=== PATIENT | male | born 1945 | race Caucasian/White ===

== ENCOUNTER 2023-02-06 15:15 | Inpatient (IN) ==
--- NOTE | 2023-02-06 16:35 | XRay Report ---
XR chest 1V not portable HISTORY: Sepsis COMPARISON: None. FINDINGS: No pneumothorax. There are low lung volumes. There is a small right pleural effusion. The r ight Port-A-Cath runs in the distal SVC. The cardiac silhouette is normal in size. There is mild cent ral pulmonary vascular congestion without overt edema. No focal lung consolidations to suggest pneumo verenice. Right basilar linear densities favor subsegmental atelectasis. IMPRESSION: 1. Low lung volumes. 2. Small right pleural effusion. 3. Mild pulmonary vascular congestion without overt edema. ACT 112: Negative or not required by law. Electronically signed by: Clarke Garcia M.D. 02/06/2023 4:34 PM
[2023-02-06 17:28] LABS: Basophils # (auto) 0.04 K/uL (0.00-0.20); Basophils % (auto) 0.6 %; Eosinophils # (auto) 0.02 K/uL (0.00-0.50); Eosinophils % (auto) 0.3 %; Hematocrit (blood only) 31.5 % (42.0-52.0); Hemoglobin 10.9 g/dl (14.0-18.0); Immature Granulocytes # (auto) 0.11 K/uL (0.01-0.20); Immature Granulocytes % (auto) 1.7 %; Lymphocytes # (auto) 1.17 K/uL (1.20-3.40); Mean Corpuscular Hemoglobin 35.9 pg (25.0-34.0); Mean Corpuscular Hgb Conc 34.6 g/dL (32.0-36.0); Mean Corpuscular Volume 103.6 fL (80.0-100.0); Mean Platelet Volume 9.7 fL (9.4-12.4); Monocytes # (auto) 1.44 K/uL (0.11-0.59); Monocytes % (auto) 22.2 %; Neutrophils # (auto) 3.71 K/uL (1.40-6.50); Neutrophils % (auto) 57.2 %; Nucleated RBC # (auto) 0.03 K/uL (0.00-0.12); Nucleated RBC % (auto) 0.5 %; Platelet Count 226 K/uL (130-400); RDW Coefficient of Variation 17.2 % (11.5-14.5); RDW Standard Deviation 64.7 fL (36.4-46.3); Red Blood Count 3.04 M/uL (4.70-6.10); White Blood Count 6.49 K/ul (4.8-10.8)
[2023-02-06 17:32] LABS: Albumin Globulin Ratio 0.9 (0.9-2); Albumin Level 2.9 gm/dl (3.4-5.0); BUN Creatinine Ratio 20.4 (10-20); Calcium 8.7 mg/dl (8.6-10.3); Creatinine Clr Calc Pharmacy 64.4 ml/min; Est GFR (African American) 91.5 ml/min; Est GFR (Non-African American) 78.9 ml/min; Globulin 3.1 gm/dl (2.5-4.0); Magnesium 1.8 mg/dl (1.7-2.4); Potassium 3.6 mmol/L (3.5-5.1)
--- NOTE | 2023-02-06 17:36 | Emergency Department Note ---
Impression & Plan Ascites, DVT (deep venous thrombosis), Pedal edema, Metastatic cancer, Elevated lactic acid level ED Provider Note NAME: SINCERE FATIMA AGE: 77 SEX: M : 1945 ARRIVES VIA: Walk-In INFORMANT: [Patient][family] ED PROVIDER(S): [Power Acosta MD] CHIEF COMPLAINT: Swelling HISTORY OF PRESENT ILLNESS: The patient is a 77-year-old male who presents to the ER with increasing abdomin al swelling for the last 2 or 3 days. He does have pedal edema bilaterally as well but, the leg swelling is not new. He complains of some pain to swallow for the last 2 days. The pain is across the lower chest. He has not been short of breath. No fever. No real abdominal pain. The patient was seen in the outpatient setting and told to report the ED for further work-up and likely, eventually, a paracentesis. The patient has a history of DVT as well as colon cancer. He is currently on Eliquis. PMHx/PSHx: See Below SOCIAL HISTORY: See Below. PHYSICAL EXAM: GENERAL: Patient is in no acute distress. HEENT: No acute trauma, normocephalic atraumatic, mucous membranes moist, no nasal congestion. NECK: No stridor, no adenopathy, no meningismus, trachea is midline. LUNGS: Crackles heard at both lower lung rodriguez, no wheezing, no respiratory distress. HEART: Without murmurs gallops or rubs, regular rate and rhythm. Heart tones are quite distant. ABDOMEN: Soft, nontender, bowel sounds positive, no peritonitis. Abdominal distention noted. EXTREMITIES: No cyanosis, moderate bilateral pedal edema, full range of motion of all the joints without pain or difficulty, no signs for acute trauma. NEUROLOGIC: Oriented x 3, no acute motor or sensory deficits, no focal weakness. SKIN: No rash, no jaundice, no diaphoresis. Pale. DIFFERENTIAL DIAGNOSIS: Ascites, DVT, bowel obstruction, renal or liver failure, electrolyte imbalance, venous insufficiency, fluid overload, CHF, among others. EMERGENCY DEPARTMENT COURSE/PROCEDURES: Prior/Outside records reviewed: Heme/oncology note. ECG per my interpretation: Indication was swelling and edema. The ECG shows a normal sinus rhythm with a rate of 100. There is diffuse nonspecific ST change. There is no obvious ST elevation, no PVCs. QTc is 454. Continuous Cardiac Monitoring per my interpretation: An order was placed for continuous cardiac monitoring. The monitor shows a rate of 80 with normal sinus rhythm. MEDICAL DECISION MAKING: There is no leukocytosis. The patient does have a mild anemia, likely from his cancer and chronic illness. There are no old values to use for comparison. There was a normal platelet count. INR was slightly elevated. No concerning electrolyte abnormality, no renal failure. Lactic acid level was elevated consistent with potential infection versus just dehydration. Alk phos was somewhat elevated consistent with his metastatic cancer. Procalcitonin level was not not elevated making serious bacterial infection less likely. ECG showed a normal sinus rhythm, no ischemia. Cardiac enzyme testing x1 was not consistent with acute cardiac injury. Abdominal and pelvis CT showed ascites plus findings consistent with metastatic cancer. There was no bowel obstruction. There was a DVT found incidentally on the CT scan. Bilateral lower extremity ultrasound shows an extensive DVT on the right. Chest film shows some parenchymal congestion, no pneumonia per my review. On my exam, there was no peritonitis. The patient was not febrile or toxic. Patient received a 500 cc saline bolus. He was given IV cefepime as empiric antibiotic coverage. The patient is in need of a hospital stay. He has ascites. He may benefit from a paracentesis as an inpatient. He has significant edema and was found to have a extensive right leg DVT. He has metastatic cancer. I did speak with the patient and his family, hospitalization is indicated for further work-up and care. DISPOSITION: Patient's presentation and findings warrant a hospital stay. Past Med/Surg History Medical History Metastatic cancer Social History Feels Safe at Home: Yes Home Meds Home Medications Medication Instructions Recorded Confirmed apixaban 5 mg tablet (Eliquis) 5 mg PO BID 02/07/23 02/07/23 buspirone 10 mg tablet 10 mg PO TID 02/07/23 02/07/23 escitalopram oxalate 10 mg tablet 10 mg PO DAILY 02/07/23 02/07/23 hydrochlorothiazide 25 mg tablet 25 mg PO DAILY 02/07/23 02/07/23 oxycodone 5 mg tablet 5 mg PO Q4H PRN Pain 02/07/23 02/07/23 spironolactone 50 mg tablet 50 mg PO DAILY 02/07/23 02/07/23 Results & Data (ED) Vital Signs Vital Signs - 24 hr 02/06/23 15:46 02/06/23 17:22 02/06/23 17:22 Temperature 37.0 C Temperature Source Oral Pulse Rate 108 H 80 Pulse Rate [Apical] 80 Pulse Rate from SpO2 Sensor Pulse Rhythm Regular Pulse Rhythm [Apical] Regular Pulse Strength [Apical] Respiratory Rate 20 20 20 Respiratory Effort / Characteristics Non-Labored Non-Labored Spontaneous Respiratory Depth Normal Normal Respiratory Pattern Blood Pressure 98/74 L Blood Pressure [Left Arm] 140/97 Blood Pressure Mean 82 Blood Pressure Mean [Left Arm] 111 Blood Pressure Position Sitting Blood Pressure Position [Left Arm] Pulse Oximetry 97 99 99 Oxygen Delivery Method Room Air Room Air Room Air Sepsis Recent Fever Within 48 Hours No Sepsis New/Unexplained Change in Mental Status No Sepsis Action Taken by Nursing Physician Notified 02/06/23 17:42 02/06/23 18:33 02/06/23 18:43 Temperature Temperature Source Pulse Rate 82 Pulse Rate [Apical] 85 Pulse Rate from SpO2 Sensor Pulse Rhythm Pulse Rhythm [Apical] Regular Pulse Strength [Apical] Normal Respiratory Rate 20 Respiratory Effort / Characteristics Non-Labored Spontaneous Respiratory Depth Normal Respiratory Pattern Regular Blood Pressure Blood Pressure [Left Arm] 114/88 Blood Pressure Mean Blood Pressure Mean [Left Arm] 96 Blood Pressure Position Blood Pressure Position [Left Arm] Semi-fowlers Pulse Oximetry 96 94 Oxygen Delivery Method Room Air Room Air Sepsis Recent Fever Within 48 Hours Sepsis New/Unexplained Change in Mental Status Sepsis Action Taken by Nursing 02/06/23 17:22 02/06/23 17:22 02/06/23 17:30 Temperature Temperature Source Pulse Rate 66 88 Pulse Rate [Apical] Pulse Rate from SpO2 Sensor 93 H 90 Pulse Rhythm Pulse Rhythm [Apical] Pulse Strength [Apical] Respiratory Rate 6 L 20 Respiratory Effort / Characteristics Respiratory Depth Respiratory Pattern Blood Pressure 140/97 Blood Pressure [Left Arm] Blood Pressure Mean 125 Blood Pressure Mean [Left Arm] Blood Pressure Position Blood Pressure Position [Left Arm] Pulse Oximetry 100 96 Oxygen Delivery Method Sepsis Recent Fever Within 48 Hours Sepsis New/Unexplained Change in Mental Status Sepsis Action Taken by Nursing 02/06/23 17:31 02/06/23 17:31 02/06/23 18:00 Temperature Temperature Source Pulse Rate 106 H Pulse Rate [Apical] Pulse Rate from SpO2 Sensor 92 H Pulse Rhythm Pulse Rhythm [Apical] Pulse Strength [Apical] Respiratory Rate 18 Respiratory Effort / Characteristics Respiratory Depth Respiratory Pattern Blood Pressure 110/74 110/74 105/74 Blood Pressure [Left Arm] Blood Pressure Mean 76 86 88 Blood Pressure Mean [Left Arm] Blood Pressure Position Blood Pressure Position [Left Arm] Pulse Oximetry 98 Oxygen Delivery Method Sepsis Recent Fever Within 48 Hours Sepsis New/Unexplained Change in Mental Status Sepsis Action Taken by Nursing 02/06/23 18:00 02/06/23 18:30 02/06/23 18:30 Temperature Temperature Source Pulse Rate 85 Pulse Rate [Apical] Pulse Rate from SpO2 Sensor 83 88 Pulse Rhythm Pulse Rhythm [Apical] Pulse Strength [Apical] Respiratory Rate 14 21 Respiratory Effort / Characteristics Respiratory Depth Respiratory Pattern Blood Pressure 114/88 Blood Pressure [Left Arm] Blood Pressure Mean 94 Blood Pressure Mean [Left Arm] Blood Pressure Position Blood Pressure Position [Left Arm] Pulse Oximetry 93 94 Oxygen Delivery Method Sepsis Recent Fever Within 48 Hours Sepsis New/Unexplained Change in Mental Status Sepsis Action Taken by Nursing 02/06/23 18:50 02/06/23 19:01 02/06/23 19:30 Temperature Temperature Source Pulse Rate 84 83 Pulse Rate [Apical] Pulse Rate from SpO2 Sensor 76 84 78 Pulse Rhythm Pulse Rhythm [Apical] Pulse Strength [Apical] Respiratory Rate 18 20 15 Respiratory Effort / Characteristics Respiratory Depth Respiratory Pattern Blood Pressure 113/83 122/68 Blood Pressure [Left Arm] Blood Pressure Mean 93 86 Blood Pressure Mean [Left Arm] Blood Pressure Position Blood Pressure Position [Left Arm] Pulse Oximetry 96 97 95 Oxygen Delivery Method Sepsis Recent Fever Within 48 Hours Sepsis New/Unexplained Change in Mental Status Sepsis Action Taken by Nursing 02/06/23 19:31 02/06/23 20:55 02/06/23 21:40 Temperature Temperature Source Pulse Rate 75 93 H 86 Pulse Rate [Apical] Pulse Rate from SpO2 Sensor Pulse Rhythm Pulse Rhythm [Apical] Pulse Strength [Apical] Respiratory Rate 14 21 Respiratory Effort / Characteristics Respiratory Depth Respiratory Pattern Blood Pressure 104/77 Blood Pressure [Left Arm] Blood Pressure Mean 86 Blood Pressure Mean [Left Arm] Blood Pressure Position Blood Pressure Position [Left Arm] Pulse Oximetry Oxygen Delivery Method Sepsis Recent Fever Within 48 Hours Sepsis New/Unexplained Change in Mental Status Sepsis Action Taken by Nursing 02/06/23 20:56 02/06/23 20:56 02/06/23 21:00 Temperature Temperature Source Pulse Rate 84 Pulse Rate [Apical] Pulse Rate from SpO2 Sensor Pulse Rhythm Pulse Rhythm [Apical] Pulse Strength [Apical] Respiratory Rate 19 Respiratory Effort / Characteristics Respiratory Depth Respiratory Pattern Blood Pressure 121/89 120/92 Blood Pressure [Left Arm] Blood Pressure Mean 98 113 Blood Pressure Mean [Left Arm] Blood Pressure Position Blood Pressure Position [Left Arm] Pulse Oximetry Oxygen Delivery Method Sepsis Recent Fever Within 48 Hours Sepsis New/Unexplained Change in Mental Status Sepsis Action Taken by Nursing 02/06/23 21:00 02/06/23 21:30 02/06/23 21:31 Temperature Temperature Source Pulse Rate 76 81 91 H Pulse Rate [Apical] Pulse Rate from SpO2 Sensor 78 Pulse Rhythm Pulse Rhythm [Apical] Pulse Strength [Apical] Respiratory Rate 25 H 17 21 Respiratory Effort / Characteristics Respiratory Depth Respiratory Pattern Blood Pressure 120/92 113/82 Blood Pressure [Left Arm] Blood Pressure Mean 101 92 Blood Pressure Mean [Left Arm] Blood Pressure Position Blood Pressure Position [Left Arm] Pulse Oximetry 96 Oxygen Delivery Method Sepsis Recent Fever Within 48 Hours Sepsis New/Unexplained Change in Mental Status Sepsis Action Taken by Nursing 02/06/23 22:00 02/06/23 23:14 02/06/23 23:30 Temperature Temperature Source Pulse Rate 83 88 77 Pulse Rate [Apical] Pulse Rate from SpO2 Sensor 78 Pulse Rhythm Pulse Rhythm [Apical] Pulse Strength [Apical] Respiratory Rate 16 18 18 Respiratory Effort / Characteristics Respiratory Depth Respiratory Pattern Blood Pressure 110/82 105/82 97/82 L Blood Pressure [Left Arm] Blood Pressure Mean 91 89 87 Blood Pressure Mean [Left Arm] Blood Pressure Position Blood Pressure Position [Left Arm] Pulse Oximetry 94 96 97 Oxygen Delivery Method Sepsis Recent Fever Within 48 Hours Sepsis New/Unexplained Change in Mental Status Sepsis Action Taken by Longterm Medications Current Medication List: was personally reviewed by me Laboratory Data Attestation: I reviewed the patient's lab results. 02/06/23 16:42 02/06/23 16:42 Lab Results 02/06/23 02/06/23 02/06/23 Range/Units 16:42 16:42 16:42 WBC 6.49 (4.8-10.8) K/ul RBC 3.04 L (4.70-6.10) M/uL Hgb 10.9 L (14.0-18.0) g/dl Hct 31.5 L (42.0-52.0) % MCV 103.6 H (80.0-100.0) fL MCH 35.9 H (25.0-34.0) pg MCHC 34.6 (32.0-36.0) g/dL RDW Std Deviation 64.7 H (36.4-46.3) fL RDW Coeff of Mayra 17.2 H (11.5-14.5) % Plt Count 226 (130-400) K/uL MPV 9.7 (9.4-12.4) fL Immature Gran % (Auto) 1.7 % Neut % (Auto) 57.2 % Lymph % (Auto) 18.0 % Wolfe % (Auto) 22.2 % Eos % (Auto) 0.3 % Baso % (Auto) 0.6 % Neut # (Auto) 3.71 (1.40-6.50) K/uL Lymph # (Auto) 1.17 L (1.20-3.40) K/uL Wolfe # (Auto) 1.44 H (0.11-0.59) K/uL Eos # (Auto) 0.02 (0.00-0.50) K/uL Baso # (Auto) 0.04 (0.00-0.20) K/uL Immature Gran # (Auto) 0.11 (0.01-0.20) K/uL Absolute Nucleated RBC 0.03 (0.00-0.12) K/uL Nucleated RBC % (auto) 0.5 % PT 13.5 H (9.0-12.0) Seconds INR 1.2 H (0.9-1.1) APTT 26.9 (21.0-31.0) Seconds PTT Ratio 1.0 Sodium (136-145) mmol/L Potassium (3.5-5.1) mmol/L Chloride (98-107) mmol/L Carbon Dioxide (21-32) mmol/L Anion Gap (3-11) BUN (6-23) mg/dl Creatinine (0.6-1.4) mg/dl Est Cr Clr Drug Dosing ml/min Est GFR ( Amer) ml/min Est GFR (Non-Af Amer) ml/min BUN/Creatinine Ratio (10-20) Glucose (70-99(Fasting)) mg/dl Lactate 3.0 H* (0.4-2.0) mmol/L Calcium (8.6-10.3) mg/dl Magnesium (1.7-2.4) mg/dl Total Bilirubin (0.2-1.0) mg/dl AST (13-39) U/L ALT (7-52) U/L Alkaline Phosphatase (34-104) U/L Troponin I High Sens (0-20) pg/ml Total Protein (6.0-8.3) gm/dl Albumin (3.4-5.0) gm/dl Globulin (2.5-4.0) gm/dl Albumin/Globulin Ratio (0.9-2) Procalcitonin (0-0.5) ng/ml 02/06/23 02/06/23 02/06/23 Range/Units 16:42 16:42 18:52 WBC (4.8-10.8) K/ul RBC (4.70-6.10) M/uL Hgb (14.0-18.0) g/dl Hct (42.0-52.0) % MCV (80.0-100.0) fL MCH (25.0-34.0) pg MCHC (32.0-36.0) g/dL RDW Std Deviation (36.4-46.3) fL RDW Coeff of Mayra (11.5-14.5) % Plt Count (130-400) K/uL MPV (9.4-12.4) fL Immature Gran % (Auto) % Neut % (Auto) % Lymph % (Auto) % Wolfe % (Auto) % Eos % (Auto) % Baso % (Auto) % Neut # (Auto) (1.40-6.50) K/uL Lymph # (Auto) (1.20-3.40) K/uL Wolfe # (Auto) (0.11-0.59) K/uL Eos # (Auto) (0.00-0.50) K/uL Baso # (Auto) (0.00-0.20) K/uL Immature Gran # (Auto) (0.01-0.20) K/uL Absolute Nucleated RBC (0.00-0.12) K/uL Nucleated RBC % (auto) % PT (9.0-12.0) Seconds INR (0.9-1.1) APTT (21.0-31.0) Seconds PTT Ratio Sodium 133 L (136-145) mmol/L Potassium 3.6 (3.5-5.1) mmol/L Chloride 101 (98-107) mmol/L Carbon Dioxide 25 (21-32) mmol/L Anion Gap 7 (3-11) BUN 19 (6-23) mg/dl Creatinine 0.93 (0.6-1.4) mg/dl Est Cr Clr Drug Dosing 64.4 ml/min Est GFR ( Amer) 91.5 ml/min Est GFR (Non-Af Amer) 78.9 ml/min BUN/Creatinine Ratio 20.4 H (10-20) Glucose 106 H (70-99(Fasting)) mg/dl Lactate 2.4 H* (0.4-2.0) mmol/L Calcium 8.7 (8.6-10.3) mg/dl Magnesium 1.8 (1.7-2.4) mg/dl Total Bilirubin 1.0 (0.2-1.0) mg/dl AST 31 (13-39) U/L ALT 16 (7-52) U/L Alkaline Phosphatase 283 H (34-104) U/L Troponin I High Sens 12.0 (0-20) pg/ml Total Protein 6.0 (6.0-8.3) gm/dl Albumin 2.9 L (3.4-5.0) gm/dl Globulin 3.1 (2.5-4.0) gm/dl Albumin/Globulin Ratio 0.9 (0.9-2) Procalcitonin 0.28 (0-0.5) ng/ml Administered Medications Discontinued Medications Sodium Chloride (Nss) 500 mls @ 999 mls/hr IV .Q31M ONE Stop: 02/06/23 18:19 Last Infusion: 02/06/23 19:11 Dose: 0 mls/hr Documented By: Admin: 02/06/23 18:29 Dose: 999 mls/hr Documented By: CURRY Cefepime HCl (Maxipime) 2,000 mg in 20 mls @ 5 mls/min IV NOW STA; Protocol Stop: 02/06/23 17:52 Last Admin: 02/06/23 18:29 Dose: 5 mls/min Documented By: CURRY Ioversol (Optiray 320 100ml) 94 ml IV ONCE ONE Stop: 02/06/23 18:23 Last Admin: 02/06/23 18:22 Dose: 94 ml Documented By: GELY Imaging Data Radiologist's Impression: Chest X-Ray 02/06/23 15:51 XR chest 1V not portable HISTORY: Sepsis COMPARISON: None. FINDINGS: No pneumothorax. There are low lung volumes. There is a small right pleural effusion. The right Port-A-Cath runs in the distal SVC. The cardiac silhouette is normal in size. There is mild central pulmonary vascular congestion without overt edema. No focal lung consolidations to suggest pneumonia. Right basilar linear densities favor subsegmental atelectasis. IMPRESSION: 1. Low lung volumes. 2. Small right pleural effusion. 3. Mild pulmonary vascular congestion without overt edema. ACT 112: Negative or not required by law. Electronically signed by: Clarke Garcia M.D. 02/06/2023 4:34 PM Abdomen/Pelvis CT 02/06/23 17:28 CT SCAN OF THE ABDOMEN AND PELVIS WITH IV CONTRAST CLINICAL HISTORY: Generalized abdominal pain. Bloating. Nausea. Cancer history. COMPARISON STUDY: Abdominal ultrasound dated 02/06/2023. TECHNIQUE: Following the IV administration of 94 cc of Optiray 320, CT scan of the abdomen and pelvis is performed from the lung bases to the proximal femora. Images are reviewed in the axial, sagittal, and coronal planes. IV contrast was administered without complication. A dose lowering technique was utilized adhering to the principles of ALARA. CT DOSE: 1301.41 mGy.cm FINDINGS: Lung bases: The tip of a central venous infusion port terminates within the right atrium. The heart is normal in size and without pericardial effusion. There are coronary artery calcifications. There are small pleural effusions, right larger than left with dependent atelectasis. No airspace consolidation is identified typical for pneumonia. There is a small hiatal hernia. Liver: The contrast-enhanced liver is enlarged, measuring 22 cm in length. There is no intrahepatic biliary ductal dilatation. The hepatic veins and portal veins are patent. An approximately 20 cm complex low-attenuation/cystic lesion largely replaces the right lobe of the liver. Numerous additional low-attenuation/cystic lesions are seen throughout the left lobe Gallbladder: Unremarkable. Spleen: Normal in size and attenuation. Pancreas: Unremarkable. Adrenal glands: Unremarkable. Kidneys: The contrast enhanced kidneys are normal in size and without hydroneph rosis. The kidneys enhance symmetrically. There is a 2 mm nonobstructing right renal calculus. No left renal calculi are identified on this contrast-enhanced examination. A 1.4 cm cyst is noted in the left upper pole. A 1.4 cm indeterminate cortical hypodensity is seen in the lower pole right kidney on image #205. Abdominal vasculature: The abdominal aorta is normal in course and caliber. Deep venous thrombosis is identified in the right common femoral and superficial f emoral veins. Bowel: There is no bowel obstruction. The appendix is normal as visualized. Peritoneum: There is a moderate to large volume of abdominopelvic ascites. No intraperitoneal free air is seen. Question soft tissue implants along the trans verse colon on axial image #189. Lymphadenopathy: None. Pelvic viscera: The prostate gland is enlarged and heterogeneous. The bladder wall is thickened/ventilated indicating chronic outlet obstruction. Skeletal structures: The skeletal structures are osteopenic. There is mild lumbosacral spondylosis. No lytic or blastic lesions are seen. Soft tissues: There is anasarca of the body wall. IMPRESSION: 1. Deep venous thrombosis is seen within the right common femoral and superficial femoral veins. 2. Small pleural effusions, right larger than left. 3. There is a moderate to large volume of abdominopelvic ascites as well as anasarca of the body wall. 4. An approximately 20 cm low-attenuation mass/cystic lesion largely replaces the right lobe of liver. Numerous additional low-attenuation/cystic lesions are seen throughout the left lobe. Metastatic disease is not excluded. Correlate with the oncological history and any prior outside imaging studies. 5. Question soft tissue implants along the transverse colon which could represent peritoneal carcinomatosis. Again, correlate with the oncological history. 6. Punctate nonobstructing right renal calyx was. 7. An indeterminate 14 mm lesion is seen in the lower pole of the right kidney. This could represent a complex cyst or potentially a renal neoplasm. Correlate with any prior outside imaging studies. 8. Additional findings as above. ACT 112: Negative or not required by law. Electronically signed by: Power Berrios M.D. 02/06/2023 7:35 PM Venous Doppler Study 10/13/23 17:28 ULTRASOUND BILATERAL LOWER EXTREMITY VENOUS CLINICAL HISTORY: Lower extremity edema COMPARISON STUDY: No priors. TECHNIQUE: Real-time, grayscale, and color Doppler sonography of the deep veins of the right and left lower extremity was performed from the inguinal crease to the calf. Compression and augmentation were utilized. FINDINGS: Right lower extremity: Nonocclusive deep venous thrombosis is seen in the common femoral vein. Occlusive deep venous thrombosis is seen throughout the superficial femoral vein. Nonocclusive thrombus is seen within the popliteal vein. There is likely nonocclusive superficial thrombus within the great saphenous vein near the junction with the common femoral vein. The visualized calf veins are appeared patent. Left lower extremity: There is no sonographic evidence of deep venous thrombosis in the left lower extremity. The common femoral, superficial femoral, and popliteal veins are patent and normally compressible. The greater saphenous vein and the profunda femoris vein at the junction with the common femoral vein are clear. The visualized calf veins are patent. IMPRESSION: 1. Extensive right lower extremity deep venous thrombosis as above. 2. There is no sonographic evidence of left lower extremity deep venous thrombosis. ACT 112: Negative or not required by law. Electronically signed by: Power Berrios M.D. 02/06/2023 9:47 PM Discharge Plan Visit Data Chief Complaint: Edema To Extremity Stated Complaint: EDEMA TO ABD, ED Provider: Power Acosta Discharge Problem: Ascites, DVT (deep venous thrombosis), Pedal edema, Metastatic cancer, Elevated lactic acid level Patient Disposition: Admitted As Inpatient Condition: Fair Forms Stand Alone Forms: [facility] Prescriptions Prescriptions: No Action buspirone 10 mg tablet 10 mg PO TID hydrochlorothiazide 25 mg tablet 25 mg PO DAILY spironolactone 50 mg tablet 50 mg PO DAILY oxycodone 5 mg tablet 5 mg PO Q4H PRN (Reason: Pain) escitalopram oxalate 10 mg tablet 10 mg PO DAILY Eliquis 5 mg tablet 5 mg PO BID Referrals Referrals: PCP,NO [Physician] - Ascites Qualifiers: Ascites type: malignant Qualified Code(s): R18.0 - Malignant ascites DVT (deep venous thrombosis) Qualifiers: DVT location: lower extremity Affected thrombotic vein of extremity: unspecified vein of extremity Chronicity: acute Laterality: right Qualified Code(s): I82.401 - Acute embolism and thrombosis of unspecified deep veins of right lower extremity Metastatic cancer Qualifiers: Area of secondary neoplastic involvement: unspecified site Qualified Code(s): C 79.9 - Secondary malignant neoplasm of unspecified site
[2023-02-06] MEDS ORDERED: CEFEPIME 2,000 MG/20 ML VIAL IV STA (17:49)
[2023-02-06] MEDS ORDERED: SODIUM CHLORIDE 0.9% 500 ML IV ONE (17:49)
[2023-02-06 17:53] LABS: INR 1.2 (0.9-1.1); Partial Thromboplastin Time 26.9 Seconds (21.0-31.0); Prothrombin Time 13.5 Seconds (9.0-12.0)
[2023-02-06] MEDS ORDERED: OPTIRAY 320 100ml IV ONE (18:22)
--- NOTE | 2023-02-06 19:37 | CT Scan Report ---
CT SCAN OF THE ABDOMEN AND PELVIS WITH IV CONTRAST CLINICAL HISTORY: Generalized abdominal pain. Bloating. Nausea. Cancer history. COMPARISON STUDY: Abdominal ultrasound dated 02/06/2023. TECHNIQUE: Following the IV administration of 94 cc of Optiray 320, CT scan of the abdomen and pelvi s is performed from the lung bases to the proximal femora. Images are reviewed in the axial, sagittal , and coronal planes. IV contrast was administered without complication. A dose lowering technique wa s utilized adhering to the principles of ALARA. CT DOSE: 1301.41 mGy.cm FINDINGS: Lung bases: The tip of a central venous infusion port terminates within the right atrium. The heart i s normal in size and without pericardial effusion. There are coronary artery calcifications. There ar e small pleural effusions, right larger than left with dependent atelectasis. No airspace consolidati on is identified typical for pneumonia. There is a small hiatal hernia. Liver: The contrast-enhanced liver is enlarged, measuring 22 cm in length. There is no intrahepatic b iliary ductal dilatation. The hepatic veins and portal veins are patent. An approximately 20 cm compl ex low-attenuation/cystic lesion largely replaces the right lobe of the liver. Numerous additional lo w-attenuation/cystic lesions are seen throughout the left lobe Gallbladder: Unremarkable. Spleen: Normal in size and attenuation. Pancreas: Unremarkable. Adrenal glands: Unremarkable. Kidneys: The contrast enhanced kidneys are normal in size and without hydronephrosis. The kidneys enh ance symmetrically. There is a 2 mm nonobstructing right renal calculus. No left renal calculi are id entified on this contrast-enhanced examination. A 1.4 cm cyst is noted in the left upper pole. A 1.4 cm indeterminate cortical hypodensity is seen in the lower pole right kidney on image #205. Abdominal vasculature: The abdominal aorta is normal in course and caliber. Deep venous thrombosis is identified in the right common femoral and superficial femoral veins. Bowel: There is no bowel obstruction. The appendix is normal as visualized. Peritoneum: There is a moderate to large volume of abdominopelvic ascites. No intraperitoneal free ai r is seen. Question soft tissue implants along the transverse colon on axial image #189. Lymphadenopathy: None. Pelvic viscera: The prostate gland is enlarged and heterogeneous. The bladder wall is thickened/venti lated indicating chronic outlet obstruction. Skeletal structures: The skeletal structures are osteopenic. There is mild lumbosacral spondylosis. N o lytic or blastic lesions are seen. Soft tissues: There is anasarca of the body wall. IMPRESSION: 1. Deep venous thrombosis is seen within the right common femoral and superficial femoral veins. 2. Small pleural effusions, right larger than left. 3. There is a moderate to large volume of abdominopelvic ascites as well as anasarca of the body wall . 4. An approximately 20 cm low-attenuation mass/cystic lesion largely replaces the right lobe of liver . Numerous additional low-attenuation/cystic lesions are seen throughout the left lobe. Metastatic di sease is not excluded. Correlate with the oncological history and any prior outside imaging studies. 5. Question soft tissue implants along the transverse colon which could represent peritoneal carcinom atosis. Again, correlate with the oncological history. 6. Punctate nonobstructing right renal calyx was. 7. An indeterminate 14 mm lesion is seen in the lower pole of the right kidney. This could represent a complex cyst or potentially a renal neoplasm. Correlate with any prior outside imaging studies. 8. Additional findings as above. ACT 112: Negative or not required by law. Electronically signed by: Power Berrios M.D. 02/06/2023 7:35 PM
--- NOTE | 2023-02-06 21:50 | Ultrasound Report ---
ULTRASOUND BILATERAL LOWER EXTREMITY VENOUS CLINICAL HISTORY: Lower extremity edema COMPARISON STUDY: No priors. TECHNIQUE: Real-time, grayscale, and color Doppler sonography of the deep veins of the right and left lower extremity was performed from the inguinal crease to the calf. Compression and augmentation wer e utilized. FINDINGS: Right lower extremity: Nonocclusive deep venous thrombosis is seen in the common femoral vein. Occlus kyle deep venous thrombosis is seen throughout the superficial femoral vein. Nonocclusive thrombus is seen within the popliteal vein. There is likely nonocclusive superficial thrombus within the great sa phenous vein near the junction with the common femoral vein. The visualized calf veins are appeared p atent. Left lower extremity: There is no sonographic evidence of deep venous thrombosis in the left lower ex tremity. The common femoral, superficial femoral, and popliteal veins are patent and normally luis fernando sible. The greater saphenous vein and the profunda femoris vein at the junction with the common femor al vein are clear. The visualized calf veins are patent. IMPRESSION: 1. Extensive right lower extremity deep venous thrombosis as above. 2. There is no sonographic evidence of left lower extremity deep venous thrombosis. ACT 112: Negative or not required by law. Electronically signed by: Power Berrios M.D. 02/06/2023 9:47 PM
--- NOTE | 2023-02-06 23:47 | History & Physical Report ---
Date of Service February 06, 2023 Assessment & Plan (1) Abdominal ascites: Plan: 77-year-old male with past med significant for metastatic colon cancer, iron deficiency anemia, elevated LFTs, general anxiety disorder, history of DVT, presents with increasing abdominal distention Abdominal ascites Mostly malignant dose of IV Lasix Continue home spironolactone Needs paracentesis Metastatic colon cancer Currently on chemo every 2 weeks Follows with heme-onc DVT Recently diagnosed on right lower extremity On Eliquis Generalized anxiety disorder Home meds Iron deficiency anemia Follow labs DVT prophylaxis On Eliquis Disposition med/telemetry Full code History of Present Illness Chief Complaint: ascites, metastatic colon cancer Primary Care Provider: Suzie Robbins 77-year-old male with past med significant for metastatic colon cancer, iron deficiency anemia, elevated LFTs, general anxiety disorder, history of DVT, presents with increasing abdominal distention. He was placed on diuretics by heme-onc but but states did not improve much. Currently resting comfortably and hemodynamically stable. Denies any headache. No sore throat or cough. Has some acid reflux. Denies any chest pain or shortness of breath. Denies abdominal pain. States normal bowel and bladder movements. Appetite is good. Ambulates with a cane. Sometimes need assistance while ambulating. Lives with his . No fevers. Past medical history. As mentioned above Past surgical history. IR biopsy Social history. . No smoking. No alcohol. No drug use. Family history. No family history on file Allergies Allergy/AdvReac Type Severity Reaction Status Date / Time prochlorperazine AdvReac Anaphylaxis Verified 02/07/23 03:22 [From Compazine] Home Medications Medication Instructions Recorded Confirmed Type apixaban 5 mg tablet (Eliquis) 5 mg PO BID 02/07/23 02/07/23 History buspirone 10 mg tablet 10 mg PO TID 02/07/23 02/07/23 History escitalopram oxalate 10 mg tablet 10 mg PO DAILY 02/07/23 02/07/23 History hydrochlorothiazide 25 mg tablet 25 mg PO DAILY 02/07/23 02/07/23 History oxycodone 5 mg tablet 5 mg PO Q4H PRN Pain 02/07/23 02/07/23 History spironolactone 50 mg tablet 50 mg PO DAILY 02/07/23 02/07/23 History Past Med/Surg History Medical History Metastatic cancer Social History Smoking Status: Former smoker Hx Alcohol Use: No Hx Substance Use: No Preferred Language: Cypriot Communication Ability: Effective 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 ENT- oropharynx clear Neck- supple, no JVD. Lungs- clear to auscultation , no wheezing or crackles. Heart- regular rhythm; no murmur, no gallop. Abdomen- normal bowel sounds, distended non tender Extremities- lower extremity edema present, no erythema seen. Neuro- alert, oriented x 3; PERRL, EOMI; no facial palsy; no dysarthria; moves extremities. Skin- warm & dry Results & Data Results & Data Vital Signs (Past 12 Hours) Vital Signs Temp Pulse Pulse Resp BP BP Pulse Ox 02/06/23 22:00 83 16 110/82 94 02/06/23 21:31 91 H 21 113/82 02/06/23 21:30 81 17 02/06/23 21:00 76 25 H 120/92 96 02/06/23 21:00 120/92 02/06/23 20:56 121/89 02/06/23 20:56 84 19 02/06/23 21:40 86 02/06/23 20:55 93 H 21 104/77 02/06/23 19:31 75 14 02/06/23 19:30 83 15 95 02/06/23 19:01 20 122/68 97 02/06/23 18:50 84 18 113/83 96 02/06/23 18:30 85 21 94 02/06/23 18:30 114/88 02/06/23 18:00 14 93 02/06/23 18:00 105/74 02/06/23 17:31 106 H 18 110/74 98 02/06/23 17:31 110/74 02/06/23 17:30 88 20 96 02/06/23 17:22 66 6 L 100 02/06/23 17:22 140/97 02/06/23 18:43 94 02/06/23 18:33 85 20 114/88 96 02/06/23 17:42 82 02/06/23 17:22 80 20 99 02/06/23 17:22 80 20 140/97 99 02/06/23 15:46 37.0 C 108 H 20 98/74 L 97 O2 Del Method 02/06/23 22:00 02/06/23 21:31 02/06/23 21:30 02/06/23 21:00 02/06/23 21:00 02/06/23 20:56 02/06/23 20:56 02/06/23 21:40 02/06/23 20:55 02/06/23 19:31 02/06/23 19:30 02/06/23 19:01 02/06/23 18:50 02/06/23 18:30 02/06/23 18:30 02/06/23 18:00 02/06/23 18:00 02/06/23 17:31 02/06/23 17:31 02/06/23 17:30 02/06/23 17:22 02/06/23 17:22 02/06/23 18:43 Room Air 02/06/23 18:33 Room Air 02/06/23 17:42 02/06/23 17:22 Room Air 02/06/23 17:22 Room Air 02/06/23 15:46 Room Air Diagnostic Findings Laboratory Results WBC 6.49 K/ul (4.8-10.8) 02/06/23 16:42 RBC 3.04 M/uL (4.70-6.10) L 02/06/23 16:42 Hgb 10.9 g/dl (14.0-18.0) L 02/06/23 16:42 Hct 31.5 % (42.0-52.0) L 02/06/23 16:42 MCV 103.6 fL (80.0-100.0) H 02/06/23 16:42 MCH 35.9 pg (25.0-34.0) H 02/06/23 16:42 MCHC 34.6 g/dL (32.0-36.0) 02/06/23 16:42 RDW Std Deviation 64.7 fL (36.4-46.3) H 02/06/23 16:42 RDW Coeff of Mayra 17.2 % (11.5-14.5) H 02/06/23 16:42 Plt Count 226 K/uL (130-400) 02/06/23 16:42 MPV 9.7 fL (9.4-12.4) 02/06/23 16:42 Immature Gran % (Auto) 1.7 % 02/06/23 16:42 Neut % (Auto) 57.2 % 02/06/23 16:42 Lymph % (Auto) 18.0 % 02/06/23 16:42 [place] % (Auto) 22.2 % 02/06/23 16:42 Eos % (Auto) 0.3 % 02/06/23 16:42 Baso % (Auto) 0.6 % 02/06/23 16:42 Neut # (Auto) 3.71 K/uL (1.40-6.50) 02/06/23 16:42 Lymph # (Auto) 1.17 K/uL (1.20-3.40) L 02/06/23 16:42 [place] # (Auto) 1.44 K/uL (0.11-0.59) H 02/06/23 16:42 Eos # (Auto) 0.02 K/uL (0.00-0.50) 02/06/23 16:42 Baso # (Auto) 0.04 K/uL (0.00-0.20) 02/06/23 16:42 Immature Gran # (Auto) 0.11 K/uL (0.01-0.20) 02/06/23 16:42 Absolute Nucleated RBC 0.03 K/uL (0.00-0.12) 02/06/23 16:42 Nucleated RBC % (auto) 0.5 % 02/06/23 16:42 PT 13.5 Seconds (9.0-12.0) H 02/06/23 16:42 INR 1.2 (0.9-1.1) H 02/06/23 16:42 APTT 26.9 Seconds (21.0-31.0) 02/06/23 16:42 PTT Ratio 1.0 02/06/23 16:42 Sodium 133 mmol/L (136-145) L 02/06/23 16:42 Potassium 3.6 mmol/L (3.5-5.1) 02/06/23 16:42 Chloride 101 mmol/L (98-107) 02/06/23 16:42 Carbon Dioxide 25 mmol/L (21-32) 02/06/23 16:42 Anion Gap 7 (3-11) 02/06/23 16:42 BUN 19 mg/dl (6-23) 02/06/23 16:42 Creatinine 0.93 mg/dl (0.6-1.4) 02/06/23 16:42 Est Cr Clr Drug Dosing 64.4 ml/min 02/06/23 16:42 Est GFR ( Amer) 91.5 ml/min 02/06/23 16:42 Est GFR (Non-Af Amer) 78.9 ml/min 02/06/23 16:42 BUN/Creatinine Ratio 20.4 (10-20) H 02/06/23 16:42 Glucose 106 mg/dl (70-99(Fasting)) H 02/06/23 16:42 Lactate 2.4 mmol/L (0.4-2.0) H* 02/06/23 18:52 Calcium 8.7 mg/dl (8.6-10.3) 02/06/23 16:42 Magnesium 1.8 mg/dl (1.7-2.4) 02/06/23 16:42 Total Bilirubin 1.0 mg/dl (0.2-1.0) 02/06/23 16:42 AST 31 U/L (13-39) 02/06/23 16:42 ALT 16 U/L (7-52) 02/06/23 16:42 Alkaline Phosphatase 283 U/L (34-104) H 02/06/23 16:42 Troponin I High Sens 12.0 pg/ml (0-20) 02/06/23 16:42 Total Protein 6.0 gm/dl (6.0-8.3) 02/06/23 16:42 Albumin 2.9 gm/dl (3.4-5.0) L 02/06/23 16:42 Globulin 3.1 gm/dl (2.5-4.0) 02/06/23 16:42 Albumin/Globulin Ratio 0.9 (0.9-2) 02/06/23 16:42 Procalcitonin 0.28 ng/ml (0-0.5) 02/06/23 16:42 Impressions Chest X-Ray 02/06/23 15:51 XR chest 1V not portable HISTORY: Sepsis COMPARISON: None. FINDINGS: No pneumothorax. There are low lung volumes. There is a small right pleural effusion. The right Port-A-Cath runs in the distal SVC. The cardiac silhouette is normal in size. There is mild central pulmonary vascular congestion without overt edema. No focal lung consolidations to suggest pneumonia. Right basilar linear densities favor subsegmental atelectasis. IMPRESSION: 1. Low lung volumes. 2. Small right pleural effusion. 3. Mild pulmonary vascular congestion without overt edema. ACT 112: Negative or not required by law. Electronically signed by: Clarke Garcia M.D. 02/06/2023 4:34 PM Abdomen/Pelvis CT 02/06/23 17:28 CT SCAN OF THE ABDOMEN AND PELVIS WITH IV CONTRAST CLINICAL HISTORY: Generalized abdominal pain. Bloating. Nausea. Cancer history. COMPARISON STUDY: Abdominal ultrasound dated 02/06/2023. TECHNIQUE: Following the IV administration of 94 cc of Optiray 320, CT scan of the abdomen and pelvis is performed from the lung bases to the proximal femora. Images are reviewed in the axial, sagittal, and coronal planes. IV contrast was administered without complication. A dose lowering technique was utilized adhering to the principles of ALARA. CT DOSE: 1301.41 mGy.cm FINDINGS: Lung bases: The tip of a central venous infusion port terminates within the right atrium. The heart is normal in size and without pericardial effusion. There are coronary artery calcifications. There are small pleural effusions, right larger than left with dependent atelectasis. No airspace consolidation is identified typical for pneumonia. There is a small hiatal hernia. Liver: The contrast-enhanced liver is enlarged, measuring 22 cm in length. There is no intrahepatic biliary ductal dilatation. The hepatic veins and portal veins are patent. An approximately 20 cm complex low-attenuation/cystic lesion largely replaces the right lobe of the liver. Numerous additional low-attenuation/cystic lesions are seen throughout the left lobe Gallbladder: Unremarkable. Spleen: Normal in size and attenuation. Pancreas: Unremarkable. Adrenal glands: Unremarkable. Kidneys: The contrast enhanced kidneys are normal in size and without hydronephrosis. The kidneys enhance symmetrically. There is a 2 mm nonobstructing right renal calculus. No left renal calculi are identified on this contrast-enhanced examination. A 1.4 cm cyst is noted in the left upper pole. A 1.4 cm indeterminate cortical hypodensity is seen in the lower pole right kidney on image #205. Abdominal vasculature: The abdominal aorta is normal in course and caliber. Deep venous thrombosis is identified in the right common femoral and superficial femoral veins. Bowel: There is no bowel obstruction. The appendix is normal as visualized. Peritoneum: There is a moderate to large volume of abdominopelvic ascites. No intraperitoneal free air is seen. Question soft tissue implants along the transverse colon on axial image #189. Lymphadenopathy: None. Pelvic viscera: The prostate gland is enlarged and heterogeneous. The bladder wall is thickened/ventilated indicating chronic outlet obstruction. Skeletal structures: The skeletal structures are osteopenic. There is mild lumbosacral spondylosis. No lytic or blastic lesions are seen. Soft tissues: There is anasarca of the body wall. IMPRESSION: 1. Deep venous thrombosis is seen within the right common femoral and superficial femoral veins. 2. Small pleural effusions, right larger than left. 3. There is a moderate to large volume of abdominopelvic ascites as well as anasarca of the body wall. 4. An approximately 20 cm low-attenuation mass/cystic lesion largely replaces the right lobe of liver. Numerous additional low-attenuation/cystic lesions are seen throughout the left lobe. Metastatic disease is not excluded. Correlate with the oncological history and any prior outside imaging studies. 5. Question soft tissue implants along the transverse colon which could represent peritoneal carcinomatosis. Again, correlate with the oncological history. 6. Punctate nonobstructing right renal calyx was. 7. An indeterminate 14 mm lesion is seen in the lower pole of the right kidney. This could represent a complex cyst or potentially a renal neoplasm. Correlate with any prior outside imaging studies. 8. Additional findings as above. ACT 112: Negative or not required by law. Electronically signed by: Power Berrios M.D. 02/06/2023 7:35 PM Venous Doppler Study 02/06/23 17:28 ULTRASOUND BILATERAL LOWER EXTREMITY VENOUS CLINICAL HISTORY: Lower extremity edema COMPARISON STUDY: No priors. TECHNIQUE: Real-time, grayscale, and color Doppler sonography of the deep veins of the right and left lower extremity was performed from the inguinal crease to the calf. Compression and augmentation were utilized. FINDINGS: Right lower extremity: Nonocclusive deep venous thrombosis is seen in the common femoral vein. Occlusive deep venous thrombosis is seen throughout the super ficial femoral vein. Nonocclusive thrombus is seen within the popliteal vein. There is likely nonocclusive superficial thrombus within the great saphenous vein near the junction with the common femoral vein. The visualized calf veins are appeared patent. Left lower extremity: There is no sonographic evidence of deep venous thrombosis in the left lower extremity. The common femoral, superficial femoral, and popliteal veins are patent and normally compressible. The greater saphenous vein and the profunda femoris vein at the junction with the common femoral vein are clear. The visualized calf veins are patent. IMPRESSION: 1. Extensive right lower extremity deep venous thrombosis as above. 2. There is no sonographic evidence of left lower extremity deep venous thrombosis. ACT 112: Negative or not required by law. Electronically signed by: Power Berrios M.D. 02/06/2023 9:47 PM ECG Additional Comments: ECG. Normal sinus rhythm rate of 100. No acute ST seen.
[2023-02-07] MEDS ORDERED: oxyCODONE HCL IR 5 MG TAB (IMMEDIATE RELEASE) PO PRN (02:18)
[2023-02-07] MEDS ORDERED: Patient's ALLERGY Info needs ENTERED STA (02:20)
[2023-02-07] MEDS ORDERED: FUROSEMIDE 40 MG/4 ML VIAL IV ONE (03:30)
[2023-02-07 04:06] LABS: Appearance Urine Clear (Clear); Bilirubin Urine Negative (Negative); Blood Urine Negative (Negative); Color Urine Yellow; Glucose Urine UA Negative (Negative); Ketones Urine Trace (Negative); Leukocyte Esterase Urine Negative (Negative); Nitrite Urine Negative (Negative); Protein Urine Negative (Negative); Specific Gravity Urine > 1.045 (1.000-1.030); Urobilinogen Urine Negative (Negative)
[2023-02-07 06:02] LABS: Basophils # (auto) 0.03 K/uL (0.00-0.20); Basophils % (auto) 0.5 %; Eosinophils # (auto) 0.04 K/uL (0.00-0.50); Eosinophils % (auto) 0.6 %; Hematocrit (blood only) 29.1 % (42.0-52.0); Hemoglobin 10.1 g/dl (14.0-18.0); Immature Granulocytes # (auto) 0.07 K/uL (0.01-0.20); Immature Granulocytes % (auto) 1.1 %; Lymphocytes # (auto) 1.14 K/uL (1.20-3.40); Lymphocytes % (auto) 18.1 %; Mean Corpuscular Hemoglobin 36.2 pg (25.0-34.0); Mean Corpuscular Hgb Conc 34.7 g/dL (32.0-36.0); Mean Corpuscular Volume 104.3 fL (80.0-100.0); Mean Platelet Volume 9.8 fL (9.4-12.4); Monocytes # (auto) 1.52 K/uL (0.11-0.59); Monocytes % (auto) 24.1 %; Neutrophils % (auto) 55.6 %; Nucleated RBC # (auto) 0.02 K/uL (0.00-0.12); Nucleated RBC % (auto) 0.3 %; Platelet Count 171 K/uL (130-400); RDW Coefficient of Variation 17.6 % (11.5-14.5); RDW Standard Deviation 66.6 fL (36.4-46.3); Red Blood Count 2.79 M/uL (4.70-6.10)
[2023-02-07 06:08] LABS: BUN Creatinine Ratio 23.1 (10-20); Calcium 8.2 mg/dl (8.6-10.3); Creatinine Clr Calc Pharmacy 65.8 ml/min; Est GFR (African American) 93.9 ml/min; Magnesium 1.7 mg/dl (1.7-2.4); Potassium 3.5 mmol/L (3.5-5.1)
[2023-02-07] MEDS: busPIRone 5 MG TAB PO SCH ×3 (08:48→21:35)
[2023-02-07] MEDS: ESCITALOPRAM OXALATE 10 MG TAB PO SCH (08:48)
[2023-02-07] MEDS: SPIRONOLACTONE 25 MG TAB PO SCH (08:48)
[2023-02-07] MEDS ORDERED: APIXABAN 5 MG TABLET PO SCH (09:00)
--- NOTE | 2023-02-07 13:28 | Hospitalist Progress Note ---
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 Reports of gradual abdominal distention. Was sent to the ED for therapeutic paracentesis CT abdomen and pelvis personally reviewed; moderate to large volume abdominal pelvic ascites. 20 cm mass/cystic lesion replaces the right lobe of liver. Questionable peritoneal carcinomatosis. Small pleural effusions, right larger than left. Discussed with radiology; paracentesis cannot be done on weekends. Possibly on Thursday. We will switch over his Eliquis to subcu Lovenox. Hold Lovenox on the day of the paracentesis Continue home spironolactone Acute right lower extremity DVT Extensive right lower extremity DVT on venous duplex. Was started on 10 mg twice daily of Eliquis for a week; now on 5 mg once a day Hold Eliquis for paracentesis on Thursday. Started on Lovenox. Generalized anxiety disorder Home meds Iron deficiency anemia Follow labs DVT prophylaxis On Lovenox Disposition med/telemetry Full code Discussed with over the phone. Answered questions/queries. Time spent evaluating patient, direct bedside care, chart review, placing orders, interpretation of diagnostic studies, discussion with consultants, patient, and family members, as well as other required patient management activities is 60 minutes Please note the above document was generated using voice recognition software. It may contain grammatical, syntax or spelling errors. Any formal questions or concerns about the content, text or information contained within the body of this dictation should be directly addressed to the provider for clarification Admission and Anticipated Discharge Date Admission Date: February 07, 2023 Subjective Patient seen and examined at bedside. He is lying on the bed comfortably; not in any distress. He wants to go home as soon as possible Review of Systems Review of Systems: All systems reviewed & are unremarkable except as noted in Subjective Physical Exam Physical Exam: Constitutional: Awake, alert orient x3; not in distress. Respiratory: normal respiratory effort, lungs clear to auscultation, no wheeze, rales, rhonchi. Normal insp/exp effort, no accessory muscle use Cardiovascular: RRR, no murmur, no edema Vessels: no JVD or carotid bruit Chest: normal inspection of chest Abdomen: Distended, nontender. Bowel sounds present. Musculoskeletal: no cyanosis or clubbing, extremities motor strength 5/5. Right leg swollen compared to left. Skin: no rashes, warm and dry normal turgor Neurologic: PERRL, EOMI, accommodation nl, no face palsy, no dysarthria CN's II- XI intact bilaterally and moves all extremities Psychiatric: A+Ox3, euthymic affect Results & Data Results & Data Vital Signs (Past 12 Hours) Vital Signs Temp Pulse Pulse Resp BP BP BP 02/07/23 07:58 37.3 C 85 16 124/79 02/07/23 02:00 02/07/23 02:00 02/07/23 02:00 37.1 C 91 H 20 131/78 02/07/23 01:30 65 16 108/73 Pulse Ox O2 Del Method 02/07/23 07:58 97 Room Air 02/07/23 02:00 Room Air 02/07/23 02:00 Room Air 02/07/23 02:00 97 Room Air 02/07/23 01:30 97 Laboratory Results Laboratory Results WBC 6.30 K/ul (4.8-10.8) 02/07/23 05:24 RBC 2.79 M/uL (4.70-6.10) L 02/07/23 05:24 Hgb 10.1 g/dl (14.0-18.0) L 02/07/23 05:24 Hct 29.1 % (42.0-52.0) L 02/07/23 05:24 MCV 104.3 fL (80.0-100.0) H 02/07/23 05:24 MCH 36.2 pg (25.0-34.0) H 02/07/23 05:24 MCHC 34.7 g/dL (32.0-36.0) 02/07/23 05:24 RDW Std Deviation 66.6 fL (36.4-46.3) H 02/07/23 05:24 RDW Coeff of Mayra 17.6 % (11.5-14.5) H 02/07/23 05:24 Plt Count 171 K/uL (130-400) 02/07/23 05:24 MPV 9.8 fL (9.4-12.4) 02/07/23 05:24 Immature Gran % (Auto) 1.1 % 02/07/23 05:24 Neut % (Auto) 55.6 % 02/07/23 05:24 Lymph % (Auto) 18.1 % 02/07/23 05:24 [place] % (Auto) 24.1 % 02/07/23 05:24 Eos % (Auto) 0.6 % 02/07/23 05:24 Baso % (Auto) 0.5 % 02/07/23 05:24 Neut # (Auto) 3.50 K/uL (1.40-6.50) 02/07/23 05:24 Lymph # (Auto) 1.14 K/uL (1.20-3.40) L 02/07/23 05:24 [place] # (Auto) 1.52 K/uL (0.11-0.59) H 02/07/23 05:24 Eos # (Auto) 0.04 K/uL (0.00-0.50) 02/07/23 05:24 Baso # (Auto) 0.03 K/uL (0.00-0.20) 02/07/23 05:24 Immature Gran # (Auto) 0.07 K/uL (0.01-0.20) 02/07/23 05:24 Absolute Nucleated RBC 0.02 K/uL (0.00-0.12) 02/07/23 05:24 Nucleated RBC % (auto) 0.3 % 02/07/23 05:24 PT 13.5 Seconds (9.0-12.0) H 02/06/23 16:42 INR 1.2 (0.9-1.1) H 02/06/23 16:42 APTT 26.9 Seconds (21.0-31.0) 02/06/23 16:42 PTT Ratio 1.0 02/06/23 16:42 Sodium 136 mmol/L (136-145) 02/07/23 05:24 Potassium 3.5 mmol/L (3.5-5.1) 02/07/23 05:24 Chloride 104 mmol/L (98-107) 02/07/23 05:24 Carbon Dioxide 24 mmol/L (21-32) 02/07/23 05:24 Anion Gap 8 (3-11) 02/07/23 05:24 BUN 21 mg/dl (6-23) 02/07/23 05:24 Creatinine 0.91 mg/dl (0.6-1.4) 02/07/23 05:24 Est Cr Clr Drug Dosing 65.8 ml/min 02/07/23 05:24 Est GFR ( Amer) 93.9 ml/min 02/07/23 05:24 Est GFR (Non-Af Amer) 81.0 ml/min 02/07/23 05:24 BUN/Creatinine Ratio 23.1 (10-20) H 02/07/23 05:24 Glucose 90 mg/dl (70-99(Fasting)) 02/07/23 05:24 Lactate 2.4 mmol/L (0.4-2.0) H* 02/06/23 18:52 Calcium 8.2 mg/dl (8.6-10.3) L 02/07/23 05:24 Magnesium 1.7 mg/dl (1.7-2.4) 02/07/23 05:24 Total Bilirubin 1.0 mg/dl (0.2-1.0) 02/06/23 16:42 AST 31 U/L (13-39) 02/06/23 16:42 ALT 16 U/L (7-52) 02/06/23 16:42 Alkaline Phosphatase 283 U/L (34-104) H 02/06/23 16:42 Troponin I High Sens 12.0 pg/ml (0-20) 02/06/23 16:42 Total Protein 6.0 gm/dl (6.0-8.3) 02/06/23 16:42 Albumin 2.9 gm/dl (3.4-5.0) L 02/06/23 16:42 Globulin 3.1 gm/dl (2.5-4.0) 02/06/23 16:42 Albumin/Globulin Ratio 0.9 (0.9-2) 02/06/23 16:42 Procalcitonin 0.28 ng/ml (0-0.5) 02/06/23 16:42 Urine Color Yellow 02/07/23 03:36 Urine Appearance Clear (Clear) 02/07/23 03:36 Urine pH 8.0 (4.5-7.5) H 02/07/23 03:36 Ur Specific [place] > 1.045 (1.000-1.030) H 02/07/23 03:36 Urine Protein Negative (Negative) 02/07/23 03:36 Urine Glucose (UA) Negative (Negative) 02/07/23 03:36 Urine Ketones Trace (Negative) H 02/07/23 03:36 Urine Blood Negative (Negative) 02/07/23 03:36 Urine Nitrite Negative (Negative) 02/07/23 03:36 Urine Bilirubin Negative (Negative) 02/07/23 03:36 Urine Urobilinogen Negative (Negative) 02/07/23 03:36 Ur Leukocyte Esterase Negative (Negative) 02/07/23 03:36 Impressions Chest X-Ray 02/06/23 15:51 XR chest 1V not portable HISTORY: Sepsis COMPARISON: None. FINDINGS: No pneumothorax. There are low lung volumes. There is a small right pleural effusion. The right Port-A-Cath runs in the distal SVC. The cardiac silhouette is normal in size. There is mild central pulmonary vascular congestion without overt edema. No focal lung consolidations to suggest pneumonia. Right basilar linear densities favor subsegmental atelectasis. IMPRESSION: 1. Low lung volumes. 2. Small right pleural effusion. 3. Mild pulmonary vascular congestion without overt edema. ACT 112: Negative or not required by law. Electronically signed by: Clarke Garcia M.D. 02/06/2023 4:34 PM Abdomen/Pelvis CT 02/06/23 17:28 CT SCAN OF THE ABDOMEN AND PELVIS WITH IV CONTRAST CLINICAL HISTORY: Generalized abdominal pain. Bloating. Nausea. Cancer history. COMPARISON STUDY: Abdominal ultrasound dated 02/06/2023. TECHNIQUE: Following the IV administration of 94 cc of Optiray 320, CT scan of the abdomen and pelvis is performed from the lung bases to the proximal femora. Images are reviewed in the axial, sagittal, and coronal planes. IV contrast was administered without complication. A dose lowering technique was utilized adhering to the principles of ALARA. CT DOSE: 1301.41 mGy.cm FINDINGS: Lung bases: The tip of a central venous infusion port terminates within the right atrium. The heart is normal in size and without pericardial effusion. There are coronary artery calcifications. There are small pleural effusions, right larger than left with dependent atelectasis. No airspace consolidation is identified typical for pneumonia. There is a small hiatal hernia. Liver: The contrast-enhanced liver is enlarged, measuring 22 cm in length. There is no intrahepatic biliary ductal dilatation. The hepatic veins and portal veins are patent. An approximately 20 cm complex low-attenuation/cystic lesion largely replaces the right lobe of the liver. Numerous additional low-attenuation/cystic lesions are seen throughout the left lobe Gallbladder: Unremarkable. Spleen: Normal in size and attenuation. Pancreas: Unremarkable. Adrenal glands: Unremarkable. Kidneys: The contrast enhanced kidneys are normal in size and without hydronephrosis. The kidneys enhance symmetrically. There is a 2 mm nonobstructing right renal calculus. No left renal calculi are identified on this contrast-enhanced examination. A 1.4 cm cyst is noted in the left upper pole. A 1.4 cm indeterminate cortical hypodensity is seen in the lower pole right kidney on image #205. Abdominal vasculature: The abdominal aorta is normal in course and caliber. Deep venous thrombosis is identified in the right common femoral and superficial femoral veins. Bowel: There is no bowel obstruction. The appendix is normal as visualized. Peritoneum: There is a moderate to large volume of abdominopelvic ascites. No intraperitoneal free air is seen. Question soft tissue implants along the transverse colon on axial image #189. Lymphadenopathy: None. Pelvic viscera: The prostate gland is enlarged and heterogeneous. The bladder wall is thickened/ventilated indicating chronic outlet obstruction. Skeletal structures: The skeletal structures are osteopenic. There is mild lumbosacral spondylosis. No lytic or blastic lesions are seen. Soft tissues: There is anasarca of the body wall. IMPRESSION: 1. Deep venous thrombosis is seen within the right common femoral and superficial femoral veins. 2. Small pleural effusions, right larger than left. 3. There is a moderate to large volume of abdominopelvic ascites as well as anasarca of the body wall. 4. An approximately 20 cm low-attenuation mass/cystic lesion largely replaces the right lobe of liver. Numerous additional low-attenuation/cystic lesions are seen throughout the left lobe. Metastatic disease is not excluded. Correlate with the oncological history and any prior outside imaging studies. 5. Question soft tissue implants along the transverse colon which could represent peritoneal carcinomatosis. Again, correlate with the oncological history. 6. Punctate nonobstructing right renal calyx was. 7. An indeterminate 14 mm lesion is seen in the lower pole of the right kidney. This could represent a complex cyst or potentially a renal neoplasm. Correlate with any prior outside imaging studies. 8. Additional findings as above. ACT 112: Negative or not required by law. Electronically signed by: Power Berrios M.D. 02/06/2023 7:35 PM Venous Doppler Study 02/06/23 17:28 ULTRASOUND BILATERAL LOWER EXTREMITY VENOUS CLINICAL HISTORY: Lower extremity edema COMPARISON STUDY: No priors. TECHNIQUE: Real-time, grayscale, and color Doppler sonography of the deep veins of the right and left lower extremity was performed from the inguinal crease to the calf. Compression and augmentation were utilized. FINDINGS: Right lower extremity: Nonocclusive deep venous thrombosis is seen in the common femoral vein. Occlusive deep venous thrombosis is seen throughout the superficial femoral vein. Nonocclusive thrombus is seen within the popliteal vein. There is likely nonocclusive superficial thrombus within the great saphenous vein near the junction with the common femoral vein. The visualized calf veins are appeared patent. Left lower extremity: There is no sonographic evidence of deep venous thrombosis in the left lower extremity. The common femoral, superficial femoral, and popliteal veins are patent and normally compressible. The greater saphenous vein and the profunda femoris vein at the junction with the common femoral vein are clear. The visualized calf veins are patent. IMPRESSION: 1. Extensive right lower extremity deep venous thrombosis as above. 2. There is no sonographic evidence of left lower extremity deep venous thrombosis. ACT 112: Negative or not required by law. Electronically signed by: Power Berrios M.D. 02/06/2023 9:47 PM
[2023-02-07] MEDS ORDERED: ENOXAPARIN 1 MG/KG SQ SCH (20:00)
[2023-02-07] MEDS: ENOXAPARIN 80 MG/0.8 ML SYR SQ SCH (20:55)
[2023-02-07] MEDS: MIRTAZAPINE TAB 15 MG TAB PO SCH (21:36)
[2023-02-08 06:02] LABS: Basophils # (auto) 0.04 K/uL (0.00-0.20); Basophils % (auto) 0.6 %; Eosinophils # (auto) 0.07 K/uL (0.00-0.50); Eosinophils % (auto) 1.1 %; Hematocrit (blood only) 28.9 % (42.0-52.0); Immature Granulocytes # (auto) 0.09 K/uL (0.01-0.20); Immature Granulocytes % (auto) 1.4 %; Lymphocytes # (auto) 1.68 K/uL (1.20-3.40); Lymphocytes % (auto) 26.4 %; Mean Corpuscular Hgb Conc 34.6 g/dL (32.0-36.0); Mean Platelet Volume 9.2 fL (9.4-12.4); Monocytes # (auto) 1.62 K/uL (0.11-0.59); Monocytes % (auto) 25.4 %; Neutrophils # (auto) 2.87 K/uL (1.40-6.50); Neutrophils % (auto) 45.1 %; Nucleated RBC # (auto) 0.02 K/uL (0.00-0.12); Nucleated RBC % (auto) 0.3 %; Platelet Count 163 K/uL (130-400); RDW Coefficient of Variation 17.7 % (11.5-14.5); RDW Standard Deviation 68.1 fL (36.4-46.3); Red Blood Count 2.78 M/uL (4.70-6.10); White Blood Count 6.37 K/ul (4.8-10.8)
[2023-02-08 06:08] LABS: Albumin Globulin Ratio 0.9 (0.9-2); Albumin Level 2.3 gm/dl (3.4-5.0); BUN Creatinine Ratio 23.8 (10-20); Bilirubin,Total 0.8 mg/dl (0.2-1.0); Creatinine Clr Calc Pharmacy 59.3 ml/min; Est GFR (African American) 82.8 ml/min; Est GFR (Non-African American) 71.4 ml/min; Globulin 2.6 gm/dl (2.5-4.0); Potassium 3.6 mmol/L (3.5-5.1); Total Protein 4.9 gm/dl (6.0-8.3)
--- NOTE | 2023-02-08 07:10 | Electrocardiogram Report ---
Test Reason : Blood Pressure : / mmHG Vent. Rate : 100 BPM Atrial Rate : 100 BPM P-R Int : 140 ms QRS Dur : 062 ms QT Int : 352 ms P-R-T Axes : 029 -17 038 degrees QTc Int : 454 ms Poor data quality, interpretation may be adversely affected Normal sinus rhythm Low voltage QRS Possible Lateral infarct , age undetermined Abnormal ECG No previous ECGs available Confirmed by Curtis Chiu ([id number]) on 02/08/2023 7:09:24 AM Referred By: REFERRED SELF Confirmed By:Curtis Chiu
[2023-02-08] MEDS: ENOXAPARIN 80 MG/0.8 ML SYR SQ SCH ×2 (08:54→20:19)
[2023-02-08] MEDS: busPIRone 5 MG TAB PO SCH ×3 (08:55→20:20)
[2023-02-08] MEDS: SPIRONOLACTONE 25 MG TAB PO SCH (08:56)
[2023-02-08] MEDS: ESCITALOPRAM OXALATE 10 MG TAB PO SCH (08:56)
--- NOTE | 2023-02-08 12:41 | Hospitalist Progress Note ---
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 Reports of gradual abdominal distention. Was sent to the ED for therapeutic paracentesis CT abdomen and pelvis personally reviewed; moderate to large volume abdominal pelvic ascites. 20 cm mass/cystic lesion replaces the right lobe of liver. Questionable peritoneal carcinomatosis. Small pleural effusions, right larger than left. Discussed with radiology; paracentesis cannot be done on weekends. Possibly on Thursday. We will switch over his Eliquis to subcu Lovenox. Hold Lovenox on the day of the paracentesis Continue home spironolactone Acute right lower extremity DVT Extensive right lower extremity DVT on venous duplex. Was started on 10 mg twice daily of Eliquis for a week; now on 5 mg once a day Hold Eliquis for paracentesis on Thursday. Started on Lovenox. Generalized anxiety disorder Home meds Iron deficiency anemia Follow labs DVT prophylaxis On Lovenox Disposition med/telemetry Full code Discussed with over the phone on February 07, 2023. Answered questi ons/queries. Please note the above document was generated using voice recognition software. It may contain grammatical, syntax or spelling errors. Any formal questions or concerns about the content, text or information contained within the body of this dictation should be directly addressed to the provider for clarification Admission and Anticipated Discharge Date Admission Date: February 07, 2023 Subjective Patient seen and examined at bedside. He is lying in the bed comfortably; not in distress. He is frustrated being in the hospital. He is looking forward to paracentesis tomorrow a.m. Review of Systems Review of Systems: All systems reviewed & are unremarkable except as noted in Subjective Physical Exam Physical Exam: Constitutional: Awake, alert orient x3; not in distress. Respiratory: normal respiratory effort, lungs clear to auscultation, no wheeze, rales, rhonchi. Normal insp/exp effort, no accessory muscle use Cardiovascular: RRR, no murmur, no edema Vessels: no JVD or carotid bruit Chest: normal inspection of chest Abdomen: Distended, nontender. Bowel sounds present. Musculoskeletal: no cyanosis or clubbing, extremities motor strength 5/5. Right leg swollen compared to left. Skin: no rashes, warm and dry normal turgor Neurologic: PERRL, EOMI, accommodation nl, no face palsy, no dysarthria CN's II- XI intact bilaterally and moves all extremities Psychiatric: A+Ox3, euthymic affect Results & Data Results & Data Vital Signs (Past 12 Hours) Vital Signs Temp Pulse Resp BP Pulse Ox O2 Del Method 02/08/23 07:13 36.9 C 68 18 105/74 94 Room Air 02/08/23 04:00 36.9 C 74 18 125/79 94 Room Air Laboratory Results Laboratory Results WBC 6.37 K/ul (4.8-10.8) 02/08/23 05:34 RBC 2.78 M/uL (4.70-6.10) L 02/08/23 05:34 Hgb 10.0 g/dl (14.0-18.0) L 02/08/23 05:34 Hct 28.9 % (42.0-52.0) L 02/08/23 05:34 MCV 104.0 fL (80.0-100.0) H 02/08/23 05:34 MCH 36.0 pg (25.0-34.0) H 02/08/23 05:34 MCHC 34.6 g/dL (32.0-36.0) 02/08/23 05:34 RDW Std Deviation 68.1 fL (36.4-46.3) H 02/08/23 05:34 RDW Coeff of Mayra 17.7 % (11.5-14.5) H 02/08/23 05:34 Plt Count 163 K/uL (130-400) 02/08/23 05:34 MPV 9.2 fL (9.4-12.4) L 02/08/23 05:34 Immature Gran % (Auto) 1.4 % 02/08/23 05:34 Neut % (Auto) 45.1 % 02/08/23 05:34 Lymph % (Auto) 26.4 % 02/08/23 05:34 Coleman % (Auto) 25.4 % 02/08/23 05:34 Eos % (Auto) 1.1 % 02/08/23 05:34 Baso % (Auto) 0.6 % 02/08/23 05:34 Neut # (Auto) 2.87 K/uL (1.40-6.50) 02/08/23 05:34 Lymph # (Auto) 1.68 K/uL (1.20-3.40) 02/08/23 05:34 Coleman # (Auto) 1.62 K/uL (0.11-0.59) H 02/08/23 05:34 Eos # (Auto) 0.07 K/uL (0.00-0.50) 02/08/23 05:34 Baso # (Auto) 0.04 K/uL (0.00-0.20) 02/08/23 05:34 Immature Gran # (Auto) 0.09 K/uL (0.01-0.20) 02/08/23 05:34 Absolute Nucleated RBC 0.02 K/uL (0.00-0.12) 02/08/23 05:34 Nucleated RBC % (auto) 0.3 % 02/08/23 05:34 PT 13.5 Seconds (9.0-12.0) H 02/06/23 16:42 INR 1.2 (0.9-1.1) H 02/06/23 16:42 APTT 26.9 Seconds (21.0-31.0) 02/06/23 16:42 PTT Ratio 1.0 02/06/23 16:42 Sodium 137 mmol/L (136-145) 02/08/23 05:34 Potassium 3.6 mmol/L (3.5-5.1) 02/08/23 05:34 Chloride 104 mmol/L (98-107) 02/08/23 05:34 Carbon Dioxide 25 mmol/L (21-32) 02/08/23 05:34 Anion Gap 8 (3-11) 02/08/23 05:34 BUN 24 mg/dl (6-23) H 02/08/23 05:34 Creatinine 1.01 mg/dl (0.6-1.4) 02/08/23 05:34 Est Cr Clr Drug Dosing 59.3 ml/min 02/08/23 05:34 Est GFR ( Amer) 82.8 ml/min 02/08/23 05:34 Est GFR (Non-Af Amer) 71.4 ml/min 02/08/23 05:34 BUN/Creatinine Ratio 23.8 (10-20) H 02/08/23 05:34 Glucose 81 mg/dl (70-99(Fasting)) 02/08/23 05:34 Lactate 2.4 mmol/L (0.4-2.0) H* 02/06/23 18:52 Calcium 8.0 mg/dl (8.6-10.3) L 02/08/23 05:34 Magnesium 1.7 mg/dl (1.7-2.4) 02/07/23 05:24 Total Bilirubin 0.8 mg/dl (0.2-1.0) 02/08/23 05:34 AST 26 U/L (13-39) 02/08/23 05:34 ALT 13 U/L (7-52) 02/08/23 05:34 Alkaline Phosphatase 239 U/L (34-104) H 02/08/23 05:34 Troponin I High Sens 12.0 pg/ml (0-20) 02/06/23 16:42 Total Protein 4.9 gm/dl (6.0-8.3) L D 02/08/23 05:34 Albumin 2.3 gm/dl (3.4-5.0) L 02/08/23 05:34 Globulin 2.6 gm/dl (2.5-4.0) 02/08/23 05:34 Albumin/Globulin Ratio 0.9 (0.9-2) 02/08/23 05:34 Procalcitonin 0.28 ng/ml (0-0.5) 02/06/23 16:42 Urine Color Yellow 02/07/23 03:36 Urine Appearance Clear (Clear) 02/07/23 03:36 Urine pH 8.0 (4.5-7.5) H 02/07/23 03:36 Ur Specific Elida > 1.045 (1.000-1.030) H 02/07/23 03:36 Urine Protein Negative (Negative) 02/07/23 03:36 Urine Glucose (UA) Negative (Negative) 02/07/23 03:36 Urine Ketones Trace (Negative) H 02/07/23 03:36 Urine Blood Negative (Negative) 02/07/23 03:36 Urine Nitrite Negative (Negative) 02/07/23 03:36 Urine Bilirubin Negative (Negative) 02/07/23 03:36 Urine Urobilinogen Negative (Negative) 02/07/23 03:36 Ur Leukocyte Esterase Negative (Negative) 02/07/23 03:36 Impressions Chest X-Ray 02/06/23 15:51 XR chest 1V not portable HISTORY: Sepsis COMPARISON: None. FINDINGS: No pneumothorax. There are low lung volumes. There is a small right pleural effusion. The right Port-A-Cath runs in the distal SVC. The cardiac silhouette is normal in size. There is mild central pulmonary vascular congestion without overt edema. No focal lung consolidations to suggest pneumonia. Right basilar linear densities favor subsegmental atelectasis. IMPRESSION: 1. Low lung volumes. 2. Small right pleural effusion. 3. Mild pulmonary vascular congestion without overt edema. ACT 112: Negative or not required by law. Electronically signed by: Clarke Garcia M.D. 02/06/2023 4:34 PM Abdomen/Pelvis CT 02/06/23 17:28 CT SCAN OF THE ABDOMEN AND PELVIS WITH IV CONTRAST CLINICAL HISTORY: Generalized abdominal pain. Bloating. Nausea. Cancer history. COMPARISON STUDY: Abdominal ultrasound dated 02/06/2023. TECHNIQUE: Following the IV administration of 94 cc of Optiray 320, CT scan of the abdomen and pelvis is performed from the lung bases to the proximal femora. Images are reviewed in the axial, sagittal, and coronal planes. IV contrast was administered without complication. A dose lowering technique was utilized adhering to the principles of ALARA. CT DOSE: 1301.41 mGy.cm FINDINGS: Lung bases: The tip of a central venous infusion port terminates within the right atrium. The heart is normal in size and without pericardial effusion. There are coronary artery calcifications. There are small pleural effusions, right larger than left with dependent atelectasis. No airspace consolidation is identified typical for pneumonia. There is a small hiatal hernia. Liver: The contrast-enhanced liver is enlarged, measuring 22 cm in length. There is no intrahepatic biliary ductal dilatation. The hepatic veins and portal veins are patent. An approximately 20 cm complex low-attenuation/cystic lesion largely replaces the right lobe of the liver. Numerous additional low-attenuation/cystic lesions are seen throughout the left lobe Gallbladder: Unremarkable. Spleen: Normal in size and attenuation. Pancreas: Unremarkable. Adrenal glands: Unremarkable. Kidneys: The contrast enhanced kidneys are normal in size and without hyd ronephrosis. The kidneys enhance symmetrically. There is a 2 mm nonobstructing right renal calculus. No left renal calculi are identified on this contrast- enhanced examination. A 1.4 cm cyst is noted in the left upper pole. A 1.4 cm indeterminate cortical hypodensity is seen in the lower pole right kidney on image #205. Abdominal vasculature: The abdominal aorta is normal in course and caliber. Deep venous thrombosis is identified in the right common femoral and superficial femoral veins. Bowel: There is no bowel obstruction. The appendix is normal as visualized. Peritoneum: There is a moderate to large volume of abdominopelvic ascites. No intraperitoneal free air is seen. Question soft tissue implants along the transverse colon on axial image #189. Lymphadenopathy: None. Pelvic viscera: The prostate gland is enlarged and heterogeneous. The bladder wall is thickened/ventilated indicating chronic outlet obstruction. Skeletal structures: The skeletal structures are osteopenic. There is mild lumbosacral spondylosis. No lytic or blastic lesions are seen. Soft tissues: There is anasarca of the body wall. IMPRESSION: 1. Deep venous thrombosis is seen within the right common femoral and superficial femoral veins. 2. Small pleural effusions, right larger than left. 3. There is a moderate to large volume of abdominopelvic ascites as well as anasarca of the body wall. 4. An approximately 20 cm low-attenuation mass/cystic lesion largely replaces the right lobe of liver. Numerous additional low-attenuation/cystic lesions are seen throughout the left lobe. Metastatic disease is not excluded. Correlate with the oncological history and any prior outside imaging studies. 5. Question soft tissue implants along the transverse colon which could represent peritoneal carcinomatosis. Again, correlate with the oncological history. 6. Punctate nonobstructing right renal calyx was. 7. An indeterminate 14 mm lesion is seen in the lower pole of the right kidney. This could represent a complex cyst or potentially a renal neoplasm. Correlate with any prior outside imaging studies. 8. Additional findings as above. ACT 112: Negative or not required by law. Electronically signed by: Power Berrios M.D. 02/06/2023 7:35 PM Venous Doppler Study 02/06/23 17:28 ULTRASOUND BILATERAL LOWER EXTREMITY VENOUS CLINICAL HISTORY: Lower extremity edema COMPARISON STUDY: No priors. TECHNIQUE: Real-time, grayscale, and color Doppler sonography of the deep veins of the right and left lower extremity was performed from the inguinal crease to the calf. Compression and augmentation were utilized. FINDINGS: Right lower extremity: Nonocclusive deep venous thrombosis is seen in the common femoral vein. Occlusive deep venous thrombosis is seen throughout the superficial femoral vein. Nonocclusive thrombus is seen within the popliteal vein. There is likely nonocclusive superficial thrombus within the great saphenous vein near the junction with the common femoral vein. The visualized calf veins are appeared patent. Left lower extremity: There is no sonographic evidence of deep venous thrombosis in the left lower extremity. The common femoral, superficial femoral, and popliteal veins are patent and normally compressible. The greater saphenous vein and the profunda femoris vein at the junction with the common femoral vein are clear. The visualized calf veins are patent. IMPRESSION: 1. Extensive right lower extremity deep venous thrombosis as above. 2. There is no sonographic evidence of left lower extremity deep venous thrombosis. ACT 112: Negative or not required by law. Electronically signed by: Power Berrios M.D. 02/06/2023 9:47 PM
[2023-02-08] MEDS: MIRTAZAPINE TAB 15 MG TAB PO SCH (20:20)
[2023-02-09 06:25] LABS: Basophils # (auto) 0.03 K/uL (0.00-0.20); Basophils % (auto) 0.5 %; Eosinophils # (auto) 0.04 K/uL (0.00-0.50); Eosinophils % (auto) 0.7 %; Hematocrit (blood only) 28.5 % (42.0-52.0); Immature Granulocytes # (auto) 0.03 K/uL (0.01-0.20); Immature Granulocytes % (auto) 0.5 %; Lymphocytes % (auto) 21.7 %; Mean Corpuscular Hemoglobin 36.6 pg (25.0-34.0); Mean Corpuscular Hgb Conc 35.1 g/dL (32.0-36.0); Mean Corpuscular Volume 104.4 fL (80.0-100.0); Mean Platelet Volume 9.7 fL (9.4-12.4); Monocytes % (auto) 27.1 %; Neutrophils # (auto) 2.74 K/uL (1.40-6.50); Neutrophils % (auto) 49.5 %; Platelet Count 142 K/uL (130-400); RDW Coefficient of Variation 18.1 % (11.5-14.5); Red Blood Count 2.73 M/uL (4.70-6.10); White Blood Count 5.54 K/ul (4.8-10.8)
[2023-02-09 06:42] LABS: Albumin Globulin Ratio 0.9 (0.9-2); Albumin Level 2.3 gm/dl (3.4-5.0); Bilirubin,Total 0.7 mg/dl (0.2-1.0); Calcium 7.7 mg/dl (8.6-10.3); Creatinine Clr Calc Pharmacy 65.1 ml/min; Est GFR (African American) 92.7 ml/min; Est GFR (Non-African American) 79.9 ml/min; Globulin 2.5 gm/dl (2.5-4.0); Potassium 3.3 mmol/L (3.5-5.1); Total Protein 4.8 gm/dl (6.0-8.3)
[2023-02-09] MEDS: ESCITALOPRAM OXALATE 10 MG TAB PO SCH ×2 (07:57→19:35)
[2023-02-09] MEDS: busPIRone 5 MG TAB PO SCH ×3 (07:57→19:34)
[2023-02-09] MEDS: ENOXAPARIN 80 MG/0.8 ML SYR SQ SCH ×2 (07:58→19:36)
[2023-02-09] MEDS: SPIRONOLACTONE 25 MG TAB PO SCH (07:58)
--- NOTE | 2023-02-09 14:46 | Hospitalist Progress Note ---
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 Reports of gradual abdominal distention. Was sent to the ED for therapeutic paracentesis CT abdomen and pelvis personally reviewed; moderate to large volume abdominal pelvic ascites. 20 cm mass/cystic lesion replaces the right lobe of liver. Questionable peritoneal carcinomatosis. Small pleural effusions, right larger than left. Status post paracentesis on 02/09 Await cell count with differential and other studies Also need to follow-up on cytology. Resume Lovenox therapeutic dose Acute right lower extremity DVT Extensive right lower extremity DVT on venous duplex. Was started on 10 mg twice daily of Eliquis for a week; now on 5 mg once a day Hold Eliquis for paracentesis on Thursday. On Lovenox therapeutic dose Generalized anxiety disorder Home meds Iron deficiency anemia Follow labs DVT prophylaxis On Lovenox Disposition med/telemetry Full code Discussed with at bedside today.. Answered questions/queries. Time spent evaluating patient, direct bedside care, chart review, placing orders, interpretation of diagnostic studies, discussion with consultants, patient, and family members, as well as other required patient management activities is 60 minutes Please note the above document was generated using voice recognition software. It may contain grammatical, syntax or spelling errors. Any formal questions or concerns about the content, text or information contained within the body of this dictation should be directly addressed to the provider for clarification Admission and Anticipated Discharge Date Admission Date: February 07, 2023 Subjective Patient seen and examined in the morning and in afternoon. Underwent paracentesis without any issues. Review of Systems Review of Systems: All systems reviewed & are unremarkable except as noted in Subjective Physical Exam Physical Exam: Constitutional: Awake, alert orient x3; not in distress. Respiratory: normal respiratory effort, lungs clear to auscultation, no wheeze, rales, rhonchi. Normal insp/exp effort, no accessory muscle use Cardiovascular: RRR, no murmur, no edema Vessels: no JVD or carotid bruit Chest: normal inspection of chest Abdomen: Less distended compared to yesterday. Nontender. Musculoskeletal: no cyanosis or clubbing, extremities motor strength 5/5. Right leg swollen compared to left. Skin: no rashes, warm and dry normal turgor Neurologic: PERRL, EOMI, accommodation nl, no face palsy, no dysarthria CN's II- XI intact bilaterally and moves all extremities Psychiatric: A+Ox3, euthymic affect Results & Data Results & Data Vital Signs (Past 12 Hours) Vital Signs Temp Pulse Resp BP Pulse Ox O2 Del Method 02/09/23 08:27 Room Air 02/09/23 07:36 36.8 C 56 L 16 132/92 95 Room Air Laboratory Results Laboratory Results WBC 5.54 K/ul (4.8-10.8) 02/09/23 05:57 RBC 2.73 M/uL (4.70-6.10) L 02/09/23 05:57 Hgb 10.0 g/dl (14.0-18.0) L 02/09/23 05:57 Hct 28.5 % (42.0-52.0) L 02/09/23 05:57 MCV 104.4 fL (80.0-100.0) H 02/09/23 05:57 MCH 36.6 pg (25.0-34.0) H 02/09/23 05:57 MCHC 35.1 g/dL (32.0-36.0) 02/09/23 05:57 RDW Std Deviation 69.0 fL (36.4-46.3) H 02/09/23 05:57 RDW Coeff of Mayra 18.1 % (11.5-14.5) H 02/09/23 05:57 Plt Count 142 K/uL (130-400) 02/09/23 05:57 MPV 9.7 fL (9.4-12.4) 02/09/23 05:57 Immature Gran % (Auto) 0.5 % 02/09/23 05:57 Neut % (Auto) 49.5 % 02/09/23 05:57 Lymph % (Auto) 21.7 % 02/09/23 05:57 [place] % (Auto) 27.1 % 02/09/23 05:57 Eos % (Auto) 0.7 % 02/09/23 05:57 Baso % (Auto) 0.5 % 02/09/23 05:57 Neut # (Auto) 2.74 K/uL (1.40-6.50) 02/09/23 05:57 Lymph # (Auto) 1.20 K/uL (1.20-3.40) 02/09/23 05:57 [place] # (Auto) 1.50 K/uL (0.11-0.59) H 02/09/23 05:57 Eos # (Auto) 0.04 K/uL (0.00-0.50) 02/09/23 05:57 Baso # (Auto) 0.03 K/uL (0.00-0.20) 02/09/23 05:57 Immature Gran # (Auto) 0.03 K/uL (0.01-0.20) 02/09/23 05:57 Absolute Nucleated RBC 0.02 K/uL (0.00-0.12) 02/08/23 05:34 Nucleated RBC % (auto) 0.3 % 02/08/23 05:34 PT 13.5 Seconds (9.0-12.0) H 02/06/23 16:42 INR 1.2 (0.9-1.1) H 02/06/23 16:42 APTT 26.9 Seconds (21.0-31.0) 02/06/23 16:42 PTT Ratio 1.0 02/06/23 16:42 Sodium 137 mmol/L (136-145) 02/09/23 05:57 Potassium 3.3 mmol/L (3.5-5.1) L 02/09/23 05:57 Chloride 105 mmol/L (98-107) 02/09/23 05:57 Carbon Dioxide 26 mmol/L (21-32) 02/09/23 05:57 Anion Gap 6 (3-11) 02/09/23 05:57 BUN 23 mg/dl (6-23) 02/09/23 05:57 Creatinine 0.92 mg/dl (0.6-1.4) 02/09/23 05:57 Est Cr Clr Drug Dosing 65.1 ml/min 02/09/23 05:57 Est GFR ( Amer) 92.7 ml/min 02/09/23 05:57 Est GFR (Non-Af Amer) 79.9 ml/min 02/09/23 05:57 BUN/Creatinine Ratio 25.0 (10-20) H 02/09/23 05:57 Glucose 106 mg/dl (70-99(Fasting)) H 02/09/23 05:57 Lactate 2.4 mmol/L (0.4-2.0) H* 02/06/23 18:52 Calcium 7.7 mg/dl (8.6-10.3) L 02/09/23 05:57 Magnesium 1.7 mg/dl (1.7-2.4) 02/07/23 05:24 Total Bilirubin 0.7 mg/dl (0.2-1.0) 02/09/23 05:57 AST 27 U/L (13-39) 02/09/23 05:57 ALT 13 U/L (7-52) 02/09/23 05:57 Alkaline Phosphatase 240 U/L (34-104) H 02/09/23 05:57 Troponin I High Sens 12.0 pg/ml (0-20) 02/06/23 16:42 Total Protein 4.8 gm/dl (6.0-8.3) L 02/09/23 05:57 Albumin 2.3 gm/dl (3.4-5.0) L 02/09/23 05:57 Globulin 2.5 gm/dl (2.5-4.0) 02/09/23 05:57 Albumin/Globulin Ratio 0.9 (0.9-2) 02/09/23 05:57 Procalcitonin 0.28 ng/ml (0-0.5) 02/06/23 16:42 Urine Color Yellow 02/07/23 03:36 Urine Appearance Clear (Clear) 02/07/23 03:36 Urine pH 8.0 (4.5-7.5) H 02/07/23 03:36 Ur Specific Blanket > 1.045 (1.000-1.030) H 02/07/23 03:36 Urine Protein Negative (Negative) 02/07/23 03:36 Urine Glucose (UA) Negative (Negative) 02/07/23 03:36 Urine Ketones Trace (Negative) H 02/07/23 03:36 Urine Blood Negative (Negative) 02/07/23 03:36 Urine Nitrite Negative (Negative) 02/07/23 03:36 Urine Bilirubin Negative (Negative) 02/07/23 03:36 Urine Urobilinogen Negative (Negative) 02/07/23 03:36 Ur Leukocyte Esterase Negative (Negative) 02/07/23 03:36 Fluid Comment 02/09/23 Unknown Peritoneal Tot Protein < 3.0 gm/dl 02/09/23 Unknown Peritoneal Albumin < 1.5 gm/dl 02/09/23 Unknown Peritoneal LDH 60 U/L 02/09/23 Unknown Peritoneal Glucose 121 mg/dl 02/09/23 Unknown Impressions Chest X-Ray 02/06/23 15:51 XR chest 1V not portable HISTORY: Sepsis COMPARISON: None. FINDINGS: No pneumothorax. There are low lung volumes. There is a small right pleural effusion. The right Port-A-Cath runs in the distal SVC. The cardiac silhouette is normal in size. There is mild central pulmonary vascular congestion without overt edema. No focal lung consolidations to suggest pneumonia. Right basilar linear densities favor subsegmental atelectasis. IMPRESSION: 1. Low lung volumes. 2. Small right pleural effusion. 3. Mild pulmonary vascular congestion without overt edema. ACT 112: Negative or not required by law. Electronically signed by: Clarke Garcia M.D. 02/06/2023 4:34 PM Abdomen/Pelvis CT 02/06/23 17:28 CT SCAN OF THE ABDOMEN AND PELVIS WITH IV CONTRAST CLINICAL HISTORY: Generalized abdominal pain. Bloating. Nausea. Cancer history. COMPARISON STUDY: Abdominal ultrasound dated 02/06/2023. TECHNIQUE: Following the IV administration of 94 cc of Optiray 320, CT scan of the abdomen and pelvis is performed from the lung bases to the proximal femora. Images are reviewed in the axial, sagittal, and coronal planes. IV contrast was administered without complication. A dose lowering technique was utilized adhering to the principles of ALARA. CT DOSE: 1301.41 mGy.cm FINDINGS: Lung bases: The tip of a central venous infusion port terminates within the right atrium. The heart is normal in size and without pericardial effusion. There are coronary artery calcifications. There are small pleural effusions, right larger than left with dependent atelectasis. No airspace consolidation is identified typical for pneumonia. There is a small hiatal hernia. Liver: The contrast-enhanced liver is enlarged, measuring 22 cm in length. There is no intrahepatic biliary ductal dilatation. The hepatic veins and portal veins are patent. An approximately 20 cm complex low-attenuation/cystic lesion largely replaces the right lobe of the liver. Numerous additional low-attenuation/cystic lesions are seen throughout the left lobe Gallbladder: Unremarkable. Spleen: Normal in size and attenuation. Pancreas: Unremarkable. Adrenal glands: Unremarkable. Kidneys: The contrast enhanced kidneys are normal in size and without hydronephrosis. The kidneys enhance symmetrically. There is a 2 mm nonobstru cting right renal calculus. No left renal calculi are identified on this contrast-enhanced examination. A 1.4 cm cyst is noted in the left upper pole. A 1.4 cm indeterminate cortical hypodensity is seen in the lower pole right kidney on image #205. Abdominal vasculature: The abdominal aorta is normal in course and caliber. Deep venous thrombosis is identified in the right common femoral and superficial femoral veins. Bowel: There is no bowel obstruction. The appendix is normal as visualized. Peritoneum: There is a moderate to large volume of abdominopelvic ascites. No intraperitoneal free air is seen. Question soft tissue implants along the transverse colon on axial image #189. Lymphadenopathy: None. Pelvic viscera: The prostate gland is enlarged and heterogeneous. The bladder w all is thickened/ventilated indicating chronic outlet obstruction. Skeletal structures: The skeletal structures are osteopenic. There is mild lumbosacral spondylosis. No lytic or blastic lesions are seen. Soft tissues: There is anasarca of the body wall. IMPRESSION: 1. Deep venous thrombosis is seen within the right common femoral and superficial femoral veins. 2. Small pleural effusions, right larger than left. 3. There is a moderate to large volume of abdominopelvic ascites as well as anasarca of the body wall. 4. An approximately 20 cm low-attenuation mass/cystic lesion largely replaces the right lobe of liver. Numerous additional low-attenuation/cystic lesions are seen throughout the left lobe. Metastatic disease is not excluded. Correlate with the oncological history and any prior outside imaging studies. 5. Question soft tissue implants along the transverse colon which could represent peritoneal carcinomatosis. Again, correlate with the oncological history. 6. Punctate nonobstructing right renal calyx was. 7. An indeterminate 14 mm lesion is seen in the lower pole of the right kidney. This could represent a complex cyst or potentially a renal neoplasm. Correlate with any prior outside imaging studies. 8. Additional findings as above. ACT 112: Negative or not required by law. Electronically signed by: Power Berrios M.D. 02/06/2023 7:35 PM Venous Doppler Study 02/06/23 17:28 ULTRASOUND BILATERAL LOWER EXTREMITY VENOUS CLINICAL HISTORY: Lower extremity edema COMPARISON STUDY: No priors. TECHNIQUE: Real-time, grayscale, and color Doppler sonography of the deep veins of the right and left lower extremity was performed from the inguinal crease to the calf. Compression and augmentation were utilized. FINDINGS: Right lower extremity: Nonocclusive deep venous thrombosis is seen in the common femoral vein. Occlusive deep venous thrombosis is seen throughout the superficial femoral vein. Nonocclusive thrombus is seen within the popliteal vein. There is likely nonocclusive superficial thrombus within the great saphenous vein near the junction with the common femoral vein. The visualized calf veins are appeared patent. Left lower extremity: There is no sonographic evidence of deep venous thrombosis in the left lower extremity. The common femoral, superficial femoral, and popliteal veins are patent and normally compressible. The greater saphenous vein and the profunda femoris vein at the junction with the common femoral vein are clear. The visualized calf veins are patent. IMPRESSION: 1. Extensive right lower extremity deep venous thrombosis as above. 2. There is no sonographic evidence of left lower extremity deep venous thrombosis. ACT 112: Negative or not required by law. Electronically signed by: Power Berrios M.D. 02/06/2023 9:47 PM
[2023-02-09] MEDS: ALBUMIN 25% 25 GM/100 ML VIAL IV SCH ×2 (15:43→17:22)
[2023-02-09 15:50] LABS: Albumin Peritoneal Fluid < 1.5 gm/dl
[2023-02-09 15:56] LABS: Glucose Peritoneal Fluid 121 mg/dl; LDH Peritoneal Fluid 60 U/L; Total Protein Peritoneal Fluid < 3.0 gm/dl
[2023-02-09] MEDS ORDERED: ENOXAPARIN 1 MG/KG SQ SCH (16:30)
[2023-02-09 16:42] LABS: Appearance Peritoneal Fluid Slightly Hazy; Color Peritoneal Fluid Pale Yellow; Lymphocytes, Fluid 20 %; Mono,Macrophage,Mesothelial 75 %; Neutrophils, Fluid 5 %; RBC Peritoneal Fluid Auto < 2000 /uL; WBC Peritoneal Fluid Auto 157 /ul (0-300)
--- NOTE | 2023-02-09 16:52 | Ultrasound Report ---
Ultrasound-guided paracentesis INDICATION: Ascites PROCEDURE: Procedure and risks were explained. Informed consent was obtained. A final timeout was com pleted. The right upper quadrant was prepped and draped in sterile fashion. 1% buffered lidocaine was utilized for skin anesthesia. Utilizing ultrasound guidance, a 5 [place] safety centesis catheter was advanced into the right upper quadrant pocket of ascites. Ultrasound images were obtained. 4 L of ascites fluid was removed, with 1 L sent to lab for analysis. The catheter was removed and Band-Aid applied. The patient tolerated the procedure well. Vital signs will be monitored postprocedure. IMPRESSION: Paracentesis as above. Performed, dictated, and signed by Mickey Hatch PA-C; to be co-signed by Dr. Glenroy Hamilton. Electronically signed by: Glenroy Hamilton M.D. 02/09/2023 8:53 PM
[2023-02-09] MEDS: MIRTAZAPINE TAB 15 MG TAB PO SCH (19:35)
[2023-02-10] MEDS: SPIRONOLACTONE 25 MG TAB PO SCH (07:44)
[2023-02-10] MEDS: busPIRone 5 MG TAB PO SCH (07:44)
[2023-02-10] MEDS: ENOXAPARIN 80 MG/0.8 ML SYR SQ SCH (07:45)
--- NOTE | 2023-02-10 15:34 | Discharge Summary ---
Date of Service February 10, 2023 Admission HPI Per Admitting Provider 77-year-old male with past med significant for metastatic colon cancer, iron deficiency anemia, elevated LFTs, general anxiety disorder, history of DVT, presents with increasing abdominal distention. He was placed on diuretics by heme-onc but but states did not improve much. Currently resting comfortably and hemodynamically stable. Denies any headache. No sore throat or cough. Has some acid reflux. Denies any chest pain or shortness of breath. Denies abdominal pain. States normal bowel and bladder movements. Appetite is good. Ambulates with a cane. Sometimes need assistance while ambulating. Lives with his . No fevers. Past medical history. As mentioned above Past surgical history. IR biopsy Social history. . No smoking. No alcohol. No drug use. Family history. No family history on file Admission Exam Per Admitting Provider General- Not in distress Head- atraumatic Eyes- PERRL. ENT- oropharynx clear Neck- supple, no JVD. Lungs- clear to auscultation , no wheezing or crackles. Heart- regular rhythm; no murmur, no gallop. Abdomen- normal bowel sounds, distended non tender Extremities- lower extremity edema present, no erythema seen. Neuro- alert, oriented x 3; PERRL, EOMI; no facial palsy; no dysarthria; moves extremities. Skin- warm & dry Principal Diagnosis Abdominal ascites status post paracentesis on 02/09 Stage IV colon cancer with metastasis to liver Discharge Exam Constitutional: Awake, alert orient x3; not in distress. Respiratory: normal respiratory effort, lungs clear to auscultation, no wheeze, rales, rhonchi. Normal insp/exp effort, no accessory muscle use Cardiovascular: RRR, no murmur, no edema Vessels: no JVD or carotid bruit Chest: normal inspection of chest Abdomen: Less distended compared to yesterday. Nontender. Musculoskeletal: no cyanosis or clubbing, extremities motor strength 5/5. Right leg swollen compared to left. Skin: no rashes, warm and dry normal turgor Neurologic: PERRL, EOMI, accommodation nl, no face palsy, no dysarthria CN's II- XI intact bilaterally and moves all extremities Psychiatric: A+Ox3, euthymic affect Discharge Data Allergies Allergy/AdvReac Type Severity Reaction Status Date / Time prochlorperazine AdvReac Anaphylaxis Verified 02/07/23 03:22 [From Compazine] Consultations 02/06/23 20:05 ED Decision to Admit Stat Ordered Studies 02/06/23 17:28 CT abd pelvis IV con only Stat US venous doppler LE BI Stat 02/09/23 IR paracentesis abd w/img US Routine Hospital Course (1) Abdominal ascites: 77-year-old male with past med significant for metastatic colon cancer, iron deficiency anemia, elevated LFTs, general anxiety disorder, history of DVT, presents with increasing abdominal distention Abdominal ascites Stage IV colon cancer with metastasis to liver Acute right lower extremity DVT History of stage IV colon cancer with metastasis to liver on chemotherapy. Reports of gradual abdominal distention. Was sent to the ED for therapeutic paracentesis CT abdomen and pelvis personally reviewed; moderate to large volume abdominal pelvic ascites. 20 cm mass/cystic lesion replaces the right lobe of liver. Questionable peritoneal carcinomatosis. Small pleural effusions, right larger than left. During the hospitalization, he was bridged over with Lovenox. Eliquis was stopped. Patient underwent paracentesis on 02/09 with removal of 4 L of ascitic fluid. No signs of SBP. Cytology is pending. Patient will follow-up with PCP and oncology as outpatient. Please note the above document was generated using voice recognition software. It may contain grammatical, syntax or spelling errors. Any formal questions or concerns about the content, text or information contained within the body of this dictation should be directly addressed to the provider for clarification Total Time Total Time Spent Total Time Spent (In Minutes): 40 Total Time Includes: Examination of the Patient, Discharge Planning, Medication Reconciliation, Communication With Other Providers and Other Discharge Plan Discharge Items Patient Disposition: Home - Self-Care Reason For Visit: ASCITES Discharge Diagnosis: Malignant ascites status post paracentesis Condition on Discharge: Fair Activity: Resume your previous activity Non-emergency contact: Primary Care Provider Call non-emergency contact if: you have any medication questions and your symptoms worsen Follow-up/Referrals: Suzie Robbins M.D. [Primary Care Provider] - Eli Finch CRNP [Outside Practitioners] - (Date & Time 02/10/2023 2:00 PM Provider [facility] Department Hematology/Oncology [facility] ) Diet: Regular Addtl Attending Provider Instructions: You were admitted to the hospital due to abdominal distention due to ascites. You underwent paracentesis yesterday with removal of 4 L of fluid. Start your Eliquis from tonight. Please follow-up with PCP and oncology after discharge. Pending Studies at Discharge: Yes Studies:: Ascites fluid cytology. Stand-Alone Forms: My [facility] Flux, Smoking Cessation Medications and DC Order Prescriptions: Continued buspirone 10 mg tablet 10 mg PO TID hydrochlorothiazide 25 mg tablet 25 mg PO DAILY spironolactone 50 mg tablet 50 mg PO DAILY oxycodone 5 mg tablet 5 mg PO Q4H PRN (Reason: Pain) escitalopram oxalate 10 mg tablet 10 mg PO DAILY Eliquis 5 mg tablet 5 mg PO BID Discharge Orders: Discharge Order (Routine); Ordered 02/10/23 Ordered By: Diego yL Admission Data Admit Date/Time: 02/07/23 00:07 Attending Provider: Diego Ly Admit Provider: Júnior Glasgow Primary Care Provider: Suzie Robbins Other Providers: Júnior Glasgow Other Interventions: Discharge Summary Assessment (RN) Last Done: 02/10/23 08:57
== END 2023-02-10 10:50 | disposition home or self-care (01) | DRG 375 ==
LOC: ED 15:15 → 3E 02-07 00:07

== ENCOUNTER 2023-05-28 17:47 | Inpatient (IN) ==
[2023-05-28 18:48] LABS: Basophils # (auto) 0.03 K/uL (0.00-0.20); Basophils % (auto) 0.3 %; Eosinophils # (auto) 0.02 K/uL (0.00-0.50); Eosinophils % (auto) 0.2 %; Hematocrit (blood only) 34.1 % (42.0-52.0); Hemoglobin 11.9 g/dl (14.0-18.0); Immature Granulocytes # (auto) 0.18 K/uL (0.01-0.20); Lymphocytes % (auto) 5.6 %; Mean Corpuscular Hemoglobin 36.2 pg (25.0-34.0); Mean Corpuscular Hgb Conc 34.9 g/dL (32.0-36.0); Mean Corpuscular Volume 103.6 fL (80.0-100.0); Mean Platelet Volume 9.6 fL (9.4-12.4); Monocytes # (auto) 1.03 K/uL (0.11-0.59); Monocytes % (auto) 11.5 %; Neutrophils # (auto) 7.16 K/uL (1.40-6.50); Neutrophils % (auto) 80.4 %; Platelet Count 202 K/uL (130-400); RDW Coefficient of Variation 17.6 % (11.5-14.5); RDW Standard Deviation 67.8 fL (36.4-46.3); Red Blood Count 3.29 M/uL (4.70-6.10); White Blood Count 8.92 K/ul (4.8-10.8)
--- NOTE | 2023-05-28 18:59 | Emergency Department Note ---
Impression & Plan Acute hyponatremia, Abdominal ascites, Weakness, Metastatic colon cancer to liver ED Provider Note Provider: Doyle Fonseca MD DATE OF SERVICE: 05/28/2023 CHIEF COMPLAINT: Weakness HISTORY OF PRESENT ILLNESS: Patient is a 77-year-old gentleman past sickle history of metastatic colon cancer, iron deficiency, DVT on Eliquis presenting here with family today from home. Patient has been undergoing treatment and following with [facility] oncology. Been 3 weeks since his last treatment due to weakness issues. Reports via patient and family that particular over the last week there is been significant increased weakness and fatigue. Had a fall on Thursday but did not strike his head. Has been taking his medications but limited food and drink intake. Family feel he is dehydrated. Last 3 days has had significant help with even transferring. Last night got stuck on the toilet for an hour until family were eventually able to help him off. Patient self reports some nonspecific chest discomfort as well as ongoing back issues. Family states this has been ongoing for some months. Patient denies injuring his arms or legs or striking his head. Denies headache. No fevers reported or significant URI symptoms. Intermittently using some oxycodone at home for pain but this makes him drowsy and loopy according to family. Intermittently taking his diuretics due to decreased intake. PAST MEDICAL HISTORY: As noted above MEDICATIONS: Reviewed home medications at bedside. SOCIAL HISTORY: Lives at home with PHYSICAL EXAM: GENERAL: alert and oriented but very fatigued and weak looking in bed Head: normocephalic and atraumatic EYES: No injection, discharge or icterus. PERRL, EOMI. NECK: Trachea midline. Supple without midline posterior cervical tenderness ENT: Mucous membranes pink and somewhat dry LUNGS: Airway patent. No retractions. Breath sounds clear with good air entry bilaterally. HEART: Regular rate and rhythm. No chest wall tenderness really appreciable on exam or crepitus noted. Right upper chest port accessed. ABDOMEN: Soft and non-tender, without guarding or rebound. SKIN: Acyanotic, warm, dry, without rashes EXTREMITIES: Without swelling, tenderness or deformity NEUROLOGICAL: No focal deficits. No aphasia. No facial droop or slurred speech. EK bpm low amplitude with PVC with what appears to be sinus rhythm PACs as opposed to atrial fibrillation. Left axis. No ST segment elevation. QTc 445. CONTINUOUS CARDIAC MONITORING: was ordered and showed a heart rate of 80s to 90s bpm in sinus rhythm occasional PAC GCS 15. Patient's laboratory studies and imaging reviewed. Differential includes Infection, dehydration, metabolic abnormality, hypo/hyperglycemia, electrolyte disturbance, anemia, hypoxia, cardiac sources, intracerebral event, toxicologic, neurologic, as well as other pathologies. IMPRESSION/MEDICAL DECISION MAKING: Patient several weeks out from chemotherapy but with metastatic colon cancer appears very weak and fatigued. Now transferring issues and got stuck on the toilet last night. Also requires hospitalization for his diffuse weakness. No fevers reported. Did have a fall on the weekend and possibly some chest and back pain but this pain seems to been ongoing for a longer period. Will obtain blood work. Given some gentle IV fluid hydration. Will obtain CT scans to exclude traumatic injury. Will check electrolytes. Lower suspicion for infectious etiology but feel that given his decreased intake and nutrition along with the cancer and treatment he is failing to thrive. Seems less likely to be to be focal or stroke. Anticoagulation lower suspicion for PE will attempt to use contrast for the best image possible given his cancer state and possible fall if renal function allows. Creatinine is normal but sodium low at 123 likely explains some of his weakness. Will be cautious with IV fluid hydration as such. Alkaline phosphatase and LFTs somewhat elevated likely in relation to his underlying metastatic cancer. Per radiology, CT of the head without acute intracranial abnormality or bleeding noted. CT of the chest per radiology report without evidence of PE with maybe some mild prominence of the esophagus and trace effusions. CT abdomen pelvis with large ascites and extensive liver metastasis and possible findings of peritoneal metastasis. History of metastatic colon cancer seems consistent with this. Doubt an abdominal bleeding. CT cervical spine per radiology reassuring. Again likely combination of some dehydration and his cancer process causing his increased weakness and hyponatremia. Given his weakness with transfers discussed with family Hospitalist team contacted. Will bring him into the hospital for further care. DIAGNOSIS: Weakness, metastatic colon cancer, hyponatremia DISPOSITION: Hospitalist will evaluate Patient was agreeable with this plan. Past Med/Surg History Medical History Metastatic cancer Social History Smoking Status: Never smoker Hx Alcohol Use: No Hx Substance Use: No Preferred Language: Malay Communication Ability: Effective Advertising Supervisor Required: No Beliefs That Will Affect Care: None Current Living Situation: Family Feels Safe at Home: Yes Assistive Devices: None Allergies Allergies Allergy/AdvReac Type Severity Reaction Status Date / Time prochlorperazine AdvReac Anaphylaxis Verified 05/28/23 20:08 [From Compazine] Home Meds Home Medications Medication Instructions Recorded Confirmed apixaban 5 mg tablet (Eliquis) 5 mg PO BID 02/07/23 05/28/23 escitalopram oxalate 10 mg tablet 10 mg PO DAILY 02/07/23 05/28/23 hydrochlorothiazide 25 mg tablet 25 mg PO DAILY 02/07/23 05/28/23 oxycodone 5 mg tablet 5 mg PO Q8 PRN Pain 02/07/23 05/28/23 spironolactone 50 mg tablet 50 mg PO DAILY 02/07/23 05/28/23 buspirone 10 mg tablet 10 mg PO TID 05/28/23 05/28/23 loratadine 10 mg tablet 10 mg PO QAM 05/28/23 05/28/23 mirtazapine 30 mg tablet 30 mg PO HS 05/28/23 05/28/23 multivitamin 1 tab PO DAILY 05/28/23 05/28/23 ondansetron HCl 8 mg tablet 8 mg PO Q8 PRN Nausea 05/28/23 05/28/23 sennosides 8.6 mg tablet (senna) 8.6 mg PO BID PRN Constipation 05/28/23 05/28/23 Results & Data (ED) Vital Signs Vital Signs - 24 hr 05/28/23 17:50 05/28/23 18:04 05/28/23 18:05 Temperature 36.8 C Temperature Source Temporal Artery Scan Pulse Rate 91 H Pulse Rate [Apical] 87 Pulse Rate from SpO2 Sensor Pulse Rhythm Regular Respiratory Rate 20 13 Respiratory Effort / Characteristics Non-Labored Spontaneous Non-Labored Spontaneous Respiratory Depth Normal Normal Respiratory Pattern Regular Blood Pressure 103/67 Blood Pressure [Right Arm] 116/93 Blood Pressure Mean 79 Blood Pressure Mean [Right Arm] 100 Pulse Oximetry 97 99 99 Oxygen Delivery Method Room Air Room Air Room Air Oxygen Flow Rate 0 Sepsis Recent Fever Within 48 Hours No Sepsis New/Unexplained Change in Mental Status No Sepsis Action Taken by Nursing No Action Required 05/28/23 18:16 05/28/23 18:20 05/28/23 18:21 Temperature Temperature Source Pulse Rate 95 H 86 Pulse Rate [Apical] Pulse Rate from SpO2 Sensor 85 81 Pulse Rhythm Respiratory Rate 16 14 Respiratory Effort / Characteristics Respiratory Depth Respiratory Pattern Blood Pressure Blood Pressure [Right Arm] Blood Pressure Mean Blood Pressure Mean [Right Arm] Pulse Oximetry 98 99 93 Oxygen Delivery Method Room Air Oxygen Flow Rate Sepsis Recent Fever Within 48 Hours Sepsis New/Unexplained Change in Mental Status Sepsis Action Taken by Nursing 05/28/23 18:22 05/28/23 18:30 05/28/23 18:40 Temperature Temperature Source Pulse Rate 77 81 86 Pulse Rate [Apical] Pulse Rate from SpO2 Sensor 82 87 Pulse Rhythm Respiratory Rate 15 13 Respiratory Effort / Characteristics Respiratory Depth Respiratory Pattern Blood Pressure Blood Pressure [Right Arm] Blood Pressure Mean Blood Pressure Mean [Right Arm] Pulse Oximetry 98 99 Oxygen Delivery Method Oxygen Flow Rate Sepsis Recent Fever Within 48 Hours Sepsis New/Unexplained Change in Mental Status Sepsis Action Taken by Nursing 05/28/23 18:50 05/28/23 19:00 05/28/23 19:10 Temperature Temperature Source Pulse Rate 86 87 92 H Pulse Rate [Apical] Pulse Rate from SpO2 Sensor 84 78 91 H Pulse Rhythm Respiratory Rate 12 13 18 Respiratory Effort / Characteristics Respiratory Depth Respiratory Pattern Blood Pressure Blood Pressure [Right Arm] Blood Pressure Mean Blood Pressure Mean [Right Arm] Pulse Oximetry 99 99 99 Oxygen Delivery Method Oxygen Flow Rate Sepsis Recent Fever Within 48 Hours Sepsis New/Unexplained Change in Mental Status Sepsis Action Taken by Nursing 05/28/23 19:20 05/28/23 19:42 05/28/23 19:50 Temperature Temperature Source Pulse Rate 74 79 Pulse Rate [Apical] Pulse Rate from SpO2 Sensor 72 81 81 Pulse Rhythm Respiratory Rate 13 13 Respiratory Effort / Characteristics Respiratory Depth Respiratory Pattern Blood Pressure Blood Pressure [Right Arm] Blood Pressure Mean Blood Pressure Mean [Right Arm] Pulse Oximetry 98 97 99 Oxygen Delivery Method Oxygen Flow Rate Sepsis Recent Fever Within 48 Hours Sepsis New/Unexplained Change in Mental Status Sepsis Action Taken by Nursing 05/28/23 20:00 05/28/23 20:10 05/28/23 20:20 Temperature Temperature Source Pulse Rate 72 61 85 Pulse Rate [Apical] Pulse Rate from SpO2 Sensor 81 76 80 Pulse Rhythm Respiratory Rate 13 13 18 Respiratory Effort / Characteristics Respiratory Depth Respiratory Pattern Blood Pressure Blood Pressure [Right Arm] Blood Pressure Mean Blood Pressure Mean [Right Arm] Pulse Oximetry 98 99 98 Oxygen Delivery Method Oxygen Flow Rate Sepsis Recent Fever Within 48 Hours Sepsis New/Unexplained Change in Mental Status Sepsis Action Taken by Nursing 05/28/23 20:30 05/28/23 20:38 05/28/23 20:38 Temperature Temperature Source Pulse Rate 83 83 Pulse Rate [Apical] Pulse Rate from SpO2 Sensor 83 82 Pulse Rhythm Respiratory Rate 14 16 Respiratory Effort / Characteristics Respiratory Depth Respiratory Pattern Blood Pressure 106/88 Blood Pressure [Right Arm] Blood Pressure Mean 99 Blood Pressure Mean [Right Arm] Pulse Oximetry 99 98 Oxygen Delivery Method Oxygen Flow Rate Sepsis Recent Fever Within 48 Hours Sepsis New/Unexplained Change in Mental Status Sepsis Action Taken by Nursing 05/28/23 20:40 05/28/23 20:50 05/28/23 21:00 Temperature Temperature Source Pulse Rate 85 85 Pulse Rate [Apical] Pulse Rate from SpO2 Sensor 84 71 Pulse Rhythm Respiratory Rate 15 Respiratory Effort / Characteristics Respiratory Depth Respiratory Pattern Blood Pressure 102/82 Blood Pressure [Right Arm] Blood Pressure Mean 97 Blood Pressure Mean [Right Arm] Pulse Oximetry 99 98 Oxygen Delivery Method Oxygen Flow Rate Sepsis Recent Fever Within 48 Hours Sepsis New/Unexplained Change in Mental Status Sepsis Action Taken by Nursing 05/28/23 21:00 05/28/23 21:10 05/28/23 21:20 Temperature Temperature Source Pulse Rate 80 80 81 Pulse Rate [Apical] Pulse Rate from SpO2 Sensor 78 76 76 Pulse Rhythm Respiratory Rate 18 Respiratory Effort / Characteristics Respiratory Depth Respiratory Pattern Blood Pressure Blood Pressure [Right Arm] Blood Pressure Mean Blood Pressure Mean [Right Arm] Pulse Oximetry 96 97 97 Oxygen Delivery Method Oxygen Flow Rate Sepsis Recent Fever Within 48 Hours Sepsis New/Unexplained Change in Mental Status Sepsis Action Taken by Nursing 05/28/23 21:30 05/28/23 21:40 Temperature Temperature Source Pulse Rate 85 85 Pulse Rate [Apical] Pulse Rate from SpO2 Sensor 83 77 Pulse Rhythm Respiratory Rate 19 14 Respiratory Effort / Characteristics Respiratory Depth Respiratory Pattern Blood Pressure Blood Pressure [Right Arm] Blood Pressure Mean Blood Pressure Mean [Right Arm] Pulse Oximetry 97 97 Oxygen Delivery Method Oxygen Flow Rate Sepsis Recent Fever Within 48 Hours Sepsis New/Unexplained Change in Mental Status Sepsis Action Taken by Nursing Laboratory Data 05/28/23 18:15 05/28/23 18:15 Lab Results 05/28/23 05/28/23 Range/Units 18:15 18:28 WBC 8.92 (4.8-10.8) K/ul RBC 3.29 L (4.70-6.10) M/uL Hgb 11.9 L (14.0-18.0) g/dl Hct 34.1 L (42.0-52.0) % MCV 103.6 H (80.0-100.0) fL MCH 36.2 H (25.0-34.0) pg MCHC 34.9 (32.0-36.0) g/dL RDW Std Deviation 67.8 H (36.4-46.3) fL RDW Coeff of Mayra 17.6 H (11.5-14.5) % Plt Count 202 (130-400) K/uL MPV 9.6 (9.4-12.4) fL Immature Gran % (Auto) 2.0 % Neut % (Auto) 80.4 % Lymph % (Auto) 5.6 % [place] % (Auto) 11.5 % Eos % (Auto) 0.2 % Baso % (Auto) 0.3 % Neut # (Auto) 7.16 H (1.40-6.50) K/uL Lymph # (Auto) 0.50 L (1.20-3.40) K/uL [place] # (Auto) 1.03 H (0.11-0.59) K/uL Eos # (Auto) 0.02 (0.00-0.50) K/uL Baso # (Auto) 0.03 (0.00-0.20) K/uL Immature Gran # (Auto) 0.18 (0.01-0.20) K/uL PT 16.0 H (9.0-12.0) Seconds INR 1.5 H (0.9-1.1) Sodium 123 L (136-145) mmol/L Potassium 3.5 (3.5-5.1) mmol/L Chloride 92 L (98-107) mmol/L Carbon Dioxide 22 (21-32) mmol/L Anion Gap 9 (3-11) BUN 31 H (6-23) mg/dl Creatinine 1.02 (0.6-1.4) mg/dl Est Cr Clr Drug Dosing 56.7 ml/min Est GFR ( Amer) 81.8 ml/min Est GFR (Non-Af Amer) 70.6 ml/min BUN/Creatinine Ratio 30.4 H (10-20) Glucose 137 H (70-99(Fasting)) mg/dl Calcium 8.3 L (8.6-10.3) mg/dl Magnesium 2.0 (1.7-2.4) mg/dl Total Bilirubin 2.3 H (0.2-1.0) mg/dl AST 139 H (13-39) U/L ALT 78 H (7-52) U/L Alkaline Phosphatase 629 H (34-104) U/L Total Creatine Kinase 820 H (30-223) U/L Total Protein 5.4 L (6.0-8.3) gm/dl Albumin 2.8 L (3.4-5.0) gm/dl Globulin 2.6 (2.5-4.0) gm/dl Albumin/Globulin Ratio 1.1 (0.9-2) Lipase 30 (11-82) U/L TSH 5.809 H (0.300-4.500) uIu/ml Free T4 1.15 (0.61-1.60) ng/dl SARS-CoV-2 (PCR) NEGATIVE (Negative) Influenza Type A (PCR) Negative (Neg) Influenza Type B (PCR) Negative (Neg) RSV (RT-PCR) Negative (Neg) Administered Medications Discontinued Medications Fentanyl Citrate (Fentanyl Citrate Pf 100 Mcg/2 Ml Vial) 25 mcg IV Q15M PRN PRN Reason: Pain Stop: 06/11/23 20:38 Last Admin: 05/28/23 20:50 Dose: 25 mcg Documented By: CONNIE Sodium Chloride (Nss) 1,000 mls @ 125 mls/hr IV .Q8H JORGE Stop: 06/27/23 18:59 Last Admin: 05/28/23 19:20 Dose: 125 mls/hr Documented By: CONNIE Ioversol (Optiray 320 125ml) 118 ml IV ONCE ONE Stop: 05/28/23 19:41 Last Admin: 05/28/23 19:40 Dose: 118 ml Documented By: GELY Imaging Data Radiologist's Impression: Chest X-Ray 05/28/23 18:21 SINGLE VIEW CHEST CLINICAL HISTORY: Generalized weakness. FINDINGS: An AP, portable, upright chest radiograph is compared to study dated 02/06/2023. The examination is degraded by portable technique and patient rotation. A right subclavian central venous infusion port is unchanged in position. The cardiomediastinal silhouette is normal for projection. There are low lung volumes and bibasilar atelectasis. No airspace consolidation or large pleural effusion is identified. No pneumothorax is seen. The skeletal structures are osteopenic. The bony thorax is grossly intact. IMPRESSION: Low lung volumes with bibasilar atelectasis. ACT 112: Negative or not required by law. Electronically signed by: Power Berrios M.D. 05/28/2023 7:18 PM Abdomen/Pelvis CT 05/28/23 18:32 Exam(s): CT ABDOMEN + PELVIS With Contrast IV Amt: 118ML OPTIRAY 320 EXAM: CT Abdomen and Pelvis With Intravenous Contrast CLINICAL HISTORY: Reason for exam: fall, weak, cancer, back pain. TECHNIQUE: Axial computed tomography images of the abdomen and pelvis with intravenous contrast. CTDI is 21.73 mGy and DLP is 598.51 mGy-cm. Automated exposure control was utilized for the study. A dose lowering technique was utilized adhering to the principles of ALARA. CONTRAST: Patient received 118ML OPTIRAY 320 of IV contrast COMPARISON: CT abdomen/pelvis on 02/06/2023. FINDINGS: Lung bases: Unremarkable. No mass. No consolidation. ABDOMEN: Liver: Extensive hypoattenuating liver metastases. Hepatomegaly. Nodular contour of the liver. Gallbladder and bile ducts: Unremarkable. No calcified stones. No ductal dilation. Pancreas: Unremarkable. No mass. No ductal dilation. Spleen: Unremarkable. No splenomegaly. Adrenals: Unremarkable. No mass. Kidneys and ureters: Small hypodense lesions in the kidneys are nonspecific. Further evaluation could be performed with ultrasound if clinically indicated. No hydronephrosis or obstructing stone. Stomach and bowel: Moderate to large amount of stool in the colon. No small bowel obstruction. Evaluation of the stomach is limited by underdistention. No mucosal thickening. PELVIS: Appendix: No findings to suggest acute appendicitis. Bladder: Unremarkable. No mass. Reproductive: Prostatomegaly. ABDOMEN and PELVIS: Intraperitoneal space: Large amount of ascites. Nonspecific 5 mm focus of enhancement along the right posterior pelvic peritoneum and more subtle foci of enhancement. There is also peritoneal enhancement along the anterior upper abdomen. Question peritoneal metastases. No free air. Bones/joints: Degenerative changes of the spine. No acute fracture. No dislocation. Soft tissues: Body wall edema. Small fat-containing left femoral hernia. Vasculature: Phleboliths in the pelvis. No abdominal aortic aneurysm. Lymph nodes: Unremarkable. No enlarged lymph nodes. IMPRESSION: 1. Extensive hypoattenuating liver metastases. Hepatomegaly. Nodular contour of the liver. 2. Large amount of ascites. 3. Nonspecific 5 mm focus of enhancement along the right posterior pelvic peritoneum and more subtle foci of enhancement. There is also peritoneal enhancement along the anterior upper abdomen. Question peritoneal metastases. 4. Prostatomegaly. Electronically signed by: Mohini Beckwith M.D. 05/28/23 20:[address] 05/28/23 18:32 Exam(s): CT C SPINE EXAM: CT Cervical Spine Without Intravenous Contrast CLINICAL HISTORY: Reason for exam: falls, weak. TECHNIQUE: Axial computed tomography images of the cervical spine without intravenous contrast. CTDI is 21.27 mGy and DLP is 433.62 mGy-cm. Automated exposure control was utilized for the study. A dose lowering technique was utilized adhering to the principles of ALARA. COMPARISON: None FINDINGS: Bones: Normal alignment. No acute fracture or bony lesion. Disc spaces: No subluxation. Degenerative changes of the spine. Soft tissues: Normal. Other: Nonspecific 5 mm nodule in the left upper lobe. Right-sided Port-A-Cath partially visualized. IMPRESSION: No acute traumatic abnormality. Electronically signed by: Mohini Beckwith M.D. 05/28/23 20:33 PM Chest CTA 05/28/23 18:32 Exam(s): CTA CHEST IV Amt: 118ML OPTIRAY 320 EXAM: CT Angiography Chest With Intravenous Contrast CLINICAL HISTORY: Reason for exam: PE, falls, weak, cancer, pain chest. TECHNIQUE: Axial computed tomographic angiography images of the chest with intravenous contrast. CTDI is 14.25 mGy and DLP is 7.12 mGy-cm. Automated exposure control was utilized for the study. A dose lowering technique was utilized adhering to the principles of ALARA. MIP reconstructed images were created and reviewed. COMPARISON: None FINDINGS: Pulmonary arteries: Unremarkable. No pulmonary embolus identified. Aorta: No acute findings. No aortic aneurysm or dissection. Lungs: Possible small calcified granulomas or other chronic calcifications in the right middle lobe. Nonspecific 4 mm nodule in the left upper lobe. Probable nonspecific 1 cm nodule in the medial left lower lobe. Mild dependent atelectasis bilaterally. Pleural space: Trace bilateral pleural effusions. No pneumothorax. Heart: Unremarkable. No cardiomegaly. No significant pericardial effusion. No evidence of RV dysfunction. Mediastinum: Mild prominence of the wall of the esophagus may represent esophagitis. Bones/joints: Degenerative changes of the spine. No acute fracture. No dislocation. Soft tissues: Unremarkable. Lymph nodes: Unremarkable. No enlarged lymph nodes. Tubes, lines and devices: Right-sided Port-A-Cath terminates in the right atrium. Other: Please see accompanying CT abdomen/pelvis for further details. IMPRESSION: 1. No pulmonary embolus identified. 2. No aortic aneurysm or dissection. 3. Mild prominence of the wall of the esophagus may represent esophagitis. 4. Trace bilateral pleural effusions. 5. Nonspecific 4 mm nodule in the left upper lobe. Probable nonspecific 1 cm nodule in the medial left lower lobe. Electronically signed by: Mohini Beckwith M.D. 05/28/23 20:[address] 05/28/23 18:32 Exam(s): CT HEAD Without Contrast EXAM: CT Head Without Intravenous Contrast CLINICAL HISTORY: Reason for exam: falls, weak. TECHNIQUE: Axial computed tomography images of the head/brain without intravenous contrast. CTDI is 36.67 mGy and DLP is 624.41 mGy-cm. Automated exposure control was utilized for the study. A dose lowering technique was utilized adhering to the principles of ALARA. COMPARISON: None FINDINGS: Brain: No acute infarct or hemorrhage identified. No extra-axial fluid collection. No mass effect or midline shift. Scattered areas of hypoattenuation in the supratentorial white matter likely represent chronic small vessel ischemic changes. Ventricles and sulci: Prominence of the ventricles and sulci is likely secondary to cerebral volume loss. Bones: Normal. No bony lesion or acute fracture. Subcutaneous tissues: Normal. Sinuses: Normal. No air-fluid levels or mucosal thickening. Mastoid air cells: Normal. Orbits: Grossly unremarkable. Other: Atherosclerotic calcifications in the intracranial vasculature. IMPRESSION: 1. No acute intracranial abnormality. 2. Chronic small vessel ischemic changes and cerebral volume loss. Electronically signed by: Mohini Beckwith M.D. 05/28/23 19:56 PM Discharge Plan Visit Data Chief Complaint: Weakness Stated Complaint: CHEMO, SEVERE WEAKNESS, POSSIBLE DEHYDRATION ED Provider: Doyle Fonseca Discharge Problem: Acute hyponatremia, Abdominal ascites, Weakness, Metastatic colon cancer to liver Patient Disposition: Being Evaluated by Hospitalist Discharge Instructions Interventions: ED Discharge Assessment Last Done: 05/28/23 23:38
[2023-05-28 19:06] LABS: Albumin Globulin Ratio 1.1 (0.9-2); Albumin Level 2.8 gm/dl (3.4-5.0); BUN Creatinine Ratio 30.4 (10-20); Bilirubin,Total 2.3 mg/dl (0.2-1.0); Calcium 8.3 mg/dl (8.6-10.3); Creatinine Clr Calc Pharmacy 56.7 ml/min; Est GFR (African American) 81.8 ml/min; Est GFR (Non-African American) 70.6 ml/min; Globulin 2.6 gm/dl (2.5-4.0); Potassium 3.5 mmol/L (3.5-5.1); Total Protein 5.4 gm/dl (6.0-8.3)
[2023-05-28 19:15] LABS: Influenza A virus by PCR Negative (Neg); Influenza B virus by PCR Negative (Neg); RSV by PCR Negative (Neg); SARS CoV2 RNA(COVID-19) Ceph NEGATIVE (Negative)
[2023-05-28 19:19] LABS: INR 1.5 (0.9-1.1)
[2023-05-28 19:20] LABS: Thyroid Stimulating Hormone 5.809 uIu/ml (0.300-4.500)
[2023-05-28] MEDS: SODIUM CHLORIDE 0.9% 1,000 ML IV SCH (19:20)
--- NOTE | 2023-05-28 19:20 | XRay Report ---
SINGLE VIEW CHEST CLINICAL HISTORY: Generalized weakness. FINDINGS: An AP, portable, upright chest radiograph is compared to study dated 02/06/2023. The examin ation is degraded by portable technique and patient rotation. A right subclavian central venous infu shivam port is unchanged in position. The cardiomediastinal silhouette is normal for projection. There are low lung volumes and bibasilar atelectasis. No airspace consolidation or large pleural effusion i s identified. No pneumothorax is seen. The skeletal structures are osteopenic. The bony thorax is fransisca ssly intact. IMPRESSION: Low lung volumes with bibasilar atelectasis. ACT 112: Negative or not required by law. Electronically signed by: Power Berrios M.D. 05/28/2023 7:18 PM
[2023-05-28] MEDS: OPTIRAY 320 125ml IV ONE (19:40)
[2023-05-28 19:57] LABS: T4 Free Thyroxine 1.15 ng/dl (0.61-1.60)
--- NOTE | 2023-05-28 19:57 | CT Scan Report ---
Exam(s): CT HEAD Without Contrast EXAM: CT Head Without Intravenous Contrast CLINICAL HISTORY: Reason for exam: falls, weak. TECHNIQUE: Axial computed tomography images of the head/brain without intravenous contrast. CTDI is 36.67 mGy and DLP is 624.41 mGy-cm. Automated exposure control was utilized for the study. A dose lowering technique was utilized adhering to the principles of ALARA. COMPARISON: None FINDINGS: Brain: No acute infarct or hemorrhage identified. No extra-axial fluid collection. No mass effect or midline shift. Scattered areas of hypoattenuation in the supratentorial white matter likely represent chronic small vessel ischemic changes. Ventricles and sulci: Prominence of the ventricles and sulci is likely secondary to cerebral volume loss. Bones: Normal. No bony lesion or acute fracture. Subcutaneous tissues: Normal. Sinuses: Normal. No air-fluid levels or mucosal thickening. Mastoid air cells: Normal. Orbits: Grossly unremarkable. Other: Atherosclerotic calcifications in the intracranial vasculature. IMPRESSION: 1. No acute intracranial abnormality. 2. Chronic small vessel ischemic changes and cerebral volume loss. Electronically signed by: Mohini Beckwith M.D. 05/28/23 19:56 PM
--- NOTE | 2023-05-28 20:13 | CT Scan Report ---
Exam(s): CTA CHEST IV Amt: 118ML OPTIRAY 320 EXAM: CT Angiography Chest With Intravenous Contrast CLINICAL HISTORY: Reason for exam: PE, falls, weak, cancer, pain chest. TECHNIQUE: Axial computed tomographic angiography images of the chest with intravenous contrast. CTDI is 14.25 mGy and DLP is 7.12 mGy-cm. Automated exposure control was utilized for the study. A dose lowering technique was utilized adhering to the principles of ALARA. MIP reconstructed images were created and reviewed. COMPARISON: None FINDINGS: Pulmonary arteries: Unremarkable. No pulmonary embolus identified. Aorta: No acute findings. No aortic aneurysm or dissection. Lungs: Possible small calcified granulomas or other chronic calcifications in the right middle lobe. Nonspecific 4 mm nodule in the left upper lobe. Probable nonspecific 1 cm nodule in the medial left lower lobe. Mild dependent atelectasis bilaterally. Pleural space: Trace bilateral pleural effusions. No pneumothorax. Heart: Unremarkable. No cardiomegaly. No significant pericardial effusion. No evidence of RV dysfunction. Mediastinum: Mild prominence of the wall of the esophagus may represent esophagitis. Bones/joints: Degenerative changes of the spine. No acute fracture. No dislocation. Soft tissues: Unremarkable. Lymph nodes: Unremarkable. No enlarged lymph nodes. Tubes, lines and devices: Right-sided Port-A-Cath terminates in the right atrium. Other: Please see accompanying CT abdomen/pelvis for further details. IMPRESSION: 1. No pulmonary embolus identified. 2. No aortic aneurysm or dissection. 3. Mild prominence of the wall of the esophagus may represent esophagitis. 4. Trace bilateral pleural effusions. 5. Nonspecific 4 mm nodule in the left upper lobe. Probable nonspecific 1 cm nodule in the medial left lower lobe. Electronically signed by: Mohini Beckwith M.D. 05/28/23 20:13 PM
--- NOTE | 2023-05-28 20:22 | CT Scan Report ---
Exam(s): CT ABDOMEN + PELVIS With Contrast IV Amt: 118ML OPTIRAY 320 EXAM: CT Abdomen and Pelvis With Intravenous Contrast CLINICAL HISTORY: Reason for exam: fall, weak, cancer, back pain. TECHNIQUE: Axial computed tomography images of the abdomen and pelvis with intravenous contrast. CTDI is 21.73 mGy and DLP is 598.51 mGy-cm. Automated exposure control was utilized for the study. A dose lowering technique was utilized adhering to the principles of ALARA. CONTRAST: Patient received 118ML OPTIRAY 320 of IV contrast COMPARISON: CT abdomen/pelvis on 02/06/2023. FINDINGS: Lung bases: Unremarkable. No mass. No consolidation. ABDOMEN: Liver: Extensive hypoattenuating liver metastases. Hepatomegaly. Nodular contour of the liver. Gallbladder and bile ducts: Unremarkable. No calcified stones. No ductal dilation. Pancreas: Unremarkable. No mass. No ductal dilation. Spleen: Unremarkable. No splenomegaly. Adrenals: Unremarkable. No mass. Kidneys and ureters: Small hypodense lesions in the kidneys are nonspecific. Further evaluation could be performed with ultrasound if clinically indicated. No hydronephrosis or obstructing stone. Stomach and bowel: Moderate to large amount of stool in the colon. No small bowel obstruction. Evaluation of the stomach is limited by underdistention. No mucosal thickening. PELVIS: Appendix: No findings to suggest acute appendicitis. Bladder: Unremarkable. No mass. Reproductive: Prostatomegaly. ABDOMEN and PELVIS: Intraperitoneal space: Large amount of ascites. Nonspecific 5 mm focus of enhancement along the right posterior pelvic peritoneum and more subtle foci of enhancement. There is also peritoneal enhancement along the anterior upper abdomen. Question peritoneal metastases. No free air. Bones/joints: Degenerative changes of the spine. No acute fracture. No dislocation. Soft tissues: Body wall edema. Small fat-containing left femoral hernia. Vasculature: Phleboliths in the pelvis. No abdominal aortic aneurysm. Lymph nodes: Unremarkable. No enlarged lymph nodes. IMPRESSION: 1. Extensive hypoattenuating liver metastases. Hepatomegaly. Nodular contour of the liver. 2. Large amount of ascites. 3. Nonspecific 5 mm focus of enhancement along the right posterior pelvic peritoneum and more subtle foci of enhancement. There is also peritoneal enhancement along the anterior upper abdomen. Question peritoneal metastases. 4. Prostatomegaly. Electronically signed by: Mohini Beckwith M.D. 05/28/23 20:21 PM
--- NOTE | 2023-05-28 20:34 | CT Scan Report ---
Exam(s): CT C SPINE EXAM: CT Cervical Spine Without Intravenous Contrast CLINICAL HISTORY: Reason for exam: falls, weak. TECHNIQUE: Axial computed tomography images of the cervical spine without intravenous contrast. CTDI is 21.27 mGy and DLP is 433.62 mGy-cm. Automated exposure control was utilized for the study. A dose lowering technique was utilized adhering to the principles of ALARA. COMPARISON: None FINDINGS: Bones: Normal alignment. No acute fracture or bony lesion. Disc spaces: No subluxation. Degenerative changes of the spine. Soft tissues: Normal. Other: Nonspecific 5 mm nodule in the left upper lobe. Right-sided Port-A-Cath partially visualized. IMPRESSION: No acute traumatic abnormality. Electronically signed by: Mohini Beckwith M.D. 05/28/23 20:33 PM
[2023-05-28] MEDS: fentaNYL citrate PF 100 MCG/2 ML VIAL IV PRN (20:50)
--- NOTE | 2023-05-28 22:03 | History & Physical Report ---
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 Because of his weakness his chemo is on hold for almost 4 weeks now. There is a plan to change his chemo. Lately patient having decreased p.o. intake. Feeling weak and fatigued. Last few days requiring significant help for transferring. Ambulates with a walker. Seems last night got stuck on the toilet for 1 hour until family was eventually able to help him. Patient speaking in very low volume. Could tell his name. Could tell his date of . Knows that he is in the hospital. Could tell the month. But thinks it is 2022. Complains of pain in the rib cage. Denies any headache. No dizziness. Has some runny nose. No sore throat or cough. No fevers. No nausea. Denies abdominal pain. Normal bowel and bladder movements. Denies blood in the stools. Hemodynamically stable.Family in room. Hyponatremia Sodium 123 Recently his hydrochlorothiazide and spironolactone was changed to 3 times a week which will be held for now Will check urine osmolality, urine sodium and serum osmolality levels Gentle fluids with D5 normal @50 mill per hour Slow correction BMP every 6 hours Nephrology consulted for further recommendations Questionable new A-fib Will follow serial enzymes and echo Cardiology consult in a.m. Stage IV colon cancer metastatic to liver and lungs Currently chemo on hold for weakness since last 4 weeks On palliative chemo Follow-up with heme-onc Elevated LFTs Mostly from metastatic disease hepatitis B core antibody positive Will follow repeat labs Elevated CPK levels Getting fluids Follow repeat labs History of DVT On Eliquis General anxiety disorder Depression On buspirone, Lexapro and Remeron Chronic pain Oxycodone as needed IV morphine as needed Follows with [facility] palliative care Ascites Last admission January 2023 4 L were taken out Pseudocirrhosis of liver Will do diagnostic and therapeutic paracentesis albumin at time of paracentesis History of iron deficiency anemia Patient is Sikhism Hemoglobin stable at 11.9 DVT prophylaxis On Eliquis Disposition Telemetry floor Full code as per discussion with the family History of Present Illness Chief Complaint: Weakness, hyponatremia Primary Care Provider: Carter Ashabenitez 77-year-old male with past medical history significant for stage IV colon cancer metastatic to liver and lungs, severe protein energy malnutrition, history of ANTHONY, history of iron deficiency anemia, Jehovah witness, Elevated LFTs, general anxiety disorder, history of DVT presents with weakness and poor oral intake and found to have hyponatremia. Because of his weakness his chemo is on hold for almost 4 weeks now. There is a plan to change his chemo. Lately patient having decreased p.o. intake. Feeling weak and fatigued. Last few days requiring significant help for transferring. Ambulates with a walker. Seems last night got stuck on the toilet for 1 hour until family was eventually able to help him. Patient speaking in very low volume. Could tell his name. Could tell his date of . Knows that he is in the hospital. Could tell the month. But thinks it is 2022. Complains of pain in the rib cage. Denies any headache. No dizziness. Has some runny nose. No sore throat or cough. No fevers. No nausea. Denies abdominal pain. Normal bowel and bladder movements. Denies blood in the stools. Hemodynamically stable.Family in the room. Past medical history. As mentioned above Past surgical history. IR biopsy. Paracentesis Social history. . No smoking. No alcohol use. No drug use. Family history. No family history on file Allergies Allergy/AdvReac Type Severity Reaction Status Date / Time prochlorperazine Allergy Severe Anaphylaxis Verified 05/29/23 00:35 [From Compazine] Home Medications Medication Instructions Recorded Confirmed Type apixaban 5 mg tablet (Eliquis) 5 mg PO BID 02/07/23 05/28/23 History escitalopram oxalate 10 mg tablet 10 mg PO DAILY 02/07/23 05/28/23 History hydrochlorothiazide 25 mg tablet 25 mg PO DAILY 02/07/23 05/28/23 History oxycodone 5 mg tablet 5 mg PO Q8 PRN Pain 02/07/23 05/28/23 History spironolactone 50 mg tablet 50 mg PO DAILY 02/07/23 05/28/23 History buspirone 10 mg tablet 10 mg PO TID 05/28/23 05/28/23 History loratadine 10 mg tablet 10 mg PO QAM 05/28/23 05/28/23 History mirtazapine 30 mg tablet 30 mg PO HS 05/28/23 05/28/23 History multivitamin 1 tab PO DAILY 05/28/23 05/28/23 History ondansetron HCl 8 mg tablet 8 mg PO Q8 PRN Nausea 05/28/23 05/28/23 History sennosides 8.6 mg tablet (senna) 8.6 mg PO BID PRN Constipation 05/28/23 05/28/23 History Past Med/Surg History Medical History Metastatic cancer Social History Smoking Status: Never smoker Second Hand Exposure: No; Do You Dip or Chew Tobacco: No; Tobacco Cessation Education Requested by Patient: No Hx Alcohol Use: No Hx Substance Use: No Preferred Language: Argentine Communication Ability: Effective 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 Not in acute distress Head- atraumatic Eyes- PERRL. ENT- oropharynx clear Neck- supple, no JVD. Lungs- clear to auscultation no wheezing or crackles Heart- regular rhythm; no murmur, no gallop. Abdomen- normal bowel sounds, distended no tenderness Extremities- no pretibial edema, no erythema seen Neuro- alert, oriented x 2; PERRL, no facial palsy; no dysarthria; moves extremities Skin- Dry Results & Data Results & Data Vital Signs (Past 12 Hours) Vital Signs Temp Pulse Pulse Resp BP BP Pulse Ox 05/28/23 21:30 85 19 97 05/28/23 21:20 81 18 97 05/28/23 21:10 80 97 05/28/23 21:00 80 96 05/28/23 21:00 102/82 05/28/23 20:50 85 15 98 05/28/23 20:40 85 99 05/28/23 20:38 83 16 98 05/28/23 20:38 106/88 05/28/23 20:30 83 14 99 05/28/23 20:20 85 18 98 05/28/23 20:10 61 13 99 05/28/23 20:00 72 13 98 05/28/23 19:50 79 13 99 05/28/23 19:42 97 05/28/23 19:20 74 13 98 05/28/23 19:10 92 H 18 99 05/28/23 19:00 87 13 99 05/28/23 18:50 86 12 99 05/28/23 18:40 86 13 99 05/28/23 18:30 81 15 98 05/28/23 18:22 77 05/28/23 18:21 93 05/28/23 18:20 86 14 99 05/28/23 18:16 95 H 16 98 05/28/23 18:05 99 05/28/23 18:04 87 13 116/93 99 05/28/23 17:50 36.8 C 91 H 20 103/67 97 O2 Del Method O2 Flow Rate 05/28/23 21:30 05/28/23 21:20 05/28/23 21:10 05/28/23 21:00 05/28/23 21:00 05/28/23 20:50 05/28/23 20:40 05/28/23 20:38 05/28/23 20:38 05/28/23 20:30 05/28/23 20:20 05/28/23 20:10 05/28/23 20:00 05/28/23 19:50 05/28/23 19:42 05/28/23 19:20 05/28/23 19:10 05/28/23 19:00 05/28/23 18:50 05/28/23 18:40 05/28/23 18:30 05/28/23 18:22 05/28/23 18:21 Room Air 05/28/23 18:20 05/28/23 18:16 05/28/23 18:05 Room Air 0 05/28/23 18:04 Room Air 05/28/23 17:50 Room Air Diagnostic Findings Laboratory Results WBC 8.92 K/ul (4.8-10.8) 05/28/23 18:15 RBC 3.29 M/uL (4.70-6.10) L 05/28/23 18:15 Hgb 11.9 g/dl (14.0-18.0) L 05/28/23 18:15 Hct 34.1 % (42.0-52.0) L 05/28/23 18:15 MCV 103.6 fL (80.0-100.0) H 05/28/23 18:15 MCH 36.2 pg (25.0-34.0) H 05/28/23 18:15 MCHC 34.9 g/dL (32.0-36.0) 05/28/23 18:15 RDW Std Deviation 67.8 fL (36.4-46.3) H 05/28/23 18:15 RDW Coeff of Mayra 17.6 % (11.5-14.5) H 05/28/23 18:15 Plt Count 202 K/uL (130-400) 05/28/23 18:15 MPV 9.6 fL (9.4-12.4) 05/28/23 18:15 Immature Gran % (Auto) 2.0 % 05/28/23 18:15 Neut % (Auto) 80.4 % 05/28/23 18:15 Lymph % (Auto) 5.6 % 05/28/23 18:15 Bates % (Auto) 11.5 % 05/28/23 18:15 Eos % (Auto) 0.2 % 05/28/23 18:15 Baso % (Auto) 0.3 % 05/28/23 18:15 Neut # (Auto) 7.16 K/uL (1.40-6.50) H 05/28/23 18:15 Lymph # (Auto) 0.50 K/uL (1.20-3.40) L 05/28/23 18:15 Bates # (Auto) 1.03 K/uL (0.11-0.59) H 05/28/23 18:15 Eos # (Auto) 0.02 K/uL (0.00-0.50) 05/28/23 18:15 Baso # (Auto) 0.03 K/uL (0.00-0.20) 05/28/23 18:15 Immature Gran # (Auto) 0.18 K/uL (0.01-0.20) 05/28/23 18:15 PT 16.0 Seconds (9.0-12.0) H 05/28/23 18:15 INR 1.5 (0.9-1.1) H 05/28/23 18:15 Sodium 123 mmol/L (136-145) L 05/28/23 18:15 Potassium 3.5 mmol/L (3.5-5.1) 05/28/23 18:15 Chloride 92 mmol/L (98-107) L 05/28/23 18:15 Carbon Dioxide 22 mmol/L (21-32) 05/28/23 18:15 Anion Gap 9 (3-11) 05/28/23 18:15 BUN 31 mg/dl (6-23) H 05/28/23 18:15 Creatinine 1.02 mg/dl (0.6-1.4) 05/28/23 18:15 Est Cr Clr Drug Dosing 56.7 ml/min 05/28/23 18:15 Est GFR ( Amer) 81.8 ml/min 05/28/23 18:15 Est GFR (Non-Af Amer) 70.6 ml/min 05/28/23 18:15 BUN/Creatinine Ratio 30.4 (10-20) H 05/28/23 18:15 Glucose 137 mg/dl (70-99(Fasting)) H 05/28/23 18:15 Calcium 8.3 mg/dl (8.6-10.3) L 05/28/23 18:15 Magnesium 2.0 mg/dl (1.7-2.4) 05/28/23 18:15 Total Bilirubin 2.3 mg/dl (0.2-1.0) H 05/28/23 18:15 AST 139 U/L (13-39) H 05/28/23 18:15 ALT 78 U/L (7-52) H 05/28/23 18:15 Alkaline Phosphatase 629 U/L (34-104) H 05/28/23 18:15 Total Creatine Kinase 820 U/L (30-223) H 05/28/23 18:15 Total Protein 5.4 gm/dl (6.0-8.3) L 05/28/23 18:15 Albumin 2.8 gm/dl (3.4-5.0) L 05/28/23 18:15 Globulin 2.6 gm/dl (2.5-4.0) 05/28/23 18:15 Albumin/Globulin Ratio 1.1 (0.9-2) 05/28/23 18:15 Lipase 30 U/L (11-82) 05/28/23 18:15 TSH 5.809 uIu/ml (0.300-4.500) H 05/28/23 18:15 Free T4 1.15 ng/dl (0.61-1.60) 05/28/23 18:15 SARS-CoV-2 (PCR) NEGATIVE (Negative) 05/28/23 18:28 Influenza Type A (PCR) Negative (Neg) 05/28/23 18:28 Influenza Type B (PCR) Negative (Neg) 05/28/23 18:28 RSV (RT-PCR) Negative (Neg) 05/28/23 18:28 Impressions Chest X-Ray 05/28/23 18:21 SINGLE VIEW CHEST CLINICAL HISTORY: Generalized weakness. FINDINGS: An AP, portable, upright chest radiograph is compared to study dated 02/06/2023. The examination is degraded by portable technique and patient rotation. A right subclavian central venous infusion port is unchanged in position. The cardiomediastinal silhouette is normal for projection. There are low lung volumes and bibasilar atelectasis. No airspace consolidation or large pleural effusion is identified. No pneumothorax is seen. The skeletal structures are osteopenic. The bony thorax is grossly intact. IMPRESSION: Low lung volumes with bibasilar atelectasis. ACT 112: Negative or not required by law. Electronically signed by: Power Berrios M.D. 05/28/2023 7:18 PM Abdomen/Pelvis CT 05/28/23 18:32 Exam(s): CT ABDOMEN + PELVIS With Contrast IV Amt: 118ML OPTIRAY 320 EXAM: CT Abdomen and Pelvis With Intravenous Contrast CLINICAL HISTORY: Reason for exam: fall, weak, cancer, back pain. TECHNIQUE: Axial computed tomography images of the abdomen and pelvis with intravenous contrast. CTDI is 21.73 mGy and DLP is 598.51 mGy-cm. Automated exposure control was utilized for the study. A dose lowering technique was utilized adhering to the principles of ALARA. CONTRAST: Patient received 118ML OPTIRAY 320 of IV contrast COMPARISON: CT abdomen/pelvis on 02/06/2023. FINDINGS: Lung bases: Unremarkable. No mass. No consolidation. ABDOMEN: Liver: Extensive hypoattenuating liver metastases. Hepatomegaly. Nodular contour of the liver. Gallbladder and bile ducts: Unremarkable. No calcified stones. No ductal dilation. Pancreas: Unremarkable. No mass. No ductal dilation. Spleen: Unremarkable. No splenomegaly. Adrenals: Unremarkable. No mass. Kidneys and ureters: Small hypodense lesions in the kidneys are nonspecific. Further evaluation could be performed with ultrasound if clinically indicated. No hydronephrosis or obstructing stone. Stomach and bowel: Moderate to large amount of stool in the colon. No small bowel obstruction. Evaluation of the stomach is limited by underdistention. No mucosal thickening. PELVIS: Appendix: No findings to suggest acute appendicitis. Bladder: Unremarkable. No mass. Reproductive: Prostatomegaly. ABDOMEN and PELVIS: Intraperitoneal space: Large amount of ascites. Nonspecific 5 mm focus of enhancement along the right posterior pelvic peritoneum and more subtle foci of enhancement. There is also peritoneal enhancement along the anterior upper abdomen. Question peritoneal metastases. No free air. Bones/joints: Degenerative changes of the spine. No acute fracture. No dislocation. Soft tissues: Body wall edema. Small fat-containing left femoral hernia. Vasculature: Phleboliths in the pelvis. No abdominal aortic aneurysm. Lymph nodes: Unremarkable. No enlarged lymph nodes. IMPRESSION: 1. Extensive hypoattenuating liver metastases. Hepatomegaly. Nodular contour of the liver. 2. Large amount of ascites. 3. Nonspecific 5 mm focus of enhancement along the right posterior pelvic peritoneum and more subtle foci of enhancement. There is also peritoneal enhancement along the anterior upper abdomen. Question peritoneal metastases. 4. Prostatomegaly. Electronically signed by: Mohini Beckwith M.D. 05/28/23 20:[address] 05/28/23 18:32 Exam(s): CT C SPINE EXAM: CT Cervical Spine Without Intravenous Contrast CLINICAL HISTORY: Reason for exam: falls, weak. TECHNIQUE: Axial computed tomography images of the cervical spine without intravenous contrast. CTDI is 21.27 mGy and DLP is 433.62 mGy-cm. Automated exposure control was utilized for the study. A dose lowering technique was utilized adhering to the principles of ALARA. COMPARISON: None FINDINGS: Bones: Normal alignment. No acute fracture or bony lesion. Disc spaces: No subluxation. Degenerative changes of the spine. Soft tissues: Normal. Other: Nonspecific 5 mm nodule in the left upper lobe. Right-sided Port-A-Cath partially visualized. IMPRESSION: No acute traumatic abnormality. Electronically signed by: Mohini Beckwith M.D. 05/28/23 20:33 PM Chest CTA 05/28/23 18:32 Exam(s): CTA CHEST IV Amt: 118ML OPTIRAY 320 EXAM: CT Angiography Chest With Intravenous Contrast CLINICAL HISTORY: Reason for exam: PE, falls, weak, cancer, pain chest. TECHNIQUE: Axial computed tomographic angiography images of the chest with intravenous contrast. CTDI is 14.25 mGy and DLP is 7.12 mGy-cm. Automated exposure control was utilized for the study. A dose lowering technique was utilized adhering to the principles of ALARA. MIP reconstructed images were created and reviewed. COMPARISON: None FINDINGS: Pulmonary arteries: Unremarkable. No pulmonary embolus identified. Aorta: No acute findings. No aortic aneurysm or dissection. Lungs: Possible small calcified granulomas or other chronic calcifications in the right middle lobe. Nonspecific 4 mm nodule in the left upper lobe. Probable nonspecific 1 cm nodule in the medial left lower lobe. Mild dependent atelectasis bilaterally. Pleural space: Trace bilateral pleural effusions. No pneumothorax. Heart: Unremarkable. No cardiomegaly. No significant pericardial effusion. No evidence of RV dysfunction. Mediastinum: Mild prominence of the wall of the esophagus may represent esophagitis. Bones/joints: Degenerative changes of the spine. No acute fracture. No dislocation. Soft tissues: Unremarkable. Lymph nodes: Unremarkable. No enlarged lymph nodes. Tubes, lines and devices: Right-sided Port-A-Cath terminates in the right atrium. Other: Please see accompanying CT abdomen/pelvis for further details. IMPRESSION: 1. No pulmonary embolus identified. 2. No aortic aneurysm or dissection. 3. Mild prominence of the wall of the esophagus may represent esophagitis. 4. Trace bilateral pleural effusions. 5. Nonspecific 4 mm nodule in the left upper lobe. Probable nonspecific 1 cm nodule in the medial left lower lobe. Electronically signed by: Mohini Beckwith M.D. 05/28/23 20:[address] 05/28/23 18:32 Exam(s): CT HEAD Without Contrast EXAM: CT Head Without Intravenous Contrast CLINICAL HISTORY: Reason for exam: falls, weak. TECHNIQUE: Axial computed tomography images of the head/brain without intravenous contrast. CTDI is 36.67 mGy and DLP is 624.41 mGy-cm. Automated exposure control was utilized for the study. A dose lowering technique was utilized adhering to the principles of ALARA. COMPARISON: None FINDINGS: Brain: No acute infarct or hemorrhage identified. No extra-axial fluid collection. No mass effect or midline shift. Scattered areas of hypoattenuation in the supratentorial white matter likely represent chronic small vessel ischemic changes. Ventricles and sulci: Prominence of the ventricles and sulci is likely secondary to cerebral volume loss. Bones: Normal. No bony lesion or acute fracture. Subcutaneous tissues: Normal. Sinuses: Normal. No air-fluid levels or mucosal thickening. Mastoid air cells: Normal. Orbits: Grossly unremarkable. Other: Atherosclerotic calcifications in the intracranial vasculature. IMPRESSION: 1. No acute intracranial abnormality. 2. Chronic small vessel ischemic changes and cerebral volume loss. Electronically signed by: Mohini Beckwith M.D. 05/28/23 19:56 PM ECG Additional Comments: ECG. Atrial fibrillation with PVCs at a rate of 92. Left axis deviation. Code Status & VTE Plan VTE Prophylaxis Plan VTE Prophylaxis will be ordered: Yes
[2023-05-29] MEDS ORDERED: NITROGLYCERIN SL 0.4 MG/TAB TAB SL PRN (00:21)
[2023-05-29] MEDS ORDERED: SENNA 8.6 MG TAB PO PRN (00:21)
[2023-05-29] MEDS: D5W AND NSS 1,000 ML IV SCH (00:33)
[2023-05-29] MEDS: oxyCODONE HCL IR 5 MG TAB (IMMEDIATE RELEASE) PO PRN (01:22)
[2023-05-29 01:33] LABS: Appearance Urine Cloudy (Clear); Bacteria Urine Automated Negative (Negative); Blood Urine Negative (Negative); Color Urine Dark Yellow; Glucose Urine UA Negative (Negative); Ketones Urine Negative (Negative); Leukocyte Esterase Urine Trace (Negative); Nitrite Urine Positive (Negative); Protein Urine Trace (Negative); RBC Urine Automated 0-4 /hpf (0-4); Specific Gravity Urine 1.045 (1.000-1.030); Urobilinogen Urine Positive (Negative)
[2023-05-29 01:36] LABS: Bilirubin Urine 1+ (Negative)
[2023-05-29 01:48] LABS: Calcium Oxalate Crystals Urine Present (None Prsent)
[2023-05-29 06:09] LABS: Basophils # (auto) 0.02 K/uL (0.00-0.20); Basophils % (auto) 0.2 %; Hemoglobin 10.9 g/dl (14.0-18.0); Immature Granulocytes # (auto) 0.18 K/uL (0.01-0.20); Immature Granulocytes % (auto) 1.9 %; Lymphocytes # (auto) 0.82 K/uL (1.20-3.40); Lymphocytes % (auto) 8.8 %; Mean Corpuscular Hemoglobin 37.3 pg (25.0-34.0); Mean Corpuscular Hgb Conc 36.3 g/dL (32.0-36.0); Mean Corpuscular Volume 102.7 fL (80.0-100.0); Mean Platelet Volume 9.5 fL (9.4-12.4); Monocytes # (auto) 1.59 K/uL (0.11-0.59); Monocytes % (auto) 17.2 %; Neutrophils # (auto) 6.66 K/uL (1.40-6.50); Neutrophils % (auto) 71.9 %; Platelet Count 170 K/uL (130-400); RDW Coefficient of Variation 17.5 % (11.5-14.5); Red Blood Count 2.92 M/uL (4.70-6.10); White Blood Count 9.27 K/ul (4.8-10.8)
[2023-05-29 06:28] LABS: Albumin Level 2.6 gm/dl (3.4-5.0); BUN Creatinine Ratio 32.3 (10-20); Bilirubin,Total 2.1 mg/dl (0.2-1.0); Creatinine Clr Calc Pharmacy 55.2 ml/min; Est GFR (African American) 84.8 ml/min; Est GFR (Non-African American) 73.2 ml/min; Potassium 3.6 mmol/L (3.5-5.1); Total Protein 4.8 gm/dl (6.0-8.3)
[2023-05-29 06:32] LABS: Troponin I High Sensitivity 10.9 pg/ml (0-20)
[2023-05-29] MEDS: MULTIVITAMIN TAB PO SCH (07:49)
[2023-05-29] MEDS: ESCITALOPRAM OXALATE 10 MG TAB PO SCH (07:49)
[2023-05-29] MEDS: LORATADINE 10 MG TAB PO SCH (07:49)
[2023-05-29] MEDS: APIXABAN 5 MG TABLET PO SCH (07:49)
[2023-05-29] MEDS: busPIRone 5 MG TAB PO SCH (07:49)
--- NOTE | 2023-05-29 08:58 | Nephrology Consultation ---
Date of Consultation May 29, 2023 Assessment & Plan (1) Hyponatremia: severe and not improving hypervolemic hyponatremia in the setting of cancer metastatic to liver; needs diuresis and possibly paracentesis; at risk for ANTHONY w/ recent IV contrast -continue to hold lasix, spironoalctone -fluid limit 1.5 L daily toward which protein shakes do not count -college president consult to help improve po intake wilda protein intake -will stop IV fluids and start him on albumin and periodic low dose lasix -daily STANDING weights ordereed -needs strict I/O -at risk for ANTHONY after large IV contrast load and given need for diuresis -control pain to lower ADH release > defer to primary service for this -agree w/ bmp q6h; next one noon -started K 20 mEq bid > needs eukalemia to correct na -goal sNa for tomorrow AM is no more than 129 but aiming primarily to maintain or improve a small amount Care coordinated w/ dr Cheek History of Present Illness Reason for Consultation: hyponatremia Requesting Physician: Dr Glasgow Attending Physician: Dianne Cheek MD History of Present Illness 77 y/o M whom I'm asked to see for hyponatremia was admitted yesterday with severe hyponatremia and presenting sodium 123 after he presented with severe weakness, fatigue, and poor oral intake. 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 he is a [employer]. His hctz and spironolactone were held at admission. his sbp have been running in the 90-100s. started on D5NS at 50 mL/hr; also paracentesis had been planned but this was deferred d/t elevated INR; further sodium labs as below; admission imaging w/ IV contrast shows large abdominal ascites and no PE, extensive liver mets. He c/o severe midthoracic back pain; he Denies headache, dizziness, sore throat, cough, F, abd pain, N, change in bowel/bladder habits. Minimal po intake. no sob. he is not feeling very well >> he tells me his hctz and spironolactone were stopped by a provider but not sure by what provider or how recently. Allergies Allergy/AdvReac Type Severity Reaction Status Date / Time prochlorperazine Allergy Severe Anaphylaxis Verified 05/29/23 00:35 [From Compazine] Home Medications Medication Instructions Recorded Confirmed Type apixaban 5 mg tablet (Eliquis) 5 mg PO BID 02/07/23 05/28/23 History escitalopram oxalate 10 mg tablet 10 mg PO DAILY 02/07/23 05/28/23 History hydrochlorothiazide 25 mg tablet 25 mg PO DAILY 02/07/23 05/28/23 History oxycodone 5 mg tablet 5 mg PO Q8 PRN Pain 02/07/23 05/28/23 History spironolactone 50 mg tablet 50 mg PO DAILY 02/07/23 05/28/23 History buspirone 10 mg tablet 10 mg PO TID 05/28/23 05/28/23 History loratadine 10 mg tablet 10 mg PO QAM 05/28/23 05/28/23 History mirtazapine 30 mg tablet 30 mg PO HS 05/28/23 05/28/23 History multivitamin 1 tab PO DAILY 05/28/23 05/28/23 History ondansetron HCl 8 mg tablet 8 mg PO Q8 PRN Nausea 05/28/23 05/28/23 History sennosides 8.6 mg tablet (senna) 8.6 mg PO BID PRN Constipation 05/28/23 05/28/23 History Patient History Medical History High transaminase levels JOY (generalized anxiety disorder) Hypertension Ambulatory dysfunction walker dependent DVT (deep venous thrombosis) Metastatic cancer colon cancer metastatic to liver, lungs Surgical History History of abdominal paracentesis Social History Smoking Status: Never smoker Second Hand Exposure: No; Do You Dip or Chew Tobacco: No; Tobacco Cessation Education Requested by Patient: No Hx Alcohol Use: No Hx Substance Use: No Preferred Language: Sinhala Communication Ability: Effective Automotive Mechanic Required: No Beliefs That Will Affect Care: Zoroastrianism Zoroastrianism Beliefs: Episcopal refuses blood transfusion Current Living Situation: Spouse Other Information That Helps Us Care for You: No Feels Safe at Home: Yes Safety Concerns: Feels Safe At This Time Assistive Devices: Denture - Upper, Denture - Lower and Walker Review of Systems 2 Review of Systems: All systems reviewed & are unremarkable except as noted in HPI & below Physical Exam 2 Constitutional: well developed, + cachectic, + frail appearing and cooperative Eyes: EOM intact bilaterally ENMT: Ears: no external ear abnormality Nose: no external nose abnormality Mouth: + dry oral mucous membranes Neck: no nuchal rigidity Respiratory: normal respiratory effort Auscultation: + diminished lung sounds Cardiovascular: Rate/Rhythm: regular rate and regular rhythm Extremities: n o edema Gastrointestinal (Abdomen): Inspection/Auscultation: normal bowel sounds P ercussion/Palpation: + ascites and + dullness to percussion; abdomen nontender Musculoskeletal: Extremities: strength 5/5 throughout Skin: no rashes, warm and dry Neurologic: pearson, limited speech, no tremor Psychiatric: Orientation: oriented to person and oriented to place Results & Data Vital Signs (Past 12 Hours) Vital Signs Temp Pulse Pulse Resp BP BP BP 05/29/23 08:07 36.7 C 78 16 95/72 L 05/29/23 04:49 109/61 05/29/23 03:44 36.6 C 79 20 97/76 L 05/29/23 00:34 05/29/23 00:34 36.9 C 81 18 121/76 05/29/23 00:08 76 05/28/23 23:20 80 05/28/23 23:10 78 15 05/28/23 23:00 85 13 05/28/23 22:50 80 15 05/28/23 22:40 82 15 05/28/23 22:30 79 15 05/28/23 22:20 83 14 05/28/23 22:16 83 05/28/23 22:10 79 16 05/28/23 22:00 96/77 L 05/28/23 22:00 82 14 05/28/23 21:50 84 16 05/28/23 21:40 85 14 05/28/23 21:30 85 19 05/28/23 21:20 81 18 05/28/23 21:10 80 05/28/23 21:00 80 05/28/23 21:00 102/82 05/28/23 20:50 85 15 Pulse Ox O2 Del Method 05/29/23 08:07 98 Room Air 05/29/23 04:49 94 Room Air 05/29/23 03:44 91 Room Air 05/29/23 00:34 Room Air 05/29/23 00:34 97 Room Air 05/29/23 00:08 05/28/23 23:20 94 05/28/23 23:10 97 05/28/23 23:00 97 05/28/23 22:50 98 05/28/23 22:40 97 05/28/23 22:30 97 05/28/23 22:20 97 05/28/23 22:16 05/28/23 22:10 97 05/28/23 22:00 05/28/23 22:00 97 05/28/23 21:50 97 05/28/23 21:40 97 05/28/23 21:30 97 05/28/23 21:20 97 05/28/23 21:10 97 05/28/23 21:00 96 05/28/23 21:00 05/28/23 20:50 98 Laboratory Results 05/29/23 05:24 05/29/23 05:24 serum osms [address] urine sodium <[address] chest PE protocol Pulmonary arteries: Unremarkable. No pulmonary embolus identified. Aorta: No acute findings. No aortic aneurysm or dissection. Lungs: Possible small calcified granulomas or other chronic calcifications in the right middle lobe. Nonspecific 4 mm nodule in the left upper lobe. Probable nonspecific 1 cm nodule in the medial left lower lobe. Mild dependent atelectasis bilaterally. Pleural space: Trace bilateral pleural effusions. No pneumothorax. Heart: Unremarkable. No cardiomegaly. No significant pericardial effusion. No evidence of RV dysfunction. Mediastinum: Mild prominence of the wall of the esophagus may represent esophagitis. Bones/joints: Degenerative changes of the spine. No acute fracture. No dislocation. Soft tissues: Unremarkable. Lymph nodes: Unremarkable. No enlarged lymph nodes. Tubes, lines and devices: Right-sided Port-A-Cath terminates in the right atrium. Other: Please see accompanying CT abdomen/pelvis for further details. IMPRESSION: 1. No pulmonary embolus identified. 2. No aortic aneurysm or dissection. 3. Mild prominence of the wall of the esophagus may represent esophagitis. 4. Trace bilateral pleural effusions. 5. Nonspecific 4 mm nodule in the left upper lobe. Probable nonspecific 1 cm nodule in the medial left lower lobe. head CT 1. No acute intracranial abnormality. 2. Chronic small vessel ischemic changes and cerebral volume loss. ct a/p w/ con Lung bases: Unremarkable. No mass. No consolidation. ABDOMEN: Liver: Extensive hypoattenuating liver metastases. Hepatomegaly. Nodular contour of the liver. Gallbladder and bile ducts: Unremarkable. No calcified stones. No ductal dilation. Pancreas: Unremarkable. No mass. No ductal dilation. Spleen: Unremarkable. No splenomegaly. Adrenals: Unremarkable. No mass. Kidneys and ureters: Small hypodense lesions in the kidneys are nonspecific. Further evaluation could be performed with ultrasound if clinically indicated. No hydronephrosis or obstructing stone. Stomach and bowel: Moderate to large amount of stool in the colon. No small bowel obstruction. Evaluation of the stomach is limited by underdistention. No mucosal thickening. PELVIS: Appendix: No findings to suggest acute appendicitis. Bladder: Unremarkable. No mass. Reproductive: Prostatomegaly. ABDOMEN and PELVIS: Intraperitoneal space: Large amount of ascites. Nonspecific 5 mm focus of enhancement along the right posterior pelvic peritoneum and more subtle foci of enhancement. There is also peritoneal enhancement along the anterior upper abdomen. Question peritoneal metastases. No free air. Bones/joints: Degenerative changes of the spine. No acute fracture. No dislocation. Soft tissues: Body wall edema. Small fat-containing left femoral hernia. Vasculature: Phleboliths in the pelvis. No abdominal aortic aneurysm. Lymph nodes: Unremarkable. No enlarged lymph nodes. IMPRESSION: 1. Extensive hypoattenuating liver metastases. Hepatomegaly. Nodular contour of the liver. 2. Large amount of ascites. 3. Nonspecific 5 mm focus of enhancement along the right posterior pelvic peritoneum and more subtle foci of enhancement. There is also peritoneal enhancement along the anterior upper abdomen. Question peritoneal metastases. 4. Prostatomegaly.
[2023-05-29 11:40] LABS: BUN Creatinine Ratio 29.2 (10-20); Calcium 7.8 mg/dl (8.6-10.3); Creatinine Clr Calc Pharmacy 51.6 ml/min; Est GFR (African American) 78.1 ml/min; Est GFR (Non-African American) 67.4 ml/min; Potassium 3.7 mmol/L (3.5-5.1)
--- NOTE | 2023-05-29 12:40 | Cardiology Consultation ---
Date of Consultation May 29, 2023 Assessment & Plan (1) Abnormal EKG: Plan Assessment: 77 year old male with metastatic colon cancer admitted for poor oral intake and profound weakness. EKG on admission, poor quality tracing suggestive of Atrial fibrillation, asking for cardiology input. Plan: 1. Abnormal EKG -initial tracing poor quality tracing suggestive of Atrial fibrillation with PVC rate 92bpm, our personal review of this EKG is poor in quality with signficant artifact and not able to determine the presents of P-waves -New ekg obtained today demonstrates sinus rhythm with PACs. Discernable P waves throughout. -Will obtain echocardiogram to assess overall structure and function. - In the event that patient would develop atrial fibrillation, fortunately he is already on therapeutic anticoagulation with Eliquis due to a history of DVTs. Case has been discussed with Dr. Rendon. Further recommendations regarding plan of care as per his assessment. I spent a total of 30 minutes on the date of service in preparation, delivery, documentation of the care provided to the patient excluding any time spent in the performance of separately billed services. SHELTON Man [facility] Cardiology [facility] Supervising Physician Co-Signing Physician Notes Supervising Physician Attestation: I have personally performed a history and physical examination on the patient. I agree with the advanced practitioner's findings and plan as documented with the following additions. Subjective: Patient resting comfortably with family EKG performed 05/29/2023 at 5:03 AM Data: Reveals sinus rhythm at 79 bpm with occasional PACs Previous EKG felt to be interpretable due to baseline artifact Telemetry consistent with sinus rhythm Echocardiogram nondiagnostic due to poor acoustic windows Assessment and Plan: No evidence of atrial fibrillation at this time. Patient already anticoagulated with Eliquis for another indication. Cardiology to sign off .Call if questions or concerns I spent a total of 20 minutes on the date of service in preparation, delivery, and documentation of the care provided to this patient, excluding any time spent in the performance of separately billed services. Shelton Rendon DO History of Present Illness Reason for Consultation: possible A-fib Requesting Physician: [facility] hospitalist Attending Physician: Dianne Cheek MD History of Present Illness HPI: patient is a 77 year old male with PMHx significant for stage 4 metastatic colon cancer to lungs and liver, DAMI, Jehovah witness, anxiety, malnutrition and prior DVT on Eliquis therapy that was admitted for increased weakness and poor oral intake. EKG obtained during course of hospitalization noted A-fib with PAC's on computer interpretation; however, significant artifact was present and cardiology was consulted for question of atrial fibrillation. patient is resting comfortably in bed. patient is very frail, weak, but appro prite in response. Denies any chest pain pressure or palpitations. No shortness of breath, pre- syncope, syncope or edema Review of telemetry shows SR with PAC's 70-80's Allergies Allergy/AdvReac Type Severity Reaction Status Date / Time prochlorperazine Allergy Severe Anaphylaxis Verified 05/29/23 00:35 [From Compazine] Home Medications Medication Instructions Recorded Confirmed Type apixaban 5 mg tablet (Eliquis) 5 mg PO BID 02/07/23 05/28/23 History escitalopram oxalate 10 mg tablet 10 mg PO DAILY 02/07/23 05/28/23 History hydrochlorothiazide 25 mg tablet 25 mg PO DAILY 02/07/23 05/28/23 History oxycodone 5 mg tablet 5 mg PO Q8 PRN Pain 02/07/23 05/28/23 History spironolactone 50 mg tablet 50 mg PO DAILY 02/07/23 05/28/23 History buspirone 10 mg tablet 10 mg PO TID 05/28/23 05/28/23 History loratadine 10 mg tablet 10 mg PO QAM 05/28/23 05/28/23 History mirtazapine 30 mg tablet 30 mg PO HS 05/28/23 05/28/23 History multivitamin 1 tab PO DAILY 05/28/23 05/28/23 History ondansetron HCl 8 mg tablet 8 mg PO Q8 PRN Nausea 05/28/23 05/28/23 History sennosides 8.6 mg tablet (senna) 8.6 mg PO BID PRN Constipation 05/28/23 05/28/23 History Patient History Medical History High transaminase levels JOY (generalized anxiety disorder) Hypertension Ambulatory dysfunction walker dependent DVT (deep venous thrombosis) Metastatic cancer colon cancer metastatic to liver, lungs Surgical History History of abdominal paracentesis Social History Smoking Status: Never smoker Second Hand Exposure: No; Do You Dip or Chew Tobacco: No; Tobacco Cessation Education Requested by Patient: No Hx Alcohol Use: No Hx Substance Use: No Preferred Language: Armenian Communication Ability: Effective Bending Shed Worker Required: No Beliefs That Will Affect Care: Mormonism Mormonism Beliefs: Religion refuses blood transfusion Current Living Situation: Spouse Other Information That Helps Us Care for You: No Feels Safe at Home: Yes Safety Concerns: Feels Safe At This Time Assistive Devices: Cane and Walker Review of Systems Review of Systems: All systems reviewed & are unremarkable except as noted in HPI & below Physical Exam Constitutional: + thin and + cachectic; no acute distres s Respiratory: normal respiratory effort, lungs clear to auscultation Cardiovascular: Rate/Rhythm: regular rate and regular rhythm Heart Sounds: normal S1 and normal S2; no murmur Vessels: no JVD Skin: no rashes, warm and dry Psychiatric: Orientation: alert and oriented x 3 Affect: + flat affect Results & Data Vital Signs (Past 12 Hours) Vital Signs Temp Pulse Resp BP BP Pulse Ox O2 Del Method 05/29/23 11:41 36.8 C 96 H 16 105/71 93 Room Air 05/29/23 08:07 36.7 C 78 16 95/72 L 98 Room Air 05/29/23 04:49 109/61 94 Room Air 05/29/23 03:44 36.6 C 79 20 97/76 L 91 Room Air 05/29/23 00:34 Room Air 05/29/23 00:34 36.9 C 81 18 121/76 97 Room Air Laboratory Results Cardiac Enzymes 05/28/23 05/29/23 Range/Units 18:15 05:24 AST 139 H 121 H (13-39) U/L Troponin I High Sens 10.9 (0-20) pg/ml Coagulation 05/28/23 Range/Units 18:15 PT 16.0 H (9.0-12.0) Seconds CBC 05/28/23 05/29/23 Range/Units 18:15 05:24 WBC 8.92 9.27 (4.8-10.8) K/ul RBC 3.29 L 2.92 L (4.70-6.10) M/uL Hgb 11.9 L 10.9 L (14.0-18.0) g/dl Hct 34.1 L 30.0 L (42.0-52.0) % Plt Count 202 170 (130-400) K/uL Neut # (Auto) 7.16 H 6.66 H (1.40-6.50) K/uL Lymph # (Auto) 0.50 L 0.82 L (1.20-3.40) K/uL Edwards # (Auto) 1.03 H 1.59 H (0.11-0.59) K/uL Eos # (Auto) 0.02 0.00 (0.00-0.50) K/uL Baso # (Auto) 0.03 0.02 (0.00-0.20) K/uL Comprehensive Metabolic Panel 05/28/23 05/29/23 05/29/23 Range/Units 18:15 05:24 10:49 Sodium 123 L 124 L 124 L (136-145) mmol/L Potassium 3.5 3.6 3.7 (3.5-5.1) mmol/L Chloride 92 L 95 L 94 L (98-107) mmol/L Carbon Dioxide 22 21 23 (21-32) mmol/L BUN 31 H 32 H 31 H (6-23) mg/dl Creatinine 1.02 0.99 1.06 (0.6-1.4) mg/dl Glucose 137 H 103 H 107 H (70-99(Fasting)) mg/dl Calcium 8.3 L 8.0 L 7.8 L (8.6-10.3) mg/dl Direct Bilirubin 1.0 H (0-0.2) mg/dl AST 139 H 121 H (13-39) U/L ALT 78 H 66 H (7-52) U/L Alkaline Phosphatase 629 H 522 H (34-104) U/L Total Protein 5.4 L 4.8 L (6.0-8.3) gm/dl Albumin 2.8 L 2.6 L (3.4-5.0) gm/dl Intake and Output 05/28/23 05/29/23 05/29/23 22:59 06:59 14:59 Intake Total 635.417 / 635.417 Output Total 1050 / 1050 Balance -414.583 / -414.583 Intake: IV 635.417 / 635.417 Sodium Chloride 0.9% 1,000 ml @ 635.417 / 635.417 125 mls/hr IV .Q8H [facility] Rx#: [id number] Output: Urine 1050 / 1050 Other: Weight 66.1 kg 62.5 kg 62.5 kg Weight Measurement Method Built in [facility] Built in [facility] Patient Weight 05/30/23 06:59 Weight 62.5 kg
[2023-05-29] MEDS: FUROSEMIDE INJ 20 MG/2 ML VIAL IV SCH (13:04)
[2023-05-29] MEDS: ALBUMIN 25% 25 GM/100 ML VIAL IV SCH ×2 (13:04→20:05)
[2023-05-29] MEDS: POTASSIUM CHLORIDE CRTAB 20 MEQ TABCR PO SCH ×2 (13:04→21:23)
--- OUTSIDE RECORDS SUMMARY | 2023-05-29 14:10 | External Medical Summary | Summary of Care ---
Author Name Unknown Organization [facility] Address [address] [place] [address] Phone [phone] Care Team Providers Care Head Char Filter Tank Tender Name Role Phone Escobar Iglesias DO Primary Care Provider Reason for Visit * Reason Onset Date Comments Palliative Care Follow-up 05/28/2023 Encounter Details Date Type Department Care Team (Late st Contact Info) Description 05/28/2023 Telephone Palliative Medicine, [facility] [address] [facility] 5th Floor [place], [place] [id number] Nan Vargas MD [address] [place] [address] Palliative Care Follow-up Allergies Active Allergy Reactions Criticality Noted Date Comments Prochlorperazine Edema face/lips/tongue High 023 BODY DYSFUNCTION documented as of this encounter (statuses as of 05/28/2023) Medications Medication Sig Dispensed Refills Start Date End Date Status Ascorbic Acid 500 MG Oral Tablet Take 1 Tablet by mouth in the morning. 0 Active Vitamin E 400 UNIT Oral Capsule (Aquasol E) Take 1 Capsule by mouth in the morning. 0 Active Senna 8.6 MG Oral Capsule Take 1 Tablet by mouth 2 times a day as needed for Constipation. 30 Capsule 1 09/27/2022 Active Azelastine HCl 0.1 % Nasal Solution Administer 1 [place] into nostril in the morning and 1 [place] before bedtime. 0 Active Escitalopram Oxalate 10 MG Oral Tablet (Lexapro) Take 1 Tablet by mouth in the morning. 0 Active Loperamide HCl 2 MG Oral Capsule (Imodium)Indication s:Chemotherapy induced diarrhea Take 1 Capsule by mouth 4 times a day as needed for Diarrhea. 60 Capsule 0 01/05/2023 Active Buprenorphine 5 MCG/HR Transdermal Patch Weekly Place 1 Patch topically on the skin once a week. 0 10/06/2022 Active hydroCHLOROthiazide 25 MG Oral Tablet (Hydrodiuril)Indica tions:Malignant ascites Take 1 Tablet by mouth in the morning. 30 Tablet 2 01/27/2023 Active Spironolactone 50 MG Oral Tablet (Aldactone)Indicati ons:Malignant ascites Take 1 Tablet by mouth in the morning. 30 Tablet 2 01/27/2023 Active Loratadine 10 MG Oral Tablet (Claritin) Take 1 Tablet by mouth in the morning. 30 Tablet 3 03/23/2023 Active oxyCODONE HCl 5 MG Oral Tablet (Oxy IR)Indications:Lisa gnant neoplasm of transverse colon (HCC),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) Take 1 Tablet by mouth every 8 hours as needed for Pain, Moderate. 60 Tablet 0 04/01/2023 Active busPIRone HCl 10 MG Oral Tablet (Buspar) Take 1 Tablet by mouth in the morning and 1 Tablet at noon and 1 Tablet before bedtime. 270 Tablet 0 04/22/2023 Active Apixaban 5 MG Oral Tablet (Eliquis)Indication s:Acute deep vein thrombosis (DVT) of iliac vein of right lower extremity (HCC) Take 5 mg (one tablet) twice daily 60 Tablet 2 04/30/2023 Active Fluticasone Propionate 50 MCG/ACT Nasal Suspension (Flonase)Indication s:Nasal congestion Administer 1 [place] into nostril in the morning. 16 g 3 05/13/2023 Active Ondansetron HCl 8 MG Oral Tablet (Zofran)Indications :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),Malignant neoplasm of transverse colon (HCC) Take 1 Tablet by mouth every 8 hours as needed for Nausea. 30 Tablet 2 05/19/2023 Active Mirtazapine 30 MG Oral Tablet (Remeron)Indication s:Anxiety disorder due to medical condition Take 1 Tablet by mouth at bedtime. 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 04/27 Dehydration 01/05/2023 Hypokalemia 01/05/2023 Metastasis to liver 10/07/2022 Malignant neoplasm of transverse colon Encounter for antineoplastic chemotherapy 2022 JOY (generalized anxiety disorder) 09/26/2022 Severe protein-energy malnutrition 09/25/2022 Abdominal mass, right upper quadrant 09/24/2022 Colonic mass 09/24/2022 Elevated LFTs 09/24/2022 Iron deficiency anemia 09/24/2022 ANTHONY (acute kidney injury) 09/24/2022 documented as of this encounter (statuses as of 05/28/2023) Social History Tobacco Use Types Packs/Day Years Used Date Smoking Tobacco: Never Smokeless Tobacco: Never Alcohol Use Standard Drinks/Week Comments Never 0 (1 standard drink = 0.6 oz pur e alcohol) Hunger Vital Sign Answer Date Recorded Within the past 12 months, y ou worried that your food would run out before you got the money to buy more. Never true 09/30/19 Within the past 12 months, t he food you bought just didn't last and you didn't have money to get more. Never true 09/29/2022 Sex and Gender Information Value Date Recorded Sex Assigned at Not on file Gender Identity Not on file Sexual Orientation Not on file Job Start Date Occupation Industry Not on file Not on file Not on file documented as of this encounter Functional Status Functional Status Response Date of Assess ment Are you deaf or do you have serious difficulty h earing? No 09/24/2022 Are you blind or do you have serious difficulty seeing, even when wearing glasses? No 09/24/2022 Do you have serious difficul ty walking or climbing stairs? (5 years old or older) No 09/24/2022 Do you have difficulty dress ing or bathing? (5 years old or older) No 09/24/2022 Because of a physical, menta l, or emotional condition, do you have difficulty doing errands alone such as visiting a doctor s office or shopping? (15 years old or older) No 09/25/19 Cognitive Status Response Date of Assessm ent Because of a physical, menta l, or emotional condition, do you have serious difficulty concentrating, remembering, or making decisions? (5 years old or older) No 09/24/2022 documented as of this encounter Miscellaneous Notes * Telephone Encounter - Charisse Fink RN - 05/28/2023 12:38 PM EST Reviewed with Dr Robbins- ok to give hydration, would like 1L NSS over 3 hours. [place] plan placed and routed for signature. Scheduling: please call patients to schedule 3 hour appt "hydration" for tomorrow. Thanks! * Telephone Encounter - Eli Mckeon CRNP - 05/28/2023 12:05 PM EST Called and spoke with , Marlen. She reiterated everything she told Jonna. Patient has no N/V, no other major changes other than progressive weakness and not eating/drinking well. thinks he may need fluids. Also thinks patient needs some rehab at SNF. I gave several options: I could see if Dr. Robbins's office could give patient fluids today or tomorrow while we wait to hearfrom SNFs about admission for rehab. If SNF calls back with a bed in the next day or two, they may be able to give him fluids there. If they feel patient needs to be seen immediately, they could go to [place] ED for treatment, then referral to SNF could be made from there. does not feel patient will want to go to the ED. She has already called several SNFs in the [place] area. [place] - does not have any beds. [facility] - waiting for call back, she has not been able to speak with anyone yet. [facility] - she is going to call them now. [place] - does not think patient will want to go there. Marlen will call us when she hears back from SNFs. She will ask them about bed availability, IV fluids if needed, and admission process. In the meantime, Dr. Robbins's office - is there any availability for IV fluids today or tomorrow if we cannot get into rehab by then? * Telephone Encounter - Jonna Roper LPN - 05/28/2023 11:17 AM EST Call from Marlen Patient's weakness continues to progress His last treatment was held d/t the weakness He can barely even get himself off the toilet Not eating much at all Trying to drink the boost-1 for sure and possibly 2 He is drinking water and trying to stay hydrated, but does not feel its enough Per , he has no strength in his arms or legs Last Thursday he did have a fall His weakness is worse since last seen by Palliative and Hem/Onc is thinking patient needs some rehab However, does not think he's ready yet for strengthening Mentioned about she feels he may needs some fluids and "help eating" She did call [facility] to see what Longterm Facilities would accept his insurance Unsure if any have any beds or would accept him-she did not call any of them [place] Dial will call to assess patient to determine most appropriate route documented in this encounter Plan of Treatment Upcoming Encounters Date Type Department Care Team (Late st Contact Info) Description 06/03/2023 10:45 AM EST Office Visit Hematology/Oncology [facility] [address] [facility] [address] Jeff Robbins MD [address] [place] [address] 06/25/2023 2:40 PM EST Telemedicine Hepatology, [facility] [address] [place] [address] Andreea Goodman DO [address] [place] [address] 07/22/2023 3:00 PM EDT Telemedicine Palliative Medicine [facility] [address] [facility] [address] Nan Vargas MD [address] [place] [address], [place] [address] Health Maintenance Due Date Last Done Comments Pneumococcal Vaccine: 65+ Years (1 - PCV) 07/15/1951 Depression Screening 1957 DTaP,Tdap,and Td Vaccines (1 - Tdap) 1964 Zoster Vaccines (1 of 2) 1964 COVID-19 Vaccine (3 - Pfizer risk series) 01/25/2021 12/28/2020, 12/07/2020 Influenza Vaccine (FLU shot) (#1) 2022 GARDASIL-HPV IMMUNIZATION SERIES Aged Out No longer eligible b ased on patient's age to complete this topic Hepatitis B Aged Out No longer eligi ble based on patient's age to complete this topic MENINGOCOCCAL (MENACTRA/MENVEO) Aged Out No longer eligible b ased on patient's age to complete this topic documented as of this encounter Medical Devices Implanted Type Area Engineering Lecturer Device Identifier Shelf Expiration Date Model / Serial / Lot Power Port 8fr Sngl Lumen Plas - [id number] Implanted:Qty : 1 on 10/22/2022 by James Baeza DO at OR [facility] Right: Chest CR BARD : PERIPHERAL VASCULAR [id number] 02/25/2024 [id number] / / [id number] documented as of this encounter Advance Directives Documents on File Type Date Recorded Patient Blending Supervisor Expl 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 Question Answer Comments Discussion of Advance Directives occurred with: Patient Care Teams Head Char Filter Tank Tender Relationship Specialty Start Date End Date Escobar Iglesias DO [address] [facility] [place] [address] PCP - General Family Medicine 10/07/22 documented as of this encounter
--- OUTSIDE RECORDS SUMMARY | 2023-05-29 14:10 | External Medical Summary | Summary of Care ---
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 [facility] What condition is the patient being seen for? Cancer Comments Nutritional advice while on chemotherapy- requesting video visit as possible, difficulty with transportation to [facility] Reason for Visit * Reason Onset Date Comments Referral 05/13/2023 glass washer Encounter Details Date Type Department Care Team ([facility] Contact Info) Description 05/13/2023 Telephone Hematology/Oncology Treatment, [place] [address] [place] [address] Jeff Robbins MD [address] [facility] [place] [address] Referral (glass washer) Allergies Active Allergy Reactions Criticality Noted Date Comments Prochlorperazine Edema face/lips/tongue High 023 BODY DYSFUNCTION documented as of this encounter (statuses as of 05/27/2023) Medications Medication Sig Dispensed Refills Start Date [...] HCl 0.1 % Nasal Solution Administer 1 [place] into nostril in the morning and 1 [place] before bedtime. 0 Active Escitalopram Oxalate 10 MG Oral Tablet (Lexapro) Take 1 Tablet by mouth in the morning. 0 Active Loperamide HCl 2 MG Oral Capsule (Imodium)Indicati ons:Chemotherapy induced diarrhea Take 1 Capsule by mouth 4 times a day as needed for Diarrhea. 60 Capsule 0 01/05/2023 Active Buprenorphine 5 MCG/HR Transdermal Patch Weekly Place 1 Patch topically on the skin once a week. 0 10/06/2022 Active hydroCHLOROthiazi de 25 MG Oral Tablet (Hydrodiuril)Josefina cations:Malignant ascites Take 1 Tablet by mouth in the morning. 30 Tablet 2 01/27/2023 Active Spironolactone 50 MG Oral Tablet (Aldactone)Indica tions:Malignant ascites Take 1 Tablet by mouth in the morning. 30 Tablet 2 01/27/2023 Active Loratadine 10 MG Oral Tablet (Claritin) Take 1 Tablet by mouth in the morning. 30 Tablet 3 03/23/2023 Active oxyCODONE HCl 5 MG Oral Tablet (Oxy IR)Indications:Ma lignant neoplasm of transverse colon (HCC),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) Take 1 Tablet by mouth every 8 hours as needed for Pain, Moderate. 60 Tablet 0 04/01/2023 Active busPIRone HCl 10 MG Oral Tablet (Buspar) Take 1 Tablet by mouth in the morning and 1 Tablet at noon and 1 Tablet before bedtime. 270 Tablet 0 04/22/2023 Active Apixaban 5 MG Oral Tablet (Eliquis)Indicati ons:Acute deep vein thrombosis (DVT) of iliac vein of right lower extremity (HCC) Take 5 mg (one tablet) twice daily 60 Tablet 2 04/30/2023 Active Fluticasone Propionate 50 MCG/ACT Nasal Suspension (Flonase)Indicati ons:Nasal congestion Administer 1 [place] into nostril in the morning. 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 30 Tablet 2 10/07/2022 4 Discontinue d(Refill) Mirtazapine 30 MG Oral Tablet (Remeron)Indicati ons:Anxiety disorder due to medical condition Take 1 Tablet by mouth at bedtime. 60 Tablet 0 03/23/2023 4 Discontinue d(Refill) documented as of this encounter (statuses as of 05/27/2023) Active Problems Problem Noted Date Diagnosed Date [...] as of this encounter (statuses as of 05/27/2023) Social History Tobacco Use Types Packs/Day Years Used Date Smoking Tobacco: Never Smokeless Tobacco: Never Alcohol Use Standard Drinks/Week Comments Never 0 (1 standard drink = 0.6 oz pur e alcohol) Hunger Vital Sign Answer Date Recorded Within the past 12 months, y ou worried that your food would run out before you got the money to buy more. Never true 09/30/19 23 Within the past 12 months, t he [...] encounter Miscellaneous Notes * Telephone Encounter - Glendy Schaeffer OSA - 05/27/2023 4:48 PM EST Pt is unable to take an appt at this time. Spouse stated " we are giving him as many foods and snacks that we can with high calories and as often as we can. Right now, he is too weak to do another appt. We will talk with Dr. Robbins during next weeks appt about a possible feeding tube." OSIRIS Carrera 05/27/2023 4:51 PM * Telephone Encounter - Evelin Chong OSA - 05/20/2023 12:16 PM EST LMOM to schedule. * Telephone Encounter - Charisse Fink RN - 05/13/2023 3:39 PM EST Patient requesting nutrition referral, placed order. [facility] nutrition: please follow up with patient for appt. Patient notes difficulty with transportation,requesting video visit if possible (if not for first visit for future ones). Thanks! documented in this encounter Plan of Treatment Upcoming Encounters Date Type Department Care Team (Late st Contact Info) Description 06/03/2023 10:45 AM EST Office Visit Hematology/Oncology [facility] [address] [place] [address] Jeff Robbins MD [address] [place] [address] 06/25/2023 2:40 PM EST Telemedicine Hepatology, [facility] [address] [facility] [place] [address] Andreea Goodman DO [facility] [address] 07/22/2023 3:00 PM EDT Telemedicine Palliative Medicine 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) Ordered: 05/13/2023 Health Maintenance Due Date Last Done Comments [...] this encounter Medical Devices Implanted Type Area Division Chief Device Identifier Shelf Expiration Date Model / Serial / Lot Power Port 8fr Sngl Lumen Plas - [id number] Implanted:Qty : 1 on 10/22/2022 by James Baeza DO at OR [facility] Right: Chest CR BARD : PERIPHERAL VASCULAR [id number] 02/25/2024 [id number] / / [id number] documented as of this encounter Visit Diagnoses Diagnosis 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 Question Answer Comments Discussion of Advance Directives occurred with: Patient Care Teams Tax Assessor Relationship Specialty Start Date End Date Escobar Iglesias DO [address] [facility] [place] [address] PCP - General Family Medicine 10/07/22 documented as of this encounter
--- OUTSIDE RECORDS SUMMARY | 2023-05-29 14:10 | External Medical Summary | Summary of Care ---
Author Name Unknown Organization [facility] Address [address] [place] [address] Phone [phone] Care Team Providers Care Prototype Deicer Assembler Name Role Phone Escobar Iglesias DO Primary Care Provider Reason for Visit * Reason Onset Date Comments Palliative Care Follow-up 05/28/2023 Encounter Details Date Type Department Care Team (Late st Contact Info) Description 05/28/2023 Telephone Palliative Medicine, [facility] [address] [facility] 5th Floor [place], [place] [phone] Nan Vargas MD [address] [place] [address] Palliative Care Follow-up Allergies Active [...] HCl 0.1 % Nasal Solution Administer 1 [place] into nostril in the morning and 1 [place] before bedtime. 0 Active Escitalopram Oxalate 10 [...] Nasal Suspension (Flonase)Indication s:Nasal congestion Administer 1 [place] into nostril in the morning. 16 g [...] encounter Miscellaneous Notes * Telephone Encounter - Jannie Melo CMA - 05/28/2023 12:51 PM EST Called and spoke with Marlen; she had just gotten off the phone with the SNF who stated that Escobar would have to be admitted to a hospital for 3 days before being able to be transferred to the SNF. She accepted the appointment for tomorrow 05/29 at 1130 but will let us know if she ends up taking him to the hospital due to weakened condition * Telephone Encounter - Charisse Fink RN - 05/28/2023 12:38 PM EST Reviewed with Dr Robbins- vivi to give hydration, would like 1L NSS over 3 hours. [place] plan placed and routed for signature. Scheduling: [...] be seen immediately, they could go to [place] ED for treatment, then referral to SNF could be made from there. does not feel patient will want to go to the ED. She has already called several SNFs in the [place] area. [facility] not [facility] beds. [facility] - waiting for call back, she has not been able to speak with anyone yet. [facility] - she is going to call them now. [facility] - does not think patient will want [...] - 05/28/2023 11:17 AM EST Call from , Marlen Patient's weakness continues to progress His [...] fluids and "help eating" She did call [facility] to see what [facility] Facilities would accept his insurance Unsure if any have any beds or would accept him-she did not call any of them [place] Dial will call to assess patient to determine most appropriate route documented in this encounter Plan of Treatment Upcoming Encounters Date Type Department Care Team (Late st Contact Info) Description 05/29/2023 11:30 AM EST Hem/Onc Treatment Hematology/Oncology Treatment, [place] [address] [place] [address] Alejandrina, Chair 2 Hem Onc Scenery [address] [place] [address] 06/03/2023 10:45 AM EST Office Visit Hematology/Oncology [facility] [address] [place] [address] Jeff Robbins MD [address] [facility], [place] [address] 06/25/2023 2:40 PM EST Telemedicine Hepatology, [facility] [address] [facility] [place] [address] Andreea Goodman DO [address] [place] [address] 07/22/2023 3:00 PM EDT Telemedicine Palliative Medicine [facility] [address] [facility] [place] [address] Nan Vargas MD [address] [place] [address] [place] [address] Health Maintenance Due Date Last Done Comments [...] this encounter Medical Devices Implanted Type Area Hadoop Software Engineer Device Identifier Shelf Expiration Date Model / Serial / Lot Power Port 8fr Sngl Lumen Plas - [id number] Implanted:Qty : 1 on 10/22/2022 by James Baeza DO at OR [facility] Right: Chest CR BARD : PERIPHERAL VASCULAR [id number] 02/25/2024 [id number] / / [id number] documented as of this encounter Advance Directives Documents on File Type Date Recorded Patient Helmet Coverer Expl 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 Question Answer Comments Discussion of Advance Directives occurred with: Patient Care Teams Prototype Deicer Assembler Relationship Specialty Start Date End Date Escobar Iglesias DO [address] [place] [address] PCP - General Family Medicine 10/07/22 documented as of this encounter
--- OUTSIDE RECORDS SUMMARY | 2023-05-29 14:10 | External Medical Summary | Summary of Care ---
Author Name Unknown Organization [facility] Address [address] [place] [address] Phone [phone] Care Team Providers Care Board Certified Behavioral Analyst Name Role Phone Escobar Iglesias DO Primary Care Provider Reason for Visit * Reason Onset Date Comments Palliative Care Follow-up 05/28/2023 Encounter Details Date Type Department Care Team (Late st Contact Info) Description 05/28/2023 Telephone Palliative Medicine, [facility] [address] [facility] 5th Floor [place], [place] [id number] Nan Vargas MD [address] [place] [address] Palliative Care Follow-up Allergies Active [...] HCl 0.1 % Nasal Solution Administer 1 [place] into nostril in the morning and 1 [place] before bedtime. 0 Active Escitalopram Oxalate 10 [...] Nasal Suspension (Flonase)Indication s:Nasal congestion Administer 1 [place] into nostril in the morning. 16 g [...] encounter Miscellaneous Notes * Telephone Encounter - Eli Mckeon CRNP [...] be seen immediately, they could go to [place] ED for treatment, then referral to SNF could be made from there. does not feel patient will want to go to the ED. She has already called several SNFs in the [place] area. [place] - does not have any beds. [facility] - waiting for call back, she has not been able to speak with anyone yet. [facility] - she is going to call them now. [place] - does not think patient will want [...] fluids and "help eating" She did call [facility] to see what [facility] would accept his insurance Unsure if any have any beds or would accept him-she did not call any of them [place] Dial will call to assess patient to determine most appropriate route documented in this encounter Plan of Treatment Upcoming Encounters Date Type Department Care Team (Late st Contact Info) Description 06/03/2023 10:45 AM EST Office Visit Hematology/[facility] [address] Jeff Robbins MD [address] [facility] [address] 06/25/2023 2:40 PM EST Telemedicine Hepatology, [facility] [address] [place] [address] Andreea Goodman DO [address] [place] [address] 07/22/2023 3:00 PM EDT Telemedicine Palliative Medicine [facility] [address] Nan Vargas MD [address] [place] [address] [place] [address] Health Maintenance Due Date Last Done [...] this encounter Medical Devices Implanted Type Area Arborist Representative Device Identifier Shelf Expiration Date Model / Serial / Lot Power Port 8fr Sngl Lumen Plas - [id number] Implanted:Qty : 1 on 10/22/2022 by James Baeza DO at OR [facility] Right: Chest CR BARD : PERIPHERAL VASCULAR [id number] 02/25/2024 [id number] / / [id number] documented as of this encounter Advance Directives Documents on File Type Date Recorded Patient Firer Boiler Expl 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 Question Answer Comments Discussion of Advance Directives occurred with: Patient Care Teams Board Certified Behavioral Analyst Relationship Specialty Start Date End Date Escobar Iglesias DO [address] [place] [address] PCP - General Family Medicine 10/07/22 documented as of this encounter
--- OUTSIDE RECORDS SUMMARY | 2023-05-29 14:10 | External Medical Summary | Summary of Care ---
Author Name Unknown Organization [facility] Address [address] [place] [address] Phone [phone] Care Team Providers Care Tripe Scraper Name Role Phone Escobar Iglesias DO Primary Care Provider Reason for Visit * Reason Onset Date Comments Medication Refill 05/21/2023 Encounter Details Date Type Department Care Team (Late st Contact Info) Description 05/21/2023 Refill Palliative Medicine, [facility] [address] [facility] 5th [place] [address] Eli Mckeon CRNP [address] [place] [address] Anxiety disorder due to medical condition Allergies Active Allergy Reactions Criticality Noted Date Comments Prochlorperazine Edema face/lips/tongue High 023 BODY DYSFUNCTION documented as of this encounter (statuses as of 05/26/2023) Medications Medication Sig Dispensed Refills Start Date [...] HCl 0.1 % Nasal Solution Administer 1 [place] into nostril in the morning and 1 [place] before bedtime. 0 Active Escitalopram Oxalate 10 [...] Nasal Suspension (Flonase)Indicati ons:Nasal congestion Administer 1 [place] into nostril in the morning. 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 30 Tablet 2 05/19/2023 Active Mirtazapine 30 MG Oral Tablet (Remeron)Indicati ons:Anxiety disorder due to medical condition Take 1 Tablet by mouth at bedtime. 60 Tablet 0 05/26/2023 Active Mirtazapine 30 MG Oral Tablet (Remeron)Indicati ons:Anxiety disorder due to medical condition Take 1 Tablet by mouth at bedtime. 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 04/27 Dehydration 01/05/2023 Hypokalemia 01/05/2023 Metastasis to liver 10/07/2022 Malignant neoplasm of transverse colon 3 Encounter for antineoplastic chemotherapy 2022 JOY (generalized anxiety disorder) 09/26/2022 Severe protein-energy malnutrition 09/25/2022 Abdominal mass, right upper quadrant 09/24/2022 Colonic mass 09/24/2022 Elevated LFTs 09/24/2022 Iron deficiency anemia 09/24/2022 ANTHONY (acute kidney injury) 09/24/2022 documented as of this encounter (statuses as of 05/26/2023) Social History Tobacco Use Types Packs/Day Years [...] encounter Miscellaneous Notes * Telephone Encounter - Jamel Wilder MD - 05/26/2023 8:11 AM EST Signed Prescriptions: Disp Refills Mirtazapine 30 MG Oral Tablet (Remeron) 60 Tab*0 Sig: Take 1 Tablet by mouth at bedtime. Authorizing Provider: JAMEL WILDER * Telephone Encounter - Anahy Snell, appellate conferee - 05/21/2023 9:05 AM EST Did you pend patient's preferred pharmacy and medication before forwarding?yes Pharmacy: [id number] [address] [facility] Pending Prescriptions: Disp Refills Mirtazapine 30 MG Oral Tablet (Remeron) 60 Tab*0 Sig: Take 1 Tablet by mouth at bedtime. Last Visit: 10/22/2022 (in office), 03/18/2023 (telemedicine) Next Visit: Visit date not found If no future appointments scheduled, and last appointment is greater than a year ago, please schedule patient for a follow-up appointment Last date the medication was ordered: 03/23/2023 Is this request for a controlled substance?No Urine Drug Screen:No results found for this or any previous visit. Patient Phone Numbers Labs: Lab Results Component Value Date/Time CREAT 0.8 05/19/2023 10:33 AM POTASSIUM 3.8 05/19/2023 10:33 AM LDLCALC 129 07/22/2022 10:44 AM ALT 39 05/19/2023 10:33 AM documented in this encounter Plan of Treatment Upcoming Encounters Date Type Department Care Team (Late st Contact Info) Description 06/03/2023 10:45 AM EST Office Visit Hematology/Oncology [facility] 200 [facility] [place] [address] Jeff Robbins MD [facility] [address] 06/25/2023 2:40 PM EST Telemedicine Hepatology, [facility] [address] [place] [address] Andreea Goodman DO [address] [place] [address] 07/22/2023 3:00 PM EDT Telemedicine Palliative Medicine [facility] 200 [facility], [place] [address] Jamel Wilder MD [address] [place] [address] Health Maintenance Due Date Last Done [...] this encounter Medical Devices Implanted Type Area Mortgage Loan Closer Device Identifier Shelf Expiration Date Model / Serial / Lot Power Port 8fr Sngl Lumen Plas - [id number] Implanted:Qty : 1 on 10/22/2022 by James Baeza DO at OR [facility] Right: Chest CR BARD : PERIPHERAL VASCULAR [id number] 02/25/2024 [id number] / / [id number] documented as of this encounter Visit Diagnoses Diagnosis 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 documented in this encounter Advance Directives Documents on File Type Date Recorded Patient Auto Service Instructor Expl 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 Question Answer Comments Discussion of Advance Directives occurred with: Patient Care Teams Tripe Scraper Relationship Specialty Start Date End Date Escobar Iglesias DO [address] [facility] [place] [address] PCP - General Family Medicine 10/07/22 documented as of this encounter
--- OUTSIDE RECORDS SUMMARY | 2023-05-29 14:10 | External Medical Summary | Summary of Care ---
Author Name Unknown Organization [facility] Address [address] [place] [address] Phone [phone] Care Team Providers Care Sheet Rock Taper Helper Name Role Phone Escobar Iglesias DO Primary Care Provider Reason for Visit * Reason Onset Date Comments Medication Refill 05/26/2023 Encounter Details Date Type Department Care Team (Late st Contact Info) Description 05/26/2023 Refill Palliative Medicine, [address] 5th Floor [place], [place] [phone] Nan Vargas MD [address] [place] [address] Allergies Active Allergy Reactions Criticality Noted Date [...] HCl 0.1 % Nasal Solution Administer 1 [place] into nostril in the morning and 1 [place] before bedtime. 0 Active Escitalopram Oxalate 10 [...] Nasal Suspension (Flonase)Indication s:Nasal congestion Administer 1 [place] into nostril in the morning. 16 g [...] encounter Miscellaneous Notes * Telephone Encounter - Eleanor Honeycutt leadership development instructor - 05/26/2023 2:16 PM EST Pt calling to request Mirtazapine 30 MG Oral Tablet (Remeron . Informed pt that RX is available at their pharmacy. Pt verbalized understanding and stated they will check with their pharmacy regardingthis medication. Thank you for your assistance Eleanor Honeycutt Topper Packer II [facility] ([facility]) (Formerly Telepharmacy) 05/26/2023,2:16 PM documented in this encounter Plan of Treatment Upcoming Encounters Date Type Department Care Team (Late st Contact Info) Description 06/03/2023 10:45 AM EST Office Visit [address]ematology/Oncology [address] [address] Jeff Robbins MD [address] [place], [place] [address] 06/25/2023 2:40 PM EST Telemedicine Hepatology, [facility] [place] [address] Andreea Goodman DO [facility] [place] [address] 07/22/2023 3:00 PM EDT Telemedicine Palliative Medicine [facility] 200 [place] [address] Nan Vargas MD [address] [place] [address] [place] [address] Health Maintenance Due Date [...] this encounter Medical Devices Implanted Type Area Sponge Press Operator Device Identifier Shelf Expiration Date Model / Serial / Lot Power Port 8fr Sngl Lumen Plas - [id number] Implanted:Qty : 1 on 10/22/2022 by James Baeza DO at OR [facility] Right: Chest CR BARD : PERIPHERAL VASCULAR [id number] 02/25/2024 [id number] / / [id number] documented as of this encounter Advance Directives Documents on File Type Date Recorded Patient Accounts Payable Analyst Expl 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 Question Answer Comments Discussion of Advance Directives occurred with: Patient Care Teams Sheet Rock Taper Helper Relationship Specialty Start Date End Date Escobar Iglesias DO [address] [place] [address] PCP - General Family Medicine 10/07/22 documented as of this encounter
--- OUTSIDE RECORDS SUMMARY | 2023-05-29 14:10 | External Medical Summary | Summary of Care ---
Author Name Unknown Organization [facility] Address [address] [place] [address] Phone [phone] Care Team Providers Care Pc Network Technician Name Role Phone Escobar Iglesias DO Primary Care Provider Reason for Visit * Reason Onset Date Comments Palliative Care Follow-up 05/28/2023 Encounter Details Date Type Department Care Team (Late st Contact Info) Description 05/28/2023 Telephone Palliative Medicine, [facility] 400 [facility] 5th Floor [place], [place] [id number] Nan Vargas MD [address] [place] [address] Palliative Care Follow-up Allergies Active [...] HCl 0.1 % Nasal Solution Administer 1 [place] into nostril in the morning and 1 [place] before bedtime. 0 Active Escitalopram Oxalate 10 [...] Nasal Suspension (Flonase)Indication s:Nasal congestion Administer 1 [place] into nostril in the morning. 16 g [...] would like 1L NSS over 3 hours. [place] plan placed and routed for signature. Scheduling: [...] be seen immediately, they could go to [place] ED for treatment, then referral to SNF could be made from there. does not feel patient will want to go to the ED. She has already called several SNFs in the [place] area. [facility] beds[facility] - waiting [facility], she has not been able to speak with anyone yet. [facility] - she is going to call them now. [place] - does not think patient will want [...] fluids and "help eating" She did call [facility] to see what [facility] Facilities would accept his insurance Unsure if any have any beds or would accept him-she did not call any of them [place] Dial will call to assess patient to determine most appropriate route documented in this encounter Plan of Treatment Upcoming Encounters Date Type Department Care Team (Late st Contact Info) Description 05/29/2023 11:30 AM EST Hem/Onc Treatment Hematology/Oncology Treatment, [place] [address] [place] [address] Alejandrina, Chair 2 Hem Onc Scenery [address] [facility] [place] [address] 06/03/2023 10:45 AM EST Office Visit Hematology/Oncology [facility] 200 [place] [address] Jeff Robbins MD 200 [facility], [place] [address] 06/25/2023 2:40 PM EST Telemedicine Hepatology, [facility] [address] [facility] [place] [address] Andreea Goodman DO [address] [place] [address] 07/22/2023 3:00 PM EDT Telemedicine Palliative Medicine [facility] [place] [address] Nan Vargas MD [address] [place] [address] [place] [address] Health Maintenance Due Date Last Done [...] this encounter Medical Devices Implanted Type Area Certified Professional Ergonomist Device Identifier Shelf Expiration Date Model / Serial / Lot Power Port 8fr Sngl Lumen Plas - [id number] Implanted:Qty : 1 on 10/22/2022 by James Baeza DO at OR [facility] Right: Chest CR BARD : PERIPHERAL VASCULAR [id number] 02/25/2024 [id number] / / [id number] documented as of this encounter Advance Directives Documents on File Type Date Recorded Patient [place] Machine Operator Expl 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 Question Answer Comments Discussion of Advance Directives occurred with: Patient Care Teams Pc Network Technician Relationship Specialty Start Date End Date Escobar Iglesias DO [address] [place] [address] PCP - General Family Medicine 10/07/22 documented as of this encounter
--- OUTSIDE RECORDS SUMMARY | 2023-05-29 14:10 | External Medical Summary | Summary of Care ---
Author Name Unknown Organization [facility] Address [address] [place] [address] Phone [phone] Care Team Providers Care Pillowcase Cleaner Name Role Phone Escobar Iglesias DO Primary Care Provider Reason for Visit * Reason Onset Date Comments Palliative Care Follow-up 05/28/2023 Encounter Details Date Type Department Care Team (Late st Contact Info) Description 05/28/2023 Telephone Palliative Medicine, [facility] 400 [facility] 5th Floor [place], [place] [phone] Nan Vargas MD [address] [place] [address] Palliative Care Follow-up Allergies Active [...] HCl 0.1 % Nasal Solution Administer 1 [place] into nostril in the morning and 1 [place] before bedtime. 0 Active Escitalopram Oxalate 10 [...] Nasal Suspension (Flonase)Indication s:Nasal congestion Administer 1 [place] into nostril in the morning. 16 g [...] be seen immediately, they could go to [place] ED for treatment, then referral to SNF could be made from there. does not feel patient will want to go to the ED. She has already called several SNFs in the [place] area. [place] [facility] - does not have any beds. [facility] - waiting for call back, she has not been able to speak with anyone yet. [facility] - she is going to call them now. [place] - does not think patient will want [...] fluids and "help eating" She did call [facility] to see what [facility] Facilities would accept his insurance Unsure if any have any beds or would accept him-she did not call any of them [place] Dial will call to assess patient to determine most appropriate route documented in this encounter Plan of Treatment Upcoming Encounters Date Type Department Care Team (Late st Contact Info) Description 06/03/2023 10:45 AM EST Office Visit Hematology/Oncology [facility] [address] [facility] [address] Jeff Robbins MD [address] [facility] [address] 06/25/2023 2:40 PM EST Telemedicine Hepatology, [facility] [address] [place] [address] Andreea Goodman DO [address] [place] [address] 07/22/2023 3:00 PM EDT Telemedicine Palliative Medicine [facility] [address] [facility] [address] Nan Vargas MD [address] [place] [address] [place] [address] Health Maintenance Due Date [...] this encounter Medical Devices Implanted Type Area Time Signal Wirer Device Identifier Shelf Expiration Date Model / Serial / Lot Power Port 8fr Sngl Lumen Plas - [id number] Implanted:Qty : 1 on 10/22/2022 by James Baeza DO at OR [facility] Right: Chest CR BARD : PERIPHERAL VASCULAR [id number] 02/25/2024 [id number] / / [id number] documented as of this encounter Advance Directives Documents on File Type Date Recorded Patient Medicaid Analyst Expl 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 Question Answer Comments Discussion of Advance Directives occurred with: Patient Care Teams Pillowcase Cleaner Relationship Specialty Start Date End Date Escobar Iglesias DO [address] [place] [address] PCP - General Family Medicine 10/07/22 documented as of this encounter
--- OUTSIDE RECORDS SUMMARY | 2023-05-29 14:11 | External Medical Summary | Summary of Care ---
Author Name Unknown Organization [facility] Address [address] [facility] [place] [address] Phone [phone] Care Team Providers Care Cash Reconciliation Specialist Name Role Phone Escobar Iglesias DO Primary Care Provider Reason for Visit * Reason Onset Date Comments Test Results 01/14/2023 Encounter Details Date Type Department Care Team (Late st Contact Info) Description 01/14/2023 Telephone Hepatology, [facility] [address] [place] [address] Andreea Goodman DO [address] [place] [address] Test Results Allergies Active Allergy Reactions Criticality Noted Date Comments Prochlorperazine Edema face/lips/tongue High 023 BODY DYSFUNCTION documented as of this encounter (statuses as of 05/22/2023) Medications Medication Sig Dispensed Refills Start Date [...] HCl 0.1 % Nasal Solution Administer 1 [place] into nostril in the morning and 1 [place] before bedtime. 0 Active Escitalopram Oxalate 10 [...] skin once a week. 0 10/06/2022 Active Losartan Potassium-HCTZ 100-25 MG Oral Tablet Take 1 Tablet by mouth in the morning. 0 3 Discontinue d(Medicatio n List Clean Up) Ondansetron HCl 8 MG Oral Tablet (Zofran)Indicatio ns: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),Malignant neoplasm of transverse colon (HCC) Take 1 Tablet by mouth every 8 hours as needed for Nausea. 30 Tablet 2 10/07/2022 4 Discontinue d(Refill) oxyCODONE HCl 5 MG Oral Tablet (Oxy IR)Indications:Me tastasis to liver (HCC),Malignant neoplasm of transverse colon (HCC) Take 1 Tablet by mouth every 4 hours as needed for Pain, Moderate. 30 Tablet 0 10/10/2022 3 Discontinue d(Refill) Mirtazapine 30 MG Oral Tablet (Remeron)Indicati ons:Anxiety disorder due to medical condition Take 1 Tablet by mouth at bedtime. 60 Tablet 0 11/12/2022 3 Discontinue d(Refill) busPIRone HCl 10 MG Oral Tablet (Buspar) Take 1 Tablet by mouth in the morning and 1 Tablet at noon and 1 Tablet before bedtime. 90 Tablet 0 12/19/2022 3 Discontinue d(Refill) Potassium Chloride Sherice ER 10 MEQ Oral Tablet Extended ReleaseIndication s:Malignant neoplasm of transverse colon (HCC),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),Hypokalemia Take 1 Tablet by mouth in the morning and 1 Tablet before bedtime. 60 Tablet 2 01/06/2023 3 Discontinue d(Medicatio n List Clean Up) documented as of this encounter (statuses as of 05/22/2023) Active Problems Problem Noted Date Diagnosed Date [...] as of this encounter (statuses as of 05/22/2023) Social History Tobacco Use Types Packs/Day Years [...] encounter Miscellaneous Notes * Telephone Encounter - Abbie Ramirez LPN - 05/22/2023 9:[address] Goodman sent a myG on 03/04/23 Looks like the patient had lab work 03/16/23 as well Did you want to check LFT now? Its been a while, not sure why this message came back into my inbox * Telephone Encounter - Jessica Hardin RN - 03/20/2023 9:[address] Goodman sent a myG on 03/04/23 Looks like the patient had lab work 03/16/23 as well Okay t wait another month to check LFT's ? * Telephone Encounter - Geeta Huntley RN - 02/18/2023 3:06 PM EDT Noted CMP was done 02/16/23 that was ordered by Dr Robbins Will pend for 1 month to have monthly LFT's lab done for Nov. 3 month Hep B serology due 04/13/23 We are to remind pt . * Telephone Encounter - Jessica Hardin RN - 01/14/2023 2:35 PM EDT Called and relayed to patient / . Asked me to pend encounter for a month and 3 months to assistthem with remembering to get lab work. Aware I can do this but they should james it on their calendar as well. Aware we can do his vaccine if they would like and okay with his insurance or he can get it at his PCP office. They mentioned rides are an issue. Will let us know if they want to get vaccine here. Pended encounter for 1 month. Please pend encounter for 3 months after we remind them at 1 month. * Telephone Encounter - Andreea Goodman DO - 01/14/2023 11:15 AM EDT Please let patient know I reviewed all his labs and everything looks good at this time. No evidenceof hepatitis B. Will plan to recheck hep B serologies in 3 months and he should have monthly LFTs monitored. No evidence of immunity to hepatitis A so recommend vaccination series through PCP. Andreea Goodman DO documented in this encounter Plan of Treatment Upcoming Encounters Date Type Department Care Team (Late st Contact Info) Description 06/03/2023 10:45 AM EST Office Visit Hematology/On[facility] [address] [facility] [address] Jeff Robbins MD [address] [facility] [address] 06/25/2023 2:40 PM EST Telemedicine Hepatology, [facility] [address] [place] [address] Andreea Goodman DO [address] [place] [address] 07/22/2023 3:00 PM EDT Telemedicine Palliative Medicine [facility] [address] [place] [address] Nan Vargas MD [address] [place] [address] [place] [address] Health Maintenance Due Date Last Done Comments [...] this encounter Medical Devices Implanted Type Area District Manager In Training Device Identifier Shelf Expiration Date Model / Serial / Lot Power Port 8fr Sngl Lumen Plas - [id number] Implanted:Qty : 1 on 10/22/2022 by James Baeza DO at OR [facility] Right: Chest CR BARD : PERIPHERAL VASCULAR [id number] 02/25/2024 [id number] / / [id number] documented as of this encounter Advance Directives Documents on File Type Date Recorded Patient Consumer Relations Specialist Expl 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 Question Answer Comments Discussion of Advance Directives occurred with: Patient Care Teams Cash Reconciliation Specialist Relationship Specialty Start Date End Date Escobar Iglesias DO [address] [place] [address] PCP - General Family Medicine 10/07/22 documented as of this encounter
--- OUTSIDE RECORDS SUMMARY | 2023-05-29 14:11 | External Medical Summary | Summary of Care ---
Author Name Unknown Organization [facility] Address [address] [place] [facility] [place] [address] Phone [phone] Care Team Providers Care Bath Design Sales Consultant Name Role Phone Escobar Iglesias DO Primary Care Provider Reason for Visit * Reason Onset Date Comments Test Results 01/14/2023 Encounter Details Date Type Department Care Team (Late st Contact Info) Description 01/14/2023 Telephone Hepatology, [facility] [address] [place] [address] Andreea Goodman DO [address] [place] [address] Test Results Allergies Active Allergy Reactions Criticality Noted Date Comments Prochlorperazine Edema face/lips/tongue High 023 BODY DYSFUNCTION documented as of this encounter (statuses as of 05/25/2023) Medications Medication Sig Dispensed Refills Start Date [...] HCl 0.1 % Nasal Solution Administer 1 [place] into nostril in the morning and 1 [place] before bedtime. 0 Active Escitalopram Oxalate 10 [...] as of this encounter (statuses as of 05/25/2023) Active Problems Problem Noted Date Diagnosed Date [...] as of this encounter (statuses as of 05/25/2023) Social History Tobacco Use Types Packs/Day Years [...] as of this encounter Miscellaneous Notes * Addendum Note - Yokasta Subramanian LPN - 05/22/2023 10:24 AM ESTAddended by: YOKASTA SUBRAMANIAN on: 05/22/2023 10:24 AM Modules accepted: Orders * Telephone Encounter - Yokasta Subramanian LPN - 05/22/2023 9:[address] Goodman sent a myG on 03/04/23 Looks like the patient had lab work and was to have repeated in 3 months time Did you want to check LFT now? I think this msg was pended to come back into our inbox around the time the pt was due for labs- it appears pt idd have a bunch of labs done - I think through dr wong.On 05/19/2023 * Telephone Encounter - Jessica Hardin RN - 03/20/2023 9:[address] Goodman sent a myG on 03/04/23 Looks like the patient had lab work 03/16/23 as well Okay t wait another month to check LFT's ? * Telephone Encounter - Geeta Huntley RN - 02/18/2023 3:06 PM EDT Noted CMP was done 02/16/23 that was ordered [address] Dr Wong Will pend for 1 month to have [...] 06/03/2023 10:45 AM EST Office Visit [facility]ematology/Oncology [facility] [address] [facility] [address] Jeff [facility] MD [address] [facility] [address] 06/25/2023 2:40 PM EST Telemedicine Hepatology, [facility] [address] [facility] [place] [address] Andreea Goodman DO [address] [place] [address] 07/22/2023 3:00 PM EDT Telemedicine Palliative Medicine [facility] [address] [facility] [address] Nan Vargas MD [address] [place] [address] [place] [address] Health Maintenance Due Date [...] this encounter Medical Devices Implanted Type Area Machine Clothing Replacer Device Identifier Shelf Expiration Date Model / Serial / Lot Power Port 8fr Sngl Lumen Plas - [id number] Implanted:Qty : 1 on 10/22/2022 by James Baeza DO at OR [facility] Right: Chest CR BARD : PERIPHERAL VASCULAR [id number] 02/25/2024 [id number] / / [id number] documented as of this encounter Advance Directives Documents on File Type Date Recorded Patient Bender Hand Expl 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 Question Answer Comments Discussion of Advance Directives occurred with: Patient Care Teams Bath Design Sales Consultant Relationship Specialty Start Date End Date Escobar Iglesias DO [address] [place] [address] PCP - General Family Medicine 10/07/22 documented as of this encounter
--- OUTSIDE RECORDS SUMMARY | 2023-05-29 14:11 | External Medical Summary | Summary of Care ---
Author Name Unknown Organization [facility] Address [address] [place] [address] Phone [phone] Care Team Providers Care Bumper Machine Operator Name Role Phone Escobar Iglesias DO Primary Care Provider Reason for Visit * Reason Onset Date Comments Appointment 05/14/2023 Encounter Details Date Type Department Care Team (Late st Contact Info) Description 05/14/2023 Telephone Hematology/Oncology [facility] Alejandrina [place]antis [address] [facility] [place] [address] Jeff Robbins MD [address] [facility] [place] [address] Appointment Allergies Active Allergy Reactions Criticality Noted Date Comments Prochlorperazine Edema face/lips/tongue High 023 BODY DYSFUNCTION documented as of this encounter (statuses as of 05/20/2023) Medications Medication Sig Dispensed Refills Start Date [...] HCl 0.1 % Nasal Solution Administer 1 [place] into nostril in the morning and 1 [place] before bedtime. 0 Active Escitalopram Oxalate 10 [...] the morning. 30 Tablet 3 03/23/2023 Active Mirtazapine 30 MG Oral Tablet (Remeron)Indicati ons:Anxiety disorder due to medical condition Take 1 Tablet by mouth at bedtime. 60 Tablet 0 03/23/2023 Active oxyCODONE HCl 5 MG Oral [...] Nasal Suspension (Flonase)Indicati ons:Nasal congestion Administer 1 [place] into nostril in the morning. 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 30 Tablet 2 10/07/2022 4 Discontinue d(Refill) documented as of this encounter (statuses as of 05/20/2023) Active Problems Problem Noted Date Diagnosed Date [...] as of this encounter (statuses as of 05/20/2023) Social History Tobacco Use Types Packs/Day Years [...] encounter Miscellaneous Notes * Telephone Encounter - Evelin Chong OSA - 05/20/2023 12:17 PM EST LMOM to schedule. * Telephone Encounter - Marcia Muhammad OSA - 05/14/2023 8:01 AM EST Nutrician-please contact patient in regards to Nutritional advice while on chemotherapy- requestingvideo visit as possible, difficulty with transportation to appts Thank you documented in this encounter Plan of Treatment Upcoming Encounters Date Type Department Care Team (Late st Contact Info) Description 06/03/2023 10:45 AM EST Office Visit Hematology/Oncology [facility] [address] [facility] [address] Jeff Robbins MD [address] [facility] [address] 06/25/2023 2:40 PM EST Telemedicine Hepatology, [facility] [address] [facility] [address] Andreea Goodman DO [address] [place] [address] 07/22/2023 3:00 PM EDT Telemedicine Palliative Medicine [facility] [address] [place] [address] Nan Vargas MD [address] [place] [address] [place] [address] Health Maintenance Due Date [...] this encounter Medical Devices Implanted Type Area Milieu Counselor Device Identifier Shelf Expiration Date Model / Serial / Lot Power Port 8fr Sngl Lumen Plas - [id number] Implanted:Qty : 1 on 10/22/2022 by James Baeza DO at OR [facility] Right: Chest CR BARD : PERIPHERAL VASCULAR [id number] 02/25/2024 [id number] / / [id number] documented as of this encounter Advance Directives Documents on File Type Date Recorded Patient Barrel Maker Expl 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 Question Answer Comments Discussion of Advance Directives occurred with: Patient Care Teams Bumper Machine Operator Relationship Specialty Start Date End Date Escobar Iglesias DO [address] [facility] [place] [address] PCP - General Family Medicine 10/07/22 documented as of this encounter
--- OUTSIDE RECORDS SUMMARY | 2023-05-29 14:11 | External Medical Summary ---
Author Name Unknown Address Unknown Organization K01:[facility] [address] [place] [address] Laboratory Report Ordering Provider Test Date Status RASHAAD BARAHONA 05/19/2023 10:33:04 Final Observation Date Value Abnormality Reference (Units ) Status Ferritin 05/19/2023 10:33:04 745 Above high normal 30 -400 (ng/mL) Final Performing Location [facility] [address] [place] [address]
--- OUTSIDE RECORDS SUMMARY | 2023-05-29 14:11 | External Medical Summary ---
Author Name Unknown Address Unknown Organization K09:[facility] - [address] [place] [address] Laboratory Report Ordering Provider Test Date Status RASHAAD BARAHONA 05/19/2023 10:33:04 Final Observation Date Value Abnormality Reference (Units ) Status BUN 05/19/2023 10:33:04 24 Above high normal 6-20 (mg/dL) Final Creatinine 05/19/2023 10:33:04 0.8 0.6-1.2 (mg/dL) Final Glomerular filtration rate/1.73 sq M.predicted [Volume Rate/Area] in Serum, Plasma or Blood by Creatinine-based formula (CKD-EPI) 05/19/2023 10:33:04 90 >=60 (mL/min) Final eGFR is calculated based on the CKD-EPI 2020 equation SODIUM 05/19/2023 10:33:04 131 Below low normal 135 -146 (mmol/L) Final Potassium 05/19/2023 10:33:04 3.8 3.5-5.1 (m mol/L) Final Cl 05/19/2023 10:33:04 97 Below low normal 98- 107 (mmol/L) Final CO2 05/19/2023 10:33:04 22 22-32 (mmo l/L) Final Anion gap 05/19/2023 10:33:04 12 7-15 (mmol /L) Final Glucose 05/19/2023 10:33:04 164 Above high normal 70 -120 (mg/dL) Final Albumin 05/19/2023 10:33:04 3.2 Below low normal 3.8 -5.0 (g/dL) Final AST (Aspartate aminotransferase) 05/19/2023 10:33:04 86 Above high normal 10-50 (U/L) Final Alk Phos 05/19/2023 10:33:04 481 Above high normal 35 -130 (U/L) Final Bilirubin, Total 05/19/2023 10:33:04 1.4 Above high no rmal <=1.2 (mg/dL) Final Calcium 05/19/2023 10:33:04 9.2 8.4-10.2 ( mg/dL) Final Protein 05/19/2023 10:33:04 6.1 6.0-8.3 (g /dL) Final ALT (Alanine aminotransferase) 05/19/2023 10:33:04 39 10-50 (U/L) Tres ordonez Performing Location [facility] [place] [address]
--- OUTSIDE RECORDS SUMMARY | 2023-05-29 14:11 | External Medical Summary | Summary of Care ---
Author Name Unknown Organization [facility] Address [address] [place] [address] Phone [phone] Care Team Providers Care Regional Sales Manager Name Role Phone Escobar Iglesias DO Primary Care Provider Reason for Visit * Reason Onset Date Comments Precert Future 05/08/2023 Vectibix/ irinot ecan Encounter Details Date Type Department Care Team (Late st Contact Info) Description 05/08/2023 Telephone Hematology/Oncology Treatment, [facility] [address] [place] [address] Jeff Robbins MD [address] [facility] [place] [address] Precert Future (Vectibix/ irinotecan) Allergies Active Allergy Reactions Criticality Noted Date Comments Prochlorperazine Edema face/lips/tongue High 023 BODY DYSFUNCTION documented as of this encounter (statuses as of 05/14/2023) Medications Medication Sig Dispensed Refills Start Date [...] for Constipation. 30 Capsule 1 09/27/2022 Active Ondansetron HCl 8 MG Oral Tablet (Zofran)Indications :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),Malignant neoplasm of transverse colon (HCC) Take 1 Tablet by mouth every 8 hours as needed for Nausea. 30 Tablet 2 10/07/2022 Active Azelastine HCl 0.1 % Nasal Solution Administer 1 [place] into nostril in the morning and 1 [place] before bedtime. 0 Active Escitalopram Oxalate 10 [...] 03/23/2023 Active Mirtazapine 30 MG Oral Tablet (Remeron)Indication [...] twice daily 60 Tablet 2 04/30/2023 Active documented as of this encounter (statuses as of 05/14/2023) Active Problems Problem Noted Date Diagnosed Date [...] as of this encounter (statuses as of 05/14/2023) Social History Tobacco Use Types Packs/Day Years [...] Telephone Encounter - Charisse Fink RN - 05/14/2023 8:42 AM EST Referral entered. * Telephone Encounter - Charisse Fink RN - 05/08/2023 2:17 PM EST Order received for vectibix/ irinotecan. [place] plan built and routed for signature. Waiting for auth. Consent signed 05/07/22. Hep B labs 03/02/23. Nurse education 05/19/23. Patient is already scheduled for first treatment 05/19/23. documented in this encounter Plan of Treatment Upcoming Encounters Date Type Department Care Team (Late st Contact Info) Description 05/19/2023 10:30 AM EST Laboratory [facility] [address] [facility] [id number] Alejandrina, Lab Scenery [address] [place], [place] [address] 05/19/2023 10:45 AM EST Nurse Only Hematology/Oncology [facility] [address] [place], [place] [address] Alejandrina, Nurse Hem Onc Scenery [address] [facility] [address] 05/19/2023 11:45 AM EST Hem/Onc Treatment Hematology/Oncology Treatment, [place] [facility] [address] [place] [address] Alejandrina, Chair 8 Hem Onc Scenery [address] [place] [address] 06/25/2023 2:40 PM EST Telemedicine Hepatology, [facility] [address] [place] [address] Andreea Goodman DO [address] [place] [address] Health Maintenance Due Date Last Done Comments [...] this encounter Medical Devices Implanted Type Area Hot Iron Worker Device Identifier Shelf Expiration Date Model / Serial / Lot Power Port 8fr Sngl Lumen Plas - [id number] Implanted:Qty : 1 on 10/22/2022 by James Baeza DO at OR [facility] Right: Chest CR BARD : PERIPHERAL VASCULAR [id number] 02/25/2024 [id number] / / [id number] documented as of this encounter Advance Directives Documents on File Type Date Recorded Patient Supervisor Boilermaking Shop Expl 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 Question Answer Comments Discussion of Advance Directives occurred with: Patient Care Teams Regional Sales Manager Relationship Specialty Start Date End Date Escobar Iglesias DO [address] [facility] [place] [address] PCP - General Family Medicine 10/07/22 documented as of this encounter
--- OUTSIDE RECORDS SUMMARY | 2023-05-29 14:11 | External Medical Summary | Summary of Care ---
Author Name Unknown Organization [facility] Address [address] [facility] [place] [address] Phone [phone] Care Team Providers Care Criminalist Name Role Phone Escobar Iglesias DO Primary Care Provider Encounter Details Date Type Department Care Team (Late st Contact Info) Description 05/14/2023 Telephone [facility] Chaudhry [address] [place] [address] Kian Cloud DO [address] [facility] [address] Allergies Active Allergy Reactions Criticality Noted Date [...] HCl 0.1 % Nasal Solution Administer 1 [place] into nostril in the morning and 1 [place] before bedtime. 0 Active Escitalopram Oxalate 10 [...] Nasal Suspension (Flonase)Indication s:Nasal congestion Administer 1 [place] into nostril in the morning. 16 g 3 05/13/2023 Active documented as of this encounter (statuses [...] encounter Miscellaneous Notes * Telephone Encounter - Corry Aj, OSIRIS - 05/14/2023 1:05 PM EST Attempted to contact patient. Patient should start using Refresh or Systane artificial tears 4 times per day. He will need schedule schedule him in 2-3 weeks after using eye drops, and if no better -he should come in to be evaluated. Left voicemail with direct phone number for him to return my call. OSIRIS Hendrix 05/14/2023 1:06 PM documented in this encounter Plan of Treatment Upcoming Encounters Date Type Department Care Team (Late st Contact Info) Description 05/19/2023 10:30 AM EST Laboratory Laboratory Scenery [place] [address] [place] [phone] Alejandrina, Lab Scenery [address] [facility] [place] [address] 05/19/2023 10:45 AM EST Nurse Only Hematology/Oncology [facility] [place] [address] [place] [address] Alejandrina, Nurse Hem Onc Scenery [address] [place] [address] 05/19/2023 11:45 AM EST Hem/Onc Treatment Hematology/Oncology Treatment, [place] [address] [place] [address] Alejandrina, Chair 8 Hem Onc Scenery [address] [place] [address] 06/25/2023 2:40 PM EST Telemedicine Hepatology, [facility] [address] [place] [address] Andreea Goodman DO [address] [place] [address] Health Maintenance Due Date Last Done Comments [...] this encounter Medical Devices Implanted Type Area Guest Experience Captain Device Identifier Shelf Expiration Date Model / Serial / Lot Power Port 8fr Sngl Lumen Plas - [id number] Implanted:Qty : 1 on 10/22/2022 by James Baeza DO at OR [facility] Right: Chest CR BARD : PERIPHERAL VASCULAR [id number] 02/25/2024 [id number] / / [id number] documented as of this encounter Advance Directives Documents on File Type Date Recorded Patient Counseling Director Expl 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 Question Answer Comments Discussion of Advance Directives occurred with: Patient Care Teams Criminalist Relationship Specialty Start Date End Date Escobar Iglesias DO [address] [facility] [place] [address] PCP - General Family Medicine 10/07/22 documented as of this encounter
--- OUTSIDE RECORDS SUMMARY | 2023-05-29 14:11 | External Medical Summary | Summary of Care ---
Author Name Unknown Organization [facility] Address [address] [place] [address] Phone [phone] Care Team Providers Care Poultry Dresser Name Role Phone Escobar Iglesias DO Primary Care Provider Encounter Details Date Type Department Care Team (Late st Contact Info) Description 05/19/2023 10:45 AM EST Nurse Only Hematology/Oncology [facility] [place] [address] [place] [address] Alejandrina, Nurse Hem Onc Scen[address] [place] [address] Allergies Active Allergy Reactions Criticality Noted Date [...] HCl 0.1 % Nasal Solution Administer 1 [place] into nostril in the morning and 1 [place] before bedtime. 0 Active Escitalopram Oxalate 10 [...] Nasal Suspension (Flonase)Indicati ons:Nasal congestion Administer 1 [place] into nostril in the morning. 16 g [...] on file documented as of this encounter Last Filed Vital Signs Vital Sign Reading Time Taken Comments Blood Pressure 98/62 05/19/2023 11:24 AM EST Pulse 87 05/19/2023 11:24 AM EST Temperature 36.3 C (97.4 F) 05/19/2023 11:[address] Respiratory Rate 20 05/19/2023 11:24 AM EST Oxygen Saturation 96% 05/19/2023 11:24 AM EST RA Inhaled Oxygen Concentration - - Weight 59.6 kg (131 lb 8 oz) 05/19/2023 11:24 AM EST Height - - Body Mass Index 21.23 10/22/2022 12:03 PM EDT documented in this encounter Functional Status Functional Status Response [...] No 09/24/2022 documented as of this encounter Nursing Notes * Charisse Fink, RN - 05/22/2023 4:55 PM EST Patient unsteady, dizzy when turning his head, reports not really eating or drinking. Reports he isin bed 20 hours per day, can't keep anything down. Dr Robbins in to see patient- will HOLD treatment. BP 98/62, HR 87, 96% RA documented in this encounter Plan of Treatment Upcoming Encounters Date Type Department Care Team (Late st Contact Info) Description 06/03/2023 10:45 AM EST Office Visit Hematology/Oncology [facility] [address] Jeff Robbins MD [facility] [address] 06/25/2023 2:40 PM EST Telemedicine Hepatology, [facility] [address] [place] [address] Andreea Goodman DO [address] [place] [address] 07/22/2023 3:00 PM EDT Telemedicine Palliative Medicine [facility] [address] [place] [address] Nan Vargas MD [address] [place] [address] [place] [address] Health Maintenance Due Date [...] this encounter Medical Devices Implanted Type Area Editor School Photograph Device Identifier Shelf Expiration Date Model / Serial / Lot Power Port 8fr Sngl Lumen Plas - [id number] Implanted:Qty : 1 on 10/22/2022 by James Baeza, at OR [facility] Right: Chest CR BARD : PERIPHERAL VASCULAR [id number] 02/25/2024 [id number] / / [id number] documented as of this encounter Results * FOLIC ACID (05/19/2023 10:33 AM EST) Folic Acid >20.0 >4.5 ng/mL 05/19/2023 10:36 PM EST [facility] Blood Venous blood specimen / Unknown Venipuncture / Unknown 05/19/2023 10:33 AM EST 05/19/2023 10:33 AM EST Jeff Robbins MD LAB BLOOD ORDERABLES [facility] 100 [facility] [address] * VITAMIN B12 (05/19/2023 10:33 AM EST) Vitamin B12 1,150 232 - 1,245 pg/mL 05/19/2023 10:36 PM EST [facility] Blood Venous blood specimen / Unknown Venipuncture / Unknown 05/19/2023 10:33 AM EST 05/19/2023 10:33 AM EST Jeff Robbins MD LAB BLOOD ORDERABLES Performing Organization Address [facility]/ZIP Co de Phone Number LAB[facility]ATORY [facility] [address] [place] [address] * IRON SCREEN, INCLUDING TIBC (05/19/2023 10:33 AM EST) Iron 97 45 - 176 ug/dL 05/19/2023 10:05 PM EST [facility] Iron Binding Capacity 266 250 - 425 ug/dL 05/19/2023 10:05 PM EST [facility] Transferrin Saturation Percent 36 15 - 55 % 05/19/2023 10:05 PM EST [facility] Blood Venous blood specimen / Unknown Venipuncture / Unknown 05/19/2023 10:33 AM EST 05/19/2023 10:33 AM EST Jeff Robbins MD LAB BLOOD ORDERABLES Performing Organization Address [facility] de Phone Number [facility]ORY [facility] [address] [place] [address] * (ABNORMAL) FERRITIN (05/19/2023 10:33 AM EST) Ferritin 745(H) 30 - 400 ng/mL 05/19/2023 10:36 PM EST [facility] Blood Venous blood specimen / Unknown Venipuncture / Unknown 05/19/2023 10:33 AM EST 05/19/2023 10:33 AM EST Jeff Robbins MD LAB BLOOD ORDERABLES Performing Organization Address [facility] Co de Phone Number [facility] [address] [place] [address] documented in this encounter Visit Diagnoses Diagnosis 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 Question Answer Comments Discussion of Advance Directives occurred with: Patient Care Teams Poultry Dresser Relationship Specialty Start Date End Date Escobar Iglesias DO [address] [place] [address] PCP - General Family Medicine 10/07/22 documented as of this encounter
--- OUTSIDE RECORDS SUMMARY | 2023-05-29 14:11 | External Medical Summary | Summary of Care ---
Author Name Unknown Organization [facility] Address [address] [place] [address] Phone [phone] Care Team Providers Care Aircraft Maintenance Instructor Name Role Phone Escobar Iglesias DO Primary Care Provider Reason for Visit * Reason Onset Date Comments Medication Refill 05/19/2023 Encounter Details Date Type Department Care Team (Late st Contact Info) Description 05/19/2023 Refill Hematology/Oncology Treatment, [place] [address] 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 0 Active Escitalopram Oxalate 10 [...] Nasal Suspension (Flonase)Indicati ons:Nasal congestion Administer 1 [place] into nostril in the morning. 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 30 Tablet 2 10/07/2022 4 Discontinue d(Refill) documented as of this encounter (statuses as of 05/19/2023) Active Problems Problem Noted Date Diagnosed Date [...] as of this encounter (statuses as of 05/19/2023) Social History Tobacco Use Types Packs/Day Years [...] encounter Miscellaneous Notes * Telephone Encounter - Jeff Robbins MD - 05/19/2023 1:52 PM EST E-prescribed Zofran * Telephone Encounter - Charisse Fink RN - 05/19/2023 11:04 AM EST Pended zofran documented in this encounter Plan of Treatment Upcoming Encounters Date Type Department Care Team (Late st Contact Info) Description 06/03/2023 10:45 AM EST Office Visit Hematology/Oncology [address] [address] Jeff [facility] [address] 06/25/2023 2:40 PM EST Telemedicine Hepatology, [facility] 132 [facility] [place] [address] Andreea Goodman DO [address] [place] [address] 07/22/2023 3:00 PM EDT Telemedicine Palliative Medicine [facility] [address] Nan Vargas MD [address] [place] [address] [place] [address] Health Maintenance Due Date [...] this encounter Medical Devices Implanted Type Area Belt Operator Device Identifier Shelf Expiration Date Model / Serial / Lot Power Port 8fr Sngl Lumen Plas - [id number] Implanted:Qty : 1 on 10/22/2022 by James Baeza DO at OR [facility] Right: Chest CR BARD : PERIPHERAL VASCULAR [id number] 02/25/2024 [id number] / / [id number] documented as of this encounter Visit Diagnoses Diagnosis 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) 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 Question Answer Comments Discussion of Advance Directives occurred with: Patient Care Teams Aircraft Maintenance Instructor Relationship Specialty Start Date End Date Escobar Iglesias DO [address] [place] [address] PCP - General Family Medicine 10/07/22 documented as of this encounter
--- OUTSIDE RECORDS SUMMARY | 2023-05-29 14:11 | External Medical Summary ---
Author Name Unknown Address Unknown Organization [id number]:[facility] [place] [address] [place] [address] Laboratory Report Ordering Provider Test Date Status RASHAAD BARAHONA 05/19/2023 10:33:04 Final Observation Date Value Abnormality Reference (Units ) Status Folic Acid 05/19/2023 10:33:04 >20.0 >4.5 (ng/ mL) Final Performing Location [facility] - [address] [place] [address]
--- OUTSIDE RECORDS SUMMARY | 2023-05-29 14:11 | External Medical Summary ---
Author Name Unknown Address Unknown Organization K01:LABORATORY [facility] - [address] [place] [address] Laboratory Report Ordering Provider Test Date Status RASHAAD BARAHONA 05/19/2023 10:33:04 Final Observation Date Value Abnormality Reference (Units ) Status Iron 05/19/2023 10:33:04 97 45-176 (ug /dL) Final Iron-binding capacity 05/19/2023 10:33:04 266 250-425 (ug/dL) Final Transferrin Sat % 05/19/2023 10:33:04 36 15 -55 (%) Final Performing Location LABORATORY [facility] - [address] [place] [address]
--- OUTSIDE RECORDS SUMMARY | 2023-05-29 14:11 | External Medical Summary ---
Author Name Unknown Address Unknown Organization K09:[facility] [place] [address] Laboratory Report Ordering Provider Test Date Status RASHAAD BARAHONA 05/19/2023 10:33:04 Final Observation Date Value Abnormality Reference (Units ) Status WBC, Total 05/19/2023 10:33:04 7.66 4.00-10.8 0 (K/uL) Final RBC 05/19/2023 10:33:04 2.87 4.50-5.25 (M/uL) Final Hemoglobin 05/19/2023 10:33:04 10.7 Below low normal 14 .0-16.8 (g/dL) Final HCT 05/19/2023 10:33:04 31.2 Below low normal 40. 0-48.4 (%) Final MCV 05/19/2023 10:33:04 108.7 82.0-99.5 (fL) Final MCH 05/19/2023 10:33:04 37.3 27.0-34.0 (pg) Final MCHC 05/19/2023 10:33:04 34.3 32.0-36.0 (g/dL) Final RDW 05/19/2023 10:33:04 18.5 11.5-15.5 (%) Final Platelets 05/19/2023 10:33:04 206 140-400 (K /uL) Final MPV 05/19/2023 10:33:04 9.1 6.6-11.1 ( fL) Final Performing Location [facility]ATORY [place] [address]
--- OUTSIDE RECORDS SUMMARY | 2023-05-29 14:11 | External Medical Summary | Summary of Care ---
Author Name Unknown Organization [facility] Address [address] [place] [address] Phone [phone] Care Team Providers Care Street Photographer Name Role Phone Escobar Iglesias DO Primary Care Provider Reason for Visit * Reason Onset Date Comments Appointment 05/14/2023 Encounter Details Date Type Department Care Team (Late st Contact Info) Description 05/14/2023 Telephone Hematology/Oncology [facility] [place] 200 [facility] [place] [address] Jeff Robbins MD 200 [facility] [place] [address] Appointment Allergies Active Allergy Reactions Criticality Noted Date Comments Prochlorperazine Edema face/lips/tongue High 023 BODY DYSFUNCTION documented as of this encounter (statuses as of 05/18/2023) Medications Medication Sig Dispensed Refills Start Date [...] HCl 0.1 % Nasal Solution Administer 1 [place] into nostril in the morning and 1 [place] before bedtime. 0 Active Escitalopram Oxalate 10 [...] Nasal Suspension (Flonase)Indication s:Nasal congestion Administer 1 [place] into nostril in the morning. 16 g 3 05/13/2023 Active documented as of this encounter (statuses as of 05/18/2023) Active Problems Problem Noted Date Diagnosed Date [...] as of this encounter (statuses as of 05/18/2023) Social History Tobacco Use Types Packs/Day Years [...] encounter Miscellaneous Notes * Telephone Encounter - Marcia Muhammad OSA - 05/14/2023 8:01 AM EST Nutrician-please contact patient in regards to Nutritional advice while on chemotherapy- requestingvideo visit as possible, difficulty with [facility] Thank you documented in this encounter Plan of Treatment Upcoming Encounters Date Type Department Care Team (Late st Contact Info) Description 05/19/2023 10:30 AM EST Laboratory Laboratory [place] [address] [place] [address] Alejandrina, Lab [address]en[address] [facility] [place] [address] 05/19/2023 10:45 AM EST Nurse Only Hematology/Oncology [place] [address] [place] [address] Alejandrina, Nurse Hem Onc Scen[address] [place] [address] 05/19/2023 11:45 AM EST Hem/Onc Treatment Hematology/Oncology Treatment, [place] [address] [place] [address] Alejandrina, Chair 8 Hem Onc Scen[address] [place] [address] 06/25/2023 2:40 PM EST Telemedicine Hepatology, [facility] [address] [place] [address] Andreea Goodman DO [address] [place] [address] Health Maintenance Due Date Last Done Comments [...] this encounter Medical Devices Implanted Type Area Incident Response Coordinator Device Identifier Shelf Expiration Date Model / Serial / Lot Power Port 8fr Sngl Lumen Plas - [id number] Implanted:Qty : 1 on 10/22/2022 by James Baeza DO at OR [facility] Right: Chest CR BARD : PERIPHERAL VASCULAR [id number] 02/25/2024 [id number] / / [id number] documented as of this encounter Advance Directives Documents on File Type Date Recorded Patient Die Cleaner Expl 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 Question Answer Comments Discussion of Advance Directives occurred with: Patient Care Teams Street Photographer Relationship Specialty Start Date End Date Escobar Iglesias DO 1400 [facility] [place] [address] PCP - General Family Medicine 10/07/22 documented as of this encounter
--- OUTSIDE RECORDS SUMMARY | 2023-05-29 14:11 | External Medical Summary | Summary of Care ---
Author Name Unknown Organization [facility] Address [address] [place] [address] Phone [phone] Care Team Providers Care Longwall Foreman Name Role Phone Escobar Iglesias DO Primary Care Provider Reason for Visit * Reason Onset Date Comments Palliative Care Follow-up 05/18/2023 Encounter Details Date Type Department Care Team (Late st Contact Info) Description 05/18/2023 Telephone Palliative Medicine, [facility] [place] 400 [facility] 5th [place] [address] Nan Vargas MD [address] [place] [address] Palliative Care Follow-up Allergies Active [...] HCl 0.1 % Nasal Solution Administer 1 [place] into nostril in the morning and 1 [place] before bedtime. 0 Active Escitalopram Oxalate 10 [...] Nasal Suspension (Flonase)Indication s:Nasal congestion Administer 1 [place] into nostril in the morning. 16 g [...] encounter Miscellaneous Notes * Telephone Encounter - Jonna Roper LPN - 05/18/2023 10:38 AM EST MyG sent with upcoming appointment info documented in this encounter Plan of Treatment Upcoming Encounters Date Type Department Care Team (Late st Contact Info) Description 05/19/2023 10:30 AM EST Laboratory Laboratory [facility] 200 [facility] [place] [address] Alejandrina, Lab [address] [place] [address] 05/19/2023 10:45 AM EST Nurse Only Hematology/Oncology [address] [place] [address] Alejandrina, Nurse Hem Onc [address] [place] [address] 05/19/2023 11:45 AM EST Hem/Onc Treatment Hematology/Oncology Treatment, [address], [place] [address] Alejandrina, Chair 8 Hem Onc [address] [place] [address] 06/25/2023 2:40 PM EST Telemedicine Hepatology, [facility] [address] [place] [address] Andreea Goodman DO [address] [place] [address] 07/22/2023 3:00 PM EDT Telemedicine Palliative Medicine [facility] 200 [facility] [address] Nan Vargas MD [address] [place], [place] [address] [address] Health Maintenance Due Date Last Done [...] this encounter Medical Devices Implanted Type Area Stone Rigger Device Identifier Shelf Expiration Date Model / Serial / Lot Power Port 8fr Sngl Lumen Plas - [id number] Implanted:Qty : 1 on 10/22/2022 by James Baeza DO at OR [facility] Right: Chest CR BARD : PERIPHERAL VASCULAR [id number] 02/25/2024 [id number] / / [id number] documented as of this encounter Advance Directives Documents on File Type Date Recorded Patient Head Filter Press Tender Expl 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 Question Answer Comments Discussion of Advance Directives occurred with: Patient Care Teams Longwall Foreman Relationship Specialty Start Date End Date Escobar Iglesias DO [address] [facility] [place] [address] PCP - General Family Medicine 10/07/22 documented as of this encounter
--- OUTSIDE RECORDS SUMMARY | 2023-05-29 14:11 | External Medical Summary | Summary of Care ---
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 [facility] What condition is the patient being seen for? Cancer Comments Nutritional advice while on chemotherapy- requesting video visit as possible, difficulty with transportation to [facility] Reason for Visit * Reason Onset Date Comments Referral 05/13/2023 postal service window clerk Encounter Details Date Type Department Care Team ([facility] Contact Info) Description 05/13/2023 Telephone Hematology/Oncology Treatment, [place] [address] [place] [address] Jeff Robbins MD 200 [facility] [place] [address] Referral (postal service window clerk) Allergies Active Allergy Reactions Criticality Noted Date [...] HCl 0.1 % Nasal Solution Administer 1 [place] into nostril in the morning and 1 [place] before bedtime. 0 Active Escitalopram Oxalate 10 [...] Nasal Suspension (Flonase)Indicati ons:Nasal congestion Administer 1 [place] into nostril in the morning. 16 g [...] 06/03/2023 10:45 AM EST Office Visit Hematology/Oncology [place] [address] [place] [address] Jeff Robbins MD [address] [place] [address] 06/25/2023 2:40 PM EST Telemedicine Hepatology, [facility] [address] [place] [address] Andreea Goodman DO [address] [place] [address] 07/22/2023 3:00 PM EDT Telemedicine Palliative Medicine [facility] [address] [place] [address] Nan Vargas MD [address] [place] [address] Scheduled Referrals Name Type Priority Associated Diagnoses [...] this encounter Medical Devices Implanted Type Area Career Manager Device Identifier Shelf Expiration Date Model / Serial / Lot Power Port 8fr Sngl Lumen Plas - [id number] Implanted:Qty : 1 on 10/22/2022 by James Baeza DO at OR [facility] Right: Chest CR BARD : PERIPHERAL VASCULAR [id number] 02/25/2024 [id number] / / [id number] documented as of this encounter Visit Diagnoses Diagnosis 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 Question Answer Comments Discussion of Advance Directives occurred with: Patient Care Teams Major League Baseball Umpire Relationship Specialty Start Date End Date Escobar Iglesias DO 1400 [facility] [place] [address] PCP - General Family Medicine 10/07/22 documented as of this encounter
--- OUTSIDE RECORDS SUMMARY | 2023-05-29 14:11 | External Medical Summary ---
Author Name Unknown Address Unknown Organization K09:[facility] [place] [address] Laboratory Report Ordering Provider Test Date Status RASHAAD BARAHONA 05/19/2023 10:33:04 Final Observation Date Value Abnormality Reference (Units ) Status SYNC LEUKOCYTES IN BLOOD BY AUTOMATED COUNT 05/19/2023 10:33:04 7.66 4.00-10.80 (K/uL) Final Segs 05/19/2023 10:33:04 76.6 Above high normal 40.0-75.0 (%) Final Lymphs % 05/19/2023 10:33:04 6.9 Below low normal 18.0-42.0 (%) Final Monos 05/19/2023 10:33:04 16.1 Above high normal 1.0-11.0 (%) Final Eosinophils 05/19/2023 10:33:04 0.1 0.0-6.0 (%) Final Basos 05/19/2023 10:33:04 0.3 0.0-2.0 (%) Final Absolute Segs 05/19/2023 10:33:04 5.87 1.80-7.70 (K/uL) Final Lymphs, absolute 05/19/2023 10:33:04 0.53 Below low normal 1.00-4.80 (K/ul) Final Monos, Abs 05/19/2023 10:33:04 1.23 Above high normal 0.00-1.10 (K/uL) Final Eos, Abs 05/19/2023 10:33:04 0.01 0.00-0.70 (K/uL) Final Basos, Abs 05/19/2023 10:33:04 0.02 0.00-0.20 (K/uL) Final Performing Location [facility] [place] [address]
--- OUTSIDE RECORDS SUMMARY | 2023-05-29 14:11 | External Medical Summary | Summary of Care ---
Author Name Unknown Organization [facility] Address [address] [place] [address] Phone [phone] Care Team Providers Care Client Services Coordinator Name Role Phone Escobar Iglesias DO Primary Care Provider Reason for Visit * Reason Comments Outpatient Testing Encounter Details Date Type Department Care Team (Late st Contact Info) Description 05/19/2023 10:30 AM EST Laboratory Laboratory Scenery [facility] [address] [place] [address] [facility] Lab Scenery [address] [place] [address] 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); Malignant neoplasm of [...] HCl 0.1 % Nasal Solution Administer 1 [place] into nostril in the morning and 1 [place] before bedtime. 0 Active Escitalopram Oxalate 10 [...] Nasal Suspension (Flonase)Indication s:Nasal congestion Administer 1 [place] into nostril in the morning. 16 g [...] No 09/24/2022 documented as of this encounter Plan of Treatment Upcoming Encounters Date Type Department Care Team (Late st Contact Info) Description 05/19/2023 11:45 AM EST Hem/Onc Treatment Hematology/Oncology Treatment, [address] [place] [address] Alejandrina, Chair 8 Hem Onc [address] [place] [address] Arrived 06/25/2023 2:40 PM EST Telemedicine Hepatology, [facility] [address] [facility] [place] [address] Andreea Goodman DO [address] [place] [address] 07/22/2023 3:00 PM EDT Telemedicine Palliative Medicine [address] [place] [address] Nan Vargas MD [address] [place] [address] [place] [address] Pending Results Name Type Priority Associated Diagnoses Date /Time COMPREHENSIVE METABOLIC PANEL Lab STAT 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) 05/19/2023 10:33 AM EST Health Maintenance Due Date Last Done Comments [...] this encounter Medical Devices Implanted Type Area Motor Coach Operator Device Identifier Shelf Expiration Date Model / Serial / Lot Power Port 8fr Sngl Lumen Plas - [id number] Implanted:Qty : 1 on 10/22/2022 by James Baeza DO at OR [facility] Right: Chest CR BARD : PERIPHERAL VASCULAR [id number] 02/25/2024 [id number] / / [id number] documented as of this encounter Procedures Procedure Name Priority Date/Time Associated Diagnosis Comments DIFFERENTIAL, AUTOMATED STAT 05/19/2023 10:33 AM EST 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) CBC STAT 05/19/2023 10:33 AM EST 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) CBC STAT 05/19/2023 10:33 AM EST 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) documented in this encounter Results * (ABNORMAL) DIFFERENTIAL, AUTOMATED (05/19/2023 10:33 AM EST) WBC 7.66 4.00 - 10.80 K/uL 05/19/2023 10:37 AM EST [facility] 56-02 Neutrophils % 76.6(H) 40.0 - 75.0 % 05/19/2023 10:37 AM EST [facility] 56-02 Lymphocytes % 6.9(L) 18.0 - 42.0 % 05/19/2023 10:37 AM EST [facility] [place] 56-02 Monocytes % 16.1(H) 1.0 - 11.0 % 05/19/2023 10:37 AM EST [facility] [place] 56-02 Eosinophils % 0.1 0.0 - 6.0 % 05/19/2023 10:37 AM EST [facility] [place] 56-02 Basophils % 0.3 0.0 - 2.0 % 05/19/2023 10:37 AM EST [facility] 56-02 Absolute Neutrophils 5.87 1.80 - 7.70 K/uL 05/19/2023 10:37 AM EST [facility] 56-02 Absolute Lymphocytes 0.53(L) 1.00 - 4.80 K/ul 05/19/2023 10:37 AM [facility] 56- Absolute Monocytes 1.23(H) 0.00 - 1.10 K/uL 05/19/2023 10:37 AM [facility] 56-02 Absolute Eosinophils 0.01 0.00 - 0.70 K/uL 05/19/2023 10:37 AM [facility] 56-02 Absolute Basophils 0.02 0.00 - 0.20 K/uL 05/19/2023 10:37 AM [facility] 56- Blood Venous blood specimen / Unknown Venipuncture / Unknown 05/19/2023 10:33 AM EST 05/19/2023 10:33 AM EST Jeff Robbins MD LAB BLOOD ORDERABLES [facility] [address]- [address] [place] [address] * (ABNORMAL) CBC (05/19/2023 10:33 AM EST) WBC 7.66 4.00 - 10.80 K/uL 05/19/2023 10:37 AM [facility] 56- RBC 2.87 4.50 - 5.25 M/uL 05/19/2023 10:37 AM [facility] 56- HGB 10.7(L) 14.0 - 16.8 g/dL 05/19/2023 10:37 AM [facility] 56- HCT 31.2(L) 40.0 - 48.4 % 05/19/2023 10:37 AM [facility] 56- MCV 108.7 82.0 - 99.5 fL 05/19/2023 10:37 AM [facility] 56- MCH 37.3 27.0 - 34.0 pg 05/19/2023 10:37 AM [facility] 56- MCHC 34.3 32.0 - 36.0 g/dL 05/19/2023 10:37 AM [facility] 56- RDW 18.5 11.5 - 15.5 % 05/19/2023 10:37 AM [facility] 56- PLT 206 140 - 400 K/uL 05/19/2023 10:37 AM EST [facility] 56- MPV 9.1 6.6 - 11.1 fL 05/19/2023 10:37 AM EST [facility] 56- Blood Venous blood specimen / Unknown Venipuncture / Unknown 05/19/2023 10:33 AM EST 05/19/2023 10:33 AM EST Jeff Robbins MD LAB BLOOD ORDERABLES [facility] [address]- [address] [place] [address] documented in this encounter Visit Diagnoses Diagnosis 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) 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 Question Answer Comments Discussion of Advance Directives occurred with: Patient Care Teams Client Services Coordinator Relationship Specialty Start Date End Date Escobar Iglesias DO [address] [place] [address] PCP - General Family Medicine 10/07/22 documented as of this encounter
--- OUTSIDE RECORDS SUMMARY | 2023-05-29 14:11 | External Medical Summary | Summary of Care ---
Author Name Unknown Organization [facility] Address [address] [place] [address] Phone [phone] Care Team Providers Care Floor Sweeper Name Role Phone Escobar Iglesias DO Primary Care Provider Reason for Visit * Reason Onset Date Comments Appointment 05/14/2023 Encounter Details Date Type Department Care Team (Late st Contact Info) Description 05/14/2023 Telephone Hematology/Oncology [facility] Alejandrina [place] [address] [facility] [place] [address] Jeff Robbins MD [address] [facility] [place] [address] Appointment Allergies Active Allergy Reactions Criticality Noted Date Comments Prochlorperazine Edema face/lips/tongue High 023 BODY DYSFUNCTION documented as of this encounter (statuses as of 05/21/2023) Medications Medication Sig Dispensed Refills Start Date [...] HCl 0.1 % Nasal Solution Administer 1 [place] into nostril in the morning and 1 [place] before bedtime. 0 Active Escitalopram Oxalate 10 [...] Nasal Suspension (Flonase)Indicati ons:Nasal congestion Administer 1 [place] into nostril in the morning. 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 30 Tablet 2 10/07/2022 4 Discontinue d(Refill) documented as of this encounter (statuses as of 05/21/2023) Active Problems Problem Noted Date Diagnosed Date [...] as of this encounter (statuses as of 05/21/2023) Social History Tobacco Use Types Packs/Day Years [...] encounter Miscellaneous Notes * Telephone Encounter - Tarik Armendariz OSA - 05/21/2023 2:25 PM EST Duplicate encounter * Telephone Encounter - Evelin Chong OSA - 05/20/2023 12:17 PM EST LMOM to schedule. * Telephone Encounter - Marcia Muhammad OSA - 05/14/2023 8:01 AM EST Nutrician-please contact patient in regards to Nutritional advice while on chemotherapy- requestingvideo visit as possible, difficulty with transportation to [facility] Thank you documented in this encounter Plan of Treatment Upcoming Encounters Date Type Department Care Team (Late st Contact Info) Description 06/03/2023 10:45 AM EST Office Visit Hematology/Oncology [address] [address] Jeff Robbins MD [address] [place] [address] [place] [address] 06/25/2023 2:40 PM EST Telemedicine Hepatology, [facility] [address] [place] [address] Andreea Goodman DO [address] [place] [address] 07/22/2023 3:00 PM EDT Telemedicine Palliative Medicine [facility] [address] 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 Question Answer Comments Discussion of Advance Directives occurred with: Patient Care Teams Floor Sweeper Relationship Specialty Start Date End Date Escboar Iglesias DO [address] [place] [address] PCP - General Family Medicine 10/07/22 documented as of this encounter
--- OUTSIDE RECORDS SUMMARY | 2023-05-29 14:11 | External Medical Summary | Summary of Care ---
Author Name Unknown Organization [facility] Address [address] [place] [facility] [place] [address] Phone [phone] Care Team Providers Care Early Childhood Associate Name Role Phone Escobar Iglesias DO Primary Care Provider Reason for Visit * Reason Onset Date Comments Test Results 01/14/2023 Encounter Details Date Type Department Care Team (Late st Contact Info) Description 01/14/2023 Telephone Hepatology, [facility] [address] [place] [address] Andreea Goodman DO [address] [place] [address] Test Results Allergies Active Allergy Reactions Criticality [...] HCl 0.1 % Nasal Solution Administer [address] into nostril in the morning and [address] before bedtime. 0 Active Escitalopram Oxalate 10 [...] 10:45 AM EST Office Visit Hematology/Oncology [facility] [address] Jeff [facility] MD [address] [facility] [address] 06/25/2023 2:40 PM EST Telemedicine Hepatology, [facility] [address] [facility] [place] [address] Andreea Goodman DO [address] [place] [address] 07/22/2023 3:00 PM EDT Telemedicine Palliative Medicine [facility] [address] Nan Vargas MD [address] [place] [address] [place] [address] Health Maintenance Due Date [...] this encounter Medical Devices Implanted Type Area Gatehouse Attendant Device Identifier Shelf Expiration Date Model / Serial / Lot Power Port 8fr Sngl Lumen Plas - [id number] Implanted:Qty : 1 on 10/22/2022 by James Baeza DO at OR [facility] Right: Chest CR BARD : PERIPHERAL VASCULAR [id number] 02/25/2024 [id number] / / [id number] documented as of this encounter Advance Directives Documents on File Type Date Recorded 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 Question Answer Comments Discussion of Advance Directives occurred with: Patient Care Teams Early Childhood Associate Relationship Specialty Start Date End Date Escobar Iglesias DO [address] [place] [address] PCP - General Family Medicine 10/07/22 documented as of this encounter
--- OUTSIDE RECORDS SUMMARY | 2023-05-29 14:12 | External Medical Summary | Summary of Care ---
Author Name Unknown Organization [facility] Address [address] [place] [address] Phone [phone] Care Team Providers Care Chief Writer Name Role Phone Escobar gIlesias DO Primary Care Provider Reason for Visit * Reason Comments Outpatient Testing Encounter Details Date Type Department Care Team (Late st Contact Info) Description 05/04/2023 11:00 AM EST Laboratory Laboratory, [facility] [address] [place] [id number] [facility] [address] [place] [address] 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); Malignant neoplasm of transverse colon (HCC) Allergies Active Allergy Reactions Criticality Noted Date Comments Prochlorperazine Edema face/lips/tongue High 023 BODY DYSFUNCTION documented as of this encounter (statuses as of 05/04/2023) Medications Medication Sig Dispensed Refills Start Date [...] HCl 0.1 % Nasal Solution Administer 1 [place] into nostril in the morning and 1 [place] before bedtime. 0 Active Escitalopram Oxalate 10 [...] as of this encounter (statuses as of 05/04/2023) Active Problems Problem Noted Date Diagnosed Date Dehydration 01/05/2023 Hypokalemia 01/05/2023 Metastasis to liver 10/07/2022 Malignant neoplasm of transverse colon Encounter for antineoplastic chemotherapy 2022 JOY (generalized anxiety disorder) 09/26/2022 Severe protein-energy malnutrition 09/25/2022 Abdominal mass, right upper quadrant 09/24/2022 Colonic mass 09/24/2022 Elevated LFTs 09/24/2022 Iron deficiency anemia 09/24/2022 ANTHONY (acute kidney injury) 09/24/2022 documented as of this encounter (statuses as of 05/04/2023) Social History Tobacco Use Types Packs/Day Years [...] Upcoming Encounters Date Type Department Care Team (Latest Contact Info) Description 05/04/2023 11:30 AM EST Imaging Radiology [facility] [address] [facility] [address] Malignant neoplasm of transverse colon (HCC); 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) 05/05/2023 1:30 PM EST Hem/Onc Treatment Hematology/Oncology Treatment, [address], [place] [address] Alejandrina, Chair 4 Hem [address] [place] [address] 05/13/2023 3:00 PM EST Office Visit Palliative Medicine [address], [place] [address] Nan Vargas MD [address] [place] [address] 05/18/2023 11:00 AM EST Laboratory Laboratory, [facility] [address] [place] [id number] [address] [address] 05/19/2023 11:15 AM EST Office Visit Hematology/Oncology [address] [place], [place] [address] Jeff Robbins MD [address] [place] [address], [place] [address] 05/19/2023 11:45 AM EST Hem/Onc Treatment Hematology/Oncology Treatment[address] [place] [address] Alejandrina, Chair 8 Hem Onc [address] [place], [place] [address] 06/25/2023 2:40 PM EST Telemedicine Hepatology, [facility] [place] [address] Andreea Goodman DO 132 [facility] [place] [address] Pending Results Name Type Priority Associated Diagnoses Date /Time CBC WITH WBC DIFFERENTIAL Lab STAT 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) 05/04/2023 10:58 AM EST COMPREHENSIVE METABOLIC PANEL Lab STAT 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) 05/04/2023 10:58 AM EST CBC Lab STAT 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) 05/04/2023 10:58 AM EST DIFFERENTIAL, AUTOMATED Lab STAT 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) 05/04/2023 10:58 AM EST Health Maintenance Due Date Last [...] this encounter Medical Devices Implanted Type Area Salt Grinder Device Identifier Shelf Expiration Date Model / Serial / Lot Power Port 8fr Sngl Lumen Plas - [id number] Implanted:Qty : 1 on 10/22/2022 by James Baeza, at OR [facility] Right: Chest CR BARD : PERIPHERAL VASCULAR [id number] 02/25/2024 [id number] / / [id number] documented as of this encounter Visit Diagnoses Diagnosis 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) 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) Malignant neoplasm of transverse colon Malignant neoplasm of transverse colon (HCC) Malignant 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) Secondary malignant neoplasm of liver documented in this encounter Advance Directives Documents on File Type Date Recorded Patient Fire Information Officer Expl 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 Question Answer Comments Discussion of Advance Directives occurred with: Patient Care Teams Chief Writer Relationship Specialty Start Date End Date Escobar Iglesias DO [address] [facility] [place] [address] PCP - General Family Medicine 10/07/22 documented as of this encounter
--- OUTSIDE RECORDS SUMMARY | 2023-05-29 14:12 | External Medical Summary | Summary of Care ---
Author Name Unknown Organization [facility] Address [address] [place] [address] Phone [phone] Care Team Providers Care Retail And Restaurant Associate Name Role Phone Escobar Iglesias DO Primary Care Provider Reason for Visit * Reason Comments Chemotherapy Chemo/recheck Encounter Details Date Type Department Care Team (Late st Contact Info) Description 05/07/2023 1:00 PM EST Office Visit Hematology/Oncology [facility] [address] [place] [address] Jeff Robbins MD [address] [place] [address] Malignant neoplasm of transverse colon (HCC)*; 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); 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 0 Active Escitalopram Oxalate 10 [...] as of this encounter (statuses as of 05/07/2023) Active Problems Problem Noted Date Diagnosed Date Dehydration 01/05/2023 Hypokalemia 01/05/2023 Metastasis to liver 10/07/2022 Malignant neoplasm of transverse colon Encounter for antineoplastic chemotherapy 2022 JOY (generalized anxiety disorder) 09/26/2022 Severe protein-energy malnutrition 09/25/2022 Abdominal mass, right upper quadrant 09/24/2022 Colonic mass 09/24/2022 Elevated LFTs 09/24/2022 Iron deficiency anemia 09/24/2022 ANTHONY (acute kidney injury) 09/24/2022 documented as of this encounter (statuses as of 05/07/2023) Social History Tobacco Use Types Packs/Day Years Used Date Smoking Tobacco: Never Smokeless Tobacco: Never Tobacco Cessation:Counseling Given: Not Answered Alcohol Use Standard Drinks/Week Comments Never 0 [...] Sign Reading Time Taken Comments Blood Pressure 82/57 05/07/2023 12:52 PM EST Pulse 55 05/07/2023 12:52 PM EST Temperature 36.9 C (98.5 F) 05/07/2023 12:[address] Respiratory Rate 16 05/07/2023 12:52 PM EST Oxygen Saturation 95% 05/07/2023 12:52 PM EST Inhaled Oxygen Concentration - - Weight 58.6 kg (129 lb 3.2 oz) 05/07/2023 12:52 PM EST Height - - Body Mass Index 20.86 10/22/2022 12:03 PM EDT documented in this [...] No 09/24/2022 documented as of this encounter Progress Notes * Jeff Robbins MD - 05/07/2023 3:37 PM EST Hematology/Oncology Outpatient Clinic note [facility] [address] [facility] [place] [address] Name: Escobar Reagan Date: 01/27/2023 CHIEF COMPLAINT: Escobar Reagan is a 77 year old male here today for f/u visit today. HEMATOLOGY/ONCOLOGY DIAGNOSIS :Transverse colon adenocarcinoma -liver metastasis -multiple lung nodules which are suspicious for metastatic disease -CEA level at diagnosis around 2200 range (late August 2022) -NGS checkup: -TMB 10.3 which is medium high -MSI stable -no actionable mutation -KRAS, NRAS --> negative -BRAF negative Bahai. Iron deficiency. Right lower extremity DVT (02/06/2023): He is on Eliquis. Abdominal ascites, S/P paracentesis, 4 L fluid removed, cytology negative (02/09/2023). DATE OF DIAGNOSIS: 09/25/22 TREATMENT HISTORY: IV Venofer weekly x 2 completed 10/17/22 CURRENT TREATMENT: MODIFIED FOLFOX6 every 14 days (10/10/22 - ) 01/06/2023-->decided to discontinue oxaliplatin because of concerns of worsening neuropathy. Will continue 5-Fluorouracil and leucovorin every 2 weekly. As of 05/07/2023, decided to change chemotherapy treatment to irinotecan and Vectibix. ( disease progression noted in the imaging studies. DIAGNOSTIC WORKUP: Patient complained of fullness in the right upper quadrant for several months duration, has some increasing coughing lately. No smoking. Blood workup done in late June 2022 showed abnormal LFTs with elevated alkaline phosphatase about 400, ALT 88, AST 167, bilirubin level 0.5. CT chest, abdomen and pelvis (09/24/2022 ) -left upper lobe 8 mm nodule, scattered 2 to 3 mm nodules -no mediastinal lymphadenopathy -multiple liver lesions, confluent mass measuring 22 cm, liver mass effects the right portal vein. -thickening of the distal transverse colon near the splenic flexure -lymph saul mass near the distal transverse colon measuring 3 x 2 x 2 x 1.9 cm - Right sacral ala and multilevel lumbar vertebral body small sclerotic lesions - CEA level --> 2269 (09/24/2022). Biopsy from liver lesion (09/25/2022) -Adenocarcinoma consistent with colorectal primary. -NGS checkup --> pending. OTHER IMPORTANT HISTORY: -multiple basal cell carcinoma removed. Interval History: CT C/A/P 01/01/23: IMPRESSION 1. Partial response. Decrease in size of several of the hepatic metastases and interval developmentof homogeneous low attenuation of most of the metastases. Decrease in size of the mass in the mid transverse colon. Decrease in size of the pericolonic tumor implant. 2. Marked decrease in the nodular opacity in the left upper lobe of the lung. 3. Scattered pulmonary micronodules, probably of no clinical significance. 4. Moderate ascites, increased. Moderate body wall edema, increased. 5. Moderate bowel wall edema of the distal ileum and terminal ileum, new since 09/24/2022. 6. Indeterminate right kidney lower pole 1.5 cm lesion. Reviewed with them regarding the recent follow-up imaging study, overall partial response noted. HISTORY OF PRESENT ILLNESS: He has come the clinic for the follow-up, accompanied by his son in the office. He is ambulating with the help of the cane. Overall he is feeling weak and tired, no new bleeding complications, he is on Eliquis, no increasing nausea or vomiting. Current weight around 129 lb. Previously noted distention of the abdomen as leg edema has improved. He is on diuretic every other day. Past Surgical History: Procedure Laterality Date INSER TUNN ACC DEV;5 YRS/OLDER Right 10/22/2022 INSERT TUNNELED CENTRAL VENOUS ACCESS WITH SUBQ PORT performed by James Baeza DO at OR [facility] IR BIOPSY 09/25/2022 Social History Socioeconomic History Marital status: Spouse name: Not on file Number of children: Not on file Years of education: Not on file Highest education level: Not on file Occupational History Not on file Tobacco Use Smoking status: Never Smokeless tobacco: Never Vaping Use Vaping Use: Never used Substance and Sexual Activity Alcohol use: Never Drug use: Never Sexual activity: Not on file Other Topics Concern Not on file Social History Narrative Not on file Social Determinants of Health Financial Resource Strain: Not on file Food Insecurity: No Food Insecurity (09/29/2022) Hunger Vital Sign Worried About Running Out of Food in the Last Year: Never true Ran Out of Food in the Last Year: Never true Transportation Needs: Not on file Physical Activity: Not on file Stress: Not on file Social Connections: Not on file Intimate Partner Violence: Not on file Housing Stability: Not on file Review of patient's allergies indicates: Allergen Reactions Prochlorperazine Edema face/lips/tongue BODY DYSFUNCTION Current Outpatient Medications Medication Sig Dispense Refill Ascorbic Acid 500 MG Oral Tablet Take 1 Tablet by mouth in the morning. (Patient not taking: Reported on 01/08/2023) Vitamin E 400 UNIT Oral Capsule (Aquasol E) Take 1 Capsule by mouth in the morning. (Patient not taking: Reported on 01/08/2023) Senna 8.6 MG Oral Capsule Take 1 Tablet by mouth 2 times a day as needed for Constipation. 30 Capsule 1 Ondansetron HCl 8 MG Oral Tablet (Zofran) Take 1 Tablet by mouth every 8 hours as needed for Nausea. 30 Tablet 2 Azelastine HCl 0.1 % Nasal Solution Administer 1 [place] into nostril in the morning and 1 [place] before bedtime. Escitalopram Oxalate 10 MG Oral Tablet (Lexapro) Take 1 Tablet by mouth in the morning. Loperamide HCl 2 MG Oral Capsule (Imodium) Take 1 Capsule by mouth 4 times a day as needed for Diarrhea. 60 Capsule 0 Buprenorphine 5 MCG/HR Transdermal Patch Weekly Place 1 Patch topically on the skin once a week. (Patient not taking: Reported on 01/08/2023) hydroCHLOROthiazide 25 MG Oral Tablet (Hydrodiuril) Take 1 Tablet by mouth in the morning. 30 Tablet 2 Spironolactone 50 MG Oral Tablet (Aldactone) Take 1 Tablet by mouth in the morning. 30 Tablet 2 Loratadine 10 MG Oral Tablet (Claritin) Take 1 Tablet by mouth in the morning. 30 Tablet 3 Mirtazapine 30 MG Oral Tablet (Remeron) Take 1 Tablet by mouth at bedtime. 60 Tablet 0 oxyCODONE HCl 5 MG Oral Tablet (Oxy IR) Take 1 Tablet by mouth every 8 hours as needed for Pain, Moderate. 60 Tablet 0 busPIRone HCl 10 MG Oral Tablet (Buspar) Take 1 Tablet by mouth in the morning and 1 Tablet at noonand 1 Tablet before bedtime. 270 Tablet 0 Apixaban 5 MG Oral Tablet (Eliquis) Take 5 mg (one tablet) twice daily 60 Tablet 2 No current facility-administered medications for this visit. Facility-Administered Medications Ordered in Other Visits Medication Dose Route Frequency Provider Last Rate Last Admin hEParin 100 UNIT/ML Lock Flush inj 500 Units 5 mL IV Lock PRN Jeff Robbins MD 500 Units at 05/07/23 1243 sodium chloride 0.9 % flush central line 10 mL 10 mL IV Push PRN Jeff Robbins MD 10 mL at 05/07/23 1243 OBJECTIVE: BP 82/57 (BP Site: Left Arm, BP Position: Sitting, BP Cuff Size: Regular) | Pulse 55 | Temp 36.9 C (98.5 F) (Tympanic) | Resp 16 | Wt 58.6 kg (129 lb 3.2 oz) | SpO2 95% | BMI 20.86 kg/m | BSA 1.65 m PHYSICAL EXAM: ECOG: Performance Status 1 = 80-90% Symptoms but nearly ambulatory General Appearance: No acute distress HEENT: Normal - No oral or pharyngeal masses, ulceration or thrush noted Lymph Nodes: Normal - No palpable lymph nodes in the neck or supraclavicular areas Lungs/Thorax: Normal - Clear to auscultation Heart: Normal - Regular rate and rhythm, normal S1, S2, no appreciable murmurs Pulses/Extremities: No leg edema. Abdomen: Normal - Softly distended, +ascites present, nontender, bowel sounds present, +hepatomegaly Neurologic: alert and oriented x 4, ambulating with help of the cane. LABS: Blood workup done on 03/23/2023: -BUN/Creat: 26/1.0, Calcium 9.6, -AST 64, ALT 25, bilirubin level 0.5, alkaline phosphatase 403. -WBC 5800, H&H of 12.4/35, Platelet count of [id number]. -CEA level--> 38.9 (01/26/2023). Blood workup done on 05/04/2023: -WBC 5007, H&H of 10.9/31.5, Platelet count of 253249 -BUN/Creat: 26/0.9 -AST 75, alkaline phosphatase 508, bilirubin level 0.9, ALT 42. Calcium 9.2. CLL --> pending for today. Bilateral lower extremity Doppler evaluation:(02/06/2023) -right lower extremity --> extensive DVT (thrombosis is seen in the common femoral vein. Occlusive deep venous thrombosis is seen throughout the superficial femoral vein. Nonocclusive thrombus is seen within the popliteal vein. There is likely nonocclusive superficial thrombus within the great sa phenous vein near the junction with the common femoral vein. The visualized calf veins are appearedpatent.) -left lower extremity, --> no DVT. He was admitted at [facility] for volume overload increasing ascites. S/P abdominal paracentesis on 02/09/2023 at [facility], for L of the fluid removed. Cytology --> negative for malignancy. CT scan of the chest, abdomen and pelvis on 05/04/2023: 1. A few new pulmonary nodules measuring up to 9 mm, indeterminate but concerning for additional pulmonary metastases. 2. Redemonstration of bilobar hepatic metastases, including conglomerate lesions occupying much of the right hepatic lobe, with several new ill-defined hypodense hepatic lesions measuring up to approximately 2.9 cm, indeterminate but concerning for additional hepatic metastases. 3. Indeterminate bilateral renal lesions as described above, one of which in the right interpolar region has increased in size compared to the prior exam. 4. Redemonstration of short segment circumferential wall thickening involving the transverse colon,similar to the prior exam, consistent with the patient's known colonic neoplasm. 5. Small volume ascites, decreased compared to the prior exam. 6. New para-aortic lymph node or soft tissue thickening which partially encases the celiac axis andSMA measures 3.2 x 2.0 cm. 7. New periportal and peripancreatic lymphadenopathy. 8. Small amount of layering hyperdense material in the urinary bladder may reflect excreted intravenous contrast or small urinary bladder calculi. 9. Ectasia of the ascending aorta to 4 cm at the level of the main pulmonary artery. 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 Right lower extremity DVT , on Eliquis. Pseudo cirrhosis of liver. Currently he is on 5-Fluorouracil and leucovorin maintenance treatment every 2 weekly. I reviewed with him he is on regarding the recent follow-up CT scan of chest, abdomen pelvis, progressive disease noted in the chest and in the liver, intra- abdominal lymphadenopathy also has increased. Overall propranolol disease noted Reviewed NGS checkup, KRAS and NRAS negative. I would like to discontinue 5- Fluorouracil and leucovorin at this time, talked to them about combination of irinotecan and Vectibix every 2 weekly. Reviewed with them regarding treatment schedule side effect profile and he is in agreement for that He is somewhat frail, would like to go irinotecan 125 mg/m every 2 weekly, Vectibix 6 mg/kg every2 weekly. Once again we talked about overall treatment goal which would be palliative not curative. He will continue Eliquis 5 mg twice a day, no new bleeding complications. As leg edema has improved, would like to cut down dose of hydrochlorothiazide and Aldactone to every other day, (Thursday). Will see him in about [address] Jeff Robbins Hem/Onc (This note was completed using the dictation program Fluency Direct. As such, there may be misspellings word substitutions, or other variations that should not change the essence of the clinical content of this encounter note. If there is need for further clarification, please direct questions to the provider listed above.) documented in this encounter Nursing Notes * Jannie Melo CMA - 05/07/2023 12:53 PM EST Patient identifed by name and birthdate Do you have any concerns about pain management for today's visit? Yes. Patient instructed to discuss pain concerns with provider during the visit today Living Will or Advance Directive for Health Care as noted on the problem list. [facility] is a way you can talk to your provider on line through e-mail. Would you like to sign up? I can activate it for you? ALREADY ACTIVE Filed Vitals: 05/07/23 1252 BP: 82/57 Pulse: 55 Resp: 16 Temp: 36.9 C (98.5 F) TempSrc: Tympanic SpO2: 95% Weight: 58.6 kg (129 lb 3.2 oz) Patient was instructed to not get up on the exam table/exam chair until directed and assisted by their provider; patient is to remain seated in the chair/ wheelchair/ exam table/ exam chair for fall prevention and safety reasons. Patient is aware to have assistance to step down off exam table/exam chair with personnel. Patient voiced full comprehension of instructions. documented in this encounter Plan of Treatment Upcoming Encounters Date Type Department Care Team (Late st Contact Info) Description 05/13/2023 3:00 PM EST Office Visit Palliative Medicine [facility] [address] [place] [address] Nan Vargas MD [address] [place] [address] [place] [id number] 05/19/2023 10:30 AM EST Laboratory Laboratory [facility] [address] [place] [id number] [place] [address] [place] [address] 05/19/2023 10:45 AM EST Nurse Only Hematology/Oncology Scenery Alejandrina [place] [address] [place] [address] Alejandrina, Nurse Hem Onc Scenery [address] [place] [address] 05/19/2023 11:45 AM EST Hem/Onc Treatment Hematology/Oncology Treatment, [place] [address] [place] [address] Alejandrina, Chair 8 Hem Onc Scenery [address] [place] [address] 06/25/2023 2:40 PM EST Telemedicine Hepatology, 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) Expected: 05/07/2023, Expires: 05/07/2024 Health Maintenance Due Date Last Done Comments [...] this encounter Medical Devices Implanted Type Area Lot Associate Device Identifier Shelf Expiration Date Model / Serial / Lot Power Port 8fr Sngl Lumen Plas - [id number] Implanted:Qty : 1 on 10/22/2022 by James Baeza DO at OR [facility] Right: Chest CR BARD : PERIPHERAL VASCULAR [id number] 02/25/2024 [id number] / / [id number] documented as of this encounter Visit Diagnoses Diagnosis Malignant neoplasm of transverse colon (HCC)- Primary Malignant 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) Secondary malignant neoplasm of liver 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 Question Answer Comments Discussion of Advance Directives occurred with: Patient Care Teams Retail And Restaurant Associate Relationship Specialty Start Date End Date Escobar Iglesias DO [address] [place] [address] PCP - General Family Medicine 10/07/22 documented as of this encounter"
--- OUTSIDE RECORDS SUMMARY | 2023-05-29 14:12 | External Medical Summary | Summary of Care ---
Author Name Unknown Organization [facility] Address [address] [place] [address] Phone [phone] Care Team Providers Care Rice Dryer Mechanic Name Role Phone Escobar Iglesias DO Primary Care Provider Reason for Visit * Reason Comments Procedure Pump disconnect/port flush * Episode Based Medications (Routine) - Authorized Specialty Diagnoses / Procedures Referred By Contac t Referred To Contact Diagnoses 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) Encounter for antineoplastic chemotherapy Procedures PA LEUCOVORIN CALCIUM INJECTION PA PALONOSETRON HCL PA FLUOROURACIL INJECTION PA OXALIPLATIN Jeff Robbins MD [address] [facility] [place] [address] Anc Hem/Onc Tony Tinoco DEPT CLOSED - 03/10/23 [address] [place] [address] Referral ID Status Reason Start Date Expiration Date V isits Requested Visits Authorized [id number] Authorized 01/26/2023 04/25/2099 [id number] Encounter Details Date Type Department Care Team (Latest Contact Info) Description 05/07/2023 12:30 PM EST Immunization/ Injection Hematology/Oncology Treatment, [place] [address] [place] [address] Nurse, Med [address] [place] [address] 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)*; Malignant neoplasm of transverse colon (HCC); Encounter for antineoplastic chemotherapy Allergies Active Allergy Reactions Criticality Noted Date [...] HCl 0.1 % Nasal Solution Administer 1 [place] into nostril in the morning and 1 [place] before bedtime. 0 Active Escitalopram Oxalate 10 [...] as of this encounter Nursing Notes * Rachel Rogers RN - 05/07/2023 12:51 PM EST Chair 7 Pt arrives with home 5FU pump completed. Pt denies any complaints. Pump removed, VAD flushed per protocol and michele needle removed. Patient tolerated treatment well and was discharged in stable condition. documented in this encounter Plan of Treatment Upcoming Encounters Date Type Department Care Team (Late st Contact Info) Description 05/13/2023 3:00 PM EST Office Visit Palliative Medicine [facility] [place] [address] [place] [address] Nan Vargas MD [address] [place] [address] 05/19/2023 10:30 AM EST Laboratory Laboratory [facility] [address] [place] [id number] [place], Lab [address] [place] [address] 05/19/2023 10:45 AM EST Nurse Only Hematology/Oncology [facility] [address] [facility] [place] [address] Park, Nurse Hem Onc [address] [place] [address] 05/19/2023 11:45 AM EST Hem/Onc Treatment Hematology/Oncology Treatment, [place] [address] [place] [address] Alejandrina, Chair 8 Hem Onc Scenery [address] [place] [address] 06/25/2023 2:40 PM EST Telemedicine Hepatology, [facility] [address] [place] [address] Andreea Goodman, [address] [place] [address] Health Maintenance Due Date Last Done Comments [...] this encounter Medical Devices Implanted Type Area Product Analyst Device Identifier Shelf Expiration Date Model / Serial / Lot Power Port 8fr Sngl Lumen Plas - [id number] Implanted:Qty : 1 on 10/22/2022 by James Baeza DO at OR [facility] Right: Chest CR BARD : PERIPHERAL VASCULAR [id number] 02/25/2024 [id number] / / [id number] documented as of this encounter Visit Diagnoses Diagnosis 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)- Primary 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) Malignant neoplasm of transverse colon Encounter for antineoplastic chemotherapy documented in this encounter Administered Medications Active Administered Medications - up to 3 most recent administrations Medication Order MAR Action Action Date Dose Rate Site hEParin 100 UNIT/ML Lock Flush inj 500 Units 500 Units (5 mL), IV Lock, PRN Other, IV Flush, Starting on Mamie 05/07/23 at 1240, Until Thu05/08/23 at 1239, For 24 hours, Do not flush if lock, PICC, or central line not in place; IV infusing or unable to flush. Given 05/07/2023 12:43 PM EST 500 Units sodium chloride 0.9 % flush central line 10 mL 10 mL, IV Push, PRN Other, IV Flush, Starting on Mamie 05/07/23 at 1240, Until Thu05/08/23 at 1239, For 24 hours, Do not flush if lock, PICC, or central line not in place; IV infusing or unable to flush. Given 05/07/2023 12:43 PM EST 10 mL documented in this encounter Advance Directives Documents on File Type Date Recorded Patient Program Advocate Expl 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 Question Answer Comments Discussion of Advance Directives occurred with: Patient Care Teams Rice Dryer Mechanic Relationship Specialty Start Date End Date Escobar Iglesias DO [address] [place] [address] PCP - General Family Medicine 10/07/22 documented as of this encounter
--- OUTSIDE RECORDS SUMMARY | 2023-05-29 14:12 | External Medical Summary ---
Author Name Unknown Address Unknown Organization [facility] [address] [place] [address] Laboratory Report Ordering Provider Test Date Status RASHAAD BARAHONA 05/04/2023 10:58:32 Final Observation Date Value Abnormality Reference (Units ) Status SYNC LEUKOCYTES IN BLOOD BY AUTOMATED COUNT 05/04/2023 10:58:32 5.75 4.00-10.80 (K/uL) Final Segs 05/04/2023 10:58:32 64.0 40.0-75.0 (%) Final Lymphs % 05/04/2023 10:58:32 14.4 Below low normal 18.0-42.0 (%) Final Monos 05/04/2023 10:58:32 18.3 Above high normal 1.0-11.0 (%) Final Eosinophils 05/04/2023 10:58:32 2.6 0.0-6.0 (%) Final Basos 05/04/2023 10:58:32 0.7 0.0-2.0 (%) Final Absolute Segs 05/04/2023 10:58:32 3.68 1.80-7.70 (K/uL) Final Lymphs, absolute 05/04/2023 10:58:32 0.83 Below low normal 1.00-4.80 (K/ul) Final Monos, Abs 05/04/2023 10:58:32 1.05 0.00-1.10 (K/uL) Final Eos, Abs 05/04/2023 10:58:32 0.15 0.00-0.70 (K/uL) Final Basos, Abs 05/04/2023 10:58:32 0.04 0.00-0.20 (K/uL) Final Performing Location LAB[facility]ORY [facility] [place] [address] [place] [address]
--- OUTSIDE RECORDS SUMMARY | 2023-05-29 14:12 | External Medical Summary ---
Author Name Unknown Address Unknown Organization [facility] [address] [place] [address] Laboratory Report Ordering Provider Test Date Status BROOKLYNNEIL 05/04/2023 10:58:32 Final Observation Date Value Abnormality Reference (Units ) Status Nucleated erythrocytes/100 leukocytes [Ratio] in Blood by Automated count 05/04/2023 10:58:32 Final Performing Location LAB[facility]ATORY [facility] [place] [address] [place] [address]
--- OUTSIDE RECORDS SUMMARY | 2023-05-29 14:12 | External Medical Summary | Summary of Care ---
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 [facility] What condition is the patient being seen for? Cancer Comments Nutritional advice while on chemotherapy- requesting video visit as possible, difficulty with transportation to [facility] Reason for Visit * Reason Onset Date Comments Referral 05/13/2023 pst supervisor Encounter Details Date Type Department Care Team ([facility] Contact Info) Description 05/13/2023 Telephone Hematology/Oncology Treatment, [place] [address] [place] [address] Jeff Robbins MD [address] [facility] [place] [address] Referral (pst supervisor) Allergies Active Allergy Reactions Criticality Noted Date Comments Prochlorperazine Edema face/lips/tongue High 023 BODY DYSFUNCTION documented as of this encounter (statuses as of 05/13/2023) Medications Medication Sig Dispensed Refills Start Date [...] HCl 0.1 % Nasal Solution Administer 1 [place] into nostril in the morning and 1 [place] before bedtime. 0 Active Escitalopram Oxalate [...] Nasal Suspension (Flonase)Indication s:Nasal congestion Administer 1 [place] into nostril in the morning. 16 g 3 05/13/2023 Active documented as of this encounter (statuses as of 05/13/2023) Active Problems Problem Noted Date Diagnosed Date [...] as of this encounter (statuses as of 05/13/2023) Social History Tobacco Use Types Packs/Day Years [...] Description 05/19/2023 10:30 AM EST Laboratory Laboratory [facility] [place] [address] [facility] [place] [id number] Alejandrina, Lab [facility] [address] [place] [address] 05/19/2023 10:45 AM EST Nurse Only Hematology/Oncology [facility] Alejandrina [place] [address] [place] [address] Alejandrina, Nurse Hem Onc [facility] [address] [place] [address] 05/19/2023 11:45 AM EST Hem/Onc Treatment Hematology/Oncology Treatment, [place] [address] [place] [address] Alejandrina, Chair 8 Hem Onc Scenery [address] [place] [address] 06/25/2023 2:40 PM EST Telemedicine Hepatology, [facility] [address] [place] [address] Andreea Goodman, [address] [place] [address] Scheduled Referrals Name Type Priority Associated Diagnoses [...] this encounter Medical Devices Implanted Type Area Box Person Device Identifier Shelf Expiration Date Model / Serial / Lot Power Port 8fr Sngl Lumen Plas - [id number] Implanted:Qty : 1 on 10/22/2022 by James Baeza DO at OR [facility] Right: Chest CR BARD : PERIPHERAL VASCULAR [id number] 02/25/2024 [id number] / / [id number] documented as of this encounter Visit Diagnoses Diagnosis 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 Question Answer Comments Discussion of Advance Directives occurred with: Patient Care Teams Occupational Health Physiotherapist Relationship Specialty Start Date End Date Escobar Iglesias DO [address] [facility] [place] [address] PCP - General Family Medicine 10/07/22 documented as of this encounter
--- OUTSIDE RECORDS SUMMARY | 2023-05-29 14:12 | External Medical Summary | Summary of Care ---
Author Name Unknown Organization [facility] Address [address] [place] [address] Phone [phone] Care Team Providers Care Transcription Specialist Name Role Phone Escobar Iglesias DO Primary Care Provider Reason for Visit * Reason Comments Chemotherapy Leucovorin, 5FU. 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) Encounter for antineoplastic chemotherapy Procedures AR LEUCOVORIN CALCIUM INJECTION AR PALONOSETRON HCL AR FLUOROURACIL INJECTION AR OXALIPLATIN Jeff Robbins MD [address] [place] [address] Anc Hem/Onc [facility] DEPT CLOSED - 03/10/23 [address] [facility] [place] [address] Referral ID Status Reason Start Date Expiration Date V isits Requested Visits Authorized [id number] Authorized 01/26/2023 04/25/2099 [id number] Encounter Details Date Type Department Care Team (Latest Contact Info) Description 05/05/2023 1:30 PM EST Hem/Onc Treatment Hematology/Oncolog y Treatment, [place] [address] [place] [address] Alejandrina, Chair 4 Hem Onc Scen[address] [place] [address] 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 0 Active Escitalopram Oxalate 10 [...] as of this encounter (statuses as of 05/05/2023) Active Problems Problem Noted Date Diagnosed Date Dehydration 01/05/2023 Hypokalemia 01/05/2023 Metastasis to liver 10/07/2022 Malignant neoplasm of transverse colon Encounter for antineoplastic chemotherapy 2022 JOY (generalized anxiety disorder) 09/26/2022 Severe protein-energy malnutrition 09/25/2022 Abdominal mass, right upper quadrant 09/24/2022 Colonic mass 09/24/2022 Elevated LFTs 09/24/2022 Iron deficiency anemia 09/24/2022 ANTHONY (acute kidney injury) 09/24/2022 documented as of this encounter (statuses as of 05/05/2023) Social History Tobacco Use Types Packs/Day Years [...] Sign Reading Time Taken Comments Blood Pressure 106/83 05/05/2023 1:35 PM EST Pulse 90 05/05/2023 1:35 PM EST Temperature 36.2 C (97.2 F) 05/05/2023 1:35 PM ES T Respiratory Rate 18 05/05/2023 1:35 PM EST Oxygen Saturation 95% 05/05/2023 1:35 PM EST Inhaled Oxygen Concentration - - Weight 60.3 kg (133 lb) 05/05/2023 1:35 PM EST Height - - Body Mass Index 21.48 10/22/2022 12:03 PM EDT documented in this [...] as of this encounter Nursing Notes * Lesley Whipple, RN - 05/05/2023 2:41 PM EST Goals: Patient will remain free from injury. Possible barriers to meeting goals: Fall risk d/t ambulation with IV pole. Stability of the patient: Moderately unstable - medium risk of patient condition declining or worsening Summary regarding today's goals: Met: Patient remained free of injury. Functional status at today's visit: Restricted in physically strenuous activity but ambulatory and able to carry out work on a light orsedentary nature, e.g. light house work, office work The drug name, dose, infusion volume, rate and route of administration, expiration date and time, appearance and physical integrity of the drug and rate set on the pump and sequencing of drug administration (as applicable) were verified by me and second sign-in RN. Patient was assessed for symptoms or adverse side effects during treatment. Patient tolerated procedure well. Discharged in stable condition. * Lesley Whipple RN - 05/05/2023 2:02 PM EST Chair 7. Patient arrived for leucovorin/5FU. Patient denies any acute issues or complaints in regards to treatment. Chemo agents Leucovorin/5FU. Appetite Pretty good per patient. Nausea/Vomiting no Diarrhea no Constipation no Mucositis no Fatigue no Bleeding no Infection no Rash no Numbness tingling no Pain no other than back pain. Radiation no ABN Labs WNL for treatment. Alt in Tx: no Return in 2 days for pump d/c. Safety and Risk for Injury Patient will remain free from injury. Ensure appropriate safety devices are available. Provide and maintain safe environment. documented in this encounter Plan of Treatment Upcoming Encounters Date Type Department Care Team (Late st Contact Info) Description 05/07/2023 12:30 PM EST Immunization/Injection Hematology/Oncology Treatment, [address] [place] [address] Nurse, Med [address] [place] [address] [place] [address] 05/13/2023 3:00 PM EST Office Visit Palliative Medicine [address] [address] Nan Vargas MD [address] [place] [address] [place] [address] 05/18/2023 11:00 AM EST Laboratory Laboratory, [facility] [address] [facility] [place] [facility] [place] [phone] Betito Huerta [address] [facility] [place] [address] 05/19/2023 11:15 AM EST Office Visit Hematology/Oncology [address] [address] Jeff Robbins MD [address] [place], [place] [address] 05/19/2023 11:45 AM EST Hem/Onc Treatment Hematology/Oncology Treatment, [place] [address] [place], [place] [address] Alejandrina, Chair 8 Hem Onc Scenery [address] [facility], [place] [address] 06/25/2023 2:40 PM EST Telemedicine Hepatology, [facility] [address] [place] [address] Andreea Goodman DO [address] [place] [address] Health Maintenance Due Date Last Done Comments [...] this encounter Medical Devices Implanted Type Area Hoop Puncher Device Identifier Shelf Expiration Date Model / Serial / Lot Power Port 8fr Sngl Lumen Plas - [id number] Implanted:Qty : 1 on 10/22/2022 by James Baeza DO at OR [facility] Right: Chest CR BARD : PERIPHERAL VASCULAR [id number] 02/25/2024 [id number] / / [id number] documented as of this encounter Visit Diagnoses Diagnosis 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)- Primary 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) Malignant neoplasm of transverse colon Encounter for antineoplastic chemotherapy documented in this encounter Administered Medications Active Administered Medications - up to 3 most recent administrations Medication Order MAR Action Action Date Dose Rate Site diphenhydrAMINE (Benadryl) inj 50 mg 50 mg, IV Push, ONCE PRN Other, Hypersensitivity Reaction, Starting on Thu05/05/23 at 1333, Until Thu05/06/23 at 1332, For 24 hours EPINEPHrine 1 MG/ML inj 0.3 mg 0.3 mg, Intramuscular, ONCE PRN Other, Hypersensitivity Reaction or Anaphylaxis, Starting on Thu05/05/23 at 1333, Until Thu05/06/23 at 1332, For 24 hours hEParin 100 UNIT/ML Lock Flush inj 500 Units 500 Units (5 mL), IV Lock, PRN Other, IV Flush, Starting on Thu05/05/23 at 1333, Until Thu05/06/23 at 1332, For 24 hours, Do not flush if lock, PICC, or central line not in place; IV infusing or unable to flush. Hydrocortisone Sod Suc (PF) (Solu-Cortef) inj 100 mg 100 mg, IV Push, ONCE PRN Other, Hypersensitivity Reaction, Starting on Thu05/05/23 at 1333, Until Thu05/06/23 at 1332, For 24 hours oxygen GAS Inhalation, OXYGEN, First dose on Thu05/05/23 at 1600, Until Discontinued, Device/Managed by: Low Flow Device, Goal SPO2 (%): 91-95, Starting Device: Nasal Cannula, Initial Flow Rate (LPM): 2, Lowest Support: Nasal Cannula: Flow 0-6 LPM. Titrate up/down by 1 LPM., Higher Support: Non-Rebreather (NRB) Mask: Minimum of 10 LPM. Titrate to maintain bag inflation., Titration Interval: Q2 minutes and as needed., Notify Provider: For sudden DECREASE in resting SPO2 to less than 85% and when escalating delivery device. sodium chloride 0.9 % flush central line 10 mL 10 mL, IV Push, PRN Other, IV Flush, Starting on Thu05/05/23 at 1333, Until Thu05/06/23 at 1332, For 24 hours, Do not flush if lock, PICC, or central line not in place; IV infusing or unable to flush. Inactive Administered Medications - up to 3 most recent administrations Medication Order MAR Action Action Date Dose Rate Site Fluorouracil (5-Fu) 4,150 mg for Home Infusion 4,150 mg (rounded from 4,152 mg = 2,400 mg/m2 1.73 m2 Treatment Plan BSA from Recorded weight), Intravenous, Administer over 46 Hours, Home Infusion Pharmacy to specify base solution and volume., ONCE, 1 dose, On Thu05/05/23 at 1315 Start Infusion 05/05/2023 2:35 PM EST 4,150 mg 3 mL/hr Fluorouracil (5-Fu) inj 700 mg 700 mg (rounded from 692 mg = 400 mg/m2 1.73 m2 Treatment Plan BSA from Recorded weight), IV Push, ONCE, 1 dose, On Thu05/05/23 at 1415 Given 05/05/2023 2:30 PM EST 700 mg leucovorin calcium 700 mg in D5W 250 mL INFUSION 700 mg (rounded from 692 mg = 400 mg/m2 1.73 m2 Treatment Plan BSA from Recorded weight), IV Piggyback, ONCE, 1 dose, On Thu05/05/23 at 1415, Administer over 30 Minutes, Before 5-FU Start Infusion 05/05/2023 1:51 PM EST 700 mg 500 mL/hr NSS infusion FOR HYDRATION Intravenous, at 50 mL/hr Administer over 10 Hours, ONCE, 1 dose, On Thu05/05/23 at 1415 Start Infusion 05/05/2023 1:45 PM EST 500 mL 50 mL/hr ondansetron (Zofran) tab 8 mg 8 mg, Oral, ONCE, On Thu05/05/23 at 1415, For 1 dose Given 05/05/2023 1:50 PM EST 8 mg documented in this encounter Advance Directives Documents on File Type Date Recorded 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 Question Answer Comments Discussion of Advance Directives occurred with: Patient Care Teams Transcription Specialist Relationship Specialty Start Date End Date Escobar Iglesias DO [address] [place] [address] PCP - General Family Medicine 10/07/22 documented as of this encounter
--- OUTSIDE RECORDS SUMMARY | 2023-05-29 14:12 | External Medical Summary | Summary of Care ---
Author Name Unknown Organization [facility] Address [address] [place] [address] Phone [phone] Care Team Providers Care Slate Trimmer Name Role Phone Escobar Iglesias DO Primary Care Provider Reason for Referral * Opinion/Recommendation - Change # of Visits to 1 (Within 10 days (routine)) - Authorized Specialty Diagnoses / Procedures Referred By Barbra orr Referred To Contact Ophthalmology Diagnoses Watery eyes Nan Vargas MD [address] [place] [address] [place] [address] Kian Cloud DO [address] [place] [address] Referral ID Status Reason Start Date Expiration Date Visits Requested Visits Authorized [id number] Authorized Specialty Services Required 05/13/2023 999 999 Question Answer Referral Priority Within 10 days (routine) Where should this appointment be scheduled? [facility] Referring to: [facility]fred[facility] Referring for: Ophthalmology Conditions Ophthalmology Conditions Other Ophthalmology (comment) Comments VERY Watery eyes with chemo Reason for Visit * Reason Comments Follow Up Encounter Details Date Type Department Care Team (Late st Contact Info) Description 05/13/2023 3:00 PM EST Office Visit Palliative Medicine [facility] [address] [place] [address] Nan Vargas MD [address] [place] [address] Malignant neoplasm of transverse colon (HCC)*; Watery eyes; Nasal congestion; Constipation due to pain medication; Severe protein-energy malnutrition (HCC); Malignant neoplasm metastatic to both lungs [...] HCl 0.1 % Nasal Solution Administer 1 [place] into nostril in the morning and 1 [place] before bedtime. 0 Active Escitalopram Oxalate 10 [...] Nasal Suspension (Flonase)Indication s:Nasal congestion Administer 1 [place] into nostril in the morning. 16 g [...] Never Smokeless Tobacco: Never Tobacco Cessation:Counseling Given: No Alcohol Use Standard Drinks/Week Comments Never 0 [...] Sign Reading Time Taken Comments Blood Pressure 84/52 05/13/2023 3:13 PM EST Pulse 102 05/13/2023 3:13 PM EST Temperature 35.3 C (95.5 F) 05/13/2023 3:13 PM ES T Respiratory Rate - - Oxygen Saturation 98% 05/13/2023 3:13 PM EST Inhaled Oxygen Concentration - - Weight 58.9 kg (129 lb 14.4 oz) 05/13/2023 3:13 PM EST Height - - Body Mass Index 20.98 10/22/2022 12:03 PM EDT documented in this [...] No 09/24/2022 documented as of this encounter Patient Instructions * Patient Instructions* Jonna Roper LPN - 05/13/2023 3:08 PM EST Our Palliative Medicine Clinic is available Thursday through Thursday during business hours, so we are unavailable on weekends and holidays. Please ensure that you request refills early in the week as itmay take 1-2 days for them to be addressed and filled, for authorizations to be approved, or for the pharmacy to order them if needed. You can contact our office at [phone], which is our clinic in [place], or you can message us on [employer]. If you have an emergency outside of these hours, we recommend calling your primary care clinic, Oncology office, or going to the ER if you have a medical emergency. documented in this encounter Progress Notes * Jonna Roper LPN - 05/13/2023 3:12 PM EST Return Palliative Visit Pain: no pain today Still issue with eyes watering Last BM: every other day without issues. Taking senna Appetite not good No N/V Does sleep all night Other issues: * Nan Vargas MD - 05/13/2023 3:00 PM EST Palliative Medicine Outpatient Progress Note [facility] Palliative Medicine Outreach [address] [place] [address] Name: Escobar Reagan Date: 05/13/2023 HPI: Escobar Reagan is a 77 year old male with stage IV colon cancer, mets to lung and liver, seen in follow-up for goals of care and symptom management. Reports eyes are constantly watering - started when treatment started Runny nose is a bit better with Claritin but still annoying Weight has been dropping. Drinking boost in AM, around 9, then not eating again until around 3 Palliative ROS: Pain: Rarely uses oxy IR Nausea/Vomiting no Constipation: no Confusion: no Sleep: no Activities: no Appetite: OK Mood: good Other: no ROS: See HPI. All others negative. No past medical history on file. SHx: No change FHx: No change Decision-making Capacity: Does Patient have Decisional Capacity? y Does Patient have a Healthcare Agent? Y, Advanced Care Planning (see ACP Tab): AD in EMR: y POLST in EMR: no Examination: BP 84/52 | Pulse 102 | Temp 35.3 C (95.5 F) | Wt 58.9 kg (129 lb 14.4 oz) | SpO2 98% | BMI 20.98 kg/m | BSA 1.66 m Constitutional: no acute distress, chronically ill HENT: normocephalic, atraumatic. Eyes: anicteric, sclera and conjunctiva normal. Neck: no stridor Chest: normal respiratory effort Abdominal: nondistended Extremities: no edema Data Review: External notes reviewed: Hem onc notes reviewed Lab / Imaging Results: Cr 0.9, normal History obtained from: pt and son Discussion with other team members: will d/w Ophtho ASSESSMENT/PLAN: Escobar Reagan is a 77 year old male seen in follow-up for goals of care and pain and symptom management. Colon CA, mets to liver and lung - Plan to change tx to single agent chemo, starting next Watery eyes -?cause - Will msg Ophtho, can schedule appt as they likely need to do an exam Poor appetite / severe protein calorie malnutrition - Advised to eat whatever he wants - Has gone from 155 in Jan 2023 to 129 today Follow up in 2-3 mo, after eye appt Nan Vargas MD Palliative Medicine Physician [facility] Office: [phone] 05/13/2023 documented in this encounter Plan of Treatment Upcoming Encounters Date Type Department Care Team (Late st Contact Info) Description 05/19/2023 10:30 AM EST Laboratory Laboratory [place] [address] [place] [phone] Alejandrina, Lab Scenery [address] [place] [address] 05/19/2023 10:45 AM EST Nurse Only Hematology/Oncology [place] [address] [place] [address] Alejandrina, Nurse Hem Onc Scenery [address] [place] [address] 05/19/2023 11:45 AM EST Hem/Onc Treatment Hematology/Oncology Treatment, [place] [address] [place] [address] Alejandrina Chair 8 Hem Onc [place] [address] [place] [address] 06/25/2023 2:40 PM EST Telemedicine Hepatology, [facility] [address] [place] [address] Andreea Goodman DO [address] [place] [address] Scheduled Referrals Name Type Priority Associated Diagnoses Orde r Schedule ADULT/PEDS OPHTHALMOLOGY/OPTOM ETRY REFERRAL OP Referral Within 10 days (routine) Watery eyes Ordered: 05/13/2023 Health Maintenance Due Date Last [...] this encounter Medical Devices Implanted Type Area Food Technician Device Identifier Shelf Expiration Date Model / Serial / Lot Power Port 8fr Sngl Lumen Plas - [id number] Implanted:Qty : 1 on 10/22/2022 by James Baeza DO at OR [facility] Right: Chest CR BARD : PERIPHERAL VASCULAR [id number] 02/25/2024 [id number] / / [id number] documented as of this encounter Visit Diagnoses Diagnosis Malignant neoplasm of transverse colon (HCC)- Primary Malignant neoplasm of transverse colon Watery eyes Epiphora, unspecified as to cause Nasal congestion Other diseases of nasal cavity and sinuses Constipation due to pain medication Other constipation Severe protein-energy malnutrition (HCC) Other severe protein-calorie malnutrition 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 Question Answer Comments Discussion of Advance Directives occurred with: Patient Care Teams Slate Trimmer Relationship Specialty Start Date End Date Escobar Iglesias DO [address] [facility] [place] [address] PCP - General Family Medicine 10/07/22 documented as of this encounter"
--- OUTSIDE RECORDS SUMMARY | 2023-05-29 14:12 | External Medical Summary | Summary of Care ---
Author Name Unknown Organization [facility] Address [address] [place] [address] Phone [phone] Care Team Providers Care Visual Education Director Name Role Phone Escobar Iglesias DO Primary Care Provider Reason for Visit * Reason Onset Date Comments Appointment 05/14/2023 Encounter Details Date Type Department Care Team (Late st Contact Info) Description 05/14/2023 Telephone Hematology/Oncology [facility] [place] [address] [facility] [place] [address] Jeff Robbins MD [address] [facility] [place] [address] Appointment Allergies Active Allergy Reactions Criticality Noted [...] HCl 0.1 % Nasal Solution Administer 1 [place] into nostril in the morning and 1 [place] before bedtime. 0 Active Escitalopram Oxalate 10 [...] Nasal Suspension (Flonase)Indication s:Nasal congestion Administer 1 [place] into nostril in the morning. 16 g [...] Muhammad OSA - 05/14/2023 8:01 AM EST Nutritcian-please contact patient in regards to Nutritional advice while on chemotherapy- requesting video visit as possible, difficulty with transportation to appts Thank yo documented in this encounter Plan of Treatment Upcoming Encounters Date Type Department Care Team (Late st Contact Info) Description 05/19/2023 10:30 AM EST Laboratory Laboratory Scenery [place] [address] [place] [phone] Alejandrina, Lab Scenery [address] [place] [address] 05/19/2023 10:45 AM EST Nurse Only Hematology/Oncology [place]enery [place] [address] [place] [address] Alejandrina, Nurse Hem Onc Scenery [address] [place] [address] 05/19/2023 11:45 AM EST Hem/Onc Treatment Hematology/Oncology Treatment, [place] [address] [place] [address] Alejandrina, Chair 8 Hem Onc Scenery [address] [place] [address] 06/25/2023 2:40 PM EST Telemedicine Hepatology, [facility] [address] [place] [address] Andreea Goodman DO [address] [place] [address] Health Maintenance Due Date Last Done Comments [...] this encounter Medical Devices Implanted Type Area Drainage Design Coordinator Device Identifier Shelf Expiration Date Model / Serial / Lot Power Port 8fr Sngl Lumen Plas - [id number] Implanted:Qty : 1 on 10/22/2022 by James Baeza DO at OR [facility] Right: Chest CR BARD : PERIPHERAL VASCULAR [id number] 02/25/2024 [id number] / / [id number] documented as of this encounter Advance Directives Documents on File Type Date Recorded Patient Medicaid Collection Specialist Expl 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 Question Answer Comments Discussion of Advance Directives occurred with: Patient Care Teams Visual Education Director Relationship Specialty Start Date End Date Escobar Iglesias DO [address] [facility] [place] [address] PCP - General Family Medicine 10/07/22 documented as of this encounter
--- OUTSIDE RECORDS SUMMARY | 2023-05-29 14:12 | External Medical Summary ---
Author Name Unknown Address Unknown Organization K0G:[facility] [place] [address] [place] [address] Laboratory Report Ordering Provider Test Date Status RASHAAD BARAHONA 05/04/2023 10:58:32 Final Observation Date Value Abnormality Reference (Units ) Status BUN 05/04/2023 10:58:32 26 Above high normal 6-20 (mg/dL) Final Creatinine 05/04/2023 10:58:32 0.9 0.6-1.2 (mg/dL) Final Glomerular filtration rate/1.73 sq M.predicted [Volume Rate/Area] in Serum, Plasma or Blood by Creatinine-based formula (CKD-EPI) 05/04/2023 10:58:32 87 >=60 (mL/min) Final eGFR is calculated based on the CKD-EPI 2020 equation SODIUM 05/04/2023 10:58:32 138 135-146 (m mol/L) Final Potassium 05/04/2023 10:58:32 4.0 3.5-5.1 (m mol/L) Final Cl 05/04/2023 10:58:32 103 98-107 (mm ol/L) Final CO2 05/04/2023 10:58:32 24 22-32 (mmo l/L) Final Anion gap 05/04/2023 10:58:32 11 7-15 (mmol /L) Final Glucose 05/04/2023 10:58:32 125 Above high normal 70 -120 (mg/dL) Final Albumin 05/04/2023 10:58:32 3.2 Below low normal 3.8 -5.0 (g/dL) Final AST (Aspartate aminotransferase) 05/04/2023 10:58:32 75 Above high normal 10-50 (U/L) Final Alk Phos 05/04/2023 10:58:32 508 Above high normal 35 -130 (U/L) Final Bilirubin, Total 05/04/2023 10:58:32 0.9 <=1 .2 (mg/dL) Final Calcium 05/04/2023 10:58:32 9.2 8.4-10.2 ( mg/dL) Final Protein 05/04/2023 10:58:32 6.4 6.0-8.3 (g /dL) Final ALT (Alanine aminotransferase) 05/04/2023 10:58:32 42 10-50 (U/L) Tres ordonez Performing Location [facility] [place] [address] [facility] [address]
--- OUTSIDE RECORDS SUMMARY | 2023-05-29 14:12 | External Medical Summary | Summary of Care ---
Author Name Unknown Organization [facility] Address [address] [place] [address] Phone [phone] Care Team Providers Care Tier Lift Operator Name Role Phone Escobar Iglesias DO Primary Care Provider Reason for Visit * Reason Onset Date Comments Precert Future 05/08/2023 Vectibix/ irinot ecan Encounter Details Date Type Department Care Team (Late st Contact Info) Description 05/08/2023 Telephone Hematology/Oncology Treatment, [place] [address] [place] [address] Jeff Robbins MD 200 [facility] [place] [address] Precert Future (Vectibix/ irinotecan) Allergies Active Allergy Reactions Criticality Noted Date Comments Prochlorperazine Edema face/lips/tongue High 023 BODY DYSFUNCTION documented as of this encounter (statuses as of 05/08/2023) Medications Medication Sig Dispensed Refills Start Date [...] HCl 0.1 % Nasal Solution Administer 1 [place] into nostril in the morning and 1 [place] before bedtime. 0 Active Escitalopram Oxalate 10 [...] as of this encounter (statuses as of 05/08/2023) Active Problems Problem Noted Date Diagnosed Date [...] as of this encounter (statuses as of 05/08/2023) Social History Tobacco Use Types Packs/Day Years [...] PM EST Order received for vectibix/ irinotecan. [place] plan built and routed for signature. Waiting for auth. Consent signed 05/07/22. Hep B labs 03/02/23. Nurse education 05/19/23. Patient is already scheduled for first treatment 05/19/23. documented in this encounter Plan of Treatment Upcoming Encounters Date Type Department Care Team (Late st Contact Info) Description 05/13/2023 3:00 PM EST Office Visit Palliative Medicine [facility] 200 [facility], [place] [address] Nan Vargas MD [address] [place] [address] [place] [address] 05/19/2023 10:30 AM EST Laboratory Laboratory [facility] [place] [address] [place] [phone] Alejandrina, Lab Scenery 200 [facility] [place] [address] 05/19/2023 10:45 AM EST Nurse Only Hematology/Oncology [facility] [place] [address] [place] [address] Alejandrina, Nurse Hem Onc [facility] 200 [facility] [place] [address] 05/19/2023 11:45 AM EST Hem/Onc Treatment Hematology/Oncology Treatment, [place] 200 [place] [address] Alejandrina, Chair 8 Hem Onc [facility] [address] [facility] [place] [address] 06/25/2023 2:40 PM EST Telemedicine Hepatology, [facility] [address] [place] [address] Andreea Goodman DO [address] [place] [address] Health Maintenance Due Date Last Done Comments [...] this encounter Medical Devices Implanted Type Area Lan Specialist Device Identifier Shelf Expiration Date Model / Serial / Lot Power Port 8fr Sngl Lumen Plas - [id number] Implanted:Qty : 1 on 10/22/2022 by James Baeza DO at OR [facility] Right: Chest CR BARD : PERIPHERAL VASCULAR [id number] 02/25/2024 [id number] / / [id number] documented as of this encounter Advance Directives Documents on File Type Date Recorded Patient Social Work Instructor Expl 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 Question Answer Comments Discussion of Advance Directives occurred with: Patient Care Teams Tier Lift Operator Relationship Specialty Start Date End Date Escobar Iglesias DO [facility] [place] [address] PCP - General Family Medicine 10/07/22 documented as of this encounter
--- OUTSIDE RECORDS SUMMARY | 2023-05-29 14:12 | External Medical Summary | Summary of Care ---
Author Name Unknown Organization [facility] Address [address] [place] [address] Phone [phone] Care Team Providers Care Wire Weaving Loom Setter Name Role Phone Escobar Iglesias DO Primary Care Provider Encounter Details Date Type Department Care Team (Late st Contact Info) Description 05/04/2023 Orders Only [facility] [address] [place] [address] Jeff Robbins MD 200 [place] [address] Allergies Active Allergy Reactions Criticality Noted Date [...] HCl 0.1 % Nasal Solution Administer 1 [place] into nostril in the morning and 1 [place] before bedtime. 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)*; Malignant neoplasm of transverse colon (HCC); Encounter for antineoplastic chemotherapy 05/13/2023 3:00 PM EST Office Visit Palliative Medicine [address], [place] [address] Nan Vargas MD [address] [place] [address] 05/18/2023 11:00 AM EST Laboratory Laboratory, [facility] [place] [phone] [facility] 132 [facility] [place] [address] 05/19/2023 11:15 AM EST Office Visit Hematology/Oncolog y [address] [place], [place] [address] Jeff Robbins MD [address] [place] [address], [place] [address] 05/19/2023 11:45 AM EST Hem/Onc Treatment Hematology/Oncolog y Treatment, [address], [place] [address] Alejandrina, Chair 8 Hem Onc [address] [place], [place] [address] 06/25/2023 2:40 PM EST Telemedicine Hepatology, [facility] [place] [address] Andreea Goodman DO 132 [facility] [place] [address] Health Maintenance Due Date Last Done Comments [...] this encounter Medical Devices Implanted Type Area Manufacturer'S Service Representative Device Identifier Shelf Expiration Date Model / Serial / Lot Power Port 8fr Sngl Lumen Plas - [id number] Implanted:Qty : 1 on 10/22/2022 by James Baeza DO at OR [facility] Right: Chest CR BARD : PERIPHERAL VASCULAR [id number] 02/25/2024 [id number] / / [id number] documented as of this encounter Advance Directives Documents on File Type Date Recorded Patient Supervisor Broadloom Expl 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 Question Answer Comments Discussion of Advance Directives occurred with: Patient Care Teams Wire Weaving Loom Setter Relationship Specialty Start Date End Date Escobar Iglesias DO [address] [place] [address] PCP - General Family Medicine 10/07/22 documented as of this encounter
--- OUTSIDE RECORDS SUMMARY | 2023-05-29 14:12 | External Medical Summary | Summary of Care ---
Author Name Unknown Organization [facility] Address [address] [place] [address] Phone [phone] Care Team Providers Care Dynamometer Repairer Name Role Phone Escobar Iglesias DO Primary Care Provider Encounter Details Date Type Department Care Team (Late st Contact Info) Description 05/08/2023 Documentation [facility] [place] [address] [place] [address] Services, [facility] [address] [place], [place] [phone] Allergies Active Allergy Reactions Criticality Noted Date [...] HCl 0.1 % Nasal Solution Administer 1 [place] into nostril in the morning and 1 [place] before bedtime. 0 Active Escitalopram Oxalate 10 [...] as of this encounter Progress Notes * Shannon Jarquin RN - 05/08/2023 4:41 PM EST The following documentation summarizes the services provided by [facility] asthe prescribed therapy has been completed. The client was referred to us for home therapy. The ordered therapy was Fluorouracil The home therapy began on: 10/27/22 Per physician order: -the prescribed therapy was completed on: 05/07/23 -the Port will remain in place and will be maintained by the clinical staff at [facility]: The client and/or caregiver were compliant with therapy administration. The therapy goals were met. The following instructions were provided during our final conversation with the client and/or caregiver: did not speak to client Collaboration of Care: -[facility] clinical staff were notified of CVAD removal and therapy completion -A discharge summary note was sent to: Dr. Robbins via [employer]/fax documented in this encounter Plan of Treatment Upcoming Encounters Date Type Department Care Team (Late st Contact Info) Description 05/13/2023 3:00 PM EST Office Visit Palliative Medicine [address] [place] [address] Nan Vargas MD [address] [place] [address] 05/19/2023 10:30 AM EST Laboratory Laboratory [address] [place] [id number] [place], Lab [address] [place] [address] 05/19/2023 10:45 AM EST Nurse Only Hematology/Oncology [address] [place] [address] Alejandrina, Nurse Hem Onc [address] [place] [address] 05/19/2023 11:45 AM EST Hem/Onc Treatment Hematology/Oncology Treatment, [address] [address] Alejandrina, Chair 8 Hem Onc [address] [place] [address] 06/25/2023 2:40 PM EST Telemedicine Hepatology, [facility] [address] [place] [address] Andreea Goodman DO [address] [place] [address] Health Maintenance Due Date Last Done Comments [...] this encounter Medical Devices Implanted Type Area Manager Pmo Device Identifier Shelf Expiration Date Model / Serial / Lot Power Port 8fr Sngl Lumen Plas - [id number] Implanted:Qty : 1 on 10/22/2022 by James Baeza DO at OR [facility] Right: Chest CR BARD : PERIPHERAL VASCULAR [id number] 02/25/2024 [id number] / / [id number] documented as of this encounter Advance Directives Documents on File Type Date Recorded Patient Crisis Worker Expl 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 Question Answer Comments Discussion of Advance Directives occurred with: Patient Care Teams Dynamometer Repairer Relationship Specialty Start Date End Date Escobar Iglesias DO [address] [place] [address] PCP - General Family Medicine 10/07/22 documented as of this encounter
--- OUTSIDE RECORDS SUMMARY | 2023-05-29 14:12 | External Medical Summary | Summary of Care ---
Author Name Unknown Organization [facility] Address [address] [place] [address] Phone [phone] Care Team Providers Care Supervisor Ovens Name Role Phone Escobar Iglesias DO Primary Care Provider Reason for Visit * Reason Onset Date Comments Appointment 05/07/2023 Encounter Details Date Type Department Care Team (Late st Contact Info) Description 05/07/2023 Telephone Hematology/Oncology Treatment, [place] [address] [place] [address] Jeff Robbins MD [address] [place] [address] Appointment Allergies Active Allergy Reactions Criticality Noted [...] HCl 0.1 % Nasal Solution Administer 1 [place] into nostril in the morning and 1 [place] before bedtime. 0 Active Escitalopram Oxalate 10 [...] Telephone Encounter - Charisse Fink RN - 05/07/2023 10:24 AM EST Patients scan shows progression. Per Dr Robbins, would like to see patient for office visit when he comes for pump disconnect today to discuss scan and changing treatment. documented in this encounter Plan of Treatment Upcoming Encounters Date Type Department Care Team (Late st Contact Info) Description 05/07/2023 12:30 PM EST Immunization/Injection Hematology/Oncology Treatment, [address] [place] [address] Nurse, Med [address] [place] [address] [place] [address] 05/13/2023 3:00 PM EST Office Visit Palliative Medicine [address] [address] Nan Vargas MD [address] [place] [address] [place] [address] 05/18/2023 11:00 AM EST Laboratory Laboratory, [facility] [phone] [facility] [address] 05/19/2023 11:15 AM EST Office Visit Hematology/Oncology [address] [place] [address] Jeff Robbins MD [address] [place], [place] [address] [address] 05/19/2023 11:45 AM EST Hem/Onc Treatment Hematology[address], [address] [address] Alejandrina, Chair 8 Hem Onc [address] [place] [address] 06/25/2023 2:40 PM EST Telemedicine Hepatology, [facility] [address] [place] [address] Andreea Goodman DO [address] [place] [address] Health Maintenance Due Date Last Done Comments [...] this encounter Medical Devices Implanted Type Area Radio Program Checker Device Identifier Shelf Expiration Date Model / Serial / Lot Power Port 8fr Sngl Lumen Plas - [id number] Implanted:Qty : 1 on 10/22/2022 by James Baeza DO at OR [facility] Right: Chest CR BARD : PERIPHERAL VASCULAR [id number] 02/25/2024 [id number] / / [id number] documented as of this encounter Advance Directives Documents on File Type Date Recorded Patient Drafter Structural Expl 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 Question Answer Comments Discussion of Advance Directives occurred with: Patient Care Teams Supervisor Ovens Relationship Specialty Start Date End Date Escobar Iglesias DO [address] [facility] [place] [address] PCP - General Family Medicine 10/07/22 documented as of this encounter
--- OUTSIDE RECORDS SUMMARY | 2023-05-29 14:12 | External Medical Summary ---
Author Name Unknown Address Unknown Organization K0G:[facility] [address] [place] [address] Laboratory Report Ordering Provider Test Date Status RASHAAD BARAHONA 05/04/2023 10:58:32 Final Observation Date Value Abnormality Reference (Units ) Status WBC, Total 05/04/2023 10:58:32 5.75 4.00-10.8 0 (K/uL) Final RBC 05/04/2023 10:58:32 2.93 4.50-5.25 (M/uL) Final Hemoglobin 05/04/2023 10:58:32 10.9 Below low normal 14 .0-16.8 (g/dL) Final HCT 05/04/2023 10:58:32 31.5 Below low normal 40. 0-48.4 (%) Final MCV 05/04/2023 10:58:32 107.5 82.0-99.5 (fL) Final MCH 05/04/2023 10:58:32 37.2 27.0-34.0 (pg) Final MCHC 05/04/2023 10:58:32 34.6 32.0-36.0 (g/dL) Final RDW 05/04/2023 10:58:32 16.7 11.5-15.5 (%) Final Platelets 05/04/2023 10:58:32 157 140-400 (K /uL) Final MPV 05/04/2023 10:58:32 9.1 6.6-11.1 ( fL) Final Performing Location [facility] [address] [place] [address]
--- OUTSIDE RECORDS SUMMARY | 2023-05-29 14:13 | External Medical Summary | Summary of Care ---
Author Name Unknown Organization [facility] Address [address] [facility] [address] Phone [phone] Care Team Providers Care Rn Ccu Name Role Phone Escobar Iglesias DO Primary Care Provider Reason for Visit * Reason Onset Date Comments Advice 03/13/2023 Encounter Details Date Type Department Care Team (Late st Contact Info) Description 03/13/2023 Telephone Gastroenterology, [facility] [address] [place] [address] Andreea Goodman DO [address] [place] [address] Advice Allergies Active Allergy Reactions Criticality Noted Date Comments Prochlorperazine Edema face/lips/tongue High 023 BODY DYSFUNCTION documented as of this encounter (statuses as of 04/23/2023) Medications Medication Sig Dispensed Refills Start Date [...] 0.1 % Nasal Solution Administer 1 [place] into nostril in the morning and 1 [place] before bedtime. 0 Active Escitalopram Oxalate 10 [...] the morning. 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 270 Tablet 0 01/19/2023 3 Discontinue d(Refill) documented as of this encounter (statuses as of 04/23/2023) Active Problems Problem Noted Date Diagnosed Date [...] as of this encounter (statuses as of 04/23/2023) Social History Tobacco Use Types Packs/Day Years [...] Telephone Encounter - Abbie Ramirez LPN - 04/23/2023 9:[address] Goodman, can you clarify and address, per pt . I don't think it would matter but just wantto double check. Copied from encounter below: Pt spouse calling stating that the pt is scheduled to have his Hep A vaccine on Thursday but he was recently hospitalized at [facility] for a blood clot and is now taking Eliquis, Hydrochlorothiazide and Spironolactone. Pt spouse is asking if it is ok to still get the Hep A vaccine with the change in medications. * Telephone Encounter - Marcia Yuen OSA - 04/17/2023 10:21 AM EST Patient calling regarding Hep vaccine. Patient has had 2 recent falls and was hospitalized for having fluid between each of these falls. Patient wondering if patient still should get the vaccine. Please contact patient to advise. * Telephone Encounter - David Wolf PHARM Tech - 03/13/2023 9:45 AM EST Pt spouse calling stating that the pt is scheduled to have his Hep A vaccine on Thursday but he was recently hospitalized at [facility] for a blood clot and is now taking Eliquis, Hydrochlorothiazide and Spironolactone. Pt spouse is asking if it is ok to still get the Hep A vaccine with the change in medications. Please call Marlen at [phone] ThanksDavid, t Building Specialist Centralized Clinical Pharmacy Services (CCPS) (formerly Telepharmacy). 03/13/2023,9:47 AM documented in this encounter Plan of Treatment Upcoming Encounters Date Type Department Care Team (Late st Contact Info) Description 04/24/2023 1:45 PM EST Immunization/Injection Hematology/Oncology Treatment, [place] [address] [place] [address] Nurse, Med 4 [facility] [address] 05/04/2023 11:00 AM EST Laboratory Laboratory, [facility] [place] 132 [facility] [place] [phone] Betito Huerta 132 [facility] [place] [address] 05/04/2023 11:30 AM EST [facility] 132 [facility] [place] [address] 05/05/2023 1:30 PM EST Hem/Onc Treatment Hematology/Oncology Treatment, [place] 200 [place] [address] Alejandrina, Chair [address] [place], [place] [address] 05/13/2023 3:00 PM EST Office Visit Palliative Medicine [address], [place] [address] Nan Vargas MD [address] [place] [address] [place] [address] 05/18/2023 11:00 AM EST Laboratory Laboratory, [facility] 132 [facility] [place] [phone] [facility] [address] 05/19/2023 11:15 AM EST Office Visit Hematology/Oncology [facility] 200 [facility] [place], [place] [address] Jeff Robbins MD 200 [facility] [place], [place] [address] 05/19/2023 11:45 AM EST Hem/Onc Treatment Hematology/Oncology Treatment, [address] [place] [address] Alejandrina, Chair [address] [place], [place] [address] 06/25/2023 2:40 PM EST Telemedicine Hepatology, [facility] 132 [facility] [place] [address] Andreea Goodman DO 132 [facility] [place] [address] Health Maintenance Due Date Last Done Comments [...] this encounter Medical Devices Implanted Type Area Membership Director Device Identifier Shelf Expiration Date Model / Serial / Lot Power Port 8fr Sngl Lumen Plas - [id number] Implanted:Qty : 1 on 10/22/2022 by James Baeza DO at OR 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 Question Answer Comments Discussion of Advance Directives occurred with: Patient Care Teams Rn Ccu Relationship Specialty Start Date End Date Escobar Iglesias DO [facility] [place] [address] PCP - General Family Medicine 10/07/22 documented as of this encounter
--- OUTSIDE RECORDS SUMMARY | 2023-05-29 14:13 | External Medical Summary | Summary of Care ---
Author Name Unknown Organization [facility] Address [address] [facility] [address] Phone [phone] Care Team Providers Care Cooking Casing And Drying Supervisor Name Role Phone Escobar Iglesias DO Primary Care Provider Reason for Visit * Reason Onset Date Comments Advice 03/13/2023 Encounter Details Date Type Department Care Team (Late st Contact Info) Description 03/13/2023 Telephone Gastroenterology, [facility] [address] [place] [address] Andreea Goodman DO [address] [place] [address] Advice Allergies Active Allergy Reactions Criticality Noted Date Comments Prochlorperazine Edema face/lips/tongue High 023 BODY DYSFUNCTION documented as of this encounter (statuses as of 04/28/2023) Medications Medication Sig Dispensed Refills Start Date [...] HCl 0.1 % Nasal Solution Administer 1 [place] into nostril in the morning and 1 [place] before bedtime. 0 Active Escitalopram Oxalate 10 [...] as of this encounter (statuses as of 04/28/2023) Active Problems Problem Noted Date Diagnosed Date [...] as of this encounter (statuses as of 04/28/2023) Social History Tobacco Use Types Packs/Day Years [...] encounter Miscellaneous Notes * Telephone Encounter - Clarke Obando RN - 04/23/2023 10:[address] Robbins - Pt currently receiving Leucovorin/5FU every 2 weeks. Ok to have Hep A vaccination? * Telephone Encounter - Abbie Ramirez LPN - 04/23/2023 9:32 AM EST Pt called and made aware that it is okay to take the vaccine while on the medications below. While speaking with pt and , they are also concerned, can he get this vaccine while on chemotherapy. ( He is currently receiving chemo every other week) pt sees our oncology dept at [facility]. Pt and pt worried that it will really effect how he feels if he gets on a week that he is receiving chemo, should they clarify getting this with the oncology department. ? Charisse or pat? Any concerns about getting this vaccine while on chemo? * Telephone Encounter - Abbie Ramirez LPN - 04/23/2023 9:[address] Goodman, can you clarify and address, per pt . I don't think it would matter but just wantto double check. Copied from encounter below: Pt spouse calling stating that the pt is scheduled to have his Hep A vaccine on Thursday but he was recently hospitalized at [facility] for a blood clot and is now [...] Thursday but he was recently hospitalized at [facility] for a blood clot and is now taking Eliquis, Hydrochlorothiazide and Spironolactone. Pt spouse is asking if it is ok to still get the Hep A vaccine with the change in medications. Please call Marlen at [phone] David Westbrook Pht Scientific Artist Centralized Clinical Pharmacy Services (CCPS) (formerly Telepharmacy). 03/13/2023,9:47 AM documented in this encounter Plan of Treatment Upcoming Encounters Date Type Department Care Team (Late st Contact Info) Description 05/04/2023 11:00 AM EST Laboratory Laboratory, [facility] 132 [facility] [place] [phone] Betito Huerta 132 [facility] [place] [address] 05/04/2023 11:30 AM EST Imaging Rad[facility] 132 [facility] [place] [address] 05/05/2023 1:30 PM EST Hem/Onc Treatment Hematology/Oncology Treatment, [address], [place] [address] Alejandrina, Chair 4 Hem Onc [address] [place] [address] 05/13/2023 3:00 PM EST Office Visit Palliative Medicine [address] [address] Nan Vargas MD [address] [place] [address] [place] [address] 05/18/2023 11:00 AM EST Laboratory Laboratory, [facility] 132 [facility] [place] [phone] Betito Huerta 132 [facility] [place] [address] 05/19/2023 11:15 AM EST Office Visit Hematology/Oncology [address] [place] [address] Jeff Robbins MD [address] [place] [address] 05/19/2023 11:45 AM EST Hem/Onc Treatment Hematology/Oncology Treatment, [place] [address] [place] [address] Alejandrina, Chair 8 Hem Onc [address] [place] [address] 06/25/2023 2:40 PM EST Telemedicine Hepatology, [facility] [address] [place] [address] Andreea Goodman DO [address] [place] [address] Health Maintenance Due Date Last Done Comments [...] this encounter Medical Devices Implanted Type Area Beef Cattle Farm Worker Device Identifier Shelf Expiration Date Model / Serial / Lot Power Port 8fr Sngl Lumen Plas - [id number] Implanted:Qty : 1 on 10/22/2022 by James Baeza DO at OR [facility] Right: Chest CR BARD : PERIPHERAL VASCULAR [id number] 02/25/2024 [id number] / / [id number] documented as of this encounter Advance Directives Documents on File Type Date Recorded Patient Ophthalmic Photographer Expl 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 Question Answer Comments Discussion of Advance Directives occurred with: Patient Care Teams Cooking Casing And Drying Supervisor Relationship Specialty Start Date End Date Escobar Iglesias DO 1400 [facility] [place] [address] PCP - General Family Medicine 10/07/22 documented as of this encounter
--- OUTSIDE RECORDS SUMMARY | 2023-05-29 14:13 | External Medical Summary | Summary of Care ---
Author Name Unknown Organization [facility] Address [address] [facility] [address] Phone [phone] Care Team Providers Care Oriental Medicine Practitioner Name Role Phone Escobar Iglesias DO Primary Care Provider Reason for Visit * Reason Onset Date Comments Advice 03/13/2023 Encounter Details Date Type Department Care Team (Late st Contact Info) Description 03/13/2023 Telephone Gastroenterology, [facility] [address] [place] [address] Andreea Goodman DO [address] [place] [address] Advice Allergies Active Allergy Reactions Criticality Noted Date Comments Prochlorperazine Edema face/lips/tongue High 023 BODY DYSFUNCTION documented as of this encounter (statuses as of 05/01/2023) Medications Medication Sig Dispensed Refills Start Date [...] HCl 0.1 % Nasal Solution Administer 1 [place] into nostril in the morning and 1 [place] before bedtime. 0 Active Escitalopram Oxalate 10 [...] the morning. 30 Tablet 2 01/27/2023 Active busPIRone HCl 10 MG Oral Tablet (Buspar) Take 1 Tablet by mouth in the morning and 1 Tablet at noon and 1 Tablet before bedtime. 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 However, favor giving coronavirus disease 2019 (COVID-19) vaccines and an annual inactivated influenza vaccine. " Called patient to inform. They verbalized understanding. Dr. Reza tarango * Telephone Encounter - Clarke Obando RN [...] week) pt sees our oncology dept at [facility]. Pt and pt worried that it will [...] Thursday but he was recently hospitalized at [facility] for a blood clot and is now [...] Thursday but he was recently hospitalized at [facility] for a blood clot and is now taking Eliquis, Hydrochlorothiazide and Spironolactone. Pt spouse is asking if it is ok to still get the Hep A vaccine with the change in medications. Please call Marlen at [phone] David Westbrook t Undercar Specialist Centralized Clinical Pharmacy Services (CCPS) (formerly Telepharmacy). 03/13/2023,9:47 AM documented in this encounter Plan of Treatment Upcoming Encounters Date Type Department Care Team (Late st Contact Info) Description 05/04/2023 11:00 AM EST Laboratory Laboratory, [facility] [place] [phone] [facility] [place] [address] 05/04/2023 11:30 AM EST Imaging Radiology [facility] 1st Floor, [place] [facility] [place] [address] 05/05/2023 1:30 PM EST Hem/Onc Treatment Hematology/Oncology Treatment, [address] [address] Alejandrina, Chair 4 Hem Onc [address] [address] 05/13/2023 3:00 PM EST Office Visit Palliative Medicine [facility] [address] [address] Nan Vargas MD [address] [place] [address] [place] [address] 05/18/2023 11:00 AM EST Laboratory Laboratory, [facility] 132 [facility] [place] [phone] [facility] [place] [address] 05/19/2023 11:15 AM EST Office Visit Hematology/Oncology [facility] [place] [address] [place] [address] Jeff Robbins MD [address] [place] [address] 05/19/2023 11:45 AM EST Hem/Onc Treatment Hematology/Oncology Treatment, [place] [address] [place] [address] Alejandrina, Chair 8 Hem Onc [facility] [address] [place] [address] 06/25/2023 2:40 PM EST Telemedicine Hepatology, [facility] 132 [facility] [place] [address] Andreea Goodman DO 132 [facility] [place] [address] Health Maintenance Due Date Last Done Comments [...] this encounter Medical Devices Implanted Type Area Personal Development Educator Device Identifier Shelf Expiration Date Model / Serial / Lot Power Port 8fr Sngl Lumen Plas - [id number] Implanted:Qty : 1 on 10/22/2022 by James Baeza DO at OR [facility] Right: Chest CR BARD : PERIPHERAL VASCULAR [id number] 02/25/2024 [id number] / / [id number] documented as of this encounter Advance Directives Documents on File Type Date Recorded Patient Manager Of Organizational Development Expl 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 Question Answer Comments Discussion of Advance Directives occurred with: Patient Care Teams Oriental Medicine Practitioner Relationship Specialty Start Date End Date Escobar Iglesias DO [address] [place] [address] PCP - General Family Medicine 10/07/22 documented as of this encounter
--- OUTSIDE RECORDS SUMMARY | 2023-05-29 14:13 | External Medical Summary | Summary of Care ---
Author Name Unknown Organization [facility] Address [address] [place] [address] Phone [phone] Care Team Providers Care Automatic Spinning Lathe Operator Name Role Phone Escobar Iglesias DO Primary Care Provider Reason for Visit * Reason Comments Chemotherapy Leuco/5FU 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) Encounter for antineoplastic chemotherapy Procedures ND LEUCOVORIN CALCIUM INJECTION ND PALONOSETRON HCL ND FLUOROURACIL INJECTION ND OXALIPLATIN Jeff Robbins MD [address] [place] [address] Anc Hem/Onc Tony Tinoco DEPT CLOSED - 03/10/23 200 [facility] [place] [address] Referral ID Status Reason Start Date Expiration Date V isits Requested Visits Authorized [id number] Authorized 01/26/2023 04/25/[phone] Encounter Details Date Type Department Care Team (Latest Contact Info) Description 04/22/2023 2:00 PM EST Hem/Onc Treatment Hematology/Oncolog y Treatment, [place] [address] [place] [address] Alejandrina, Chair 3 Hem Onc Scenery [address] [place] [address] 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)*; Malignant neoplasm of transverse colon (HCC); Encounter for antineoplastic chemotherapy Allergies Active Allergy Reactions Criticality Noted Date Comments Prochlorperazine Edema face/lips/tongue High 023 BODY DYSFUNCTION documented as of this encounter (statuses as of 04/22/2023) Medications Medication Sig Dispensed Refills Start Date [...] HCl 0.1 % Nasal Solution Administer 1 [place] into nostril in the morning and 1 [place] before bedtime. 0 Active Escitalopram Oxalate 10 [...] twice daily 50 Tablet 2 01/27/2023 Active Loratadine 10 MG [...] as of this encounter (statuses as of 04/22/2023) Active Problems Problem Noted Date Diagnosed Date Dehydration 01/05/2023 Hypokalemia 01/05/2023 Metastasis to liver 10/07/2022 Malignant neoplasm of transverse colon Encounter for antineoplastic chemotherapy 2022 JYO (generalized anxiety disorder) 09/26/2022 Severe protein-energy malnutrition 09/25/2022 Abdominal mass, right upper quadrant 09/24/2022 Colonic mass 09/24/2022 Elevated LFTs 09/24/2022 Iron deficiency anemia 09/24/2022 ANTHONY (acute kidney injury) 09/24/2022 documented as of this encounter (statuses as of 04/22/2023) Social History Tobacco Use Types Packs/Day Years [...] Sign Reading Time Taken Comments Blood Pressure 121/84 04/22/2023 2:18 PM EST Pulse 55 04/22/2023 2:18 PM EST Temperature 36.2 C (97.1 F) 04/22/2023 2:18 PM ES T Respiratory Rate 18 04/22/2023 2:18 PM EST Oxygen Saturation 95% 04/22/2023 2:18 PM EST Inhaled Oxygen Concentration - - Weight 60 kg (132 lb 3.2 oz) 04/22/2023 2:18 PM EST Height - - Body Mass Index 21.35 10/22/2022 12:03 PM EDT documented in this [...] as of this encounter Nursing Notes * Vanna Bates, CHRISTA - 04/22/2023 4:23 PM EST Chair 9 Chemo agents Leucovorin/5FU Appetite stable Nausea/Vomiting no Diarrhea no Constipation yes, manages PRN with OTC meds Mucositis no Fatigue yes Bleeding no Infection no Rash no Numbness tingling no Pain yes, back pain. States Oxy IR is not covering pain for 8 hours Radiation n/a ABN Labs stable for tx Alt in Tx: no Return in 2 days for pump disconnect VAD accessed; NSS infusing. Safety and Risk for Injury Patient will remain free from injury. Ensure appropriate safety devices are available. Provide and maintain safe environment. Functional status at today's visit: Ambulatory and capable of all selfcare but unable to carry out any work activities. Up and about more than 50% of waking hours The drug name, dose, infusion volume, rate and route of administration, expiration date and time, appearance and physical integrity of the drug and rate set on the pump and sequencing of drug administration (as applicable) were verified by me and second sign-in RN. Patient was assessed for symptoms or adverse side effects during treatment. Pt completed treatment without issues. VAD flushed yielding positive blood return. CADD pump connected, 5FU infusion initiated. Goals: PT will remain free from injury. Possible barriers to meeting goals: pt is a high fall risk Stability of the patient: Moderately stable - low risk of patient condition declining or worsening Summary regarding today's goals: Met: Pt remained free from injury during treatment today. Discharged in stable condition. AB assisted. documented in this encounter Plan of Treatment Upcoming Encounters Date Type Department Care Team (Late st Contact Info) Description 04/24/2023 1:45 PM EST Immunization/Injection Hematology/[address], [address] [address] Nurse, Med [address] [place] [address] [place] [address] 05/04/2023 11:00 AM EST Laboratory Laboratory, [facility] [phone] [facility], Lab [facility] 132 [employer] [place] [address] 05/04/2023 11:30 AM EST [facility] 132 [facility] [place] [address] 05/05/2023 1:30 PM EST Hem/Onc Treatment Hematology/[address], [address] [address] Alejandrina, Chair 4 Hem On[address] [place] [address] 05/13/2023 3:00 PM EST Office Visit Palliative Medicine [facility] 200 [place] [address] Nan Vargas MD [address] [place] [address] [place] [address] 05/18/2023 11:00 AM EST Laboratory Laboratory, [facility] 132 [place] [phone] [facility] 132 [place] [address] 05/19/2023 11:15 AM EST Office Visit Hematology/Oncology [address] [place] [address] Jeff Robbins MD 200 [place] [address] 05/19/2023 11:45 AM EST Hem/Onc Treatment Hematology/Oncology Treatment, [place] 200 [place] [address] Alejandrina, Chair 8 Hem Onc [address] [place] [address] 06/25/2023 2:40 PM EST Telemedicine Hepatology, [facility] 132 [facility] [place] [address] Andreea Goodman DO [facility] [place] [address] Health Maintenance Due Date Last Done Comments [...] this encounter Medical Devices Implanted Type Area Small Offset Printer Device Identifier Shelf Expiration Date Model / Serial / Lot Power Port 8fr Sngl Lumen Plas - [id number] Implanted:Qty : 1 on 10/22/2022 by James Baeza DO at OR [facility] Right: Chest CR BARD : PERIPHERAL VASCULAR [id number] 02/25/2024 [id number] / / [id number] documented as of this encounter Visit Diagnoses [...] ONCE PRN Other, Hypersensitivity Reaction, Starting on Thu04/22/23 at 1419, Until Mamie 04/23/23 at 1418, For 24 hours EPINEPHrine 1 MG/ML inj 0.3 mg 0.3 mg, Intramuscular, ONCE PRN Other, Hypersensitivity Reaction or Anaphylaxis, Starting on Thu04/22/23 at 1419, Until Mamie 04/23/23 at 1418, For 24 hours hEParin 100 UNIT/ML Lock Flush inj 500 Units 500 Units (5 mL), IV Lock, PRN Other, IV Flush, Starting on Thu04/22/23 at 1419, Until Mamie 04/23/23 at 1418, For 24 hours, Do not flush if lock, PICC, or central line not in place; IV infusing or unable to flush. Hydrocortisone Sod Suc (PF) (Solu-Cortef) inj 100 mg 100 mg, IV Push, ONCE PRN Other, Hypersensitivity Reaction, Starting on Thu04/22/23 at 1419, Until Mamie 04/23/23 at 1418, For 24 hours oxygen GAS Inhalation, OXYGEN, First dose on Thu04/22/23 at 1600, Until Discontinued, Device/Managed by: Low [...] Push, PRN Other, IV Flush, Starting on Thu04/22/23 at 1419, Until Mamie 04/23/23 at 1418, For 24 hours, Do not flush if [...] solution and volume., ONCE, 1 dose, On Thu04/22/23 at 1315 Start Infusion 04/22/2023 3:43 PM EST 4,150 mg 3 mL/hr Fluorouracil (5-Fu) inj 700 mg 700 mg (rounded from 692 mg = 400 mg/m2 1.73 m2 Treatment Plan BSA from Recorded weight), IV Push, ONCE, 1 dose, On Thu04/22/23 at 1500 Given 04/22/2023 3:39 PM EST 700 mg leucovorin calcium 700 mg in D5W 250 mL INFUSION 700 mg (rounded from 692 mg = 400 mg/m2 1.73 m2 Treatment Plan BSA from Recorded weight), IV Piggyback, ONCE, 1 dose, On Thu04/22/23 at 1500, Administer over 30 Minutes, Before 5-FU Start Infusion 04/22/2023 3:03 PM EST 700 mg 500 mL/hr NSS infusion FOR HYDRATION Intravenous, at 50 mL/hr Administer over 10 Hours, ONCE, 1 dose, On Thu04/22/23 at 1500 Start Infusion 04/22/2023 2:40 PM EST 500 mL 50 mL/hr ondansetron (Zofran) tab 8 mg 8 mg, Oral, ONCE, On Thu04/22/23 at 1500, For 1 dose Given 04/22/2023 2:47 PM EST 8 mg documented in this encounter Advance Directives Documents on File Type Date Recorded Patient Stile Ripsaw Operator Expl 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 Question Answer Comments Discussion of Advance Directives occurred with: Patient Care Teams Automatic Spinning Lathe Operator Relationship Specialty Start Date End Date Escobar Iglesias DO [address] [place] [address] PCP - General Family Medicine 10/07/22 documented as of this encounter
--- OUTSIDE RECORDS SUMMARY | 2023-05-29 14:13 | External Medical Summary | Summary of Care ---
Author Name Unknown Organization [facility] Address [address] [place] [address] Phone [phone] Care Team Providers Care Personnel Representative Name Role Phone Escobar Iglesias DO Primary Care Provider Encounter Details Date Type Department Care Team (Late st Contact Info) Description 04/21/2023 Orders Only [facility] [address] [place] [address] Sachin Girard MD 200 [place] [address] Allergies Active Allergy Reactions Criticality Noted Date Comments Prochlorperazine Edema face/lips/tongue High 023 BODY DYSFUNCTION documented as of this encounter (statuses as of 04/21/2023) Medications Medication Sig Dispensed Refills Start Date [...] HCl 0.1 % Nasal Solution Administer 1 [place] into nostril in the morning and 1 [place] before bedtime. 0 Active Escitalopram Oxalate 10 [...] skin once a week. 0 10/06/2022 Active busPIRone HCl 10 MG Oral Tablet (Buspar) Take 1 Tablet by mouth in the morning and 1 Tablet at noon and 1 Tablet before bedtime. 270 Tablet 0 01/19/2023 Active hydroCHLOROthiazide 25 MG Oral Tablet (Hydrodiuril)Indica tions:Malignant ascites Take 1 Tablet by mouth in the morning. 30 Tablet 2 01/27/2023 Active Spironolactone 50 MG Oral Tablet (Aldactone)Indicati ons:Malignant ascites Take 1 Tablet by mouth in the morning. 30 Tablet 2 01/27/2023 Active Apixaban 5 MG Oral Tablet (Eliquis)Indication [...] Pain, Moderate. 60 Tablet 0 04/01/2023 Active Hospital, Clinic, or Other Facility Administered Medication Ordered Dose Route Frequency Start Date End Date Status Fluorouracil (5-Fu) 4,150 mg in NSS 138 mL infusion 4150 mg IV CONTINUOUS 04/21/2023 04/23/2023 Active documented as of this encounter (statuses as of 04/21/2023) Active Problems Problem Noted Date Diagnosed Date Dehydration 01/05/2023 Hypokalemia 01/05/2023 Metastasis to liver 10/07/2022 Malignant neoplasm of transverse colon Encounter for antineoplastic chemotherapy 2022 JOY (generalized anxiety disorder) 09/26/2022 Severe protein-energy malnutrition 09/25/2022 Abdominal mass, right upper quadrant 09/24/2022 Colonic mass 09/24/2022 Elevated LFTs 09/24/2022 Iron deficiency anemia 09/24/2022 ANTHONY (acute kidney injury) 09/24/2022 documented as of this encounter (statuses as of 04/21/2023) Social History Tobacco Use Types Packs/Day Years [...] PM EST Hem/Onc Treatment Hematology/Oncolog y Treatment, [place] [facility] [address] Alejandrina, Chair 3 [facility] 200 [facility] [place] [address] 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)*; Malignant neoplasm of transverse colon (HCC); Encounter for antineoplastic chemotherapy 05/04/2023 11:00 AM EST Laboratory Laboratory, [facility] 132 [facility] [place] [phone] Betito Huerta 132 [facility] [place] [address] 05/04/2023 11:30 AM EST Imaging Radiology [facility] 1st Floor, [place] 132 [facility] [place] [address] 05/05/2023 1:30 PM EST Hem/Onc Treatment Hematology/Oncolog y Treatment, [address], [place] [address] Alejandrina, Chair 4 Hem Onc [address] [place] [address] 05/13/2023 3:00 PM EST Office Visit Palliative Medicine [address], [place] [address] Nan Vargas MD [address] [place] [address] [place] [address] 05/18/2023 11:00 AM EST Laboratory Laboratory, [facility] [address] [place] [phone] Betito Huerta 132 [facility] [place] [address] 05/19/2023 11:15 AM EST Office Visit Hematology/Oncolog [place] [address] Tony Padilla [place] [address] Jeff Robbins MD [address] [place] [address] 05/19/2023 11:45 AM EST Hem/Onc Treatment Hematology/Oncolog y Treatment, [place] [address] [place] [address] Alejandrina, Chair 8 Hem Onc [address] [place] [address] 06/25/2023 2:40 PM EST Telemedicine Hepatology, [facility] [address] [place] [address] Andreea Goodman DO [address] [place] [address] Health Maintenance Due Date Last Done Comments [...] this encounter Medical Devices Implanted Type Area Inspector Packager Device Identifier Shelf Expiration Date Model / Serial / Lot Power Port 8fr Sngl Lumen Plas - [id number] Implanted:Qty : 1 on 10/22/2022 by James Baeza DO at OR [facility] Right: Chest CR BARD : PERIPHERAL VASCULAR [id number] 02/25/2024 [id number] / / [id number] documented as of this encounter Advance Directives Documents on File Type Date Recorded Patient Orthotic Practitioner Expl 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 Question Answer Comments Discussion of Advance Directives occurred with: Patient Care Teams Personnel Representative Relationship Specialty Start Date End Date Escobar Iglesias DO 1400 [facility] [place] [address] PCP - General Family Medicine 10/07/22 documented as of this encounter
--- OUTSIDE RECORDS SUMMARY | 2023-05-29 14:13 | External Medical Summary | Summary of Care ---
Author Name Unknown Organization [facility] Address [address] [facility] [address] Phone [phone] Care Team Providers Care Service Or Work Dispatcher Chief Name Role Phone Escobar Iglesias DO Primary Care Provider Reason for Visit * Reason Onset Date Comments Advice 03/13/2023 Encounter Details Date Type Department Care Team (Late st Contact Info) Description 03/13/2023 Telephone Gastroenterology, [facility] [address] [place] [address] Andreea Goodman DO [address] [place] [address] Advice Allergies Active Allergy Reactions Criticality Noted [...] HCl 0.1 % Nasal Solution Administer 1 [place] into nostril in the morning and 1 [place] before bedtime. 0 Active Escitalopram Oxalate 10 [...] week) pt sees our oncology dept at [facility]. Pt and pt worried that it [...] Thursday but he was recently hospitalized at [facility] for a blood clot and is now [...] Thursday but he was recently hospitalized at [facility] for a blood clot and is now taking Eliquis, Hydrochlorothiazide and Spironolactone. Pt spouse is asking if it is ok to still get the Hep A vaccine with the change in medications. Please call Marlen at [phone] David Westbrook Pht Social Media Marketing Manager [facility] ([facility]) (formerly Telepharmacy). 03/13/2023,9:47 AM documented in this encounter Plan of Treatment Upcoming Encounters Date Type Department Care Team (Late st Contact Info) Description 05/04/2023 11:00 AM EST Laboratory Laboratory, [facility] 132 [facility] [place] [phone] Betito Huerta 132 [facility] [place] [address] 05/04/2023 11:30 AM EST Imaging [facility] 132 [facility] [place] [address] 05/05/2023 1:30 PM EST Hem/Onc Treatment Hematology/Oncology Treatment, [address], [place] [address] Alejandrina, Chair 4 Hem On[address] [place] [address] 05/13/2023 3:00 PM EST Office Visit Palliative Medicine [address] [address] Nan Vargas MD [address] [place] [address] [place] [address] 05/18/2023 11:00 AM EST Laboratory Laboratory, [facility] 132 [facility] [place] [phone] Betito Huerta 132 [facility] [place] [address] 05/19/2023 11:15 AM EST Office Visit Hematology/Oncology [address] [place] [address] Jeff Robbins MD [address] [place] [address] 05/19/2023 11:45 AM EST Hem/Onc Treatment Hematology/Oncology Treatment, [place] [address] [place] [address] Alejandrina, Chair 8 Hem Onc [address] [place] [address] 06/25/2023 2:40 PM EST Telemedicine Hepatology, [facility] [address] [place] [address] Andreea Goodman DO [address] [place] [address] Health Maintenance Due Date Last Done Comments [...] encounter Medical Devices Implanted Type Area Manager Treasury Device Identifier Shelf Expiration Date Model / Serial / Lot Power Port 8fr Sngl Lumen Plas - [id number] Implanted:Qty : 1 on 10/22/2022 by James Baeza DO at OR [facility] Right: Chest CR BARD : PERIPHERAL VASCULAR [id number] 02/25/2024 [id number] / / [id number] documented as of this encounter Advance Directives Documents on File Type Date Recorded Patient Hotel Concierge Expl 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 Question Answer Comments Discussion of Advance Directives occurred with: Patient Care Teams Service Or Work Dispatcher Chief Relationship Specialty Start Date End Date Escobar Iglesias DO 1400 [facility] [place] [address] PCP - General Family Medicine 10/07/22 documented as of this encounter
--- OUTSIDE RECORDS SUMMARY | 2023-05-29 14:13 | External Medical Summary | Summary of Care ---
Author Name Unknown Organization [facility] Address [address] [facility] [address] Phone [phone] Care Team Providers Care Heavy Equipment Field Mechanic Name Role Phone Escobar Iglesias DO Primary Care Provider Reason for Visit * Reason Onset Date Comments Advice 03/13/2023 Encounter Details Date Type Department Care Team (Late st Contact Info) Description 03/13/2023 Telephone Gastroenterology, [facility] [address] [place] [address] Andreea Goodman DO [address] [place] [address] Advice Allergies Active Allergy Reactions Criticality Noted Date Comments Prochlorperazine Edema face/lips/tongue High 023 BODY DYSFUNCTION documented as of this encounter (statuses as of 04/24/2023) Medications Medication Sig Dispensed Refills Start Date [...] HCl 0.1 % Nasal Solution Administer 1 [place] into nostril in the morning and 1 [place] before bedtime. 0 Active Escitalopram Oxalate 10 [...] as of this encounter (statuses as of 04/24/2023) Active Problems Problem Noted Date Diagnosed Date [...] as of this encounter (statuses as of 04/24/2023) Social History Tobacco Use Types Packs/Day Years [...] week) [facility]. Pt and pt worried that [...] Thursday but he was recently hospitalized at [facility] for a blood clot and is now [...] Thursday but he was recently hospitalized at [facility] for a blood clot and is now taking Eliquis, Hydrochlorothiazide and Spironolactone. Pt spouse is asking if it is ok to still get the Hep A vaccine with the change in medications. Please call Marlen at [phone] David Westbrook Pht Youtuber [facility] ([facility]) (formerly Telepharmacy). 03/13/2023,9:47 AM documented in this encounter Plan of Treatment Upcoming Encounters Date Type Department Care Team (Late st Contact Info) Description 04/24/2023 1:45 PM EST Immunization/Injection Hematology/Oncology Treatment, [address] [place] [address] Nurse, Med [address] [place] [address] [place] [address] 05/04/2023 11:00 AM EST Laboratory Laboratory, [address] [place] [phone] Betito Huerta [address] [place] [address] 05/04/2023 11:30 AM EST Imaging Radiology [facility] 1st Floor, [place] 132 [facility] [place] [address] 05/05/2023 1:30 PM EST Hem/Onc Treatment Hematology/[address]cology Treatment, [address] [address] Alejandrina, Chair 4 Hem Onc [address] [place] [address] 05/13/2023 3:00 PM EST Office Visit Palliative Medicine [address] [address] Nan Vargas MD [address] [place] [address] [place] [id number] 05/18/2023 11:00 AM EST Laboratory Laboratory, [facility] 132 [facility] [place] [phone] [facility] [address] [place] [address] 05/19/2023 11:15 AM EST Office Visit Hematology/Oncology [facility] Alejandrina [place] [address] [place] [address] Jeff Robbins MD [address] [place] [address] 05/19/2023 11:45 AM EST Hem/Onc Treatment Hematology/Oncology Treatment, [place] [address] [place] [address] Alejandrina, Chair 8 Hem Onc [facility] 200 [facility] [place] [address] 06/25/2023 2:40 PM EST Telemedicine Hepatology, [facility] [address] [place] [address] Andreea Goodman DO [address] [place] [address] Health Maintenance Due Date Last Done Comments [...] this encounter Medical Devices Implanted Type Area Seater Grinder Device Identifier Shelf Expiration Date Model / Serial / Lot Power Port 8fr Sngl Lumen Plas - [id number] Implanted:Qty : 1 on 10/22/2022 by James Baeza DO at OR [facility] Right: Chest CR BARD : PERIPHERAL VASCULAR [id number] 02/25/2024 [id number] / / [id number] documented as of this encounter Advance Directives Documents on File Type Date Recorded Patient Technical Aid Expl 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 Question Answer Comments Discussion of Advance Directives occurred with: Patient Care Teams Heavy Equipment Field Mechanic Relationship Specialty Start Date End Date Escobar Iglesias DO 1400 [facility] [place] [address] PCP - General Family Medicine 10/07/22 documented as of this encounter
--- OUTSIDE RECORDS SUMMARY | 2023-05-29 14:13 | External Medical Summary | Summary of Care ---
Author Name Unknown Organization [facility] Address [address] [facility] [address] Phone [phone] Care Team Providers Care Recyclable Materials Collector Name Role Phone Escobar Iglesias DO Primary Care Provider Reason for Visit * Reason Onset Date Comments Advice 03/13/2023 Encounter Details Date Type Department Care Team (Late st Contact Info) Description 03/13/2023 Telephone Gastroenterology, [facility] [address] [place] [address] Andreea Goodman DO [address] [place] [address] Advice Allergies Active Allergy Reactions Criticality Noted [...] HCl 0.1 % Nasal Solution Administer 1 [place] into nostril in the morning and 1 [place] before bedtime. 0 Active Escitalopram Oxalate 10 [...] Thursday but he was recently hospitalized at [facility] for a blood clot and is now [...] Thursday but he was recently hospitalized at [facility] for a blood clot and is now taking Eliquis, Hydrochlorothiazide and Spironolactone. Pt spouse is asking if it is ok to still get the Hep A vaccine with the change in medications. Please call Marlen at [phone] ThanksDavid, t Nursing Aide Centralized Clinical Pharmacy Services (CCPS) (formerly Telepharmacy). 03/13/2023,9:47 AM documented in this encounter Plan of Treatment Upcoming Encounters Date Type Department Care Team (Late st Contact Info) Description 04/24/2023 1:45 PM EST Immunization/Injection Hematology/Oncology Treatment, [place] [address] [place] [address] Nurse, Med 4 200 [facility] [address] 05/04/2023 11:00 AM EST Laboratory Laboratory, [facility] [place] 132 [facility] [place] [phone] Betito Huerta 132 [facility] [place] [address] 05/04/2023 11:30 AM EST Imaging Radiology [facility] [place] [address] 05/05/2023 1:30 PM EST Hem/Onc Treatment Hematology/Oncology Treatment, [place] 200 [place] [address] Alejandrina, Chair 4 Hem Onc [address] [place], [place] [address] 05/13/2023 3:00 PM EST Office Visit Palliative Medicine [address], [place] [address] Nan Vargas MD [address] [place] [address] [place] [address] 05/18/2023 11:00 AM EST Laboratory Laboratory, [facility] [phone] [facility] [address] 05/19/2023 11:15 AM EST Office Visit Hematology/Oncology [facility] 200 [facility] [place], [place] [address] Jeff Robbins MD 200 [facility] [place] [address] 05/19/2023 11:45 AM EST Hem/Onc Treatment Hematology/Oncology Treatment, [address] [place] [address] Alejandrina, Chair 8 Hem Onc [address] [place], [place] [address] 06/25/2023 2:40 PM EST Telemedicine Hepatology, [facility] 132 [facility] [place] [address] Andreea Goodman DO 132 [facility] [place] [address] Health Maintenance Due Date Last Done Comments [...] this encounter Medical Devices Implanted Type Area Respiratory Care Assistant Device Identifier Shelf Expiration Date Model / Serial / Lot Power Port 8fr Sngl Lumen Plas - [id number] Implanted:Qty : 1 on 10/22/2022 by James Baeza DO at OR [facility] Right: Chest CR BARD : PERIPHERAL VASCULAR [id number] 02/25/2024 [id number] / / [id number] documented as of this encounter Advance Directives Documents on File Type Date Recorded Patient Back Hoe Machine Operator Expl 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 Question Answer Comments Discussion of Advance Directives occurred with: Patient Care Teams Recyclable Materials Collector Relationship Specialty Start Date End Date Escobar Iglesias DO [facility] [place] [address] PCP - General Family Medicine 10/07/22 documented as of this encounter
--- OUTSIDE RECORDS SUMMARY | 2023-05-29 14:13 | External Medical Summary | Summary of Care ---
Author Name Unknown Organization [facility] Address [address] [place] [address] Phone [phone] Care Team Providers Care Resident Buyer Name Role Phone Escobar Iglesias DO Primary Care Provider Reason for Visit * Reason Comments Procedure Pump disconnect * Episode Based Medications (Routine) - Authorized Specialty Diagnoses / Procedures Referred By Contac t Referred To Contact Diagnoses 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) Encounter for antineoplastic chemotherapy Procedures DC LEUCOVORIN CALCIUM INJECTION DC PALONOSETRON HCL DC FLUOROURACIL INJECTION DC OXALIPLATIN Jeff Robbins MD [address] [place] [address] Anc Hem/Onc [facility] [place] DEPT CLOSED - 03/10/23 [address] [place] [address] Referral ID Status Reason Start Date Expiration Date V isits Requested Visits Authorized [id number] Authorized 01/26/2023 04/25/[phone] Encounter Details Date Type Department Care Team (Latest Contact Info) Description 04/24/2023 1:45 PM EST Immunization/ Injection Hematology/Oncology Treatment, [place] [address] [place] [address] Nurse, Med [address] [place] [address] 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)*; Malignant neoplasm of transverse colon (HCC); Encounter for antineoplastic chemotherapy; Encounter for adjustment and management of vascular access device Allergies Active Allergy Reactions Criticality Noted Date [...] HCl 0.1 % Nasal Solution Administer 1 [place] into nostril in the morning and 1 [place] before bedtime. 0 Active Escitalopram Oxalate 10 [...] before bedtime. 270 Tablet 0 04/22/2023 Active documented as of this encounter (statuses [...] this encounter Nursing Notes * Vanna Bates, RN - 04/24/2023 2:23 PM EST Chair 9, pump disconnect. Pt has no acute concerns to report today; pt denies pain. CADD pump indicates infusion is complete;5FU IV bag is empty. Line clamped/disconnected from VAD. VAD flushed with 10 ml NSS and Heparin 5 ml (100 units/ml). Pederson needle removed intact. Pt discharged in stable condition with son. documented in this encounter Plan of Treatment Upcoming Encounters Date Type Department Care Team (Late st Contact Info) Description 05/04/2023 11:00 AM EST Laboratory Laboratory, [facility] 132 [facility] [place] [phone] [facility] [address] [place] [address] 05/04/2023 11:30 AM EST Imaging Radiology [facility] 1st Floor, [place] [address] [place] [address] 05/05/2023 1:30 PM EST Hem/Onc Treatment Hematology/Oncology Treatment, [place] [address] [place] [address] Alejandrina, Chair 4 Hem Onc [address] [place] [address] 05/13/2023 3:00 PM EST Office Visit Palliative Medicine [facility] 200 [place] [address] Nan Vargas MD [address] [place] [address] 05/18/2023 11:00 AM EST Laboratory Laboratory, [facility] 132 [place] [phone] [facility] 132 [place] [address] 05/19/2023 11:15 AM EST Office Visit Hematology/Oncology [address] [place] [address] Jeff Robbins MD [address] [place] [address] [place] [address] 05/19/2023 11:45 AM EST Hem/Onc Treatment Hematology/Oncology [address] [place] [address] Alejandrina, Chair 8 Hem Onc [address] [place] [address] 06/25/2023 2:40 PM EST Telemedicine Hepatology, [facility] 132 [facility] [address] Andreea Goodman DO 132 [facility] [place] [address] Health Maintenance Due Date Last Done Comments [...] this encounter Medical Devices Implanted Type Area Truck Mechanic Device Identifier Shelf Expiration Date Model / Serial / Lot Power Port 8fr Sngl Lumen Plas - [id number] Implanted:Qty : 1 on 10/22/2022 by James Baeza DO at OR [facility] Right: Chest CR BARD : PERIPHERAL VASCULAR [id number] 02/25/2024 [id number] / / [id number] documented as of this encounter Visit Diagnoses Diagnosis 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)- Primary 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) Malignant neoplasm of transverse colon Encounter for antineoplastic chemotherapy Encounter for adjustment and management of vascular access device documented in this encounter Administered Medications Active Administered Medications - up to 3 most recent administrations Medication Order MAR Action Action Date Dose Rate Site hEParin 100 UNIT/ML Lock Flush inj 500 Units 500 Units (5 mL), IV Lock, PRN Other, IV Flush, Starting on Thu04/24/23 at 1344, Until 04/25/23 at 1343, For 24 hours, Do not flush if lock, PICC, or central line not in place; IV infusing or unable to flush. Given 04/24/2023 1:48 PM EST 500 Units sodium chloride 0.9 % flush central line 10 mL 10 mL, IV Push, PRN Other, IV Flush, Starting on Thu04/24/23 at 1344, Until 04/25/23 at 1343, For 24 hours, Do not flush if lock, PICC, or central line not in place; IV infusing or unable to flush. Given 04/24/2023 1:48 PM EST 10 mL documented in this encounter Advance Directives Documents on File Type Date Recorded Patient Customs House Broker Expl 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 Question Answer Comments Discussion of Advance Directives occurred with: Patient Care Teams Resident Buyer Relationship Specialty Start Date End Date Escobar Iglesias DO 1400 [facility] [place] [address] PCP - General Family Medicine 10/07/22 documented as of this encounter
--- OUTSIDE RECORDS SUMMARY | 2023-05-29 14:13 | External Medical Summary | Summary of Care ---
Author Name Unknown Organization [facility] Address [address] [facility] [address] Phone [phone] Care Team Providers Care Claim Representative Name Role Phone Escobar Iglesias DO Primary Care Provider Reason for Visit * Reason Onset Date Comments Advice 03/13/2023 Encounter Details Date Type Department Care Team (Late st Contact Info) Description 03/13/2023 Telephone Gastroenterology, [facility] [address] [place] [address] Andreea Goodman DO [address] [place] [address] Advice Allergies Active Allergy Reactions Criticality Noted [...] HCl 0.1 % Nasal Solution Administer 1 [place] into nostril in the morning and 1 [place] before bedtime. 0 Active Escitalopram Oxalate 10 [...] week) pt sees our oncology dept at [facility]. Pt and pt worried [...] Thursday but he was recently hospitalized at [facility] for a blood clot and is [...] Thursday but he was recently hospitalized at [facility] for a blood clot and is now taking Eliquis, Hydrochlorothiazide and Spironolactone. Pt spouse is asking if it is ok to still get the Hep A vaccine with the change in medications. Please call Marlen at [phone] David Westbrook Pht Vein Pumper Centralized Clinical Pharmacy Services (CCPS) (formerly Telepharmacy). 03/13/2023,9:47 AM documented in this encounter Plan of Treatment Upcoming Encounters Date Type Department Care Team (Late st Contact Info) Description 04/24/2023 1:45 PM EST Immunization/Injection Hematology/Oncology Treatment, [address] [place] [address] Nurse, Med [address] [place] [address] [place] [address] 05/04/2023 11:00 AM EST Laboratory Laboratory, [address] [phone] Betito Huerta [address] [address] 05/04/2023 11:30 AM EST Imaging Radiology [facility] 1st Floor, [place] 132 [facility] [place] [address] 05/05/2023 1:30 PM EST Hem/Onc Treatment Hematology/Oncology Treatment, [address] [address] Alejandrina, Chair 4 Hem Onc [address] [place] [address] 05/13/2023 3:00 PM EST Office Visit Palliative Medicine [address] [address] Nan Vargas MD [address] [place] [address] [place] [id number] 05/18/2023 11:00 AM EST Laboratory Laboratory, [facility] 132 [facility] [place] [phone] [facility] [address] [place] [address] 05/19/2023 11:15 AM EST Office Visit Hematology/Oncology [facility] Alejandrina [place] [address] [place] [address] Jeff Robbins MD [address] [place] [address] 05/19/2023 11:45 AM EST Hem/Onc Treatment Hematology/Oncology Treatment, [place] [address] [place] [address] Alejandrina, Chair 8 Hem Onc [facility] 200 [facility] [place] [address] 06/25/2023 2:40 PM EST Telemedicine Hepatology, [facility] [address] [place] [address] Andreea Goodman DO [address] [place] [address] Health Maintenance Due Date Last Done Comments [...] this encounter Medical Devices Implanted Type Area All Around Gear Machine Operator Device Identifier Shelf Expiration Date Model / Serial / Lot Power Port 8fr Sngl Lumen Plas - [id number] Implanted:Qty : 1 on 10/22/2022 by James Baeza DO at OR [facility] Right: Chest CR BARD : PERIPHERAL VASCULAR [id number] 02/25/2024 [id number] / / [id number] documented as of this encounter Advance Directives Documents on File Type Date Recorded Patient Tandem Mill Roller Expl 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 Question Answer Comments Discussion of Advance Directives occurred with: Patient Care Teams Claim Representative Relationship Specialty Start Date End Date Escobar Iglesias DO 1400 [facility] [place] [address] PCP - General Family Medicine 10/07/22 documented as of this encounter
--- OUTSIDE RECORDS SUMMARY | 2023-05-29 14:13 | External Medical Summary | Summary of Care ---
Author Name Unknown Organization [facility] Address [address] [facility] [address] Phone [phone] Care Team Providers Care Project Mgr Name Role Phone Escobar Iglesias DO Primary Care Provider Reason for Visit * Reason Onset Date Comments Advice 03/13/2023 Encounter Details Date Type Department Care Team (Late st Contact Info) Description 03/13/2023 Telephone Gastroenterology, [facility] [address] [place] [address] Andreea Goodman DO [address] [place] [address] Advice Allergies Active Allergy Reactions Criticality Noted [...] HCl 0.1 % Nasal Solution Administer 1 [place] into nostril in the morning and 1 [place] before bedtime. 0 Active Escitalopram Oxalate 10 [...] week) pt sees our oncology dept at [facility]. Pt and pt worried that it will really effect how he feels if he gets on a week that he is receiving chemo, should they clarify getting this with the oncology department. ? Charisse or kailee? Any concerns about getting this vaccine while [...] Thursday but he was recently hospitalized at [facility] for a blood clot and is now [...] Thursday but he was recently hospitalized at [facility] for a blood clot and is now taking Eliquis, Hydrochlorothiazide and Spironolactone. Pt spouse is asking if it is ok to still get the Hep A vaccine with the change in medications. Please call Marlen at [phone] David Westbrook, t Pluck Trimmer Centralized Clinical Pharmacy Services (CCPS) (formerly Telepharmacy). 03/13/2023,9:47 AM documented in this encounter Plan of Treatment Upcoming Encounters Date Type Department Care Team (Late st Contact Info) Description 04/24/2023 1:45 PM EST Immunization/Injection Hematology/Oncology Treatment, [place] 200 [place] [address] Nurse, Med [address] [facility], [place] [address] 05/04/2023 11:00 AM EST Laboratory Laboratory, [facility] 132 [facility] [place] [phone] Betito Huerta [facility] 132 [facility] [address] 05/04/2023 11:30 AM EST Imaging Radiology [facility] 132 [place] [address] 05/05/2023 1:30 PM EST Hem/Onc Treatment Hematology/Oncology Treatment, [address] [place] [address] Alejandrina, Chair 4 Hem Onc [address] [place], [place] [address] 05/13/2023 3:00 PM EST Office Visit Palliative Medicine [address] [place] [address] Nan Vargas MD [address] [place] [address] 05/18/2023 11:00 AM EST Laboratory Laboratory, [facility] 132 [facility] [place] [phone] Betito Huerta 132 [facility] [place] [address] 05/19/2023 11:15 AM EST Office Visit Hematology/Oncology [address] [place] [address] Jeff Robbins MD [address] [place] [address] 05/19/2023 11:45 AM EST Hem/Onc Treatment Hematology/Oncology Treatment, [place] [address] [place] [address] Alejandrina, Chair 8 Hem Onc [address] [place], [place] [address] 06/25/2023 2:40 PM EST Telemedicine Hepatology, [facility] [address] [place] [address] Andreea Goodman DO [address] [place] [address] Health Maintenance Due Date Last Done Comments [...] this encounter Medical Devices Implanted Type Area Geophysical Laboratory Chief Device Identifier Shelf Expiration Date Model / Serial / Lot Power Port 8fr Sngl Lumen Plas - [id number] Implanted:Qty : 1 on 10/22/2022 by James aBeza DO at OR [facility] Right: Chest CR BARD : PERIPHERAL VASCULAR [id number] 02/25/2024 [id number] / / [id number] documented as of this encounter Advance Directives Documents on File Type Date Recorded Patient Physiological Chemist Expl 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 Question Answer Comments Discussion of Advance Directives occurred with: Patient Care Teams Project Mgr Relationship Specialty Start Date End Date Escobar Iglesias DO 1400 [facility] [place] [address] PCP - General Family Medicine 10/07/22 documented as of this encounter
--- OUTSIDE RECORDS SUMMARY | 2023-05-29 14:13 | External Medical Summary | Summary of Care ---
Author Name Unknown Organization [facility] Address [address] [facility] [address] Phone [phone] Care Team Providers Care High Density Talc Coater Operator Name Role Phone Escobar Iglesias DO Primary Care Provider Reason for Visit * Reason Onset Date Comments Advice 04/28/2023 Encounter Details Date Type Department Care Team (Late st Contact Info) Description 04/28/2023 Telephone Gastroenterology, [facility] [address] [place] [address] Andreea Goodman DO [address] [place] [address] Advice Allergies Active Allergy Reactions Criticality Noted [...] HCl 0.1 % Nasal Solution Administer 1 [place] into nostril in the morning and 1 [place] before bedtime. 0 Active Escitalopram Oxalate 10 [...] encounter Miscellaneous Notes * Telephone Encounter - Nandini Fulton OSA - 04/28/2023 10:18 AM EST of patient called for question on her hari [email or web address] documented in this encounter Plan of Treatment Upcoming Encounters Date Type Department Care Team (Late st Contact Info) Description 05/04/2023 11:00 AM EST Laboratory Laboratory, [facility] 132 [facility] [place] [phone] Betito Huerta [address] [place] [address] 05/04/2023 11:30 AM EST Imaging Radiology [facility] 132 [facility] [place] [address] 05/05/2023 1:30 PM EST Hem/Onc Treatment Hematology/Oncology Treatment, [address] [place] [address] Alejandrina, Chair 4 Hem Onc [address] [place] [address] 05/13/2023 3:00 PM EST Office Visit Palliative Medicine [address] [place] [address] Nan Vargas MD [address] [place] [address] 05/18/2023 11:00 AM EST Laboratory Laboratory, [facility] 132 [facility] [place] [phone] Betito Huerta 132 [facility] [place] [address] 05/19/2023 11:15 AM EST Office Visit Hematology/Oncology [address] [place] [address] Jeff Robbins MD 200 [facility] [place] [address] 05/19/2023 11:45 AM EST Hem/Onc Treatment Hematology/Oncology Treatment, [place] [address] [place] [address] Alejandrina, Chair 8 Hem Onc [address] [place] [address] 06/25/2023 2:40 PM EST Telemedicine Hepatology, [facility] [address] [place] [address] Andreea Goodman, DO [address] [place] [address] Health Maintenance Due Date Last Done Comments [...] this encounter Medical Devices Implanted Type Area Principal Technologist Device Identifier Shelf Expiration Date Model / Serial / Lot Power Port 8fr Sngl Lumen Plas - [id number] Implanted:Qty : 1 on 10/22/2022 by James Baeza DO at OR [facility] Right: Chest CR BARD : PERIPHERAL VASCULAR [id number] 02/25/2024 [id number] / / [id number] documented as of this encounter Advance Directives Documents on File Type Date Recorded Patient County Extension Agent Expl 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 Question Answer Comments Discussion of Advance Directives occurred with: Patient Care Teams High Density Talc Coater Operator Relationship Specialty Start Date End Date Escobar Iglesias DO [address] [facility] [place] [address] PCP - General Family Medicine 10/07/22 documented as of this encounter
--- OUTSIDE RECORDS SUMMARY | 2023-05-29 14:13 | External Medical Summary | Summary of Care ---
Author Name Unknown Organization [facility] Address [address] [place] [address] Phone [phone] Care Team Providers Care Lasting Room Machine Operator Name Role Phone Escobar Iglesias DO Primary Care Provider Reason for Visit * Reason Onset Date Comments Medication Refill 04/30/2023 Encounter Details Date Type Department Care Team (Late st Contact Info) Description 04/30/2023 Refill Hematology/Oncology [facility] 200 [facility] [place] [address] Jeff Robbins MD 200 [facility] [place] [address] Acute deep vein thrombosis (DVT) of iliac vein of right lower extremity (HCC) Allergies Active Allergy Reactions Criticality Noted Date Comments Prochlorperazine Edema face/lips/tongue High 023 BODY DYSFUNCTION documented as of this encounter (statuses as of 04/30/2023) Medications Medication Sig Dispensed Refills Start Date [...] HCl 0.1 % Nasal Solution Administer 1 Kismet into nostril in the morning and 1 Kismet before bedtime. 0 Active Escitalopram Oxalate 10 [...] twice daily 60 Tablet 2 04/30/2023 Active Apixaban 5 MG Oral Tablet (Eliquis)Indicati ons:Acute deep vein thrombosis (DVT) of iliac vein of right lower extremity (HCC) Take 10 mg (2 tablets) twice daily for 7 days followed by 5 mg (one tablet) twice daily 50 Tablet 2 01/27/2023 4 Discontinue d(Refill) documented as of this encounter (statuses as of 04/30/2023) Active Problems Problem Noted Date Diagnosed Date [...] as of this encounter (statuses as of 04/30/2023) Social History Tobacco Use Types Packs/Day Years [...] Miscellaneous Notes * Telephone Encounter - Marcia Jarquin RN - 04/30/2023 10:15 AM ESTPending Prescriptions: Disp Refills Apixaban 5 MG Oral Tablet (Eliquis) 60 Tab*2 Sig: Take 5 mg (one tablet) twice daily * Telephone Encounter - Shabnam Krishnamurthy, front office clerk - 04/30/2023 9:14 AM EST Patient is up to date for office visits. Pt will be out tomorrow, pt spouse wanted sig updated to 1 twice daily as pended, please approve ifappropriate. Pending Prescriptions: Disp Refills Apixaban 5 MG Oral Tablet (Eliquis) 60 Tab*2 Sig: Take 5 mg (one tablet) twice daily Last Visit: 04/01/2023 (in office), Visit date not found (telemedicine) Next Visit: 05/19/2023 If no future appointments scheduled, and last appointment is greater than a year ago, please schedule patient for a follow-up appointment Last date the medication was ordered: 01/27/2023 Pharmacy: [id number] [address] [place] Is this request for a controlled substance?No it is not controlled. Urine Drug Screen:No results found for this or any previous visit. Patient Phone Numbers Labs: Lab Results Component Value Date/Time CREAT 0.9 04/21/2023 10:48 AM POTASSIUM 4.3 04/21/2023 10:48 AM LDLCALC 129 07/22/2022 10:44 AM ALT 31 04/21/2023 10:48 AM documented in this encounter Plan of Treatment Upcoming Encounters Date Type Department Care Team (Late st Contact Info) Description 05/04/2023 11:00 AM EST Laboratory Laboratory, [facility] 132 [facility] [place] [address] Betito Huerta [facility] [place] [address] 05/04/2023 11:30 AM EST [facility] 132 [facility] [place] [address] 05/05/2023 1:30 PM EST Hem/Onc Treatment Hematology/Oncology Treatment, [address] [place] [address] Alejandrina, Chair 4 Hem [address]c [address] [address] 05/13/2023 3:00 PM EST Office Visit Palliative Medicine [address] [place] [address] Nan Vargas MD [address] [place] [address] 05/18/2023 11:00 AM EST Laboratory Laboratory, [facility] 132 [facility] [place] [phone] Betito Huerta [address] [facility] [place] [address] 05/19/2023 11:15 AM EST Office Visit Hematology/Oncology [address] [address] Jeff Robbins MD [facility] [address] 05/19/2023 11:45 AM EST Hem/Onc Treatment Hematology/Oncology Treatment, [place] [address] [place] [address] Alejandrina, Chair 8 Hem Onc Scenery [address] [place] [address] 06/25/2023 2:40 PM EST Telemedicine Hepatology, [facility] [address] [place] [address] Andreea Goodman, [address] [place] [address] Health Maintenance Due Date Last Done Comments [...] this encounter Medical Devices Implanted Type Area Table Machine Operator Device Identifier Shelf Expiration Date Model / Serial / Lot Power Port 8fr Sngl Lumen Plas - [id number] Implanted:Qty : 1 on 10/22/2022 by James Baeza DO at OR [facility] Right: Chest CR BARD : PERIPHERAL VASCULAR [id number] 02/25/2024 [id number] / / [id number] documented as of this encounter Visit Diagnoses Diagnosis Acute deep vein thrombosis (DVT) of iliac vein of right lower extremity (HCC) documented in this encounter Advance Directives Documents on File Type Date Recorded Patient Embosser Apprentice Expl 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 Question Answer Comments Discussion of Advance Directives occurred with: Patient Care Teams Lasting Room Machine Operator Relationship Specialty Start Date End Date Escobar Iglesias DO [address] [facility] [place] [address] PCP - General Family Medicine 10/07/22 documented as of this encounter
--- OUTSIDE RECORDS SUMMARY | 2023-05-29 14:13 | External Medical Summary | Summary of Care ---
Author Name Unknown Organization [facility] Address [address] [place] [address] Phone [phone] Care Team Providers Care Clothing Trades Workers Name Role Phone Escobar Iglesias DO Primary Care Provider Reason for Visit * Reason Onset Date Comments Medication Refill 04/22/2023 Encounter Details Date Type Department Care Team (Late st Contact Info) Description 04/22/2023 Refill Palliative Medicine, [facility] 400 [facility] 5th [place] [address] Eli Mckeon CRNP [address] [place] [address] Allergies Active Allergy Reactions Criticality [...] HCl 0.1 % Nasal Solution Administer 1 Dawson into nostril in the morning and 1 Dawson before bedtime. 0 Active Escitalopram Oxalate 10 [...] before bedtime. 270 Tablet 0 04/22/2023 Active busPIRone HCl 10 MG Oral Tablet (Buspar) Take 1 Tablet by mouth in the morning and 1 Tablet at noon and 1 Tablet before bedtime. 270 Tablet 0 01/19/2023 3 Discontinue d(Refill) Hospital, Clinic, or Other Facility Administered Medication [...] (15 years old or older) No 09/25/19 23 Cognitive Status Response Date of Assessm ent Because of a physical, menta l, or emotional condition, do you have serious difficulty concentrating, remembering, or making decisions? (5 years old or older) No 09/24/2022 documented as of this encounter Miscellaneous Notes * Telephone Encounter - Jamel Wilder MD - 04/22/2023 9:52 AM EST Signed Prescriptions: Disp Refills busPIRone HCl 10 MG Oral Tablet (Buspar) 270 Ta*0 Sig: Take 1 Tablet by mouth in the morning and 1 Tablet at noon and 1 Tablet before bedtime. Authorizing Provider: JAMEL WILDER * Telephone Encounter - Jonna [place] LPN - 04/22/2023 9:31 AM ESTPending Prescriptions: Disp Refills busPIRone HCl 10 MG Oral Tablet (Buspar) 270 Ta*0 Sig: Take 1 Tablet by mouth in the morning and 1 Tablet at noon and 1 Tablet before bedtime. * Telephone Encounter - Carolyn Cardona CPhT - 04/22/2023 9:30 AM EST Did you pend patient's preferred pharmacy and medication before forwarding?yes Pharmacy: [id number] [address] [place] [address] Pending Prescriptions: Disp Refills busPIRone HCl 10 MG Oral Tablet (Buspar) 270 Ta*0 Sig: Take 1 Tablet by mouth in the morning and 1 Tablet at noon and 1 Tablet before bedtime. Last Visit: 10/22/2022 (in office), 03/18/2023 (telemedicine) Next Visit: Visit date not found If no future appointments scheduled, and last appointment is greater than a year ago, please schedule patient for a follow-up appointment Last date the medication was ordered: 01/19/2023 Is this request for a controlled substance?No [...] PM EST Hem/Onc Treatment Hematology/Oncolog y Treatment, [address] [address] Alejandrina, Chair [address] [place] [address] 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)*; Malignant neoplasm of transverse colon (HCC); Encounter for antineoplastic chemotherapy 05/04/2023 11:00 AM EST Laboratory Laboratory, [facility] 132 [facility] [place] [phone] Betito Huerta [facility] 132 [facility] [place] [address] 05/04/2023 11:30 AM EST Imaging Radiology [facility] 1st [facility] [place] 132 [facility] [place] [address] 05/05/2023 1:30 PM EST Hem/Onc Treatment Hematology/Oncolog y Treatment, [place] 200 [facility] [place] [address] Alejandrina, Chair 4 Hem Onc [address] [place], [place] [address] 05/13/2023 3:00 PM EST Office Visit Palliative Medicine [facility] 200 [facility], [place] [address] Jamel Wilder MD [address] [place] [address] [place] [address] 05/18/2023 11:00 AM EST Laboratory Laboratory, [facility] [phone] [facility] 132 [facility] [address] 05/19/2023 11:15 AM EST Office Visit Hematology/Oncolog y [address] [place], [place] [address] Jeff Robbins MD 200 [facility], [place] [address] 05/19/2023 11:45 AM EST Hem/Onc Treatment Hematology/Oncolog y Treatment, [place] 200 [facility], [place] [address] Alejandrina, Chair 8 Hem Onc [address] [place], [place] [address] 06/25/2023 2:40 PM EST Telemedicine Hepatology, [facility] [place] [address] Andreea Goodman DO [address] [place] [address] Health Maintenance Due Date Last Done Comments [...] this encounter Medical Devices Implanted Type Area Ingredient Handler Device Identifier Shelf Expiration Date Model / Serial / Lot Power Port 8fr Sngl Lumen Plas - [id number] Implanted:Qty : 1 on 10/22/2022 by James Baeza DO at OR [facility] Right: Chest CR BARD : PERIPHERAL VASCULAR [id number] 02/25/2024 [id number] / / [id number] documented as of this encounter Advance Directives Documents on File Type Date Recorded Patient Radius Grinder Expl 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 Question Answer Comments Discussion of Advance Directives occurred with: Patient Care Teams Clothing Trades Workers Relationship Specialty Start Date End Date Escobar Iglesias DO 1400 [facility] [place] [address] PCP - General Family Medicine 10/07/22 documented as of this encounter
--- OUTSIDE RECORDS SUMMARY | 2023-05-29 14:14 | External Medical Summary ---
Author Name Unknown Address Unknown Organization K09:[facility] [place] [address] Laboratory Report Ordering Provider Test Date Status RASHAAD BARAHONA 04/21/2023 10:48:00 Final Observation Date Value Abnormality Reference (Units ) Status BUN 04/21/2023 10:48:00 21 Above high normal 6-20 (mg/dL) Final Creatinine 04/21/2023 10:48:00 0.9 0.6-1.2 (mg/dL) Final Glomerular filtration rate/1.73 sq M.predicted [Volume Rate/Area] in Serum, Plasma or Blood by Creatinine-based formula (CKD-EPI) 04/21/2023 10:48:00 89 >=60 (mL/min) Final eGFR is calculated based on the CKD-EPI 2020 equation SODIUM 04/21/2023 10:48:00 136 135-146 (m mol/L) Final Potassium 04/21/2023 10:48:00 4.3 3.5-5.1 (m mol/L) Final Cl 04/21/2023 10:48:00 103 98-107 (mm ol/L) Final CO2 04/21/2023 10:48:00 22 22-32 (mmo l/L) Final Anion gap 04/21/2023 10:48:00 11 7-15 (mmol /L) Final Glucose 04/21/2023 10:48:00 103 70-120 (mg /dL) Final Albumin 04/21/2023 10:48:00 2.9 Below low normal 3.8 -5.0 (g/dL) Final AST (Aspartate aminotransferase) 04/21/2023 10:48:00 76 Above high normal 10-50 (U/L) Final Alk Phos 04/21/2023 10:48:00 518 Above high normal 35 -130 (U/L) Final Bilirubin, Total 04/21/2023 10:48:00 1.0 <=1 .2 (mg/dL) Final Calcium 04/21/2023 10:48:00 9.1 8.4-10.2 ( mg/dL) Final Protein 04/21/2023 10:48:00 6.5 6.0-8.3 (g /dL) Final ALT (Alanine aminotransferase) 04/21/2023 10:48:00 31 10-50 (U/L) Tres ordonez Performing Location [facility] [address] [place] [address]
--- OUTSIDE RECORDS SUMMARY | 2023-05-29 14:14 | External Medical Summary | Summary of Care ---
Author Name Unknown Organization [facility] Address [address] [place] [address] Phone [phone] Care Team Providers Care Analog Design Engineer Name Role Phone Escobar Iglesias DO Primary Care Provider Reason for Visit * Reason Comments Procedure Pump disconnect/port flush * Episode Based Medications (Routine) - Authorized Specialty Diagnoses / Procedures Referred By Contac t Referred To Contact Diagnoses 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) Encounter for antineoplastic chemotherapy Procedures MI LEUCOVORIN CALCIUM INJECTION MI PALONOSETRON HCL MI FLUOROURACIL INJECTION MI OXALIPLATIN Jeff Robbins MD 200 [facility] [place] [address] Anc Hem/Onc Tony [facility] DEPT CLOSED - 03/10/23 [address] [place] [address] Referral ID Status Reason Start Date Expiration Date V isits Requested Visits Authorized [id number] Authorized 01/26/2023 04/25/[phone] Encounter Details Date Type Department Care Team (Latest Contact Info) Description 04/09/2023 1:45 PM EST Immunization/ Injection Hematology/Oncology Treatment, [place] [address] [place] [address] Nurse, Med [address] [place] [address] 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)*; Malignant neoplasm of transverse colon (HCC); Encounter for antineoplastic chemotherapy; Encounter for adjustment and management of vascular access device Allergies Active Allergy Reactions Criticality Noted Date Comments Prochlorperazine Edema face/lips/tongue High 023 BODY DYSFUNCTION documented as of this encounter (statuses as of 04/09/2023) Medications Medication Sig Dispensed Refills Start Date [...] HCl 0.1 % Nasal Solution Administer 1 [place] into nostril in the morning and 1 [place] before bedtime. 0 Active Escitalopram Oxalate 10 [...] Pain, Moderate. 60 Tablet 0 04/01/2023 Active documented as of this encounter (statuses as of 04/09/2023) Active Problems Problem Noted Date Diagnosed Date Dehydration 01/05/2023 Hypokalemia 01/05/2023 Metastasis to liver 10/07/2022 Malignant neoplasm of transverse colon Encounter for antineoplastic chemotherapy 2022 JOY (generalized anxiety disorder) 09/26/2022 Severe protein-energy malnutrition 09/25/2022 Abdominal mass, right upper quadrant 09/24/2022 Colonic mass 09/24/2022 Elevated LFTs 09/24/2022 Iron deficiency anemia 09/24/2022 ANTHONY (acute kidney injury) 09/24/2022 documented as of this encounter (statuses as of 04/09/2023) Social History Tobacco Use Types Packs/Day Years [...] Nursing Notes * Vanna Bates, RN - 04/09/2023 3:51 PM EST Chair 7, pump disconnect. CADD indicates infusion is complete/reservoir volume=0ml. VAD flushed with 10 ml NSS and Heparin 5 ml (100 units/ml). Pederson needle removed intact. Pt reports fatigue today, but otherwise has no acute concerns at this time. Pt discharged in stablecondition. documented in this encounter Plan of Treatment Upcoming Encounters Date Type Department Care Team (Late st Contact Info) Description 04/21/2023 11:00 AM EST Laboratory Laboratory, [address] [phone] Betito Huerta [address] [address] 04/22/2023 2:00 PM EST Hem/Onc Treatment Hematology/Oncology Treatment, [place] [address] [place] [address] Alejandrina, Chair 3 Hem Onc Scenery [address] [place] [address] 05/04/2023 11:00 AM EST Laboratory Laboratory, [facility] 132 [facility] [place] [phone] Betito Huerta [facility] [place] [address] 05/04/2023 11:30 AM EST [facility] 132 [facility] [place] [address] 05/05/2023 1:30 PM EST Hem/Onc Treatment Hematology/Oncology Treatment, [place] 200 [facility], [place] [address] Alejandrina, Chair 4 Hem Onc Scenery [address] [place] [address] 05/18/2023 11:00 AM EST Laboratory Laboratory, [facility] [place] [phone] Betito Huerta [facility] [place] [address] 05/19/2023 11:15 AM EST Office Visit Hematology/Oncology [facility] [address] [place] [address] Jeff Robbins MD [address] [place], [place] [address] 05/19/2023 11:45 AM EST Hem/Onc Treatment Hematology/Oncology Treatment, [place] 200 [facility], [place] [address] Alejandrina, Chair 8 Hem Onc Scenery [address] [place], [place] [address] 06/25/2023 2:40 PM EST Telemedicine Hepatology, [facility] 132 [facility] [place] [address] Andreea Goodman DO 132 [facility] [place] [address] Health Maintenance Due Date Last Done Comments [...] this encounter Medical Devices Implanted Type Area Stocking Inspector Device Identifier Shelf Expiration Date Model / Serial / Lot Power Port 8fr Sngl Lumen Plas - [id number] Implanted:Qty : 1 on 10/22/2022 by James Baeza DO at OR [facility] Right: Chest CR BARD : PERIPHERAL VASCULAR [id number] 02/25/2024 [id number] / / [id number] documented as of this encounter Visit Diagnoses [...] PRN Other, IV Flush, Starting on Mamie 04/09/23 at 1352, Until 04/10/23 at 1351, For 24 hours, Do not flush if lock, PICC, or central line not in place; IV infusing or unable to flush. Given 04/09/2023 1:52 PM EST 500 Units sodium chloride 0.9 % flush central line 10 mL 10 mL, IV Push, PRN Other, IV Flush, Starting on Mamie 04/09/23 at 1352, Until 04/10/23 at 1351, For 24 hours, Do not flush if lock, PICC, or central line not in place; IV infusing or unable to flush. Given 04/09/2023 1:52 PM EST 10 mL documented in this encounter Advance Directives Documents on File Type Date Recorded Patient Shirt Cleaner Expl 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 Question Answer Comments Discussion of Advance Directives occurred with: Patient Care Teams Analog Design Engineer Relationship Specialty Start Date End Date Escobar Iglesias DO 1400 [facility] [place] [address] PCP - General Family Medicine 10/07/22 documented as of this encounter
--- OUTSIDE RECORDS SUMMARY | 2023-05-29 14:14 | External Medical Summary | Summary of Care ---
Author Name Unknown Organization [facility] Address [address] [facility] [address] Phone [phone] Care Team Providers Care Eligibility Specialist Name Role Phone Escobar Iglesias DO Primary Care Provider Reason for Visit * Reason Onset Date Comments Advice 03/13/2023 Encounter Details Date Type Department Care Team (Late st Contact Info) Description 03/13/2023 Telephone Gastroenterology, [facility] [address] [place] [address] Andreea Goodman DO [address] [place] [address] Advice Allergies Active Allergy Reactions Criticality Noted Date Comments Prochlorperazine Edema face/lips/tongue High 023 BODY DYSFUNCTION documented as of this encounter (statuses as of 04/17/2023) Medications Medication Sig Dispensed Refills Start Date [...] HCl 0.1 % Nasal Solution Administer 1 [place] into nostril in the morning and 1 [place] before bedtime. 0 Active Escitalopram Oxalate 10 [...] twice daily 50 Tablet 2 01/27/2023 Active documented as of this encounter (statuses as of 04/17/2023) Active Problems Problem Noted Date Diagnosed Date [...] as of this encounter (statuses as of 04/17/2023) Social History Tobacco Use Types Packs/Day Years [...] Miscellaneous Notes * Telephone Encounter - Marcia Yuen OSA [...] Thursday but he was recently hospitalized at [facility] for a blood clot and is now taking Eliquis, Hydrochlorothiazide and Spironolactone. Pt spouse is asking if it is ok to still get the Hep A vaccine with the change in medications. Please call Marlen at [phone] David Westbrook Pht Furniture Servicer [facility] Services ([facility]PS) (formerly Telepharmacy). 03/13/2023,9:47 AM documented in this encounter Plan of Treatment Upcoming Encounters Date Type Department Care Team (Late st Contact Info) Description 04/21/2023 11:00 AM EST Laboratory Laboratory, [facility] [address] [place] [phone] Betito Huerta [facility] [place] [address] 04/22/2023 2:00 PM EST Hem/Onc Treatment Hematology/Oncology Treatment, [place] 200 [facility] [address] Alejandrina, Chair 3 Hem Onc [address] [place] [address] 05/04/2023 11:00 AM EST Laboratory Laboratory, [facility] [address] [place] [address] Betito Huerta 132 [facility] [place] [address] 05/04/2023 11:30 AM EST Imaging [facility] [address] [place] [address] 05/05/2023 1:30 PM EST Hem/Onc Treatment Hematology/Oncology Treatment, [place] 200 [facility] [address] Alejandrina, Chair 4 Hem Onc [address] [place] [address] 05/13/2023 3:00 PM EST Office Visit Palliative Medicine [facility] 200 [place] [address] Nan Vargas MD [address] [place] [address] [place] [address] 05/18/2023 11:00 AM EST Laboratory Laboratory, [facility] 132 [place] [phone] [facility] 132 [facility] [address] 05/19/2023 11:15 AM EST Office Visit Hematology/Oncology [address] [place] [address] Jeff Robbins MD [address] [place] [address] 05/19/2023 11:45 AM EST Hem/Onc Treatment Hematology/Oncology Treatment[address] [place] [address] Alejandrina, Chair 8 Hem Onc [address] [place] [address] 06/25/2023 2:40 PM EST Telemedicine Hepatology, [facility] 132 [facility] [place] [address] Andreea Goodman DO 132 [facility] [place] [address] Health Maintenance Due Date Last Done Comments [...] this encounter Medical Devices Implanted Type Area Ergonomics Technician Device Identifier Shelf Expiration Date Model / Serial / Lot Power Port 8fr Sngl Lumen Plas - [id number] Implanted:Qty : 1 on 10/22/2022 by James Baeza DO at OR [facility] Right: Chest CR BARD : PERIPHERAL VASCULAR [id number] 02/25/2024 [id number] / / [id number] documented as of this encounter Advance Directives Documents on File Type Date Recorded Patient Director Of Finance Expl 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 Question Answer Comments Discussion of Advance Directives occurred with: Patient Care Teams Eligibility Specialist Relationship Specialty Start Date End Date Escobar Iglesias DO [address] [place] [address] PCP - General Family Medicine 10/07/22 documented as of this encounter
--- OUTSIDE RECORDS SUMMARY | 2023-05-29 14:14 | External Medical Summary | Summary of Care ---
Author Name Unknown Organization [facility] [address] [place] [address] Phone [phone] Care Team Providers Care Social Services Designee Name Role Phone Escobar Iglesias DO Primary Care Provider Encounter Details Date Type Department Care Team (Late st Contact Info) Description 04/19/2023 Orders Only Hematology/Oncology, [facility] 400 [place] [address] Sachin Girard MD 200 [place] [address] Allergies Active Allergy Reactions Criticality Noted Date Comments Prochlorperazine Edema face/lips/tongue High 023 BODY DYSFUNCTION documented as of this encounter (statuses as of 04/19/2023) Medications Medication Sig Dispensed Refills Start Date [...] HCl 0.1 % Nasal Solution Administer 1 [place] into nostril in the morning and 1 [place] before bedtime. 0 Active Escitalopram Oxalate 10 [...] as of this encounter (statuses as of 04/19/2023) Active Problems Problem Noted Date Diagnosed Date Dehydration 01/05/2023 Hypokalemia 01/05/2023 Metastasis to liver 10/07/2022 Malignant neoplasm of transverse colon Encounter for antineoplastic chemotherapy 2022 JOY (generalized anxiety disorder) 09/26/2022 Severe protein-energy malnutrition 09/25/2022 Abdominal mass, right upper quadrant 09/24/2022 Colonic mass 09/24/2022 Elevated LFTs 09/24/2022 Iron deficiency anemia 09/24/2022 ANTHONY (acute kidney injury) 09/24/2022 documented as of this encounter (statuses as of 04/19/2023) Social History Tobacco Use Types Packs/Day Years [...] Description 04/21/2023 11:00 AM EST Laboratory Laboratory, [facility] [address] [place] [phone] Betito Huerta 132 [facility] [place] [address] 04/22/2023 2:00 PM EST Hem/Onc Treatment Hematology/Oncology Treatment, [place] 200 [facility], [place] [address] Alejandrina, Chair 3 Hem Onc Scenery 200 [facility] [place] [address] 05/04/2023 11:00 AM EST Laboratory Laboratory, [facility] 132 [facility] [place] [phone] Betito Huerta [address] [place], [place] [address] [address] 05/04/2023 11:30 AM EST Imaging Radiology [place] [facility] 132 [facility] [place] [address] 05/05/2023 1:30 PM EST Hem/Onc Treatment Hematology/Oncology Treatment, [address], [place] [address] Alejandrina, Chair 4 Hem Onc [facility] [address] [place] [address] [place], [place] [address] 05/13/2023 3:00 PM EST Office Visit Palliative Medicine [address], [place] [address] Nan Vargas MD [address] [place] [address] [place] [address] 05/18/2023 11:00 AM EST Laboratory Laboratory, [facility] 132 [facility] [place] [phone] Betito Huerta 132 [facility] [place] [address] 05/19/2023 11:15 AM EST Office Visit Hematology/Oncology [facility] 200 [facility] [place] [address] Jeff Robbins MD 200 [facility] [place] [address] 05/19/2023 11:45 AM EST Hem/Onc Treatment Hematology/Oncology Treatment, [place] [address] [place] [address] Alejandrina, Chair 8 Hem Onc [facility] 200 [facility] [place] [address] 06/25/2023 2:40 PM EST Telemedicine Hepatology, [facility] [address] [place] [address] Andreea Goodman DO [address] [place] [address] Health Maintenance Due Date Last Done Comments [...] this encounter Medical Devices Implanted Type Area Chore Worker Device Identifier Shelf Expiration Date Model / Serial / Lot Power Port 8fr Sngl Lumen Plas - [id number] Implanted:Qty : 1 on 10/22/2022 by James Baeza DO at OR [facility] Right: Chest CR BARD : PERIPHERAL VASCULAR [id number] 02/25/2024 [id number] / / [id number] documented as of this encounter Advance Directives Documents on File Type Date Recorded Patient Production Cook Expl 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 Question Answer Comments Discussion of Advance Directives occurred with: Patient Care Teams Social Services Designee Relationship Specialty Start Date End Date Escobar Iglesias DO [address] [place] [address] PCP - General Family Medicine 10/07/22 documented as of this encounter
--- OUTSIDE RECORDS SUMMARY | 2023-05-29 14:14 | External Medical Summary | Summary of Care ---
Author Name Unknown Organization [facility] Address [address] [place] [address] Phone [phone] Care Team Providers Care Senior Manufacturing Technician Name Role Phone Escobar Iglesias DO Primary Care Provider Reason for Visit * Reason Comments Outpatient Testing Encounter Details Date Type Department Care Team (Late st Contact Info) Description 04/21/2023 11:00 AM EST Laboratory Laboratory, [facility] 132 [place] [phone] [facility] 132 [place] [address] 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); Malignant [...] Team (Late st Contact Info) Description 04/22/2023 2:00 PM EST Hem/Onc Treatment Hematology/Oncology Treatment, [place] 200 [facility], [place] [address] Alejandrina, Chair 3 Hem Onc Scenery 200 [facility] [place] [address] 05/04/2023 11:00 AM EST Laboratory Laboratory, [facility] 132 [facility] [place] [phone] Betito Huerta [facility] 132 [facility] [address] 05/04/2023 11:30 AM EST Imaging Radiology [facility] 132 [facility] [place] [address] 05/05/2023 1:30 PM EST Hem/Onc Treatment Hematology/Oncology Treatment, [place] 200 [facility], [place] [address] Alejandrina, Chair 4 Hem Onc Scenery 200 [facility] [place] [address] 05/13/2023 3:00 PM EST Office Visit Palliative Medicine [address], [place] [address] Nan Vargas MD [address] [place] [address] 05/18/2023 11:00 AM EST Laboratory Laboratory, [facility] 132 [facility] [place] [phone] Betito Huerta 132 [facility] [place] [address] 05/19/2023 11:15 AM EST Office Visit Hematology/Oncology [facility] 200 [facility] [place] [address] Jeff Robbins MD 200 [facility] [place] [address] 05/19/2023 11:45 AM EST Hem/Onc Treatment Hematology/Oncology Treatment, [place] [address] [place] [address] Alejandrina, Chair 8 Hem Onc Scenery [address] [place] [address] 06/25/2023 2:40 PM EST Telemedicine Hepatology, [facility] [address] [facility] [place] [address] Andreea Goodman DO [address] [place] [address] Pending Results Name Type Priority Associated Diagnoses Date /Time CBC WITH WBC DIFFERENTIAL Lab STAT 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) 04/21/2023 10:48 AM EST COMPREHENSIVE METABOLIC PANEL Lab STAT 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) 04/21/2023 10:48 AM EST CBC Lab STAT 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) 04/21/2023 10:48 AM EST DIFFERENTIAL, AUTOMATED Lab STAT 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) 04/21/2023 10:48 AM EST Health Maintenance Due Date Last [...] this encounter Medical Devices Implanted Type Area Compliance Assistant Device Identifier Shelf Expiration Date Model / Serial / Lot Power Port 8fr Sngl Lumen Plas - [id number] Implanted:Qty : 1 on 10/22/2022 by James Baeza DO at OR [facility] Right: Chest CR BARD : PERIPHERAL VASCULAR [id number] 02/25/2024 [id number] / / [id number] documented as of this encounter Visit Diagnoses Diagnosis 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) 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 Question Answer Comments Discussion of Advance Directives occurred with: Patient Care Teams Senior Manufacturing Technician Relationship Specialty Start Date End Date Escobar Iglesias DO 1400 [facility] [place] [address] PCP - General Family Medicine 10/07/22 documented as of this encounter
--- OUTSIDE RECORDS SUMMARY | 2023-05-29 14:14 | External Medical Summary | Summary of Care ---
Author Name Unknown Organization [facility] Address [address] [facility] [address] Phone [phone] Care Team Providers Care Piano Technician Name Role Phone Escobar Iglesias DO Primary Care Provider Reason for Visit * Reason Onset Date Comments Advice 03/13/2023 Encounter Details Date Type Department Care Team (Late st Contact Info) Description 03/13/2023 Telephone Gastroenterology, [facility] [address] [place] [address] Andreea Goodman DO [address] [place] [address] Advice Allergies Active Allergy Reactions Criticality Noted [...] HCl 0.1 % Nasal Solution Administer 1 [place] into nostril in the morning and 1 [place] before bedtime. 0 Active Escitalopram Oxalate 10 [...] Thursday but he was recently hospitalized at [facility] for a blood clot and is now taking Eliquis, Hydrochlorothiazide and Spironolactone. Pt spouse is asking if it is ok to still get the Hep A vaccine with the change in medications. Please call Marlen at [phone] David Westbrook Pht Chief Scientific Officer Centralized Clinical Pharmacy Services (CCPS) (formerly Telepharmacy). 03/13/2023,9:47 AM documented in this encounter Plan of Treatment Upcoming Encounters Date Type Department Care Team (Late st Contact Info) Description 04/21/2023 11:00 AM EST Laboratory Laboratory, [facility] [address] [phone] Betito Huerta [facility] [place] [address] 04/22/2023 2:00 PM EST Hem/Onc Treatment Hematology/Oncology Treatment, [place] 200 [facility] [address] Alejandrina, Chair 3 Hem Onc [address] [place] [address] 05/04/2023 11:00 AM EST Laboratory Laboratory, [facility] [address] [place] [address] Betito Huerta 132 [facility] [place] [address] 05/04/2023 11:30 AM EST Imaging Rad[facility] [address] [place] [address] 05/05/2023 1:30 PM EST Hem/Onc Treatment Hematology/Oncology Treatment, [place] 200 [facility] [address] Alejandrina, Chair 4 Hem Onc [address] [place] [address] 05/13/2023 3:00 PM EST Office Visit Palliative Medicine [facility] 200 [place] [address] Nan Vargas MD [address] [place] [address] [place] [address] 05/18/2023 11:00 AM EST Laboratory Laboratory, [facility] 132 [place] [phone] [facility] 132 [facility] [address] 05/19/2023 11:15 AM EST Office Visit Hematology/Oncology [address] [place] [address] Jeff Robbins MD [address] [place] [address] 05/19/2023 11:45 AM EST Hem/Onc Treatment Hematology/Oncology Treatment[address] [place] [address] Alejandrina, Chair 8 Hem Onc [address] [place] [address] 06/25/2023 2:40 PM EST Telemedicine Hepatology, [facility] 132 [facility] [place] [address] Andreea Goodman DO 132 [facility] [place] [address] Health Maintenance Due Date Last Done Comments [...] this encounter Medical Devices Implanted Type Area Coin Machine Assembler Device Identifier Shelf Expiration Date Model / Serial / Lot Power Port 8fr Sngl Lumen Plas - [id number] Implanted:Qty : 1 on 10/22/2022 by James Baeza DO at OR [facility] Right: Chest CR BARD : PERIPHERAL VASCULAR [id number] 02/25/2024 [id number] / / [id number] documented as of this encounter Advance Directives Documents on File Type Date Recorded Patient Powerhouse Laborer Expl 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 Question Answer Comments Discussion of Advance Directives occurred with: Patient Care Teams Piano Technician Relationship Specialty Start Date End Date Escobar Iglesias DO [address] [place] [address] PCP - General Family Medicine 10/07/22 documented as of this encounter
--- OUTSIDE RECORDS SUMMARY | 2023-05-29 14:14 | External Medical Summary ---
Author Name Unknown Address Unknown Organization [facility] [address] [place] [address] Laboratory Report Ordering Provider Test Date Status RASHAAD BARAHONA 04/21/2023 10:48:00 Final Observation Date Value Abnormality Reference (Units ) Status SYNC LEUKOCYTES IN BLOOD BY AUTOMATED COUNT 04/21/2023 10:48:00 5.96 4.00-10.80 (K/uL) Final Segs 04/21/2023 10:48:00 59.5 40.0-75.0 (%) Final Lymphs % 04/21/2023 10:48:00 18.3 18.0-42.0 (%) Final Monos 04/21/2023 10:48:00 18.0 Above high normal 1.0-11.0 (%) Final Eosinophils 04/21/2023 10:48:00 2.7 0.0-6.0 (%) Final Basos 04/21/2023 10:48:00 1.5 0.0-2.0 (%) Final Absolute Segs 04/21/2023 10:48:00 3.55 1.80-7.70 (K/uL) Final Lymphs, absolute 04/21/2023 10:48:00 1.09 1.00-4.80 (K/ul) Final Monos, Abs 04/21/2023 10:48:00 1.07 0.00-1.10 (K/uL) Final Eos, Abs 04/21/2023 10:48:00 0.16 0.00-0.70 (K/uL) Final Basos, Abs 04/21/2023 10:48:00 0.09 0.00-0.20 (K/uL) Final Performing Location [facility] [place] [address]
--- OUTSIDE RECORDS SUMMARY | 2023-05-29 14:14 | External Medical Summary | Summary of Care ---
Author Name Unknown Organization [facility] 100 [place] [address] Phone [phone] Care Team Providers Care Environmental Protection Economist Name Role Phone Escobar Iglesias DO Primary Care Provider Encounter Details Date Type Department Care Team (Late st Contact Info) Description 04/17/2023 Orders Only Hematology/Oncology, [facility] 400 [place] [address] Sachin Girard MD 200 [place] [address] Allergies Active Allergy Reactions Criticality Noted Date [...] HCl 0.1 % Nasal Solution Administer 1 [place] into nostril in the morning and 1 [place] before bedtime. 0 Active Escitalopram Oxalate 10 [...] Description 04/21/2023 11:00 AM EST Laboratory Laboratory, [facility] [address] [place] [phone] Betito Huerta 132 [facility] [place] [address] 04/22/2023 2:00 PM EST Hem/Onc Treatment Hematology/Oncology Treatment, [place] 200 [facility], [place] [address] Alejandrina, Chair 3 Hem Onc Scenery 200 [facility] [place] [address] 05/04/2023 11:00 AM EST Laboratory Laboratory, [facility] 132 [facility] [place] [phone] Betito Huerta [address] [place], [place] [address] [address] 05/04/2023 11:30 AM EST Imaging Radiology [facility] 132 [facility] [place] [address] 05/05/2023 1:30 PM EST Hem/Onc Treatment Hematology/Oncology Treatment, [address], [place] [address] Alejandrina, Chair 4 Hem Onc [facility] [address] [place] [address] [place], [place] [address] 05/13/2023 3:00 PM EST Office Visit Palliative Medicine [address], [place] [address] Nan Vargas MD [address] [place] [address] [place] [address] 05/18/2023 11:00 AM EST Laboratory Laboratory, [facility] 132 [facility] [place] [phone] Betito Huerta 132 [facility] [place] [address] 05/19/2023 11:15 AM EST Office Visit Hematology/Oncology [facility] 200 [facility] [place] [address] Jeff Robbins MD 200 [facility] [place] [address] 05/19/2023 11:45 AM EST Hem/Onc Treatment Hematology/Oncology Treatment, [place] [address] [place] [address] Alejandrina, Chair 8 Hem Onc [facility] 200 [facility] [place] [address] 06/25/2023 2:40 PM EST Telemedicine Hepatology, [facility] [address] [place] [address] Andreea Goodman DO [address] [place] [address] Health Maintenance Due Date Last Done Comments [...] this encounter Medical Devices Implanted Type Area Shirt Trimmer Device Identifier Shelf Expiration Date Model / Serial / Lot Power Port 8fr Sngl Lumen Plas - [id number] Implanted:Qty : 1 on 10/22/2022 by James Baeza DO at OR [facility] Right: Chest CR BARD : PERIPHERAL VASCULAR [id number] 02/25/2024 [id number] / / [id number] documented as of this encounter Advance Directives Documents on File Type Date Recorded Patient Software Lead Expl 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 Question Answer Comments Discussion of Advance Directives occurred with: Patient Care Teams Environmental Protection Economist Relationship Specialty Start Date End Date Escobar Iglesias DO [address] [place] [address] PCP - General Family Medicine 10/07/22 documented as of this encounter
--- OUTSIDE RECORDS SUMMARY | 2023-05-29 14:14 | External Medical Summary ---
Author Name Unknown Address Unknown Organization [facility] [address] [place] [address] Laboratory Report Ordering Provider Test Date Status RASHAAD BARAHONA 04/21/2023 10:48:00 Final Observation Date Value Abnormality Reference (Units ) Status Nucleated erythrocytes/100 leukocytes [Ratio] in Blood by Automated count 04/21/2023 10:48:00 Final Schistocytes 04/21/2023 10:48:00 Few Abnormal None Seen Final Performing Location [facility] [place] [address]
--- OUTSIDE RECORDS SUMMARY | 2023-05-29 14:14 | External Medical Summary | Summary of Care ---
Author Name Unknown Organization [facility] Address [address] [place] [address] Phone [phone] Care Team Providers Care Manager Erp Name Role Phone Escobar Iglesias DO Primary Care Provider Reason for Visit * Reason Onset Date Comments Advice 04/17/2023 Encounter Details Date Type Department Care Team (Late st Contact Info) Description 04/17/2023 Telephone Palliative Medicine [facility] [address] [place], [place] [phone] Nan Vargas MD [address] [place] [id number] Advice Allergies Active Allergy Reactions Criticality Noted [...] HCl 0.1 % Nasal Solution Administer 1 [place] into nostril in the morning and 1 [place] before bedtime. 0 Active Escitalopram Oxalate 10 [...] encounter Miscellaneous Notes * Telephone Encounter - Kendrick Jacobs OSA - 04/21/2023 9:53 AM EST Pts called to confirm the appt for Robin and they will be coming. * Telephone Encounter - Christine Sandoval OSA - 04/17/2023 10:13 AM EST Marlen is calling about his appt on 05-13. They are having transportation issues. Would he beable to do a video appt instead? Please call her back at home [phone] Please leave a message on voicemail if not able to speak directly documented in this encounter Plan of Treatment Upcoming Encounters Date Type Department Care Team (Late st Contact Info) Description 04/21/2023 11:00 AM EST Laboratory Laboratory, [facility] [address] [facility] [place] [phone] Betito Huerta [address] [place] [address] [place] [address] 04/22/2023 2:00 PM EST Hem/Onc Treatment Hematology/[address]cology [address] [address] Alejandrina, Chair 3 Hem Onc [address] [address] 05/04/2023 11:00 AM EST Laboratory Laboratory, [facility] [address] [facility] [place] [phone] Betito Huerta 132 [facility] [place] [address] 05/04/2023 11:30 AM EST [facility] [address] [place] [address] 05/05/2023 1:30 PM EST Hem/Onc Treatment Hematology/Oncology Treatment, [address] [place] [address] Alejandrina, Chair 4 Hem Onc [address] [place], [place] [address] 05/13/2023 3:00 PM EST Office Visit Palliative Medicine [facility] [place] 200 [facility], [place] [address] Nan Vargas MD [address] [place] [address] 05/18/2023 11:00 AM EST Laboratory Laboratory, [facility] [place] [phone] [facility] [place] [address] 05/19/2023 11:15 AM EST Office Visit Hematology/Oncology [address] [place], [place] [address] Jeff Robbins MD 200 [facility], [place] [address] 05/19/2023 11:45 AM EST Hem[facility] 200 [facility], [place] [address] Alejandrina, Chair 8 Hem Onc [address] [place], [place] [address] 06/25/2023 2:40 PM EST Telemedicine Hepatology, [facility] [place] [address] Andreea Goodman DO [address] [place] [address] Health Maintenance Due Date Last Done Comments [...] this encounter Medical Devices Implanted Type Area Methods Time Analyst Device Identifier Shelf Expiration Date Model / Serial / Lot Power Port 8fr Sngl Lumen Plas - [id number] Implanted:Qty : 1 on 10/22/2022 by James Baeza DO at OR [facility] Right: Chest CR BARD : PERIPHERAL VASCULAR [id number] 02/25/2024 [id number] / / [id number] documented as of this encounter Advance Directives Documents on File Type Date Recorded Patient Commercial Drone Software Developer Expl 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 Question Answer Comments Discussion of Advance Directives occurred with: Patient Care Teams Manager Erp Relationship Specialty Start Date End Date Escobar Iglesias DO [address] [facility] [place] [address] PCP - General Family Medicine 10/07/22 documented as of this encounter
--- OUTSIDE RECORDS SUMMARY | 2023-05-29 14:14 | External Medical Summary | Summary of Care ---
Author Name Unknown Organization [facility] Address [address] [place] [address] Phone [phone] Care Team Providers Care Record Label Internship Name Role Phone Escobar Iglesias DO Primary Care Provider Reason for Visit * Reason Onset Date Comments Palliative Care Follow-up 04/13/2023 Encounter Details Date Type Department Care Team (Late st Contact Info) Description 04/13/2023 Telephone Palliative Medicine, [facility] 400 [facility] 5th Floor [place], [place] [phone] Nan Vargas MD [address] [place] [address] Palliative Care Follow-up Allergies Active Allergy Reactions Criticality Noted Date Comments Prochlorperazine Edema face/lips/tongue High 023 BODY DYSFUNCTION documented as of this encounter (statuses as of 04/13/2023) Medications Medication Sig Dispensed Refills Start Date [...] HCl 0.1 % Nasal Solution Administer 1 [place] into nostril in the morning and 1 [place] before bedtime. 0 Active Escitalopram Oxalate 10 [...] as of this encounter (statuses as of 04/13/2023) Active Problems Problem Noted Date Diagnosed Date Dehydration 01/05/2023 Hypokalemia 01/05/2023 Metastasis to liver 10/07/2022 Malignant neoplasm of transverse colon Encounter for antineoplastic chemotherapy 2022 JOY (generalized anxiety disorder) 09/26/2022 Severe protein-energy malnutrition 09/25/2022 Abdominal mass, right upper quadrant 09/24/2022 Colonic mass 09/24/2022 Elevated LFTs 09/24/2022 Iron deficiency anemia 09/24/2022 ANTHONY (acute kidney injury) 09/24/2022 documented as of this encounter (statuses as of 04/13/2023) Social History Tobacco Use Types Packs/Day Years [...] Telephone Encounter - Jonna Roper LPN - 04/13/2023 9:19 AM EST Patient needing f/u appointment at [facility] Scheduled 05/13 at 3pm MyG sent to patient to inform documented in this encounter Plan of Treatment Upcoming Encounters Date Type Department Care Team (Late st Contact Info) Description 04/21/2023 11:00 AM EST Laboratory Laboratory, [facility] 132 [facility] [place] [phone] Betito Huerta 132 [facility] [place] [address] 04/22/2023 2:00 PM EST Hem/Onc Treatment Hematology/Oncology Treatment, [address] [address] Alejandrina, Chair 3 Hem Onc [address] [place] [address] 05/04/2023 11:00 AM EST Laboratory Laboratory, [facility] 132 [facility] [place] [address] Betito Huerta 132 [facility] [place] [address] 05/04/2023 11:30 AM EST Imaging [facility] 132 [facility] [place] [address] 05/05/2023 1:30 PM EST Hem/Onc Treatment Hematology/Oncology Treatment, [address] [address] Alejandrina, Chair 4 Hem Onc [address] [place] [address] 05/13/2023 3:00 PM EST Office Visit Palliative Medicine [address] [address] Nan Vargas MD [address] [place], [place] [address] [address] 05/18/2023 11:00 AM EST Laboratory Laboratory, [facility] [phone] [facility] [address] 05/19/2023 11:15 AM EST Office Visit Hematology/Oncology [facility] 200 [place] [address] Jeff Robbins MD 200 [place] [address] 05/19/2023 11:45 AM EST Hem/Onc Treatment Hematology/Oncology Treatment, [place] [address] [facility] [place] [address] Alejandrina, Chair 8 Hem Onc [facility] 200 [facility], [place] [address] 06/25/2023 2:40 PM EST Telemedicine Hepatology, [facility] [address] Andreea Goodman DO 132 [facility] [place] [address] Health Maintenance Due Date Last Done Comments [...] this encounter Medical Devices Implanted Type Area Diesel Locomotive Firer/Fireman Device Identifier Shelf Expiration Date Model / Serial / Lot Power Port 8fr Sngl Lumen Plas - [id number] Implanted:Qty : 1 on 10/22/2022 by James Baeza DO at OR [facility] Right: Chest CR BARD : PERIPHERAL VASCULAR [id number] 02/25/2024 [id number] / / [id number] documented as of this encounter Advance Directives Documents on File Type Date Recorded Patient Doctor Of Audiology Expl 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 Question Answer Comments Discussion of Advance Directives occurred with: Patient Care Teams Record Label Internship Relationship Specialty Start Date End Date Escobar Iglesias DO [address] [place] [address] PCP - General Family Medicine 10/07/22 documented as of this encounter
--- OUTSIDE RECORDS SUMMARY | 2023-05-29 14:14 | External Medical Summary | Summary of Care ---
Author Name Unknown Organization [facility] Address [address] [place] [address] Phone [phone] Care Team Providers Care Mechanotherapist Name Role Phone Escobar Iglesias DO Primary Care Provider Reason for Visit * Reason Comments Chemotherapy C12D1 Leuco/5FU 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) Encounter for antineoplastic chemotherapy Procedures CT LEUCOVORIN CALCIUM INJECTION CT PALONOSETRON HCL CT FLUOROURACIL INJECTION CT OXALIPLATIN Jeff Robbins MD [address] [place] [address] Anc Hem/Onc [facility] DEPT CLOSED - 03/10/23 [address] [employer] [address] Referral ID Status Reason Start Date Expiration Date V isits Requested Visits Authorized [id number] Authorized 01/26/2023 04/25/[phone] Encounter Details Date Type Department Care Team (Latest Contact Info) Description 04/07/2023 2:30 PM EST Hem/Onc Treatment Hematology/Oncolog y Treatment, [place] [address] [place] [address] Alejandrina, Chair 10 Hem Onc [address] [place] [address] [place] [address] 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)*; Malignant neoplasm of transverse colon (HCC); Encounter for antineoplastic chemotherapy Allergies Active Allergy Reactions Criticality Noted Date Comments Prochlorperazine Edema face/lips/tongue High 023 BODY DYSFUNCTION documented as of this encounter (statuses as of 04/07/2023) Medications Medication Sig Dispensed Refills Start Date [...] HCl 0.1 % Nasal Solution Administer 1 [place] into nostril in the morning and 1 [place] before bedtime. 0 Active Escitalopram Oxalate 10 [...] 138 mL infusion 4150 mg IV CONTINUOUS 03/23/2023 04/06/2023 Discontinued documented as of this encounter (statuses as of 04/07/2023) Active Problems Problem Noted Date Diagnosed Date [...] as of this encounter (statuses as of 04/07/2023) Social History Tobacco Use Types Packs/Day Years [...] Sign Reading Time Taken Comments Blood Pressure 110/82 04/07/2023 2:30 PM EST Pulse 90 04/07/2023 2:30 PM EST Temperature 35.7 C (96.2 F) 04/07/2023 2:30 PM ES T Respiratory Rate 18 04/07/2023 2:30 PM EST Oxygen Saturation - - Inhaled Oxygen Concentration - - Weight 59.8 kg (131 lb 12.8 oz) 04/07/2023 2:30 PM EST Height - - Body Mass Index 21.28 10/22/2022 12:03 PM EDT documented in this [...] Nursing Notes * Rachel Rogers RN - 04/07/2023 3:15 PM EST Chair 6 Chemo agents Leucovorin/5FU Appetite fair Nausea/Vomiting no Diarrhea no Constipation yes, OTC meds helpful Mucositis no Fatigue yes, rests as needed Bleeding no Infection no Rash no Numbness tingling no Pain in lower back for about 2-3 days, very positional, denies any fall or injury, takes pain meds as needed with relief Radiation no ABN Labs WNL for treatment Alt in Tx: no Return in 2 days for pump d/c Safety and Risk for Injury Patient will remain free from injury. Ensure appropriate safety devices are available. Provide and maintain safe environment. VAD accessed without difficulty, good blood return noted, flushed with NSS and fluids infusing. Functional status at today's visit: Restricted in [...] symptoms or adverse side effects during treatment. Goals: Patient will remain free from injury. Possible barriers to meeting goals: ambulation with IV pole, use of cane, intermittent back pain Stability of the patient: Moderately unstable - medium risk of patient condition declining or worsening Summary regarding today's goals: Met: Pt remained free of injury during treatment Patient tolerated treatment well and was connected to home 5FU infusion pump. He was discharged in stable condition. No coverage needed today. * Charisse Fink RN - 04/06/2023 11:24 AM EST Alk phos 524, AST 81. Per vivi Holly for treatment tomorrow. documented in this encounter Plan of Treatment Upcoming Encounters Date Type Department Care Team (Late st Contact Info) Description 04/09/2023 1:45 PM EST Immunization/Injection Hematology/Oncology Treatment, [place] [address] [place] [address] Nurse, Med [address] [facility] [address] 04/21/2023 11:00 AM EST [facility] 132 [facility] [place] [phone] Huerta[place] bunn [facility] 132 [facility] [place] [address] 04/22/2023 2:00 PM EST Hem/Onc Treatment Hematology/Oncology Treatment, [place] 200 [facility], [place] [address] Alejandrina, Chair 3 Hem Onc [address] [place] [address] 05/04/2023 11:00 AM EST Laboratory Laboratory, [facility] 132 [facility] [place] [phone] Betito Huerta 132 [facility] [address] 05/04/2023 11:30 AM EST Imaging Radiology [facility] 1st [facility] 132 [facility] [place] [address] 05/05/2023 1:30 PM EST Hem/Onc Treatment Hematology/Oncology Treatment, [place] [address] [facility] [address] Alejandrina, Chair 4 Hem Onc Scenery 200 [place] [address] 05/18/2023 11:00 AM EST Laboratory Laboratory, [facility] 132 [facility] [place], [place] [address] Betito Huerta [address] [facility] [place] [address] 05/19/2023 11:15 AM EST Office Visit Hematology/Oncology [facility] [address] [place] [address] Jeff Robbins MD [address] [place] [address] 05/19/2023 11:45 AM EST Hem/Onc Treatment Hematology/Oncology Treatment, [place] [address] [facility] [address] Alejandrina, Chair 8 Hem Onc [address] [place], [place] [address] 06/25/2023 2:40 PM EST Telemedicine Hepatology, [facility] [address] [place] [address] Andreea Goodman, [address] [place] [address] Health Maintenance Due Date Last Done Comments [...] this encounter Medical Devices Implanted Type Area Credit Cashier Device Identifier Shelf Expiration Date Model / Serial / Lot Power Port 8fr Sngl Lumen Plas - [id number] Implanted:Qty : 1 on 10/22/2022 by James Baeza DO at OR [facility] Right: Chest CR BARD : PERIPHERAL VASCULAR [id number] 02/25/2024 [id number] / / [id number] documented as of this encounter Visit Diagnoses [...] ONCE PRN Other, Hypersensitivity Reaction, Starting on Thu04/07/23 at 1448, Until Thu04/08/23 at 1447, For 24 hours EPINEPHrine 1 MG/ML inj 0.3 mg 0.3 mg, Intramuscular, ONCE PRN Other, Hypersensitivity Reaction or Anaphylaxis, Starting on Thu04/07/23 at 1448, Until Thu04/08/23 at 1447, For 24 hours hEParin 100 UNIT/ML Lock Flush inj 500 Units 500 Units (5 mL), IV Lock, PRN Other, IV Flush, Starting on Thu04/07/23 at 1448, Until Thu04/08/23 at 1447, For 24 hours, Do not flush if lock, PICC, or central line not in place; IV infusing or unable to flush. Hydrocortisone Sod Suc (PF) (Solu-Cortef) inj 100 mg 100 mg, IV Push, ONCE PRN Other, Hypersensitivity Reaction, Starting on Thu04/07/23 at 1448, Until Thu04/08/23 at 1447, For 24 hours oxygen GAS Inhalation, OXYGEN, First dose on Thu04/07/23 at 1600, Until Discontinued, Device/Managed by: Low [...] Push, PRN Other, IV Flush, Starting on Thu04/07/23 at 1448, Until Thu04/08/23 at 1447, For 24 hours, Do not flush if [...] solution and volume., ONCE, 1 dose, On Thu04/07/23 at 1315 Start Infusion 04/07/2023 3:42 PM EST 4,150 mg 3 mL/hr Fluorouracil (5-Fu) inj 700 mg 700 mg (rounded from 692 mg = 400 mg/m2 1.73 m2 Treatment Plan BSA from Recorded weight), IV Push, ONCE, 1 dose, On Thu04/07/23 at 1530 Given 04/07/2023 3:37 PM EST 700 mg leucovorin calcium 700 mg in D5W 250 mL INFUSION 700 mg (rounded from 692 mg = 400 mg/m2 1.73 m2 Treatment Plan BSA from Recorded weight), IV Piggyback, ONCE, 1 dose, On Thu04/07/23 at 1530, Administer over 30 Minutes, Before 5-FU Start Infusion 04/07/2023 3:02 PM EST 700 mg 500 mL/hr NSS infusion FOR HYDRATION Intravenous, at 50 mL/hr Administer over 10 Hours, ONCE, 1 dose, On Thu04/07/23 at 1530 Start Infusion 04/07/2023 2:45 PM EST 500 mL 50 mL/hr ondansetron (Zofran) tab 8 mg 8 mg, Oral, ONCE, On Thu04/07/23 at 1530, For 1 dose Given 04/07/2023 2:54 PM EST 8 mg documented in this encounter Advance Directives Documents on File Type Date Recorded Patient Wood Bucker Expl 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 Question Answer Comments Discussion of Advance Directives occurred with: Patient Care Teams Mechanotherapist Relationship Specialty Start Date End Date Escobar Iglesias DO [address] [place] [address] PCP - General Family Medicine 10/07/22 documented as of this encounter
--- OUTSIDE RECORDS SUMMARY | 2023-05-29 14:15 | External Medical Summary ---
Author Name Unknown Address Unknown Organization K09[facility] [place] [address] Laboratory Report Ordering Provider Test Date Status RASHAAD BARAHONA 04/06/2023 10:31:43 Final Observation Date Value Abnormality Reference (Units ) Status SYNC LEUKOCYTES IN BLOOD BY AUTOMATED COUNT 04/06/2023 10:31:43 6.61 4.00-10.80 (K/uL) Final Segs 04/06/2023 10:31:43 69.5 40.0-75.0 (%) Final Lymphs % 04/06/2023 10:31:43 11.3 Below low normal 18.0-42.0 (%) Final Monos 04/06/2023 10:31:43 15.4 Above high normal 1.0-11.0 (%) Final Eosinophils 04/06/2023 10:31:43 3.2 0.0-6.0 (%) Final Basos 04/06/2023 10:31:43 0.6 0.0-2.0 (%) Final Absolute Segs 04/06/2023 10:31:43 4.59 1.80-7.70 (K/uL) Final Lymphs, absolute 04/06/2023 10:31:43 0.75 Below low normal 1.00-4.80 (K/ul) Final Monos, Abs 04/06/2023 10:31:43 1.02 0.00-1.10 (K/uL) Final Eos, Abs 04/06/2023 10:31:43 0.21 0.00-0.70 (K/uL) Final Basos, Abs 04/06/2023 10:31:43 0.04 0.00-0.20 (K/uL) Final Performing Location [facility] [place] [address]
--- OUTSIDE RECORDS SUMMARY | 2023-05-29 14:15 | External Medical Summary ---
Author Name Unknown Address Unknown Organization K09:[facility] [address] [place] [address] Laboratory Report Ordering Provider Test Date Status RASHAAD BARAHONA 04/06/2023 10:31:43 Final Observation Date Value Abnormality Reference (Units ) Status BUN 04/06/2023 10:31:43 26 Above high normal 6-20 (mg/dL) Final Creatinine 04/06/2023 10:31:43 0.8 0.6-1.2 (mg/dL) Final Glomerular filtration rate/1.73 sq M.predicted [Volume Rate/Area] in Serum, Plasma or Blood by Creatinine-based formula (CKD-EPI) 04/06/2023 10:31:43 90 >=60 (mL/min) Final eGFR is calculated based on the CKD-EPI 2020 equation SODIUM 04/06/2023 10:31:43 133 Below low normal 135 -146 (mmol/L) Final Potassium 04/06/2023 10:31:43 4.2 3.5-5.1 (m mol/L) Final Cl 04/06/2023 10:31:43 100 98-107 (mm ol/L) Final CO2 04/06/2023 10:31:43 24 22-32 (mmo l/L) Final Anion gap 04/06/2023 10:31:43 9 7-15 (mmol /L) Final Glucose 04/06/2023 10:31:43 122 Above high normal 70 -120 (mg/dL) Final Albumin 04/06/2023 10:31:43 3.0 Below low normal 3.8 -5.0 (g/dL) Final AST (Aspartate aminotransferase) 04/06/2023 10:31:43 81 Above high normal 10-50 (U/L) Final Alk Phos 04/06/2023 10:31:43 524 Above high normal 35 -130 (U/L) Final Bilirubin, Total 04/06/2023 10:31:43 0.5 <=1 .2 (mg/dL) Final Calcium 04/06/2023 10:31:43 9.3 8.4-10.2 ( mg/dL) Final Protein 04/06/2023 10:31:43 6.4 6.0-8.3 (g /dL) Final ALT (Alanine aminotransferase) 04/06/2023 10:31:43 39 10-50 (U/L) Tres ordonez Performing Location [facility] [address] [place] [address]
--- OUTSIDE RECORDS SUMMARY | 2023-05-29 14:15 | External Medical Summary ---
Author Name Unknown Address Unknown Organization K09[facility] [place] [address] Laboratory Report Ordering Provider Test Date Status RASHAAD BARAHONA 04/06/2023 10:31:43 Final Observation Date Value Abnormality Reference (Units ) Status Nucleated erythrocytes/100 leukocytes [Ratio] in Blood by Automated count 04/06/2023 10:31:43 Final Acanthocytes [Presence] in Blood by Light microscopy 04/06/2023 10:31:43 Moderate Abnormal None Seen Final Performing Location [facility] [place] [address]
--- OUTSIDE RECORDS SUMMARY | 2023-05-29 14:15 | External Medical Summary | Summary of Care ---
Author Name Unknown Organization [facility] Address [address] [place] [address] Phone [phone] Care Team Providers Care Dispute Specialist Name Role Phone Escobar Iglesias DO Primary Care Provider Reason for Visit * Reason Comments Outpatient Testing Encounter Details Date Type Department Care Team (Late st Contact Info) Description 04/06/2023 10:30 AM EST Laboratory Laboratory Scenery [facility] [address] [place] [address] [facility] Scenery [address] [place] [address] 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); Malignant neoplasm of transverse colon (HCC) Allergies Active Allergy Reactions Criticality Noted Date Comments Prochlorperazine Edema face/lips/tongue High 023 BODY DYSFUNCTION documented as of this encounter (statuses as of 04/06/2023) Medications Medication Sig Dispensed Refills Start Date [...] HCl 0.1 % Nasal Solution Administer 1 [place] into nostril in the morning and 1 [place] before bedtime. 0 Active Escitalopram Oxalate 10 [...] mL infusion 4150 mg IV CONTINUOUS 03/23/2023 Ac tive documented as of this encounter (statuses as of 04/06/2023) Active Problems Problem Noted Date Diagnosed Date Dehydration 01/05/2023 Hypokalemia 01/05/2023 Metastasis to liver 10/07/2022 Malignant neoplasm of transverse colon Encounter for antineoplastic chemotherapy 2022 JOY (generalized anxiety disorder) 09/26/2022 Severe protein-energy malnutrition 09/25/2022 Abdominal mass, right upper quadrant 09/24/2022 Colonic mass 09/24/2022 Elevated LFTs 09/24/2022 Iron deficiency anemia 09/24/2022 ANTHONY (acute kidney injury) 09/24/2022 documented as of this encounter (statuses as of 04/06/2023) Social History Tobacco Use Types Packs/Day Years [...] Care Team (Late st Contact Info) Description 04/07/2023 2:30 PM EST Hem/Onc Treatment Hematology/Oncology Treatment, [place] [address] [place] [address] Alejandrina, Chair 10 Hem Onc Scenery [address] [place] [address] 06/25/2023 2:40 PM EST Telemedicine Hepatology, [facility] [address] [place] [address] Andreea Goodman DO [address] [place] [address] Pending Results Name Type Priority Associated Diagnoses Date /Time CBC WITH WBC DIFFERENTIAL Lab STAT 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) 04/06/2023 10:31 AM EST COMPREHENSIVE METABOLIC PANEL Lab STAT 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) 04/06/2023 10:31 AM EST CBC Lab STAT 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) 04/06/2023 10:31 AM EST DIFFERENTIAL, AUTOMATED Lab STAT 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) 04/06/2023 10:31 AM EST Health Maintenance Due Date Last [...] this encounter Medical Devices Implanted Type Area Automatic Hemmer Device Identifier Shelf Expiration Date Model / Serial / Lot Power Port 8fr Sngl Lumen Plas - [id number] Implanted:Qty : 1 on 10/22/2022 by James Baeza DO at OR [facility] Right: Chest CR BARD : PERIPHERAL VASCULAR [id number] 02/25/2024 [id number] / / [id number] documented as of this encounter Visit Diagnoses Diagnosis 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) 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 Question Answer Comments Discussion of Advance Directives occurred with: Patient Care Teams Dispute Specialist Relationship Specialty Start Date End Date Escobar Iglesias DO [address] [place] [address] PCP - General Family Medicine 10/07/22 documented as of this encounter
--- OUTSIDE RECORDS SUMMARY | 2023-05-29 14:15 | External Medical Summary | Summary of Care ---
Author Name Unknown Organization [facility] Address [address] [place] [address] Phone [phone] Care Team Providers Care Nylon Operator Name Role Phone Escobar Iglesias DO Primary Care Provider Reason for Visit * Reason Onset Date Comments Appointment 04/01/2023 Treatment Encounter Details Date Type Department Care Team (Late st Contact Info) Description 04/01/2023 Telephone Hematology/Oncology [facility] Alejandrina [place] [address] [facility] [place] [address] Jeff Robbins MD 200 [facility] [place] [address] Appointment (Treatment) Allergies Active Allergy Reactions Criticality Noted Date Comments Prochlorperazine Edema face/lips/tongue High 023 BODY DYSFUNCTION documented as of this encounter (statuses as of 04/01/2023) Medications Medication Sig Dispensed Refills Start Date [...] HCl 0.1 % Nasal Solution Administer 1 [place] into nostril in the morning and 1 [place] before bedtime. 0 Active Escitalopram Oxalate [...] as of this encounter (statuses as of 04/01/2023) Active Problems Problem Noted Date Diagnosed Date Dehydration 01/05/2023 Hypokalemia 01/05/2023 Metastasis to liver 10/07/2022 Malignant neoplasm of transverse colon Encounter for antineoplastic chemotherapy 2022 JOY (generalized anxiety disorder) 09/26/2022 Severe protein-energy malnutrition 09/25/2022 Abdominal mass, right upper quadrant 09/24/2022 Colonic mass 09/24/2022 Elevated LFTs 09/24/2022 Iron deficiency anemia 09/24/2022 ANTHONY (acute kidney injury) 09/24/2022 documented as of this encounter (statuses as of 04/01/2023) Social History Tobacco Use Types Packs/Day Years [...] Telephone Encounter - Marcia Muhammad OSA - 04/01/2023 2:42 PM EST Called patients and explained that at this time there are no sooner openings for treatment. She understood. She stated that from now on she would like any appts for patient to be between 10am-1:30pm due to her son brings patient and had to rearrange his work schedule to be able to help out. * Telephone Encounter - Ashly Somers OSA - 04/01/2023 2:33 PM EST Pts called in stating the pt is currently scheduled for 04/07 for his next treatment. They arecalling to see if it would be possible to have an earlier time. Asking for a return call to [phone] documented in this encounter Plan of Treatment Upcoming Encounters Date Type Department Care Team (Late st Contact Info) Description 04/06/2023 10:30 AM EST Laboratory Laboratory [facility] 200 [facility] [place] [address] Alejandrina, Lab Scenery 200 [facility] [place] [address] 04/07/2023 2:30 PM EST Hem/Onc Treatment Hematology/Oncology Treatment, [place] [address] [place] [address] Alejandrina, Chair 10 Hem Onc Scenery [address] [place] [address] 06/25/2023 2:40 PM EST Telemedicine [facility], [facility] [place] [address] Andreea Goodman, [address] [place] [address] Health Maintenance Due Date Last Done Comments [...] this encounter Medical Devices Implanted Type Area Designer Writer Device Identifier Shelf Expiration Date Model / Serial / Lot Power Port 8fr Sngl Lumen Plas - [id number] Implanted:Qty : 1 on 10/22/2022 by James Baeza DO at OR [facility] Right: Chest CR BARD : PERIPHERAL VASCULAR [id number] 02/25/2024 [id number] / / [id number] documented as of this encounter Advance Directives Documents on File Type Date Recorded Patient Bookkeeping Machine Operator Expl 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 Question Answer Comments Discussion of Advance Directives occurred with: Patient Care Teams Nylon Operator Relationship Specialty Start Date End Date Escobar Iglesias DO [address] [place] [address] PCP - General Family Medicine 10/07/22 documented as of this encounter
--- OUTSIDE RECORDS SUMMARY | 2023-05-29 14:15 | External Medical Summary | Summary of Care ---
Author Name Unknown Organization [facility] Address [address] [place] [address] Phone [phone] Care Team Providers Care Airplane Woodworker Name Role Phone Escobar Iglesias DO Primary Care Provider Reason for Visit * Reason Onset Date Comments Appointment 04/06/2023 Encounter Details Date Type Department Care Team (Late st Contact Info) Description 04/06/2023 Telephone Hematology/Oncology Treatment, [place] [address] [place] [address] Jeff Robbins MD [address] [place] [address] Appointment Allergies Active Allergy Reactions Criticality Noted [...] HCl 0.1 % Nasal Solution Administer 1 [place] into nostril in the morning and 1 [place] before bedtime. 0 Active Escitalopram Oxalate 10 [...] Telephone Encounter - Marcia Muhammad OSA - 04/06/2023 11:25 AM EST Patient did not want to schedule until he was here at next treatment so it can be coordinated with treatment day to make one trip per patient and his family. * Telephone Encounter - Charisse Fink RN - 04/06/2023 11:23 AM EST Per office note 04/01/23: "I am planning for follow-up CT scan of the chest, abdomen pelvis in mid-April of 2023 and then will see him back in the clinic. " CT and follow up were not scheduled. Scheduling: please follow up to schedule these. Thanks! 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)*; Malignant neoplasm of transverse colon (HCC); Encounter for antineoplastic chemotherapy 06/25/2023 2:40 PM EST Telemedicine Hepatology, [facility] [address] [place] [address] Andreea Goodman DO [address] [place] [address] Health Maintenance Due Date Last Done Comments [...] this encounter Medical Devices Implanted Type Area It Coordinator Device Identifier Shelf Expiration Date Model / Serial / Lot Power Port 8fr Sngl Lumen Plas - [id number] Implanted:Qty : 1 on 10/22/2022 by James Baeza DO at OR [facility] Right: Chest CR BARD : PERIPHERAL VASCULAR [id number] 02/25/2024 [id number] / / [id number] documented as of this encounter Advance Directives Documents on File Type Date Recorded Patient Paper Stacker Expl 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 Question Answer Comments Discussion of Advance Directives occurred with: Patient Care Teams Airplane Woodworker Relationship Specialty Start Date End Date Escobar Iglesias DO [address] [facility] [place] [address] PCP - General Family Medicine 10/07/22 documented as of this encounter
--- OUTSIDE RECORDS SUMMARY | 2023-05-29 14:15 | External Medical Summary | Summary of Care ---
Author Name Unknown Organization [facility] Address [address] [place] [address] Phone [phone] Care Team Providers Care Journeyman Tool And Die Maker Name Role Phone Escobar Iglesias DO Primary Care Provider Reason for Visit * Reason Onset Date Comments Appointment 04/01/2023 Treatment Encounter Details Date Type Department Care Team (Late st Contact Info) Description 04/01/2023 Telephone Hematology/Oncology [facility] Alejandrina [place] [address] [facility] [place] [address] Jeff Robbins MD 200 [facility] [place] [address] Appointment (Treatment) Allergies Active Allergy Reactions Criticality [...] HCl 0.1 % Nasal Solution Administer 1 [place] into nostril in the morning and 1 [place] before bedtime. 0 Active Escitalopram Oxalate 10 [...] time. Asking for a return call to [phone] documented in this encounter Plan of Treatment Upcoming Encounters Date Type Department Care Team (Late st Contact Info) Description 04/06/2023 10:30 AM EST Laboratory Laboratory [facility] 200 [facility] [place] [address] Alejandrina, Lab Scenery 200 [facility] [place] [address] 04/07/2023 2:30 PM EST Hem/Onc Treatment Hematology/Oncology Treatment, [place] [address] [place] [address] Alejandrina, Chair 10 Hem Onc Scenery [address] [place] [address] 06/25/2023 2:40 PM EST Telemedicine Hepatology, [facility] [place] [address] Andreea Goodman, [address] [place] [address] Health Maintenance Due Date Last Done Comments [...] this encounter Medical Devices Implanted Type Area Saddle Maker Device Identifier Shelf Expiration Date Model / Serial / Lot Power Port 8fr Sngl Lumen Plas - [id number] Implanted:Qty : 1 on 10/22/2022 by James Baeza DO at OR [facility] Right: Chest CR BARD : PERIPHERAL VASCULAR [id number] 02/25/2024 [id number] / / [id number] documented as of this encounter Advance Directives Documents on File Type Date Recorded Patient Final Inspector Paper Expl 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 Question Answer Comments Discussion of Advance Directives occurred with: Patient Care Teams Journeyman Tool And Die Maker Relationship Specialty Start Date End Date Escobar Iglesias DO [address] [place] [address] PCP - General Family Medicine 10/07/22 documented as of this encounter
--- OUTSIDE RECORDS SUMMARY | 2023-05-29 14:15 | External Medical Summary | Summary of Care ---
Author Name Unknown Organization [facility] Address [address] [place] [address] Phone [phone] Care Team Providers Care Dry Cleaning Attendant Name Role Phone Escobar Iglesias DO Primary Care Provider Reason for Visit * Reason Comments Procedure Pump d/c * Episode Based Medications (Routine) - Authorized Specialty Diagnoses / Procedures Referred By Contac t Referred To Contact Diagnoses 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) Encounter for antineoplastic chemotherapy Procedures [place] LEUCOVORIN CALCIUM INJECTION [place] PALONOSETRON HCL [place] FLUOROURACIL INJECTION [place] OXALIPLATIN Jeff Robbins MD [address] [place] [address] Anc Hem/Onc [facility] DEPT CLOSED - 03/10/23 [address] [place] [address] Referral ID Status Reason Start Date Expiration Date V isits Requested Visits Authorized [id number] Authorized 01/26/2023 04/25/2099 [id number] Encounter Details Date Type Department Care Team (Latest Contact Info) Description 03/26/2023 1:00 PM EST Immunization/ Injection Hematology/Oncology Treatment, [place] [address] [place] [address] Nurse, Med 200 [address] [place] [address] 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)*; Malignant neoplasm of transverse colon (HCC); Encounter for antineoplastic chemotherapy Allergies Active Allergy Reactions Criticality Noted Date Comments Prochlorperazine Edema face/lips/tongue High 023 BODY DYSFUNCTION documented as of this encounter (statuses as of 03/26/2023) Medications Medication Sig Dispensed Refills Start Date [...] HCl 0.1 % Nasal Solution Administer 1 [place] into nostril in the morning and 1 [place] before bedtime. 0 Active Escitalopram Oxalate 10 [...] skin once a week. 0 10/06/2022 Active oxyCODONE HCl 5 MG Oral Tablet (Oxy IR)Indications:Lisa gnant neoplasm of transverse colon (HCC),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) Take 1 Tablet by mouth every 4 hours as needed for Pain, Moderate. 30 Tablet 0 01/16/2023 Active busPIRone HCl 10 MG Oral Tablet [...] at bedtime. 60 Tablet 0 03/23/2023 Active Hospital, Clinic, or Other Facility Administered Medication Ordered Dose Route Frequency Start Date End Date Status Fluorouracil (5-Fu) 4,150 mg in NSS 138 mL infusion 4150 mg IV CONTINUOUS 03/23/2023 Ac tive documented as of this encounter (statuses as of 03/26/2023) Active Problems Problem Noted Date Diagnosed Date [...] as of this encounter (statuses as of 03/26/2023) Social History Tobacco Use Types Packs/Day Years [...] Nursing Notes * Rachel Rogers RN - 03/26/2023 2:47 PM EST Pt arrives with home 5Fu infusion pump completed. He states he's tired but otherwise doing ok. Pumpremoved, VAD flushed per protocol and michele needle removed.Patient tolerated treatment well and wasdischarged in stable condition. documented in this encounter Plan of Treatment Upcoming Encounters Date Type Department Care Team (Late st Contact Info) Description 04/01/2023 2:15 PM EST Office Visit Hematology/Oncology [facility] [place] [address] [place] [address] Jeff Robbins MD [address] [place] [address] 04/06/2023 10:30 AM EST Laboratory Laboratory [facility] [place] [address] [place] [id number] Alejandrina Lab [facility] [address] [place] [address] [place] [address] 04/07/2023 2:30 PM EST Hem/Onc Treatment Hematology/Oncology Treatment, [place] [address] [place] [address] Alejandrina, Chair 10 Hem Onc Scenery [address] [place] [address] 06/25/2023 2:40 PM EST Telemedicine Hepatology, [facility] [address] [place] [address] Andreea Goodman, DO [address] [place] [address] Health Maintenance Due Date Last Done Comments [...] this encounter Medical Devices Implanted Type Area Livestock Yard Attendant Device Identifier Shelf Expiration Date Model / Serial / Lot Power Port 8fr Sngl Lumen Plas - [id number] Implanted:Qty : 1 on 10/22/2022 by James Baeza DO at OR [facility] Right: Chest CR BARD : PERIPHERAL VASCULAR [id number] 02/25/2024 [id number] / / [id number] documented as of this encounter Visit Diagnoses [...] PRN Other, IV Flush, Starting on Mamie 03/26/23 at 1308, Until 03/27/23 at 1307, For 24 hours, Do not flush if lock, PICC, or central line not in place; IV infusing or unable to flush. Given 03/26/2023 1:11 PM EST 500 Units sodium chloride 0.9 % flush central line 10 mL 10 mL, IV Push, PRN Other, IV Flush, Starting on Mamie 03/26/23 at 1308, Until 03/27/23 at 1307, For 24 hours, Do not flush if lock, PICC, or central line not in place; IV infusing or unable to flush. Given 03/26/2023 1:11 PM EST 10 mL documented in this encounter Advance Directives Documents on File Type Date Recorded Patient Body Welder Expl 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 Question Answer Comments Discussion of Advance Directives occurred with: Patient Care Teams Dry Cleaning Attendant Relationship Specialty Start Date End Date Escobar Iglesias DO [address] [place] [address] PCP - General Family Medicine 10/07/22 documented as of this encounter
--- OUTSIDE RECORDS SUMMARY | 2023-05-29 14:15 | External Medical Summary | Summary of Care ---
Author Name Unknown Organization [facility] Address [address] [place] [address] Phone [phone] Care Team Providers Care Inspectors And Regulatory Officers Name Role Phone Escobar Iglesias DO Primary Care Provider Reason for Visit * Reason Onset Date Comments Appointment 04/06/2023 Encounter Details Date Type Department Care Team (Late st Contact Info) Description 04/06/2023 Telephone Hematology/Oncology Treatment, [place] [address] [place] [address] Jeff Robbins MD 200 [place] [address] Appointment Allergies Active Allergy Reactions Criticality Noted [...] HCl 0.1 % Nasal Solution Administer 1 [address] into nostril in the morning and 1 [address] before bedtime. 0 Active Escitalopram Oxalate 10 [...] PM EST Hem/Onc Treatment Hematology/Oncolog y Treatment, [place] [address] [place] [address] Alejandrina, Chair 10 Hem Onc Scenery [address] [place] [address] 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)*; Malignant neoplasm of transverse colon (HCC); Encounter for antineoplastic chemotherapy 06/25/2023 2:40 PM EST Telemedicine Hepatology, [facility] [address] [place] [address] Andreea Goodman DO [address] [place] [address] Health Maintenance Due Date Last Done Comments [...] this encounter Medical Devices Implanted Type Area Wood Gluer Device Identifier Shelf Expiration Date Model / Serial / Lot Power Port 8fr Sngl Lumen Plas - [id number] Implanted:Qty : 1 on 10/22/2022 by James Baeza DO at OR [facility] Right: Chest CR BARD : PERIPHERAL VASCULAR [id number] 02/25/2024 [id number] / / [id number] documented as of this encounter Advance Directives Documents on File Type Date Recorded Patient Virtual Office Assistant Expl 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 Question Answer Comments Discussion of Advance Directives occurred with: Patient Care Teams Inspectors And Regulatory Officers Relationship Specialty Start Date End Date Escobar Iglesias DO [address] [facility] [place] [address] PCP - General Family Medicine 10/07/22 documented as of this encounter
--- OUTSIDE RECORDS SUMMARY | 2023-05-29 14:15 | External Medical Summary | Summary of Care ---
Author Name Unknown Organization [facility] Address [address] [place] [address] Phone [phone] Care Team Providers Care Youth Program Director Name Role Phone Escobar Iglesias DO Primary Care Provider Reason for Visit * Reason Onset Date Comments Appointment 04/06/2023 Encounter Details Date Type Department Care Team (Late st Contact Info) Description 04/06/2023 Telephone Hematology/Oncology Treatment, [place] [address] [place] [address] Jeff Robbins MD 200 [place] [address] Appointment Allergies Active Allergy Reactions Criticality Noted [...] HCl 0.1 % Nasal Solution Administer 1 [place] into nostril in the morning and 1 [place] before bedtime. 0 Active Escitalopram Oxalate 10 [...] 2:30 PM EST Hem/Onc Treatment Hematology/Oncology Treatment, [place] [address] [place] [facility] [place] [address] Alejandrina, Chair 10 Hem Onc Scenery [address] [facility] [address] 06/25/2023 2:40 PM EST Telemedicine Hepatology, [facility] [address] [place] [address] Andreea Goodman DO [address] [place] [address] Health Maintenance Due Date Last Done Comments [...] this encounter Medical Devices Implanted Type Area Riveter Device Identifier Shelf Expiration Date Model / Serial / Lot Power Port 8fr Sngl Lumen Plas - [id number] Implanted:Qty : 1 on 10/22/2022 by James Baeza DO at OR [facility] Right: Chest CR BARD : PERIPHERAL VASCULAR [id number] 02/25/2024 [id number] / / [id number] documented as of this encounter Advance Directives Documents on File Type Date Recorded Patient Sanitation Worker Expl 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 Question Answer Comments Discussion of Advance Directives occurred with: Patient Care Teams Youth Program Director Relationship Specialty Start Date End Date Escobar Iglesias DO [address] [place] [address] PCP - General Family Medicine 10/07/22 documented as of this encounter
--- OUTSIDE RECORDS SUMMARY | 2023-05-29 14:15 | External Medical Summary | Summary of Care ---
Author Name Unknown Organization [facility] Address [address] [place] [address] Phone [phone] Care Team Providers Care Business Lawyer Name Role Phone Escobar Iglesias DO Primary Care Provider Reason for Referral * Precert (Within 10 days (routine)) - Pending Review Specialty Diagnoses / Procedures Referred By Contac t Referred To Contact Radiology Diagnoses 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) Procedures CT CHEST/ABDOMEN/PELVIS WITH IV CONTRAST WITH ORAL CONTRAST Jeff Robbins MD [address] [place] [address] Referral ID Status Reason Start Date Expiration Date V isits Requested Visits Authorized [id number] Pending Review 04/01/2023 999 999 Reason for Visit * Reason Comments Re-Check Encounter Details Date Type Department Care Team (Late st Contact Info) Description 04/01/2023 2:15 PM EST Office Visit Hematology/[facility] [address] [place] [address] Jeff Robbins MD [address] [place] [address] Malignant neoplasm of transverse colon (HCC)*; 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); Acute deep vein thrombosis (DVT) of iliac [...] HCl 0.1 % Nasal Solution Administer 1 [place] into nostril in the morning and 1 [place] before bedtime. 0 Active Escitalopram Oxalate 10 [...] before bedtime. 270 Tablet 0 01/19/2023 Active hydroCHLOROthiazi de 25 MG Oral Tablet [...] Pain, Moderate. 60 Tablet 0 04/01/2023 Active oxyCODONE HCl 5 MG Oral Tablet (Oxy IR)Indications:Ma lignant neoplasm of transverse colon (HCC),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) Take 1 Tablet by mouth every 4 hours as needed for Pain, Moderate. 30 Tablet 0 01/16/2023 3 Discontinue d(Refill) Hospital, Clinic, or Other [...] Sign Reading Time Taken Comments Blood Pressure 103/70 04/01/2023 2:09 PM EST Pulse 111 04/01/2023 2:09 PM EST Temperature 36.3 C (97.3 F) 04/01/2023 2:09 PM ES T Respiratory Rate - - Oxygen Saturation 98% 04/01/2023 2:09 PM EST Inhaled Oxygen Concentration - - Weight 59.7 kg (131 lb 11.2 oz) 04/01/2023 2:09 PM EST Height - - Body Mass Index 21.27 10/22/2022 12:03 PM EDT documented in this [...] Progress Notes * Jeff Robbins MD - 04/01/2023 2:15 PM EST Hematology/Oncology Outpatient Clinic note [facility] [place] [address] [place] [address] Name: Escobar Reagan Date: 01/27/2023 CHIEF COMPLAINT: [...] mutation -KRAS, NRAS --> negative -BRAF negative [facility]. Iron deficiency. Right lower extremity DVT (02/06/2023): He is on Eliquis. Abdominal ascites, S/P paracentesis, 4 L fluid removed, cytology negative (02/09/2023). DATE OF DIAGNOSIS: 09/25/22 TREATMENT HISTORY: IV Venofer weekly x 2 completed 10/17/22 CURRENT TREATMENT: MODIFIED FOLFOX6 every 14 days (10/10/22 - ) 01/06/2023-->decided to discontinue oxaliplatin because of concerns of worsening neuropathy. Will continue 5-Fluorouracil and leucovorin every 2 weekly. DIAGNOSTIC WORKUP: Patient complained of fullness in [...] ambulating with the help of the cane. Recently few days back he had an accidental fall in the shower, injured left side of the face, right shoulder region, does complain of some right-sided chest pain, he takes oxycodone as needed for the symptomatic treatment of the pain, he is also on Eliquis for underlying thrombotic complications, has significant bruising involving the left face, no bleeding from the sites. No nausea or vomiting.No diarrhea, no constipation, current weight around 131 lb. Earlier he would significant leg edema and abdominal distention, currently he is on hydrochlorothiazide and Aldactone every day, leg edema and abdominal distention has improved significantly. Past Surgical History: Procedure Laterality Date INSER TUNN ACC DEV;5 YRS/OLDER Right 10/22/2022 INSERT TUNNELED CENTRAL VENOUS ACCESS WITH SUBQ PORT performed by James Baeza DO at OR [facility] IR BIOPSY 09/25/2022 Social History Socioeconomic History [...] HCl 0.1 % Nasal Solution Administer 1 [place] into nostril in the morning and 1 [place] before bedtime. Escitalopram Oxalate 10 MG Oral Tablet (Lexapro) Take 1 Tablet by mouth in the morning. Loperamide HCl 2 MG Oral Capsule (Imodium) Take 1 Capsule by mouth 4 times a day as needed for Diarrhea. 60 Capsule 0 Buprenorphine 5 MCG/HR Transdermal Patch Weekly Place 1 Patch topically on the skin once a week. (Patient not taking: Reported on 01/08/2023) oxyCODONE HCl 5 MG Oral Tablet (Oxy IR) Take 1 Tablet by mouth every 4 hours as needed for Pain, Moderate. 30 Tablet 0 busPIRone HCl 10 MG Oral Tablet (Buspar) Take 1 Tablet by mouth in the morning and 1 Tablet at noonand 1 Tablet before bedtime. 270 Tablet 0 hydroCHLOROthiazide 25 MG Oral Tablet (Hydrodiuril) Take 1 Tablet by mouth in the morning. 30 Tablet 2 Spironolactone 50 MG Oral Tablet (Aldactone) Take 1 Tablet by mouth in the morning. 30 Tablet 2 Apixaban 5 MG Oral Tablet (Eliquis) Take 10 mg (2 tablets) twice daily for 7 days followed by 5 mg (one tablet) twice daily 50 Tablet 2 Loratadine 10 MG Oral Tablet (Claritin) Take 1 Tablet by mouth in the morning. 30 Tablet 3 Mirtazapine 30 MG Oral Tablet (Remeron) Take 1 Tablet by mouth at bedtime. 60 Tablet 0 Current Facility-Administered Medications Medication Dose Route Frequency Provider Last Rate Last Admin Fluorouracil (5-Fu) 4,150 mg in NSS 138 mL infusion 4,150 mg Intravenous Continuous Jeff Robbins MD OBJECTIVE: BP 103/70 (BP Site: Left Arm, BP Position: Sitting, BP Cuff Size: Regular) | Pulse 111 | Temp 36.3 C (97.3 F) | Wt 59.7 kg (131 lb 11.2 oz) | SpO2 98% | BMI 21.27 kg/m | BSA 1.67 m PHYSICAL EXAM: ECOG: Performance Status 1 [...] 5800, H&H of 12.4/35, Platelet count of 239749. -CEA level--> 38.9 (01/26/2023). Bilateral lower extremity Doppler evaluation:(02/06/2023) -right lower [...] --> no DVT. He was admitted at [facility] for volume overload increasing ascites. S/P abdominal paracentesis on 02/09/2023 at [facility], for L of the fluid removed. Cytology --> negative for malignancy. 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 Right lower extremity DVT , on Eliquis. Pseudo cirrhosis of liver. Currently he is on 5-Fluorouracil and leucovorin maintenance treatment every 2 weekly. No increasing neuropathy symptoms at this time, recently few days back he would an accidental fall with injury to the left side of the face and right shoulder, he takes oxycodone for the symptomatic treatment for the pain. Reviewed blood workup done about a week back when he received last treatment. Overall stable blood workup noted Will continue 5-Fluorouracil leucovorin every 2 weekly as we planned. He will continue Eliquis 5 mg twice a day. I am planning for follow-up CT scan of the chest, abdomen pelvis in mid-April of 2023 and then will see him back in the clinic. Check Hepatitis B surface antigen every 3 months while on chemotherapy -It was negative on 03/02/2023.. Per hepatology if HBsAg becomes positive, start entecavir 0.5 mg once daily and refer patient back to hepatology. CEA every 4 to 6 weekly. Latest CEA level is around 38.9 as of 01/26/2023. As leg edema has improved, would like [...] documented in this encounter Nursing Notes * Jad Loving MED ASSIST - 04/01/2023 2:10 PM EST Patient identified by name and date of . Do you have any concerns about pain management for today's visit? Yes. Patient instructed to discuss pain concerns with provider during the visit today Living Will or Advance Directive for Health Care as noted on problem list. My [facility] is a way you can talk to your provider online through e-mail. Would you like to sign up? I can activate it for you? ALREADY ACTIVE BP 103/70 (BP Site: Left Arm, BP Position: Sitting, BP Cuff Size: Regular) | Pulse 111 | Temp 36.3 C (97.3 F) | Wt 59.7 kg (131 lb 11.2 oz) | SpO2 98% | BMI 21.27 kg/m | BSA 1.67 m Patient was instructed to not get up on the exam table/exam chair until directed and assisted by their provider; patient is to remain seated in the chair/ wheelchair/ exam table/ exam chair for fall prevention and safety reasons. Patient is aware to have assistance to step down off exam table/exam chair with personnel. Patient voiced full comprehension of instructions. Patient stated he fell in the shower on Thursday. Has injured lip and has a black eye. Patient alsostates he hurt his right shoulder and it hurts to breath deep. documented in this encounter Plan of Treatment Upcoming Encounters Date Type Department Care Team (Late st Contact Info) Description 04/06/2023 10:30 AM EST Laboratory Laboratory [facility] Alejandrina [place] [address] [facility] [place] [id number] Alejandrina [place] [address] [place] [address] 04/07/2023 2:30 PM EST Hem/Onc Treatment Hematology/Oncology Treatment, [place] [address] [facility] [place] [address] Alejandrina, Chair 10 Hem Onc Scenery [address] [place], [place] [address] 06/25/2023 2:40 PM EST Telemedicine Hepatology, [facility] [address] [place] [address] Andreea Goodman, [address] [place] [address] Scheduled Orders Name Type Priority Associated Diagnoses Orde r Schedule CT CHEST/ABDOMEN/PELVIS WITH IV CONTRAST WITH ORAL CONTRAST Medical Imaging Routine 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) Expected: 04/01/2023, Expires: 04/01/2024 Health Maintenance Due Date Last Done Comments [...] this encounter Medical Devices Implanted Type Area Rock Breaker Device Identifier Shelf Expiration Date Model / Serial / Lot Power Port 8fr Sngl Lumen Plas - [id number] Implanted:Qty : 1 on 10/22/2022 by James Baeza DO at OR [facility] Right: Chest CR BARD : PERIPHERAL VASCULAR [id number] 02/25/2024 [id number] / / [id number] documented as of this encounter Visit Diagnoses Diagnosis Malignant neoplasm of transverse colon (HCC)- Primary Malignant 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) Secondary malignant neoplasm of liver Acute deep vein thrombosis (DVT) of iliac vein of right lower extremity (HCC) documented in this encounter Advance Directives Documents on File Type Date Recorded Patient Log Sorter Expl 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 Question Answer Comments Discussion of Advance Directives occurred with: Patient Care Teams Business Lawyer Relationship Specialty Start Date End Date Escobar Iglesias DO [address] [place] [address] PCP - General Family Medicine 10/07/22 documented as of this encounter"
--- OUTSIDE RECORDS SUMMARY | 2023-05-29 14:15 | External Medical Summary ---
Author Name Unknown Address Unknown Organization K09:[facility] [place] [address] Laboratory Report Ordering Provider Test Date Status RASHAAD BARAHONA 04/06/2023 10:31:43 Final Observation Date Value Abnormality Reference (Units ) Status WBC, Total 04/06/2023 10:31:43 6.61 4.00-10.8 0 (K/uL) Final RBC 04/06/2023 10:31:43 3.14 4.50-5.25 (M/uL) Final Hemoglobin 04/06/2023 10:31:43 11.2 Below low normal 14 .0-16.8 (g/dL) Final HCT 04/06/2023 10:31:43 34.4 Below low normal 40. 0-48.4 (%) Final MCV 04/06/2023 10:31:43 109.6 82.0-99.5 (fL) Final MCH 04/06/2023 10:31:43 35.7 27.0-34.0 (pg) Final MCHC 04/06/2023 10:31:43 32.6 32.0-36.0 (g/dL) Final RDW 04/06/2023 10:31:43 16.0 11.5-15.5 (%) Final Platelets 04/06/2023 10:31:43 181 140-400 (K /uL) Final MPV 04/06/2023 10:31:43 8.8 6.6-11.1 ( fL) Final Performing Location [facility] [place] [address]
--- OUTSIDE RECORDS SUMMARY | 2023-05-29 14:15 | External Medical Summary | Summary of Care ---
Author Name Unknown Organization [facility] Address [address] [place] [address] Phone [phone] Care Team Providers Care Plastics Fabricator Or Welder Name Role Phone Escobar Iglesias DO Primary Care Provider Encounter Details Date Type Department Care Team (Late st Contact Info) Description 04/06/2023 Orders Only Hematology/Oncology [facility] Alejandrina [place] [address] [facility] [place] [address] Jeff Robbins MD [address] [place] [address] Malignant neoplasm of transverse colon (HCC)*; 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) Allergies Active Allergy Reactions Criticality Noted [...] HCl 0.1 % Nasal Solution Administer 1 [place] into nostril in the morning and 1 [place] before bedtime. 0 Active Escitalopram Oxalate 10 [...] Progress Notes * Jeff Robbins MD - 04/06/2023 12:24 PM EST Patient to continue leucovorin/ 5FU every 2 weeks documented in this encounter Plan of Treatment Upcoming Encounters Date Type Department Care Team (Latest Contact Info) Description 04/07/2023 2:30 PM EST Hem/Onc Treatment Hematology/Oncolog y Treatment, [place] [address] [place] [address] Alejandrina, Chair 10 Hem Onc Scenery [address] [place] [address] 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)*; Malignant neoplasm of transverse colon (HCC); Encounter for antineoplastic chemotherapy 06/25/2023 2:40 PM EST Telemedicine Hepatology, [facility] [address] [place] [address] Andreea Goodman DO [address] [place] [address] Health Maintenance Due Date Last Done Comments [...] this encounter Medical Devices Implanted Type Area Boiling Tub Operator Device Identifier Shelf Expiration Date Model / Serial / Lot Power Port 8fr Sngl Lumen Plas - [id number] Implanted:Qty : 1 on 10/22/2022 by James Baeza DO at OR [facility] Right: Chest CR BARD : PERIPHERAL VASCULAR [id number] 02/25/2024 [id number] / / [id number] documented as of this encounter Visit Diagnoses Diagnosis Malignant neoplasm of transverse colon (HCC)- Primary Malignant 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) Secondary malignant neoplasm of liver 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)- Primary 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) Malignant neoplasm of transverse colon Encounter for antineoplastic chemotherapy documented in this encounter Advance Directives Documents on File Type Date Recorded Patient Custodial Worker Expl 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 Question Answer Comments Discussion of Advance Directives occurred with: Patient Care Teams Plastics Fabricator Or Welder Relationship Specialty Start Date End Date Escobar Iglesias DO [address] [facility] [place] [address] PCP - General Family Medicine 10/07/22 documented as of this encounter
--- OUTSIDE RECORDS SUMMARY | 2023-05-29 14:15 | External Medical Summary | Summary of Care ---
Author Name Unknown Organization [facility] Address [address] [place] [address] Phone [phone] Care Team Providers Care Plant Buyer Name Role Phone Escobar Iglesias DO Primary Care Provider Reason for Visit * Reason Onset Date Comments Appointment 04/06/2023 Encounter Details Date Type Department Care Team (Late st Contact Info) Description 04/06/2023 Telephone Hematology/Oncology Treatment, [place] [address] [place] [address] Jeff Robbins MD [address] [place] [address] Appointment Allergies Active Allergy Reactions Criticality Noted [...] HCl 0.1 % Nasal Solution Administer 1 [place] into nostril in the morning and 1 [place] before bedtime. 0 Active Escitalopram Oxalate 10 [...] encounter Miscellaneous Notes * Telephone Encounter - Catherine Hardwick OSA - 04/07/2023 11:14 AM EST Patient scheduled for CT Scan 05/05/23 w/ treatment. Labs at 05/04/23. Follow up scheduled for 05/19/23 with treatment. Labs at 05/18/23. 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 [address] [place] [address] 05/05/2023 1:30 PM EST [facility] [address] Alejandrina, Chair [address] Hem [address] [place] [address] 05/18/2023 11:00 AM EST Laboratory Laboratory, [facility] [id number] Betito Huerta [facility] [address] [facility] [address] 05/19/2023 11:15 AM EST [facility] [address] Jeff Robbins MD [address] [facility] [address] 05/19/2023 11:45 AM EST Hem/Onc Treatment Hematology/Oncolog [facility] Treatment, [place] [address] [facility] [address] Alejandrina, Chair 8 Hem [facility] [address] [place], [place] [address] [address] 06/25/2023 2:40 PM EST Telemedicine Hepatology, [facility] [address] [facility] [place] [address] Andreea Goodman DO [address] [place] [address] Health Maintenance Due Date Last Done Comments [...] this encounter Medical Devices Implanted Type Area Community Health Advocate Device Identifier Shelf Expiration Date Model / Serial / Lot Power Port 8fr Sngl Lumen Plas - [id number] Implanted:Qty : 1 on 10/22/2022 by James Baeza DO at OR [facility] Right: Chest CR BARD : PERIPHERAL VASCULAR [id number] 02/25/2024 [id number] / / [id number] documented as of this encounter Advance Directives Documents on File Type Date Recorded Patient Residential Youth Counselor Expl 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 Question Answer Comments Discussion of Advance Directives occurred with: Patient Care Teams Plant Buyer Relationship Specialty Start Date End Date Escobar Iglesias DO [address] [place] [address] PCP - General Family Medicine 10/07/22 documented as of this encounter
--- OUTSIDE RECORDS SUMMARY | 2023-05-29 14:15 | External Medical Summary | Summary of Care ---
Author Name Unknown Organization [facility] Address [address] [place] [address] Phone [phone] Care Team Providers Care Supervisor Dried Yeast Name Role Phone Escobar Iglesias DO Primary Care Provider Encounter Details Date Type Department Care Team (Late st Contact Info) Description 04/06/2023 Orders Only [facility] [address] [place] [address] Jeff Robbins MD [address] [place] [address] Allergies Active Allergy Reactions Criticality Noted Date [...] HCl 0.1 % Nasal Solution Administer 1 [place] into nostril in the morning and 1 [place] before bedtime. 0 Active Escitalopram Oxalate 10 [...] 138 mL infusion 4150 mg IV CONTINUOUS 04/06/2023 04/08/2023 Active Fluorouracil (5-Fu) 4,150 mg in NSS 138 [...] PM EST Hem/Onc Treatment Hematology/Oncolog y Treatment, [place] [address] [place] [address] Alejandrina, Chair 10 Hem Onc Scenery [address] [place] [address] 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)*; Malignant neoplasm of transverse colon (HCC); Encounter for antineoplastic chemotherapy 06/25/2023 2:40 PM EST Telemedicine Hepatology, [facility] [address] [place] [address] Andreea Goodman, [address] [place] [address] Health Maintenance Due Date Last Done Comments [...] this encounter Medical Devices Implanted Type Area Outsole Paraffiner Device Identifier Shelf Expiration Date Model / Serial / Lot Power Port 8fr Sngl Lumen Plas - [id number] Implanted:Qty : 1 on 10/22/2022 by James Baeza DO at OR [facility] Right: Chest CR BARD : PERIPHERAL VASCULAR [id number] 02/25/2024 [id number] / / [id number] documented as of this encounter Advance Directives Documents on File Type Date Recorded Patient Loss Prevention/Safety District Manager Expl 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 Question Answer Comments Discussion of Advance Directives occurred with: Patient Care Teams Supervisor Dried Yeast Relationship Specialty Start Date End Date Ecsobar Iglesias DO [address] [place] [address] PCP - General Family Medicine 10/07/22 documented as of this encounter
--- OUTSIDE RECORDS SUMMARY | 2023-05-29 14:16 | External Medical Summary ---
Author Name Unknown Address Unknown Organization K0G:[facility] [address] [place] [address] Laboratory Report Ordering Provider Test Date Status RASHAAD BARAHONA 03/23/2023 10:23:02 Final Observation Date Value Abnormality Reference (Units ) Status BUN 03/23/2023 10:23:02 26 Above high normal 6-20 (mg/dL) Final Creatinine 03/23/2023 10:23:02 1.0 0.6-1.2 (mg/dL) Final Glomerular filtration rate/1.73 sq M.predicted [Volume Rate/Area] in Serum, Plasma or Blood by Creatinine-based formula (CKD-EPI) 03/23/2023 10:23:02 77 >=60 (mL/min) Final eGFR is calculated based on the CKD-EPI 2020 equation SODIUM 03/23/2023 10:23:02 136 135-146 (m mol/L) Final Potassium 03/23/2023 10:23:02 3.6 3.5-5.1 (m mol/L) Final Cl 03/23/2023 10:23:02 101 98-107 (mm ol/L) Final CO2 03/23/2023 10:23:02 24 22-32 (mmo l/L) Final Anion gap 03/23/2023 10:23:02 11 7-15 (mmol /L) Final Glucose 03/23/2023 10:23:02 111 70-120 (mg /dL) Final Albumin 03/23/2023 10:23:02 3.1 Below low normal 3.8 -5.0 (g/dL) Final AST (Aspartate aminotransferase) 03/23/2023 10:23:02 64 Above high normal 10-50 (U/L) Final Alk Phos 03/23/2023 10:23:02 403 Above high normal 35 -130 (U/L) Final Bilirubin, Total 03/23/2023 10:23:02 0.5 <=1 .2 (mg/dL) Final Calcium 03/23/2023 10:23:02 9.6 8.4-10.2 ( mg/dL) Final Protein 03/23/2023 10:23:02 6.7 6.0-8.3 (g /dL) Final ALT (Alanine aminotransferase) 03/23/2023 10:23:02 25 10-50 (U/L) Tres ordonez Performing Location [facility] [address] [place] [address]
--- OUTSIDE RECORDS SUMMARY | 2023-05-29 14:16 | External Medical Summary | Summary of Care ---
Author Name Unknown Organization [facility] Address [address] [place] [address] Phone [phone] Care Team Providers Care Newspaper Editor Managing Name Role Phone Escobar Iglesias DO Primary Care Provider Reason for Visit * Reason Onset Date Comments Medication Refill 03/23/2023 Encounter Details Date Type Department Care Team (Late st Contact Info) Description 03/23/2023 Refill Palliative Medicine, [facility] [address] [facility] 5th [place] [address] Katelyn Mckeon CRNP [address] [place] [address] Anxiety disorder due to medical condition Allergies Active Allergy Reactions Criticality Noted Date Comments Prochlorperazine Edema face/lips/tongue High 023 BODY DYSFUNCTION documented as of this encounter (statuses as of 03/23/2023) Medications Medication Sig Dispensed Refills Start Date [...] HCl 0.1 % Nasal Solution Administer 1 [place] into nostril in the morning and 1 [place] before bedtime. 0 Active Escitalopram Oxalate 10 [...] at bedtime. 60 Tablet 0 03/23/2023 Active Mirtazapine 30 MG Oral Tablet (Remeron)Indicati ons:Anxiety disorder due to medical condition Take 1 Tablet by mouth at bedtime. 60 Tablet 0 01/16/2023 3 Discontinue d(Refill) Hospital, Clinic, or Other Facility Administered Medication Ordered Dose Route Frequency Start Date End Date Status Fluorouracil (5-Fu) 4,425 mg in NSS 138 mL infusion 4425 mg IV CONTINUOUS 03/02/2023 Ac tive documented as of this encounter (statuses as of 03/23/2023) Active Problems Problem Noted Date Diagnosed Date [...] as of this encounter (statuses as of 03/23/2023) Social History Tobacco Use Types Packs/Day Years [...] encounter Miscellaneous Notes * Telephone Encounter - Katelyn Mckeon CRNP - 03/23/2023 2:16 PM ESTSigned Prescriptions: Disp Refills Mirtazapine 30 MG Oral Tablet (Remeron) 60 Tab*0 Sig: Take 1 Tablet by mouth at bedtime. Authorizing Provider: KATELYN MCKEON * Telephone Encounter - Shabnam Okeefe CPhT - 03/23/2023 2:07 PM EST Did you pend patient's preferred pharmacy and medication before forwarding?yes Pharmacy: [id number] [address] [facility] Pending Prescriptions: Disp Refills Mirtazapine 30 MG Oral Tablet (Remeron) 60 Tab*0 Sig: Take 1 Tablet by mouth at bedtime. Last Visit: 10/22/2022 (in office), 03/18/2023 (telemedicine) Next Visit: Visit date not found If no future appointments scheduled, and last appointment is greater than a year ago, please schedule patient for a follow-up appointment Last date the medication was ordered: 01/16/23 Is this request for a controlled substance?No Urine Drug Screen:No results found for this or any previous visit. Patient Phone Numbers Labs: Lab Results Component Value Date/Time CREAT 1.0 03/23/2023 10:23 AM POTASSIUM 3.6 03/23/2023 10:23 AM LDLCALC 129 07/22/2022 10:44 AM ALT 25 03/23/2023 10:23 AM * Telephone Encounter - Shruthi Coulter CPhT - 03/23/2023 2:03 PM EST Call transferred to [facility] speciality line Thank you, Shruthi Coulter Calender Machine Operator II [facility] ([facility]) (formerly Telepharmacy) 03/23/2023 2:03 PM documented in this encounter Plan of Treatment Upcoming Encounters Date Type Department Care Team (Latest Contact Info) Description 03/24/2023 1:15 PM EST Hem/Onc Treatment Hematology/Oncolog y Treatment, [place] [address] [facility] [place] [address] Alejandrina, Chair 10 Hem Onc [address] [place] [address] 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)*; Malignant neoplasm of transverse colon (HCC); Encounter for antineoplastic chemotherapy 03/31/2023 8:15 AM EST Office Visit Hematology/Oncolog y [facility] [place] [address] [place] [address] Jeff Robbins MD [address] [place] [address] 06/25/2023 2:40 PM EST Telemedicine Hepatology, [facility] [address] [place] [address] Andreea Goodman DO [address] [place] [address] Health Maintenance Due Date Last Done Comments [...] this encounter Medical Devices Implanted Type Area Outreach Clinician Device Identifier Shelf Expiration Date Model / Serial / Lot Power Port 8fr Sngl Lumen Plas - [id number] Implanted:Qty : 1 on 10/22/2022 by James Baeza DO at OR [facility] Right: Chest CR BARD : PERIPHERAL VASCULAR [id number] 02/25/2024 [id number] / / [id number] documented as of this encounter Visit Diagnoses Diagnosis 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)- Primary 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) Malignant neoplasm of transverse colon Encounter for antineoplastic chemotherapy documented in this encounter Advance Directives Documents on File Type Date Recorded Patient Armature Winder Repair Helper Expl 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 Question Answer Comments Discussion of Advance Directives occurred with: Patient Care Teams Newspaper Editor Managing Relationship Specialty Start Date End Date Escobar Iglesias DO [address] [place] [address] PCP - General Family Medicine 10/07/22 documented as of this encounter
--- OUTSIDE RECORDS SUMMARY | 2023-05-29 14:16 | External Medical Summary | Summary of Care ---
Author Name Unknown Organization [facility] Address [address] [place] [address] Phone [phone] Care Team Providers Care Shake Table Operator Name Role Phone Escobar Iglesias DO Primary Care Provider Reason for Visit * Reason Comments Outpatient Testing Encounter Details Date Type Department Care Team (Late st Contact Info) Description 03/16/2023 10:30 AM EST Laboratory Laboratory, [facility] [address] [place] [phone] [facility] [address] [place] [address] 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); Malignant neoplasm of transverse colon (HCC) Allergies Active Allergy Reactions Criticality Noted Date Comments Prochlorperazine Edema face/lips/tongue High 023 BODY DYSFUNCTION documented as of this encounter (statuses as of 03/16/2023) Medications Medication Sig Dispensed Refills Start Date [...] HCl 0.1 % Nasal Solution Administer 1 [place] into nostril in the morning and 1 [place] before bedtime. 0 Active Escitalopram Oxalate 10 [...] Pain, Moderate. 30 Tablet 0 01/16/2023 Active Mirtazapine 30 MG Oral Tablet (Remeron)Indication s:Anxiety disorder due to medical condition Take 1 Tablet by mouth at bedtime. 60 Tablet 0 01/16/2023 Active busPIRone HCl 10 [...] twice daily 50 Tablet 2 01/27/2023 Active Hospital, Clinic, or Other Facility Administered Medication Ordered Dose Route Frequency Start Date End Date Status Fluorouracil (5-Fu) 4,425 mg in NSS 138 mL infusion 4425 mg IV CONTINUOUS 03/02/2023 Ac tive documented as of this encounter (statuses as of 03/16/2023) Active Problems Problem Noted Date Diagnosed Date Dehydration 01/05/2023 Hypokalemia 01/05/2023 Metastasis to liver 10/07/2022 Malignant neoplasm of transverse colon Encounter for antineoplastic chemotherapy 2022 JOY (generalized anxiety disorder) 09/26/2022 Severe protein-energy malnutrition 09/25/2022 Abdominal mass, right upper quadrant 09/24/2022 Colonic mass 09/24/2022 Elevated LFTs 09/24/2022 Iron deficiency anemia 09/24/2022 ANTHONY (acute kidney injury) 09/24/2022 documented as of this encounter (statuses as of 03/16/2023) Social History Tobacco Use Types Packs/Day Years Used Date Smoking Tobacco: Never Smokeless Tobacco: Never Alcohol Use Standard Drinks/Week Comments Never 0 (1 standard drink = 0.6 oz pur e alcohol) Sex and Gender Information Value Date Recorded [...] Care Team (Late st Contact Info) Description 03/17/2023 1:00 PM EST Hem/Onc Treatment Hematology/Oncology Treatment, [place] [address] [place] [address] Alejandrina, Chair 2 Hem Onc [place] [address] [place] [address] 03/18/2023 2:00 PM EST Telemedicine Palliative Medicine, [facility] [address] [facility] 5th Floor [place] [address] Eli Mckeon CRNP [address] [facility] [place] [address] 03/31/2023 8:15 AM EST Office Visit Hematology/Oncology [facility] [address] [facility] [place] [address] Jeff Robbins MD [address] [place] [address] 06/25/2023 2:40 PM EST Telemedicine Hepatology, [facility] [address] [facility] [place] [address] Andreea Goodman DO [address] [place] [address] Pending Results Name Type Priority Associated Diagnoses Date /Time CBC WITH WBC DIFFERENTIAL Lab STAT 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) 03/16/2023 10:22 AM EST COMPREHENSIVE METABOLIC PANEL Lab STAT 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) 03/16/2023 10:22 AM EST CBC Lab STAT 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) 03/16/2023 10:22 AM EST DIFFERENTIAL, AUTOMATED Lab STAT 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) 03/16/2023 10:22 AM EST Health Maintenance Due Date Last [...] this encounter Medical Devices Implanted Type Area Stock Drier Tender Device Identifier Shelf Expiration Date Model / Serial / Lot Power Port 8fr Sngl Lumen Plas - [id number] Implanted:Qty : 1 on 10/22/2022 by James Baeza DO at OR [facility] Right: Chest CR BARD : PERIPHERAL VASCULAR [id number] 02/25/2024 [id number] / / [id number] documented as of this encounter Visit Diagnoses Diagnosis 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) 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) Malignant neoplasm of transverse colon documented in this encounter Advance Directives Documents on File Type Date Recorded Patient Mine Engineering Supervisor Expl 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 Question Answer Comments Discussion of Advance Directives occurred with: Patient Care Teams Shake Table Operator Relationship Specialty Start Date End Date Escobar Iglesias DO [address] [place] [address] PCP - General Family Medicine 10/07/22 documented as of this encounter
--- OUTSIDE RECORDS SUMMARY | 2023-05-29 14:16 | External Medical Summary ---
Author Name Unknown Address Unknown Organization [facility] [address] [place] [address] Laboratory Report Ordering Provider Test Date Status RASHAAD BARAHONA 03/16/2023 10:22:57 Final Observation Date Value Abnormality Reference (Units ) Status BUN 03/16/2023 10:22:57 28 Above high normal 6-20 (mg/dL) Final Creatinine 03/16/2023 10:22:57 1.1 0.6-1.2 (mg/dL) Final Glomerular filtration rate/1.73 sq M.predicted [Volume Rate/Area] in Serum, Plasma or Blood by Creatinine-based formula (CKD-EPI) 03/16/2023 10:22:57 66 >=60 (mL/min) Final eGFR is calculated based on the CKD-EPI 2020 equation SODIUM 03/16/2023 10:22:57 136 135-146 (m mol/L) Final Potassium 03/16/2023 10:22:57 4.2 3.5-5.1 (m mol/L) Final Cl 03/16/2023 10:22:57 101 98-107 (mm ol/L) Final CO2 03/16/2023 10:22:57 25 22-32 (mmo l/L) Final Anion gap 03/16/2023 10:22:57 10 7-15 (mmol /L) Final Glucose 03/16/2023 10:22:57 118 70-120 (mg /dL) Final Albumin 03/16/2023 10:22:57 3.1 Below low normal 3.8 -5.0 (g/dL) Final AST (Aspartate aminotransferase) 03/16/2023 10:22:57 41 10-50 (U/L) Fin al Alk Phos 03/16/2023 10:22:57 299 Above high normal 35 -130 (U/L) Final Bilirubin, Total 03/16/2023 10:22:57 0.6 <=1 .2 (mg/dL) Final Calcium 03/16/2023 10:22:57 9.5 8.4-10.2 ( mg/dL) Final Protein 03/16/2023 10:22:57 6.4 6.0-8.3 (g /dL) Final ALT (Alanine aminotransferase) 03/16/2023 10:22:57 11 10-50 (U/L) Tres ordonez Performing Location [facility] [address] [place] [address]
--- OUTSIDE RECORDS SUMMARY | 2023-05-29 14:16 | External Medical Summary ---
Author Name Unknown Address Unknown Organization [facility] [address] [place] [address] Laboratory Report Ordering Provider Test Date Status RASHAAD BARAHONA 03/16/2023 10:22:57 Final Observation Date Value Abnormality Reference (Units ) Status WBC, Total 03/16/2023 10:22:57 5.94 4.00-10.8 0 (K/uL) Final RBC 03/16/2023 10:22:57 3.43 4.50-5.25 (M/uL) Final Hemoglobin 03/16/2023 10:22:57 12.4 Below low normal 14 .0-16.8 (g/dL) Final HCT 03/16/2023 10:22:57 36.8 Below low normal 40. 0-48.4 (%) Final MCV 03/16/2023 10:22:57 107.3 82.0-99.5 (fL) Final MCH 03/16/2023 10:22:57 36.2 27.0-34.0 (pg) Final MCHC 03/16/2023 10:22:57 33.7 32.0-36.0 (g/dL) Final RDW 03/16/2023 10:22:57 15.2 11.5-15.5 (%) Final Platelets 03/16/2023 10:22:57 201 140-400 (K /uL) Final MPV 03/16/2023 10:22:57 9.2 6.6-11.1 ( fL) Final Performing Location [facility] [address] [place] [address]
--- OUTSIDE RECORDS SUMMARY | 2023-05-29 14:16 | External Medical Summary | Summary of Care ---
Author Name Unknown Organization [facility] Address [address] [place] [address] Phone [phone] Care Team Providers Care Supply Chain Systems Manager Name Role Phone Escobar Iglesias DO Primary Care Provider Reason for Visit * Reason Comments Outpatient Testing Encounter Details Date Type Department Care Team (Late st Contact Info) Description 03/23/2023 10:30 AM EST Laboratory Laboratory, [facility] [address] [place] [phone] [facility] [address] [place] [address] 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); Malignant [...] HCl 0.1 % Nasal Solution Administer 1 [place] into nostril in the morning and 1 [place] before bedtime. 0 Active Escitalopram Oxalate 10 [...] the morning. 30 Tablet 3 03/23/2023 Active Hospital, Clinic, or Other Facility [...] Care Team (Late st Contact Info) Description 03/24/2023 1:15 PM EST Hem/Onc Treatment Hematology/Oncology Treatment, [place] [address] [place] [address] Alejandrina, Chair 10 Hem Onc [facility] [address] [place] [address] 03/31/2023 8:15 AM EST Office Visit Hematology/Oncology [facility] [place] [address] [place] [address] Jeff Robbins MD [address] [place] [address] 06/25/2023 2:40 PM EST Telemedicine Hepatology, [facility] [address] [place] [address] Andreea Goodman DO [address] [place] [address] Pending Results Name Type Priority Associated Diagnoses Date /Time CBC WITH WBC DIFFERENTIAL Lab STAT 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) 03/23/2023 10:23 AM EST COMPREHENSIVE METABOLIC PANEL Lab STAT 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) 03/23/2023 10:23 AM EST CBC Lab STAT 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) 03/23/2023 10:23 AM EST DIFFERENTIAL, AUTOMATED Lab STAT 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) 03/23/2023 10:23 AM EST Health Maintenance Due Date Last [...] this encounter Medical Devices Implanted Type Area Cryptographic Clerk Device Identifier Shelf Expiration Date Model / Serial / Lot Power Port 8fr Sngl Lumen Plas - [id number] Implanted:Qty : 1 on 10/22/2022 by James Baeza DO at OR [facility] Right: Chest CR BARD : PERIPHERAL VASCULAR [id number] 02/25/2024 [id number] / / [id number] documented as of this encounter Visit Diagnoses Diagnosis 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) 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) Malignant neoplasm of transverse colon documented in this encounter Advance Directives Documents on File Type Date Recorded Patient Life Insurance Salesperson Expl 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 Question Answer Comments Discussion of Advance Directives occurred with: Patient Care Teams Supply Chain Systems Manager Relationship Specialty Start Date End Date Escobar Iglesias DO [address] [facility] [place] [address] PCP - General Family Medicine 10/07/22 documented as of this encounter
--- OUTSIDE RECORDS SUMMARY | 2023-05-29 14:16 | External Medical Summary | Summary of Care ---
Author Name Unknown Organization [facility] Address [address] [place] [address] Phone [phone] Care Team Providers Care Assistant Brand Manager Name Role Phone Escobar Iglesias DO Primary Care Provider Encounter Details Date Type Department Care Team (Late st Contact Info) Description 03/23/2023 Orders Only [facility] [address] [place] [address] Jeff Robbins MD [address] [place] [address] Allergies Active Allergy Reactions Criticality Noted Date [...] HCl 0.1 % Nasal Solution Administer 1 [place] into nostril in the morning and 1 [place] before bedtime. 0 Active Escitalopram Oxalate 10 [...] mL infusion 4150 mg IV CONTINUOUS 03/23/2023 Active Fluorouracil (5-Fu) 4,425 mg in NSS 138 mL infusion 4425 mg IV CONTINUOUS 03/02/2023 03/23/2023 Discontinued documented as of this encounter (statuses [...] PM EST Hem/Onc Treatment Hematology/Oncolog y Treatment, [place] [address] [place] [address] Alejandrina, Chair 10 Hem Onc [place] [address] [place] [address] 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)*; Malignant neoplasm of transverse colon (HCC); Encounter for antineoplastic chemotherapy 03/31/2023 8:15 AM EST Office [facility] Alejandrina [place] [address] [place] [address] Jeff Robbins MD [address] [place] [address] 06/25/2023 2:40 PM EST Telemedicine Hepatology, [facility] [address] [place] [address] Andreea Goodman DO [address] [place] [address] Health Maintenance Due Date Last Done Comments [...] this encounter Medical Devices Implanted Type Area Legal Analyst Device Identifier Shelf Expiration Date Model / Serial / Lot Power Port 8fr Sngl Lumen Plas - [id number] Implanted:Qty : 1 on 10/22/2022 by James Baeza DO at OR [facility] Right: Chest CR BARD : PERIPHERAL VASCULAR [id number] 02/25/2024 [id number] / / [id number] documented as of this encounter Advance Directives Documents on File Type Date Recorded Patient Warehouse Traffic Supervisor Expl 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 Question Answer Comments Discussion of Advance Directives occurred with: Patient Care Teams Assistant Brand Manager Relationship Specialty Start Date End Date Escobar Iglesias DO [address] [facility] [place] [address] PCP - General Family Medicine 10/07/22 documented as of this encounter
--- OUTSIDE RECORDS SUMMARY | 2023-05-29 14:16 | External Medical Summary | Summary of Care ---
Author Name Unknown Organization [facility] Address [address] [place] [address] Phone [phone] Care Team Providers Care Marine Engineer Name Role Phone Escobar Iglesias DO Primary Care Provider Reason for Visit * Reason Onset Date Comments Appointment 03/16/2023 Encounter Details Date Type Department Care Team (Late st Contact Info) Description 03/16/2023 Telephone Hematology/Oncology Treatment, [place] [address] [facility] [place] [address] Jeff Robbins MD [address] [place] [address] Appointment Allergies Active Allergy Reactions Criticality Noted [...] HCl 0.1 % Nasal Solution Administer 1 [place] into nostril in the morning and 1 [place] before bedtime. 0 Active Escitalopram Oxalate 10 [...] Telephone Encounter - Charisse Fink RN - 03/16/2023 10:33 AM EST Patient is on the schedule for tomorrow for treatment. Pump disconnect will be due , officewill be closed. Scheduling: please call patient. Options are: - move treatment to Sunday 03/18 (preferred as patient is due for treatment this week), pump disconnect would then be Thursday. Labs from today would be ok to use - move treatment to next week on Thursday or Thursday, patient would need repeat labs the day priorat SP or GW Thanks! documented in this encounter Plan of Treatment Upcoming Encounters Date Type Department Care Team (Late st Contact Info) Description 03/18/2023 2:00 PM EST Telemedicine Palliative Medicine, [facility] [address] [facility] 5th [place] [address] Eli Mckeon CRNP [address] [place] [address] 03/23/2023 10:30 AM EST Laboratory Laboratory, [facility] [place] [phone] Betito Huerta [facility] [address] [facility] [place] [address] 03/24/2023 1:15 PM EST Hem/Onc Treatment [facility]ology[facility], [place] [address] [facility] [address] Alejandrina, Chair 10 Hem On[address] [place] [address] 03/31/2023 8:15 AM EST Office Visit Hematology/Oncology [facility] [address] [place] [address] Jeff Robbins MD [address] [facility] [place] [address] 06/25/2023 2:40 PM EST Telemedicine Hepatology, [facility] [address] [place] [address] Andreea Goodman DO 132 [facility] [place] [address] Health Maintenance Due Date Last Done Comments [...] this encounter Medical Devices Implanted Type Area Director Of Market Intelligence Device Identifier Shelf Expiration Date Model / Serial / Lot Power Port 8fr Sngl Lumen Plas - [id number] Implanted:Qty : 1 on 10/22/2022 by James Baeza DO at OR [facility] Right: Chest CR BARD : PERIPHERAL VASCULAR [id number] 02/25/2024 [id number] / / [id number] documented as of this encounter Advance Directives Documents on File Type Date Recorded Patient Network Systems Operator Expl 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 Question Answer Comments Discussion of Advance Directives occurred with: Patient Care Teams Marine Engineer Relationship Specialty Start Date End Date Escobar Iglesias DO [address] [place] [address] PCP - General Family Medicine 10/07/22 documented as of this encounter
--- OUTSIDE RECORDS SUMMARY | 2023-05-29 14:16 | External Medical Summary | Summary of Care ---
Author Name Unknown Organization [facility] Address [address] [place] [place] [address] Phone [phone] Care Team Providers Care Lathe Set Up Person Name Role Phone Escobar Iglesias DO Primary Care Provider Reason for Visit * Reason Onset Date Comments Test Results 01/14/2023 Encounter Details Date Type Department Care Team (Late st Contact Info) Description 01/14/2023 Telephone Hepatology, [facility] [address] [place] [address] Andreea Goodman DO [address] [place] [address] Test Results Allergies Active Allergy Reactions Criticality Noted Date Comments Prochlorperazine Edema face/lips/tongue High 023 BODY DYSFUNCTION documented as of this encounter (statuses as of 03/20/2023) Medications Medication Sig Dispensed Refills Start Date [...] HCl 0.1 % Nasal Solution Administer 1 [place] into nostril in the morning and 1 [place] before bedtime. 0 Active Escitalopram Oxalate 10 [...] 3 Discontinue d(Medicatio n List Clean Up) oxyCODONE HCl 5 MG Oral Tablet (Oxy [...] as of this encounter (statuses as of 03/20/2023) Active Problems Problem Noted Date Diagnosed Date [...] as of this encounter (statuses as of 03/20/2023) Social History Tobacco Use Types Packs/Day Years [...] encounter Miscellaneous Notes * Telephone Encounter - Jessica Hardin RN [...] I can do this but they should flakito it on their calendar as well. Aware [...] A so recommend vaccination series through PCP. Anderea Goodman DO documented in this encounter Plan of Treatment Upcoming Encounters Date Type Department Care Team (Late st Contact Info) Description 03/23/2023 10:30 AM EST Laboratory Laboratory, [facility] [address] [facility] [place] [id number] HuertaBetito bunn [facility] [place] [address] 03/24/2023 1:15 PM EST Hem/Onc Treatment Hematology/Oncology Treatment, [place] [address] [place] [address] Alejandrina, Chair 10 Hem Onc [facility] [address] [place] [address] 03/31/2023 8:15 AM EST Office Visit Hematology/Oncology [facility] [place] [address] [place] [address] Jeff Robbins MD [address] [place] [address] 06/25/2023 2:40 PM EST Telemedicine Hepatology, [facility] [address] [facility] [place] [address] Andreea Goodman DO [address] [facility] [place] [address] Health Maintenance Due Date Last Done Comments [...] this encounter Medical Devices Implanted Type Area Chaser Apprentice Device Identifier Shelf Expiration Date Model / Serial / Lot Power Port 8fr Sngl Lumen Plas - [id number] Implanted:Qty : 1 on 10/22/2022 by Flakito Baeza DO at OR [facility] Right: Chest CR BARD : PERIPHERAL VASCULAR [id number] 02/25/2024 [id number] / / [id number] documented as of this encounter Advance Directives Documents on File Type Date Recorded Patient Bus Cleaner Expl 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 Question Answer Comments Discussion of Advance Directives occurred with: Patient Care Teams Lathe Set Up Person Relationship Specialty Start Date End Date Escobar Iglesias DO [address] [facility] [place] [address] PCP - General Family Medicine 10/07/22 documented as of this encounter
--- OUTSIDE RECORDS SUMMARY | 2023-05-29 14:16 | External Medical Summary | Summary of Care ---
Author Name Unknown Organization [facility] Address [address] [place] [address] Phone [phone] Care Team Providers Care Corn Breeder Name Role Phone Escobar Iglesias DO Primary Care Provider Encounter Details Date Type Department Care Team (Late st Contact Info) Description 03/23/2023 Orders Only Hematology/Oncology [facility] Alejandrina [place] [address] [facility] [place] [address] Jeff Robbins MD [address] [facility] [address] Malignant neoplasm of transverse colon (HCC)*; 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); Encounter for antineoplastic chemotherapy Allergies Active [...] HCl 0.1 % Nasal Solution Administer 1 [place] into nostril in the morning and 1 [place] before bedtime. 0 Active Escitalopram Oxalate 10 [...] PM EST Hem/Onc Treatment Hematology/Oncolog y Treatment, [place] [address] [place] [address] Alejandrina, Chair 10 Hem Onc [address] [place] [address] 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)*; Malignant neoplasm of transverse colon (HCC); Encounter for antineoplastic chemotherapy 03/31/2023 8:15 AM EST Office Visit Hematology/Oncolog y [facility] Alejandrina [place] [address] [place] [address] Jeff Robbins MD [address] [place] [address] 06/25/2023 2:40 PM EST Telemedicine Hepatology, [facility] [address] [place] [address] Andreea Goodman DO [address] [place] [address] Health Maintenance Due Date Last Done Comments [...] this encounter Medical Devices Implanted Type Area Account Management Specialist Device Identifier Shelf Expiration Date Model / Serial / Lot Power Port 8fr Sngl Lumen Plas - [id number] Implanted:Qty : 1 on 10/22/2022 by James Baeza DO at [facility] Right: Chest CR BARD : PERIPHERAL VASCULAR [id number] 02/25/2024 [id number] / / [id number] documented as of this encounter Visit Diagnoses Diagnosis Malignant neoplasm of transverse colon (HCC)- Primary Malignant 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) Secondary malignant neoplasm of liver Encounter for antineoplastic chemotherapy 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)- Primary 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) Malignant neoplasm of transverse colon Encounter for antineoplastic chemotherapy documented in this encounter Advance Directives Documents on File Type Date Recorded Patient Hog Stomach Preparer Expl 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 Question Answer Comments Discussion of Advance Directives occurred with: Patient Care Teams Corn Breeder Relationship Specialty Start Date End Date Escobar Iglesias DO [address] [place] [address] PCP - General Family Medicine 10/07/22 documented as of this encounter
--- OUTSIDE RECORDS SUMMARY | 2023-05-29 14:16 | External Medical Summary | Summary of Care ---
Author Name Unknown Organization [facility] Address [address] [place] [address] Phone [phone] Care Team Providers Care Production Support Manager Name Role Phone Escobar Iglesias DO Primary Care Provider Reason for Visit * Reason Comments Follow Up Encounter Details Date Type Department Care Team (Late st Contact Info) Description 03/18/2023 2:00 PM EST Telemedicine Palliative Medicine, [facility] [address] [facility] 5th [place] [address] Eli Mckeon CRNP [address] [place], [place] [id number] Malignant neoplasm of transverse colon (HCC)*; Palliative care encounter Allergies Active Allergy Reactions Criticality Noted Date Comments Prochlorperazine Edema face/lips/tongue High 023 BODY DYSFUNCTION documented as of this encounter (statuses as of 03/18/2023) Medications Medication Sig Dispensed Refills Start Date [...] HCl 0.1 % Nasal Solution Administer 1 [place] into nostril in the morning and 1 [place] before bedtime. 0 Active Escitalopram Oxalate 10 [...] as of this encounter (statuses as of 03/18/2023) Active Problems Problem Noted Date Diagnosed Date Dehydration 01/05/2023 Hypokalemia 01/05/2023 Metastasis to liver 10/07/2022 Malignant neoplasm of transverse colon Encounter for antineoplastic chemotherapy 2022 JOY (generalized anxiety disorder) 09/26/2022 Severe protein-energy malnutrition 09/25/2022 Abdominal mass, right upper quadrant 09/24/2022 Colonic mass 09/24/2022 Elevated LFTs 09/24/2022 Iron deficiency anemia 09/24/2022 ANTHONY (acute kidney injury) 09/24/2022 documented as of this encounter (statuses as of 03/18/2023) Social History Tobacco Use Types Packs/Day Years [...] as of this encounter Progress Notes * Eli Mckeon CRNP - 03/18/2023 2:00 PM EST Palliative Medicine Outpatient Progress Note IN HOME TELEMEDICINE VISIT [facility] 5th [address] [place] [address] [facility] [address] Name: Escobar Bourne Tez Date: 03/18/2023 I was in a hospital or clinic location. After connecting through [employer], patient was verified with two unique identifiers. Patient (or authorized legal underwriting service representative) was then informed that this was a Telemedicine visit and being conducted confidentially over secure lines. Methods to assure confidentiality were taken. Patient acknowledged consent and understanding of privacy and security of the Telemedicine visit. The patient agreed to participate. 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 Interval history: had paracentesis 02/09 with removal of 4L fluid. Currently on 5FU, had to stop oxaliplatin 2/2 worsening neuropathy. Main concern today is fatigue, laying down most of the time, notnecessarily sleeping. Tries to walk around some. Lives with . Eyes are watering constantly for about the last 3 months. Also has constantly runny nose. No cough, no sneezing, no SOB. Palliative ROS: Pain: mild pain in back from sitting. It just started in the last couple days. Nausea/Vomiting no Constipation: a little bit - takes stool softener which works Confusion: no Sleep: sleeping more Activities: decreased activity Appetite: okay, weight is down. Recently had 4L fluid taken Mood: ok Other: no ROS: See HPI. All others negative. No past medical history on file. Social History Socioeconomic History Marital status: Spouse [...] on file Housing Stability: Not on file family history is not on file. Examination: No vital signs as visit completed via telemedicine. Constitutional: no acute distress, chronically ill somewhat frail Chest: normal respiratory effort MSK: no deformities Data Review: External notes reviewed: - Dr. 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 Right lower extremity DVT , on Eliquis. Pseudo cirrhosis of liver. I reviewed his blood workup done yesterday, overall stable blood workup, mild anemia noted, stable kidney liver function, persistent low-level albumin noted contributing to the ascites in his case. Cytology of the peritoneal fluid negative for malignant cells. Currently he is on Eliquis for right lower extremity DVT. Leg edema has improved. No new bleeding complications Will continue 5-Fluorouracil and leucovorin as we planned. He will continue Aldactone and the hydrochlorothiazide. Will continue Eliquis 5 mg twice a day Check Hepatitis B surface antigen every 3 months while on chemotherapy - next due in March. Per hepatology if HBsAg becomes positive, start entecavir 0.5 mg once daily and refer patient back to hepatology. CEA every 4 to 6 weekly. Latest CEA level is around 38.9 as of 01/26/2023. Will see him in about 6 weeks. " Lab / Imaging Results: Latest Reference Range & Units 03/16/23 10:22 BUN 6 - 20 mg/dL 28 (H) Creatinine 0.6 - 1.2 mg/dL 1.1 (H): Data is abnormally high Latest Reference Range & Units 03/16/23 10:22 WBC 4.00 - 10.80 K/uL 5.94 HGB 14.0 - 16.8 g/dL 12.4 (L) HCT 40.0 - 48.4 % 36.8 (L) (L): Data is abnormally low Latest Reference Range & Units 03/02/23 10:21 Hepatitis B Surface Antigen Negative Negative Latest Reference Range & Units 03/16/23 10:22 Albumin 3.8 - 5.0 g/dL 3.1 (L) AST 10 - 50 U/L 41 ALT 10 - 50 U/L 11 Alkaline Phosphatase 35 - 130 U/L 299 (H) Bilirubin, Total <=1.2 mg/dL 0.6 (L): Data is abnormally low (H): Data is abnormally high Bilateral lower extremity Doppler evaluation:(02/06/2023) "-right lower extremity --> extensive DVT (thrombosis is seen in the common femoral vein. Occlusive deep venous thrombosis is seen throughout the superficial femoral vein. Nonocclusive thrombus is seen within the popliteal vein. There is likely nonocclusive superficial thrombus within the great saphenous vein near the junction with the common femoral vein. The visualized calf veins are appeared patent.) -left lower extremity, --> no DVT." History obtained from: patient, was in background Discussion with other team members: oncologist, pharmacist and RN at hem/onc ASSESSMENT: Escobar Reagan is a 77 year old male seen in follow-up for goals of care and pain and symptom management. Metastatic colon adenocarcinoma Watery eyes Back pain PLAN: Has significant fatigue but this is not changed in the last few months. Messaged oncologist and pharmacist about whether or not patient can start antihistamine for his watery eyes and running nose (in the setting of 5FU). Back pain is mild and manageable at this time. He thinks it's from lying around. Follow up in person in [facility] in April. Will wait to see when hem/onc f/u will be and try to coordinate if possible. I spent a total of 30-39 minutes (exact time 34 mins) on the date of service in preparation, delivery, and documentation of the care provided to Escobar Reagan excluding any time spent in the performance of separately billed services. SHELTON Dial Palliative Medicine Nurse Practitioner [email or web address] 03/18/23 documented in this encounter Plan of Treatment Upcoming Encounters Date Type Department Care Team (Late st Contact Info) Description 03/23/2023 10:30 AM EST Laboratory Laboratory, [facility] [address] [facility] [place] [phone] Betito [place] [address] [facility] [place] [address] 03/24/2023 1:15 PM EST Hem/Onc Treatment Hematology/Oncology Treatment, [place] [address] [place] [address] Alejandrina, Chair 10 Hem Onc [facility] [address] [place] [address] 03/31/2023 8:15 AM EST Office Visit Hematology/Oncology [facility] [place] [address] [place] [address] Jeff Robbins MD [address] [place] [address] 06/25/2023 2:40 PM EST Telemedicine [facility]at[facility], [facility] [place] [address] Andreea Goodman DO [address] [place] [address] Health Maintenance Due Date Last Done Comments [...] encounter Medical Devices Implanted Type Area Manager Employee Relations Device Identifier Shelf Expiration Date Model / Serial / Lot Power Port 8fr Sngl Lumen Plas - [id number] Implanted:Qty : 1 on 10/22/2022 by James Baeza DO at OR [facility] Right: Chest CR BARD : PERIPHERAL VASCULAR [id number] 02/25/2024 [id number] / / [id number] documented as of this encounter Visit Diagnoses Diagnosis Malignant neoplasm of transverse colon (HCC)- Primary Malignant neoplasm of transverse colon Palliative care encounter Encounter for palliative care documented in this encounter Advance Directives Documents on File Type Date Recorded Patient Procurement Manager Expl 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 Question Answer Comments Discussion of Advance Directives occurred with: Patient Care Teams Production Support Manager Relationship Specialty Start Date End Date Escobar Iglesias DO [address] [facility] [place] [address] PCP - General Family Medicine 10/07/22 documented as of this encounter
--- OUTSIDE RECORDS SUMMARY | 2023-05-29 14:16 | External Medical Summary ---
Author Name Unknown Address Unknown Organization K0[facility]:LABORATORY [facility] [place] [address] [facility] [address] Laboratory Report Ordering Provider Test Date Status RASHAAD BARAHONA 03/23/2023 10:23:02 Final Observation Date Value Abnormality Reference (Units ) Status SYNC LEUKOCYTES IN BLOOD BY AUTOMATED COUNT 03/23/2023 10:23:02 5.84 4.00-10.80 (K/uL) Final Neutrophils/100 leukocytes in Blood by Manual count 03/23/2023 10:23:02 59.0 40.0-75.0 (%) Final Lymphocytes/100 leukocytes in Blood by Manual count 03/23/2023 10:23:02 20.0 18.0-42.0 (%) Final Monocytes/100 leukocytes in Blood by Manual count 03/23/2023 10:23:02 15.0 Above high normal 1.0-11.0 (%) Final Eosinophils/100 leukocytes in Blood by Manual count 03/23/2023 10:23:02 4.0 0.0-6.0 (%) Final Metamyelocytes/100 leukocytes in Blood by Manual count 03/23/2023 10:23:02 2.0 Above high normal <=0.0 (%) Final Neutrophils [#/volume] in Blood by Manual count 03/23/2023 10:23:02 3.45 1.80-7.70 (K/uL) Final Lymphocytes [#/volume] in Blood by Manual count 03/23/2023 10:23:02 1.17 1.00-4.80 (K/uL) Final Monocytes [#/volume] in Blood by Manual count 03/23/2023 10:23:02 0.88 0.00-1.10 (K/uL) Final Eosinophils [#/volume] in Blood by Manual count 03/23/2023 10:23:02 0.23 0.00-0.70 (K/uL) Final Metamyelocytes [#/volume] in Blood by Manual count 03/23/2023 10:23:02 0.12 Above high normal <=0.00 (K/uL) Final Nucleated erythrocytes/100 leukocytes [Ratio] in Blood by Automated count 03/23/2023 10:23:02 Final Schistocytes 03/23/2023 10:23:02 Few Abnormal None Seen Final Variant lymphocytes [Presence] in Blood by Light microscopy 03/23/2023 10:23:02 Present Abnormal None Seen Final Performing Location LABORATORY [place] [address] [facility] [address]
--- OUTSIDE RECORDS SUMMARY | 2023-05-29 14:16 | External Medical Summary ---
Author Name Unknown Address Unknown Organization [facility] [facility] [address] [place] [address] Laboratory Report Ordering Provider Test Date Status RASHAAD BARAHONA 03/23/2023 10:23:02 Final Observation Date Value Abnormality Reference (Units ) Status WBC, Total 03/23/2023 10:23:02 5.84 4.00-10.8 0 (K/uL) Final RBC 03/23/2023 10:23:02 3.30 4.50-5.25 (M/uL) Final Hemoglobin 03/23/2023 10:23:02 12.4 Below low normal 14 .0-16.8 (g/dL) Final HCT 03/23/2023 10:23:02 35.1 Below low normal 40. 0-48.4 (%) Final MCV 03/23/2023 10:23:02 106.4 82.0-99.5 (fL) Final MCH 03/23/2023 10:23:02 37.6 27.0-34.0 (pg) Final MCHC 03/23/2023 10:23:02 35.3 32.0-36.0 (g/dL) Final RDW 03/23/2023 10:23:02 15.6 11.5-15.5 (%) Final Platelets 03/23/2023 10:23:02 188 140-400 (K /uL) Final MPV 03/23/2023 10:23:02 9.1 6.6-11.1 ( fL) Final Performing Location LABORATORY [facility] [place] [address] [place] [address]
--- OUTSIDE RECORDS SUMMARY | 2023-05-29 14:16 | External Medical Summary | Summary of Care ---
Author Name Unknown Organization [facility] Address [address] [place] [address] Phone [phone] Care Team Providers Care Director Of Product Management Name Role Phone Escobar Iglesias DO Primary Care Provider Reason for Visit * Reason Comments Chemotherapy C11/D1 - leucovorin/ 5FU 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) Encounter for antineoplastic chemotherapy Procedures LA LEUCOVORIN CALCIUM INJECTION LA PALONOSETRON HCL LA FLUOROURACIL INJECTION LA OXALIPLATIN Jeff Robbins MD [address] [place] [address] Anc Hem/Onc Scenemanjit [facility] DEPT CLOSED - 03/10/[address] [place] [address] Referral ID Status Reason Start Date Expiration Date V isits Requested Visits Authorized [id number] Authorized 01/26/2023 04/25/[phone] Encounter Details Date Type Department Care Team (Latest Contact Info) Description 03/24/2023 1:15 PM EST Hem/Onc Treatment Hematology/Oncolog y Treatment, [place] [address] [place] [address] Alejandrina, Chair 10 Hem Onc Scenery [address] [place] [address] 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)*; Malignant neoplasm of transverse colon (HCC); Encounter for antineoplastic chemotherapy Allergies Active Allergy Reactions Criticality Noted Date Comments Prochlorperazine Edema face/lips/tongue High 023 BODY DYSFUNCTION documented as of this encounter (statuses as of 03/24/2023) Medications Medication Sig Dispensed Refills Start Date [...] HCl 0.1 % Nasal Solution Administer 1 [place] into nostril in the morning and 1 [place] before bedtime. 0 Active Escitalopram Oxalate 10 [...] mouth at bedtime. 60 Tablet 0 01/16/2023 Discontinue d(Refill) Hospital, Clinic, or Other Facility Administered Medication Ordered Dose Route Frequency Start Date End Date Status Fluorouracil (5-Fu) 4,425 mg in NSS 138 mL infusion 4425 mg IV CONTINUOUS 03/02/2023 03/23/2023 Discontinued documented as of this encounter (statuses as of 03/24/2023) Active Problems Problem Noted Date Diagnosed Date Dehydration 01/05/2023 Hypokalemia 01/05/2023 Metastasis to liver 10/07/2022 Malignant neoplasm of transverse colon Encounter for antineoplastic chemotherapy 2022 JOY (generalized anxiety disorder) 09/26/2022 Severe protein-energy malnutrition 09/25/2022 Abdominal mass, right upper quadrant 09/24/2022 Colonic mass 09/24/2022 Elevated LFTs 09/24/2022 Iron deficiency anemia 09/24/2022 ANTHONY (acute kidney injury) 09/24/2022 documented as of this encounter (statuses as of 03/24/2023) Social History Tobacco Use Types Packs/Day Years [...] Sign Reading Time Taken Comments Blood Pressure 112/69 03/24/2023 1:45 PM EST Pulse 73 03/24/2023 1:45 PM EST Temperature 37 C (98.6 F) 03/24/2023 1:45 PM EST Respiratory Rate 16 03/24/2023 1:45 PM EST Oxygen Saturation 94% 03/24/2023 1:45 PM EST Inhaled Oxygen Concentration - - Weight 61.2 kg (135 lb) 03/24/2023 1:45 PM EST Height - - Body Mass Index 21.8 10/22/2022 12:03 PM EDT documented in this [...] as of this encounter Nursing Notes * Kasey Barkley, RN - 03/24/2023 5:31 PM EST Chair 8. Port accessed, patient feeling well overall, just fatigued. Chemo agents Leucovorin, 5FU Appetite fair Nausea/Vomiting no Diarrhea no Constipation no Mucositis no Fatigue yes, ongoing but overall still okay Bleeding no Infection no Rash no Numbness tingling no Pain no Radiation no ABN Labs WNL for tx Alt in Tx: N/A Return in 2 days Safety and Risk for Injury Patient will remain free from injury. Ensure appropriate safety devices are available. Provide and maintain safe environment. Goals: Patient will remain free from injury. Possible barriers to meeting goals: ambulating with IV pole Stability of the patient: Moderately stable - low risk of patient condition declining or worsening Summary regarding today's goals: Met: pt remained free of harm today Functional status at today's visit: Restricted in [...] adverse side effects during treatment. Patient tolerated treatment well without any acute issues or problems. Patient left facility in stable condition and denied any further needs. * Charisse Fink RN - 03/23/2023 12:07 PM EST AST 64, alk phos 403. Per Dr Robbins, ok to treat tomorrow as scheduled. documented in this encounter Plan of Treatment Upcoming Encounters Date Type Department Care Team (Late st Contact Info) Description 03/26/2023 1:00 PM EST Immunization/Injection Hematology/Oncology Treatment, [place] 200 [facility] [place] [address] Nurse, Med 200 [facility] [place] [address] 04/01/2023 2:15 PM EST Office Visit Hematology/Oncology [facility] Alejandrina [place] [address] [place] [address] Jeff Robbins MD 200 [facility] [place] [address] 04/06/2023 10:30 AM EST Laboratory Laboratory [facility] [address] [place] [address] Betito [place] Scenery [address] [place], [place] [address] 04/07/2023 2:30 PM EST Hem/Onc Treatment Hematology/Oncology Treatment, [place] [address] [place], [place] [address] Alejandrina, Chair 10 Hem Onc Scenery [address] [place], [place] [address] 06/25/2023 2:40 PM EST Telemedicine Hepatology, [facility] [address] [place] [address] Andreea Goodman DO [address] [place] [address] Health Maintenance Due Date Last Done Comments [...] this encounter Medical Devices Implanted Type Area Processor Grain Device Identifier Shelf Expiration Date Model / Serial / Lot Power Port 8fr Sngl Lumen Plas - [id number] Implanted:Qty : 1 on 10/22/2022 by James Baeza DO at OR [facility] Right: Chest CR BARD : PERIPHERAL VASCULAR [id number] 02/25/2024 [id number] / / [id number] documented as of this encounter Visit Diagnoses [...] ONCE PRN Other, Hypersensitivity Reaction, Starting on Thu03/24/23 at 1342, Until Thu03/25/23 at 1341, For 24 hours EPINEPHrine 1 MG/ML inj 0.3 mg 0.3 mg, Intramuscular, ONCE PRN Other, Hypersensitivity Reaction or Anaphylaxis, Starting on Thu03/24/23 at 1342, Until Thu03/25/23 at 1341, For 24 hours hEParin 100 UNIT/ML Lock Flush inj 500 Units 500 Units (5 mL), IV Lock, PRN Other, IV Flush, Starting on Thu03/24/23 at 1342, Until Thu03/25/23 at 1341, For 24 hours, Do not flush if lock, PICC, or central line not in place; IV infusing or unable to flush. Hydrocortisone Sod Suc (PF) (Solu-Cortef) inj 100 mg 100 mg, IV Push, ONCE PRN Other, Hypersensitivity Reaction, Starting on Thu03/24/23 at 1342, Until Thu03/25/23 at 1341, For 24 hours oxygen GAS Inhalation, OXYGEN, First dose on Thu03/24/23 at 1600, Until Discontinued, Device/Managed by: Low [...] Push, PRN Other, IV Flush, Starting on Thu03/24/23 at 1342, Until Thu03/25/23 at 1341, For 24 hours, Do not flush if lock, PICC, or central line not in place; IV infusing or unable to flush. Given 03/24/2023 2:50 PM EST 10 mL Inactive Administered Medications - up to 3 most recent administrations Medication Order MAR Action Action Date Dose Rate Site Fluorouracil (5-Fu) 4,150 mg for Home Infusion 4,150 mg, Intravenous, Administer over 46 Hours, Home Infusion Pharmacy to specify base solution and volume., ONCE, 1 dose, On Thu03/24/23 at 1315 Start Infusion 03/24/2023 2:55 PM EST 4,150 mg Fluorouracil (5-Fu) inj 700 mg 700 mg (rounded from 692 mg = 400 mg/m2 1.73 m2 Treatment Plan BSA from Recorded weight), IV Push, ONCE, 1 dose, On Thu03/24/23 at 1415 Given 03/24/2023 2:52 PM EST 700 mg leucovorin calcium 700 mg in D5W 250 mL INFUSION 700 mg (rounded from 692 mg = 400 mg/m2 1.73 m2 Treatment Plan BSA from Recorded weight), IV Piggyback, ONCE, 1 dose, On Thu03/24/23 at 1415, Administer over 30 Minutes, Before 5-FU Start Infusion 03/24/2023 1:59 PM EST 700 mg 500 mL/hr NSS infusion FOR HYDRATION Intravenous, at 50 mL/hr Administer over 10 Hours, ONCE, 1 dose, On Thu03/24/23 at 1415 Start Infusion 03/24/2023 1:50 PM EST 500 mL 50 mL/hr ondansetron (Zofran) tab 8 mg 8 mg, Oral, ONCE, On Thu03/24/23 at 1415, For 1 dose Given 03/24/2023 1:59 PM EST 8 mg documented in this encounter Advance Directives Documents on File Type Date Recorded Patient Photo Specialist Expl 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 Question Answer Comments Discussion of Advance Directives occurred with: Patient Care Teams Director Of Product Management Relationship Specialty Start Date End Date Escobar Iglesias DO [address] [place] [address] PCP - General Family Medicine 10/07/22 documented as of this encounter
--- OUTSIDE RECORDS SUMMARY | 2023-05-29 14:16 | External Medical Summary | Summary of Care ---
Author Name Unknown Organization [facility] Address [address] [place] [address] Phone [phone] Care Team Providers Care Auriculotherapist Name Role Phone Escobar Iglesias DO Primary Care Provider Reason for Visit * Reason Onset Date Comments Appointment 03/16/2023 Encounter Details Date Type Department Care Team (Late st Contact Info) Description 03/16/2023 Telephone Hematology/Oncology Treatment, [place] [address] [place] [address] Jeff Robbins MD 200 [place] [address] Appointment Allergies Active Allergy Reactions Criticality Noted [...] HCl 0.1 % Nasal Solution Administer 1 [place] into nostril in the morning and 1 [place] before bedtime. 0 Active Escitalopram Oxalate 10 [...] Telephone Encounter - Marcia Muhammad OSA - 03/16/2023 10:51 AM EST Called and spoke to patients and she understood and rescheduled appts to 03/23 and 03/24. * Telephone Encounter - Charisse Fink RN [...] 03/18/2023 2:00 PM EST Telemedicine Palliative Medicine, [facility] 400 [facility] 5th [place] [address] Eli Mckeon CRNP [address] [place] [address] 03/23/2023 10:30 AM EST Laboratory Laboratory, Mike Huerta [place] [address] [facility] [place] [id number] Betito Huerta [facility] [address] 03/24/2023 1:15 PM EST Hem/Onc Treatment Hematology/Oncology Treatment, [place] [address] [facility] [place] [address] Alejandrina, Chair [address] Hem [address] [place] [address] 03/31/2023 8:15 AM EST Office Visit Hematology/Oncology [facility] [place] [address] [facility] [place] [address] Jeff Robbins MD 200 [facility] [place] [address] 06/25/2023 2:40 PM EST Telemedicine Hepatology, [facility] [address] [place] [address] Andreea Goodman DO [address] [place] [address] Health Maintenance Due Date Last Done Comments [...] this encounter Medical Devices Implanted Type Area System Development Manager Device Identifier Shelf Expiration Date Model / Serial / Lot Power Port 8fr Sngl Lumen Plas - [id number] Implanted:Qty : 1 on 10/22/2022 by James Baeza DO at OR [facility] Right: Chest CR BARD : PERIPHERAL VASCULAR [id number] 02/25/2024 [id number] / / [id number] documented as of this encounter Advance Directives Documents on File Type Date Recorded Patient Supervisor Shuttle Fitting Expl 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 Question Answer Comments Discussion of Advance Directives occurred with: Patient Care Teams Auriculotherapist Relationship Specialty Start Date End Date Escobar Iglesias DO [address] [place] [address] [place] [address] PCP - General Family Medicine 10/07/22 documented as of this encounter
--- OUTSIDE RECORDS SUMMARY | 2023-05-29 14:16 | External Medical Summary | Summary of Care ---
Author Name Unknown Organization [facility] Address [address] [place] [address] Phone [phone] Care Team Providers Care Hospice Music Therapy Name Role Phone Escobar Iglesias DO Primary Care Provider Reason for Visit * Reason Comments Follow Up Encounter Details Date Type Department Care Team (Late st Contact Info) Description 03/18/2023 2:00 PM EST Telemedicine Palliative Medicine, [facility] 400 [facility] 5th [place] [address] Katelyn Mckeon CRNP 400 [place], [place] [id number] Malignant neoplasm of transverse colon (HCC)*; Palliative [...] HCl 0.1 % Nasal Solution Administer 1 [place] into nostril in the morning and 1 [place] before bedtime. 0 Active Escitalopram Oxalate 10 [...] as of this encounter Progress Notes * Katelyn Mckeon CRNP - 03/18/2023 2:00 PM EST Palliative Medicine Outpatient Progress Note IN HOME TELEMEDICINE VISIT [facility] 5th Floor [address] [place] [address] Name: Escobar Reagan Date: 03/18/2023 I was in a hospital or clinic location. After connecting through televideo, patient was verified with two unique identifiers. Patient (or authorized legal route sales representative) was then informed that this was a Telemedicine visit and being conducted confidentially over secure lines. Methods to assure confidentiality were taken. Patient acknowledged consent and understanding of privacy and security of the Telemedicine visit. The patient agreed to participate. HPI: Escobar Reagan is a 77 year [...] lying around. Follow up in person in [facility] in April. Will wait to see when hem/onc f/u will be and try to coordinate if possible. I spent a total of 30-39 minutes (exact time 34 mins) on the date of service in preparation, delivery, and documentation of the care provided to Escobar Reagan excluding any time spent in the performance of separately billed services. SHELTON Dial Palliative Medicine Nurse Practitioner [email or web address] [email or web address] 03/18/23 documented in this encounter Miscellaneous Notes * Addendum Note - Katelyn Mckeon CRNP - 03/23/2023 9:06 AM ESTAddended by: KATELYN MCKEON on: 03/23/2023 09:06 AM Modules accepted: Orders documented in this encounter Plan of Treatment Upcoming Encounters Date Type Department Care Team (Late st Contact Info) Description 03/23/2023 10:30 AM EST Laboratory Laboratory, [facility] [address] [place] [address] [facility] [place] [address] 03/24/2023 1:15 PM EST Hem/Onc Treatment Hematology/Oncology [address] [address] Alejandrina, Chair 10 Hem Onc [address] [address] 03/31/2023 8:15 AM EST Office Visit Hematology/Oncology [address] [address] Jeff Robbins MD 200 [facility] [address] 06/25/2023 2:40 PM EST Telemedicine Hepatology, [facility] [address] [place] [address] Andreea Goodman DO [address] [place] [address] Health Maintenance Due Date Last Done Comments [...] this encounter Medical Devices Implanted Type Area Dictating Machine Typist Device Identifier Shelf Expiration Date Model / Serial / Lot Power Port 8fr Sngl Lumen Plas - [id number] Implanted:Qty : 1 on 10/22/2022 by James Baeza DO at OR [facility] Right: Chest CR BARD : PERIPHERAL VASCULAR [id number] 02/25/2024 [id number] / / [id number] documented as of this encounter Visit Diagnoses Diagnosis Malignant neoplasm of transverse colon (HCC)- Primary Malignant neoplasm of transverse colon Palliative care encounter Encounter for palliative care documented in this encounter Advance Directives Documents on File Type Date Recorded Patient Microsoft Bi Consultant Expl 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 Question Answer Comments Discussion of Advance Directives occurred with: Patient Care Teams Hospice Music Therapy Relationship Specialty Start Date End Date Escobar Iglesias DO [address] [facility] [place] [address] PCP - General Family Medicine 10/07/22 documented as of this encounter
--- OUTSIDE RECORDS SUMMARY | 2023-05-29 14:16 | External Medical Summary | Summary of Care ---
Author Name Unknown Organization [facility] Address [address] [place] [address] Phone [phone] Care Team Providers Care Spot Checker Name Role Phone Escobar Iglesias DO Primary Care Provider Reason for Visit * Reason Onset Date Comments Palliative Care Follow-up 03/23/2023 Encounter Details Date Type Department Care Team (Late st Contact Info) Description 03/23/2023 Telephone Palliative Medicine, [facility] 400 [facility] 5th Floor [place], [place] [id number] Eli Mckeon CRNP 400 [place] [address] Palliative Care Follow-up Allergies Active [...] HCl 0.1 % Nasal Solution Administer 1 [place] into nostril in the morning and 1 [place] before bedtime. 0 Active Escitalopram Oxalate 10 [...] Telephone Encounter - Jonna Roper LPN - 03/23/2023 9:09 AM EST Per Eli: Please call patient and let him know it's okay for him to take his vitamin and I will order him loratidine 10mg daily for his water eyes/allergy symptoms. Thank you! MyG sent to patient documented in this encounter Plan of Treatment Upcoming Encounters Date Type Department Care Team (Late st Contact Info) Description 03/23/2023 10:30 AM EST Laboratory Laboratory, [facility] 132 [facility] [place] [address] HuertaBetito bunn Robert 132 [facility] [place] [address] 03/24/2023 1:15 PM EST Hem/Onc Treatment Hematology/Oncology Treatment, [place] [facility] [address] Alejandrina, Chair 10 Hem Onc [address] [address] 03/31/2023 8:15 AM EST Office Visit Hematology/Oncology [facility] [address] [place] [address] Jeff Robbins MD 200 [facility] [address] 06/25/2023 2:40 PM EST Telemedicine Hepatology, [facility] 132 [facility] [place] [address] Andreea Goodman DO [address] [place] [address] Health Maintenance Due Date Last Done Comments [...] this encounter Medical Devices Implanted Type Area Sheet Metal Installer Device Identifier Shelf Expiration Date Model / Serial / Lot Power Port 8fr Sngl Lumen Plas - [id number] Implanted:Qty : 1 on 10/22/2022 by James Baeza DO at OR [facility] Right: Chest CR BARD : PERIPHERAL VASCULAR [id number] 02/25/2024 [id number] / / [id number] documented as of this encounter Advance Directives Documents on File Type Date Recorded Patient Documentation Coordinator Expl 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 Question Answer Comments Discussion of Advance Directives occurred with: Patient Care Teams Spot Checker Relationship Specialty Start Date End Date Escobar Iglesias DO [address] [place] [address] PCP - General Family Medicine 10/07/22 documented as of this encounter
--- OUTSIDE RECORDS SUMMARY | 2023-05-29 14:16 | External Medical Summary | Summary of Care ---
Author Name Unknown Organization [facility] Address [address] [place] [address] Phone [phone] Care Team Providers Care Controller Operations And Hr Manager Name Role Phone Escobar Iglesias DO Primary Care Provider Encounter Details Date Type Department Care Team (Late st Contact Info) Description 09/29/2022 Population Health External Data Unspecified Department Allergies Active Allergy Reactions Criticality Noted Date Comments Prochlorperazine Edema face/lips/tongue High 023 BODY DYSFUNCTION documented as of this encounter (statuses as of 03/09/2023) Medications Medication Sig Dispensed Refills Start Date [...] for Constipation. 30 Capsule 1 09/27/2022 Active documented as of this encounter (statuses as of 03/09/2023) Active Problems Problem Noted Date Diagnosed Date Dehydration 01/05/2023 Hypokalemia 01/05/2023 Metastasis to liver 10/07/2022 Malignant neoplasm of transverse colon Encounter for antineoplastic chemotherapy 2022 JOY (generalized anxiety disorder) 09/26/2022 Severe protein-energy malnutrition 09/25/2022 Abdominal mass, right upper quadrant 09/24/2022 Colonic mass 09/24/2022 Elevated LFTs 09/24/2022 Iron deficiency anemia 09/24/2022 ANTHONY (acute kidney injury) 09/24/2022 documented as of this encounter (statuses as of 03/09/2023) Social History Tobacco Use Types Packs/Day Years [...] Description 03/16/2023 10:30 AM EST Laboratory Laboratory, [facility] 132 [facility] [place] [address] [facility] 132 [facility] [place] [address] 03/17/2023 1:00 PM EST Hem/Onc Treatment Hematology/Oncology Treatment, [place] [address] [place] [address] Alejandrina, Chair 2 Hem Onc [address] [place] [address] 03/18/2023 2:00 PM EST Telemedicine Palliative Medicine, [facility] 400 [facility] 5th Floor [place] [address] Eli Mckeon CRNP 400 [facility] [place] [address] 03/31/2023 8:15 AM EST Office [facility] [place] 200 [facility] [place] [address] Jeff Robbins MD [address] [place] [address] 06/25/2023 2:40 PM EST Telemedicine Hepatology, [facility] [address] [place] [address] Andreea Goodman DO [address] [place] [address] Health Maintenance Due Date Last Done Comments [...] this encounter Medical Devices Implanted Type Area Pediatric Clinical Nurse Specialist Device Identifier Shelf Expiration Date Model / Serial / Lot Power Port 8fr Sngl Lumen Plas - [id number] Implanted:Qty : 1 on 10/22/2022 by James Baeza DO at OR [facility] Right: Chest CR BARD : PERIPHERAL VASCULAR [id number] 02/25/2024 [id number] / / [id number] documented as of this encounter Advance Directives Documents on File Type Date Recorded Patient Railroad Car Inspector Expl 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 Question Answer Comments Discussion of Advance Directives occurred with: Patient Care Teams Controller Operations And Hr Manager Relationship Specialty Start Date End Date Escobar Iglesias DO 1400 [facility] [place] [address] PCP - General Family Medicine 10/07/22 documented as of this encounter
--- OUTSIDE RECORDS SUMMARY | 2023-05-29 14:16 | External Medical Summary | Summary of Care ---
Author Name Unknown Organization [facility] Address [address] [place] [address] Phone [phone] Care Team Providers Care Video Tape Duplicator Name Role Phone Escobar Iglesias DO Primary Care Provider Reason for Visit * Reason Onset Date Comments Appointment 03/16/2023 Encounter Details Date Type Department Care Team (Late st Contact Info) Description 03/16/2023 Telephone Hematology/Oncology Treatment, [place] [address] [place] [address] Jeff Robbins MD 200 [place] [address] Appointment Allergies Active Allergy Reactions Criticality Noted [...] HCl 0.1 % Nasal Solution Administer 1 [place] into nostril in the morning and 1 [place] before bedtime. 0 Active Escitalopram Oxalate 10 [...] encounter Miscellaneous Notes * Addendum Note - Nomi Fink RN - 03/16/2023 10:54 AM ESTAddended by: NOMI FINK on: 03/16/2023 10:54 AM Modules accepted: Orders * Telephone Encounter - Marcia Muhammad OSA - 03/16/2023 10:51 AM EST Called and spoke to patients and she understood and rescheduled appts to 03/23 and 03/24. * Telephone Encounter - Nomi Fink RN - 03/16/2023 10:33 AM EST [...] 03/18/2023 2:00 PM EST Telemedicine Palliative Medicine, [facility] [address] [facility] 5th [place] [address] Eli Mckeon CRNP 400 [place] [address] 03/23/2023 10:30 AM EST Laboratory Laboratory, [facility] [phone] Betito Huerta [facility] [address] [facility] [address] 03/24/2023 1:15 PM EST Hem/Onc Treatment Hematology/Oncology Treatment, [place] [address] [place] [address] Alejandrina, Chair 10 Hem Onc Sc[place] [address] [place] [address] 03/31/2023 8:15 AM EST Office Visit Hematology/Oncology Tony Tinoco [place] 200 [facility] [place] [address] Jeff Robbins MD [address] [place] [address] 06/25/2023 2:40 PM EST Telemedicine Hepatology, [facility] [address] [place] [address] Andreea Goodman, [address] [place] [address] Health Maintenance Due Date Last Done Comments [...] this encounter Medical Devices Implanted Type Area Dry Wall Applicator Device Identifier Shelf Expiration Date Model / Serial / Lot Power Port 8fr Sngl Lumen Plas - [id number] Implanted:Qty : 1 on 10/22/2022 by James Baeza DO at OR [facility] Right: Chest CR BARD : PERIPHERAL VASCULAR [id number] 02/25/2024 [id number] / / [id number] documented as of this encounter Advance Directives Documents on File Type Date Recorded Patient Museum Exhibit Technician Expl 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 Question Answer Comments Discussion of Advance Directives occurred with: Patient Care Teams Video Tape Duplicator Relationship Specialty Start Date End Date Escobar Iglesias DO [address] [facility] [place] [address] PCP - General Family Medicine 10/07/22 documented as of this encounter
--- OUTSIDE RECORDS SUMMARY | 2023-05-29 14:17 | External Medical Summary | Summary of Care ---
Author Name Unknown Organization [facility] Address [address] [facility] [place] [address] Phone [phone] Care Team Providers Care Supervisor Rides Name Role Phone Escobar Iglesias DO Primary Care Provider Reason for Visit * Reason Onset Date Comments Test Results 01/14/2023 Encounter Details Date Type Department Care Team (Late st Contact Info) Description 01/14/2023 Telephone Hepatology, [facility] [address] [place] [address] Andreea Goodman DO [address] [place] [address] Test Results Allergies Active Allergy Reactions Criticality Noted Date Comments Prochlorperazine Edema face/lips/tongue High 023 BODY DYSFUNCTION documented as of this encounter (statuses as of 02/18/2023) Medications Medication Sig Dispensed Refills Start Date [...] HCl 0.1 % Nasal Solution Administer 1 [place] into nostril in the morning and 1 [place] before bedtime. 0 Active Escitalopram Oxalate 10 [...] as of this encounter (statuses as of 02/18/2023) Active Problems Problem Noted Date Diagnosed Date [...] as of this encounter (statuses as of 02/18/2023) Social History Tobacco Use Types Packs/Day Years [...] or making decisions? (5 years old or older No 09/24/2022 documented as of this encounter Miscellaneous Notes * Telephone Encounter - Geeta Huntley RN - 02/18/2023 3:06 PM EDT Noted CMP was done 02/16/23 that was ordered by Dr Rosendo addison for 1 month to have monthly LFT's [...] Care Team (Late st Contact Info) Description 02/19/2023 12:30 PM EDT Immunization/Injection Hematology/Oncology Treatment, [address] [place] [address] Nurse, Med [address] [place] [address] [place] [address] 03/02/2023 10:30 AM EST Laboratory Laboratory, Tobin Huerta [place] 132 [facility] [place] [id number] Betito Huerta 132 [facility] [place] [address] 03/03/2023 1:00 PM EST Hem/Onc Treatment Hematology/Oncology Treatment, [address] [place] [address] 03/18/2023 2:00 PM EST Telemedicine Palliative Medicine, [facility] 400 [facility] 5th Floor [place] [address] Eli Mckeon CRNP 400 [facility] [place] [address] 03/31/2023 8:15 AM EST Office Visit Hematology/Oncology [facility] [place] 200 [facility] [place] [address] Jeff Robbins MD [address] [place] [address] 06/25/2023 2:40 PM EST Telemedicine Hepatology, [facility] [address] [place] [address] Andreea Goodman DO [address] [place] [address] Health Maintenance Due Date Last Done Comments [...] this encounter Medical Devices Implanted Type Area Employee Communications Manager Device Identifier Shelf Expiration Date Model / Serial / Lot Power Port 8fr Sngl Lumen Plas - [id number] Implanted:Qty : 1 on 10/22/2022 by James Baeza DO at OR [facility] Right: Chest CR BARD : PERIPHERAL VASCULAR [id number] 02/25/2024 [id number] / / [id number] documented as of this encounter Advance Directives Documents on File Type Date Recorded Patient Bed Worker Expl 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 Question Answer Comments Discussion of Advance Directives occurred with: Patient Care Teams Supervisor Rides Relationship Specialty Start Date End Date Escobar Iglesias DO 1400 [facility] [place] [address] PCP - General Family Medicine 10/07/22 documented as of this encounter
--- OUTSIDE RECORDS SUMMARY | 2023-05-29 14:17 | External Medical Summary | Summary of Care ---
Author Name Unknown Organization [facility] Address [address] [place] [address] Phone [phone] Care Team Providers Care Kettle Room Helper Name Role Phone Escobar Iglesias DO Primary Care Provider Reason for Visit * Reason Comments Outpatient Testing Encounter Details Date Type Department Care Team (Late st Contact Info) Description 02/16/2023 9:30 AM EDT Laboratory Laboratory, [facility] 132 [place] [phone] [facility] [address] [place] [address] 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); Malignant neoplasm of transverse colon (HCC) Allergies Active Allergy Reactions Criticality Noted Date Comments Prochlorperazine Edema face/lips/tongue High 023 BODY DYSFUNCTION documented as of this encounter (statuses as of 02/16/2023) Medications Medication Sig Dispensed Refills Start Date [...] HCl 0.1 % Nasal Solution Administer 1 [place] into nostril in the morning and 1 [place] before bedtime. 0 Active Escitalopram Oxalate 10 [...] as of this encounter (statuses as of 02/16/2023) Active Problems Problem Noted Date Diagnosed Date Dehydration 01/05/2023 Hypokalemia 01/05/2023 Metastasis to liver 10/07/2022 Malignant neoplasm of transverse colon Encounter for antineoplastic chemotherapy 2022 JOY (generalized anxiety disorder) 09/26/2022 Severe protein-energy malnutrition 09/25/2022 Abdominal mass, right upper quadrant 09/24/2022 Colonic mass 09/24/2022 Elevated LFTs 09/24/2022 Iron deficiency anemia 09/24/2022 ANTHONY (acute kidney injury) 09/24/2022 documented as of this encounter (statuses as of 02/16/2023) Social History Tobacco Use Types Packs/Day Years [...] Care Team (Late st Contact Info) Description 02/17/2023 12:30 PM EDT Office Visit Hematology/Oncology Tony Tinoco [place] [address] [place] [address] [address] Jeff Robbins MD [address] [place] [address] [address] 02/17/2023 1:00 PM EDT Hem/Onc Treatment Hematology/Oncology Treatment, [place] [address] [place] [address] Alejandrina, Chair 2 Hem Onc Scenery [address] [place] [address] 03/18/2023 2:00 PM EST Telemedicine Palliative Medicine, [facility] 400 [facility] 5th Floor [place] [address] Eli Mckeon CRNP 400 [place] [address] 06/25/2023 2:40 PM EST Telemedicine Hepatology, [facility] [address] [place] [address] Andreea Goodman DO [address] [place] [address] Pending Results Name Type Priority Associated Diagnoses Date /Time CBC WITH WBC DIFFERENTIAL Lab STAT 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) 02/16/2023 9:09 AM EDT COMPREHENSIVE METABOLIC PANEL Lab STAT 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) 02/16/2023 9:09 AM EDT CBC Lab STAT 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) 02/16/2023 9:09 AM EDT DIFFERENTIAL, AUTOMATED Lab STAT 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) 02/16/2023 9:09 AM EDT Health Maintenance Due Date Last Done Comments [...] this encounter Medical Devices Implanted Type Area Systems Support Engineer Device Identifier Shelf Expiration Date Model / Serial / Lot Power Port 8fr Sngl Lumen Plas - [id number] Implanted:Qty : 1 on 10/22/2022 by James Baeza DO at OR [facility] Right: Chest CR BARD : PERIPHERAL VASCULAR [id number] 02/25/2024 [id number] / / [id number] documented as of this encounter Visit Diagnoses Diagnosis 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 Question Answer Comments Discussion of Advance Directives occurred with: Patient Care Teams Kettle Room Helper Relationship Specialty Start Date End Date Escobar Iglesias DO 1400 [facility] [place] [address] PCP - General Family Medicine 10/07/22 documented as of this encounter
--- OUTSIDE RECORDS SUMMARY | 2023-05-29 14:17 | External Medical Summary | Summary of Care ---
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) Encounter for antineoplastic chemotherapy Procedures WY LEUCOVORIN CALCIUM INJECTION WY PALONOSETRON HCL WY FLUOROURACIL INJECTION WY OXALIPLATIN Jeff Robbins MD 200 [facility] [place] [address] Anc Hem/Onc [facility] 200 [facility] [place] [address] Referral ID Status Reason Start Date Expiration Date V isits Requested Visits Authorized [id number] Authorized 01/26/2023 04/25/2099 [id number] Encounter Details Date Type Department Care Team (Latest Contact Info) Description 03/05/2023 12:45 PM EST Immunization/ Injection Hematology/Oncology Treatment, [place] [address] [place] [address] Nurse, Med 200 [facility] [place] [id number] 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)*; Malignant neoplasm of transverse colon (HCC); Encounter for antineoplastic chemotherapy Allergies Active Allergy Reactions Criticality Noted Date Comments Prochlorperazine Edema face/lips/tongue High 05/30/2 023 BODY DYSFUNCTION documented as of this encounter (statuses as of 03/05/2023) Medications Medication Sig Dispensed Refills Start Date [...] HCl 0.1 % Nasal Solution Administer 1 [place] into nostril in the morning and 1 [place] before bedtime. 0 Active Escitalopram Oxalate 10 [...] as of this encounter (statuses as of 03/05/2023) Active Problems Problem Noted Date Diagnosed Date Dehydration 01/05/2023 Hypokalemia 01/05/2023 Metastasis to liver 10/07/2022 Malignant neoplasm of transverse colon Encounter for antineoplastic chemotherapy 2022 JOY (generalized anxiety disorder) 09/26/2022 Severe protein-energy malnutrition 09/25/2022 Abdominal mass, right upper quadrant 09/24/2022 Colonic mass 09/24/2022 Elevated LFTs 09/24/2022 Iron deficiency anemia 09/24/2022 ANTHONY (acute kidney injury) 09/24/2022 documented as of this encounter (statuses as of 03/05/2023) Social History Tobacco Use Types Packs/Day Years [...] as of this encounter Nursing Notes * Marcia Jarquin, RN - 03/05/2023 1:24 PM EST Patient presents to clinic for pump disconnect. Chemo pump disconnect. Mediport flushed with positive blood return. Patient voiced no complaints. documented in this encounter Plan of Treatment Upcoming Encounters Date Type Department Care Team (Late st Contact Info) Description 03/16/2023 10:30 AM EST Laboratory Laboratory, [facility] 132 [facility] [place] [phone] [facility] 132 [facility] [address] 03/17/2023 1:00 PM EST Hem/Onc Treatment Hematology/Oncology Treatment, [place] [address] [facility] [address] [place] [address] Alejandrina, Chair 2 Hem Onc [place] [address] [place] [address] 03/18/2023 2:00 PM EST Telemedicine Palliative Medicine, [facility] 400 [facility] 5th [place] [address] Eli Mckeon CRNP 400 [facility] [address] 03/31/2023 8:15 AM EST Office Visit Hematology/Oncology [facility] Alejandrina [place] 200 [facility] [place] [address] Jeff Robbins MD 200 [facility] [place] [address] 06/25/2023 2:40 PM EST Telemedicine Hepatology, [facility] [address] [place] [address] Andreea Goodman, [address] [place] [address] Health Maintenance Due Date Last Done Comments [...] this encounter Medical Devices Implanted Type Area Leather Staker Device Identifier Shelf Expiration Date Model / Serial / Lot Power Port 8fr Sngl Lumen Plas - [id number] Implanted:Qty : 1 on 10/22/2022 by James Baeza DO at OR [facility] Right: Chest CR BARD : PERIPHERAL VASCULAR [id number] 02/25/2024 [id number] / / [id number] documented as of this encounter Visit Diagnoses [...] PRN Other, IV Flush, Starting on Mamie 03/05/23 at 1237, Until Thu03/06/23 at 1236, For 24 hours, Do not flush if lock, PICC, or central line not in place; IV infusing or unable to flush. Given 03/05/2023 12:40 PM EST 500 Units sodium chloride 0.9 % flush central line 10 mL 10 mL, IV Push, PRN Other, IV Flush, Starting on Mamie 03/05/23 at 1237, Until 03/06/23 at 1236, For 24 hours, Do not flush if lock, PICC, or central line not in place; IV infusing or unable to flush. Given 03/05/2023 12:40 PM EST 10 mL documented in this encounter Advance Directives Documents on File Type Date Recorded Patient Coil Tester Expl 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 Question Answer Comments Discussion of Advance Directives occurred with: Patient Care Teams Mechanic Relationship Specialty Start Date End Date Escobar Iglesias DO [address] [place] [address] PCP - General Family Medicine 10/07/22 documented as of this encounter
--- OUTSIDE RECORDS SUMMARY | 2023-05-29 14:17 | External Medical Summary ---
Author Name Unknown Address Unknown Organization [id number]:LABORATORY [facility] - [address] [place] [address] Laboratory Report Ordering Provider Test Date Status KINGSTON SCHROEDER 03/02/2023 10:21:22 Final Observation Date Value Abnormality Reference (Units ) Status Hepatitis B virus DNA panel - Serum or Plasma 03/02/2023 10:21:22 HBV DNA not detected HBV DNA not detected Final Performing Location LABORATORY [facility] - [address] [place] [address]
--- OUTSIDE RECORDS SUMMARY | 2023-05-29 14:17 | External Medical Summary ---
Author Name Unknown Address Unknown Organization K01:[facility]ATORY [place] [address] [place] [address] Laboratory Report Ordering Provider Test Date Status KINGSTON SCHROEDER 03/02/2023 10:21:22 Final Observation Date Value Abnormality Reference (Units) Status Hepatitis B virus surface Ab [Units/volume] in Serum or Plasma by Immunoassay 03/02/2023 10:21:22 <3.5 (mIU/mL) Final Hepatitis B virus surface Ab [Presence] in Serum by Immunoassay 03/02/2023 10:21:22 Negative Final HEPATITIS B SURFACE ANTIBODY, INTERPRETATION 03/02/2023 10:21:22 NOT immune to Hepatitis B Virus Final POSITIVE: >=11.5 mIU/mL
INDETERMINATE: 8.5-<11.5 mIU/mL
NEGATIVE: <8.5 mIU/mL Performing Location LABORATORY [place] [address] [place] [address]
--- OUTSIDE RECORDS SUMMARY | 2023-05-29 14:17 | External Medical Summary | Summary of Care ---
Author Name Unknown Organization [facility] Address [address] [place] [address] Phone [phone] Care Team Providers Care Admissions Supervisor Name Role Phone Escobar Iglesias DO Primary Care Provider Reason for Visit * Reason Comments Outpatient Testing Encounter Details Date Type Department Care Team (Late st Contact Info) Description 03/02/2023 10:30 AM EST Laboratory Laboratory, [facility] [address] [place] [id number] [facility] [address] [place] [address] 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); Malignant neoplasm of transverse colon (HCC); Hepatitis B core antibody positive Allergies Active Allergy Reactions Criticality Noted Date Comments Prochlorperazine Edema face/lips/tongue High 023 BODY DYSFUNCTION documented as of this encounter (statuses as of 03/02/2023) Medications Medication Sig Dispensed Refills Start Date [...] HCl 0.1 % Nasal Solution Administer 1 [place] into nostril in the morning and 1 [place] before bedtime. 0 Active Escitalopram Oxalate 10 [...] 138 mL infusion 4425 mg IV CONTINUOUS 02/16/2023 Ac tive documented as of this encounter (statuses as of 03/02/2023) Active Problems Problem Noted Date Diagnosed Date Dehydration 01/05/2023 Hypokalemia 01/05/2023 Metastasis to liver 10/07/2022 Malignant neoplasm of transverse colon Encounter for antineoplastic chemotherapy 2022 JOY (generalized anxiety disorder) 09/26/2022 Severe protein-energy malnutrition 09/25/2022 Abdominal mass, right upper quadrant 09/24/2022 Colonic mass 09/24/2022 Elevated LFTs 09/24/2022 Iron deficiency anemia 09/24/2022 ANTHONY (acute kidney injury) 09/24/2022 documented as of this encounter (statuses as of 03/02/2023) Social History Tobacco Use Types Packs/Day Years [...] Care Team (Late st Contact Info) Description 03/03/2023 1:00 PM EST Hem/Onc Treatment Hematology/Oncology Treatment, [place] [address] [place] [address] 03/18/2023 2:00 PM EST Telemedicine Palliative Medicine, [facility] [address] [facility] 5th Floor [place] [address] [facility] CR[facility] [address] 03/31/2023 8:15 AM EST Office Visit Hematology/Oncology [facility] 200 [facility] [place] [address] Jeff Robbins MD 200 [facility] [place] [address] 06/25/2023 2:40 PM EST Telemedicine Hepatology, [facility] [address] [place] [address] Andreea Goodman DO [address] [place] [address] Pending Results Name Type Priority Associated Diagnoses Date /Time COMPREHENSIVE METABOLIC PANEL Lab STAT 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) 03/02/2023 10:21 AM EST HEPATITIS B SURFACE ANTIGEN Lab STAT 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) 03/02/2023 10:21 AM EST HEPATITIS B VIRUS DNA, QUANTITATIVE, REAL-TIME PCR Lab Routine Hepatitis B core antibody positive 03/02/2023 10:21 AM EST HEPATITIS B SURFACE ANTIBODY Lab Routine Hepatitis B core antibody positive 03/02/2023 10:21 AM EST BILIRUBIN, DIRECT Lab Routine Hepatitis B core antibody positive 03/02/2023 10:21 AM EST Health Maintenance Due Date Last [...] this encounter Medical Devices Implanted Type Area E Marketing Specialist Device Identifier Shelf Expiration Date Model / Serial / Lot Power Port 8fr Sngl Lumen Plas - [id number] Implanted:Qty : 1 on 10/22/2022 by James Baeza DO at OR [facility] Right: Chest CR BARD : PERIPHERAL VASCULAR [id number] 02/25/2024 [id number] / / [id number] documented as of this encounter Procedures Procedure Name Priority Date/Time Associated Diagnosis Comments DIFFERENTIAL, AUTOMATED STAT 03/02/2023 10:21 AM EST 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) CBC STAT 03/02/2023 10:21 AM EST 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) CBC STAT 03/02/2023 10:21 AM EST 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) documented in this encounter Results * (ABNORMAL) DIFFERENTIAL, AUTOMATED (03/02/2023 10:21 AM EST) WBC 5.84 4.00 - 10.80 K/uL 03/02/2023 10:30 AM EST [facility] [place] [facility]10 Neutrophils % 59.9 40.0 - 75.0 % 03/02/2023 10:30 AM EST [facility] [place] [facility]10 Lymphocytes % 18.0 18.0 - 42.0 % 03/02/2023 10:30 AM EST [facility] [place] [facility]10 Monocytes % 18.8(H) 1.0 - 11.0 % 03/02/2023 10:30 AM EST [facility] [place] [facility]10 Eosinophils % 2.6 0.0 - 6.0 % 03/02/2023 10:30 AM EST [facility] [place] [facility]10 Basophils % 0.7 0.0 - 2.0 % 03/02/2023 10:30 AM EST [facility] [place] [facility]10 Absolute Neutrophils 3.50 1.80 - 7.70 K/uL 03/02/2023 10:30 AM EST [facility] [place] [facility]10 Absolute Lymphocytes 1.05 1.00 - 4.80 K/ul 03/02/2023 10:30 AM EST [facility] [place] 57[facility]10 Absolute Monocytes 1.10 0.00 - 1.10 K/uL 03/02/2023 10:30 AM EST [facility] [place] [facility]10 Absolute Eosinophils 0.15 0.00 - 0.70 K/uL 03/02/2023 10:30 AM EST [facility] [place] [facility]10 Absolute Basophils 0.04 0.00 - 0.20 K/uL 03/02/2023 10:30 AM EST [facility] [place] [facility]-10 Blood Venous blood specimen / Unknown Venipuncture / Unknown 03/02/2023 10:21 AM EST 03/02/2023 10:21 AM EST Jeff Robbins MD LAB BLOOD ORDERABLES [facility] [place] [facility]-10 [address] [place] [address] * (ABNORMAL) CBC (03/02/2023 10:21 AM EST) WBC 5.84 4.00 - 10.80 K/uL 03/02/2023 10:30 AM EST [facility] [place] [facility]10 RBC 3.08 4.50 - 5.25 M/uL 03/02/2023 10:30 AM EST [facility] [place] 57[facility]10 HGB 11.3(L) 14.0 - 16.8 g/dL 03/02/2023 10:30 AM EST [facility] [place] [facility]10 HCT 34.3(L) 40.0 - 48.4 % 03/02/2023 10:30 AM EST [facility] [place] 57[facility]10 MCV 111.4 82.0 - 99.5 fL 03/02/2023 10:30 AM EST [facility] [place] 57[facility]10 MCH 36.7 27.0 - 34.0 pg 03/02/2023 10:30 AM EST [facility] [place] [facility] MCHC 32.9 32.0 - 36.0 g/dL 03/02/2023 10:30 AM EST [facility] [place] [facility]10 RDW 15.1 11.5 - 15.5 % 03/02/2023 10:30 AM EST [facility] [place] [facility]10 PLT 162 140 - 400 K/uL 03/02/2023 10:30 AM EST [facility] [place] [facility]10 MPV 8.7 6.6 - 11.1 fL 03/02/2023 10:30 AM EST [facility] [place] [facility]10 Blood Venous blood specimen / Unknown Venipuncture / Unknown 03/02/2023 10:21 AM EST 03/02/2023 10:21 AM EST Jeff Robbins MD LAB BLOOD ORDERABLES LAB[facility]ATORY [facility]10 [address] [facility] [place] [address] documented in this encounter Visit Diagnoses Diagnosis 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 Question Answer Comments Discussion of Advance Directives occurred with: Patient Care Teams Admissions Supervisor Relationship Specialty Start Date End Date Escobar Iglesias DO [address] [facility] [place] [address] PCP - General Family Medicine 10/07/22 documented as of this encounter
--- OUTSIDE RECORDS SUMMARY | 2023-05-29 14:17 | External Medical Summary ---
Author Name Unknown Address Unknown Organization K01:LAB[facility]ATORY [facility] - [address] [place] [address] Laboratory Report Ordering Provider Test Date Status BROOKLYNRASHAAD 03/02/2023 10:21:22 Final Observation Date Value Abnormality Reference (Units ) Status Hep B surface Ag 03/02/2023 10:21:22 Negative Neg ative Final Performing Location LABORATORY [facility] - [address] [place] [address]
--- OUTSIDE RECORDS SUMMARY | 2023-05-29 14:17 | External Medical Summary | Summary of Care ---
Author Name Unknown Organization [facility] Address [address] [place] [address] Phone [phone] Care Team Providers Care Service Developer Name Role Phone Escobar Iglesias DO Primary Care Provider Reason for Visit * Reason Comments Follow Up Encounter Details Date Type Department Care Team (Late st Contact Info) Description 02/17/2023 12:30 PM EDT Office Visit [facility]ematology[facility] [place] [address] [facility] [place] [address] Jeff Robbins MD [address] [facility] [place] [address] Malignant neoplasm of transverse colon (HCC)*; 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); Hepatitis B core antibody positive Allergies Active Allergy Reactions Criticality Noted Date Comments Prochlorperazine Edema face/lips/tongue High 023 BODY DYSFUNCTION documented as of this encounter (statuses as of 02/17/2023) Medications Medication Sig Dispensed Refills Start Date [...] HCl 0.1 % Nasal Solution Administer 1 [place] into nostril in the morning and 1 [place] before bedtime. 0 Active Escitalopram Oxalate 10 [...] as of this encounter (statuses as of 02/17/2023) Active Problems Problem Noted Date Diagnosed Date Dehydration 01/05/2023 Hypokalemia 01/05/2023 Metastasis to liver 10/07/2022 Malignant neoplasm of transverse colon Encounter for antineoplastic chemotherapy 2022 JOY (generalized anxiety disorder) 09/26/2022 Severe protein-energy malnutrition 09/25/2022 Abdominal mass, right upper quadrant 09/24/2022 Colonic mass 09/24/2022 Elevated LFTs 09/24/2022 Iron deficiency anemia 09/24/2022 ANTHONY (acute kidney injury) 09/24/2022 documented as of this encounter (statuses as of 02/17/2023) Social History Tobacco Use Types Packs/Day Years [...] Sign Reading Time Taken Comments Blood Pressure 102/60 02/17/2023 12:21 PM EDT Pulse 92 02/17/2023 12:21 PM EDT Temperature - - Respiratory Rate 18 02/17/2023 12:21 PM EDT Oxygen Saturation 99% 02/17/2023 12:21 PM EDT Inhaled Oxygen Concentration - - Weight 70.4 kg (155 lb 3.2 oz) 02/17/2023 12:21 PM EDT Height - - Body Mass Index 25.06 10/22/2022 12:03 PM EDT documented in this [...] Progress Notes * Jeff Robbins MD - 02/17/2023 12:30 PM EDT Hematology/Oncology Outpatient Clinic note [facility] [place] [address] 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 Iron deficiency. Right lower extremity DVT (02/06/2023): Abdominal ascites, S/P paracentesis, 4 L fluid [...] partial response noted. HISTORY OF PRESENT ILLNESS: Recently he had increasing right leg swelling, Doppler evaluation confirmed DVT, he is on Eliquis since then. He also had increasing abdominal distention, he was admitted admitted at [facility], reviewed the hospital records, had abdominal paracentesis, 4 L fluid removed, cytologywas negative for malignant cells, improvement of distention of the abdomen noted, he is on hydrochlorothiazide and Aldactone diuretic therapy. Previously noted right leg edema has improved. No fever, ambulates slowly, current weight around 155 lb. No fever. No diarrhea, no constipation. Past Surgical History: Procedure Laterality Date INSER TUNN ACC DEV;5 YRS/OLDER Right 10/22/2022 INSERT TUNNELED CENTRAL VENOUS ACCESS WITH SUBQ PORT performed by James Baeza DO at OR [facility] IR BIOPSY 09/25/2022 Social History [...] Resource Strain: Not on file Food Insecurity: Not on file Transportation Needs: Not on file Physical Activity: [...] HCl 0.1 % Nasal Solution Administer 1 [place] into nostril in the morning and 1 [place] before bedtime. Escitalopram Oxalate 10 MG Oral [...] needed for Pain, Moderate. 30 Tablet 0 Mirtazapine 30 MG Oral Tablet (Remeron) Take 1 Tablet by mouth at bedtime. 60 Tablet 0 busPIRone HCl 10 MG [...] (one tablet) twice daily 50 Tablet 2 No current facility-administered medications for this visit. OBJECTIVE: BP 102/60 (BP Site: Left Arm, BP Position: Sitting, BP Cuff Size: Regular) | Pulse 92 | Resp 18 | Wt 70.4 kg (155 lb 3.2 oz) | SpO2 99% | BMI 25.06 kg/m | BSA 1.81 m PHYSICAL EXAM: ECOG: Performance Status 1 [...] normal S1, S2, no appreciable murmurs Pulses/Extremities: +2-3 edema in RLE from hip down to foot, palpable pedal pulse, mild erythema present, ecchymotic area to right ankle; +1 edema LLE Abdomen: Normal - Softly distended, +ascites present, nontender, bowel sounds present, +hepatomegaly Neurologic: alert and oriented x 4, ambulating with walker LABS: Blood workup done on 02/16/2023: -WBC 4400, H&H of 11.3/33.6, Platelet count 530951 -BUN/Creat: 15/0.9, Calcium 8.6 -AST 40, ALT 17, alkaline phosphatase 309, bilirubin level 0.6. Bilateral lower extremity Doppler evaluation:(02/06/2023) -right lower [...] --> no DVT. He was admitted at [facility] for volume overload increasing ascites. S/P abdominal paracentesis on 02/09/2023 at [facility], for L of the fluid removed. Cytology [...] direct questions to the provider listed above.) * Dina Hernández LPN - 02/17/2023 12:22 PM EDT Patient identifed by name and birthdate Do you have any concerns about pain management for today's visit? No. Living Will or Advance Directive for Health Care as noted on the problem list. [facility] is a way you can talk to your provider on line through e-mail. Would you like to sign up? I can activate it for you? ALREADY ACTIVE Filed Vitals: 02/17/23 1221 BP: 102/60 Pulse: 92 Resp: 18 SpO2: 99% Weight: 70.4 kg (155 lb 3.2 oz) Patient states he doesn't know which meds he's on. documented in this encounter Plan of Treatment Upcoming Encounters Date Type Department Care Team (Late st Contact Info) Description 02/19/2023 12:30 PM EDT Immunization/Injection Hematology/Oncology Treatment, [address] [place] [address] Nurse, Med [facility] [place] [address] 03/02/2023 10:30 AM EST [facility] [place] [address] [facility] [place] [phone] [facility]ito bunn [facility] 132 [facility] [place] [address] 03/03/2023 1:00 PM EST Hem/Onc Treatment Hematology/Oncology Treatment, [address] [address] 03/18/2023 2:00 PM EST Telemedicine Palliative Medicine, [facility] [address] [facility] 5th Floor [place] [address] Eli Mckeon CRNP [address] [facility] [place] [address] 03/31/2023 8:15 AM EST Office Visit Hematology/Oncology [place] [address] [place] [address] Jeff Robbins MD [address] [place] [facility] [place] [address] 06/25/2023 2:40 PM EST Telemedicine Hepatology, [facility] [address] [place] [address] Andreea Goodman DO [address] [place] [address] Health Maintenance Due Date Last Done Comments [...] this encounter Medical Devices Implanted Type Area Senior Associate Device Identifier Shelf Expiration Date Model / Serial / Lot Power Port 8fr Sngl Lumen Plas - [id number] Implanted:Qty : 1 on 10/22/2022 by James Baeza DO at OR [facility] Right: Chest CR BARD : PERIPHERAL VASCULAR [id number] 02/25/2024 [id number] / / [id number] documented as of this encounter Visit Diagnoses Diagnosis Malignant neoplasm of transverse colon (HCC)- Primary Malignant 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 Question Answer Comments Discussion of Advance Directives occurred with: Patient Care Teams Service Developer Relationship Specialty Start Date End Date Escobar Iglesias DO [address] [place] [address] PCP - General Family Medicine 10/07/22 documented as of this encounter"
--- OUTSIDE RECORDS SUMMARY | 2023-05-29 14:17 | External Medical Summary ---
Author Name Unknown Address Unknown Organization K0G:[facility] [place] [facility] - [address] [place] [address] Laboratory Report Ordering Provider Test Date Status RASHAAD BARAHONA 03/02/2023 10:21:22 Final Observation Date Value Abnormality Reference (Units ) Status BUN 03/02/2023 10:21:22 15 6-20 (mg/dL) Final Creatinine 03/02/2023 10:21:22 1.1 0.6-1.2 (mg/dL) Final Glomerular filtration rate/1.73 sq M.predicted [Volume Rate/Area] in Serum, Plasma or Blood by Creatinine-based formula (CKD-EPI) 03/02/2023 10:21:22 72 >=60 (mL/min) Final eGFR is calculated based on the CKD-EPI 2020 equation SODIUM 03/02/2023 10:21:22 137 135-146 (m mol/L) Final Potassium 03/02/2023 10:21:22 4.0 3.5-5.1 (m mol/L) Final Cl 03/02/2023 10:21:22 101 98-107 (mm ol/L) Final CO2 03/02/2023 10:21:22 22 22-32 (mmo l/L) Final Anion gap 03/02/2023 10:21:22 14 7-15 (mmol /L) Final Glucose 03/02/2023 10:21:22 110 70-120 (mg /dL) Final Albumin 03/02/2023 10:21:22 2.9 Below low normal 3.8 -5.0 (g/dL) Final AST (Aspartate aminotransferase) 03/02/2023 10:21:22 47 10-50 (U/L) Fin al Alk Phos 03/02/2023 10:21:22 342 Above high normal 35 -130 (U/L) Final Bilirubin, Total 03/02/2023 10:21:22 0.5 <=1 .2 (mg/dL) Final Calcium 03/02/2023 10:21:22 8.8 8.4-10.2 ( mg/dL) Final Protein 03/02/2023 10:21:22 6.3 6.0-8.3 (g /dL) Final ALT (Alanine aminotransferase) 03/02/2023 10:21:22 22 10-50 (U/L) Tres ordonez Performing Location LABORATORY [place] 57-1 0 - [address] [facility] [place] [address]
--- OUTSIDE RECORDS SUMMARY | 2023-05-29 14:17 | External Medical Summary ---
Author Name Unknown Address Unknown Organization K0G:LABORATORY [place] [facility]-10 - [address] [place] [address] Laboratory Report Ordering Provider Test Date Status RASHAAD BARAHONA 03/02/2023 10:21:22 Final Observation Date Value Abnormality Reference (Units ) Status SYNC LEUKOCYTES IN BLOOD BY AUTOMATED COUNT 03/02/2023 10:21:22 5.84 4.00-10.80 (K/uL) Final Segs 03/02/2023 10:21:22 59.9 40.0-75.0 (%) Final Lymphs % 03/02/2023 10:21:22 18.0 18.0-42.0 (%) Final Monos 03/02/2023 10:21:22 18.8 Above high normal 1.0-11.0 (%) Final Eosinophils 03/02/2023 10:21:22 2.6 0.0-6.0 (%) Final Basos 03/02/2023 10:21:22 0.7 0.0-2.0 (%) Final Absolute Segs 03/02/2023 10:21:22 3.50 1.80-7.70 (K/uL) Final Lymphs, absolute 03/02/2023 10:21:22 1.05 1.00-4.80 (K/ul) Final Monos, Abs 03/02/2023 10:21:22 1.10 0.00-1.10 (K/uL) Final Eos, Abs 03/02/2023 10:21:22 0.15 0.00-0.70 (K/uL) Final Basos, Abs 03/02/2023 10:21:22 0.04 0.00-0.20 (K/uL) Final Performing Location LAB[facility]ATORY [place] 57-1 0 - [address] [place] [address]
--- OUTSIDE RECORDS SUMMARY | 2023-05-29 14:17 | External Medical Summary | Summary of Care ---
Author Name Unknown Organization [facility] Address [address] [place] [address] Phone [phone] Care Team Providers Care Circular Knitter Helper Name Role Phone Escobar Iglesias DO Primary Care Provider Encounter Details Date Type Department Care Team (Late st Contact Info) Description 03/02/[address] [facility] [address] [place] [address] Jeff Robbins MD [address] [place] [address] Allergies Active Allergy Reactions Criticality Noted Date [...] HCl 0.1 % Nasal Solution Administer 1 [place] into nostril in the morning and 1 [place] before bedtime. 0 Active Escitalopram Oxalate 10 [...] mL infusion 4425 mg IV CONTINUOUS 03/02/2023 Active Fluorouracil (5-Fu) 4,425 mg in NSS 138 mL infusion 4425 mg IV CONTINUOUS 02/16/2023 03/02/2023 Discontinued documented as of this encounter (statuses [...] Department Care Team (Latest Contact Info) Description 03/03/2023 1:00 PM EST Hem/Onc Treatment Hematology/Oncolog y Treatment, [place] [address] [place] [address] 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)*; Malignant neoplasm of transverse colon (HCC); Encounter for antineoplastic chemotherapy 03/18/2023 2:00 PM EST Telemedicine Palliative Medicine, [facility] [address] [facility] 5th Floor [place] [address] Eli Mckeon CRNP [address] [facility] [place] [address] 03/31/2023 8:15 AM EST Office Visit Hematology/Oncolog y [facility] [address] [place] [address] Jeff Robbins MD [address] [place] [address] 06/25/2023 2:40 PM EST Telemedicine Hepatology, [facility] [address] [place] [address] Andreea Goodman DO [address] [place] [address] Health Maintenance Due Date Last Done Comments [...] this encounter Medical Devices Implanted Type Area Job Service Specialist Device Identifier Shelf Expiration Date Model / Serial / Lot Power Port 8fr Sngl Lumen Plas - [id number] Implanted:Qty : 1 on 10/22/2022 by James Baeza DO at OR [facility] Right: Chest CR BARD : PERIPHERAL VASCULAR [id number] 02/25/2024 [id number] / / [id number] documented as of this encounter Advance Directives Documents on File Type Date Recorded Patient Dish Carrier Expl 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 Question Answer Comments Discussion of Advance Directives occurred with: Patient Care Teams Circular Knitter Helper Relationship Specialty Start Date End Date Escobar Iglesias DO [address] [place] [address] PCP - General Family Medicine 10/07/22 documented as of this encounter
--- OUTSIDE RECORDS SUMMARY | 2023-05-29 14:17 | External Medical Summary ---
Author Name Unknown Address Unknown Organization K0G:LAB[facility]ATORY [facility] - [address] [place] [address] Laboratory Report Ordering Provider Test Date Status RASHAAD BARAHONA 02/16/2023 09:09:19 Final Observation Date Value Abnormality Reference (Units ) Status BUN 02/16/2023 09:09:19 15 6-20 (mg/dL) Final Creatinine 02/16/2023 09:09:19 0.9 0.6-1.2 (mg/dL) Final Glomerular filtration rate/1.73 sq M.predicted [Volume Rate/Area] in Serum, Plasma or Blood by Creatinine-based formula (CKD-EPI) 02/16/2023 09:09:19 85 >=60 (mL/min) Final eGFR is calculated based on the CKD-EPI 2020 equation SODIUM 02/16/2023 09:09:19 137 135-146 (m mol/L) Final Potassium 02/16/2023 09:09:19 3.9 3.5-5.1 (m mol/L) Final Cl 02/16/2023 09:09:19 103 98-107 (mm ol/L) Final CO2 02/16/2023 09:09:19 23 22-32 (mmo l/L) Final Anion gap 02/16/2023 09:09:19 11 7-15 (mmol /L) Final Glucose 02/16/2023 09:09:19 107 70-120 (mg /dL) Final Albumin 02/16/2023 09:09:19 2.5 Below low normal 3.8 -5.0 (g/dL) Final AST (Aspartate aminotransferase) 02/16/2023 09:09:19 40 10-50 (U/L) Fin al Alk Phos 02/16/2023 09:09:19 309 Above high normal 35 -130 (U/L) Final Bilirubin, Total 02/16/2023 09:09:19 0.6 <=1 .2 (mg/dL) Final Calcium 02/16/2023 09:09:19 8.6 8.4-10.2 ( mg/dL) Final Protein 02/16/2023 09:09:19 5.6 Below low normal 6.0 -8.3 (g/dL) Final ALT (Alanine aminotransferase) 02/16/2023 09:09:19 17 10-50 (U/L) Tres ordonez Performing Location LABORATORY [place] 57-1 0 - [address] [facility] [address]
--- OUTSIDE RECORDS SUMMARY | 2023-05-29 14:17 | External Medical Summary ---
Author Name Unknown Address Unknown Organization K0G:[facility] [address] [place] [address] Laboratory Report Ordering Provider Test Date Status RASHAAD BARAHONA 03/02/2023 10:21:22 Final Observation Date Value Abnormality Reference (Units ) Status WBC, Total 03/02/2023 10:21:22 5.84 4.00-10.8 0 (K/uL) Final RBC 03/02/2023 10:21:22 3.08 4.50-5.25 (M/uL) Final Hemoglobin 03/02/2023 10:21:22 11.3 Below low normal 14 .0-16.8 (g/dL) Final HCT 03/02/2023 10:21:22 34.3 Below low normal 40. 0-48.4 (%) Final MCV 03/02/2023 10:21:22 111.4 82.0-99.5 (fL) Final MCH 03/02/2023 10:21:22 36.7 27.0-34.0 (pg) Final MCHC 03/02/2023 10:21:22 32.9 32.0-36.0 (g/dL) Final RDW 03/02/2023 10:21:22 15.1 11.5-15.5 (%) Final Platelets 03/02/2023 10:21:22 162 140-400 (K /uL) Final MPV 03/02/2023 10:21:22 8.7 6.6-11.1 ( fL) Final Performing Location [facility] [address] [place] [address]
--- OUTSIDE RECORDS SUMMARY | 2023-05-29 14:17 | External Medical Summary | Summary of Care ---
Author Name Unknown Organization [facility] Address [address] [place] [address] Phone [phone] Care Team Providers Care Business Line Manager Name Role Phone Escobar Iglesias DO Primary Care Provider Reason for Visit * Reason Comments Procedure Pump d/c/port flush 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) Encounter for antineoplastic chemotherapy Procedures [place] LEUCOVORIN CALCIUM INJECTION [place] PALONOSETRON HCL [place] FLUOROURACIL INJECTION [place] OXALIPLATIN Jeff Robbins MD [address] [facility] [place] [address] Anc Hem/Onc [facility] [address] [facility] [place] [address] Referral ID Status Reason Start Date Expiration Date V isits Requested Visits Authorized [id number] Authorized 01/26/2023 04/25/2099 999 999 Encounter Details Date Type Department Care Team (Latest Contact Info) Description 02/19/2023 12:30 PM EDT Immunization/ Injection Hematology/Oncology Treatment, [place] [address] [place] [address] Nurse, Med [address] [place] [address] 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)*; Malignant neoplasm of transverse colon (HCC); Encounter for antineoplastic chemotherapy Allergies Active Allergy Reactions Criticality Noted Date Comments Prochlorperazine Edema face/lips/tongue High 023 BODY DYSFUNCTION documented as of this encounter (statuses as of 02/19/2023) Medications Medication Sig Dispensed Refills Start Date [...] as of this encounter (statuses as of 02/19/2023) Active Problems Problem Noted Date Diagnosed Date Dehydration 01/05/2023 Hypokalemia 01/05/2023 Metastasis to liver 10/07/2022 Malignant neoplasm of transverse colon Encounter for antineoplastic chemotherapy 2022 JOY (generalized anxiety disorder) 09/26/2022 Severe protein-energy malnutrition 09/25/2022 Abdominal mass, right upper quadrant 09/24/2022 Colonic mass 09/24/2022 Elevated LFTs 09/24/2022 Iron deficiency anemia 09/24/2022 ANTHONY (acute kidney injury) 09/24/2022 documented as of this encounter (statuses as of 02/19/2023) Social History Tobacco Use Types Packs/Day Years [...] Nursing Notes * Rachel Rogers RN - 02/19/2023 1:33 PM EDT Chair 10 Pt arrives with home 5FU infusion pump completed. He states he's doing well, denies any acute complaints. Pump disconnected, VAD flushed per protocol and michele needle removed. Patient tolerated treatment well and was discharged in stable condition. No coverage needed today. documented in this encounter Plan of Treatment Upcoming Encounters Date Type Department Care Team (Late st Contact Info) Description 03/02/2023 10:30 AM EST Laboratory Laboratory, [facility] [address] [facility] [place] [id number] [facility] [address] [facility] [place] [address] 03/03/2023 1:00 PM EST Hem/Onc Treatment Hematology[facility], [place] [facility] [address] 03/18/2023 2:00 PM EST Telemedicine Palliative Medicine, [facility] [address] [facility] 5th [place] [address] Eli [facility]on CRNP [address] [facility] [address] 03/31/2023 8:15 AM EST Office Visit Hematology/Oncology [facility] [address] [facility] [address] [place] [address] Jeff Robbins MD [address] [facility] [address] [place] [address] 06/25/2023 2:40 PM EST Telemedicine Hepatology, [facility] [address] [address] Andreea Goodman, [address] [address] Health Maintenance Due Date Last Done Comments [...] this encounter Medical Devices Implanted Type Area Bath Solution Maker Device Identifier Shelf Expiration Date Model / Serial / Lot Power Port 8fr Sngl Lumen Plas - [id number] Implanted:Qty : 1 on 10/22/2022 by James Baeza DO at OR [facility] Right: Chest CR BARD : PERIPHERAL VASCULAR [id number] 02/25/2024 [id number] / / [id number] documented as of this encounter Visit Diagnoses [...] PRN Other, IV Flush, Starting on Mamie 02/19/23 at 1216, Until 02/20/23 at 1215, For 24 hours, Do not flush if lock, PICC, or central line not in place; IV infusing or unable to flush. Given 02/19/2023 12:18 PM EDT 500 Units sodium chloride 0.9 % flush central line 10 mL 10 mL, IV Push, PRN Other, IV Flush, Starting on Mamie 02/19/23 at 1216, Until 02/20/23 at 1215, For 24 hours, Do not flush if lock, PICC, or central line not in place; IV infusing or unable to flush. 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 Question Answer Comments Discussion of Advance Directives occurred with: Patient Care Teams Business Line Manager Relationship Specialty Start Date End Date Escobar Iglesias DO [address] [place] [address] PCP - General Family Medicine 10/07/22 documented as of this encounter
--- OUTSIDE RECORDS SUMMARY | 2023-05-29 14:17 | External Medical Summary ---
Author Name Unknown Address Unknown Organization [facility] [address] [place] [address] Laboratory Report Ordering Provider Test Date Status RASHAAD BARAHONA 02/16/2023 09:09:19 Final Observation Date Value Abnormality Reference (Units ) Status WBC, Total 02/16/2023 09:09:19 4.44 4.00-10.8 0 (K/uL) Final RBC 02/16/2023 09:09:19 3.01 4.50-5.25 (M/uL) Final Hemoglobin 02/16/2023 09:09:19 11.3 Below low normal 14 .0-16.8 (g/dL) Final HCT 02/16/2023 09:09:19 33.6 Below low normal 40. 0-48.4 (%) Final MCV 02/16/2023 09:09:19 111.6 82.0-99.5 (fL) Final MCH 02/16/2023 09:09:19 37.5 27.0-34.0 (pg) Final MCHC 02/16/2023 09:09:19 33.6 32.0-36.0 (g/dL) Final RDW 02/16/2023 09:09:19 17.2 11.5-15.5 (%) Final Platelets 02/16/2023 09:09:19 193 140-400 (K /uL) Final MPV 02/16/2023 09:09:19 9.5 6.6-11.1 ( fL) Final Performing Location [facility] [address] [place] [address]
--- OUTSIDE RECORDS SUMMARY | 2023-05-29 14:17 | External Medical Summary ---
Author Name Unknown Address Unknown Organization K0G:[facility] [address] [place] [address] Laboratory Report Ordering Provider Test Date Status RASHAAD BARAHONA 02/16/2023 09:09:19 Final Observation Date Value Abnormality Reference (Units ) Status SYNC LEUKOCYTES IN BLOOD BY AUTOMATED COUNT 02/16/2023 09:09:19 4.44 4.00-10.80 (K/uL) Final Neutrophils/100 leukocytes in Blood by Manual count 02/16/2023 09:09:19 49.0 40.0-75.0 (%) Final Lymphocytes/100 leukocytes in Blood by Manual count 02/16/2023 09:09:19 22.0 18.0-42.0 (%) Final Monocytes/100 leukocytes in Blood by Manual count 02/16/2023 09:09:19 22.0 Above high normal 1.0-11.0 (%) Final Eosinophils/100 leukocytes in Blood by Manual count 02/16/2023 09:09:19 4.0 0.0-6.0 (%) Final Basophils/100 leukocytes in Blood by Manual count 02/16/2023 09:09:19 1.0 0.0-2.0 (%) Final Metamyelocytes/100 leukocytes in Blood by Manual count 02/16/2023 09:09:19 2.0 Above high normal <=0.0 (%) Final Neutrophils [#/volume] in Blood by Manual count 02/16/2023 09:09:19 2.18 1.80-7.70 (K/uL) Final Lymphocytes [#/volume] in Blood by Manual count 02/16/2023 09:09:19 0.98 Below low normal 1.00-4.80 (K/uL) Final Monocytes [#/volume] in Blood by Manual count 02/16/2023 09:09:19 0.98 0.00-1.10 (K/uL) Final Eosinophils [#/volume] in Blood by Manual count 02/16/2023 09:09:19 0.18 0.00-0.70 (K/uL) Final Basophils [#/volume] in Blood by Manual count 02/16/2023 09:09:19 0.04 0.00-0.20 (K/uL) Final Metamyelocytes [#/volume] in Blood by Manual count 02/16/2023 09:09:19 0.09 Above high normal <=0.00 (K/uL) Final Nucleated erythrocytes/100 leukocytes [Ratio] in Blood by Automated count 02/16/2023 09:09:19 Final Acanthocytes [Presence] in Blood by Light microscopy 02/16/2023 09:09:19 Moderate Abnormal None Seen Final Schistocytes 02/16/2023 09:09:19 Few Abnormal None Seen Final Variant lymphocytes [Presence] in Blood by Light microscopy 02/16/2023 09:09:19 Present Abnormal None Seen Final Performing Location LABORATORY [place] [address] [place] [address]
--- OUTSIDE RECORDS SUMMARY | 2023-05-29 14:17 | External Medical Summary | Summary of Care ---
Author Name Unknown Organization [facility] Address [address] [place] [address] Phone [phone] Care Team Providers Care Campus Coordinator Name Role Phone Escobar Iglesias DO Primary Care Provider Reason for Visit * Reason Comments Chemotherapy C10D1 Leucovorin/5-F U * Episode Based Medications (Routine) - Authorized Specialty Diagnoses / Procedures Referred By Barbra t Referred To Contact Diagnoses 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) Encounter for antineoplastic chemotherapy Procedures [place] LEUCOVORIN CALCIUM INJECTION [place] PALONOSETRON HCL [place] FLUOROURACIL INJECTION [place] OXALIPLATIN Jeff Robbins MD [address] [place] [address] Anc Hem/Onc [facility] [address] [facility] [address] Referral ID Status Reason Start Date Expiration Date V isits Requested Visits Authorized [id number] Authorized 01/26/2023 04/25/2099 999 999 Encounter Details Date Type Department Care Team (Latest Contact Info) Description 03/03/2023 1:00 PM EST Hem/Onc Treatment Hematology/[facility]colog [facility], [place] [facility] [address] 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)*; Malignant neoplasm of transverse colon (HCC); Encounter for antineoplastic chemotherapy Allergies Active Allergy Reactions Criticality Noted Date Comments Prochlorperazine Edema face/lips/tongue High 023 BODY DYSFUNCTION documented as of this encounter (statuses as of 03/03/2023) Medications Medication Sig Dispensed Refills Start Date [...] HCl 0.1 % Nasal Solution Administer 1 [place] into nostril in the morning and 1 [place] before bedtime. 0 Active Escitalopram Oxalate 10 [...] as of this encounter (statuses as of 03/03/2023) Active Problems Problem Noted Date Diagnosed Date Dehydration 01/05/2023 Hypokalemia 01/05/2023 Metastasis to liver 10/07/2022 Malignant neoplasm of transverse colon Encounter for antineoplastic chemotherapy 2022 JOY (generalized anxiety disorder) 09/26/2022 Severe protein-energy malnutrition 09/25/2022 Abdominal mass, right upper quadrant 09/24/2022 Colonic mass 09/24/2022 Elevated LFTs 09/24/2022 Iron deficiency anemia 09/24/2022 ANTHONY (acute kidney injury) 09/24/2022 documented as of this encounter (statuses as of 03/03/2023) Social History Tobacco Use Types Packs/Day Years [...] Sign Reading Time Taken Comments Blood Pressure 104/75 03/03/2023 1:14 PM EST Pulse 73 03/03/2023 1:14 PM EST Temperature 36 C (96.8 F) 03/03/2023 1:14 PM EST Respiratory Rate 18 03/03/2023 1:14 PM EST Oxygen Saturation 99% 03/03/2023 1:14 PM EST Inhaled Oxygen Concentration - - Weight 64.3 kg (141 lb 12.8 oz) 03/03/2023 1:14 PM EST Height - - Body Mass Index 22.9 10/22/2022 12:03 PM EDT documented in this [...] as of this encounter Nursing Notes * Swathi Solano RN - 03/03/2023 2:59 PM EST Chair 11 Pt here for C10D1 Leucovorin/5-FU. Reports that he fell approximately 1 week ago. He was leaning forward to stand up and leaned to far and fell hitting forehead and face. Accompanied by family who report he had no mental status changes. Abrasion noted on forehead. Red excoriation noted around mouththat patient states is from shaving over scabs from fall. Reports that eyes water "all the time". Pt states he has "good" appetite but eating small meals. Weight loss noted. Pt states he stopped drinking boost recently. Dr. Robbins notified of patient's weight loss and in to see patient. Ok to proceed with treatment today. Chemo agents 5-FU Appetite "good" Nausea/Vomiting denies Diarrhea denies Constipation at times, takes laxatives as needed Mucositis denies Fatigue "always tired" Bleeding denies Infection denies Rash denies Numbness tingling denies Pain denies Radiation no ABN Labs WNL for treatment; labs reviewed by Dr. Robbins Alt in [place]: no Return in 2 days Safety and Risk for Injury Patient will remain free from injury. Ensure appropriate safety devices are available. Provide and maintain safe environment. Goals: Patient will remain free from injury. Possible barriers to meeting goals: ambulation with IV pole, use of assistive device for ambulation, recent fall Stability of the patient: Moderately unstable - medium risk of patient condition declining or worsening Summary regarding today's goals: Met: patient without injury during treatment today. Functional status at today's visit: Ambulatory and [...] symptoms or adverse side effects during treatment. \\ Pt tolerated ordered medications well. Home 5-FU infusion initiated. No complaints. Discharged in stable condition. documented in this encounter Plan of Treatment Upcoming Encounters Date Type Department Care Team (Late st Contact Info) Description 03/05/2023 12:45 PM EST Immunization/Injection [address]ematology[address], [address] [address] Nurse, Med [address] [place] [address] [place] [address] 03/16/2023 10:30 AM EST Laboratory Laboratory, [facility] [id number] [facility] [address] [facility] [place] [address] 03/17/2023 1:00 PM EST Hem/Onc Treatment Hematology/[address], [address] [address] Alejandrina, Chair 2 Hem Onc [address] [place] [address] 03/18/2023 2:00 PM EST Telemedicine Palliative Medicine, [address] 5[address] Floor [place], [place] [id number] Eli Mckeon CRNP [address] [place] [address] 03/31/2023 8:15 AM EST Office [facility] [place] [address] [facility] [place] [address] Jeff Robbins MD [address] [place] [address] 06/25/2023 2:40 PM EST Telemedicine Hepatology, [facility] [address] [place] [address] Andreae Goodman DO [address] [place] [address] Health Maintenance Due Date Last Done Comments [...] this encounter Medical Devices Implanted Type Area Car Ferrier Device Identifier Shelf Expiration Date Model / Serial / Lot Power Port 8fr Sngl Lumen Plas - [id number] Implanted:Qty : 1 on 10/22/2022 by James Baeza DO at OR [facility] Right: Chest CR BARD : PERIPHERAL VASCULAR [id number] 02/25/2024 [id number] / / [id number] documented as of this encounter Visit Diagnoses [...] ONCE PRN Other, Hypersensitivity Reaction, Starting on Thu03/03/23 at 1314, Until Thu03/04/23 at 1313, For 24 hours EPINEPHrine 1 MG/ML inj 0.3 mg 0.3 mg, Intramuscular, ONCE PRN Other, Hypersensitivity Reaction or Anaphylaxis, Starting on Thu03/03/23 at 1314, Until Thu03/04/23 at 1313, For 24 hours hEParin 100 UNIT/ML Lock Flush inj 500 Units 500 Units (5 mL), IV Lock, PRN Other, IV Flush, Starting on Thu03/03/23 at 1314, Until Thu03/04/23 at 1313, For 24 hours, Do not flush if lock, PICC, or central line not in place; IV infusing or unable to flush. Hydrocortisone Sod Suc (PF) (Solu-Cortef) inj 100 mg 100 mg, IV Push, ONCE PRN Other, Hypersensitivity Reaction, Starting on Thu03/03/23 at 1314, Until Thu03/04/23 at 1313, For 24 hours oxygen GAS Inhalation, OXYGEN, First dose on Thu03/03/23 at 1600, Until Discontinued, Device/Managed by: Low Flow Device, Goal SPO2 (%): 91-95, Starting Device: Nasal Cannula, Inital Flow Rate (LPM): 2, Lowest Support: Nasal [...] Push, PRN Other, IV Flush, Starting on Thu03/03/23 at 1314, Until Thu03/04/23 at 1313, For 24 hours, Do not flush if lock, PICC, or central line not in place; IV infusing or unable to flush. Inactive Administered Medications - up to 3 most recent administrations Medication Order MAR Action Action Date Dose Rate Site Fluorouracil (5-Fu) 4,425 mg for Home Infusion 4,425 mg (rounded from 4,416 mg = 2,400 mg/m2 1.84 m2 Treatment Plan BSA from Recorded weight), Intravenous, Administer over 46 Hours, Home Infusion Pharmacy to specify base solution and volume., ONCE, 1 dose, On Thu03/03/23 at 1315 Start Infusion 03/03/2023 2:25 PM EST 4,425 mg 3 mL/hr Fluorouracil (5-Fu) inj 725 mg 725 mg (rounded from 736 mg = 400 mg/m2 1.84 m2 Treatment Plan BSA from Recorded weight), IV Push, ONCE, 1 dose, On Thu03/03/23 at 1345 Given 03/03/2023 2:20 PM EST 725 mg leucovorin calcium 750 mg in D5W 250 mL INFUSION 750 mg (rounded from 736 mg = 400 mg/m2 1.84 m2 Treatment Plan BSA from Recorded weight), IV Piggyback, ONCE, 1 dose, On Thu03/03/23 at 1345, Administer over 30 Minutes, Before 5-FU Start Infusion 03/03/2023 1:48 PM EST 750 mg 500 mL/hr NSS infusion FOR HYDRATION Intravenous, at 50 mL/hr Administer over 10 Hours, ONCE, 1 dose, On Thu03/03/23 at 1345 Start Infusion 03/03/2023 1:40 PM EST 500 mL 50 mL/hr ondansetron (Zofran) tab 8 mg 8 mg, Oral, ONCE, On Thu03/03/23 at 1345, For 1 dose Given 03/03/2023 1:45 PM EST 8 mg documented in this encounter Advance Directives Documents on File Type Date Recorded 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 Question Answer Comments Discussion of Advance Directives occurred with: Patient Care Teams Campus Coordinator Relationship Specialty Start Date End Date Escobar Iglesias DO [address] [address] PCP - General Family Medicine 10/07/22 documented as of this encounter
--- OUTSIDE RECORDS SUMMARY | 2023-05-29 14:17 | External Medical Summary | Summary of Care ---
Author Name Unknown Organization [facility] Address [address] [place] [address] Phone [phone] Care Team Providers Care Dumper Bailer Operator Name Role Phone Escobar Iglesias DO Primary Care Provider Reason for Visit * Reason Comments Chemotherapy C9/D1 - leucovorin/5 FU 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) Encounter for antineoplastic chemotherapy Procedures [place] LEUCOVORIN CALCIUM INJECTION [place] PALONOSETRON HCL [place] FLUOROURACIL INJECTION [place] OXALIPLATIN Jeff Robbins MD [address] [place] [address] Anc Hem/Onc [address] [place] [address] Referral ID Status Reason Start Date Expiration Date V isits Requested Visits Authorized [id number] Authorized 01/26/2023 04/25/2099 [id number] Encounter Details Date Type Department Care Team (Latest Contact Info) Description 02/17/2023 1:00 PM EDT Hem/Onc Treatment Hematology/Oncolog y Treatment, [place] [address] [facility] [place] [address] Alejandrina, Chair 2 Hem Onc [address] [place] [address] 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)*; Malignant neoplasm of [...] HCl 0.1 % Nasal Solution Administer 1 [place] into nostril in the morning and 1 [place] before bedtime. 0 Active Escitalopram Oxalate 10 [...] shopping? (15 years old or older) No 05/31/20 23 Cognitive Status Response Date of Assessm ent Because of a physical, menta l, or emotional condition, do you have serious difficulty concentrating, remembering, or making decisions? (5 years old or older No 09/24/2022 documented as of this encounter Nursing Notes * Kasey Barkley RN - 02/17/2023 3:54 PM EDT Chair 12. Patient saw Dr. Robbins today -- see OV note for details. Port accessed without difficulty. Patient comfortable and denies further needs at this time. Chemo agents Leucovorin, 5FU ABN Labs WNL for tx Alt in Tx: N/A Return in 2 days for pump d/c Safety and Risk for Injury Patient will remain free from injury. Ensure appropriate safety devices are available. Provide and maintain safe environment. Goals: Patient will remain free from injury. Possible barriers to meeting goals: ambulating with IV pole, age Stability of the patient: Moderately stable - [...] well without any acute issues or problems. 5FU pump connected and infusing. Patient left facility in stable condition and denied any further needs. documented in this encounter Plan of Treatment Upcoming Encounters Date Type Department Care Team (Late st Contact Info) Description 02/19/2023 12:30 PM EDT Immunization/Injection Hematology/Oncology Treatment, [place] [address] [place] [address] Nurse, Med [address] [facility] [place] [address] 03/02/2023 10:30 AM EST Laboratory Laboratory, [facility] [address] [facility] [place] [id number] Betito Huerta [facility] [address] [facility] [place] [address] 03/03/2023 1:00 PM EST Hem/Onc Treatment Hematology/Oncology Treatment, [place] [address] [facility] [address] 03/18/2023 2:00 PM EST Telemedicine Palliative Medicine, [facility] [address] [facility] 5th [place] [address] Eli Mckeon CRNP [address] [place] [address] 03/31/2023 8:15 AM EST Office Visit Hematology/Oncology [facility] [address] [place] [address] Jeff Robbins MD [address] [facility] [address] 06/25/2023 2:40 PM EST Telemedicine Hepatology, [facility] [address] [facility] [place] [address] Andreea Goodman DO [facility] [address] Health Maintenance Due Date Last Done Comments [...] encounter Medical Devices Implanted Type Area Processor Helper Device Identifier Shelf Expiration Date Model / Serial / Lot Power Port 8fr Sngl Lumen Plas - [id number] Implanted:Qty : 1 on 10/22/2022 by James Baeza, at OR [facility] Right: Chest CR BARD : PERIPHERAL VASCULAR [id number] 02/25/2024 [id number] / / [id number] documented as of this encounter Visit Diagnoses [...] ONCE PRN Other, Hypersensitivity Reaction, Starting on Thu02/17/23 at 1313, Until Thu02/18/23 at 1312, For 24 hours EPINEPHrine 1 MG/ML inj 0.3 mg 0.3 mg, Intramuscular, ONCE PRN Other, Hypersensitivity Reaction or Anaphylaxis, Starting on Thu02/17/23 at 1313, Until Thu02/18/23 at 1312, For 24 hours hEParin 100 UNIT/ML Lock Flush inj 500 Units 500 Units (5 mL), IV Lock, PRN Other, IV Flush, Starting on Thu02/17/23 at 1313, Until Thu02/18/23 at 1312, For 24 hours, Do not flush if lock, PICC, or central line not in place; IV infusing or unable to flush. Hydrocortisone Sod Suc (PF) (Solu-Cortef) inj 100 mg 100 mg, IV Push, ONCE PRN Other, Hypersensitivity Reaction, Starting on Thu02/17/23 at 1313, Until Thu02/18/23 at 1312, For 24 hours oxygen GAS Inhalation, OXYGEN, First dose on Thu02/17/23 at 1600, Until Discontinued, Device/Managed by: Low [...] Push, PRN Other, IV Flush, Starting on Thu02/17/23 at 1313, Until Thu02/18/23 at 1312, For 24 hours, Do not flush if [...] solution and volume., ONCE, 1 dose, On Thu02/17/23 at 1315 Start Infusion 02/17/2023 2:15 PM EDT 4,425 mg 3 mL/hr Fluorouracil (5-Fu) inj 725 mg 725 mg (rounded from 736 mg = 400 mg/m2 1.84 m2 Treatment Plan BSA from Recorded weight), IV Push, ONCE, 1 dose, On Thu02/17/23 at 1345 Given 02/17/2023 2:09 PM EDT 725 mg leucovorin calcium 750 mg in D5W 250 mL INFUSION 750 mg (rounded from 736 mg = 400 mg/m2 1.84 m2 Treatment Plan BSA from Recorded weight), IV Piggyback, ONCE, 1 dose, On Thu02/17/23 at 1345, Administer over 30 Minutes, Before 5-FU Start Infusion 02/17/2023 1:31 PM EDT 750 mg 500 mL/hr NSS infusion FOR HYDRATION Intravenous, at 50 mL/hr Administer over 10 Hours, ONCE, 1 dose, On Thu02/17/23 at 1345 Start Infusion 02/17/2023 1:31 PM EDT 500 mL 50 mL/hr ondansetron (Zofran) tab 8 mg 8 mg, Oral, ONCE, On Thu02/17/23 at 1345, For 1 dose Given 02/17/2023 1:31 PM EDT 8 mg documented in this encounter Advance Directives Documents on File Type Date Recorded Patient Apprenticeship Consultant Expl 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 Question Answer Comments Discussion of Advance Directives occurred with: Patient Care Teams Dumper Bailer Operator Relationship Specialty Start Date End Date Escobar Iglesias DO [address] [facility] [place] [address] PCP - General Family Medicine 10/07/22 documented as of this encounter
--- OUTSIDE RECORDS SUMMARY | 2023-05-29 14:18 | External Medical Summary | Summary of Care ---
Author Name Unknown Organization [facility] Address [address] [place] [address] Phone [phone] Care Team Providers Care Pad Tufter Name Role Phone Escobar Iglesias DO Primary Care Provider Reason for Visit * Reason Onset Date Comments Advice 02/05/2023 Eli Finch Encounter Details Date Type Department Care Team Description 02/05/2023 Telephone Hematology/Oncology, [facility] [address] [place] [address] Eli Finch CRNP [address] [place] [address] Advice (Eli Finch) Allergies Active Allergy Reactions Severity Noted Date Comments Prochlorperazine Edema face/lips/tongue High 023 BODY DYSFUNCTION documented as of this encounter (statuses as of 02/06/2023) Medications Medication Sig Dispensed Refills Start Date [...] HCl 0.1 % Nasal Solution Administer 1 [place] into nostril in the morning and 1 [place] before bedtime. 0 Active Escitalopram Oxalate 10 [...] as of this encounter (statuses as of 02/06/2023) Active Problems Problem Noted Date Dehydration 01/05/2023 Hypokalemia 01/05/2023 Metastasis to liver 10/07/2022 Malignant neoplasm of transverse colon 0 10/07/2022 Encounter for antineoplastic chemotherap y 10/07/2022 JOY (generalized anxiety disorder) 09/26 Severe protein-energy malnutrition 09/25 Abdominal mass, right upper quadrant Colonic mass 09/24/2022 Elevated LFTs 09/24/2022 Iron deficiency anemia 09/24/2022 ANTHONY (acute kidney injury) 09/24/2022 documented as of this encounter (statuses as of 02/06/2023) Social History Tobacco Use Types Packs/Day Years Used Date Smoking Tobacco: Never Smokeless Tobacco: Never Alcohol Use Standard Drinks/Week Comments Never 0 (1 standard drink = 0.6 oz pur e alcohol) Sex Assigned at Date Recorded Not on file Job Start Date Occupation [...] encounter Miscellaneous Notes * Telephone Encounter - Nomi Fink RN - 02/06/2023 3:07 PM EDT Received call from patients . Patient and son are still outside facility where patient had US, waiting for results as patient is becoming more weak and symptomatic. They do not feel he could waituntil Thursday or Thursday to have paracentesis if this is needed. Advised patients that we would recommend patient go to ER for evaluation/ paracentesis as needed. We will not be able to arrange paracentesis as a outpatient until Thursday as outpatient is closedon the weekend. She verbalized understanding. Called [facility] ER and spoke to Aliyah. She is aware patient is coming. * Telephone Encounter - OSIRIS Corbett - 02/06/2023 8:16 AM EDT Called spoke to laila at [facility] she scheduled patient today at the [facility] site for Ultrasound Stat at 2pm. Called and spoke to patients and she is aware of time and that patient is luis enrique fasting until he has the Ultrasound. She is also aware that blood work is needed too. * Telephone Encounter - OSIRIS Corbett - 02/05/2023 3:56 PM EDT Faxed referral for ultrasound/lab work to [facility]. Catherine called and spoke to and she stated that she has a ride for patient tomorrow but is working on seeing if someone can take him today to [facility]. Catherine will schedule and follow up with . * Addendum Note - Nomi Fink RN - 02/05/2023 3:01 PM EDTAddended by: NOMI FINK on: 02/05/2023 03:01 PM Modules accepted: Orders * Telephone Encounter - Nomi Fink RN - 02/05/2023 2:57 PM EDT Reviewed with Eli. Would like patient to have STAT abd US to assess ascites and repeat BMP as well. Called and spoke to patient/ . They are agreeable to above. Scheduling: please call patient/ to schedule STAT BMP/ US at either or [facility]. Thanks! * Telephone Encounter - OSIRIS Dickey - 02/05/2023 2:31 PM EDT Pts Marlen called in stating that the pt was placed on water pills by Eli Finch. She states the pt is still having swelling in his belly and they would like to speak to a nurse regarding.She is asking for a return call as soon as possible to discuss. [phone] documented in this encounter Plan of Treatment Upcoming Encounters Date Type Specialty Care Team Description 02/09/2023 Laboratory Laboratory [place], Lab [address]enery [address] [place] [address] 02/10/2023 Office Visit Hematology Oncology Eli Finch CRNP [address] [place] [address] 02/10/2023 Hem/Onc Treatment Hematology Oncology Alejandrina, Chair 1 Hem Onc Scenery [address] [place] [address] 03/18/2023 Telemedicine Palliative Medicine Eli Mckeon CRNP [address] [place] [address] 06/25/2023 Telemedicine Gastroenterology Andreea Goodman, DO [address] [place] [address] Scheduled Orders Name Type Priority Associated Diagnoses Orde r Schedule US ABDOMEN LIMITED Medical Imaging STAT 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) Expected: 02/05/2023, Expires: 03/08/2024 BASIC METABOLIC PANEL Lab STAT 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) Expected: 02/05/2023, Expires: 02/06/2024 Health Maintenance Due Date Last Done Comments [...] this encounter Medical Devices Implanted Type Area Professor Of Art History Device Identifier Shelf Expiration Date Model / Serial / Lot Power Port 8fr Sngl Lumen Plas - [id number] Implanted:Qty : 1 on 10/22/2022 by James aBeza DO at OR [facility] Right: Chest CR BARD : PERIPHERAL VASCULAR [id number] 02/25/2024 [id number] / / [id number] documented as of this encounter Visit Diagnoses Diagnosis 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)- Primary 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) Malignant neoplasm of transverse colon documented in this encounter Advance Directives Documents on File Type Date Recorded Patient Pinsetter Mechanic Helper Expl 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 Question Answer Comments Discussion of Advance Directives occurred with: Patient Care Teams Pad Tufter Relationship Specialty Start Date End Date Escobar Iglesias DO [address] [place] [address] PCP - General Family Medicine 10/07/22 documented as of this encounter
--- OUTSIDE RECORDS SUMMARY | 2023-05-29 14:18 | External Medical Summary | Summary of Care ---
Author Name Unknown Organization [facility] Address [address] [place] [address] Phone [phone] Care Team Providers Care Urologic Nurse Name Role Phone Escobar Iglesias DO Primary Care Provider Reason for Visit * Reason Onset Date Comments Advice 02/05/2023 Eli Finch Encounter Details Date Type Department Care Team Description 02/05/2023 Telephone Hematology/Oncology, [facility] [address] [place] [address] Eli Finch CRNP [address] [place] [address] Advice (Eli Finch) Allergies Active [...] HCl 0.1 % Nasal Solution Administer 1 [place] into nostril in the morning and 1 [place] before bedtime. 0 Active Escitalopram Oxalate 10 [...] encounter Miscellaneous Notes * Telephone Encounter - OSIRIS Corbett - 02/06/2023 8:16 AM EDT Called spoke to laila at [facility] she scheduled patient today at the [facility] site for Ultrasound Stat at 2pm. Called and spoke to patients and she is aware of time and that patient is luis enrique fasting until he has the Ultrasound. * Telephone Encounter - OSIRIS Corbett - 02/05/2023 3:56 PM EDT Faxed referral for ultrasound/lab work to [facility]. Catherine called and spoke to and she stated that she has a ride for patient tomorrow but is working on seeing if someone can take him today to [facility]. Catherine will schedule and follow up with . * Addendum Note - Charisse Fink RN - 02/05/2023 3:01 PM EDTAddended by: CHARISSE FINK on: 02/05/2023 03:01 PM Modules accepted: Orders * Telephone Encounter - Charisse Fink RN - 02/05/2023 2:57 PM EDT Reviewed with Eli. Would like patient to have STAT abd US to assess ascites and repeat BMP as well. Called and spoke to patient/ . They are agreeable to above. Scheduling: please call patient/ to schedule STAT BMP/ US at either or [facility]. Thanks! * Telephone Encounter - OSIRIS Dickey - 02/05/2023 2:31 PM EDT Pts Marlen called in stating that the pt was placed on water pills by Eli Finch. She states the pt is still having swelling in his belly and they would like to speak to a nurse regarding.She is asking for a return call as soon as possible to discuss. [phone] documented in this encounter Plan of Treatment Upcoming Encounters Date Type Specialty Care Team Description 02/09/2023 Laboratory Laboratory [place], Lab Scenery [address] [place] [address] 02/10/2023 Office Visit Hematology Oncology Eli Finch CRNP [address] [place] [address] 02/10/2023 Hem/Onc Treatment Hematology Oncology [place], Chair 1 Hem Onc Scenery [address] [place] [address] 03/18/2023 Telemedicine Palliative Medicine Eli Mckeon CRNP [address] [place] [address] 06/25/2023 Telemedicine Gastroenterology Andreea Goodman DO [address] [place] [address] Scheduled Orders Name Type Priority Associated Diagnoses [...] this encounter Medical Devices Implanted Type Area Oncology Social Work Device Identifier Shelf Expiration Date Model / Serial / Lot Power Port 8fr Sngl Lumen Plas - [id number] Implanted:Qty : 1 on 10/22/2022 by James Baeza DO at OR [facility] Right: Chest CR BARD : PERIPHERAL VASCULAR [id number] 02/25/2024 [id number] / / [id number] documented as of this encounter Visit Diagnoses Diagnosis 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)- Primary 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) Malignant neoplasm of transverse colon documented in this encounter Advance Directives Documents on File Type Date Recorded Patient Revenue Director Expl 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 Question Answer Comments Discussion of Advance Directives occurred with: Patient Care Teams Urologic Nurse Relationship Specialty Start Date End Date Escobar Iglesias DO [address] [place] [address] PCP - General Family Medicine 10/07/22 documented as of this encounter
--- OUTSIDE RECORDS SUMMARY | 2023-05-29 14:18 | External Medical Summary | Summary of Care ---
Author Name Unknown Organization [facility] Address [address] [place] [address] Phone [phone] Care Team Providers Care Line Worker Name Role Phone Escobar Iglesias DO Primary Care Provider Reason for Visit * Reason Onset Date Comments Advice 02/05/2023 Eli Finch Encounter Details Date Type Department Care Team Description 02/05/2023 Telephone Hematology/Oncology, [facility] [address] [place] [address] Eli Finch CRNP [address] [place] [address] Advice (Eli Finch) Allergies Active Allergy Reactions Severity Noted Date Comments Prochlorperazine Edema face/lips/tongue High 023 BODY DYSFUNCTION documented as of this encounter (statuses as of 02/05/2023) Medications Medication Sig Dispensed Refills Start Date [...] HCl 0.1 % Nasal Solution Administer 1 [place] into nostril in the morning and 1 [place] before bedtime. 0 Active Escitalopram Oxalate 10 [...] as of this encounter (statuses as of 02/05/2023) Active Problems Problem Noted Date Dehydration 01/05/2023 Hypokalemia 01/05/2023 Metastasis to liver 10/07/2022 Malignant neoplasm of transverse colon 0 10/07/2022 Encounter for antineoplastic chemotherap y 10/07/2022 JOY (generalized anxiety disorder) 09/26 Severe protein-energy malnutrition 09/25 Abdominal mass, right upper quadrant Colonic mass 09/24/2022 Elevated LFTs 09/24/2022 Iron deficiency anemia 09/24/2022 ANTHONY (acute kidney injury) 09/24/2022 documented as of this encounter (statuses as of 02/05/2023) Social History Tobacco Use Types Packs/Day Years [...] EDT Faxed referral for ultrasound/lab work to [facility]. Catherine called and spoke to and she stated that she has a ride for patient tomorrow but is working on seeing if someone can take him today to [facility]. Catherine will schedule and follow up [...] schedule STAT BMP/ US at either or [facility]. Thanks! * Telephone Encounter - OSIRIS Dickey - 02/05/2023 2:31 PM EDT Pts Marlen called in stating that the pt was placed on water pills by Eli Finch. She states the pt is still having swelling in his belly and they would like to speak to a nurse regarding.She is asking for a return call as soon as possible to discuss. [phone] documented in this encounter Plan of Treatment Upcoming Encounters Date Type Specialty Care Team Description 02/09/2023 Laboratory Laboratory Alejandrina, Lab Scenery [address] [place] [address] 02/10/2023 Office Visit Hematology Oncology Eli Finch CRNP [address] [place] [address] 02/10/2023 Hem/Onc Treatment Hematology Oncology Alejandrina, Chair 1 Hem Onc Scenery [address] [place] [address] 03/18/2023 Telemedicine Palliative Medicine Eli Mckeon CRNP [address] [place] [address] 06/25/2023 Telemedicine Gastroenterology Andreea Goodman DO [address] [place] [address] Scheduled Orders Name Type Priority Associated Diagnoses [...] encounter Medical Devices Implanted Type Area Account Associate Device Identifier Shelf Expiration Date Model / Serial / Lot Power Port 8fr Sngl Lumen Plas - [id number] Implanted:Qty : 1 on 10/22/2022 by James Baeza DO at OR [facility] Right: Chest CR BARD : PERIPHERAL VASCULAR [id number] 02/25/2024 [id number] / / [id number] documented as of this encounter Visit Diagnoses Diagnosis 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)- Primary 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) Malignant neoplasm of transverse colon documented in this encounter Advance Directives Documents on File Type Date Recorded Patient Svp Research & Ebusiness Operations Expl 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 Question Answer Comments Discussion of Advance Directives occurred with: Patient Care Teams Line Worker Relationship Specialty Start Date End Date Escobar Iglesias DO [address] [place] [address] PCP - General Family Medicine 10/07/22 documented as of this encounter
--- OUTSIDE RECORDS SUMMARY | 2023-05-29 14:18 | External Medical Summary | Summary of Care ---
Author Name Unknown Organization [facility] Address [address] [place] [address] Phone [phone] Care Team Providers Care Chief Analytics Officer Name Role Phone Escobar Iglesias DO Primary Care Provider Reason for Visit * Reason Onset Date Comments Advice 02/09/2023 Encounter Details Date Type Department Care Team Description 02/09/2023 Telephone Hematology/Oncology [facility] Alejandrina [place] 200 [facility] [place] [address] eJff Robbins MD 200 [facility] [place] [address] Advice Allergies Active Allergy Reactions Severity Noted Date Comments Prochlorperazine Edema face/lips/tongue High 023 BODY DYSFUNCTION documented as of this encounter (statuses as of 02/09/2023) Medications Medication Sig Dispensed Refills Start Date [...] 0.1 % Nasal Solution Administer 1 [place] into nostril in the morning and 1 [place] before bedtime. 0 Active Escitalopram Oxalate 10 [...] as of this encounter (statuses as of 02/09/2023) Active Problems Problem Noted Date Dehydration 01/05/2023 Hypokalemia 01/05/2023 Metastasis to liver 10/07/2022 Malignant neoplasm of transverse colon 0 10/07/2022 Encounter for antineoplastic chemotherap y 10/07/2022 JOY (generalized anxiety disorder) 09/26 Severe protein-energy malnutrition 09/25 Abdominal mass, right upper quadrant Colonic mass 09/24/2022 Elevated LFTs 09/24/2022 Iron deficiency anemia 09/24/2022 ANTHONY (acute kidney injury) 09/24/2022 documented as of this encounter (statuses as of 02/09/2023) Social History Tobacco Use Types Packs/Day Years [...] * Telephone Encounter - OSIRIS Corbett - 02/09/2023 1:50 PM EDT Rescheduled treatment appt to 02/17 and lab work at for 02/16. Sent a message to about his chemo/recheck appt. Waiting to be advised. * Addendum Note - Nomi Fink RN - 02/09/2023 12:43 PM EDTAddended by: NOMI FINK on: 02/09/2023 12:43 PM Modules accepted: Orders * Telephone Encounter - Nomi Fink RN - 02/09/2023 12:38 PM EDT Reviewed with Dr Robbins- would like patient rescheduled to next week. Called and spoke to Marlen who verbalized understanding. She states that she is leaving to go to [place] soon. If someone calls her today, ok to leave a voicemail on [phone] line; otherwise, she can be reached tomorrow. Scheduling: - please cancel follow up/ treatment appt tomorrow and reschedule for next week (Thursday or Thursday) - patient will need labs "CBCd, CMP" at the day prior before noon Thanks! * Telephone Encounter - OSIRIS Robertson - 02/09/2023 10:21 AM EDT Patients called in stating that the patient is currently admitted to the hospital at [facility]. Shestated that he had fluid on his abdomen and they are draining it out this afternoon. She is asking if the office can send over the orders for his labs to the hospital for him to have done while he istheir. She stated that as long as everything goes ok, he is to get out this afternoon. Also, they are questioning if he should still have his treatment done tomorrow with everything that is going on.If someone can call her to discuss. documented in this encounter Plan of Treatment Upcoming Encounters Date Type Specialty Care Team Description 02/16/2023 Laboratory Laboratory Betito Huerta [address] [facility] [place] [address] 02/17/2023 Hem/Onc Treatment Hematology Oncology [place], Chair 2 Hem Onc Scenery [address] [place] [address] 03/18/2023 Telemedicine Palliative Medicine Mike EliSHELTON [address] [place] [address] 06/25/2023 Telemedicine Gastroenterology Andreea Goodman DO [address] [place] [address] Health Maintenance Due Date Last Done Comments [...] this encounter Medical Devices Implanted Type Area Editorial Director Device Identifier Shelf Expiration Date Model / Serial / Lot Power Port 8fr Sngl Lumen Plas - [id number] Implanted:Qty : 1 on 10/22/2022 by James Baeza DO at OR [facility] Right: Chest CR BARD : PERIPHERAL VASCULAR [id number] 02/25/2024 [id number] / / [id number] documented as of this encounter Advance Directives Documents on File Type Date Recorded Patient Ocean Fishing Guide Expl 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 Question Answer Comments Discussion of Advance Directives occurred with: Patient Care Teams Chief Analytics Officer Relationship Specialty Start Date End Date Escobar Iglesias DO [address] [place] [address] PCP - General Family Medicine 10/07/22 documented as of this encounter
--- OUTSIDE RECORDS SUMMARY | 2023-05-29 14:18 | External Medical Summary | Summary of Care ---
Author Name Unknown Organization [facility] Address [address] [place] [address] Phone [phone] Care Team Providers Care Civil Process Server Name Role Phone Escobar Iglesias DO Primary Care Provider Reason for Visit * Reason Onset Date Comments Advice 02/09/2023 Encounter Details Date Type Department Care Team Description 02/09/2023 Telephone Hematology/Oncology [facility] Alejandrina [place] 200 [facility] [place] [address] Jeff Robbins MD 200 [facility] [place] [address] Advice Allergies Active Allergy Reactions Severity Noted Date Comments Prochlorperazine Edema face/lips/tongue High 023 BODY DYSFUNCTION documented as of this encounter (statuses as of 02/10/2023) Medications Medication Sig Dispensed Refills Start Date [...] HCl 0.1 % Nasal Solution Administer 1 [place] into nostril in the morning and 1 [place] before bedtime. 0 Active Escitalopram Oxalate 10 [...] as of this encounter (statuses as of 02/10/2023) Active Problems Problem Noted Date Dehydration 01/05/2023 Hypokalemia 01/05/2023 Metastasis to liver 10/07/2022 Malignant neoplasm of transverse colon 0 10/07/2022 Encounter for antineoplastic chemotherap y 10/07/2022 JOY (generalized anxiety disorder) 09/26 Severe protein-energy malnutrition 09/25 Abdominal mass, right upper quadrant Colonic mass 09/24/2022 Elevated LFTs 09/24/2022 Iron deficiency anemia 09/24/2022 ANTHONY (acute kidney injury) 09/24/2022 documented as of this encounter (statuses as of 02/10/2023) Social History Tobacco Use Types Packs/Day Years [...] * Telephone Encounter - OSIRIS Corbett - 02/10/2023 10:25 AM EDT Called and spoke to patients and she is aware of appts for 02/16 for lab work and andtreatment appts on 02/17. * Telephone Encounter - OSIRIS Corbett - [...] that she is leaving to go to [place] soon. If someone calls her today, ok to leave a voicemail on [phone] line; otherwise, she can be reached tomorrow. Scheduling: - please cancel follow up/ treatment appt tomorrow and reschedule for next week (Thursday or Thursday) - patient will need labs "CBCd, CMP" at the day prior before noon Thanks! * Telephone Encounter - OSIRIS Robertson - 02/09/2023 10:21 AM EDT Patients called in stating that the patient is currently admitted to the hospital at [facility]. Shestated that he had fluid on his [...] Description 02/16/2023 Laboratory Laboratory Betito Huerta [address] [place] [address] 02/17/2023 Office Visit Hematology Oncology Jeff Robbins MD [address] [place] [address] 02/17/2023 Hem/Onc Treatment Hematology [place]cology [place], Chair 2 Hem Onc Scenery [address] [place] [facility] [address] 03/18/2023 Telemedicine Palliative Medicine Eli Mckeon CRNP [address] [place] [address] 06/25/2023 Telemedicine Gastroenterology Andreea Goodman DO [address] [place] [address] Health Maintenance Due Date Last Done Comments [...] this encounter Medical Devices Implanted Type Area Licensed Mass Real Estate Appraiser Device Identifier Shelf Expiration Date Model / Serial / Lot Power Port 8fr Sngl Lumen Plas - [id number] Implanted:Qty : 1 on 10/22/2022 by James Baeza DO at OR [facility] Right: Chest CR BARD : PERIPHERAL VASCULAR [id number] 02/25/2024 [id number] / / [id number] documented as of this encounter Advance Directives Documents on File Type Date Recorded Patient Workday Financials Consultant Expl 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 Question Answer Comments Discussion of Advance Directives occurred with: Patient Care Teams Civil Process Server Relationship Specialty Start Date End Date Escobar Iglesias DO [address] [place] [address] PCP - General Family Medicine 10/07/22 documented as of this encounter
--- OUTSIDE RECORDS SUMMARY | 2023-05-29 14:18 | External Medical Summary | Summary of Care ---
Author Name Unknown Organization [facility] Address [address] [place] [address] Phone [phone] Care Team Providers Care Ingot Header Name Role Phone Escobar Iglesias DO Primary Care Provider Reason for Visit * Reason Onset Date Comments Advice 02/05/2023 Eli Finch Encounter Details Date Type Department Care Team Description 02/05/2023 Telephone Hematology/Oncology, [facility] [address] [place] [address] Eli Finch CRNP [address] [place] [address] Advice (Eli Finch) Allergies Active [...] HCl 0.1 % Nasal Solution Administer 1 [place] into nostril in the morning and 1 [place] before bedtime. 0 Active Escitalopram Oxalate 10 [...] AM EDT Called spoke to laila at [facility] she scheduled patient today at the [facility] site for Ultrasound Stat at 2pm. Called and spoke to patients and she is aware of time and that patient is luis enrique fasting until he has the Ultrasound. She is also aware that blood work is needed too. * Telephone Encounter - OSIRIS Corbett - 02/05/2023 3:56 PM EDT Faxed referral for ultrasound/lab work to [facility]. Catherine called and spoke to and she stated that she has a ride for patient tomorrow but is working on seeing if someone can take him today to [facility]. Catherine will schedule and follow up [...] schedule STAT BMP/ US at either or [facility]. Thanks! * Telephone Encounter - OSIRIS Dickey - 02/05/2023 2:31 PM EDT Pts Marlen called in stating that the pt was placed on water pills by Eli Finch. She states the pt is still having swelling in his belly and they would like to speak to a nurse regarding.She is asking for a return call as soon as possible to discuss. [phone] documented in this encounter Plan of Treatment Upcoming Encounters Date Type Specialty Care Team Description 02/09/2023 Laboratory Laboratory [place], Lab Scenery [address] [place] [address] 02/10/2023 Office Visit Hematology Oncology Eli Finch CRNP [address] [place] [address] 02/10/2023 Hem/Onc Treatment Hematology Oncology [place], Chair 1 Hem Onc Scenery [address] [place] [address] 03/18/2023 Telemedicine Palliative Medicine Eli Mckeon CRNP [address] [place] [address] 06/25/2023 Telemedicine Gastroenterology Andreea Goodman, [address] [place] [address] Scheduled Orders Name Type Priority Associated Diagnoses [...] this encounter Medical Devices Implanted Type Area Degree Clerk Device Identifier Shelf Expiration Date Model / Serial / Lot Power Port 8fr Sngl Lumen Plas - [id number] Implanted:Qty : 1 on 10/22/2022 by James Baeza DO at OR [facility] Right: Chest CR BARD : PERIPHERAL VASCULAR [id number] 02/25/2024 [id number] / / [id number] documented as of this encounter Visit Diagnoses Diagnosis 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 Question Answer Comments Discussion of Advance Directives occurred with: Patient Care Teams Ingot Header Relationship Specialty Start Date End Date Escobar Iglesias DO [address] [place] [address] PCP - General Family Medicine 10/07/22 documented as of this encounter
--- OUTSIDE RECORDS SUMMARY | 2023-05-29 14:18 | External Medical Summary | Summary of Care ---
Author Name Unknown Organization [facility] Address [address] [place] [address] Phone [phone] Care Team Providers Care Drilling Foreman Name Role Phone Escobar Iglesias DO Primary Care Provider Reason for Visit * Reason Onset Date Comments Advice 02/09/2023 Encounter Details Date Type Department Care Team Description 02/09/2023 Telephone Hematology/Oncology [facility] Alejandrina [place] [address] [facility] [place] [address] Jeff Robbins MD 200 [facility] [place] [address] Advice Allergies Active Allergy Reactions Severity Noted [...] HCl 0.1 % Nasal Solution Administer 1 [place] into nostril in the morning and 1 [place] before bedtime. 0 Active Escitalopram Oxalate 10 [...] encounter Miscellaneous Notes * Addendum Note - Charisse Fink RN - 02/09/2023 12:43 PM EDTAddended by: CHARISSE FINK on: 02/09/2023 12:43 PM Modules accepted: Orders * Telephone Encounter - Charisse Fink RN - 02/09/2023 12:38 PM EDT Reviewed with Dr Robbins- would like patient rescheduled to next week. Called and spoke to Marlen who verbalized understanding. She states that she is leaving to go to [place] soon. If someone calls her today, ok to leave a voicemail on [phone] line; otherwise, she can be reached tomorrow. Scheduling: - please cancel follow up/ treatment appt tomorrow and reschedule for next week (Thursday or Thursday) - patient will need labs "CBCd, CMP" at the day prior before noon Thanks! * Telephone Encounter - OSIRIS Robertson - 02/09/2023 10:21 AM EDT Patients called in stating that the patient is currently admitted to the hospital at [facility]. Shestated that he had fluid on his [...] Encounters Date Type Specialty Care Team Description 02/10/2023 Office Visit Hematology Oncology Eli Finch CRNP [address] [place] [address] 02/10/2023 Hem/Onc Treatment Hematology Oncology Alejandrina, Chair 1 Hem Onc Scenery [address] [facility] [address] 03/18/2023 Telemedicine Palliative Medicine Eli Mckeon CRNP [address] [place] [address] 06/25/2023 Telemedicine Gastroenterology Andreea Goodman DO [address] [place] [address] Health Maintenance Due Date Last Done Comments [...] this encounter Medical Devices Implanted Type Area Energy Administrator Device Identifier Shelf Expiration Date Model / Serial / Lot Power Port 8fr Sngl Lumen Plas - [id number] Implanted:Qty : 1 on 10/22/2022 by James Baeza DO at OR [facility] Right: Chest CR BARD : PERIPHERAL VASCULAR [id number] 02/25/2024 [id number] / / [id number] documented as of this encounter Advance Directives Documents on File Type Date Recorded Patient Surgery Specialist Expl 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 Question Answer Comments Discussion of Advance Directives occurred with: Patient Care Teams Drilling Foreman Relationship Specialty Start Date End Date Escobar Iglesias DO [address] [place] [address] PCP - General Family Medicine 10/07/22 documented as of this encounter
--- OUTSIDE RECORDS SUMMARY | 2023-05-29 14:18 | External Medical Summary | Summary of Care ---
Author Name Unknown Organization [facility] Address [address] [place] [address] Phone [phone] Care Team Providers Care Polysomnographic Technologist Name Role Phone Escobar Iglesias DO Primary Care Provider Reason for Visit * Reason Onset Date Comments Advice 02/09/2023 Encounter Details Date Type Department Care Team Description 02/09/2023 Telephone Hematology/Oncology [facility] Alejandrina [place] [address] [facility] [place] [address] Jeff Robbins MD 200 [facility] [place] [address] Advice Allergies Active Allergy Reactions Severity Noted [...] HCl 0.1 % Nasal Solution Administer 1 [place] into nostril in the morning and 1 [place] before bedtime. 0 Active Escitalopram Oxalate 10 [...] that she is leaving to go to [place] soon. If someone calls her today, ok to leave a voicemail on [phone] line; otherwise, she can be reached tomorrow. Scheduling: - please cancel follow up/ treatment appt tomorrow and reschedule for next week (Thursday or Thursday) - patient will need labs "CBCd, CMP" at the day prior before noon Thanks! * Telephone Encounter - OSIRIS Robertson - 02/09/2023 10:21 AM EDT Patients called in stating that the patient is currently admitted to the hospital at [facility]. Shestated that he had fluid on his [...] Oncology Eli Finch CRNP [address] [place] [address] 02/10/2023 Hem/Onc Treatment Hematology Oncology Alejandrina, Chair 1 Hem Onc Scenery [address] [facility] [address] 03/18/2023 Telemedicine Palliative Medicine Eli Mckeon CRNP [address] [place] [address] 06/25/2023 Telemedicine Gastroenterology Andreea Goodman DO [address] [place] [address] Health Maintenance Due Date Last Done Comments [...] this encounter Medical Devices Implanted Type Area Metal Stamping Machine Operator Device Identifier Shelf Expiration Date Model / Serial / Lot Power Port 8fr Sngl Lumen Plas - [id number] Implanted:Qty : 1 on 10/22/2022 by James Baeza DO at OR [facility] Right: Chest CR BARD : PERIPHERAL VASCULAR [id number] 02/25/2024 [id number] / / [id number] documented as of this encounter Advance Directives Documents on File Type Date Recorded Patient Mathematics Improvement Teacher Expl 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 Question Answer Comments Discussion of Advance Directives occurred with: Patient Care Teams Polysomnographic Technologist Relationship Specialty Start Date End Date Escobar Iglesias DO [address] [place] [address] PCP - General Family Medicine 10/07/22 documented as of this encounter
--- OUTSIDE RECORDS SUMMARY | 2023-05-29 14:19 | External Medical Summary ---
Author Name Unknown Address Unknown Organization K01:[facility] - [address] [place] [address] Laboratory Report Ordering Provider Test Date Status KRISTAL ZEPEDA 01/26/2023 11:07:58 Final Observation Date Value Abnormality Reference (Units ) Status CEA 01/26/2023 11:07:58 38.9 Above high normal <= 5.2 (ng/mL) Final Performing Location [facility] - [address] [place] [address]
--- OUTSIDE RECORDS SUMMARY | 2023-05-29 14:19 | External Medical Summary | Summary of Care ---
Author Name Unknown Organization [facility] Address [address] [place] [address] Phone [phone] Care Team Providers Care Bowling Ball Mold Assembler Name Role Phone Escobar Iglesias DO Primary Care Provider Reason for Visit * Reason Onset Date Comments Advice 02/05/2023 Eli Finch Encounter Details Date Type Department Care Team Description 02/05/2023 Telephone Hematology/Oncology, [facility] [address] [place] [address] Eli Finch CRNP [address] [place] [address] Advice (Eli Finch) Allergies Active [...] HCl 0.1 % Nasal Solution Administer 1 [place] into nostril in the morning and 1 [place] before bedtime. 0 Active Escitalopram Oxalate 10 [...] schedule STAT BMP/ US at either or [facility]. Thanks! * Telephone Encounter - OSIRIS Dickey - 02/05/2023 2:31 PM EDT Pts Marlen called in stating that the pt was placed on water pills by Eli Finch. She states the pt is still having swelling in his belly and they would like to speak to a nurse regarding.She is asking for a return call as soon as possible to discuss. [phone] documented in this encounter Plan of Treatment Upcoming Encounters Date Type Specialty Care Team Description 02/09/2023 Laboratory Laboratory Alejandrina, Lab Scenery [address] [place] [address] 02/10/2023 Office Visit Hematology Oncology Eli Finch CRNP [address] [place] [address] 02/10/2023 Hem/Onc Treatment Hematology Oncology Alejandrina, Chair 1 Hem Onc Scenery [address] [place] [address] 03/18/2023 Telemedicine Palliative Medicine Eli Mckeon CRNP [address] [place] [address] 06/25/2023 Telemedicine Gastroenterology Andreea Goodman DO [address] [place] [address] Scheduled Orders Name Type Priority Associated Diagnoses [...] this encounter Medical Devices Implanted Type Area Placement Manager Device Identifier Shelf Expiration Date Model / Serial / Lot Power Port 8fr Sngl Lumen Plas - [id number] Implanted:Qty : 1 on 10/22/2022 by James Baeza DO at OR [facility] Right: Chest CR BARD : PERIPHERAL VASCULAR [id number] 02/25/2024 [id number] / / [id number] documented as of this encounter Visit Diagnoses Diagnosis 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 Question Answer Comments Discussion of Advance Directives occurred with: Patient Care Teams Bowling Ball Mold Assembler Relationship Specialty Start Date End Date Escobar Iglesias DO [address] [place] [address] PCP - General Family Medicine 10/07/22 documented as of this encounter
--- OUTSIDE RECORDS SUMMARY | 2023-05-29 14:19 | External Medical Summary | Summary of Care ---
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); Encounter for antineoplastic chemotherapy; Iron deficiency anemia due to chronic blood loss; Hepatitis B core antibody positive; Malignant ascites; Edema of right lower extremity; Acute deep vein thrombosis (DVT) of iliac vein of right lower extremity (HCC) Allergies Active Allergy Reactions Severity Noted Date Comments Prochlorperazine Edema face/lips/tongue High 023 BODY DYSFUNCTION documented as of this encounter (statuses as of 01/29/2023) Medications Medication Sig Dispensed Refills Start Date [...] HCl 0.1 % Nasal Solution Administer 1 Vermillion into nostril in the morning and 1 Vermillion before bedtime. 0 Active Escitalopram Oxalate 10 [...] 01/16/2023 Active Mirtazapine 30 MG Oral Tablet (Remeron)Indicati [...] twice daily 50 Tablet 2 01/27/2023 Active Losartan Potassium-HCTZ 100-25 MG Oral Tablet Take 1 Tablet by mouth in the morning. 0 3 Discontinue d(Medicatio n List Clean Up) Potassium Chloride Sherice ER 10 MEQ Oral Tablet Extended ReleaseIndication s:Malignant neoplasm of transverse colon (HCC),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),Hypokalemia Take 1 Tablet by mouth in the morning and 1 Tablet before bedtime. 60 Tablet 2 01/06/2023 3 Discontinue d(Medicatio n List Clean Up) Hospital, Clinic, or Other Facility Administered Medication Ordered Dose Route Frequency Start Date End Date Status Fluorouracil (5-Fu) 4,175 mg in NSS 138 mL infusion 4175 mg IV CONTINUOUS 01/27/2023 01/29/2023 Ended documented as of this encounter (statuses as of 01/29/2023) Active Problems Problem Noted Date Dehydration 01/05/2023 Hypokalemia 01/05/2023 Metastasis to liver 10/07/2022 Malignant neoplasm of transverse colon 0 10/07/2022 Encounter for antineoplastic chemotherap y 10/07/2022 JOY (generalized anxiety disorder) 09/26 Severe protein-energy malnutrition 09/25 Abdominal mass, right upper quadrant Colonic mass 09/24/2022 Elevated LFTs 09/24/2022 Iron deficiency anemia 09/24/2022 ANTHONY (acute kidney injury) 09/24/2022 documented as of this encounter (statuses as of 01/29/2023) Social History Tobacco Use Types Packs/Day Years [...] Sign Reading Time Taken Comments Blood Pressure 112/75 01/27/2023 11:28 AM EDT Pulse 96 01/27/2023 11:28 AM EDT Temperature 35.8 C (96.5 F) 01/27/2023 1 1:28 AM EDT Respiratory Rate 18 01/27/2023 11:2 8 AM EDT Oxygen Saturation 96% 01/27/2023 11: 28 AM EDT Inhaled Oxygen Concentration - - Weight 77.9 kg (171 lb 11.2 oz) 023 11:28 AM EDT Height - - Body Mass Index 27.73 10/22/2022 12:03 PM EDT documented in this [...] as of this encounter Progress Notes * SHELTON Pollard - 01/27/2023 11:30 AM EDT Hematology/Oncology Outpatient Clinic note [facility] [address] [facility] [place] [address] Name: Escobar Reagan Date: 01/27/2023 CHIEF COMPLAINT: Escobar Reagan is a 77 year old male here today for f/u visit today. Patient of Dr. Jeff Robbins. From Patient chart confirmed with patient. HEMATOLOGY/ONCOLOGY DIAGNOSIS :Transverse colon adenocarcinoma -liver metastasis -multiple lung nodules which are suspicious for metastatic disease -CEA level at diagnosis around 2200 range (late August 2022) -NGS checkup: -TMB 10.3 which is medium high -MSI stable -no actionable mutation -KRAS, NRAS --> negative -BRAF negative Mu-ism. Iron deficiency. DATE OF DIAGNOSIS: 09/25/22 TREATMENT HISTORY: IV [...] partial response noted. HISTORY OF PRESENT ILLNESS: Escobar Reagan is a 77 year old male with a history as outlined above. Currently here for f/u visit today and consideration for C8D1 of treatment. Last week had a mild fall and twisted his RLE underneath him. Having a mild ache in his RLE and having swelling in RLE from hip down to foot. Is able to put weight on it. Has a bruise on his right ankle. Tolerating treatment well. No noticeable side effects so far. Denies oral ulceration, nausea/vomiting. Denies diarrhea. Denies skin changes. Taking senokot and moving bowels daily. Drinking 1-2 protein supplements a day. Is not drinking enough water. Stopped his BP medication and has had no further hypotensive episodes. No past medical history on file. Past Surgical History: Procedure Laterality Date INSER TUNN ACC DEV;5 YRS/OLDER Right 10/22/2022 INSERT TUNNELED CENTRAL VENOUS ACCESS WITH SUBQ PORT performed by James Baeza DO at OR [facility] IR BIOPSY 09/25/2022 Social History Socioeconomic History [...] Current Outpatient Medications Medication Sig Dispense Refill Losartan Potassium-HCTZ 100-25 MG Oral Tablet Take 1 Tablet by mouth in the morning. (Patient not taking: Reported on 01/08/2023) Ascorbic Acid 500 MG Oral Tablet Take [...] HCl 0.1 % Nasal Solution Administer 1 Vermillion into nostril in the morning and 1 Vermillion before bedtime. Escitalopram Oxalate 10 MG Oral Tablet (Lexapro) Take 1 Tablet by mouth in the morning. Loperamide HCl 2 MG Oral Capsule (Imodium) Take 1 Capsule by mouth 4 times a day as needed for Diarrhea. 60 Capsule 0 Potassium Chloride Sherice ER 10 MEQ Oral Tablet Extended Release Take 1 Tablet by mouth in the morning and 1 Tablet before bedtime. 60 Tablet 2 Buprenorphine 5 MCG/HR Transdermal Patch Weekly Place [...] 1 Tablet before bedtime. 270 Tablet 0 Current Facility-Administered Medications Medication Dose Route Frequency Provider Last Rate Last Admin Fluorouracil (5-Fu) 4,175 mg in NSS 138 mL infusion 4,175 mg Intravenous Continuous Jeff Robbins MD Facility-Administered Medications Ordered in Other Visits Medication Dose Route Frequency Provider Last Rate Last Admin Fluorouracil (5-Fu) 4,425 mg for Home Infusion 2,400 mg/m2 (Treatment Plan Recorded) Intravenous Once Jeff Robbins MD REVIEW OF SYSTEMS: See HPI - otherwise negative OBJECTIVE: Filed Vitals: 01/27/23 1128 BP: 112/75 Pulse: 96 Resp: 18 Temp: 35.8 C (96.5 F) TempSrc: Tympanic SpO2: 96% Weight: 77.9 kg (171 lb 11.2 oz) Wt Readings from Last 5 Encounters: 01/27/23 77.9 kg (171 lb 11.2 oz) 01/13/23 72.7 kg (160 lb 3.2 oz) 01/06/23 70.4 kg (155 lb 4.8 oz) 12/23/22 70.2 kg (154 lb 12.8 oz) 12/09/22 71.4 kg (157 lb 6.4 oz) PHYSICAL EXAM: ECOG: Performance Status 1 = [...] oriented x 4, ambulating with walker LABS: Results for orders placed or performed in visit on 01/26/23 COMPREHENSIVE METABOLIC PANEL Result Value Ref Range BUN 23 (H) 6 - 20 mg/dL Creatinine 1.0 0.6 - 1.2 mg/dL Estimated Glomerular Filtration Rate 78 >=60 mL/min Sodium 138 135 - 146 mmol/L Potassium 4.7 3.5 - 5.1 mmol/L Chloride 107 98 - 107 mmol/L CO2 24 22 - 32 mmol/L Anion Gap 7 7 - 15 mmol/L Glucose 100 70 - 120 mg/dL Albumin 2.3 (L) 3.8 - 5.0 g/dL AST 47 10 - 50 U/L Alkaline Phosphatase 422 (H) 35 - 130 U/L Bilirubin, Total 0.7 <=1.2 mg/dL Calcium 8.3 (L) 8.4 - 10.2 mg/dL Protein 5.4 (L) 6.0 - 8.3 g/dL ALT 21 10 - 50 U/L CBC Result Value Ref Range WBC 5.10 4.00 - 10.80 K/uL RBC 2.95 4.50 - 5.25 M/uL HGB 10.5 (L) 14.0 - 16.8 g/dL HCT 32.3 (L) 40.0 - 48.4 % MCV 109.5 82.0 - 99.5 fL MCH 35.6 27.0 - 34.0 pg MCHC 32.5 32.0 - 36.0 g/dL RDW 20.6 11.5 - 15.5 % PLT 162 140 - 400 K/uL MPV 10.0 6.6 - 11.1 fL DIFFERENTIAL, AUTOMATED Result Value Ref Range WBC 5.10 4.00 - 10.80 K/uL Neutrophils % 58.4 40.0 - 75.0 % Lymphocytes % 19.6 18.0 - 42.0 % Monocytes % 20.4 (H) 1.0 - 11.0 % Eosinophils % 0.8 0.0 - 6.0 % Basophils % 0.8 0.0 - 2.0 % Absolute Neutrophils 2.98 1.80 - 7.70 K/uL Absolute Lymphocytes 1.00 1.00 - 4.80 K/ul Absolute Monocytes 1.04 0.00 - 1.10 K/uL Absolute Eosinophils 0.04 0.00 - 0.70 K/uL Absolute Basophils 0.04 0.00 - 0.20 K/uL IMPRESSION/PLAN: 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 Reviewed with Dr. Jeff Robbins: would like to start patient on diuretic therapy. Prescription placed for Hctz 25 mg daily and Spironolactone 50 mg daily. Patient aware to stop potassium supplement. Check Hepatitis B surface antigen every 3 months while on chemotherapy - next due in March Per hepatology if HBsAg becomes positive, start entecavir 0.5 mg once daily and refer patient back to hepatology. Avoid alcohol, and minimize hepatotoxins as much as possible. Will continue to follow CEA monthly Plan for restaging CT scans s/P C12 Continue to follow with palliative care Will consider addition of Xgeva/Zometa for prevention of skeletal related complications in setting of sclerotic bone lesions Edema RLE STAT venous duplex ordered High clinical suspicion for VTE. Discussed anticoagulation with patient including indication and possible adverse effects. Patient verbalized understanding. ADDENDUM: Received call from ultrasound. Patient positive for acute VTE from external iliac to popliteal veinof RLE. Prescription sent for Eliquis 10 mg BID x 7 days and then 5 mg BID. Patient aware to start today. RTC in 2 weeks with provider for chemo return SHELTON Powers * Dina Hernández LPN - 01/27/2023 11:28 AM EDT Patient identifed by name and birthdate [...] it for you? ALREADY ACTIVE Filed Vitals: 01/27/23 1128 BP: 112/75 Pulse: 96 Resp: 18 Temp: 35.8 C (96.5 F) TempSrc: Tympanic SpO2: 96% Weight: 77.9 kg (171 lb 11.2 oz) Patient states that he should not have any med changes, but organizes his pills and he "has noidea what he takes". documented in this encounter Plan of Treatment Upcoming Encounters Date Type Specialty Care Team Description 02/09/2023 Laboratory Laboratory [facility] [address] [place] [address] 02/10/2023 Office Visit Hematology Oncology Eli Finch CRNP [address] [place] [address] 02/10/2023 Hem/Onc Treatment Hematology Oncology [facility], Chair 1 Hem [facility] [address] [place] [address] 03/18/2023 Telemedicine Palliative Medicine Eli Mckeon CRNP [address] [place] [address] 06/25/2023 Telemedicine Gastroenterology Andreea Goodman DO [address] [place] [address] Health Maintenance Due Date Last Done Comments [...] this encounter Medical Devices Implanted Type Area Crackling Press Operator Device Identifier Shelf Expiration Date Model / Serial / Lot Power Port 8fr Sngl Lumen Plas - [id number] Implanted:Qty : 1 on 10/22/2022 by James Baeza DO at OR [facility] Right: Chest CR BARD : PERIPHERAL VASCULAR [id number] 02/25/2024 [id number] / / [id number] documented as of this encounter Procedures Procedure Name Priority Date/Time Associated Diagnosis Comments VASC DUPLEX VENOUS LE UNILAT STAT 01/27/2023 3:13 PM EDT Edema of right lower extremity FOLIC ACID Routine 01/26/2023 11:07 AM EDT Iron deficiency anemia due to chronic blood loss IRON SCREEN, INCLUDING TIBC Routine 01/26/2023 11:07 AM EDT Iron deficiency anemia due to chronic blood loss FERRITIN Routine 01/26/2023 11:07 AM EDT Iron deficiency anemia due to chronic blood loss VITAMIN B12 Routine 01/26/2023 11:07 AM EDT Iron deficiency anemia due to chronic blood loss CEA Routine 01/26/2023 11:07 AM EDT 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 PHYSICIAN REPORT: LOWER EXTREMITY VENOUS DUPLEX EXAMINATION Immediately before proceeding with the vascular lab procedure reported below, the identity of the patient, the correct exam and the correct procedural site were identified. Color flow Doppler, spectral analysis, and transducer compression techniques were applied during this ultrasound image examination. RIGHT LOWER EXTREMITY Right external iliac vein has phasic flow, and echogenic. Right common femoral vein has phasic flow, is partly compressible and echogenic. Right femoral vein has continuous flow, is partly compressible and echogenic. Right popliteal vein has no flow, is non-compressible and echogenic. Right posterior tibial vein demonstrates no evidence of thrombosis. Right peroneal vein demonstrates evidence of thrombosis. CONCLUSIONS: Acute deep venous thrombosis in the right lower extremity in the segments as noted above. Preliminary report was given to SHELTON Pollard on 01-27-2023 at 2:43pm . Eli [facility] * (ABNORMAL) CEA (01/26/2023 11:07 AM EDT) CEA 38.9(H) <=5.2 ng/mL 01/27/2023 8:56 PM EDT [facility] [place] Venous blood specimen / Unknown Venipuncture / Unknown 01/26/2023 11:07 AM EDT 01/26/2023 11:07 AM EDT Eli Nathaly [facility] BLOOD ORDER RADHA Performing Organization Address City/[facility]/ZIP Co de Phone Number [facility] [address] [place] [address] * FOLIC ACID (01/26/2023 11:07 AM EDT) Folic Acid >20.0 >4.5 ng/mL 01/27/2023 9:35 PM EDT LAB[facility]ORY [facility] Blood Venous blood specimen / Unknown Venipuncture / Unknown 01/26/2023 11:07 AM EDT 01/26/2023 11:07 AM EDT Eli [facility] LAB BLOOD ORDER RADHA Performing Organization Address [facility] Co de Phone Number [facility] [address] [place] [address] * VITAMIN B12 (01/26/2023 11:07 AM EDT) Vitamin B12 1,213 232 - 1,245 pg/mL 01/27/2023 9:35 PM EDT [facility] Blood Venous blood specimen / Unknown Venipuncture / Unknown 01/26/2023 11:07 AM EDT 01/26/2023 11:07 AM EDT Eli [facility] LAB BLOOD ORDER RADHA Performing Organization Address City/[facility]/ZIP Co de Phone Number [facility] [address] [place] [address] * (ABNORMAL) IRON SCREEN, INCLUDING TIBC (01/26/2023 11:07 AM EDT) Iron 61 45 - 176 ug/dL 01/27/2023 8:46 PM EDT [facility] Iron Binding Capacity 206(L) 250 - 425 ug/dL 01/27/2023 8:46 PM EDT [facility] Transferrin Saturation Percent 30 15 - 55 % 01/27/2023 8:46 PM EDT [facility] Blood Venous blood specimen / Unknown Venipuncture / Unknown 01/26/2023 11:07 AM EDT 01/26/2023 11:07 AM EDT Eli Finch [facility] LAB BLOOD ORDER RADHA [facility] [address] [place] [address] * (ABNORMAL) FERRITIN (01/26/2023 11:07 AM EDT) Ferritin 1,004(H) 30 - 400 ng/mL 01/27/2023 9:35 PM EDT [facility] [place] Venous blood specimen / Unknown Venipuncture / Unknown 01/26/2023 11:07 AM EDT 01/26/2023 11:07 AM EDT Eli Finch SHELTON LAB BLOOD ORDER RADHA Performing Organization Address City/[facility]/ZIP Co de Phone Number [facility] [address] [place] [address] documented in this encounter Visit Diagnoses Diagnosis Malignant neoplasm of transverse colon (HCC)- Primary Malignant 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) Secondary malignant neoplasm of liver Encounter for antineoplastic chemotherapy Iron deficiency anemia due to chronic blood loss Iron deficiency anemia secondary to blood loss (chronic) Hepatitis B core antibody positive Other and unspecified nonspecific immunological findings Malignant ascites Edema of right lower extremity Edema Acute deep vein thrombosis (DVT) of iliac vein of right lower extremity (HCC) documented in this encounter Advance Directives Documents on File Type Date Recorded Patient Director Of Software Engineering Expl 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 Question Answer Comments Discussion of Advance Directives occurred with: Patient Care Teams Computer Forensics Investigator Relationship Specialty Start Date End Date Escobar Iglesias, DO [address] [place] [address] PCP - General Family Medicine 10/07/22 documented as of this encounter
--- OUTSIDE RECORDS SUMMARY | 2023-05-29 14:19 | External Medical Summary | Summary of Care ---
Author Name Unknown Organization [facility] Address [address] [place] [address] Phone [phone] Care Team Providers Care Route Manager Name Role Phone Escobar Iglesias DO Primary Care Provider Encounter Details Date Type Department Care Team Description 01/27/2023 Orders Only [facility] [address] [place] [address] Jeff Robbins MD [address] [place] [address] Allergies Active Allergy Reactions Severity Noted Date Comments Prochlorperazine Edema face/lips/tongue High 023 BODY DYSFUNCTION documented as of this encounter (statuses as of 01/27/2023) Medications Medication Sig Dispensed Refills Start Date End Date Status Losartan Potassium-HCTZ 100-25 MG Oral Tablet Take 1 Tablet by mouth in the morning. 0 Active Ascorbic Acid 500 MG Oral Tablet Take [...] HCl 0.1 % Nasal Solution Administer 1 Dexter into nostril in the morning and 1 Dexter before bedtime. 0 Active Escitalopram Oxalate 10 MG Oral Tablet (Lexapro) Take 1 Tablet by mouth in the morning. 0 Active Loperamide HCl 2 MG Oral Capsule (Imodium)Indication s:Chemotherapy induced diarrhea Take 1 Capsule by mouth 4 times a day as needed for Diarrhea. 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 60 Tablet 2 01/06/2023 Active Buprenorphine 5 MCG/HR Transdermal Patch Weekly [...] before bedtime. 270 Tablet 0 01/19/2023 Active Hospital, Clinic, or Other Facility Administered Medication Ordered Dose Route Frequency Start Date End Date Status Fluorouracil (5-Fu) 4,175 mg in NSS 138 mL infusion 4175 mg IV CONTINUOUS 01/27/2023 01/29/2023 Active documented as of this encounter (statuses as of 01/27/2023) Active Problems Problem Noted Date Dehydration 01/05/2023 Hypokalemia 01/05/2023 Metastasis to liver 10/07/2022 Malignant neoplasm of transverse colon 0 10/07/2022 Encounter for antineoplastic chemotherap y 10/07/2022 JOY (generalized anxiety disorder) 09/26 Severe protein-energy malnutrition 09/25 Abdominal mass, right upper quadrant Colonic mass 09/24/2022 Elevated LFTs 09/24/2022 Iron deficiency anemia 09/24/2022 ANTHONY (acute kidney injury) 09/24/2022 documented as of this encounter (statuses as of 01/27/2023) Social History Tobacco Use Types Packs/Day Years [...] Encounters Date Type Specialty Care Team Description 01/27/2023 Office Visit Hematology Oncology Eli Finch CRNP [address] [address] 01/27/2023 Hem/Onc Treatment Hematology Oncology Dixon, Chair 6 Hem Onc Scenery [address] [place] [address] 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)*; Malignant neoplasm of transverse colon (HCC); Encounter for antineoplastic chemotherapy 03/18/2023 Telemedicine Palliative Medicine Eli Mckeon CRNP [address] [address] 06/25/2023 Telemedicine Gastroenterology Andreea Goodman DO [address] [place] [address] Health Maintenance Due Date Last Done Comments [...] encounter Medical Devices Implanted Type Area Manager Of Corporate Communications Device Identifier Shelf Expiration Date Model / Serial / Lot Power Port 8fr Sngl Lumen Plas - [id number] Implanted:Qty : 1 on 10/22/2022 by James Baeza DO at OR [facility] Right: Chest CR BARD : PERIPHERAL VASCULAR [id number] 02/25/2024 [id number] / / [id number] documented as of this encounter Advance Directives Documents on File Type Date Recorded Patient Infrastructure Tech Expl 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 Question Answer Comments Discussion of Advance Directives occurred with: Patient Care Teams Route Manager Relationship Specialty Start Date End Date Escobar Iglesias DO [address] [place] [address] PCP - General Family Medicine 10/07/22 documented as of this encounter
--- OUTSIDE RECORDS SUMMARY | 2023-05-29 14:19 | External Medical Summary | Summary of Care ---
Author Name Unknown Organization [facility] Address [address] [place] [address] Phone [phone] Care Team Providers Care Line Installation Supervisor Name Role Phone Escobar Iglesias DO Primary Care Provider Reason for Visit * Reason Comments Procedure Home 5FU pump discon nect/port flush * Episode Based Medications (Routine) - Authorized Specialty Diagnoses / Procedures Referred By Barbra t Referred To Contact Diagnoses 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) Encounter for antineoplastic chemotherapy Procedures NV LEUCOVORIN CALCIUM INJECTION NV PALONOSETRON HCL NV FLUOROURACIL INJECTION NV OXALIPLATIN Jeff Robbins MD [address] [place] [address] Anc Hem/Onc Scenery [place] 200 [facility] [place] [address] Referral ID Status Reason Start Date Expiration Date V isits Requested Visits Authorized [id number] Authorized 01/26/2023 04/25/2099 999 999 Encounter Details Date Type Department Care Team Description 01/29/2023 Immunization/I njection Hematology/Oncology Treatment, [place] [address] [place] [address] [place] [address] Nurse, Med 4 200 [facility] [place] [address] 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)*; Malignant neoplasm of transverse colon (HCC); Encounter for antineoplastic chemotherapy Allergies Active Allergy Reactions Severity Noted Date [...] 0.1 % Nasal Solution Administer 1 [place] into nostril in the morning and 1 [place] before bedtime. 0 Active Escitalopram Oxalate 10 [...] Nursing Notes * Rachel Rogers RN - 01/29/2023 11:34 AM EDT Chair 3 Pt arrives for home 5FU pump disconnect. Pt states he's doing well but is tired. He is resting as needed. He denies any other complaints today. Pump disconnected and VAD flushed per protocol by Rina Barkley RN. Pederson needle removed. Patient tolerated treatment well and was discharged in stable condition. documented in this encounter Plan of Treatment Upcoming Encounters Date Type Specialty Care Team Description 02/09/2023 Laboratory Laboratory [place], Lab Scenery 200 [facility] [place] [address] 02/10/2023 Office Visit Hematology Oncology Eli Finch CRNP [address] [place] [address] 02/10/2023 Hem/Onc Treatment Hematology Oncology Alejandrina, Chair 1 Hem Onc Scenery [address] [place] [address] 03/18/2023 Telemedicine Palliative Medicine Eli Mckeon CRNP [address] [place] [address] 06/25/2023 Telemedicine Gastroenterology Andreea Goodman DO [address] [place] [address] Health Maintenance Due Date Last Done Comments [...] this encounter Medical Devices Implanted Type Area Laundry Tub Maker Device Identifier Shelf Expiration Date Model / Serial / Lot Power Port 8fr Sngl Lumen Plas - [id number] Implanted:Qty : 1 on 10/22/2022 by James Baeza, at OR [facility] Right: Chest CR BARD : PERIPHERAL VASCULAR [id number] 02/25/2024 [id number] / / [id number] documented as of this encounter Visit Diagnoses [...] PRN Other, IV Flush, Starting on Mamie 01/29/23 at 1112, Until Thu01/30/23 at 1111, For 24 hours, Do not flush if lock, PICC, or central line not in place; IV infusing or unable to flush. Given 01/29/2023 11:28 AM EDT 500 Units sodium chloride 0.9 % flush central line 10 mL 10 mL, IV Push, PRN Other, IV Flush, Starting on Mamie 01/29/23 at 1112, Until Thu01/30/23 at 1111, For 24 hours, Do not flush if lock, PICC, or central line not in place; IV infusing or unable to flush. Given 01/29/2023 11:28 AM EDT 10 mL documented in this encounter Advance Directives Documents on File Type Date Recorded Patient Leather Sprayer Expl 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 Question Answer Comments Discussion of Advance Directives occurred with: Patient Care Teams Line Installation Supervisor Relationship Specialty Start Date End Date Escobar Iglesias, DO [address] [place] [address] PCP - General Family Medicine 10/07/22 documented as of this encounter
--- OUTSIDE RECORDS SUMMARY | 2023-05-29 14:19 | External Medical Summary | Summary of Care ---
Author Name Unknown Organization [facility] Address [address] [place] [address] Phone [phone] Care Team Providers Care Service Desk Agent Name Role Phone Harris Escobar Streeterony Primary Care Provider Reason for Visit * Reason Onset Date Comments Advice 01/27/2023 Dr. Rosendo orr Appointment 01/27/2023 Encounter Details Date Type Department Care Team Description 01/27/2023 Telephone Hematology/Oncology [facility] [address] [place] [address] Services, Scheduling [address] [place] [address] Advice (Dr. Robbins patient ); Appointment Allergies Active Allergy Reactions Severity Noted Date [...] HCl 0.1 % Nasal Solution Administer 1 [place] into nostril in the morning and 1 [place] before bedtime. 0 Active Escitalopram Oxalate 10 [...] the morning. 30 Tablet 2 01/27/2023 Active Hospital, Clinic, or [...] * Telephone Encounter - OSIRIS Corbett - 01/27/2023 1:26 PM EDT Patient is scheduled for an [facility] at [facility] Patient is going today 01/27/23 @2:30pm. * Telephone Encounter - OSIRIS Haney - 01/27/2023 1:23 PM EDT [facility] R [facility] called regarding the prescription they received for Oonpljvshcqcmymhckd65 mg from Eli Finch. He advised the patient is currently on Losartan-HCTZ that was prescribed by Dr. Iglesias. He was inquring if the patient is to take both of these medications or if one was being discontinued. Please contact Jose R at [phone]. Thank you. documented in this encounter Plan of Treatment Upcoming Encounters Date Type Specialty Care Team Description 01/27/2023 Imaging Radiology 01/29/2023 Immunization/Injection Hematology Oncolog y Nurse, Med 4 [address] [place] [address] 02/09/2023 Laboratory Laboratory [place], Lab Scenery [address] [place] [address] 02/10/2023 Office Visit Hematology Oncology Eli Finch CRNP [address] [address] 02/10/2023 Hem/Onc Treatment Hematology Oncology Alejandrina, Chair 1 Hem Onc Scenery [address] [place] [address] 03/18/2023 Telemedicine Palliative Medicine Eli Mckeon CRNP [address] [place] [address] 06/25/2023 Telemedicine Gastroenterology Andreea Goodman, DO [address] [place] [address] Health Maintenance Due Date Last Done Comments [...] this encounter Medical Devices Implanted Type Area Ornamental Plasterer Helper Device Identifier Shelf Expiration Date Model / Serial / Lot Power Port 8fr Sngl Lumen Plas - [id number] Implanted:Qty : 1 on 10/22/2022 by James Baeza DO at OR [facility] Right: Chest CR BARD : PERIPHERAL VASCULAR [id number] 02/25/2024 [id number] / / [id number] documented as of this encounter Advance Directives Documents on File Type Date Recorded Patient Cashier Gambling Expl 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 Question Answer Comments Discussion of Advance Directives occurred with: Patient Care Teams Service Desk Agent Relationship Specialty Start Date End Date Escobar Iglesias DO [address] [place] [address] PCP - General Family Medicine 10/07/22 documented as of this encounter
--- OUTSIDE RECORDS SUMMARY | 2023-05-29 14:19 | External Medical Summary | Summary of Care ---
Author Name Unknown Organization [facility] Address [address] [place] [address] Phone [phone] Care Team Providers Care Rail Car Repairer Name Role Phone Escobar Iglesias DO Primary Care Provider Encounter Details Date Type Department Care Team Description 01/27/2023 Orders Only [facility] [address] [place] [address] Jeff Robbins MD [address] [place] [address] Allergies Active Allergy Reactions Severity Noted Date [...] HCl 0.1 % Nasal Solution Administer 1 [place] into nostril in the morning and 1 [place] before bedtime. 0 Active Escitalopram Oxalate 10 [...] Oncology Eli Finch CRNP [address] [place] [address] 01/27/2023 Hem/Onc Treatment Hematology Oncology [place], Chair 6 Hem Onc Scenery [address] [place] [address] 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)*; Malignant neoplasm of transverse colon (HCC); Encounter for antineoplastic chemotherapy 03/18/2023 Telemedicine Palliative Medicine Eli Mckeon CRNP [address] [place] [address] 06/25/2023 Telemedicine Gastroenterology Andreea Goodman DO [address] [place] [address] Health Maintenance Due Date Last Done Comments [...] this encounter Medical Devices Implanted Type Area Pharmacy Tech Customer Service Device Identifier Shelf Expiration Date Model / Serial / Lot Power Port 8fr Sngl Lumen Plas - [id number] Implanted:Qty : 1 on 10/22/2022 by James Baeza DO at OR [facility] Right: Chest CR BARD : PERIPHERAL VASCULAR [id number] 02/25/2024 [id number] / / [id number] documented as of this encounter Advance Directives Documents on File Type Date Recorded Patient Geriatrics Physician Expl 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 Question Answer Comments Discussion of Advance Directives occurred with: Patient Care Teams Rail Car Repairer Relationship Specialty Start Date End Date Escobar Iglesias DO [address] [place] [address] PCP - General Family Medicine 10/07/22 documented as of this encounter
--- OUTSIDE RECORDS SUMMARY | 2023-05-29 14:19 | External Medical Summary ---
Author Name Unknown Address Unknown Organization K01:[facility] [place] [address] [place] [address] Laboratory Report Ordering Provider Test Date Status KRISTAL ZEPEDA 01/26/2023 11:07:58 Final Observation Date Value Abnormality Reference (Units ) Status Vitamin B12 01/26/2023 11:07:58 [phone] (pg/mL) Final Performing Location [facility] - [address] [place] [address]
--- OUTSIDE RECORDS SUMMARY | 2023-05-29 14:19 | External Medical Summary ---
Author Name Unknown Address Unknown Organization K09:[facility] [place] [address] Laboratory Report Ordering Provider Test Date Status RASHAAD BARAHONA 01/26/2023 11:07:58 Final Observation Date Value Abnormality Reference (Units ) Status WBC, Total 01/26/2023 11:07:58 5.10 4.00-10.8 0 (K/uL) Final RBC 01/26/2023 11:07:58 2.95 4.50-5.25 (M/uL) Final Hemoglobin 01/26/2023 11:07:58 10.5 Below low normal 14 .0-16.8 (g/dL) Final HCT 01/26/2023 11:07:58 32.3 Below low normal 40. 0-48.4 (%) Final MCV 01/26/2023 11:07:58 109.5 82.0-99.5 (fL) Final MCH 01/26/2023 11:07:58 35.6 27.0-34.0 (pg) Final MCHC 01/26/2023 11:07:58 32.5 32.0-36.0 (g/dL) Final RDW 01/26/2023 11:07:58 20.6 11.5-15.5 (%) Final Platelets 01/26/2023 11:07:58 162 140-400 (K /uL) Final MPV 01/26/2023 11:07:58 10.0 6.6-11.1 ( fL) Final Performing Location [facility] [place] [address]
--- OUTSIDE RECORDS SUMMARY | 2023-05-29 14:19 | External Medical Summary ---
Author Name Unknown Address Unknown Organization K01:[facility] [place] [address] [place] [address] Laboratory Report Ordering Provider Test Date Status KRISTAL ZEPEDA 01/26/2023 11:07:58 Final Observation Date Value Abnormality Reference (Units ) Status Folic Acid 01/26/2023 11:07:58 >20.0 >4.5 (ng/ mL) Final Performing Location [facility] - [address] [place] [address]
--- OUTSIDE RECORDS SUMMARY | 2023-05-29 14:19 | External Medical Summary | Summary of Care ---
Author Name Unknown Organization [facility] Address [address] [place] [address] Phone [phone] Care Team Providers Care Coal Mine Inspector Name Role Phone Harris Escobar Streeterony Primary Care Provider Reason for Visit * Reason Onset Date Comments Advice 01/27/2023 Dr. Rosendo orr Appointment 01/27/2023 Encounter Details Date Type Department Care Team Description 01/27/2023 Telephone Hematology/Oncology [facility] [address] [place] [address] Services, Scheduling [address] [place] [address] Advice (Dr. Robbins patient ); Appointment Allergies [...] HCl 0.1 % Nasal Solution Administer 1 [place] into nostril in the morning and 1 [place] before bedtime. 0 Active Escitalopram Oxalate 10 [...] Telephone Encounter - Charisse Fink RN - 01/27/2023 3:30 PM EDT Reviewed with Eli and called Jose R. Advised Jose R that patient reported that he stopped taking this months ago. Jose R states that patient received a 90 day supply back in September, so that would make sense. He states that he has also been talking to Eli via TT. * Telephone Encounter - OSIRIS Corbett - 01/27/2023 1:26 PM EDT Patient is scheduled for an Ultrasound Vascular Duplex at [facility]. Patient is going today 01/27/23 @2:30pm. * Telephone Encounter - OSIRIS Haney - 01/27/2023 1:23 PM EDT Jose R with [facility] called regarding the prescription they received for Jligkrosdmlhpelpxie59 mg from Eli Finch. He advised the patient is currently on Losartan-HCTZ that was prescribed by Dr. Iglesias. He was inquring if the patient is to take both of these medications or if one was being discontinued. Please contact Jose R at [phone]. Thank you. documented in this encounter Plan of Treatment Upcoming Encounters Date Type Specialty Care Team Description 01/29/2023 Immunization/Injection Hematology Oncolog y Nurse, Med 4 [address] [place] [address] 02/09/2023 Laboratory Laboratory Alejandrina, Lab Scene 200 [facility] [place] [address] 02/10/2023 Office Visit Hematology Oncology Eli Finch CRNP [address] [place] [address] 02/10/2023 Hem/Onc Treatment Hematology Oncology [place], Chair 1 Hem Onc Scenery [address] [facility] [place] [address] 03/18/2023 Telemedicine Palliative Medicine Eli Mckeon CRNP [address] [place] [address] 06/25/2023 Telemedicine Gastroenterology Andreea Goodman, [address] [place] [address] Health Maintenance Due Date Last Done Comments [...] this encounter Medical Devices Implanted Type Area Affirmative Action Specialist Device Identifier Shelf Expiration Date Model / Serial / Lot Power Port 8fr Sngl Lumen Plas - [id number] Implanted:Qty : 1 on 10/22/2022 by James Baeza DO at OR [facility] Right: Chest CR BARD : PERIPHERAL VASCULAR [id number] 02/25/2024 [id number] / / [id number] documented as of this encounter Advance Directives Documents on File Type Date Recorded Patient Foreman/Pile Driving And Erection Expl 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 Question Answer Comments Discussion of Advance Directives occurred with: Patient Care Teams Coal Mine Inspector Relationship Specialty Start Date End Date Escobar Iglesias DO [address] [place] [address] PCP - General Family Medicine 10/07/22 documented as of this encounter
--- OUTSIDE RECORDS SUMMARY | 2023-05-29 14:19 | External Medical Summary ---
Author Name Unknown Address Unknown Organization K09:LAB[facility]ATORY [facility] [address] [place] [address] Laboratory Report Ordering Provider Test Date Status RASHAAD BARAHONA 01/26/2023 11:07:58 Final Observation Date Value Abnormality Reference (Units ) Status BUN 01/26/2023 11:07:58 23 Above high normal 6-20 (mg/dL) Final Creatinine 01/26/2023 11:07:58 1.0 0.6-1.2 (mg/dL) Final Glomerular filtration rate/1.73 sq M.predicted [Volume Rate/Area] in Serum, Plasma or Blood by Creatinine-based formula (CKD-EPI) 01/26/2023 11:07:58 78 >=60 (mL/min) Final eGFR is calculated based on the CKD-EPI 2020 equation SODIUM 01/26/2023 11:07:58 138 135-146 (m mol/L) Final Potassium 01/26/2023 11:07:58 4.7 3.5-5.1 (m mol/L) Final Cl 01/26/2023 11:07:58 107 98-107 (mm ol/L) Final CO2 01/26/2023 11:07:58 24 22-32 (mmo l/L) Final Anion gap 01/26/2023 11:07:58 7 7-15 (mmol /L) Final Glucose 01/26/2023 11:07:58 100 70-120 (mg /dL) Final Albumin 01/26/2023 11:07:58 2.3 Below low normal 3.8 -5.0 (g/dL) Final AST (Aspartate aminotransferase) 01/26/2023 11:07:58 47 10-50 (U/L) Fin al Alk Phos 01/26/2023 11:07:58 422 Above high normal 35 -130 (U/L) Final Bilirubin, Total 01/26/2023 11:07:58 0.7 <=1 .2 (mg/dL) Final Calcium 01/26/2023 11:07:58 8.3 Below low normal 8.4 -10.2 (mg/dL) Final Protein 01/26/2023 11:07:58 5.4 Below low normal 6.0 -8.3 (g/dL) Final ALT (Alanine aminotransferase) 01/26/2023 11:07:58 21 10-50 (U/L) Tres ordonez Performing Location LABORATORY [place] [address]
--- OUTSIDE RECORDS SUMMARY | 2023-05-29 14:19 | External Medical Summary | Summary of Care ---
Author Name Unknown Organization [facility] Address [address] [place] [address] Phone [phone] Care Team Providers Care Cooker Sulfate Name Role Phone Escobar Iglesias DO Primary Care Provider Reason for Visit * Reason Comments Outpatient Testing Encounter Details Date Type Department Care Team Description 01/26/2023 Laboratory Laboratory [facility] [address] [place] [address] [facility] Lab Scenery [address] [place] [address] 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); Malignant neoplasm of transverse colon (HCC) Allergies Active Allergy Reactions Severity Noted Date Comments Prochlorperazine Edema face/lips/tongue High 023 BODY DYSFUNCTION documented as of this encounter (statuses as of 01/26/2023) Medications Medication Sig Dispensed Refills Start Date [...] HCl 0.1 % Nasal Solution Administer 1 [place] into nostril in the morning and 1 [place] before bedtime. 0 Active Escitalopram Oxalate 10 [...] before bedtime. 270 Tablet 0 01/19/2023 Active documented as of this encounter (statuses as of 01/26/2023) Active Problems Problem Noted Date Dehydration 01/05/2023 Hypokalemia 01/05/2023 Metastasis to liver 10/07/2022 Malignant neoplasm of transverse colon 0 10/07/2022 Encounter for antineoplastic chemotherap y 10/07/2022 JOY (generalized anxiety disorder) 09/26 Severe protein-energy malnutrition 09/25 Abdominal mass, right upper quadrant Colonic mass 09/24/2022 Elevated LFTs 09/24/2022 Iron deficiency anemia 09/24/2022 ANTHONY (acute kidney injury) 09/24/2022 documented as of this encounter (statuses as of 01/26/2023) Social History Tobacco Use Types Packs/Day Years [...] Visit Hematology Oncology Eli Finch CRNP [address] [place] [address] 01/27/2023 Hem/Onc Treatment Hematology Oncology [place], Chair 6 Hem Onc Scenery [address] [facility] [address] 03/18/2023 Telemedicine Palliative Medicine Eli Mckeon CRNP [address] [place] [address] 06/25/2023 Telemedicine Gastroenterology Andreea Goodman DO [address] [place] [address] Pending Results Name Type Priority Associated Diagnoses Date /Time COMPREHENSIVE METABOLIC PANEL Lab STAT 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) 01/26/2023 11:07 AM EDT Health Maintenance Due Date Last [...] this encounter Medical Devices Implanted Type Area Fashion Styling Intern Device Identifier Shelf Expiration Date Model / Serial / Lot Power Port 8fr Sngl Lumen Plas - [id number] Implanted:Qty : 1 on 10/22/2022 by James Baeza DO at OR [facility] Right: Chest CR BARD : PERIPHERAL VASCULAR [id number] 02/25/2024 [id number] / / [id number] documented as of this encounter Procedures Procedure Name Priority Date/Time Associated Diagnosis Comments DIFFERENTIAL, AUTOMATED STAT 01/26/2023 11:07 AM EDT 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) CBC STAT 01/26/2023 11:07 AM EDT 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) CBC STAT 01/26/2023 11:07 AM EDT 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) documented in this encounter Results * (ABNORMAL) DIFFERENTIAL, AUTOMATED (01/26/2023 11:07 AM EDT) WBC 5.10 4.00 - 10.80 K/uL 01/26/2023 11:20 AM EDT [facility] 56-02 Neutrophils % 58.4 40.0 - 75.0 % 01/26/2023 11:20 AM EDT [facility] 56-02 Lymphocytes % 19.6 18.0 - 42.0 % 01/26/2023 11:20 AM EDT [facility] 56-02 Monocytes % 20.4(H) 1.0 - 11.0 % 01/26/2023 11:20 AM EDT [facility] 56-02 Eosinophils % 0.8 0.0 - 6.0 % 01/26/2023 11:20 AM EDT [facility] 56-02 Basophils % 0.8 0.0 - 2.0 % 01/26/2023 11:20 AM EDT [facility] 56-02 Absolute Neutrophils 2.98 1.80 - 7.70 K/uL 01/26/2023 11:20 AM EDT [facility] 56-02 Absolute Lymphocytes 1.00 1.00 - 4.80 K/ul 01/26/2023 11:20 AM EDT [facility] 56-02 Absolute Monocytes 1.04 0.00 - 1.10 K/uL 01/26/2023 11:20 AM EDT [facility] 56-02 Absolute Eosinophils 0.04 0.00 - 0.70 K/uL 01/26/2023 11:20 AM EDT [facility] 56-02 Absolute Basophils 0.04 0.00 - 0.20 K/uL 01/26/2023 11:20 AM EDT [facility] 56-02 Blood Venous blood specimen / Unknown Venipuncture / Unknown 01/26/2023 11:07 AM EDT 01/26/2023 11:07 AM EDT Jeff Robbins MD LAB BLOOD ORDERABLES [facility] [address] [place] [address] * (ABNORMAL) CBC (01/26/2023 11:07 AM EDT) WBC 5.10 4.00 - 10.80 K/uL 01/26/2023 11:[address] EDT [address] RBC 2.95 4.50 - 5.25 M/uL 01/26/2023 11:[address]T [address] HGB 10.5(L) 14.0 - 16.8 g/dL 01/26/2023 11:[address] HCT 32.3(L) 40.0 - 48.4 % 01/26/2023 11:[address] MCV 109.5 82.0 - 99.5 fL 01/26/2023 11:[address]T [address] MCH 35.6 27.0 - 34.0 pg 01/26/2023 11:[address] MCHC 32.5 32.0 - 36.0 g/dL 01/26/2023 11:[address]T [address] RDW 20.6 11.5 - 15.5 % 01/26/2023 11:[address] PLT 162 140 - 400 K/uL 01/26/2023 11:[address]T [address] MPV 10.0 6.6 - 11.1 fL 01/26/2023 11:[address] Blood Venous blood specimen / Unknown Venipuncture / Unknown 01/26/2023 11:07 AM EDT 01/26/2023 11:07 AM EDT Jeff Robbins MD LAB BLOOD ORDERABLES Performing Organization Address City/State/[facility] Co de Phone Number [place] [phone] [place] [address] documented in this encounter Visit Diagnoses Diagnosis 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) 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 Question Answer Comments Discussion of Advance Directives occurred with: Patient Care Teams Cooker Sulfate Relationship Specialty Start Date End Date Escobar Iglesias, DO [address] [place] [address] PCP - General Family Medicine 10/07/22 documented as of this encounter
--- OUTSIDE RECORDS SUMMARY | 2023-05-29 14:19 | External Medical Summary | Summary of Care ---
Author Name Unknown Organization [facility] Address [address] [place] [address] Phone [phone] Care Team Providers Care Director Of Vocational Training Name Role Phone Escobar Iglesias DO Primary Care Provider Reason for Visit * Reason Onset Date Comments Advice 02/05/2023 Eli Finch Encounter Details Date Type Department Care Team Description 02/05/2023 Telephone Hematology/Oncology, [facility] [address] [place] [address] Eli Finch CRNP [address] [place] [address] Advice (Eli Finch) Allergies Active [...] HCl 0.1 % Nasal Solution Administer 1 [place] into nostril in the morning and 1 [place] before bedtime. 0 Active Escitalopram Oxalate 10 [...] Miscellaneous Notes * Telephone Encounter - OSIRIS Dickey - 02/05/2023 2:31 PM EDT Pts Marlen called in stating that the pt was placed on water pills by Eli Finch. She states the pt is still having swelling in his belly and they would like to speak to a nurse regarding.She is asking for a return call as soon as possible to discuss. [phone] documented in this encounter Plan of Treatment Upcoming Encounters Date Type Specialty Care Team Description 02/09/2023 Laboratory Laboratory Alejandrina, Lab Scenery [address] [place] [address] 02/10/2023 Office Visit Hematology Oncology Eli Finch CRNP [address] [place] [address] 02/10/2023 Hem/Onc Treatment Hematology Oncology Alejandrina, Chair 1 Hem Onc Scenery [address] [place] [address] 03/18/2023 Telemedicine Palliative Medicine Eli Mckeon CRNP [address] [place] [id number] 06/25/2023 Telemedicine Gastroenterology Andreea Goodman DO [address] [place] [address] Health Maintenance Due Date Last Done Comments [...] this encounter Medical Devices Implanted Type Area Solutions Sales Executive Device Identifier Shelf Expiration Date Model / Serial / Lot Power Port 8fr Sngl Lumen Plas - [id number] Implanted:Qty : 1 on 10/22/2022 by James Baeza DO at OR [facility] Right: Chest CR BARD : PERIPHERAL VASCULAR [id number] 02/25/2024 [id number] / / [id number] documented as of this encounter Advance Directives Documents on File Type Date Recorded Patient Machine Filler Servicer Expl 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 Question Answer Comments Discussion of Advance Directives occurred with: Patient Care Teams Director Of Vocational Training Relationship Specialty Start Date End Date Escobar Iglesias DO [address] [place] [address] PCP - General Family Medicine 10/07/22 documented as of this encounter
--- OUTSIDE RECORDS SUMMARY | 2023-05-29 14:19 | External Medical Summary ---
Author Name Unknown Address Unknown Organization K01:[facility] [address] [place] [address] Laboratory Report Ordering Provider Test Date Status KATELYNKRISTAL 01/26/2023 11:07:58 Final Observation Date Value Abnormality Reference (Units ) Status Ferritin 01/26/2023 11:07:58 1004 Above high normal 30 -400 (ng/mL) Final Performing Location [facility] - [address] [place] [address]
--- OUTSIDE RECORDS SUMMARY | 2023-05-29 14:19 | External Medical Summary | Summary of Care ---
Author Name Unknown Organization [facility] Address [address] [place] [address] Phone [phone] Care Team Providers Care Dolly Operator Name Role Phone Escobar Iglesias DO Primary Care Provider Reason for Visit * Reason Comments Chemotherapy C8D1 Leuco/5FU 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) Encounter for antineoplastic chemotherapy Procedures [place] LEUCOVORIN CALCIUM INJECTION W[place] PALONOSETRON HCL W[place] FLUOROURACIL INJECTION W[place] OXALIPLATIN Jeff Robbins MD [address] [place] [address] Anc Hem/Onc Scenery Alejandrina [address] [place] [address] Referral ID Status Reason Start Date Expiration Date V isits Requested Visits Authorized [id number] Authorized 01/26/2023 04/25/2099 999 999 Encounter Details Date Type Department Care Team Description 01/27/2023 Hem/Onc Treatment Hematology/Oncology Treatment, [place] [address] [place] [address] Alejandrina, Chair 6 Hem Onc Scenery [address] [place] [address] 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)*; Malignant neoplasm of [...] HCl 0.1 % Nasal Solution Administer 1 [place] into nostril in the morning and 1 [place] before bedtime. 0 Active Escitalopram Oxalate 10 [...] before bedtime. 270 Tablet 0 01/19/2023 Active Losartan Potassium-HCTZ 100-25 MG Oral Tablet [...] Status Fluorouracil (5-Fu) 4,175 mg in NSS 230 mL infusion 4175 mg IV ONCE 01/12/2023 01/13/2023 Discontinued documented as of this encounter (statuses [...] Nursing Notes * Rachel Rogers RN - 01/27/2023 2:08 PM EDT Chair 11 Pt was seen by Zane PEOPLES today, see office notes. Will proceed with treatment. VAD accessed without difficulty, good blood return noted, flushed with NSS and fluids infusing. Safety and Risk for Injury Patient [...] barriers to meeting goals: ambulation with IV pole Stability of the patient: Moderately stable - low risk of patient condition declining or worsening Summary regarding today's goals: Met: Pt remained free of injury today. Patient tolerated treatment well and was connected to home 5FU infusion pump. He was discharged in stable condition. Coverage by Zane Solano RN. * Leonora De Leon RN - 01/26/2023 11:43 AM EDT Labs reviewed with ronda Holly phos trending up. Dr Robbins ok with treatment. documented in this encounter Plan of Treatment Upcoming Encounters Date Type Specialty Care Team Description 01/27/2023 Imaging Radiology Arrived 01/29/2023 Immunization/Injection Hematology Oncolog y Nurse, Med 4 [address] [place] [facility] [place] [address] 02/09/2023 Laboratory Laboratory Alejandrina, Lab Scenery [address] [place] [address] 02/10/2023 Office Visit Hematology Oncology Stef Eli LemonSHELTON fabian [address] [place] [address] 02/10/2023 Hem/Onc Treatment Hematology Oncology Alejandrina, Chair 1 Hem Onc Scenery [address] [place] [address] 03/18/2023 Telemedicine Palliative Medicine MikeEli CRNP [address] [place] [address] 06/25/2023 Telemedicine Gastroenterology Andreea Goodman DO [address] [place] [address] Health Maintenance Due Date Last Done Comments [...] this encounter Medical Devices Implanted Type Area Office Messenger Helper Device Identifier Shelf Expiration Date Model / Serial / Lot Power Port 8fr Sngl Lumen Plas - [id number] Implanted:Qty : 1 on 10/22/2022 by James Baeza DO at OR [facility] Right: Chest CR BARD : PERIPHERAL VASCULAR [id number] 02/25/2024 [id number] / / [id number] documented as of this encounter Visit Diagnoses [...] ONCE PRN Other, Hypersensitivity Reaction, Starting on Thu01/27/23 at 1215, Until Thu01/28/23 at 1214, For 24 hours EPINEPHrine 1 MG/ML inj 0.3 mg 0.3 mg, Intramuscular, ONCE PRN Other, Hypersensitivity Reaction or Anaphylaxis, Starting on Thu01/27/23 at 1215, Until Thu01/28/23 at 1214, For 24 hours hEParin 100 UNIT/ML Lock Flush inj 500 Units 500 Units (5 mL), IV Lock, PRN Other, IV Flush, Starting on Thu01/27/23 at 1215, Until Thu01/28/23 at 1214, For 24 hours, Do not flush if lock, PICC, or central line not in place; IV infusing or unable to flush. Hydrocortisone Sod Suc (PF) (Solu-Cortef) inj 100 mg 100 mg, IV Push, ONCE PRN Other, Hypersensitivity Reaction, Starting on Thu01/27/23 at 1215, Until Thu01/28/23 at 1214, For 24 hours oxygen GAS Inhalation, OXYGEN, First dose on Thu01/27/23 at 1600, Until Discontinued, Device/Managed by: Low [...] Push, PRN Other, IV Flush, Starting on Thu01/27/23 at 1215, Until Thu01/28/23 at 1214, For 24 hours, Do not flush if [...] solution and volume., ONCE, 1 dose, On Thu01/27/23 at 1730 Start Infusion 01/27/2023 1:24 PM EDT 4,425 mg 3 mL/hr Fluorouracil (5-Fu) inj 725 mg 725 mg (rounded from 736 mg = 400 mg/m2 1.84 m2 Treatment Plan BSA from Recorded weight), IV Push, ONCE, 1 dose, On Thu01/27/23 at 1715 Given 01/27/2023 1:15 PM EDT 725 mg leucovorin calcium 750 mg in D5W 250 mL INFUSION 750 mg (rounded from 736 mg = 400 mg/m2 1.84 m2 Treatment Plan BSA from Recorded weight), IV Piggyback, ONCE, 1 dose, On Thu01/27/23 at 1515, Administer over 30 Minutes, Before 5-FU Start Infusion 01/27/2023 12:34 PM EDT 750 mg 500 mL/hr NSS infusion FOR HYDRATION Intravenous, at 50 mL/hr Administer over 10 Hours, ONCE, 1 dose, On Thu01/27/23 at 1300 Start Infusion 01/27/2023 12:20 PM EDT 500 mL 50 mL/hr ondansetron (Zofran) tab 8 mg 8 mg, Oral, ONCE, On Thu01/27/23 at 1300, For 1 dose Given 01/27/2023 12:34 PM EDT 8 mg documented in this encounter Advance Directives Documents on File Type Date Recorded Patient Braze Operator Expl 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 Question Answer Comments Discussion of Advance Directives occurred with: Patient Care Teams Dolly Operator Relationship Specialty Start Date End Date Escobar Iglesias, DO [address] [place] [address] PCP - General Family Medicine 10/07/22 documented as of this encounter
--- OUTSIDE RECORDS SUMMARY | 2023-05-29 14:19 | External Medical Summary ---
Author Name Unknown Address Unknown Organization K09:[facility] [place] [address] Laboratory Report Ordering Provider Test Date Status RASHAAD BARAHONA 01/26/2023 11:07:58 Final Observation Date Value Abnormality Reference (Units ) Status SYNC LEUKOCYTES IN BLOOD BY AUTOMATED COUNT 01/26/2023 11:07:58 5.10 4.00-10.80 (K/uL) Final Segs 01/26/2023 11:07:58 58.4 40.0-75.0 (%) Final Lymphs % 01/26/2023 11:07:58 19.6 18.0-42.0 (%) Final Monos 01/26/2023 11:07:58 20.4 Above high normal 1.0-11.0 (%) Final Eosinophils 01/26/2023 11:07:58 0.8 0.0-6.0 (%) Final Basos 01/26/2023 11:07:58 0.8 0.0-2.0 (%) Final Absolute Segs 01/26/2023 11:07:58 2.98 1.80-7.70 (K/uL) Final Lymphs, absolute 01/26/2023 11:07:58 1.00 1.00-4.80 (K/ul) Final Monos, Abs 01/26/2023 11:07:58 1.04 0.00-1.10 (K/uL) Final Eos, Abs 01/26/2023 11:07:58 0.04 0.00-0.70 (K/uL) Final Basos, Abs 01/26/2023 11:07:58 0.04 0.00-0.20 (K/uL) Final Performing Location [facility] [place] [address]
--- OUTSIDE RECORDS SUMMARY | 2023-05-29 14:20 | External Medical Summary | Summary of Care ---
Author Name Unknown Organization [facility] Address [address] [place] [address] Phone [phone] Care Team Providers Care Corporate Legal Secretary Name Role Phone Escobar Iglesias DO Primary Care Provider Reason for Visit * Reason Comments Chemotherapy C7D1 Leucovorin/5FU 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) Encounter for antineoplastic chemotherapy Procedures RI LEUCOVORIN CALCIUM INJECTION RI PALONOSETRON HCL RI FLUOROURACIL INJECTION RI OXALIPLATIN Jeff Robbins MD [address] [place] [address] Anc Hem/Onc Scenery Alejandrina [address] [place] [phone] Referral ID Status Reason Start Date Expiration Date V isits Requested Visits Authorized [id number] Authorized 10/08/2022 10/09/2023 999 999 Encounter Details Date Type Department Care Team Description 01/13/2023 Hem/Onc Treatment Hematology/Oncology Treatment, [place] [address] [place] [address] Alejandrina, Chair 3 Hem Onc Scenery [address] [place] [address] 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)*; Malignant neoplasm of transverse colon (HCC); Encounter for antineoplastic chemotherapy Allergies Active Allergy Reactions Severity Noted Date Comments Prochlorperazine Edema face/lips/tongue High 023 BODY DYSFUNCTION documented as of this encounter (statuses as of 01/13/2023) Medications Medication Sig Dispensed Refills Start Date [...] HCl 0.1 % Nasal Solution Administer 1 [place] into nostril in the morning and 1 [place] before bedtime. 0 Active Escitalopram Oxalate 10 MG Oral Tablet (Lexapro) Take 1 Tablet by mouth in the morning. 0 Active oxyCODONE HCl 5 MG Oral Tablet (Oxy IR)Indications:[place] stasis to liver (HCC),Malignant neoplasm of transverse colon (HCC) Take 1 Tablet by mouth every 4 hours as needed for Pain, Moderate. 30 Tablet 0 10/10/2022 Active Mirtazapine 30 MG Oral Tablet (Remeron)Indication s:Anxiety disorder due to medical condition Take 1 Tablet by mouth at bedtime. 60 Tablet 0 11/12/2022 Active busPIRone HCl 10 MG Oral Tablet (Buspar) Take 1 Tablet by mouth in the morning and 1 Tablet at noon and 1 Tablet before bedtime. 90 Tablet 0 12/19/2022 Active Loperamide HCl 2 MG Oral Capsule [...] skin once a week. 0 10/06/2022 Active documented as of this encounter (statuses as of 01/13/2023) Active Problems Problem Noted Date Dehydration 01/05/2023 Hypokalemia 01/05/2023 Metastasis to liver 10/07/2022 Malignant neoplasm of transverse colon 0 10/07/2022 Encounter for antineoplastic chemotherap y 10/07/2022 JOY (generalized anxiety disorder) 09/26 Severe protein-energy malnutrition 09/25 Abdominal mass, right upper quadrant Colonic mass 09/24/2022 Elevated LFTs 09/24/2022 Iron deficiency anemia 09/24/2022 ANTHONY (acute kidney injury) 09/24/2022 documented as of this encounter (statuses as of 01/13/2023) Social History Tobacco Use Types Packs/Day Years [...] Sign Reading Time Taken Comments Blood Pressure 127/84 01/13/2023 11:15 AM EDT Pulse 98 01/13/2023 11:15 AM EDT Temperature 35.8 C (96.4 F) 01/13/2023 11:15 AM E DT Respiratory Rate 18 01/13/2023 11:15 AM EDT Oxygen Saturation - - Inhaled Oxygen Concentration - - Weight 72.7 kg (160 lb 3.2 oz) 01/13/2023 11:15 AM EDT Height - - Body Mass Index 25.87 10/22/2022 12:03 PM EDT documented in this [...] as of this encounter Nursing Notes * Leonora De Leon RN - 01/13/2023 12:38 PM EDT Chair 2 Chemo agents Leucovorin/5FU Appetite Good Nausea/Vomiting none Diarrhea patient had some diarrhea, he used imodium for relief. Constipation none Mucositis none Fatigue energy is ok Bleeding none Infection none Rash none Numbness tingling none Pain none Radiation none ABN Labs WNL for treatment today Alt in Tx: none Return in 2 days for pump disconnect Safety and Risk for Injury Patient will remain free from injury. Ensure appropriate safety devices are available. Provide and maintain safe environment. Functional status at today's visit: Restricted in [...] from injury. Possible barriers to meeting goals: risk for falls r/t ambulating with IV pole Stability of the patient: Moderately unstable - medium risk of patient condition declining or worsening Summary regarding today's goals: Met: pt remained free from falls and injury Patient connected to 5FU infusion ball. Pt discharged in stable condition. * Charisse Spann RN - 01/12/2023 12:01 PM EDT Alk phos 378. Per Dr Robbins, ok to treat. documented in this encounter Plan of Treatment Upcoming Encounters Date Type Specialty Care Team Description 01/15/2023 Immunization/Injection Hematology Oncolog y Nurse, Med 4 [address] [place] [address] 01/27/2023 Office Visit Hematology Oncology Eli Finch CRNP [address] [place] [address] 01/27/2023 Hem/Onc Treatment Hematology Oncology [place], Chair 6 Hem Onc Scenery [address] [place] [address] 03/18/2023 Telemedicine Palliative Medicine Eli Mckeon CRNP [address] [place] [address] 06/25/2023 Telemedicine Gastroenterology Andreea Goodman, [address] [place] [address] Health Maintenance Due Date Last Done Comments [...] encounter Medical Devices Implanted Type Area E Commerce Architect Device Identifier Shelf Expiration Date Model / Serial / Lot Power Port 8fr Sngl Lumen Plas - [id number] Implanted:Qty : 1 on 10/22/2022 by James Baeza DO at OR [facility] Right: Chest CR BARD : PERIPHERAL VASCULAR [id number] 02/25/2024 [id number] / / [id number] documented as of this encounter Visit Diagnoses [...] ONCE PRN Other, Hypersensitivity Reaction, Starting on Thu01/13/23 at 1115, Until Thu01/14/23 at 1114, For 24 hours EPINEPHrine 1 MG/ML inj 0.3 mg 0.3 mg, Intramuscular, ONCE PRN Other, Hypersensitivity Reaction or Anaphylaxis, Starting on Thu01/13/23 at 1115, Until Thu01/14/23 at 1114, For 24 hours hEParin 100 UNIT/ML Lock Flush inj 500 Units 500 Units (5 mL), IV Lock, PRN Other, IV Flush, Starting on Thu01/13/23 at 1115, Until Thu01/14/23 at 1114, For 24 hours, Do not flush if lock, PICC, or central line not in place; IV infusing or unable to flush. Hydrocortisone Sod Suc (PF) (Solu-Cortef) inj 100 mg 100 mg, IV Push, ONCE PRN Other, Hypersensitivity Reaction, Starting on Thu01/13/23 at 1115, Until Thu01/14/23 at 1114, For 24 hours oxygen GAS Inhalation, OXYGEN, First dose on Thu01/13/23 at 1600, Until Discontinued, Device/Managed by: Low [...] Push, PRN Other, IV Flush, Starting on Thu01/13/23 at 1115, Until Thu01/14/23 at 1114, For 24 hours, Do not flush if lock, PICC, or central line not in place; IV infusing or unable to flush. Given 01/13/2023 12:16 PM EDT 10 mL Inactive Administered Medications - up to 3 most recent administrations Medication Order MAR Action Action Date Dose Rate Site Fluorouracil (5-Fu) 4,175 mg for Home Infusion 4,175 mg (rounded from 4,176 mg = 2,400 mg/m2 1.74 m2 Order-specific BSA), Intravenous, Administer over 46 Hours, Home Infusion Pharmacy to specify base solution and volume., ONCE, 1 dose, On Thu01/13/23 at 1315 Start Infusion 01/13/2023 12:20 PM EDT 4,175 mg 5 mL/hr Fluorouracil (5-Fu) inj 700 mg 700 mg (rounded from 696 mg = 400 mg/m2 1.74 m2 Order-specific BSA), IV Push, ONCE, 1 dose, On Thu01/13/23 at 1300 Given 01/13/2023 12:16 PM EDT 700 mg leucovorin calcium 700 mg in D5W 250 mL INFUSION 700 mg (rounded from 696 mg = 400 mg/m2 1.74 m2 Order-specific BSA), IV Piggyback, ONCE, 1 dose, On Thu01/13/23 at 1200, Administer over 30 Minutes, Before 5-FU Start Infusion 01/13/2023 11:39 AM EDT 700 mg 500 mL/hr NSS infusion FOR HYDRATION Intravenous, at 50 mL/hr Administer over 10 Hours, ONCE, 1 dose, On Thu01/13/23 at 1200 Start Infusion 01/13/2023 11:31 AM EDT 500 mL 50 mL/hr ondansetron (Zofran) tab 8 mg 8 mg, Oral, ONCE, On Thu01/13/23 at 1200, For 1 dose Given 01/13/2023 11:31 AM EDT 8 mg documented in this encounter Advance Directives Documents on File Type Date Recorded Patient Go Go Dancer Expl 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 Question Answer Comments Discussion of Advance Directives occurred with: Patient Care Teams Corporate Legal Secretary Relationship Specialty Start Date End Date Escobar Iglesias DO [address] [place] [address] PCP - General Family Medicine 10/07/22 documented as of this encounter
--- OUTSIDE RECORDS SUMMARY | 2023-05-29 14:20 | External Medical Summary | Summary of Care ---
Author Name Unknown Organization [facility] Address [address] [facility] [address] Phone [phone] Care Team Providers Care Terminal Manager Name Role Phone Escobar Iglesias DO Primary Care Provider Encounter Details Date Type Department Care Team Description 01/14/2023 Telephone Hepatology, [facility] [address] [place] [address] Andreea Goodman DO [address] [place] [address] Allergies Active Allergy Reactions Severity Noted Date Comments Prochlorperazine Edema face/lips/tongue High 023 BODY DYSFUNCTION documented as of this encounter (statuses as of 01/14/2023) Medications Medication Sig Dispensed Refills Start Date [...] HCl 0.1 % Nasal Solution Administer 1 [place] into nostril in the morning and 1 [place] before bedtime. 0 Active Escitalopram Oxalate 10 MG Oral Tablet (Lexapro) Take 1 Tablet by mouth in the morning. 0 Active oxyCODONE HCl 5 MG Oral Tablet (Oxy IR)Indications:[place] stasis to liver (HCC),Malignant neoplasm of transverse [...] as of this encounter (statuses as of 01/14/2023) Active Problems Problem Noted Date Dehydration 01/05/2023 Hypokalemia 01/05/2023 Metastasis to liver 10/07/2022 Malignant neoplasm of transverse colon 0 10/07/2022 Encounter for antineoplastic chemotherap y 10/07/2022 JOY (generalized anxiety disorder) 09/26 Severe protein-energy malnutrition 09/25 Abdominal mass, right upper quadrant Colonic mass 09/24/2022 Elevated LFTs 09/24/2022 Iron deficiency anemia 09/24/2022 ANTHONY (acute kidney injury) 09/24/2022 documented as of this encounter (statuses as of 01/14/2023) Social History Tobacco Use Types Packs/Day Years [...] encounter Miscellaneous Notes * Telephone Encounter - Andreea Goodman DO [...] Hematology Oncolog y Nurse, Med [address] [place] [address] 01/27/2023 Office Visit Hematology Oncology Eli Finch CRNP [address] [place] [address] [place] [address] 01/27/2023 Hem/Onc Treatment Hematology Oncology [place], Chair 6 Hem Onc Scenery [address] [place] [address] 03/18/2023 Telemedicine Palliative Medicine Eli Mckeon CRNP [address] [place] [place] [address] 06/25/2023 Telemedicine Gastroenterology Andreea Goodman DO [address] [place] [address] Health Maintenance Due Date Last Done Comments [...] this encounter Medical Devices Implanted Type Area Wooden Fence Erector Device Identifier Shelf Expiration Date Model / Serial / Lot Power Port 8fr Sngl Lumen Plas - [id number] Implanted:Qty : 1 on 10/22/2022 by James Baeza DO at OR [facility] Right: Chest CR BARD : PERIPHERAL VASCULAR [id number] 02/25/2024 [id number] / / [id number] documented as of this encounter Advance Directives Documents on File Type Date Recorded Patient Gas Welding Machine Operator Expl 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 Question Answer Comments Discussion of Advance Directives occurred with: Patient Care Teams Terminal Manager Relationship Specialty Start Date End Date Escobar Iglesias, DO [address] [place] [address] PCP - General Family Medicine 10/07/22 documented as of this encounter
--- OUTSIDE RECORDS SUMMARY | 2023-05-29 14:20 | External Medical Summary | Summary of Care ---
Author Name Unknown Organization [facility] Address [address] [place] [address] Phone [phone] Care Team Providers Care Sales Marketing Director Name Role Phone Escobar Iglesias DO Primary Care Provider Reason for Visit * Reason Onset Date Comments Medication Refill 01/16/2023 Encounter Details Date Type Department Care Team Description 01/16/2023 Refill Palliative Medicine, [facility] [address] [facility] 5th Floor [place], [place] [id number] Jamel Wilder MD [address] [place] [address] Anxiety disorder due to medical condition Allergies Active Allergy Reactions Severity Noted Date Comments Prochlorperazine Edema face/lips/tongue High 023 BODY DYSFUNCTION documented as of this encounter (statuses as of 01/16/2023) Medications Medication Sig Dispensed Refills Start Date [...] HCl 0.1 % Nasal Solution Administer 1 [place] into nostril in the morning and 1 [place] before bedtime. 0 Active Escitalopram Oxalate 10 MG Oral Tablet (Lexapro) Take 1 Tablet by mouth in the morning. 0 Active oxyCODONE HCl 5 MG Oral Tablet (Oxy IR)Indications:Me tastasis to liver (HCC),Malignant neoplasm of transverse colon (HCC) Take 1 Tablet by mouth every 4 hours as needed for Pain, Moderate. 30 Tablet 0 10/10/2022 Active busPIRone HCl 10 MG Oral Tablet [...] skin once a week. 0 10/06/2022 Active Mirtazapine 30 MG Oral Tablet (Remeron)Indicati ons:Anxiety disorder due to medical condition Take 1 Tablet by mouth at bedtime. 60 Tablet 0 01/16/2023 Active Mirtazapine 30 MG Oral Tablet (Remeron)Indicati ons:Anxiety disorder due to medical condition Take 1 Tablet by mouth at bedtime. 60 Tablet 0 11/12/2022 3 Discontinue d(Refill) documented as of this encounter (statuses as of 01/16/2023) Active Problems Problem Noted Date Dehydration 01/05/2023 Hypokalemia 01/05/2023 Metastasis to liver 10/07/2022 Malignant neoplasm of transverse colon 0 10/07/2022 Encounter for antineoplastic chemotherap y 10/07/2022 JOY (generalized anxiety disorder) 09/26 Severe protein-energy malnutrition 09/25 Abdominal mass, right upper quadrant Colonic mass 09/24/2022 Elevated LFTs 09/24/2022 Iron deficiency anemia 09/24/2022 ANTHONY (acute kidney injury) 09/24/2022 documented as of this encounter (statuses as of 01/16/2023) Social History Tobacco Use Types Packs/Day Years [...] Telephone Encounter - Jamel Wilder MD - 01/16/2023 2:46 PM EDT Signed Prescriptions: Disp Refills Mirtazapine 30 MG Oral Tablet (Remeron) 60 Tab*0 Sig: Take 1 Tablet by mouth at bedtime. Authorizing Provider: JAMEL WILDER * Telephone Encounter - Jonna Roper LPN - 01/16/2023 2:29 PM EDTPending Prescriptions: Disp Refills Mirtazapine 30 MG Oral Tablet (Remeron) 60 Tab*0 Sig: Take 1 Tablet by mouth at bedtime. * Telephone Encounter - GILBERT Henry - 01/16/2023 2:26 PM EDT Did you pend patient's preferred pharmacy and medication before forwarding?yes Pharmacy: [id number] [address] [facility] [place] Pending Prescriptions: Disp Refills Mirtazapine 30 MG Oral Tablet (Remeron) 60 Tab*0 Sig: Take 1 Tablet by mouth at bedtime. Last Visit: 10/22/2022 (in office), Visit date not found (telemedicine) Next Visit: 03/18/2023 If no future appointments scheduled, and last appointment is greater than a year ago, please schedule patient for a follow-up appointment Last date the medication was ordered: 11/12/22 Is this request for a controlled substance?No Urine Drug Screen:No results found for this or any previous visit. Patient Phone Numbers Labs: Lab Results Component Value Date/Time CREAT 1.0 01/12/2023 09:39 AM POTASSIUM 4.0 01/12/2023 09:39 AM LDLCALC 129 07/22/2022 10:44 AM ALT 26 01/12/2023 09:39 AM documented in this encounter Plan of Treatment Upcoming Encounters Date Type Specialty Care Team Description 01/27/2023 Office Visit Hematology Oncology Eli Finch CRNP [address] [place] [address] 01/27/2023 Hem/Onc Treatment Hematology Oncology [place], Chair 6 Hem Onc Scenery [address] [place] [address] 03/18/2023 Telemedicine Palliative Medicine Eli Mckeon CRNP [address] [place] [address] 06/25/2023 Telemedicine Gastroenterology Andreea Goodman DO [address] [place] [address] Health Maintenance Due Date Last Done Comments [...] this encounter Medical Devices Implanted Type Area Real Estate Loan Officer Device Identifier Shelf Expiration Date Model / Serial / Lot Power Port 8fr Sngl Lumen Plas - [id number] Implanted:Qty : 1 on 10/22/2022 by James Baeza DO at OR [facility] Right: Chest CR BARD : PERIPHERAL VASCULAR [id number] 02/25/2024 [id number] / / [id number] documented as of this encounter Visit Diagnoses Diagnosis 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 documented in this encounter Advance Directives Documents on File Type Date Recorded Patient Nurse Administrator Expl 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 Question Answer Comments Discussion of Advance Directives occurred with: Patient Care Teams Sales Marketing Director Relationship Specialty Start Date End Date Escobar Iglesias DO [address] [facility] [place] [address] PCP - General Family Medicine 10/07/22 documented as of this encounter
--- OUTSIDE RECORDS SUMMARY | 2023-05-29 14:20 | External Medical Summary | Summary of Care ---
Author Name Unknown Organization [facility] Address [address] [facility] [address] Phone [phone] Care Team Providers Care Weapons Specialist Name Role Phone Escobar Iglesias DO Primary Care Provider Encounter Details Date Type Department Care Team Description 01/14/2023 Telephone Hepatology, [facility] [address] [place] [address] Andreea Goodman DO [address] [place] [address] Allergies Active Allergy Reactions Severity Noted Date [...] 0.1 % Nasal Solution Administer 1 [place] into nostril in the morning and 1 [place] before bedtime. 0 Active Escitalopram Oxalate 10 MG Oral Tablet (Lexapro) Take 1 Tablet by mouth in the morning. 0 Active oxyCODONE HCl 5 MG Oral Tablet (Oxy IR)Indications:[place] stasis to liver (HCC),Malignant neoplasm of transverse [...] Hematology Oncolog y Nurse, Med [address] [place] [address] 01/27/2023 Office Visit Hematology Oncology Eli Finch CRNP [address] [place] [address] 01/27/2023 Hem/Onc Treatment Hematology Oncology [place], Chair 6 Hem Onc Scenery [address] [place] [address] 03/18/2023 Telemedicine Palliative Medicine Eli Mckeon CRNP [address] [place] [address] 06/25/2023 Telemedicine Gastroenterology Andreea Goodman DO [address] [place] [address] Health Maintenance Due Date Last Done Comments [...] this encounter Medical Devices Implanted Type Area Differential Specialist Device Identifier Shelf Expiration Date Model / Serial / Lot Power Port 8fr Sngl Lumen Plas - [id number] Implanted:Qty : 1 on 10/22/2022 by Flakito Baeza DO at OR [facility] Right: Chest CR BARD : PERIPHERAL VASCULAR [id number] 02/25/2024 [id number] / / [id number] documented as of this encounter Advance Directives Documents on File Type Date Recorded Patient Credentialing Specialist Expl 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 Question Answer Comments Discussion of Advance Directives occurred with: Patient Care Teams Weapons Specialist Relationship Specialty Start Date End Date Escobar Iglesias DO [address] [place] [address] PCP - General Family Medicine 10/07/22 documented as of this encounter
--- OUTSIDE RECORDS SUMMARY | 2023-05-29 14:20 | External Medical Summary | Summary of Care ---
Author Name Unknown Organization [facility] Address [address] [place] [address] Phone [phone] Care Team Providers Care Fire Alarm Installer Name Role Phone Escobar Iglesias DO Primary Care Provider Reason for Visit * Reason Comments Procedure Pump disconnect/port flush * Episode Based Medications (Routine) - Authorized Specialty Diagnoses / Procedures Referred By Contac t Referred To Contact Diagnoses 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) Encounter for antineoplastic chemotherapy Procedures AL LEUCOVORIN CALCIUM INJECTION AL PALONOSETRON HCL AL FLUOROURACIL INJECTION AL OXALIPLATIN Jeff Robbins MD [address] [facility] [place] [address] Anc Hem/Onc [facility] [address] [facility] [place] [address] Referral ID Status Reason Start Date Expiration Date V isits Requested Visits Authorized [id number] Authorized 10/08/2022 10/09/[phone] Encounter Details Date Type Department Care Team Description 01/15/2023 Immunization/I njection Hematology/Oncology Treatment, [place] [address] [facility] [place] [address] Nurse, Med [facility] [place] [address] 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)*; Malignant neoplasm of transverse colon (HCC); Encounter for antineoplastic chemotherapy Allergies Active Allergy Reactions Severity Noted Date Comments Prochlorperazine Edema face/lips/tongue High 023 BODY DYSFUNCTION documented as of this encounter (statuses as of 01/15/2023) Medications Medication Sig Dispensed Refills Start Date [...] HCl 0.1 % Nasal Solution Administer 1 [place] into nostril in the morning and 1 [place] before bedtime. 0 Active Escitalopram Oxalate 10 MG Oral Tablet (Lexapro) Take 1 Tablet by mouth in the morning. 0 Active oxyCODONE HCl 5 MG Oral Tablet (Oxy IR)Indications:[place] stasis to liver (HCC),Malignant neoplasm of transverse [...] 60 Capsule 0 01/05/2023 Active Potassium Chloride [facility] 10 MEQ Oral Tablet Extended ReleaseIndications: Malignant neoplasm of transverse colon (HCC),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),Hypokalemia Take 1 Tablet by mouth in the morning and 1 Tablet before bedtime. 60 Tablet 2 01/06/2023 Active Buprenorphine 5 MCG/HR Transdermal Patch Weekly Place 1 Patch topically on the skin once a week. 0 10/06/2022 Active documented as of this encounter (statuses as of 01/15/2023) Active Problems Problem Noted Date Dehydration 01/05/2023 Hypokalemia 01/05/2023 Metastasis to liver 10/07/2022 Malignant neoplasm of transverse colon 0 10/07/2022 Encounter for antineoplastic chemotherap y 10/07/2022 JOY (generalized anxiety disorder) 09/26 Severe protein-energy malnutrition 09/25 Abdominal mass, right upper quadrant Colonic mass 09/24/2022 Elevated LFTs 09/24/2022 Iron deficiency anemia 09/24/2022 ANTHONY (acute kidney injury) 09/24/2022 documented as of this encounter (statuses as of 01/15/2023) Social History Tobacco Use Types Packs/Day Years [...] Nursing Notes * Rachel Rogers RN - 01/15/2023 11:09 AM EDT Chair 4 Pt arrives with home 5FU infusion pump completed. He complains of fatigue and some acid reflux, denies any emesis. Pt denies any other complaints. Pump disconnected, VAD flushed per protocol and michele needle removed. Patient tolerated treatment well and was discharged in stable condition. No coverage needed today. documented in this encounter Plan of Treatment Upcoming Encounters Date Type Specialty Care Team Description 01/27/2023 Office Visit Hematology Oncology Eli Finch CRNP [address] [place] [address] 01/27/2023 Hem/Onc Treatment Hematology Oncology [place], Chair 6 Hem Onc Scenery [address] [facility] [address] 03/18/2023 Telemedicine Palliative Medicine Eli Mckeon CRNP [address] [place] [address] 06/25/2023 Telemedicine Gastroenterology Andreea Goodman, [address] [place] [address] Health Maintenance Due Date Last Done Comments [...] this encounter Medical Devices Implanted Type Area Canceling And Cutting Control Clerk Device Identifier Shelf Expiration Date Model / Serial / Lot Power Port 8fr Sngl Lumen Plas - [id number] Implanted:Qty : 1 on 10/22/2022 by James Baeza DO at OR [facility] Right: Chest CR BARD : PERIPHERAL VASCULAR [id number] 02/25/2024 [id number] / / [id number] documented as of this encounter Visit Diagnoses [...] PRN Other, IV Flush, Starting on Mamie 01/15/23 at 1015, Until 01/16/23 at 1014, For 24 hours, Do not flush if lock, PICC, or central line not in place; IV infusing or unable to flush. Given 01/15/2023 10:22 AM EDT 500 Units sodium chloride 0.9 % flush central line 10 mL 10 mL, IV Push, PRN Other, IV Flush, Starting on Mamie 01/15/23 at 1015, Until 01/16/23 at 1014, For 24 hours, Do not flush if lock, PICC, or central line not in place; IV infusing or unable to flush. Given 01/15/2023 10:22 AM EDT 10 mL documented in this encounter Advance Directives Documents on File Type Date Recorded Patient Jacquard Loom Heddles Tier Expl 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 Question Answer Comments Discussion of Advance Directives occurred with: Patient Care Teams Fire Alarm Installer Relationship Specialty Start Date End Date Escobar Iglesias DO [address] [place] [address] PCP - General Family Medicine 10/07/22 documented as of this encounter
--- OUTSIDE RECORDS SUMMARY | 2023-05-29 14:20 | External Medical Summary | Summary of Care ---
Author Name Unknown Organization [facility] Address [address] [place] [address] Phone [phone] Care Team Providers Care Director Of Public Relations Name Role Phone Escobar Iglesias DO Primary Care Provider Reason for Visit * Reason Onset Date Comments Medication Refill 01/16/2023 Encounter Details Date Type Department Care Team Description 01/16/2023 Refill Hematology/Oncology [facility] Alejandrina Richardson [address] [facility] [place] [address] Brooklyn Robbins MD [address] [facility] [place] [address] Malignant neoplasm of transverse colon (HCC); 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) Allergies Active Allergy Reactions Severity Noted [...] HCl 0.1 % Nasal Solution Administer 1 [place] into nostril in the morning and 1 [place] before bedtime. 0 Active Escitalopram Oxalate 10 MG Oral Tablet (Lexapro) Take 1 Tablet by mouth in the morning. 0 Active busPIRone HCl 10 MG Oral Tablet [...] Pain, Moderate. 30 Tablet 0 01/16/2023 Active oxyCODONE HCl 5 MG Oral Tablet (Oxy IR)Indications:Me tastasis to liver (HCC),Malignant neoplasm of transverse colon (HCC) Take 1 Tablet by mouth every 4 hours as needed for Pain, Moderate. 30 Tablet 0 10/10/2022 3 Discontinue d(Refill) documented as of this [...] encounter Miscellaneous Notes * Telephone Encounter - Leonora De Leon RN - 01/16/2023 3:11 PM EDTSigned Prescriptions: Disp Refills oxyCODONE HCl 5 MG Oral Tablet (Oxy IR) 30 Tab*0 Sig: Take 1 Tablet by mouth every 4 hours as needed for Pain, Moderate.Authorizing Provider: BROOKLYN ROBBINS------- * Telephone Encounter - Brooklyn Robbins MD - 01/16/2023 3:05 PM EDT E-prescribed Brooklyn Robbins MD Hem/Onc * Telephone Encounter - Leonora De Leon RN - 01/16/2023 2:34 PM EDTPending Prescriptions: Disp Refills oxyCODONE HCl 5 MG Oral Tablet (Oxy IR) 30 Tab*0 Sig: Take 1 Tablet by mouth every 4 hours as needed for Pain, Moderate. * Telephone Encounter - Leonora De Leon RN - 01/16/2023 2:33 PM EDT PDMP reviewed, no concerns. Last prescribed oxycodone on 10/10/22, 5 days, 30 tablets. * Telephone Encounter - GILBERT Henry Tech - 01/16/2023 2:21 PM EDT Pt fell yesterday. Pt may run out before the weekend. Did you pend patient's preferred pharmacy and medication before forwarding?yes Pharmacy: [id number] [address] [facility] Pending Prescriptions: Disp Refills oxyCODONE HCl 5 MG Oral Tablet (Oxy IR) 30 Tab*0 Sig: Take 1 Tablet by mouth every 4 hours as needed for Pain, Moderate. Last Visit: 01/06/2023 (in office), Visit date not found (telemedicine) Next Visit: 01/27/2023 If no future appointments scheduled, and last appointment is greater than a year ago, please schedule patient for a follow-up appointment Last date the medication was ordered: 10/10/22 Is this request for a controlled substance?Yes, What was the last refill date 10/10 w/ quantity 30 and dosage prn and Urine Drug Screen Not completed Urine Drug Screen:No results found for this [...] Visit Hematology Oncology Eli Finch CRNP [address] [place] [address] 01/27/2023 Hem/Onc Treatment Hematology Oncology Alejandrina, Chair 6 Hem Onc Scenery [address] [facility] [address] 03/18/2023 Telemedicine Palliative Medicine Eli Mckeon CRNP [address] [place] [address] 06/25/2023 Telemedicine Gastroenterology Andreea Goodman DO [address] [place] [address] Health Maintenance Due Date Last Done Comments [...] this encounter Medical Devices Implanted Type Area Conservation Educator Device Identifier Shelf Expiration Date Model / Serial / Lot Power Port 8fr Sngl Lumen Plas - [id number] Implanted:Qty : 1 on 10/22/2022 by James Baeza DO at OR [facility] Right: Chest CR BARD : PERIPHERAL VASCULAR [id number] 02/25/2024 [id number] / / [id number] documented as of this encounter Visit Diagnoses Diagnosis Malignant neoplasm of transverse colon (HCC) Malignant 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 Question Answer Comments Discussion of Advance Directives occurred with: Patient Care Teams Director Of Public Relations Relationship Specialty Start Date End Date Escobar Iglesias DO [address] [place] [address] PCP - General Family Medicine 10/07/22 documented as of this encounter
--- OUTSIDE RECORDS SUMMARY | 2023-05-29 14:20 | External Medical Summary | Summary of Care ---
Author Name Unknown Organization [facility] Address [address] [place] [address] Phone [phone] Care Team Providers Care Motor Vehicle Licence Examiner Name Role Phone Escobar Iglesias DO Primary Care Provider Reason for Visit * Reason Onset Date Comments FYI 01/16/2023 Encounter Details Date Type Department Care Team Description 01/16/2023 Telephone Pharmacy Call Center [address] [facility] [place] [address] Escobar Iglesias DO [address] [place] [address] FYI Allergies Active Allergy Reactions Severity Noted Date [...] 0.1 % Nasal Solution Administer 1 [place] into nostril in the morning and 1 [place] before bedtime. 0 Active Escitalopram Oxalate 10 MG Oral Tablet (Lexapro) Take 1 Tablet by mouth in the morning. 0 Active oxyCODONE HCl 5 MG Oral Tablet (Oxy IR)Indications:[place] stasis to liver (HCC),Malignant neoplasm of transverse [...] encounter Miscellaneous Notes * Telephone Encounter - Shruthi Coulter CPhT - 01/16/2023 2:21 PM EDT Pts transferred to Hemonc/onc dept Thank you, Shruthi Coulter Freelance Art Director II [facility] ([facility]) (formerly Telepharmacy) 01/16/2023 2:22 PM documented in this encounter Plan of Treatment Upcoming Encounters Date Type Specialty Care Team Description 01/27/2023 Office Visit Hematology Oncology Eli Finch CRNP [address] [place] [id number] 01/27/2023 Hem/Onc Treatment Hematology Oncology [place], Chair 6 Hem Onc Scenery [address] [place] [address] 03/18/2023 Telemedicine Palliative Medicine Eli Mckeon CRNP [address] [place] [address] 06/25/2023 Telemedicine Gastroenterology Andreea Goodman DO [address] [place] [address] Health Maintenance Due Date Last Done [...] this encounter Medical Devices Implanted Type Area Stockfeed Miller Device Identifier Shelf Expiration Date Model / Serial / Lot Power Port 8fr Sngl Lumen Plas - [id number] Implanted:Qty : 1 on 10/22/2022 by James Baeza DO at OR [facility] Right: Chest CR BARD : PERIPHERAL VASCULAR [id number] 02/25/2024 [id number] / / [id number] documented as of this encounter Advance Directives Documents on File Type Date Recorded Patient Sales Associate Fishing Expl 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 Question Answer Comments Discussion of Advance Directives occurred with: Patient Care Teams Motor Vehicle Licence Examiner Relationship Specialty Start Date End Date Escobar Iglesias DO [address] [place] [address] PCP - General Family Medicine 10/07/22 documented as of this encounter
--- OUTSIDE RECORDS SUMMARY | 2023-05-29 14:20 | External Medical Summary | Summary of Care ---
Author Name Unknown Organization [facility] Address [address] [place] [address] Phone [phone] Care Team Providers Care Shirt Line Operator Name Role Phone Escobar Iglesias DO Primary Care Provider Reason for Visit * Reason Onset Date Comments Medication Refill 01/17/2023 Encounter Details Date Type Department Care Team Description 01/17/2023 Refill Palliative Medicine, [facility] [address] [facility] 5th Floor [place], [place] [id number] Jamel Wilder MD [address] [place] [address] Allergies Active Allergy Reactions Severity Noted Date Comments Prochlorperazine Edema face/lips/tongue High 023 BODY DYSFUNCTION documented as of this encounter (statuses as of 01/19/2023) Medications Medication Sig Dispensed Refills Start Date [...] HCl 0.1 % Nasal Solution Administer 1 [place] into nostril in the morning and 1 [place] before bedtime. 0 Active Escitalopram Oxalate 10 [...] before bedtime. 270 Tablet 0 01/19/2023 Active busPIRone HCl 10 MG Oral Tablet (Buspar) Take 1 Tablet by mouth in the morning and 1 Tablet at noon and 1 Tablet before bedtime. 90 Tablet 0 12/19/2022 3 Discontinue d(Refill) documented as of this encounter (statuses as of 01/19/2023) Active Problems Problem Noted Date Dehydration 01/05/2023 Hypokalemia 01/05/2023 Metastasis to liver 10/07/2022 Malignant neoplasm of transverse colon 0 10/07/2022 Encounter for antineoplastic chemotherap y 10/07/2022 JOY (generalized anxiety disorder) 09/26 Severe protein-energy malnutrition 09/25 Abdominal mass, right upper quadrant Colonic mass 09/24/2022 Elevated LFTs 09/24/2022 Iron deficiency anemia 09/24/2022 ANTHONY (acute kidney injury) 09/24/2022 documented as of this encounter (statuses as of 01/19/2023) Social History Tobacco Use Types Packs/Day Years [...] Telephone Encounter - Jamel Wilder MD - 01/19/2023 9:11 AM EDT Signed Prescriptions: Disp Refills busPIRone HCl 10 MG Oral Tablet (Buspar) 270 Ta*0 Sig: Take 1 Tablet by mouth in the morning and 1 Tablet at noon and 1 Tablet before bedtime. Authorizing Provider: JAMEL WILDER * Telephone Encounter - Jonna Roper LPN - 01/19/2023 7:25 AM EDTPending Prescriptions: Disp Refills busPIRone HCl 10 MG Oral Tablet (Buspar) 270 Ta* Sig: Take 1 Tablet by mouth in the morning and 1 Tablet at noon and 1 Tablet before bedtime. * Telephone Encounter - Elinor Monzon CPhT - 01/17/2023 10:15 AM EDT Pt is requesting this be changed to a 90 day supply . Please approve the following modified prescription if appropriate. Did you pend patient's preferred pharmacy and medication before forwarding?yes Pharmacy: [id number] [address] [facility] Pending Prescriptions: Disp Refills busPIRone HCl 10 MG Oral Tablet (Buspar) 270 Ta* Sig: Take 1 Tablet by mouth in the morning and 1 Tablet at noon and 1 Tablet before bedtime. Last Visit: 10/22/2022 (in office), Visit date not found (telemedicine) Next Visit: 03/18/2023 If no future appointments scheduled, and last appointment is greater than a year ago, please schedule patient for a follow-up appointment Last date the medication was ordered: 12.19.22 Is this request for a controlled substance?No [...] Oncology Eli Finch CRNP [address] [place] [address] 01/27/2023 Hem/Onc Treatment Hematology Oncology [place], [address] [facility] [address] 03/18/2023 Telemedicine Palliative Medicine Eli Mckeon CRNP [address] [place] [id number] 06/25/2023 Telemedicine Gastroenterology Andreea Goodman DO [address] [place] [address] Health Maintenance Due Date Last Done Comments [...] encounter Medical Devices Implanted Type Area Director Inbound Sales Device Identifier Shelf Expiration Date Model / Serial / Lot Power Port 8fr Sngl Lumen Plas - [id number] Implanted:Qty : 1 on 10/22/2022 by James Baeza DO at OR [facility] Right: Chest CR BARD : PERIPHERAL VASCULAR [id number] 02/25/2024 [id number] / / [id number] documented as of this encounter Advance Directives Documents on File Type Date Recorded Patient Reservoir Engineering Consultant Expl 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 Question Answer Comments Discussion of Advance Directives occurred with: Patient Care Teams Shirt Line Operator Relationship Specialty Start Date End Date Escobar Iglesias DO [address] [place] [address] PCP - General Family Medicine 10/07/22 documented as of this encounter
--- OUTSIDE RECORDS SUMMARY | 2023-05-29 14:21 | External Medical Summary | Summary of Care ---
Author Name Unknown Organization [facility] Address [address] [place] [address] Phone [phone] Care Team Providers Care Air Crew Officer Name Role Phone Escobar Iglesias DO Primary Care Provider Reason for Visit * Reason Comments NEW PATIENT Malignant neoplasm o f transverse colon , enriqueta to liver, abnormal LFT * Evaluate & Treat - Unlimited Visits (Within 10 days (routine)) - Authorized Specialty Diagnoses / Procedures Referred By Barbra orr Referred To Contact Gastroenterology Diagnoses 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) Abnormal LFTs Jeff Robbins MD [address] [place] [address] Referral ID Status Reason Start Date Expiration Date Visits Requested Visits Authorized [id number] Authorized Specialty Services Required 10/10/[phone] Encounter Details Date Type Department Care Team Description 01/08/2023 Telemedicine Hepatology, [facility] [address] [facility] [place] [address] Andreea Goodman DO [address] [place] [address] Hepatitis B core antibody positive* Allergies Active Allergy Reactions Severity Noted Date Comments Prochlorperazine Edema face/lips/tongue High 023 BODY DYSFUNCTION documented as of this encounter (statuses as of 01/08/2023) Medications Medication Sig Dispensed Refills Start Date [...] HCl 0.1 % Nasal Solution Administer 1 [place] into nostril in the morning and 1 [place] before bedtime. 0 Active Escitalopram Oxalate 10 MG Oral Tablet (Lexapro) Take 1 Tablet by mouth in the morning. 0 Active oxyCODONE HCl 5 MG Oral Tablet (Oxy IR)Indications:Me tastasis to liver (HCC),Malignant neoplasm of transverse colon (HCC) Take 1 Tablet by mouth every 4 hours as needed for Pain, Moderate. 30 Tablet 0 10/10/2022 Active Mirtazapine 30 MG Oral Tablet (Remeron)Indicati [...] skin once a week. 0 10/06/2022 Active Cyclobenzaprine HCl 5 MG Oral Tablet (Flexeril) Take 1 Tablet by mouth at bedtime as needed for Muscle spasms. 0 3 Discontinue d(Medicatio n List Clean Up) Famotidine 40 MG Oral Tablet Take 1 Tablet by mouth daily before dinner. 0 3 Discontinue d(Medicatio n List Clean Up) Acetaminophen 325 MG Oral Tablet (Tylenol) Take 2 Tablets by mouth every 6 hours as needed for Pain, Mild. < Than 3 grams in 24 hrs 30 Tablet 0 09/27/2022 3 Discontinue d(Medicatio n List Clean Up) traMADol HCl 50 MG Oral Tablet (Ultram) 1 Tablet every 6 hours as needed. 0 10/06/2022 3 Discontinue d(Medicatio n List Clean Up) documented as of this encounter (statuses as of 01/08/2023) Active Problems Problem Noted Date Dehydration 01/05/2023 Hypokalemia 01/05/2023 Metastasis to liver 10/07/2022 Malignant neoplasm of transverse colon 0 10/07/2022 Encounter for antineoplastic chemotherap y 10/07/2022 JOY (generalized anxiety disorder) 09/26 Severe protein-energy malnutrition 09/25 Abdominal mass, right upper quadrant Colonic mass 09/24/2022 Elevated LFTs 09/24/2022 Iron deficiency anemia 09/24/2022 ANTHONY (acute kidney injury) 09/24/2022 documented as of this encounter (statuses as of 01/08/2023) Social History Tobacco Use Types Packs/Day Years [...] as of this encounter Progress Notes * Andreea Espinal [place], DO - 01/08/2023 2:35 PM EDT Images from the original note were not included. Patient location: HOME. I was in a hospital or clinic location. After connecting through televideo,patient was verified with two unique identifiers. Patient (or authorized legal termite control service representative) was then informed that this was a Telemedicine visit and being conducted confidentially over secure lines. Methods to assure confidentiality were taken. Patient acknowledged consent and understanding of pr ivacy and security of the Telemedicine visit. The patient agreed to participate. CC: abnormal LFTs, + hep B core Ab HPI: Escobar Reagan is a 77 year old male referred by Jeff Robbins MD for further evaluation of abnormal LFTs and + hepatitis B core Ab while on chemotherapy. 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 He is a Jain. He is on modified FOLFOX every 2 weeks. Started on 10/10/2022. He has been having some diarrhea using imodium for symptom relief. He also reports some fatigue and feeling weak. Most recent LFTs with ALT 22, ALT 33, ALP 255, and total bilirubin 0.8. His ALP has been persistently elevated as high as 672 due to his liver mets but there has been no biliary dilation or obstruction. He was found to have a + hep B core Ab total with negative surface antibody and surface antigen in September. Most recently hepatitis B surface Ag 2 weeks ago remains negative. HBV DNA negative in September. No past medical history on file. Current Outpatient Medications Medication Sig Dispense Refill Senna 8.6 MG Oral Capsule Take 1 Tablet by mouth 2 times a day as needed for Constipation. 30 Capsule 1 Ondansetron HCl 8 MG Oral Tablet (Zofran) Take 1 Tablet by mouth every 8 hours as needed for Nausea. 30 Tablet 2 Azelastine HCl 0.1 % Nasal Solution Administer 1 [place] into nostril in the morning and 1 [place] before bedtime. Escitalopram Oxalate 10 MG Oral Tablet (Lexapro) Take 1 Tablet by mouth in the morning. oxyCODONE HCl 5 MG Oral Tablet (Oxy [...] Tablet at noonand 1 Tablet before bedtime. 90 Tablet 0 Loperamide HCl 2 MG Oral Capsule (Imodium) Take 1 Capsule by mouth 4 times a day as needed for Diarrhea. 60 Capsule 0 Potassium Chloride Sherice ER 10 MEQ Oral Tablet Extended Release Take 1 Tablet by mouth in the morning and 1 Tablet before bedtime. 60 Tablet 2 Losartan Potassium-HCTZ 100-25 MG Oral Tablet Take 1 Tablet by mouth in the morning. (Patient not taking: Reported on 01/08/2023) Ascorbic Acid 500 MG Oral Tablet Take 1 Tablet by mouth in the morning. (Patient not taking: Reported on 01/08/2023) Vitamin E 400 UNIT Oral Capsule (Aquasol E) Take 1 Capsule by mouth in the morning. (Patient not taking: Reported on 01/08/2023) Buprenorphine 5 MCG/HR Transdermal Patch Weekly Place 1 Patch topically on the skin once a week. (Patient not taking: Reported on 01/08/2023) No current facility-administered medications for this visit. Review of patient's allergies indicates: Allergen Reactions Prochlorperazine Edema face/lips/tongue BODY DYSFUNCTION Social History Socioeconomic History Marital status: Spouse [...] on file Housing Stability: Not on file No family history on file. Review of Systems: Constitutional: No report of fever, chills, night sweats. There have been no non-intentional weightchanges. Eyes: No recent changes in visual acuity or blurring of vision. ENT: No change in auditory acuity, sense of smell or taste. CV: No chest pain, palpitations, dyspnea on exertion. Respiratory: No wheezing, cough, sputum production. : No dysuria, polyuria, change in urinary frequency. GI: Per HPI, otherwise negative. Psychiatric: No chronic changes in mood, affect or sensorium. Musculoskeletal: No myalgias, arthralgias, or joint pains. Neurological: No change in gait, change in maintenance of balance, neurologic injuries. Physical Exam- no vitals obtained as this was a video visit Thin male, temporal muscle wasting with some sarcopenia Eyes: Conjunctivae and sclerae are clear and non-icteric. Pulm: No respiratory distress Psychiatric: The patient is alert and oriented in all four spheres. Mood is euthymic. Affect is appropriate for the situation. Neuro: AAOx3 Labs: Reviewed Hepatitis B Core Antibodies IgG and IgM Negative Positive Abnormal VC Hepatitis B Surface Antibody, Quantitative mIU/mL <3.5 Hepatitis B Surface Antibody, Qualitative Negative Hepatitis B Surface Antibody, Interpretation NOT immune to Hepatitis B Virus Comment: POSITIVE: >=11.5 mIU/mL INDETERMINATE: 8.5-<11.5 mIU/mL NEGATIVE: <8.5 mIU/mL Hepatitis B Surface Antigen Negative Negative Component Ref Range & Units 2 mo ago Hepatitis B Virus DNA Interpretation HBV DNA not detected HBV DNA not detected Component Latest Ref Rng 10/27/2022 11/11/2022 BUN 6 - 20 mg/dL 20 24 (H) Creatinine 0.6 - 1.2 mg/dL 1.0 1.0 Estimated Glomerular Filtration Rate >=60 mL/min 81 78 Sodium 135 - 146 mmol/L 137 140 Potassium 3.5 - 5.1 mmol/L 4.1 4.3 Chloride 98 - 107 mmol/L 102 104 CO2 22 - 32 mmol/L 25 26 Anion Gap 7 - 15 mmol/L 10 10 Glucose 70 - 120 mg/dL 112 103 Albumin 3.8 - 5.0 g/dL 2.7 (L) 2.9 (L) AST 10 - 50 U/L 166 (H) 52 (H) Alkaline Phosphatase 35 - 130 U/L 672 (H) 509 (H) Bilirubin, Total <=1.2 mg/dL 0.8 0.6 Calcium 8.4 - 10.2 mg/dL 8.7 9.0 Protein 6.0 - 8.3 g/dL 6.6 6.7 ALT 10 - 50 U/L 52 (H) 32 Component Latest Ref Rn 11/24/2022 12/08/2022 BUN 6 - 20 mg/dL 22 (H) 18 Creatinine 0.6 - 1.2 mg/dL 0.9 0.9 Estimated Glomerular Filtration Rate >=60 mL/min 88 85 Sodium 135 - 146 mmol/L 138 138 Potassium 3.5 - 5.1 mmol/L 3.6 3.8 Chloride 98 - 107 mmol/L 103 105 CO2 22 - 32 mmol/L 25 24 Anion Gap 7 - 15 mmol/L 10 9 Glucose 70 - 120 mg/dL 95 104 Albumin 3.8 - 5.0 g/dL 3.0 (L) 2.8 (L) AST 10 - 50 U/L 35 47 Alkaline Phosphatase 35 - 130 U/L 330 (H) 296 (H) Bilirubin, Total <=1.2 mg/dL 0.4 0.5 Calcium 8.4 - 10.2 mg/dL 9.1 8.9 Protein 6.0 - 8.3 g/dL 6.4 6.0 ALT 10 - 50 U/L 20 22 Component Latest Ref Rng 12/22/2022 01/05/2023 BUN 6 - 20 mg/dL 28 (H) 28 (H) Creatinine 0.6 - 1.2 mg/dL 1.1 1.0 Estimated Glomerular Filtration Rate >=60 mL/min 73 75 Sodium 135 - 146 mmol/L 140 141 Potassium 3.5 - 5.1 mmol/L 3.4 (L) 2.7 (L) Chloride 98 - 107 mmol/L 105 107 CO2 22 - 32 mmol/L 25 22 Anion Gap 7 - 15 mmol/L 10 12 Glucose 70 - 120 mg/dL 113 131 (H) Albumin 3.8 - 5.0 g/dL 2.8 (L) 2.8 (L) AST 10 - 50 U/L 41 33 Alkaline Phosphatase 35 - 130 U/L 287 (H) 255 (H) Bilirubin, Total <=1.2 mg/dL 0.6 0.8 Calcium 8.4 - 10.2 mg/dL 8.8 8.6 Protein 6.0 - 8.3 g/dL 5.7 (L) 5.6 (L) ALT 10 - 50 U/L 25 22 (L) Low (H) High Imaging: Reviewed CT scan of the chest, abdomen pelvis (01/01/2023): 1. Partial response. Decrease in size of [...] right kidney lower pole 1.5 cm lesion. Right lobe lateral dome measures 4.0 cm (image 35), previously 4.3 cm. Left lobe segment II measures 3.2 cm (image 46), previously 6.4 cm). Right lobe to the right of the middle hepatic vein measures 3.1 cm (image 43), previously 4.6 cm). ASSESSMENT: HPI: Escobar Reagan is a 77 year old male referred by Jeff Robbins MD for further evaluation of abnormal LFTs and + hepatitis B core Ab while on chemotherapy. 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 He is a Jain. Plan: 1. Hep B core Ab total positive with negative viral load, surface Ab, and surface Ag. We discussed that FOLFOX therapy runs a moderate risk of hepatitis B reactivation while on chemotherapy. He has been on this for 3 months with no evidence of reactivation. We discussed with moderate risk (not highrisk) we can do one of 2 things which is either 1. start anti-viral for prophylaxis or 2. monitor hepatitis B viral load and serologies every 3 months with LFTs monthly. He wishes to not start any antivirals and just continue to monitor his serologies and labs which I agree is very reasonable. All standing orders placed. If his chemotherapy changes he will notify me because if he is placed on a regimen that is considered high risk of reactivation he would need anti-viral prophylaxis. 2. Follow up in 6 months Andreea Goodman DO Gastroenterology and Hepatology I spent a total of 45 minutes on the date of service in review of patient's record, and previously obtained information in person and appropriate medical visit, discussion and education of plan, withpatient and/or caregiver, placing orders for tests/referral/procedures as medically necessary and documentation of pertinent clinical information in patient's medical records for their visit today. documented in this encounter Nursing Notes * Abbie Ramirez LPN - 01/08/2023 2:21 PM EDT Patient identified by name and date of . Chief Complaint Patient presents with NEW PATIENT Malignant neoplasm of transverse colon , enriqueta to liver, abnormal LFT documented in this encounter Plan of Treatment Upcoming Encounters Date Type Specialty Care Team Description 01/12/2023 Laboratory Laboratory [facility] Lab [facility] [address] [facility] [place] [address] 01/13/2023 Hem/Onc Treatment Hematology Oncology Alejandrina, Chair [address] Hem On[address] Sc[address]ery [address] [place] [address] 01/27/2023 Office Visit Hematology Oncology Eli Finch CRNP [address] [place] [address] 03/18/2023 Telemedicine Palliative Medicine Eli Mckeon CRNP [address] [place] [address] Scheduled Orders Name Type Priority Associated Diagnoses Orde r Schedule HEPATITIS A ANTIBODIES IGG AND IGM Lab Routine Hepatitis B core antibody positive Expected: 01/09/2023, Expires: 01/09/2024 HEPATITIS C ANTIBODY Lab Routine Hepatitis B core antibody positive Expected: 01/09/2023, Expires: 01/09/2024 HEPATITIS B VIRUS DNA, QUANTITATIVE, REAL-TIME PCR Lab Routine Hepatitis B core antibody positive Every 3 Months for 4 Occurrences starting 01/08/2023 until 01/09/2024 HEPATITIS B SURFACE ANTIBODY Lab Routine Hepatitis B core antibody positive Every 3 Months for 4 Occurrences starting 01/08/2023 until 01/09/2024 HEPATITIS B SURFACE ANTIGEN Lab Routine Hepatitis B core antibody positive Every 3 Months for 4 Occurrences starting 01/08/2023 until 01/09/2024 HEPATIC FUNCTION PANEL Lab Routine Hepatitis B core antibody positive Every Month for 12 Occurrences starting 01/08/2023 until 01/09/2024 Health Maintenance Due Date Last Done Comments [...] this encounter Medical Devices Implanted Type Area Level Vial Grinder Device Identifier Shelf Expiration Date Model / Serial / Lot Power Port 8fr Sngl Lumen Plas - [id number] Implanted:Qty : 1 on 10/22/2022 by James Baeza DO at OR [facility] Right: Chest CR BARD : PERIPHERAL VASCULAR [id number] 02/25/2024 [id number] / / [id number] documented as of this encounter Visit Diagnoses Diagnosis Hepatitis B core antibody positive- Primary Other and unspecified nonspecific immunological findings documented in this encounter Advance Directives Documents on File Type Date Recorded Patient Tool Procurement Coordinator Expl 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 Question Answer Comments Discussion of Advance Directives occurred with: Patient Care Teams Air Crew Officer Relationship Specialty Start Date End Date Escobar Iglesias DO [address] [place] [address] PCP - General Family Medicine 10/07/22 documented as of this encounter
--- OUTSIDE RECORDS SUMMARY | 2023-05-29 14:21 | External Medical Summary ---
Author Name Unknown Address Unknown Organization K09:[facility] [place] [address] Laboratory Report Ordering Provider Test Date Status KINGSTON SCHROEDER 01/12/2023 09:39:37 Final Observation Date Value Abnormality Reference (Units ) Status Bilirubin, Direct 01/12/2023 09:39:37 0.2 0. 0-0.3 (mg/dL) Final Performing Location [facility] [place] [address]
--- OUTSIDE RECORDS SUMMARY | 2023-05-29 14:21 | External Medical Summary ---
Author Name Unknown Address Unknown Organization K01:[facility] [place] [address] [place] [address] Laboratory Report Ordering Provider Test Date Status KINGSTON SCHROEDER 01/12/2023 09:39:37 Final Observation Date Value Abnormality Reference (Units ) Status Hepatitis B virus DNA panel - Serum or Plasma 01/12/2023 09:39:37 HBV DNA not detected HBV DNA not detected Final Performing Location LAB[facility] - [address] [place] [address]
--- OUTSIDE RECORDS SUMMARY | 2023-05-29 14:21 | External Medical Summary | Summary of Care ---
Author Name Unknown Organization [facility] Address [address] [place] [address] Phone [phone] Care Team Providers Care Automobile Upholsterer Apprentice Name Role Phone Escobar Iglesias DO Primary Care Provider Reason for Visit * Reason Onset Date Comments Med Request 01/02/2023 Encounter Details Date Type Department Care Team Description 01/02/2023 Telephone Palliative Medicine, [facility] [address] 5th [address] [place], [place] [id number] Jamel Vargas MD [address] [place] [address] Med Request Allergies Active Allergy Reactions Severity Noted Date Comments Prochlorperazine Edema face/lips/tongue High 023 documented as of this encounter (statuses as of 01/05/2023) Medications Medication Sig Dispensed Refills Start Date End Date Status Losartan Potassium-HCTZ 100-25 MG Oral Tablet Take 1 Tablet by mouth in the morning. 0 Active Cyclobenzaprine HCl 5 MG Oral Tablet (Flexeril) Take 1 Tablet by mouth at bedtime as needed for Muscle spasms. 0 Active Famotidine 40 MG Oral Tablet Take 1 Tablet by mouth daily before dinner. 0 Active Ascorbic Acid 500 MG Oral Tablet Take 1 Tablet by mouth in the morning. 0 Active Vitamin E 400 UNIT Oral Capsule (Aquasol E) Take 1 Capsule by mouth in the morning. 0 Active Acetaminophen 325 MG Oral Tablet (Tylenol) Take 2 Tablets by mouth every 6 hours as needed for Pain, Mild. < Than 3 grams in 24 hrs 30 Tablet 0 09/27/2022 Active Senna 8.6 MG Oral Capsule Take [...] HCl 0.1 % Nasal Solution Administer 1 Model into nostril in the morning and 1 Model before bedtime. 0 Active Escitalopram Oxalate 10 MG Oral Tablet (Lexapro) Take 1 Tablet by mouth in the morning. 0 Active oxyCODONE HCl 5 MG Oral Tablet (Oxy IR)Indications:[place] stasis to liver (HCC),Malignant neoplasm of transverse [...] for Diarrhea. 60 Capsule 0 01/05/2023 Active documented as of this encounter (statuses as of 01/05/2023) Active Problems Problem Noted Date Metastasis to liver 10/07/2022 Malignant neoplasm of transverse colon 0 10/07/2022 Encounter for antineoplastic chemotherap y 10/07/2022 JOY (generalized anxiety disorder) 09/26 Severe protein-energy malnutrition 09/25 Abdominal mass, right upper quadrant Colonic mass 09/24/2022 Elevated LFTs 09/24/2022 Iron deficiency anemia 09/24/2022 ANTHONY (acute kidney injury) 09/24/2022 documented as of this encounter (statuses as of 01/05/2023) Social History Tobacco Use Types Packs/Day Years [...] Telephone Encounter - Jonna Roper LPN - 01/05/2023 8:43 AM EDT informed Does not feel appt for anxiety is needed at this time Will keep regular scheduled f/u Will call us if needing seen sooner * Addendum Note - Jamel Vargas MD - 01/05/2023 8:35 AM EDTAddended by: JAMEL VARGAS on: 01/05/2023 08:35 AM Modules accepted: Orders * Telephone Encounter - Jamel Vargas MD - 01/05/2023 8:34 AM EDT Sent in Immodium, its a 2mg tablet, can take 4mg after first loose BM then 2mg after subsequent ones, but then should not take more than 16mg (8 tab) per day. Also would wait to start this until labsfrom [facility] are taken so they get an accurate picture of his electrolytes. Anxiety we will need to discuss further in person - does he have an appt soon? * Telephone Encounter - Jonna Roper LPN - 01/05/2023 8:[address] Vargas: Can you call and get more info? If he is really dehydrated from diarrhea, needs to go to ER. Otherwise recommend BRAT diet, find out what meds he is already taking, and if needed we can try Lomotil, but hard to know w/o that info. Also check if fevers etc in case its viral gastroenteritis Called and spoke with , Marlen Has been having diarrhea mostly just after eating No blood in stool Very watery Going to [facility] this morning for lab work-routine labs Seeing Robbins and getting treatment tomorrow Having a lot of increased anxiety Is having increased weakness Does not feel he is to the point where he is needing to go to ER He is drinking plenty of water and gatorade Occasional vomiting-no more than 2 times in the past 5 days No fever or contact with any other sick people Has not tried immodium or lomotil Open to trying either * Telephone Encounter - Julia Matt CPhT - 01/02/2023 3:27 PM EDT Pt's calling stating the pt is having diarrhea. He has been having issues for about 3 days nowand is asking if there is a medication that can be called in to help him. Please send to [id number] [facility] COLLIER if appropriate. Thank you, Shayy Matt Hedge Fund Accountant I [facility] (Former[facility]) 01/02/2023,3:29 PM documented in this encounter Plan of Treatment Upcoming Encounters Date Type Specialty Care Team Description 01/05/2023 Laboratory Laboratory Alejandrina, Lab Scenery [address] [place] [address] 01/06/2023 Office Visit Hematology Oncology Jeff Robbins MD [address] [place] [address] 01/06/2023 Hem/Onc Treatment Hematology Oncology Alejandrina, Chair 7 Hem Onc Scenery [address] [place] [address] 01/08/2023 Office Visit Gastroenterology Andreea Goodman DO [address] [place] [address] 03/18/2023 Telemedicine Palliative Medicine [facility] CR[facility] [address] [facility] [id number] Health Maintenance Due Date Last Done Comments [...] this encounter Medical Devices Implanted Type Area Supervisor Toy Parts Former Device Identifier Shelf Expiration Date Model / Serial / Lot Power Port 8fr Sngl Lumen Plas - [id number] Implanted:Qty : 1 on 10/22/2022 by James Baeza DO at OR [facility] Right: Chest CR BARD : PERIPHERAL VASCULAR [id number] 02/25/2024 [id number] / / [id number] documented as of this encounter Visit Diagnoses Diagnosis Chemotherapy induced diarrhea- Primary Diarrhea documented in this encounter Advance Directives Documents on File Type Date Recorded Patient Studio Assistant Expl 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 Question Answer Comments Discussion of Advance Directives occurred with: Patient Care Teams Automobile Upholsterer Apprentice Relationship Specialty Start Date End Date Escobar Iglesias DO [address] [place] [address] PCP - General Family Medicine 10/07/22 documented as of this encounter
--- OUTSIDE RECORDS SUMMARY | 2023-05-29 14:21 | External Medical Summary ---
Author Name Unknown Address Unknown Organization K01:[facility] [address] [place] [address] Laboratory Report Ordering Provider Test Date Status KINGSTON SCHROEDER 01/12/2023 09:39:37 Final Observation Date Value Abnormality Reference (Units) Status Hepatitis B virus surface Ab [Units/volume] in Serum or Plasma by Immunoassay 01/12/2023 09:39:37 <3.5 (mIU/mL) Final Hepatitis B virus surface Ab [Presence] in Serum by Immunoassay 01/12/2023 09:39:37 Negative Final HEPATITIS B SURFACE ANTIBODY, INTERPRETATION 01/12/2023 09:39:37 NOT immune to Hepatitis B Virus Final POSITIVE: >=11.5 mIU/mL
INDETERMINATE: 8.5-<11.5 mIU/mL
NEGATIVE: <8.5 mIU/mL Performing Location [facility] [address] [place] [address]
--- OUTSIDE RECORDS SUMMARY | 2023-05-29 14:21 | External Medical Summary ---
Author Name Unknown Address Unknown Organization K09:[facility] [place] [address] Laboratory Report Ordering Provider Test Date Status RASHAAD BARAHONA 01/12/2023 09:39:37 Final Observation Date Value Abnormality Reference (Units ) Status WBC, Total 01/12/2023 09:39:37 7.35 4.00-10.8 0 (K/uL) Final RBC 01/12/2023 09:39:37 3.66 4.50-5.25 (M/uL) Final Hemoglobin 01/12/2023 09:39:37 12.9 Below low normal 14 .0-16.8 (g/dL) Final HCT 01/12/2023 09:39:37 38.4 Below low normal 40. 0-48.4 (%) Final MCV 01/12/2023 09:39:37 104.9 82.0-99.5 (fL) Final MCH 01/12/2023 09:39:37 35.2 27.0-34.0 (pg) Final MCHC 01/12/2023 09:39:37 33.6 32.0-36.0 (g/dL) Final RDW 01/12/2023 09:39:37 23.4 11.5-15.5 (%) Final Platelets 01/12/2023 09:39:37 172 140-400 (K /uL) Final MPV 01/12/2023 09:39:37 9.5 6.6-11.1 ( fL) Final Performing Location [facility] [place] [address]
--- OUTSIDE RECORDS SUMMARY | 2023-05-29 14:21 | External Medical Summary | Summary of Care ---
Author Name Unknown Organization [facility] Address [address] [place] [address] Phone [phone] Care Team Providers Care Final Inspector And Tester Name Role Phone Escobar Iglesias DO Primary Care Provider Reason for Visit * Reason Comments Outpatient Testing Encounter Details Date Type Department Care Team Description 01/12/2023 Laboratory Laboratory [facility] [address] [place] [address] [facility] Lab Scenery [address] [place] [address] 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); Malignant neoplasm of transverse colon (HCC); Hepatitis B core antibody positive Allergies Active Allergy Reactions Severity Noted Date Comments Prochlorperazine Edema face/lips/tongue High 023 BODY DYSFUNCTION documented as of this encounter (statuses as of 01/12/2023) Medications Medication Sig Dispensed Refills Start Date [...] HCl 0.1 % Nasal Solution Administer 1 [place] into nostril in the morning and 1 [place] before bedtime. 0 Active Escitalopram Oxalate 10 MG Oral Tablet (Lexapro) Take 1 Tablet by mouth in the morning. 0 Active oxyCODONE HCl 5 MG Oral Tablet (Oxy IR)Indications:[place] stasis to liver (HCC),Malignant neoplasm of transverse [...] as of this encounter (statuses as of 01/12/2023) Active Problems Problem Noted Date Dehydration 01/05/2023 Hypokalemia 01/05/2023 Metastasis to liver 10/07/2022 Malignant neoplasm of transverse colon 0 10/07/2022 Encounter for antineoplastic chemotherap y 10/07/2022 JOY (generalized anxiety disorder) 09/26 Severe protein-energy malnutrition 09/25 Abdominal mass, right upper quadrant Colonic mass 09/24/2022 Elevated LFTs 09/24/2022 Iron deficiency anemia 09/24/2022 ANTHONY (acute kidney injury) 09/24/2022 documented as of this encounter (statuses as of 01/12/2023) Social History Tobacco Use Types Packs/Day Years [...] Encounters Date Type Specialty Care Team Description 01/13/2023 Hem/Onc Treatment Hematology Oncology Alejandrina, Chair 3 Hem Onc Scenery [address] [place] [address] 01/27/2023 Office Visit Hematology Oncology Eli Finch CRNP [address] [place] [address] 03/18/2023 Telemedicine Palliative Medicine Eli Mckeon CRNP [address] [place] [address] 06/25/2023 Telemedicine Gastroenterology Andreea Goodman DO [address] [place] [address] Pending Results Name Type Priority Associated Diagnoses Date /Time CBC WITH WBC DIFFERENTIAL Lab STAT 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) 01/12/2023 9:39 AM EDT COMPREHENSIVE METABOLIC PANEL Lab STAT 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) 01/12/2023 9:39 AM EDT HEPATITIS B SURFACE ANTIGEN Lab STAT 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) 01/12/2023 9:39 AM EDT HEPATITIS A ANTIBODIES IGG AND IGM Lab Routine Hepatitis B core antibody positive 01/12/2023 9:39 AM EDT HEPATITIS C ANTIBODY Lab Routine Hepatitis B core antibody positive 01/12/2023 9:39 AM EDT HEPATITIS B VIRUS DNA, QUANTITATIVE, REAL-TIME PCR Lab Routine Hepatitis B core antibody positive 01/12/2023 9:39 AM EDT HEPATITIS B SURFACE ANTIBODY Lab Routine Hepatitis B core antibody positive 01/12/2023 9:39 AM EDT CBC Lab STAT 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) 01/12/2023 9:39 AM EDT DIFFERENTIAL, AUTOMATED Lab STAT 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) 01/12/2023 9:39 AM EDT BILIRUBIN, DIRECT Lab Routine Hepatitis B core antibody positive 01/12/2023 9:39 AM EDT Health Maintenance Due Date Last [...] this encounter Medical Devices Implanted Type Area Talent Acquisition Associate Device Identifier Shelf Expiration Date Model / Serial / Lot Power Port 8fr Sngl Lumen Plas - [id number] Implanted:Qty : 1 on 10/22/2022 by James Baeza DO at OR [facility] Right: Chest CR BARD : PERIPHERAL VASCULAR [id number] 02/25/2024 [id number] / / [id number] documented as of this encounter Visit Diagnoses Diagnosis 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) 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) 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 Question Answer Comments Discussion of Advance Directives occurred with: Patient Care Teams Final Inspector And Tester Relationship Specialty Start Date End Date Escobar Iglesias DO [address] [place] [address] PCP - General Family Medicine 10/07/22 documented as of this encounter
--- OUTSIDE RECORDS SUMMARY | 2023-05-29 14:21 | External Medical Summary | Summary of Care ---
Author Name Unknown Organization [facility] Address [address] [place] [address] Phone [phone] Care Team Providers Care Robotic Weld Technician Name Role Phone Escobar Iglesias DO Primary Care Provider Reason for Visit * Reason Comments Chemotherapy Encounter Details Date Type Department Care Team Description 01/06/2023 Office Visit Hematology/Oncology [facility] Ale[facility]rina [place] [address] [facility] [place] [address] [facility] [address] [facility] [address] Malignant neoplasm of transverse colon (HCC)*; 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); Hypokalemia Allergies Active Allergy Reactions Severity Noted Date Comments Prochlorperazine Edema face/lips/tongue High 023 documented as of this encounter (statuses as of 01/06/2023) Medications Medication Sig Dispensed Refills Start Date [...] HCl 0.1 % Nasal Solution Administer 1 [place] into nostril in the morning and 1 [place] before bedtime. 0 Active Escitalopram Oxalate 10 MG Oral Tablet (Lexapro) Take 1 Tablet by mouth in the morning. 0 Active oxyCODONE HCl 5 MG Oral Tablet (Oxy IR)Indications:[place] stasis to liver (HCC),Malignant neoplasm of transverse [...] before bedtime. 60 Tablet 2 01/06/2023 Active documented as of this encounter (statuses as of 01/06/2023) Active Problems Problem Noted Date Dehydration 01/05/2023 Hypokalemia 01/05/2023 Metastasis to liver 10/07/2022 Malignant neoplasm of transverse colon 0 10/07/2022 Encounter for antineoplastic chemotherap y 10/07/2022 JOY (generalized anxiety disorder) 09/26 Severe protein-energy malnutrition 09/25 Abdominal mass, right upper quadrant Colonic mass 09/24/2022 Elevated LFTs 09/24/2022 Iron deficiency anemia 09/24/2022 ANTHONY (acute kidney injury) 09/24/2022 documented as of this encounter (statuses as of 01/06/2023) Social History Tobacco Use Types Packs/Day Years [...] Sign Reading Time Taken Comments Blood Pressure 103/75 01/06/2023 8:59 AM EDT Pulse 81 01/06/2023 8:59 AM EDT Temperature 36.8 C (98.2 F) 01/06/2023 8:59 AM ED T Respiratory Rate 16 01/06/2023 8:59 AM EDT Oxygen Saturation 98% 01/06/2023 8:59 AM EDT Inhaled Oxygen Concentration - - Weight 70.4 kg (155 lb 4.8 oz) 01/06/2023 8:59 A M EDT Height - - Body Mass Index 25.08 10/22/2022 12:03 PM EDT documented in this [...] Progress Notes * Jeff Robbins MD - 01/06/2023 8:45 AM EDT Hematology/Oncology Outpatient Clinic note [facility] [address] [place], [place] [address] Name: Escobar Reagan Date: 12/08/2022 CHIEF COMPLAINT: Escobar Reagan is a 77 year old male here today for f/u visit today. HEMATOLOGY/ONCOLOGY DIAGNOSIS :Transverse colon adenocarcinoma -liver metastasis -multiple lung nodules which are suspicious for metastatic disease -CEA level at diagnosis around 2200 range (late August 2022) -NGS checkup: -TMB 10.3 which is medium high -MSI stable -no actionable mutation -KRAS, NRAS --> negative -BRAF negative Congregational. Iron deficiency. DATE OF DIAGNOSIS: 09/25/22 TREATMENT HISTORY: IV Venofer weekly x 2 completed 10/17/22 CURRENT TREATMENT: MODIFIED FOLFOX6 every 14 days ( x 6 between 10/10/22 - 12/23/2022 during the 1st cycle he received only oxaliplatin as he did not have port) 01/06/2023-->decided to discontinue oxaliplatin because of concerns [...] IMPORTANT HISTORY: -multiple basal cell carcinoma removed. HISTORY OF PRESENT ILLNESS: He has come to the clinic for the follow-up, accompanied by his son in the office. Overall he is doing okay, following last chemotherapy, for the last one week he has some increasingdiarrhea, has been using Imodium for the symptomatic treatment, no nausea no vomiting, no fever, denies any abdominal discomfort, current weight around 155 lb. Has some mild tingling numbness but It is stable, It has not further progressed. No fever, no bleeding from the sites. No blood in the stool. Earlier his blood pressure was on lower side, nowadays he is off the antihypertensive medications. No past medical history on file. Past Surgical History: Procedure Laterality Date INSER TUNN ACC DEV;5 YRS/OLDER Right 10/22/2022 INSERT TUNNELED CENTRAL VENOUS ACCESS WITH SUBQ PORT performed by James Baeza DO at OR [facility] IR BIOPSY 09/25/2022 Social History Socioeconomic [...] Review of patient's allergies indicates: Allergen Reactions Compazine [Prochlorperazine] Edema face/lips/tongue Current Outpatient Medications Medication Sig Dispense Refill Losartan Potassium-HCTZ 100-25 MG Oral Tablet Take 1 Tablet by mouth in the morning. Cyclobenzaprine HCl 5 MG Oral Tablet (Flexeril) Take 1 Tablet by mouth at bedtime as needed for Muscle spasms. Famotidine 40 MG Oral Tablet Take 1 Tablet by mouth daily before dinner. Ascorbic Acid 500 MG Oral Tablet Take 1 Tablet by mouth in the morning. Vitamin E 400 UNIT Oral Capsule (Aquasol E) Take 1 Capsule by mouth in the morning. Acetaminophen 325 MG Oral Tablet (Tylenol) Take 2 Tablets by mouth every 6 hours as needed for Pain, Mild. < Than 3 grams in 24 hrs 30 Tablet 0 Senna 8.6 MG Oral Capsule Take 1 Tablet by mouth 2 times a day as needed for Constipation. 30 Capsule 1 Ondansetron HCl 8 MG Oral Tablet (Zofran) Take 1 Tablet by mouth every 8 hours as needed for Nausea. 30 Tablet 2 Azelastine HCl 0.1 % Nasal Solution Administer 1 [place] into nostril in the morning and 1 [place] before bedtime. Escitalopram Oxalate 10 MG Oral [...] 1 Tablet before bedtime. 90 Tablet 0 No current facility-administered medications for this visit. OBJECTIVE: BP 103/75 (BP Site: Left Arm, BP Position: Sitting, BP Cuff Size: Regular) | Pulse 81 | Temp 36.8 C (98.2 F) (Tympanic) | Resp 16 | Wt 70.4 kg (155 lb 4.8 oz) | SpO2 98% | BMI 25.08 kg/m | BSA 1.81 m PHYSICAL EXAM: ECOG: Performance Status 1 = 80-90% Symptoms but nearly ambulatory General Appearance: No acute distress HEENT: Normal - No oral or pharyngeal masses, ulceration or thrush noted Lymph Nodes: Normal - No palpable lymph nodes in the neck or supraclavicular areas Lungs/Thorax: Normal - Clear to auscultation Heart: Normal - Regular rhythm, +tachycardia, normal S1, S2, no appreciable murmurs Pulses/Extremities: +1 left ankle edema, palpable pedal pulse, sluggish capillary refill Abdomen: Soft, nontender, bowel sounds present, +hepatomegaly Neurologic: alert and oriented x 4, +left foot drop LABS: Blood workup done on 01/05/2023: -BUN/Creat: 28/1.0, potassium 2.7 -AST 33, ALT 22, alkaline phosphatase 255, bilirubin level 0.8 -WBC 1007, H&H of 12.2/35.2, Platelet count 23779, ANC 130. CT scan of the chest, abdomen pelvis (01/01/2023: 1. Partial response. Decrease in size of [...] 3.1 cm (image 43), previously 4.6 cm). 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 Overall tolerated well but for thelast one week he has some increasing diarrhea, using Imodium for the symptomatic treatment, I reviewed his blood workup done yesterday, ANC is on the lower side around 130. Would like to holdtreatment for this week. 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 Will receive IV potassium supplementation 20 mEq today. He will receive oral potassium supplementation 10 mEq twice a day. If he has increasing diarrhea in the next few days, he will call us and then will bring him in the office for additional IV hydration or potassium supplementation He has increasing ascites and leg edema related to the low level of albumin. If It gets worse, willconsider for diuretic therapy. Reviewed with them regarding the recent follow-up imaging study, overall partial response noted. Will see him back in the clinic in about [address] Jeff Robbins [...] Nursing Notes * Jannie Melo CMA - 01/06/2023 9:00 AM EDT Patient identifed by name and birthdate Do you have any concerns about pain management for today's visit? No Living Will or Advance Directive for Health Care as noted on the problem list. [facility] is a way you can talk to your provider on line through e-mail. Would you like to sign up? I can activate it for you? ALREADY ACTIVE Filed Vitals: 01/06/23 0859 BP: 103/75 Pulse: 81 Resp: 16 Temp: 36.8 C (98.2 F) TempSrc: Tympanic SpO2: 98% Weight: 70.4 kg (155 lb 4.8 oz) Patient was instructed to not get [...] Encounters Date Type Specialty Care Team Description 01/08/2023 Office Visit Gastroenterology Andreea Goodman, [address] [place] [address] 01/12/2023 Laboratory Laboratory Alejandrina, Lab Scenery [address] [place] [address] 01/13/2023 Hem/Onc Treatment Hematology Oncology Alejandrnia, Chair 3 Hem Onc Scenery [address] [place] [address] 01/27/2023 Office Visit Hematology Oncology Eli Finch CRNP [address] [place] [address] 03/18/2023 Telemedicine Palliative Medicine Eli Mckeon CRNP [address] [place] [id number] Health Maintenance Due Date Last Done Comments [...] this encounter Medical Devices Implanted Type Area Electrical Assembler Device Identifier Shelf Expiration Date Model / Serial / Lot Power Port 8fr Sngl Lumen Plas - [id number] Implanted:Qty : 1 on 10/22/2022 by James Baeza DO at OR [facility] Right: Chest CR BARD : PERIPHERAL VASCULAR [id number] 02/25/2024 [id number] / / [id number] documented as of this encounter Visit Diagnoses Diagnosis Malignant neoplasm of transverse colon (HCC)- Primary Malignant 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) Secondary malignant neoplasm of liver Hypokalemia Hypopotassemia documented in this encounter Advance Directives Documents on File Type Date Recorded Patient Utility Assembler Expl 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 Question Answer Comments Discussion of Advance Directives occurred with: Patient Care Teams Robotic Weld Technician Relationship Specialty Start Date End Date Escobar Iglesias DO [address] [place] [address] PCP - General Family Medicine 10/07/22 documented as of this encounter"
--- OUTSIDE RECORDS SUMMARY | 2023-05-29 14:21 | External Medical Summary | Summary of Care ---
Author Name Unknown Organization [facility] Address [address] [place] [address] Phone [phone] Care Team Providers Care Coil Taper Name Role Phone Escobar Iglesias DO Primary Care Provider Reason for Visit * Reason Onset Date Comments Test Results Lab 01/05/2023 Encounter Details Date Type Department Care Team Description 01/05/2023 Telephone Hematology/Oncology Treatment, [place] [address] [facility] [address] Jeff Robbins MD [address] [place] [address] Test Results Lab Allergies Active Allergy Reactions Severity Noted Date [...] HCl 0.1 % Nasal Solution Administer 1 [place] into nostril in the morning and 1 [place] before bedtime. 0 Active Escitalopram Oxalate 10 MG Oral Tablet (Lexapro) Take 1 Tablet by mouth in the morning. 0 Active oxyCODONE HCl 5 MG Oral Tablet (Oxy IR)Indications:[place] stasis to liver (HCC),Malignant neoplasm of transverse [...] Miscellaneous Notes * Telephone Encounter - Charisse Spann RN - 01/06/2023 9:[address] Robbins: can you please place alteration since patient is just getting leuco/ 5FU to give leucovorin in 30 min? Thanks! * Telephone Encounter - OSIRIS Corbett - 01/05/2023 2:18 PM EDT Per nursing appts for tomorrow have been scheduled and all appts for next week have been scheduled.Will give patient updated AVS on 01/06/23. * Telephone Encounter - Charisse Spann RN - 01/05/2023 1:[address] Robbins: "Blood workup done on 01/05/2023: -WBC 1700, ANC 130. He is due for next cycle of chemotherapy tomorrow. So far he received 6 cycles of oxaliplatin chemotherapy. Partial response noted in the recent imaging study I would like to delay treatment by 1 week I would like to discontinue oxaliplatin from now onwards to prevent the neurotoxicity in his case He is scheduled to see me, we can delay by 1 week." K 2.7. Called patient- he has been having diarrhea x4 days, 1-2 large episodes each time. Also beenvomiting, but he thinks this is something he ate. Denies dizziness/ lightheadedness, states that heis trying to drink fluids but is weak. Reviewed with Dr Robbins- will still have patient come tomorrow for hydration/ office visit. Patient is agreeable and aware. Scheduling: please change appt tomorrow to 2 hours "hydration/ potassium" Please also schedule for next week - labs on Thursday or Thursday "CBCd, CMP" - 2 hour appt on 503 schedule the day after "C7D1 leuco/ 5FU" - patient can be given appts when he is here tomorrow Thanks! documented in this encounter Plan of Treatment Upcoming Encounters Date Type Specialty Care Team Description 01/08/2023 Office Visit Gastroenterology Andreea Goodman, [address] [place] [address] 01/12/2023 Laboratory Laboratory Alejandrina, Lab Scenery [address] [facility] [place] [address] 01/13/2023 Hem/Onc Treatment Hematology Oncology [place], Chair 3 Hem Onc Scenery [address] [place] [address] 03/18/2023 Telemedicine Palliative Medicine Eli Mckeon CRNP [address] [place], [place] [address] [id number] Health Maintenance Due Date Last Done Comments [...] this encounter Medical Devices Implanted Type Area Fruit Ii Farmworker Device Identifier Shelf Expiration Date Model / Serial / Lot Power Port 8fr Sngl Lumen Plas - [id number] Implanted:Qty : 1 on 10/22/2022 by James Baeza DO at OR [facility] Right: Chest CR BARD : PERIPHERAL VASCULAR [id number] 02/25/2024 [id number] / / [id number] documented as of this encounter Advance Directives Documents on File Type Date Recorded Patient Copy Coordinator Expl 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 Question Answer Comments Discussion of Advance Directives occurred with: Patient Care Teams Coil Taper Relationship Specialty Start Date End Date Escobar Iglesias DO [address] [place] [address] PCP - General Family Medicine 10/07/22 documented as of this encounter
--- OUTSIDE RECORDS SUMMARY | 2023-05-29 14:21 | External Medical Summary ---
Author Name Unknown Address Unknown Organization K01:[facility] [place] [address] [place] [address] Laboratory Report Ordering Provider Test Date Status KINGSTON SCHROEDER 01/12/2023 09:39:37 Final Observation Date Value Abnormality Reference (Units ) Status Hep C Ab 01/12/2023 09:39:37 Negative Negative Final Performing Location [facility] [place] [address] [facility] [address]
--- OUTSIDE RECORDS SUMMARY | 2023-05-29 14:21 | External Medical Summary | Summary of Care ---
Author Name Unknown Organization [facility] Address [address] [place] [address] Phone [phone] Care Team Providers Care Meter Repairer Helper Name Role Phone Escobar Iglesias DO Primary Care Provider Reason for Visit * Reason Comments Outpatient Testing Encounter Details Date Type Department Care Team Description 01/05/2023 Laboratory Laboratory [facility] [address] [place] [address] [facility] Lab Scenery [address] [place] [address] 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); Malignant neoplasm of [...] HCl 0.1 % Nasal Solution Administer 1 [place] into nostril in the morning and 1 [place] before bedtime. 0 Active Escitalopram Oxalate 10 MG Oral Tablet (Lexapro) Take 1 Tablet by mouth in the morning. 0 Active oxyCODONE HCl 5 MG Oral Tablet (Oxy IR)Indications:[place] stasis to liver (HCC),Malignant neoplasm of transverse [...] Encounters Date Type Specialty Care Team Description 01/06/2023 Office Visit Hematology Oncology Jeff Robbins MD 200 [facility] [place] [address] 01/06/2023 Hem/Onc Treatment Hematology [place]cology [place], Chair 7 Hem Onc [facility] [address] [facility] [place] [address] 01/08/2023 Office Visit Gastroenterology Andreea Goodman DO [address] [place] [address] 03/18/2023 Telemedicine Palliative Medicine Eli Mckeon CRNP [address] [place] [phone] Pending Results Name Type Priority Associated Diagnoses Date /Time CBC WITH WBC DIFFERENTIAL Lab STAT 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) 01/05/2023 9:30 AM EDT COMPREHENSIVE METABOLIC PANEL Lab STAT 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) 01/05/2023 9:30 AM EDT CBC Lab STAT 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) 01/05/2023 9:30 AM EDT DIFFERENTIAL, AUTOMATED Lab STAT 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) 01/05/2023 9:30 AM EDT Health Maintenance Due Date Last [...] encounter Medical Devices Implanted Type Area Car Lubricator Device Identifier Shelf Expiration Date Model / Serial / Lot Power Port 8fr Sngl Lumen Plas - [id number] Implanted:Qty : 1 on 10/22/2022 by James Baeza, DO at OR [facility] Right: Chest CR BARD : PERIPHERAL VASCULAR [id number] 02/25/2024 [id number] / / [id number] documented as of this encounter Visit Diagnoses Diagnosis 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) 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 Question Answer Comments Discussion of Advance Directives occurred with: Patient Care Teams Meter Repairer Helper Relationship Specialty Start Date End Date Escobar Iglesias, DO [address] [place] [address] PCP - General Family Medicine 10/07/22 documented as of this encounter
--- OUTSIDE RECORDS SUMMARY | 2023-05-29 14:21 | External Medical Summary | Summary of Care ---
Author Name Unknown Organization [facility] Address [address] [place] [address] Phone [phone] Care Team Providers Care Oreman Name Role Phone Escobar Iglesias DO Primary Care Provider Encounter Details Date Type Department Care Team Description 01/05/2023 Orders Only Hematology/Oncology [facility] Alejandrina [place] [address] [facility] [place] [address] Jeff Robbins MD 200 [facility] [place] [address] Malignant neoplasm of transverse colon (HCC)*; Metastasis [...] HCl 0.1 % Nasal Solution Administer 1 [place] into nostril in the morning and 1 [place] before bedtime. 0 Active Escitalopram Oxalate 10 MG Oral Tablet (Lexapro) Take 1 Tablet by mouth in the morning. 0 Active oxyCODONE HCl 5 MG Oral Tablet (Oxy IR)Indications:[place] stasis to liver (HCC),Malignant neoplasm of transverse [...] Progress Notes * Jeff Robbins MD - 01/05/2023 10:34 AM EDT Blood workup done on 01/05/2023: -WBC 1700, ANC [...] see me, we can delay by 1 week. documented in this encounter Plan of Treatment Upcoming Encounters Date Type Specialty Care Team Description 01/06/2023 Office Visit Hematology Oncology Jeff Robbins MD [address] [place] [id number] 01/06/2023 Hem/Onc Treatment Hematology Oncology [place], Chair 7 Hem Onc [address] [place] [address] 01/08/2023 Office Visit Gastroenterology Andreea Goodman DO [address] [place] [address] 03/18/2023 Telemedicine Palliative Medicine Eli Mckeon CRNP [address] [place] [address] Health Maintenance Due Date [...] this encounter Medical Devices Implanted Type Area [employer] Flatbed Driver Device Identifier Shelf Expiration Date Model / Serial / Lot Power Port 8fr Sngl Lumen Plas - [id number] Implanted:Qty : 1 on 10/22/2022 by James Baeza DO at OR [facility] Right: Chest CR BARD : PERIPHERAL VASCULAR [id number] 02/25/2024 [id number] / / [id number] documented as of this encounter Visit Diagnoses Diagnosis Malignant neoplasm of transverse colon (HCC)- Primary Malignant 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) Secondary malignant neoplasm of liver documented in this encounter Advance Directives Documents on File Type Date Recorded Patient Pile Driver Operator Expl 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 Question Answer Comments Discussion of Advance Directives occurred with: Patient Care Teams [place] Relationship Specialty Start Date End Date Escobar Iglesias, DO [address] [place] [address] PCP - General Family Medicine 10/07/22 documented as of this encounter
--- OUTSIDE RECORDS SUMMARY | 2023-05-29 14:21 | External Medical Summary | Summary of Care ---
Author Name Unknown Organization [facility] Address [address] [place] [address] Phone [phone] Care Team Providers Care Laundry Manager Name Role Phone Escobar Iglesias DO Primary Care Provider Reason for Visit * Reason Comments IV Therapy Potassium Encounter Details Date Type Department Care Team Description 01/06/2023 Hem/Onc Treatment Hematology/Oncology Treatment, [place] [address] [place] [address] Alejandrina, Chair 7 Hem Onc Scenery [address] [place] [address] Hypokalemia*; Dehydration; 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); Malignant neoplasm of [...] HCl 0.1 % Nasal Solution Administer 1 [place] into nostril in the morning and 1 [place] before bedtime. 0 Active Escitalopram Oxalate 10 MG Oral Tablet (Lexapro) Take 1 Tablet by mouth in the morning. 0 Active oxyCODONE HCl 5 MG Oral Tablet (Oxy IR)Indications:[place] stasis to liver (HCC),Malignant neoplasm of transverse [...] Nursing Notes * Kasey Barkley RN - 01/06/2023 12:18 PM EDT Chair 4. Patient saw Dr. Robbins today -- see OV note for details. Patient is not receiving tx today, just here to receive IV Potassium, no IVF d/t his swelling/low albumin. Per Dr. Robbins, patient will not receive any further Oxaliplatin with his treatments and will just receive the Leucovorin and 5FU. Treatment will be next week and pt will just be here today for [address] Robbins, not necessary to have patient come in for more labs/potassium unless his diarrhea is not improved. Patient lives about 45 minutes away and is agreeable to this plan. RN instructed patient to contact us if his diarrhea is not any better, is ongoing, or worsens. RN also educated patient on how to take Imodium for his diarrhea -- discussed taking 2 Imodium in morning and one with each BM that day, up to 8 per day. Patient communicated understanding. Patient also reminded to picking crew supervisor oral Potassium to starttaking since K was 2.7 on labs from yesterday. Patient is accompanied by son today. Pt comfortable and denies further needs at this time. Safety and Risk for Injury Patient will [...] Met: pt remained free of harm today Patient tolerated treatment well without any acute issues or problems. Patient left facility in stable condition and denied any further needs. documented in this encounter Plan of Treatment Upcoming Encounters Date Type Specialty Care Team Description 01/08/2023 Office Visit Gastroenterology Andreea Goodman, [address] [place] [address] 01/12/2023 Laboratory Laboratory [place], Lab Scenery [address] [place] [address] 01/13/2023 Hem/Onc Treatment Hematology Oncology [place], Chair 3 Hem Onc Scenery [address] [place] [address] 01/27/2023 Office Visit Hematology Oncology Eli Finch CRNP [address] [place] [address] 03/18/2023 Telemedicine Palliative Medicine Eli Mckeon CRNP [address] [place] [address] Health Maintenance Due Date Last Done Comments [...] encounter Medical Devices Implanted Type Area Electrical Prospecting Supervisor Device Identifier Shelf Expiration Date Model / Serial / Lot Power Port 8fr Sngl Lumen Plas - [id number] Implanted:Qty : 1 on 10/22/2022 by James Baeza DO at OR [facility] Right: Chest CR BARD : PERIPHERAL VASCULAR [id number] 02/25/2024 [id number] / / [id number] documented as of this encounter Visit Diagnoses Diagnosis Hypokalemia- Primary Hypopotassemia Dehydration 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) 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 Given 01/06/2023 12:11 PM EDT 500 Units sodium chloride 0.9 % flush central line 10 mL 10 mL, IV Push, PRN Other, IV Flush, Starting on Thu01/06/23 at 1004, Until Thu01/07/23 at 1003, For 24 hours, Do not flush if lock, PICC, or central line not in place; IV infusing or unable to flush. Given 01/06/2023 12:11 PM EDT 10 mL Inactive Administered Medications - up to 3 most recent administrations Medication Order MAR Action Action Date Dose Rate Site NSS infusion FOR HYDRATION Intravenous, at 50 mL/hr Administer over 10 Hours, ONCE, 1 dose, On Thu01/06/23 at 1115 Start Infusion 01/06/2023 10:00 AM EDT 500 mL 50 mL/hr potassium chloride 10 mEq in 100 mL ivpb LOCKED DOSE 10 mEq, Peripheral IV, Q1H, 2 doses, First dose on Thu01/06/23 at 1100, Last dose on Thu01/06/23 at 1200, Administer over 60 Minutes, Standard infusion duration is 60 minutes. Start Infusion 01/06/2023 11:03 AM EDT 10 mEq 100 mL/hr Start Infusion 01/06/2023 10:00 AM EDT 10 mEq 100 mL/h r documented in this encounter Advance Directives Documents on File Type Date Recorded Patient Cook Helper Preserves Expl 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 Question Answer Comments Discussion of Advance Directives occurred with: Patient Care Teams Laundry Manager Relationship Specialty Start Date End Date Escobar Iglesias, [address] [place] [address] PCP - General Family Medicine 10/07/22 documented as of this encounter
--- OUTSIDE RECORDS SUMMARY | 2023-05-29 14:21 | External Medical Summary | Summary of Care ---
Author Name Unknown Organization [facility] Address [address] [place] [address] Phone [phone] Care Team Providers Care Paint Roller Covers Supervisor Name Role Phone Escobar Iglesias DO Primary Care Provider Reason for Visit * Reason Onset Date Comments Test Results Lab 01/05/2023 Encounter Details Date Type Department Care Team Description 01/05/2023 Telephone Hematology/Oncology Treatment, [place] [address] [place] [address] Brooklyn Robbins MD [address] [place] [address] Test Results Lab Allergies Active Allergy Reactions [...] HCl 0.1 % Nasal Solution Administer 1 [place] into nostril in the morning and 1 [place] before bedtime. 0 Active Escitalopram Oxalate 10 MG Oral Tablet (Lexapro) Take 1 Tablet by mouth in the morning. 0 Active oxyCODONE HCl 5 MG Oral Tablet (Oxy IR)Indications:[place] stasis to liver (HCC),Malignant neoplasm of transverse [...] encounter Miscellaneous Notes * Addendum Note - Brooklyn Robbins MD - 01/06/2023 9:47 AM EDTAddended by: BROOKLYN ROBBINS on: 01/06/2023 09:47 AM Modules accepted: Orders * Telephone Encounter - Charisse Spann RN [...] Team Description 01/08/2023 Office Visit Gastroenterology Andreea Goodman DO [address] [place] [address] 01/12/2023 Laboratory Laboratory Alejandrina, Lab Scenery [address] [place] [address] 01/13/2023 Hem/Onc Treatment Hematology Oncology [place], Chair 3 Hem Onc Scenery [address] [place] [address] 03/18/2023 Telemedicine Palliative Medicine Eli Mckeon CRNP [address] [place] [address] Health Maintenance Due Date Last Done Comments [...] this encounter Medical Devices Implanted Type Area Reproduction Specialist Device Identifier Shelf Expiration Date Model / Serial / Lot Power Port 8fr Sngl Lumen Plas - [id number] Implanted:Qty : 1 on 10/22/2022 by James Baeza DO at OR [facility] Right: Chest CR BARD : PERIPHERAL VASCULAR [id number] 02/25/2024 [id number] / / [id number] documented as of this encounter Visit Diagnoses Diagnosis Malignant neoplasm of transverse colon (HCC)- Primary Malignant 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) Secondary malignant neoplasm of liver documented in this encounter Advance Directives Documents on File Type Date Recorded Patient Manager Supply Expl 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 Question Answer Comments Discussion of Advance Directives occurred with: Patient Care Teams Paint Roller Covers Supervisor Relationship Specialty Start Date End Date sEcobar Iglesias DO [address] [place] [address] PCP - General Family Medicine 10/07/22 documented as of this encounter
--- OUTSIDE RECORDS SUMMARY | 2023-05-29 14:21 | External Medical Summary ---
Author Name Unknown Address Unknown Organization K01:[facility] [place] [address] [facility] [place] [address] Laboratory Report Ordering Provider Test Date Status KINGSTON SCHROEDER 01/12/2023 09:39:37 Final Observation Date Value Abnormality Reference (Units ) Status Hep A, IgG and/or IgM 01/12/2023 09:39:37 Negative Negative Final Performing Location LABORATORY C - [address] [place] [address]
--- OUTSIDE RECORDS SUMMARY | 2023-05-29 14:21 | External Medical Summary | Summary of Care ---
Author Name Unknown Organization [facility] Address [address] [place] [address] Phone [phone] Care Team Providers Care Flanging Roll Operator Name Role Phone Escobar Iglesias DO Primary Care Provider Reason for Visit * Reason Onset Date Comments Test Results Lab 01/05/2023 Encounter Details Date Type Department Care Team Description 01/05/2023 Telephone Hematology/Oncology Treatment, [place] [address] [facility] [place] [address] Jeff Robbins MD [address] [place] [address] Test Results Lab Allergies Active Allergy Reactions [...] HCl 0.1 % Nasal Solution Administer 1 [place] into nostril in the morning and 1 [place] before bedtime. 0 Active Escitalopram Oxalate 10 MG Oral Tablet (Lexapro) Take 1 Tablet by mouth in the morning. 0 Active oxyCODONE HCl 5 MG Oral Tablet (Oxy IR)Indications:[place] stasis to liver (HCC),Malignant neoplasm of transverse [...] of 01/05/2023) Active Problems Problem Noted Date Dehydration 01/05/2023 [...] Jeff Robbins MD [address] [place] [address] 01/06/2023 Hem/Onc Treatment Hematology Oncology Alejandrina, Chair 7 Hem Onc Scenery [address] [place] [address] 01/08/2023 Office Visit Gastroenterology Andreea Goodman, [address] [place] [address] 01/12/2023 Laboratory Laboratory Alejandrina Lab [place] [address] [place] [address] 01/13/2023 Hem/Onc Treatment Hematology Oncology Alejandrina, Chair 3 Hem Onc Scenery [address] [place] [address] 03/18/2023 Telemedicine Palliative Medicine Eli Mckeon CRNP [address] [place], [place] [address] [address] Health Maintenance Due Date Last [...] this encounter Medical Devices Implanted Type Area Appellate Law Clerk Device Identifier Shelf Expiration Date Model / Serial / Lot Power Port 8fr Sngl Lumen Plas - [id number] Implanted:Qty : 1 on 10/22/2022 by James Baeza DO at OR [facility] Right: Chest CR BARD : PERIPHERAL VASCULAR [id number] 02/25/2024 [id number] / / [id number] documented as of this encounter Advance Directives Documents on File Type Date Recorded Patient Customer Service Supervisor Expl 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 Question Answer Comments Discussion of Advance Directives occurred with: Patient Care Teams Flanging Roll Operator Relationship Specialty Start Date End Date Escobar Iglesias DO [address] [place] [address] PCP - General Family Medicine 10/07/22 documented as of this encounter
--- OUTSIDE RECORDS SUMMARY | 2023-05-29 14:21 | External Medical Summary ---
Author Name Unknown Address Unknown Organization K09:[facility] [address] [place] [address] Laboratory Report Ordering Provider Test Date Status RASHAAD BARAHONA 01/12/2023 09:39:37 Final Observation Date Value Abnormality Reference (Units ) Status SYNC LEUKOCYTES IN BLOOD BY AUTOMATED COUNT 01/12/2023 09:39:37 7.35 4.00-10.80 (K/uL) Final Neutrophils/100 leukocytes in Blood by Manual count 01/12/2023 09:39:37 59.0 40.0-75.0 (%) Final Lymphocytes/100 leukocytes in Blood by Manual count 01/12/2023 09:39:37 20.0 18.0-42.0 (%) Final Monocytes/100 leukocytes in Blood by Manual count 01/12/2023 09:39:37 17.0 Above high normal 1.0-11.0 (%) Final Metamyelocytes/100 leukocytes in Blood by Manual count 01/12/2023 09:39:37 4.0 Above high normal <=0.0 (%) Final Neutrophils [#/volume] in Blood by Manual count 01/12/2023 09:39:37 4.34 1.80-7.70 (K/uL) Final Lymphocytes [#/volume] in Blood by Manual count 01/12/2023 09:39:37 1.47 1.00-4.80 (K/uL) Final Monocytes [#/volume] in Blood by Manual count 01/12/2023 09:39:37 1.25 Above high normal 0.00-1.10 (K/uL) Final Metamyelocytes [#/volume] in Blood by Manual count 01/12/2023 09:39:37 0.29 Above high normal <=0.00 (K/uL) Final Nucleated erythrocytes/100 leukocytes [Ratio] in Blood by Automated count 01/12/2023 09:39:37 Final Acanthocytes [Presence] in Blood by Light microscopy 01/12/2023 09:39:37 Moderate Abnormal None Seen Final Variant lymphocytes [Presence] in Blood by Light microscopy 01/12/2023 09:39:37 Present Abnormal None Seen Final Performing Location [facility] [address] [place] [address]
--- OUTSIDE RECORDS SUMMARY | 2023-05-29 14:22 | External Medical Summary | Summary of Care ---
Author Name Unknown Organization [facility] Address [address] [place] [address] Phone [phone] Care Team Providers Care Fitter Placer Name Role Phone Escobar Iglesias DO Primary Care Provider Reason for Visit * Reason Comments Follow Up Pain Encounter Details Date Type Department Care Team Description 12/24/2022 Telemedicine Palliative Medicine [facility] [address] [place], [place] [id number] Nan Vargas MD [address] [place] [address] Cancer related pain*; Palliative care encounter; Severe protein-energy malnutrition (HCC); Colonic mass Allergies Active Allergy Reactions Severity Noted Date Comments Prochlorperazine Edema face/lips/tongue High 023 documented as of this encounter (statuses as of 12/24/2022) Medications Medication Sig Dispensed Refills Start Date [...] oxyCODONE HCl 5 MG Oral Tablet (Oxy IR)Indications:[place] stasis to liver (HCC),Malignant neoplasm of transverse [...] before bedtime. 90 Tablet 0 12/19/2022 Active documented as of this encounter (statuses as of 12/24/2022) Active Problems Problem Noted Date Metastasis to liver 10/07/2022 Malignant neoplasm of transverse colon 0 10/07/2022 Encounter for antineoplastic chemotherap y 10/07/2022 JOY (generalized anxiety disorder) 09/26 Severe protein-energy malnutrition 09/25 Abdominal mass, right upper quadrant Colonic mass 09/24/2022 Elevated LFTs 09/24/2022 Iron deficiency anemia 09/24/2022 ANTHONY (acute kidney injury) 09/24/2022 documented as of this encounter (statuses as of 12/24/2022) Social History Tobacco Use Types Packs/Day Years [...] as of this encounter Progress Notes * Nan Vargas MD - 12/24/2022 3:23 PM EDT Palliative Medicine Outpatient Progress Note IN HOME TELEMEDICINE VISIT [facility], [facility] [address] [place] [id number] Name: Escobar Reagan Date: 12/24/2022 I was in a hospital or clinic location. After connecting through televideo, patient was verified with two unique identifiers. Patient (or authorized legal applications sales representative) was then informed that this was a Telemedicine visit and being conducted confidentially over secure lines. Methods to assure confidentiality were taken. Patient acknowledged consent and understanding of privacy and security of the Telemedicine visit. The patient agreed to participate. 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 Feels kind of weak overall, feels he should be doing more, but has to go a bit slower. L leg not working as well, didn't fall, had an US recently to rule out DVT which was negative. Is going to see chiropracter soon. Palliative ROS: Pain: Hasn't had pain Nausea/Vomiting: Only when eats a lot and drinks too much, then feels sick. Trying to have smaller amounts. Constipation: Working regularly Confusion: no Sleep: sleeping fine ROS: See HPI. All others negative. SHx: No changes FHx: No changes No past medical history on file. Decision-making Capacity: Does Patient have Decisional Capacity? y Does Patient have a Healthcare Agent? Y, family Advanced Care Planning (see ACP Tab): AD in EMR: no POLST in EMR: yes see EMR Examination: No vital signs as visit completed via telemedicine. Constitutional: no acute distress, chronically ill HENT: normocephalic, atraumatic. Eyes: anicteric, sclera and conjunctiva normal. Neck: no stridor Chest: normal respiratory effort Abdominal: nondistended Extremities: no edema Data Review: External notes reviewed: hem onc notes reviewed Lab / Imaging Results: CEA 43, Cr 1.1, normal History obtained from: pt and DIL Discussion with other team members: no ASSESSMENT/PLAN: Escobar Reagan is a 77 year old male seen in follow-up for goals of care and pain and symptom management. Stage IV colon CA, mets to liver and lung - Wants to continue chemo at this time Anxiety - Previously sent in refill of mirtazapne 30mg tab - Declines therapy but I think he would do well w/it 3. Back pain - new - Advised to be careful with chiropractor manipulation as they do not have any imaging of his back - offered MRI with pain mx referral which would be next step - He will see this chayo locally first then let us know Follow up in 2-3 mo I spent a total of 25 minutes on the date of service in preparation, delivery, and documentation ofthe care provided to Escobar Reagan. Nan Vargas MD Palliative Medicine Physician [facility] Office: [phone] 12/24/2022 documented in this encounter Plan of Treatment Upcoming Encounters Date Type Specialty Care Team Description 12/25/2022 Immunization/Injection Hematology Oncolog y Nurse, Med [address] [place] [address] 01/01/2023 Imaging Radiology 01/05/2023 Laboratory Laboratory [place], Lab Scenery [address] [place] [address] 01/06/2023 Office Visit Hematology Oncology Jeff Robbins MD [address] [place] [address] 01/06/2023 Hem/Onc Treatment Hematology Oncology Alejandrina, Chair 7 Hem Onc Scenery [address] [place] [address] 01/08/2023 Office Visit Gastroenterology Andreea Goodman DO [address] [place] [address] Health Maintenance Due Date Last Done Comments Pneumococcal Vaccine: 65+ Years (1 - PCV) 07/15/1951 Depression Screening, Annual for Pts 12 and Over 1957 DTaP,Tdap,and Td Vaccines (1 - Tdap) [...] this encounter Medical Devices Implanted Type Area Cnc Milling Machine Operator Device Identifier Shelf Expiration Date Model / Serial / Lot Power Port 8fr Sngl Lumen Plas - [id number] Implanted:Qty : 1 on 10/22/2022 by James Baeza DO at OR [facility] Right: Chest CR BARD : PERIPHERAL VASCULAR [id number] 02/25/2024 [id number] / / [id number] documented as of this encounter Visit Diagnoses Diagnosis Cancer related pain- Primary Neoplasm related pain (acute) (chronic) Palliative care encounter Encounter for palliative care Severe protein-energy malnutrition (HCC) Other severe protein-calorie malnutrition Colonic mass Other specified disorder of intestines documented in this encounter Advance Directives Documents on File Type Date Recorded Patient Development Vice President Expl 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 Question Answer Comments Discussion of Advance Directives occurred with: Patient Care Teams Fitter Placer Relationship Specialty Start Date End Date Escobar Iglesias DO [address] [place] [address] PCP - General Family Medicine 10/07/22 documented as of this encounter
--- OUTSIDE RECORDS SUMMARY | 2023-05-29 14:22 | External Medical Summary | Summary of Care ---
Author Name Unknown Organization [facility] Address [address] [place] [address] Phone [phone] Care Team Providers Care Cleaner Carpet And Upholstery Name Role Phone Escobar Iglesias DO Primary Care Provider Reason for Visit * Reason Comments Chemotherapy C5D1 Folfox * Episode Based Medications (Routine) - Authorized Specialty Diagnoses / Procedures Referred By Contac t Referred To Contact Diagnoses 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) Encounter for antineoplastic chemotherapy Procedures VA LEUCOVORIN CALCIUM INJECTION VA PALONOSETRON HCL VA FLUOROURACIL INJECTION VA OXALIPLATIN Jeff Robbins MD [address] [place] [address] Anc Hem/Onc Scenery Alejandrina [address] [place] [place] [phone] Referral ID Status Reason Start Date Expiration Date V isits Requested Visits Authorized [id number] Authorized 10/08/2022 10/09/2023 999 999 Encounter Details Date Type Department Care Team Description 12/09/2022 Hem/Onc Treatment Hematology/Oncology Treatment, [place] [address] [place] [address] Alejandrina, Chair 2 Hem Onc Scenery [address] [place] [address] 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)*; Malignant neoplasm of transverse colon (HCC); Encounter for antineoplastic chemotherapy Allergies Active Allergy Reactions Severity Noted Date Comments Prochlorperazine Edema face/lips/tongue High 023 documented as of this encounter (statuses as of 12/09/2022) Medications Medication Sig Dispensed Refills Start Date [...] HCl 0.1 % Nasal Solution Administer 1 [place] into nostril in the morning and 1 [place] before bedtime. 0 Active Escitalopram Oxalate 10 MG Oral Tablet (Lexapro) Take 1 Tablet by mouth in the morning. 0 Active oxyCODONE HCl 5 MG Oral Tablet (Oxy IR)Indications:[place] stasis to liver (HCC),Malignant neoplasm of transverse [...] 1 Tablet before bedtime. 90 Tablet 0 11/21/2022 Active documented as of this encounter (statuses as of 12/09/2022) Active Problems Problem Noted Date Metastasis to liver 10/07/2022 Malignant neoplasm of transverse colon 0 10/07/2022 Encounter for antineoplastic chemotherap y 10/07/2022 JOY (generalized anxiety disorder) 09/26 Severe protein-energy malnutrition 09/25 Abdominal mass, right upper quadrant Colonic mass 09/24/2022 Elevated LFTs 09/24/2022 Iron deficiency anemia 09/24/2022 ANTHONY (acute kidney injury) 09/24/2022 documented as of this encounter (statuses as of 12/09/2022) Social History Tobacco Use Types Packs/Day Years [...] Nursing Notes * Rachel Rogers RN - 12/09/2022 2:31 PM EDT Functional status at today's visit: Restricted in [...] Pt remained free of injury during treatment today. Patient tolerated treatment well and was connected to home 5FU infusion pump. He wasdischarged in stable condition, aware of upcoming appointment this afternoon at [facility]. No coverage needed today. * Rachel Rogers RN - 12/09/2022 12:00 PM EDT Chair 11 Pt was seen by Eli PEOPLES today, see office notes. Will proceed with treatment as planned.VAD accessed without difficulty, good blood return noted, flushed with NSS and fluids infusing. Safety and Risk for Injury Patient will remain free from injury. Ensure appropriate safety devices are available. Provide and maintain safe environment. documented in this encounter Plan of Treatment Upcoming Encounters Date Type Specialty Care Team Description 12/09/2022 Imaging Radiology Arrived 12/11/2022 Immunization/Injection Hematology Oncolog y Nurse, Med 4 [address] [place] [address] 12/22/2022 Laboratory Laboratory [place], Lab Scenery [address] [facility] [place] [address] 12/23/2022 Hem/Onc Treatment Hematology Oncology [place], Chair 1 Hem Onc Scenery [address] [facility] [place] [address] 12/24/2022 Office Visit Palliative Medicine Nan Vargas MD [address] [place] [address] [place] [address] 01/01/2023 Imaging Radiology 01/05/2023 Laboratory Laboratory [place], Lab Scenery [address] [place] [address] 01/06/2023 Office Visit Hematology Oncology Jeff Robbins MD [address] [place] [address] 01/06/2023 Hem/Onc Treatment Hematology Oncology Alejandrina, Chair 7 Hem Onc Scenery [address] [place] [address] 01/08/2023 Office Visit Gastroenterology Andreea Goodman, [address] [place] [address] Health Maintenance Due Date Last Done Comments [...] this encounter Medical Devices Implanted Type Area Caser Device Identifier Shelf Expiration Date Model / Serial / Lot Power Port 8fr Sngl Lumen Plas - [id number] Implanted:Qty : 1 on 10/22/2022 by James Baeza DO at OR [facility] Right: Chest CR BARD : PERIPHERAL VASCULAR [id number] 02/25/2024 [id number] / / [id number] documented as of this encounter Visit Diagnoses Diagnosis 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)- Primary 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) Malignant neoplasm of transverse colon Encounter for antineoplastic chemotherapy documented in this encounter Administered Medications Active Administered Medications - up to 3 most recent administrations Medication Order MAR Action Action Date Dose Rate Site D5W IV solution Intravenous, at 50 mL/hr, CONTINUOUS, Starting on Thu12/09/22 at 1215, Until Thu12/09/22 at 2214 Start Infusion 12/09/2022 11:50 AM EDT 500 mL 50 mL/hr diphenhydrAMINE (Benadryl) inj 50 mg 50 mg, IV Push, ONCE PRN Other, Hypersensitivity Reaction, Starting on Thu12/09/22 at 1136, Until Thu12/10/22 at 1135, For 24 hours EPINEPHrine 1 MG/ML inj 0.3 mg 0.3 mg, Intramuscular, ONCE PRN Other, Hypersensitivity Reaction or Anaphylaxis, Starting on Thu12/09/22 at 1136, Until Thu12/10/22 at 1135, For 24 hours hEParin 100 UNIT/ML Lock Flush inj 500 Units 500 Units (5 mL), IV Lock, PRN Other, IV Flush, Starting on Thu12/09/22 at 1136, Until Thu12/10/22 at 1135, For 24 hours, Do not flush if lock, PICC, or central line not in place; IV infusing or unable to flush. Hydrocortisone Sod Suc (PF) (Solu-Cortef) inj 100 mg 100 mg, IV Push, ONCE PRN Other, Hypersensitivity Reaction, Starting on Thu12/09/22 at 1136, Until Thu12/10/22 at 1135, For 24 hours oxygen GAS Inhalation, OXYGEN, First dose on Thu12/09/22 at 1600, Until Discontinued, Device/Managed by: Low [...] Push, PRN Other, IV Flush, Starting on Thu12/09/22 at 1136, Until Thu12/10/22 at 1135, For 24 hours, Do not flush if lock, PICC, or central line not in place; IV infusing or unable to flush. Given 12/09/2022 2:17 PM EDT 10 mL Inactive Administered Medications - up to 3 most recent administrations Medication Order MAR Action Action Date Dose Rate Site Dexamethasone (Decadron) tab 12 mg 12 mg, Oral, ONCE, On Thu12/09/22 at 1215, For 1 dose Given 12/09/2022 11:53 AM EDT 12 mg Fluorouracil (5-Fu) 4,175 mg for Home Infusion 4,175 mg (rounded from 4,176 mg = 2,400 mg/m2 1.74 m2 Order-specific BSA), Intravenous, Administer over 46 Hours, Home Infusion Pharmacy to specify base solution and volume., ONCE, 1 dose, On Thu12/09/22 at 1315 Start Infusion 12/09/2022 2:20 PM EDT 4,175 mg 5 mL/hr Fluorouracil (5-Fu) inj 700 mg 700 mg (rounded from 696 mg = 400 mg/m2 1.74 m2 Order-specific BSA), IV Push, ONCE, 1 dose, On Thu12/09/22 at 1300 Given 12/09/2022 2:17 PM EDT 700 mg leucovorin calcium 700 mg in D5W 250 mL INFUSION 700 mg (rounded from 696 mg = 400 mg/m2 1.74 m2 Order-specific BSA), IV Piggyback, ONCE, 1 dose, On Thu12/09/22 at 1215, Administer over 120 Minutes, Before 5-FU Start Infusion 12/09/2022 12:12 PM EDT 700 mg 125 mL/hr Oxaliplatin (Eloxatin) 150 mg in D5W 500 mL infusion 150 mg (rounded from 147.9 mg = 85 mg/m2 1.74 m2 Order-specific BSA), IV Piggyback, ONCE, 1 dose, On Thu12/09/22 at 1215, Administer over 120 Minutes, Flush with D5W only! Start Infusion 12/09/2022 12:12 PM EDT 150 mg 250 mL/hr Palonosetron (Aloxi) inj SOLN 0.25 mg 0.25 mg, IV Push, ONCE, On Thu12/09/22 at 1215, For 1 dose, Restricted per [facility] antiemetic guidelines Given 12/09/2022 11:54 AM EDT 0.25 mg documented in this encounter Advance Directives Documents on File Type Date Recorded Patient It Application Architect Expl 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 Question Answer Comments Discussion of Advance Directives occurred with: Patient Care Teams Cleaner Carpet And Upholstery Relationship Specialty Start Date End Date Escobar Iglesias, [address] [place] [address] PCP - General Family Medicine 10/07/22 documented as of this encounter
--- OUTSIDE RECORDS SUMMARY | 2023-05-29 14:22 | External Medical Summary | Summary of Care ---
Author Name Unknown Organization [facility] Address [address] [place] [address] Phone [phone] Care Team Providers Care Pen Maker Name Role Phone Escobar Iglesias DO Primary Care Provider Reason for Visit * Reason Onset Date Comments Medication Refill 12/19/2022 Encounter Details Date Type Department Care Team Description 12/19/2022 Refill Palliative Medicine, [facility] [address] 5th [address] [place], [place] [phone] Jamel Wilder MD [address] [place] [address] Allergies Active Allergy Reactions Severity Noted Date Comments Prochlorperazine Edema face/lips/tongue High 023 documented as of this encounter (statuses as of 12/19/2022) Medications Medication Sig Dispensed Refills Start Date [...] Active Ondansetron HCl 8 MG Oral Tablet (Zofran)Indicati ons: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),Malignant neoplasm of transverse colon (HCC) Take 1 Tablet by mouth every 8 hours as needed for Nausea. 30 Tablet 2 10/07/2022 Active Azelastine HCl 0.1 % Nasal Solution Administer 1 [place] into nostril in the morning and 1 [place] before bedtime. 0 Active Escitalopram Oxalate 10 MG Oral Tablet (Lexapro) Take 1 Tablet by mouth in the morning. 0 Active oxyCODONE HCl 5 MG Oral Tablet (Oxy IR)Indications:M etastasis to liver (HCC),Malignant neoplasm of transverse colon (HCC) Take 1 Tablet by mouth every 4 hours as needed for Pain, Moderate. 30 Tablet 0 10/10/2022 Active Mirtazapine 30 MG Oral Tablet (Remeron)Indicat ions:Anxiety disorder due to medical condition Take 1 Tablet by mouth at bedtime. 60 Tablet 0 11/12/2022 Active busPIRone HCl 10 MG Oral Tablet (Buspar) Take 1 Tablet by mouth in the morning and 1 Tablet at noon and 1 Tablet before bedtime. 90 Tablet 0 12/19/2022 Active busPIRone HCl 10 MG Oral Tablet (Buspar) Take 1 Tablet by mouth in the morning and 1 Tablet at noon and 1 Tablet before bedtime. 90 Tablet 0 11/21/2022 12/19/2022 Discontinue d(Refill) documented as of this encounter (statuses as of 12/19/2022) Active Problems Problem Noted Date Metastasis to liver 10/07/2022 Malignant neoplasm of transverse colon 0 10/07/2022 Encounter for antineoplastic chemotherap y 10/07/2022 JOY (generalized anxiety disorder) 09/26 Severe protein-energy malnutrition 09/25 Abdominal mass, right upper quadrant Colonic mass 09/24/2022 Elevated LFTs 09/24/2022 Iron deficiency anemia 09/24/2022 ANTHONY (acute kidney injury) 09/24/2022 documented as of this encounter (statuses as of 12/19/2022) Social History Tobacco Use Types Packs/Day Years [...] Telephone Encounter - Jamel Wilder MD - 12/19/2022 2:18 PM EDT Signed Prescriptions: Disp Refills busPIRone HCl 10 MG Oral Tablet (Buspar) 90 Tab*0 Sig: Take 1 Tablet by mouth in the morning and 1 Tablet at noon and 1 Tablet before bedtime. Authorizing Provider: JAMEL WILDER * Telephone Encounter - GILBERT Dover Tech - 12/19/2022 2:11 PM EDT Did you pend patient's preferred pharmacy and medication before forwarding?yes Pharmacy: [id number] [address] Pending Prescriptions: Disp Refills busPIRone HCl 10 MG Oral Tablet (Buspar) 90 Tab*0 Sig: Take 1 Tablet by mouth in the morning and 1 Tablet at noon and 1 Tablet before bedtime. Last Visit: 10/22/2022 (in office), Visit date not found (telemedicine) Next Visit: Visit date not found If no future appointments scheduled, and last appointment is greater than a year ago, please schedule patient for a follow-up appointment Last date the medication was ordered: 11/21/2022 Is this request for a controlled substance?No Urine Drug Screen:No results found for this or any previous visit. Patient Phone Numbers Labs: Lab Results Component Value Date/Time CREAT 0.9 12/08/2022 10:02 AM POTASSIUM 3.8 12/08/2022 10:02 AM LDLCALC 129 07/22/2022 10:44 AM ALT 22 12/08/2022 10:02 AM documented in this encounter Plan of Treatment Upcoming Encounters Date Type Specialty Care Team Description 12/22/2022 Laboratory Laboratory [facility] Lab Scenery [address] [place] [address] 12/23/2022 Hem/Onc Treatment Hematology Oncology Alejandrina, Chair 1 Hem Onc Scenery [address] [place] [address] 12/24/2022 Telemedicine Palliative Medicine Jamel Wilder MD [address] [place], [place] [address] [id number] 01/01/2023 Imaging Radiology 01/05/2023 Laboratory Laboratory [facility] Lab Scenery [address] [facility] [address] 01/06/2023 Office Visit Hematology Oncology Jeff Robbins MD [address] [place] [address] 01/06/2023 Hem/Onc Treatment Hematology Oncology [place], Chair 7 Hem Onc Scenery [address] [place] [address] 01/08/2023 Office Visit Gastroenterology Andreea Goodman DO [address] [place] [address] Health Maintenance Due Date Last Done Comments [...] this encounter Medical Devices Implanted Type Area Finish Photographer Device Identifier Shelf Expiration Date Model / Serial / Lot Power Port 8fr Sngl Lumen Plas - [id number] Implanted:Qty : 1 on 10/22/2022 by James Baeza DO at OR [facility] Right: Chest CR BARD : PERIPHERAL VASCULAR [id number] 02/25/2024 [id number] / / [id number] documented as of this encounter Advance Directives Documents on File Type Date Recorded Patient Licensed Clinician Expl 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 Question Answer Comments Discussion of Advance Directives occurred with: Patient Care Teams Pen Maker Relationship Specialty Start Date End Date Escobar Iglesias, DO [address] [place] [address] PCP - General Family Medicine 10/07/22 documented as of this encounter
--- OUTSIDE RECORDS SUMMARY | 2023-05-29 14:22 | External Medical Summary | Summary of Care ---
Author Name Unknown Organization [facility] Address [address] [place] [address] Phone [phone] Care Team Providers Care Chief Operator Name Role Phone Escobar Iglesias DO Primary Care Provider Reason for Visit * Reason Comments Chemotherapy C6D1 FOLFOX * Episode Based Medications (Routine) - Authorized Specialty Diagnoses / Procedures Referred By Contac t Referred To Contact Diagnoses 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) Encounter for antineoplastic chemotherapy Procedures MA LEUCOVORIN CALCIUM INJECTION MA PALONOSETRON HCL MA FLUOROURACIL INJECTION MA OXALIPLATIN Jeff Robbins MD [address] [place] [address] Anc Hem/Onc Scenery Alejandrina [address] [place] [phone] Referral ID Status Reason Start Date Expiration Date V isits Requested Visits Authorized [id number] Authorized 10/08/2022 10/09/2023 999 999 Encounter Details Date Type Department Care Team Description 12/23/2022 Hem/Onc Treatment Hematology/Oncology Treatment, [place] [address] [place] [address] Alejandrina, Chair 1 Hem Onc Scenery [address] [place] [address] 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)*; Malignant neoplasm of transverse colon (HCC); Encounter for antineoplastic chemotherapy Allergies Active Allergy Reactions Severity Noted Date Comments Prochlorperazine Edema face/lips/tongue High 023 documented as of this encounter (statuses as of 12/23/2022) Medications Medication Sig Dispensed Refills Start Date [...] HCl 0.1 % Nasal Solution Administer 1 [place] into nostril in the morning and 1 [place] before bedtime. 0 Active Escitalopram Oxalate 10 MG Oral Tablet (Lexapro) Take 1 Tablet by mouth in the morning. 0 Active oxyCODONE HCl 5 MG Oral Tablet (Oxy IR)Indications:[place] stasis to liver (HCC),Malignant neoplasm of transverse [...] as of this encounter (statuses as of 12/23/2022) Active Problems Problem Noted Date Metastasis to liver 10/07/2022 Malignant neoplasm of transverse colon 0 10/07/2022 Encounter for antineoplastic chemotherap y 10/07/2022 JOY (generalized anxiety disorder) 09/26 Severe protein-energy malnutrition 09/25 Abdominal mass, right upper quadrant Colonic mass 09/24/2022 Elevated LFTs 09/24/2022 Iron deficiency anemia 09/24/2022 ANTHONY (acute kidney injury) 09/24/2022 documented as of this encounter (statuses as of 12/23/2022) Social History Tobacco Use Types Packs/Day Years [...] Sign Reading Time Taken Comments Blood Pressure 127/94 12/23/2022 12:02 PM EDT Pulse 72 12/23/2022 12:02 PM EDT Temperature 36.2 C (97.2 F) 12/23/2022 1 2:02 PM EDT Respiratory Rate 18 12/23/2022 12:0 2 PM EDT Oxygen Saturation 98% 12/23/2022 12: 02 PM EDT Inhaled Oxygen Concentration - - Weight 70.2 kg (154 lb 12.8 oz) 023 12:02 PM EDT Height - - Body Mass Index 25 10/22/2022 12:03 PM EDT documented in this [...] Notes * Leonora De Leon RN - 12/23/2022 2:32 PM EDT Functional status at today's visit: [...] risk for falls r/t ambulating with IV pole, risk for reaction to treatment Stability of the patient: Moderately stable - low risk of patient condition declining or worsening Summary regarding today's goals: Met: pt tolerated treatment well and remained free from injury 5FU push given, positive blood return noted. 5FU continuous ball started, all clamps open. Reviewednext appt time with patient for pump d/c. Pt verbalizes understanding. Patient discharged in stablecondition. * Leonora De Leon RN - 12/23/2022 12:03 PM EDT Chair 2 Chemo agents C6D1 FOLFOX Appetite good Nausea/Vomiting patient states that he has never had a problem until the last 3 days, he had some vomiting in the afternoon. His gave him his anti-nausea medication and he had relief. Diarrhea none Constipation none Mucositis none Fatigue energy is low Bleeding none Infection none Rash none Numbness tingling none Pain none Radiation none ABN Labs WNL for treatment today Alt in Tx: none Return in 2 days for pump d/c Safety and Risk for Injury Patient will remain free from injury. Ensure appropriate safety devices are available. Provide and maintain safe environment. documented in this encounter Plan of Treatment Upcoming Encounters Date Type Specialty Care Team Description 12/24/2022 Telemedicine Palliative Medicine Nan Vargas MD [address] [place] [address] [place] [address] 12/25/2022 Immunization/Injection Hematology Oncolog y Nurse, Med 4 [address] [place] [address] 01/01/2023 Imaging Radiology 01/05/2023 Laboratory Laboratory [place], Lab Scenery [address] [place] [address] 01/06/2023 Office Visit Hematology Oncology Jeff Robbins MD [address] [place] [address] 01/06/2023 Hem/Onc Treatment Hematology Oncology [place], Chair 7 Hem Onc Scenery [address] [place] [address] 01/08/2023 Office Visit Gastroenterology Andreea Goodman, [address] [place] [address] Health Maintenance Due Date Last Done Comments [...] encounter Medical Devices Implanted Type Area Certified Nursing Assistant Device Identifier Shelf Expiration Date Model / Serial / Lot Power Port 8fr Sngl Lumen Plas - [id number] Implanted:Qty : 1 on 10/22/2022 by James Baeza, DO at OR [facility] Right: Chest CR BARD : PERIPHERAL VASCULAR [id number] 02/25/2024 [id number] / / [id number] documented as of this encounter Visit Diagnoses [...] Intravenous, at 50 mL/hr, CONTINUOUS, Starting on Thu12/23/22 at 1215, Until Thu12/23/22 at 2214 Start Infusion 12/23/2022 11:30 AM EDT 500 mL 50 mL/hr diphenhydrAMINE (Benadryl) inj 50 mg 50 mg, IV Push, ONCE PRN Other, Hypersensitivity Reaction, Starting on Thu12/23/22 at 1135, Until Thu12/24/22 at 1134, For 24 hours EPINEPHrine 1 MG/ML inj 0.3 mg 0.3 mg, Intramuscular, ONCE PRN Other, Hypersensitivity Reaction or Anaphylaxis, Starting on Thu12/23/22 at 1135, Until Thu12/24/22 at 1134, For 24 hours hEParin 100 UNIT/ML Lock Flush inj 500 Units 500 Units (5 mL), IV Lock, PRN Other, IV Flush, Starting on Thu12/23/22 at 1135, Until Thu12/24/22 at 1134, For 24 hours, Do not flush if lock, PICC, or central line not in place; IV infusing or unable to flush. Hydrocortisone Sod Suc (PF) (Solu-Cortef) inj 100 mg 100 mg, IV Push, ONCE PRN Other, Hypersensitivity Reaction, Starting on Thu12/23/22 at 1135, Until Thu12/24/22 at 1134, For 24 hours oxygen GAS Inhalation, OXYGEN, First dose on Thu12/23/22 at 1600, Until Discontinued, Device/Managed by: Low [...] Push, PRN Other, IV Flush, Starting on Thu12/23/22 at 1135, Until Thu12/24/22 at 1134, For 24 hours, Do not flush if lock, PICC, or central line not in place; IV infusing or unable to flush. Given 12/23/2022 2:13 PM EDT 10 mL Inactive Administered Medications - up to 3 most recent administrations Medication Order MAR Action Action Date Dose Rate Site Dexamethasone (Decadron) tab 12 mg 12 mg, Oral, ONCE, On Thu12/23/22 at 1215, For 1 dose Given 12/23/2022 11:51 AM EDT 12 mg Fluorouracil (5-Fu) 4,175 mg for Home Infusion 4,175 mg (rounded from 4,176 mg = 2,400 mg/m2 1.74 m2 Order-specific BSA), Intravenous, Administer over 46 Hours, Home Infusion Pharmacy to specify base solution and volume., ONCE, 1 dose, On Thu12/23/22 at 1315 Start Infusion 12/23/2022 2:15 PM EDT 4,175 mg 5 mL/hr Fluorouracil (5-Fu) inj 700 mg 700 mg (rounded from 696 mg = 400 mg/m2 1.74 m2 Order-specific BSA), IV Push, ONCE, 1 dose, On Thu12/23/22 at 1300 Given 12/23/2022 2:13 PM EDT 700 mg leucovorin calcium 700 mg in D5W 250 mL INFUSION 700 mg (rounded from 696 mg = 400 mg/m2 1.74 m2 Order-specific BSA), IV Piggyback, ONCE, 1 dose, On Thu12/23/22 at 1215, Administer over 120 Minutes, Before 5-FU Start Infusion 12/23/2022 12:11 PM EDT 700 mg 125 mL/hr Oxaliplatin (Eloxatin) 150 mg in D5W 500 mL infusion 150 mg (rounded from 147.9 mg = 85 mg/m2 1.74 m2 Order-specific BSA), IV Piggyback, ONCE, 1 dose, On e 12/23/22 at 1215, Administer over 120 Minutes, Flush with D5W only! Start Infusion 12/23/2022 12:11 PM EDT 150 mg 250 mL/hr Palonosetron (Aloxi) inj SOLN 0.25 mg 0.25 mg, IV Push, ONCE, On Thu12/23/22 at 1215, For 1 dose, Restricted per [facility] antiemetic guidelines Given 12/23/2022 11:51 AM EDT 0.25 mg documented in this encounter Advance Directives Documents on File Type Date Recorded Patient Dependency Program Director Expl 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 Question Answer Comments Discussion of Advance Directives occurred with: Patient Care Teams Chief Operator Relationship Specialty Start Date End Date Escobar Iglesias, DO [address] [place] [address] PCP - General Family Medicine 10/07/22 documented as of this encounter
--- OUTSIDE RECORDS SUMMARY | 2023-05-29 14:22 | External Medical Summary ---
Author Name Unknown Address Unknown Organization K09:[facility] [address] [place] [address] Laboratory Report Ordering Provider Test Date Status RASHAAD BARAHONA 12/22/2022 09:30:26 Final Observation Date Value Abnormality Reference (Units ) Status BUN 12/22/2022 09:30:26 28 Above high normal 6-20 (mg/dL) Final Creatinine 12/22/2022 09:30:26 1.1 0.6-1.2 (mg/dL) Final Glomerular filtration rate/1.73 sq M.predicted [Volume Rate/Area] in Serum, Plasma or Blood by Creatinine-based formula (CKD-EPI) 12/22/2022 09:30:26 73 >=60 (mL/min) Final eGFR is calculated based on the CKD-EPI 2020 equation SODIUM 12/22/2022 09:30:26 140 135-146 (m mol/L) Final Potassium 12/22/2022 09:30:26 3.4 Below low normal 3.5 -5.1 (mmol/L) Final Cl 12/22/2022 09:30:26 105 98-107 (mm ol/L) Final CO2 12/22/2022 09:30:26 25 22-32 (mmo l/L) Final Anion gap 12/22/2022 09:30:26 10 7-15 (mmol /L) Final Glucose 12/22/2022 09:30:26 113 70-120 (mg /dL) Final Albumin 12/22/2022 09:30:26 2.8 Below low normal 3.8 -5.0 (g/dL) Final AST (Aspartate aminotransferase) 12/22/2022 09:30:26 41 10-50 (U/L) Fin al Alk Phos 12/22/2022 09:30:26 287 Above high normal 35 -130 (U/L) Final Bilirubin, Total 12/22/2022 09:30:26 0.6 <=1 .2 (mg/dL) Final Calcium 12/22/2022 09:30:26 8.8 8.4-10.2 ( mg/dL) Final Protein 12/22/2022 09:30:26 5.7 Below low normal 6.0 -8.3 (g/dL) Final ALT (Alanine aminotransferase) 12/22/2022 09:30:26 25 10-50 (U/L) Tres ordonez Performing Location [facility] [address] [place] [address]
--- OUTSIDE RECORDS SUMMARY | 2023-05-29 14:22 | External Medical Summary ---
Author Name Unknown Address Unknown Organization K09:[facility] [address] [place] [address] Laboratory Report Ordering Provider Test Date Status RASHAAD BARAHONA 01/05/2023 09:30:39 Final Observation Date Value Abnormality Reference (Units ) Status BUN 01/05/2023 09:30:39 28 Above high normal 6-20 (mg/dL) Final Creatinine 01/05/2023 09:30:39 1.0 0.6-1.2 (mg/dL) Final Glomerular filtration rate/1.73 sq M.predicted [Volume Rate/Area] in Serum, Plasma or Blood by Creatinine-based formula (CKD-EPI) 01/05/2023 09:30:39 75 >=60 (mL/min) Final eGFR is calculated based on the CKD-EPI 2020 equation SODIUM 01/05/2023 09:30:39 141 135-146 (m mol/L) Final Potassium 01/05/2023 09:30:39 2.7 Below low normal 3.5 -5.1 (mmol/L) Final Cl 01/05/2023 09:30:39 107 98-107 (mm ol/L) Final CO2 01/05/2023 09:30:39 22 22-32 (mmo l/L) Final Anion gap 01/05/2023 09:30:39 12 7-15 (mmol /L) Final Glucose 01/05/2023 09:30:39 131 Above high normal 70 -120 (mg/dL) Final Albumin 01/05/2023 09:30:39 2.8 Below low normal 3.8 -5.0 (g/dL) Final AST (Aspartate aminotransferase) 01/05/2023 09:30:39 33 10-50 (U/L) Fin al Alk Phos 01/05/2023 09:30:39 255 Above high normal 35 -130 (U/L) Final Bilirubin, Total 01/05/2023 09:30:39 0.8 <=1 .2 (mg/dL) Final Calcium 01/05/2023 09:30:39 8.6 8.4-10.2 ( mg/dL) Final Protein 01/05/2023 09:30:39 5.6 Below low normal 6.0 -8.3 (g/dL) Final ALT (Alanine aminotransferase) 01/05/2023 09:30:39 22 10-50 (U/L) Tres ordonez Performing Location [facility] [address] [place] [address]
--- OUTSIDE RECORDS SUMMARY | 2023-05-29 14:22 | External Medical Summary | Summary of Care ---
Author Name Unknown Organization [facility] Address [address] [place] [address] Phone [phone] Care Team Providers Care Magnetizer Name Role Phone Escobar Iglesias DO Primary [...] INJECTION [place] OXALIPLATIN Jeff Robbins MD 200 [facility] [place] [address] Anc Hem/Onc [facility] [address] [place] [address] Referral ID Status Reason Start Date Expiration Date V isits Requested Visits Authorized [id number] Authorized 10/08/2022 10/09/2023 999 999 Encounter Details Date Type Department Care Team Description 12/11/2022 Immunization/I njection Hematology/Oncology Treatment, [place] [address] [place] [address] [place] [address] Nurse, Med [address] [address] 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)*; Malignant neoplasm of transverse colon (HCC); Encounter for antineoplastic chemotherapy Allergies Active Allergy Reactions Severity Noted Date Comments Prochlorperazine Edema face/lips/tongue High 023 documented as of this encounter (statuses as of 12/11/2022) Medications Medication Sig Dispensed Refills Start Date [...] HCl 0.1 % Nasal Solution Administer 1 [place] into nostril in the morning and 1 [place] before bedtime. 0 Active Escitalopram Oxalate 10 MG Oral Tablet (Lexapro) Take 1 Tablet by mouth in the morning. 0 Active oxyCODONE HCl 5 MG Oral Tablet (Oxy IR)Indications:[place] stasis to liver (HCC),Malignant neoplasm of transverse [...] as of this encounter (statuses as of 12/11/2022) Active Problems Problem Noted Date Metastasis to liver 10/07/2022 Malignant neoplasm of transverse colon 0 10/07/2022 Encounter for antineoplastic chemotherap y 10/07/2022 JOY (generalized anxiety disorder) 09/26 Severe protein-energy malnutrition 09/25 Abdominal mass, right upper quadrant Colonic mass 09/24/2022 Elevated LFTs 09/24/2022 Iron deficiency anemia 09/24/2022 ANTHONY (acute kidney injury) 09/24/2022 documented as of this encounter (statuses as of 12/11/2022) Social History Tobacco Use Types Packs/Day Years [...] Notes * Leonora De Leon RN - 12/11/2022 12:25 PM EDT Chair 6 Patient presents to the clinic today for pump disconnect. 5FU home infusion completed. CVAD flushedwith 10 mL NS, positive blood return noted. Heparin locked. Pederson needle removed intact. Patient discharged in stable condition. documented in this encounter Plan of Treatment Upcoming Encounters Date Type Specialty Care Team Description 12/22/2022 Laboratory Laboratory [place], Lab Scenery [address] [place] [address] 12/23/2022 Hem/Onc Treatment Hematology Oncology [place], Chair 1 Hem Onc Scenery [address] [place] [address] 12/24/2022 Office Visit Palliative Medicine Nan Vargas MD [address] [facility] [place] [address] 01/01/2023 Imaging Radiology 01/05/2023 Laboratory Laboratory [place], Lab Scenery [address] [place] [address] 01/06/2023 Office Visit Hematology Oncology Jeff Robbins MD [address] [place] [address] 01/06/2023 Hem/Onc Treatment Hematology Oncology [place], Chair 7 Hem Onc Scenery [address] [place] [address] 01/08/2023 Office Visit Gastroenterology Andreea Goodman, DO [address] [place] [address] Health Maintenance Due Date Last Done Comments [...] this encounter Medical Devices Implanted Type Area Administrative Operations Coordinator Device Identifier Shelf Expiration Date Model / Serial / Lot Power Port 8fr Sngl Lumen Plas - [id number] Implanted:Qty : 1 on 10/22/2022 by James Baeza DO at OR [facility] Right: Chest CR BARD : PERIPHERAL VASCULAR [id number] 02/25/2024 [id number] / / [id number] documented as of this encounter Visit Diagnoses [...] PRN Other, IV Flush, Starting on Mamie 12/11/22 at 1220, Until Thu12/12/22 at 1219, For 24 hours, Do not flush if lock, PICC, or central line not in place; IV infusing or unable to flush. Given 12/11/2022 12:22 PM EDT 500 Units sodium chloride 0.9 % flush central line 10 mL 10 mL, IV Push, PRN Other, IV Flush, Starting on Mamie 12/11/22 at 1220, Until Thu12/12/22 at 1219, For 24 hours, Do not flush if lock, PICC, or central line not in place; IV infusing or unable to flush. Given 12/11/2022 12:22 PM EDT 10 mL documented in this encounter Advance Directives Documents on File Type Date Recorded Patient Director Of Consulting Services Expl 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 Question Answer Comments Discussion of Advance Directives occurred with: Patient Care Teams Magnetizer Relationship Specialty Start Date End Date Escobar Iglesias, DO [address] [place] [address] PCP - General Family Medicine 10/07/22 documented as of this encounter
--- OUTSIDE RECORDS SUMMARY | 2023-05-29 14:22 | External Medical Summary | Summary of Care ---
Author Name Unknown Organization [facility] Address [address] [place] [address] Phone [phone] Care Team Providers Care Laborer [employer] [place] Name Role Phone Escobar Iglesias DO Primary Care Provider Reason for Visit * Reason Comments Procedure 5FU pump disconnect, port flush 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) Encounter for antineoplastic chemotherapy Procedures [place] LEUCOVORIN CALCIUM INJECTION CA PALONOSETRON HCL CA FLUOROURACIL INJECTION CA OXALIPLATIN Jeff Robbins MD 200 [facility] [place] [address] Anc Hem/Onc Scenery [place] [address] [facility] [place] [address] Referral ID Status Reason Start Date Expiration Date V isits Requested Visits Authorized [id number] Authorized 10/08/2022 10/09/2023 999 999 Encounter Details Date Type Department Care Team Description 12/25/2022 Immunization/I njection Hematology/Oncology Treatment, [place] [address] [facility] [place] [address] Nurse, Med [facility] [place] [address] 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)*; Malignant neoplasm of transverse colon (HCC); Encounter for antineoplastic chemotherapy Allergies Active Allergy Reactions Severity Noted Date Comments Prochlorperazine Edema face/lips/tongue High 05/30/2 023 documented as of this encounter (statuses as of 12/25/2022) Medications Medication Sig Dispensed Refills Start Date [...] HCl 0.1 % Nasal Solution Administer 1 [place] into nostril in the morning and 1 [place] before bedtime. 0 Active Escitalopram Oxalate 10 MG Oral Tablet (Lexapro) Take 1 Tablet by mouth in the morning. 0 Active oxyCODONE HCl 5 MG Oral Tablet (Oxy IR)Indications:[place] stasis to liver (HCC),Malignant neoplasm of transverse [...] as of this encounter (statuses as of 12/25/2022) Active Problems Problem Noted Date Metastasis to liver 10/07/2022 Malignant neoplasm of transverse colon 0 10/07/2022 Encounter for antineoplastic chemotherap y 10/07/2022 JOY (generalized anxiety disorder) 09/26 Severe protein-energy malnutrition 09/25 Abdominal mass, right upper quadrant Colonic mass 09/24/2022 Elevated LFTs 09/24/2022 Iron deficiency anemia 09/24/2022 ANTHONY (acute kidney injury) 09/24/2022 documented as of this encounter (statuses as of 12/25/2022) Social History Tobacco Use Types Packs/Day Years [...] as of this encounter Nursing Notes * Franchesca Toure RN - 12/25/2022 12:25 PM EDT Ch 9. Pt arrived today for 5FU pump disconnect. 5FU eclipse ball is compressed and empty. Pt reports he tolerated this cycle 'about like the last'. He reports he has some difficulty walking, but theyr/o a blood clot. He also reports chronic tearing eyes bilat since he started chemo infusions. He denies N/V or bowel concerns. VAD flushed with 10 ml NSS and Heparin 5 ml (100 units/ml). Pederson needle removed intact. Pt discharged in stable condition. documented in this encounter Plan of Treatment Upcoming Encounters Date Type Specialty Care Team Description 01/01/2023 Imaging Radiology 01/05/2023 Laboratory Laboratory [place], Lab Scenery [address] [place] [address] 01/06/2023 Office Visit Hematology Oncology Jeff Robbins MD [address] [place] [address] 01/06/2023 Hem/Onc Treatment Hematology Oncology [place], Chair 7 Hem Onc Scenery [address] [place] [address] 01/08/2023 Office Visit Gastroenterology Andreea Goodman, [address] [place] [address] 03/18/2023 Telemedicine Palliative Medicine [facility] [place] [id number] Health Maintenance Due Date Last Done Comments [...] this encounter Medical Devices Implanted Type Area Lens Coater Device Identifier Shelf Expiration Date Model / Serial / Lot Power Port 8fr Sngl Lumen Plas - [id number] Implanted:Qty : 1 on 10/22/2022 by James Baeza DO at OR [facility] Right: Chest CR BARD : PERIPHERAL VASCULAR [id number] 02/25/2024 [id number] / / [id number] documented as of this encounter Visit Diagnoses [...] PRN Other, IV Flush, Starting on Mamie 12/25/22 at 1216, Until Thu12/26/22 at 1215, For 24 hours, Do not flush if lock, PICC, or central line not in place; IV infusing or unable to flush. Given 12/25/2022 12:18 PM EDT 500 Units sodium chloride 0.9 % flush central line 10 mL 10 mL, IV Push, PRN Other, IV Flush, Starting on Mamie 12/25/22 at 1216, Until Thu12/26/22 at 1215, For 24 hours, Do not flush if lock, PICC, or central line not in place; IV infusing or unable to flush. Given 12/25/2022 12:17 PM EDT 10 mL documented in this encounter Advance Directives Documents on File Type Date Recorded Patient Serology Technician Expl 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 Question Answer Comments Discussion of Advance Directives occurred with: Patient Care Teams Laborer [employer] Relationship Specialty Start Date End Date Escobar Iglesias DO [address] [place] [address] PCP - General Family Medicine 10/07/22 documented as of this encounter
--- OUTSIDE RECORDS SUMMARY | 2023-05-29 14:22 | External Medical Summary | Summary of Care ---
Author Name Unknown Organization [facility] Address [address] [place] [address] Phone [phone] Care Team Providers Care Pile Driver Operator Helper Name Role Phone Escobar Iglesias DO Primary Care Provider Reason for Visit * Reason Onset Date Comments Med Request 01/02/2023 Encounter Details Date Type Department Care Team Description 01/02/2023 Telephone Palliative Medicine, [facility] [address] [facility] 5th Floor [place], [place] [id number] Jamel Wilder MD [address] [place] [address] Med Request Allergies Active Allergy [...] HCl 0.1 % Nasal Solution Administer 1 [place] into nostril in the morning and 1 [place] before bedtime. 0 Active Escitalopram Oxalate 10 MG Oral Tablet (Lexapro) Take 1 Tablet by mouth in the morning. 0 Active oxyCODONE HCl 5 MG Oral Tablet (Oxy IR)Indications:[place] stasis to liver (HCC),Malignant neoplasm of transverse [...] encounter Miscellaneous Notes * Addendum Note - Jamel Wilder MD - 01/05/2023 8:35 AM EDTAddended by: JAMEL WILDER on: 01/05/2023 08:35 AM Modules accepted: Orders * Telephone Encounter - Jamel Wilder MD - 01/05/2023 8:34 AM EDT Sent [...] - 01/05/2023 8:[address] Wilder: Can you call and get more info? [...] blood in stool Very watery Going to this morning for lab work-routine labs Seeing Ros[place] and getting treatment tomorrow Having a lot [...] help him. Please send to [id number] [place] if appropriate. Thank you, Shayy Matt Room Service Manager [facility] ([facility]) (Formerly Telepharmacy) 01/02/2023,3:29 PM documented in this encounter Plan of Treatment Upcoming Encounters Date Type Specialty Care Team Description 01/05/20[address] [place] [address] [address] 01/06/2023 Office Visit Hematology Oncology Jeff Robbins MD [address] [place] [address] 01/06/2023 Hem/Onc Treatment Hematology Oncology [place], Chair 7 Hem Onc Scenery [address] [place] [address] 01/08/2023 Office Visit Gastroenterology Andreea Goodman DO [address] [place] [address] 03/18/2023 Telemedicine Palliative Medicine Eli Mckeon CRNP [address] [place] [address] Health Maintenance Due Date [...] this encounter Medical Devices Implanted Type Area Woodenware Assembler Device Identifier Shelf Expiration Date Model / Serial / Lot Power Port 8fr Sngl Lumen Plas - [id number] Implanted:Qty : 1 on 10/22/2022 by James Baeza DO at OR [facility] Right: Chest CR BARD : PERIPHERAL VASCULAR [id number] 02/25/2024 [id number] / / [id number] documented as of this encounter Visit Diagnoses Diagnosis Chemotherapy induced diarrhea- Primary Diarrhea documented in this encounter Advance Directives Documents on File Type Date Recorded 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 Question Answer Comments Discussion of Advance Directives occurred with: Patient Care Teams Pile Driver Operator Helper Relationship Specialty Start Date End Date Escobar Iglesias DO [address] [place] [address] PCP - General Family Medicine 10/07/22 documented as of this encounter
--- OUTSIDE RECORDS SUMMARY | 2023-05-29 14:22 | External Medical Summary | Summary of Care ---
Author Name Unknown Organization [facility] Address [address] [place] [address] Phone [phone] Care Team Providers Care Senior National Account Manager Name Role Phone Escobar Iglesias DO Primary Care Provider Reason for Visit * Reason Onset Date Comments Med Request 01/02/2023 Encounter Details Date Type Department Care Team Description 01/02/2023 Telephone Palliative Medicine, [facility] [address] [facility] 5th Floor [place], [place] [phone] Nan Vargas MD [address] [place] [address] Med Request Allergies Active Allergy [...] HCl 0.1 % Nasal Solution Administer 1 [place] into nostril in the morning and 1 [place] before bedtime. 0 Active Escitalopram Oxalate 10 MG Oral Tablet (Lexapro) Take 1 Tablet by mouth in the morning. 0 Active oxyCODONE HCl 5 MG Oral Tablet (Oxy IR)Indications:[place] stasis to liver (HCC),Malignant neoplasm of transverse [...] help him. Please send to [id number] [address] if appropriate. Thank you, Shayy Matt Single Needle Tufting Machine Operator [facility] ([facility]) (Formerly Telepharmacy) 01/02/2023,3:29 PM documented in this encounter Plan of Treatment Upcoming Encounters Date Type Specialty Care Team Description 01/05/2023 Laboratory Laboratory [place], Lab Scenery [address] [place] [address] 01/06/2023 Office Visit Hematology Oncology Jeff Robbins MD [address] [place] [address] 01/06/2023 Hem/Onc Treatment Hematology Oncology [place], Chair 7 Hem Onc Scenery [address] [place] [address] 01/08/2023 Office Visit Gastroenterology Andreea Goodman, [address] [place] [address] 03/18/2023 Telemedicine Palliative Medicine Eli Mckeon CRNP [address] [place] [phone] Health Maintenance Due Date Last Done Comments [...] this encounter Medical Devices Implanted Type Area Glass Pulverizer Equipment Operator Device Identifier Shelf Expiration Date Model / Serial / Lot Power Port 8fr Sngl Lumen Plas - [id number] Implanted:Qty : 1 on 10/22/2022 by James Baeza DO at OR [facility] Right: Chest CR BARD : PERIPHERAL VASCULAR [id number] 02/25/2024 [id number] / / [id number] documented as of this encounter Advance Directives Documents on File Type Date Recorded Patient Water Superintendent Expl 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 Question Answer Comments Discussion of Advance Directives occurred with: Patient Care Teams Senior National Account Manager Relationship Specialty Start Date End Date Escobar Iglesias DO [address] [place] [address] PCP - General Family Medicine 10/07/22 documented as of this encounter
--- OUTSIDE RECORDS SUMMARY | 2023-05-29 14:22 | External Medical Summary ---
Author Name Unknown Address Unknown Organization K09[facility] [place] [address] Laboratory Report Ordering Provider Test Date Status RASHAAD BARAHONA 12/22/2022 09:30:26 Final Observation Date Value Abnormality Reference (Units ) Status Nucleated erythrocytes/100 leukocytes [Ratio] in Blood by Automated count 12/22/2022 09:30:26 Final Acanthocytes [Presence] in Blood by Light microscopy 12/22/2022 09:30:26 Moderate Abnormal None Seen Final Elliptocytes [Presence] in Blood by Light microscopy 12/22/2022 09:30:26 Moderate Abnormal None Seen Final Performing Location [facility] [place] [address]
--- OUTSIDE RECORDS SUMMARY | 2023-05-29 14:22 | External Medical Summary ---
Author Name Unknown Address Unknown Organization K09:[facility] [place] [address] Laboratory Report Ordering Provider Test Date Status RASHAAD BARAHONA 01/05/2023 09:30:39 Final Observation Date Value Abnormality Reference (Units ) Status WBC, Total 01/05/2023 09:30:39 1.77 Below low normal 4. 00-10.80 (K/uL) Final RBC 01/05/2023 09:30:39 3.54 4.50-5.25 (M/uL) Final Hemoglobin 01/05/2023 09:30:39 12.2 Below low normal 14 .0-16.8 (g/dL) Final HCT 01/05/2023 09:30:39 35.2 Below low normal 40. 0-48.4 (%) Final MCV 01/05/2023 09:30:39 99.4 82.0-99.5 (fL) Final MCH 01/05/2023 09:30:39 34.5 27.0-34.0 (pg) Final MCHC 01/05/2023 09:30:39 34.7 32.0-36.0 (g/dL) Final RDW 01/05/2023 09:30:39 20.9 11.5-15.5 (%) Final Platelets 01/05/2023 09:30:39 86 Below low normal 140 -400 (K/uL) Final MPV 01/05/2023 09:30:39 9.6 6.6-11.1 ( fL) Final Performing Location [facility] [place] [place] [address]
--- OUTSIDE RECORDS SUMMARY | 2023-05-29 14:22 | External Medical Summary | Summary of Care ---
Author Name Unknown Organization [facility] Address [address] [place] [address] Phone [phone] Care Team Providers Care Comic Writer Name Role Phone Escobar Iglesias DO Primary Care Provider Reason for Visit * Reason Comments Outpatient Testing Encounter Details Date Type Department Care Team Description 12/22/2022 Laboratory Laboratory [facility] [address] [place] [address] [facility] Lab Scenery [address] [place] [address] 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); Malignant neoplasm of transverse colon (HCC) Allergies Active Allergy Reactions Severity Noted Date Comments Prochlorperazine Edema face/lips/tongue High 023 documented as of this encounter (statuses as of 12/22/2022) Medications Medication Sig Dispensed Refills Start Date [...] HCl 0.1 % Nasal Solution Administer 1 [place] into nostril in the morning and 1 [place] before bedtime. 0 Active Escitalopram Oxalate 10 MG Oral Tablet (Lexapro) Take 1 Tablet by mouth in the morning. 0 Active oxyCODONE HCl 5 MG Oral Tablet (Oxy IR)Indications:[place] stasis to liver (HCC),Malignant neoplasm of transverse [...] as of this encounter (statuses as of 12/22/2022) Active Problems Problem Noted Date Metastasis to liver 10/07/2022 Malignant neoplasm of transverse colon 0 10/07/2022 Encounter for antineoplastic chemotherap y 10/07/2022 JOY (generalized anxiety disorder) 09/26 Severe protein-energy malnutrition 09/25 Abdominal mass, right upper quadrant Colonic mass 09/24/2022 Elevated LFTs 09/24/2022 Iron deficiency anemia 09/24/2022 ANTHONY (acute kidney injury) 09/24/2022 documented as of this encounter (statuses as of 12/22/2022) Social History Tobacco Use Types Packs/Day Years [...] Encounters Date Type Specialty Care Team Description 12/23/2022 Hem/Onc Treatment Hematology Oncology [place], Chair 1 Hem Onc Scenery [address] [place] [address] 12/24/2022 Telemedicine Palliative Medicine Nan Vargas MD [address] [place] [address] 01/01/2023 Imaging Radiology 01/05/2023 Laboratory Laboratory Alejandrina, Lab Scenery [address] [place] [address] 01/06/2023 Office Visit Hematology Oncology Jeff Robbins MD [address] [place] [address] 01/06/2023 Hem/Onc Treatment Hematology Oncology [place], Chair 7 Hem Onc Scenery [address] [place] [address] 01/08/2023 Office Visit Gastroenterology Andreea Goodman, DO [address] [place] [address] Pending Results Name Type Priority Associated Diagnoses Date /Time CBC WITH WBC DIFFERENTIAL Lab STAT 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) 12/22/2022 9:30 AM EDT COMPREHENSIVE METABOLIC PANEL Lab STAT 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) 12/22/2022 9:30 AM EDT HEPATITIS B SURFACE ANTIGEN Lab STAT 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) 12/22/2022 9:30 AM EDT CBC Lab STAT 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) 12/22/2022 9:30 AM EDT DIFFERENTIAL, AUTOMATED Lab STAT 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) 12/22/2022 9:30 AM EDT Health Maintenance Due Date [...] this encounter Medical Devices Implanted Type Area Program Dir Device Identifier Shelf Expiration Date Model / Serial / Lot Power Port 8fr Sngl Lumen Plas - [id number] Implanted:Qty : 1 on 10/22/2022 by James Baeza DO at OR [facility] Right: Chest CR BARD : PERIPHERAL VASCULAR [id number] 02/25/2024 [id number] / / [id number] documented as of this encounter Visit Diagnoses Diagnosis 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) 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 Question Answer Comments Discussion of Advance Directives occurred with: Patient Care Teams Comic Writer Relationship Specialty Start Date End Date Escobar Iglesias DO [address] [place] [address] PCP - General Family Medicine 10/07/22 documented as of this encounter
--- OUTSIDE RECORDS SUMMARY | 2023-05-29 14:22 | External Medical Summary ---
Author Name Unknown Address Unknown Organization K09:[facility] [address] [place] [address] Laboratory Report Ordering Provider Test Date Status RASHAAD BARAHONA 01/05/2023 09:30:39 Final Observation Date Value Abnormality Reference (Units ) Status Nucleated erythrocytes/100 leukocytes [Ratio] in Blood by Automated count 01/05/2023 09:30:39 Final Acanthocytes [Presence] in Blood by Light microscopy 01/05/2023 09:30:39 Moderate Abnormal None Seen Final Elliptocytes [Presence] in Blood by Light microscopy 01/05/2023 09:30:39 Moderate Abnormal None Seen Final Performing Location [facility] [address] [place] [address]
--- OUTSIDE RECORDS SUMMARY | 2023-05-29 14:22 | External Medical Summary ---
Author Name Unknown Address Unknown Organization K01[facility] [address] [place] [address] Laboratory Report Ordering Provider Test Date Status RASHAAD BARAHONA 12/22/2022 09:30:26 Final Observation Date Value Abnormality Reference (Units ) Status Hep B surface Ag 12/22/2022 09:30:26 Negative Neg ative Final Performing Location [facility] - [address] [place] [address]
--- OUTSIDE RECORDS SUMMARY | 2023-05-29 14:22 | External Medical Summary ---
Author Name Unknown Address Unknown Organization K09:[facility] [place] [address] Laboratory Report Ordering Provider Test Date Status RASHAAD BARAHONA 12/22/2022 09:30:26 Final Observation Date Value Abnormality Reference (Units ) Status SYNC LEUKOCYTES IN BLOOD BY AUTOMATED COUNT 12/22/2022 09:30:26 4.20 4.00-10.80 (K/uL) Final Segs 12/22/2022 09:30:26 39.5 Below low normal 40.0-75.0 (%) Final Lymphs % 12/22/2022 09:30:26 28.1 18.0-42.0 (%) Final Monos 12/22/2022 09:30:26 30.0 Above high normal 1.0-11.0 (%) Final Eosinophils 12/22/2022 09:30:26 1.4 0.0-6.0 (%) Final Basos 12/22/2022 09:30:26 1.0 0.0-2.0 (%) Final Absolute Segs 12/22/2022 09:30:26 1.66 Below low normal 1.80-7.70 (K/uL) Final Lymphs, absolute 12/22/2022 09:30:26 1.18 1.00-4.80 (K/ul) Final Monos, Abs 12/22/2022 09:30:26 1.26 Above high normal 0.00-1.10 (K/uL) Final Eos, Abs 12/22/2022 09:30:26 0.06 0.00-0.70 (K/uL) Final Basos, Abs 12/22/2022 09:30:26 0.04 0.00-0.20 (K/uL) Final Performing Location [facility] [place] [address]
--- OUTSIDE RECORDS SUMMARY | 2023-05-29 14:22 | External Medical Summary ---
Author Name Unknown Address Unknown Organization K09:[facility] [place] [address] Laboratory Report Ordering Provider Test Date Status RASHAAD BARAHONA 12/22/2022 09:30:26 Final Observation Date Value Abnormality Reference (Units ) Status WBC, Total 12/22/2022 09:30:26 4.20 4.00-10.8 0 (K/uL) Final RBC 12/22/2022 09:30:26 4.02 4.50-5.25 (M/uL) Final Hemoglobin 12/22/2022 09:30:26 13.4 Below low normal 14 .0-16.8 (g/dL) Final HCT 12/22/2022 09:30:26 40.5 40.0-48.4 (%) Final MCV 12/22/2022 09:30:26 100.7 82.0-99.5 (fL) Final MCH 12/22/2022 09:30:26 33.3 27.0-34.0 (pg) Final MCHC 12/22/2022 09:30:26 33.1 32.0-36.0 (g/dL) Final RDW 12/22/2022 09:30:26 21.6 11.5-15.5 (%) Final Platelets 12/22/2022 09:30:26 109 Below low normal 140 -400 (K/uL) Final MPV 12/22/2022 09:30:26 11.0 6.6-11.1 ( fL) Final Performing Location [facility] [place] [address]
--- OUTSIDE RECORDS SUMMARY | 2023-05-29 14:22 | External Medical Summary | Summary of Care ---
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) Procedures CT CHEST/ABDOMEN/PELVIS WITH IV CONTRAST WITH ORAL CONTRAST Eli Finch CRNP [address] [place] [address] Referral ID Status Reason Start Date Expiration Date V isits Requested Visits Authorized [id number] Pending Review 12/30/2022 999 999 Reason for Visit * Reason Comments Follow Up Encounter Details Date Type Department Care Team Description 12/09/2022 Office Visit [facility]ology[facility] [place] [facility] [address] [facility] [address] [facility] [place] [address] Malignant neoplasm of transverse colon (HCC)*; 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); Encounter for antineoplastic chemotherapy; Iron deficiency anemia due to chronic blood loss; Hepatitis B core antibody positive; Edema of left lower extremity Allergies Active Allergy Reactions Severity Noted Date [...] HCl 0.1 % Nasal Solution Administer 1 [place] into nostril in the morning and 1 [place] before bedtime. 0 Active Escitalopram Oxalate 10 MG Oral Tablet (Lexapro) Take 1 Tablet by mouth in the morning. 0 Active oxyCODONE HCl 5 MG Oral Tablet (Oxy IR)Indications:[place] stasis to liver (HCC),Malignant neoplasm of transverse [...] before bedtime. 90 Tablet 0 11/21/2022 Active Hospital, Clinic, or Other Facility Administered Medication Ordered Dose Route Frequency Start Date End Date Status Fluorouracil (5-Fu) 4,175 mg in NSS 230 mL infusion 4175 mg IV CONTINUOUS 12/08/2022 12/10/2022 Active documented as of this encounter (statuses [...] Sign Reading Time Taken Comments Blood Pressure 117/81 12/09/2022 10:59 AM EDT Pulse 107 12/09/2022 10:59 AM EDT Temperature 35.8 C (96.5 F) 12/09/2022 10:59 AM E DT Respiratory Rate 16 12/09/2022 10:59 AM EDT Oxygen Saturation 97% 12/09/2022 10:59 AM EDT Inhaled Oxygen Concentration - - Weight 71.4 kg (157 lb 6.4 oz) 12/09/2022 10:59 AM EDT Height - - Body Mass Index 25.42 10/22/2022 12:03 PM EDT documented in this [...] of this encounter Progress Notes * Eli SHELTON Alarcon - 12/09/2022 11:00 AM EDT Hematology/Oncology Outpatient Clinic note Wilfredo Jimenez [place] [address] [place] [address] Name: Escobar Reagan Date: 12/08/2022 CHIEF COMPLAINT: [...] mutation -KRAS, NRAS --> negative -BRAF negative [employer]ism. Iron deficiency. DATE OF DIAGNOSIS: 09/25/22 TREATMENT HISTORY: IV Venofer weekly x 2 completed 10/17/22 CURRENT TREATMENT: MODIFIED FOLFOX6 every 14 days (10/10/22 - ) DIAGNOSTIC WORKUP: Patient complained of fullness in [...] cell carcinoma removed. HISTORY OF PRESENT ILLNESS: Escobar Reagan is a 77 year old male with a history as outlined above. Currently here for f/u visit today and consideration for C5D1 of treatment. Has been trying to gain weight. Eating a lot of food. Continues to have left foot drop. Noticing swelling in his left ankle. Better in the morning andworsens throughout the day. Denies pain in the left leg or numbness. Tolerating treatment well. No noticeable side effects so far. Denies oral ulceration, nausea/vomiting. Denies skin changes. Takingsenokot and moving bowels daily. Drinking two protein supplements a day. Is not drinking enough water. Stopped his BP medication and has had no further hypotensive episodes. No past medical history on file. Past Surgical History: Procedure Laterality Date INSER TUNN ACC DEV;5 YRS/OLDER Right 10/22/2022 INSERT TUNNELED CENTRAL VENOUS ACCESS WITH SUBQ PORT performed by James Baeza DO at OR [facility] IR BIOPSY 09/25/2022 Social History Socioeconomic [...] HCl 0.1 % Nasal Solution Administer 1 [place] into nostril in the morning and 1 [place] before bedtime. Escitalopram Oxalate 10 MG Oral [...] 1 Tablet before bedtime. 90 Tablet 0 Current Facility-Administered Medications Medication Dose Route Frequency Provider Last Rate Last Admin Fluorouracil (5-Fu) 4,175 mg in NSS 230 mL infusion 4,175 mg Intravenous Continuous Jeff Robbins MD Facility-Administered Medications Ordered in Other Visits Medication Dose Route Frequency Provider Last Rate Last Admin [START ON 12/09/2022] Fluorouracil (5-Fu) 4,175 mg for Home Infusion 2,400 mg/m2 (Order-Specific) Intravenous Once Jeff Robbins MD REVIEW OF SYSTEMS: See HPI - otherwise negative OBJECTIVE: Filed Vitals: 12/09/22 1059 BP: 117/81 Pulse: 107 Resp: 16 Temp: 35.8 C (96.5 F) TempSrc: Tympanic SpO2: 97% Weight: 71.4 kg (157 lb 6.4 oz) Wt Readings from Last 5 Encounters: 12/09/22 71.4 kg (157 lb 6.4 oz) 11/25/22 66.2 kg (146 lb) 11/11/22 65.1 kg (143 lb 9.6 oz) 10/29/22 67.1 kg (148 lb) 10/22/22 66.4 kg (146 lb 6.2 oz) PHYSICAL EXAM: ECOG: Performance Status 1 [...] oriented x 4, +left foot drop LABS: Results for orders placed or performed in visit on 12/08/22 COMPREHENSIVE METABOLIC PANEL Result Value Ref Range BUN 18 6 - 20 mg/dL Creatinine 0.9 0.6 - 1.2 mg/dL Estimated Glomerular Filtration Rate 85 >=60 mL/min Sodium 138 135 - 146 mmol/L Potassium 3.8 3.5 - 5.1 mmol/L Chloride 105 98 - 107 mmol/L CO2 24 22 - 32 mmol/L Anion Gap 9 7 - 15 mmol/L Glucose 104 70 - 120 mg/dL Albumin 2.8 (L) 3.8 - 5.0 g/dL AST 47 10 - 50 U/L Alkaline Phosphatase 296 (H) 35 - 130 U/L Bilirubin, Total 0.5 <=1.2 mg/dL Calcium 8.9 8.4 - 10.2 mg/dL Protein 6.0 6.0 - 8.3 g/dL ALT 22 10 - 50 U/L CBC Result Value Ref Range WBC 6.46 4.00 - 10.80 K/uL RBC 3.68 4.50 - 5.25 M/uL HGB 11.9 (L) 14.0 - 16.8 g/dL HCT 36.4 (L) 40.0 - 48.4 % MCV 98.9 82.0 - 99.5 fL MCH 32.3 27.0 - 34.0 pg MCHC 32.7 32.0 - 36.0 g/dL RDW 21.3 11.5 - 15.5 % PLT 113 (L) 140 - 400 K/uL MPV 9.5 6.6 - 11.1 fL DIFFERENTIAL, AUTOMATED Result Value Ref Range WBC 6.46 4.00 - 10.80 K/uL Neutrophils % 50.1 40.0 - 75.0 % Lymphocytes % 20.6 18.0 - 42.0 % Monocytes % 26.0 (H) 1.0 - 11.0 % Eosinophils % 2.5 0.0 - 6.0 % Basophils % 0.8 0.0 - 2.0 % Absolute Neutrophils 3.24 1.80 - 7.70 K/uL Absolute Lymphocytes 1.33 1.00 - 4.80 K/ul Absolute Monocytes 1.68 (H) 0.00 - 1.10 K/uL Absolute Eosinophils 0.16 0.00 - 0.70 K/uL Absolute Basophils 0.05 0.00 - 0.20 K/uL IMPRESSION/PLAN: 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 Avoid alcohol, and minimize hepatotoxins as much as possible. Will continue to follow CEA monthly Plan for restaging CT scans s/P C6 - order placed to be completed in three weeks Continue to follow with palliative care Will consider addition of Xgeva/Zometa for prevention of skeletal related complications in setting of sclerotic bone lesions LLE Edema Order placed for STAT LLE Venous Duplex RTC as scheduled with physician for chemo return/scan review SHELTON Powers * Dina Hernández LPN - 12/09/2022 10:58 AM EDT Patient identifed by name and birthdate Do you have any concerns about pain management for today's visit? No Living Will or Advance Directive for Health Care as noted on the problem list. [facility] is a way you can talk to your provider on line through e-mail. Would you like to sign up? I can activate it for you? ALREADY ACTIVE Filed Vitals: 12/09/22 1059 BP: 117/81 Pulse: 107 Resp: 16 Temp: 35.8 C (96.5 F) TempSrc: Tympanic SpO2: 97% Weight: 71.4 kg (157 lb 6.4 oz) documented in this encounter Plan of Treatment Upcoming Encounters Date Type Specialty Care Team Description 12/11/2022 Immunization/Injection Hematology Oncolog y Nurse, Med [address] [place] [address] 12/22/2022 Laboratory Laboratory [place], Lab [address]en[address] [place] [address] 12/23/2022 Hem/Onc Treatment Hematology Oncology [place], Chair 1 Hem Onc Scenery [address] [facility] [place] [address] 12/24/2022 Office Visit Palliative Medicine Nan Vargas MD [address] [place] [address] [place] [id number] 01/01/2023 Imaging Radiology 01/05/2023 Laboratory Laboratory [place], Lab Scenery [address] [facility] [place] [address] [address] 01/06/2023 Office Visit Hematology Oncology Jeff Robbins MD [address] [place] [address] 01/06/2023 Hem/Onc Treatment Hematology Oncology [place], Chair 7 Hem Onc Scenery [address] [place] [address] 01/08/2023 Office Visit Gastroenterology Andreea Goodman, [address] [place] [address] Pending Results Name Type Priority Associated Diagnoses Date /Time CEA Lab Routine 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) 12/08/2022 10:02 AM EDT VASC DUPLEX VENOUS LE UNILAT Medical Imaging STAT Edema of left lower extremity 12/09/2022 3:28 PM EDT Scheduled Orders Name Type Priority Associated Diagnoses Orde r Schedule CT CHEST/ABDOMEN/PELVIS WITH IV CONTRAST WITH ORAL CONTRAST Medical Imaging STAT 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 (HCC) Expected: 12/30/2022 (Approximate), Expires: 03/11/2023 Health Maintenance Due Date Last Done Comments [...] this encounter Medical Devices Implanted Type Area Tenant Selector Device Identifier Shelf Expiration Date Model / Serial / Lot Power Port 8fr Sngl Lumen Plas - [id number] Implanted:Qty : 1 on 10/22/2022 by James Baeza DO at OR [facility] Right: Chest CR BARD : PERIPHERAL VASCULAR [id number] 02/25/2024 [id number] / / [id number] documented as of this encounter Visit Diagnoses Diagnosis Malignant neoplasm of transverse colon (HCC)- Primary Malignant 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) Secondary malignant neoplasm of liver Encounter for antineoplastic chemotherapy Iron deficiency anemia due to chronic blood loss Iron deficiency anemia secondary to blood loss (chronic) Hepatitis B core antibody positive Other and unspecified nonspecific immunological findings Edema of left lower extremity Edema documented in this encounter Advance Directives Documents on File Type Date Recorded Patient Belt Tender Expl 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 Question Answer Comments Discussion of Advance Directives occurred with: Patient Care Teams Burning Supervisor Relationship Specialty Start Date End Date Escobar Iglesias DO [address] [place] [address] PCP - General Family Medicine 10/07/22 documented as of this encounter
--- OUTSIDE RECORDS SUMMARY | 2023-05-29 14:22 | External Medical Summary | Summary of Care ---
Author Name Unknown Organization [facility] Address [address] [place] [address] Phone [phone] Care Team Providers Care Customer Acquisition Specialist Name Role Phone Escobar Iglesias DO Primary Care Provider Reason for Visit * Reason Onset Date Comments Med Request 01/02/2023 Encounter Details Date Type Department Care Team Description 01/02/2023 Telephone Palliative Medicine, [facility] [address] [facility] 5th Floor [place], [place] [phone] Nan Vargas MD [address] [place] [address] Med Request Allergies Active Allergy [...] HCl 0.1 % Nasal Solution Administer 1 [place] into nostril in the morning and 1 [place] before bedtime. 0 Active Escitalopram Oxalate 10 MG Oral Tablet (Lexapro) Take 1 Tablet by mouth in the morning. 0 Active oxyCODONE HCl 5 MG Oral Tablet (Oxy IR)Indications:[place] stasis to liver (HCC),Malignant neoplasm of transverse [...] encounter Miscellaneous Notes * Telephone Encounter - Julia Matt CPhT - 01/02/2023 3:27 PM EDT Pt's calling stating the pt is having diarrhea. He has been having issues for about 3 days nowand is asking if there is a medication that can be called in to help him. Please send to [id number] [place] if appropriate. Thank you, Shayy Matt Director [employer] [facility] ([facility]) (Formerly Telepharmacy) 01/02/2023,3:29 PM documented in this encounter Plan of Treatment Upcoming Encounters Date Type Specialty Care Team Description 01/05/2023 Laboratory Laboratory [facility] [address] [place] [address] 01/06/2023 Office Visit Hematology Oncology Jeff Robbins MD [address] [place] [address] 01/06/2023 Hem/Onc Treatment Hematology Oncology [place], Chair 7 Hem Onc Scenery [address] [place] [address] 01/08/2023 Office Visit Gastroenterology Andreea Goodman DO [address] [place] [address] 03/18/2023 Telemedicine Palliative Medicine Eli Mckeon, [place] [address] [place] [address] Health Maintenance Due Date [...] this encounter Medical Devices Implanted Type Area Contact Center Specialist Device Identifier Shelf Expiration Date Model / Serial / Lot Power Port 8fr Sngl Lumen Plas - [id number] Implanted:Qty : 1 on 10/22/2022 by James Baeza DO at OR [facility] Right: Chest CR BARD : PERIPHERAL VASCULAR [id number] 02/25/2024 [id number] / / [id number] documented as of this encounter Advance Directives Documents on File Type Date Recorded Patient Metal Pickling Equipment Operator Expl 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 Question Answer Comments Discussion of Advance Directives occurred with: Patient Care Teams Customer Acquisition Specialist Relationship Specialty Start Date End Date Escobar Iglesias, [address] [facility] [place] [address] PCP - General Family Medicine 10/07/22 documented as of this encounter
--- OUTSIDE RECORDS SUMMARY | 2023-05-29 14:23 | External Medical Summary ---
Author Name Unknown Address Unknown Organization [facility] [place] [address] Laboratory Report Ordering Provider Test Date Status RASHAAD BARAHONA 12/08/2022 10:02:33 Final Observation Date Value Abnormality Reference (Units ) Status SYNC LEUKOCYTES IN BLOOD BY AUTOMATED COUNT 12/08/2022 10:02:33 6.46 4.00-10.80 (K/uL) Final Segs 12/08/2022 10:02:33 50.1 40.0-75.0 (%) Final Lymphs % 12/08/2022 10:02:33 20.6 18.0-42.0 (%) Final Monos 12/08/2022 10:02:33 26.0 Above high normal 1.0-11.0 (%) Final Eosinophils 12/08/2022 10:02:33 2.5 0.0-6.0 (%) Final Basos 12/08/2022 10:02:33 0.8 0.0-2.0 (%) Final Absolute Segs 12/08/2022 10:02:33 3.24 1.80-7.70 (K/uL) Final Lymphs, absolute 12/08/2022 10:02:33 1.33 1.00-4.80 (K/ul) Final Monos, Abs 12/08/2022 10:02:33 1.68 Above high normal 0.00-1.10 (K/uL) Final Eos, Abs 12/08/2022 10:02:33 0.16 0.00-0.70 (K/uL) Final Basos, Abs 12/08/2022 10:02:33 0.05 0.00-0.20 (K/uL) Final Performing Location [facility] [place] [address]
--- OUTSIDE RECORDS SUMMARY | 2023-05-29 14:23 | External Medical Summary ---
Author Name Unknown Address Unknown Organization [facility] [address] [place] [address] Laboratory Report Ordering Provider Test Date Status RASHAAD BARAHONA 12/08/2022 10:02:33 Final Observation Date Value Abnormality Reference (Units ) Status WBC, Total 12/08/2022 10:02:33 6.46 4.00-10.8 0 (K/uL) Final RBC 12/08/2022 10:02:33 3.68 4.50-5.25 (M/uL) Final Hemoglobin 12/08/2022 10:02:33 11.9 Below low normal 14 .0-16.8 (g/dL) Final HCT 12/08/2022 10:02:33 36.4 Below low normal 40. 0-48.4 (%) Final MCV 12/08/2022 10:02:33 98.9 82.0-99.5 (fL) Final MCH 12/08/2022 10:02:33 32.3 27.0-34.0 (pg) Final MCHC 12/08/2022 10:02:33 32.7 32.0-36.0 (g/dL) Final RDW 12/08/2022 10:02:33 21.3 11.5-15.5 (%) Final Platelets 12/08/2022 10:02:33 113 Below low normal 140 -400 (K/uL) Final MPV 12/08/2022 10:02:33 9.5 6.6-11.1 ( fL) Final Performing Location [facility] [place] [address]
--- OUTSIDE RECORDS SUMMARY | 2023-05-29 14:23 | External Medical Summary ---
Author Name Unknown Address Unknown Organization [facility] [address] [place] [address] Laboratory Report Ordering Provider Test Date Status RASHAAD BARAHONA 12/08/2022 10:02:33 Final Observation Date Value Abnormality Reference (Units ) Status BUN 12/08/2022 10:02:33 18 6-20 (mg/dL) Final Creatinine 12/08/2022 10:02:33 0.9 0.6-1.2 (mg/dL) Final Glomerular filtration rate/1.73 sq M.predicted [Volume Rate/Area] in Serum, Plasma or Blood by Creatinine-based formula (CKD-EPI) 12/08/2022 10:02:33 85 >=60 (mL/min) Final eGFR is calculated based on the CKD-EPI 2020 equation SODIUM 12/08/2022 10:02:33 138 135-146 (m mol/L) Final Potassium 12/08/2022 10:02:33 3.8 3.5-5.1 (m mol/L) Final Cl 12/08/2022 10:02:33 105 98-107 (mm ol/L) Final CO2 12/08/2022 10:02:33 24 22-32 (mmo l/L) Final Anion gap 12/08/2022 10:02:33 9 7-15 (mmol /L) Final Glucose 12/08/2022 10:02:33 104 70-120 (mg /dL) Final Albumin 12/08/2022 10:02:33 2.8 Below low normal 3.8 -5.0 (g/dL) Final AST (Aspartate aminotransferase) 12/08/2022 10:02:33 47 10-50 (U/L) Fin al Alk Phos 12/08/2022 10:02:33 296 Above high normal 35 -130 (U/L) Final Bilirubin, Total 12/08/2022 10:02:33 0.5 <=1 .2 (mg/dL) Final Calcium 12/08/2022 10:02:33 8.9 8.4-10.2 ( mg/dL) Final Protein 12/08/2022 10:02:33 6.0 6.0-8.3 (g /dL) Final ALT (Alanine aminotransferase) 12/08/2022 10:02:33 22 10-50 (U/L) Tres ordonez Performing Location [facility] [address] [place] [address]
--- OUTSIDE RECORDS SUMMARY | 2023-05-29 14:23 | External Medical Summary | Summary of Care ---
Author Name Unknown Organization [facility] Address [address] [place] [address] Phone [phone] Care Team Providers Care Discovery Manager Name Role Phone Escobar Iglesias DO Primary Care Provider Reason for Visit * Reason Comments Outpatient Testing Encounter Details Date Type Department Care Team Description 12/08/2022 Laboratory Laboratory [facility] [address] [place] [address] [facility] [address] [place] [address] Metastasis to liver (HCC); Malignant neoplasm of transverse colon (HCC) Allergies Active Allergy Reactions Severity Noted Date Comments Prochlorperazine Edema face/lips/tongue High 023 documented as of this encounter (statuses as of 12/08/2022) Medications Medication Sig Dispensed Refills Start Date [...] HCl 0.1 % Nasal Solution Administer 1 [place] into nostril in the morning and 1 [place] before bedtime. 0 Active Escitalopram Oxalate 10 MG Oral Tablet (Lexapro) Take 1 Tablet by mouth in the morning. 0 Active oxyCODONE HCl 5 MG Oral Tablet (Oxy IR)Indications:[place] stasis to liver (HCC),Malignant neoplasm of transverse [...] as of this encounter (statuses as of 12/08/2022) Active Problems Problem Noted Date Metastasis to liver 10/07/2022 Malignant neoplasm of transverse colon 0 10/07/2022 Encounter for antineoplastic chemotherap y 10/07/2022 JOY (generalized anxiety disorder) 09/26 Severe protein-energy malnutrition 09/25 Abdominal mass, right upper quadrant Colonic mass 09/24/2022 Elevated LFTs 09/24/2022 Iron deficiency anemia 09/24/2022 ANTHONY (acute kidney injury) 09/24/2022 documented as of this encounter (statuses as of 12/08/2022) Social History Tobacco Use Types Packs/Day Years [...] Date Type Specialty Care Team Description 12/09/2022 Office Visit Hematology Oncology [facility]ch [place] [address] [place] [address] 12/09/2022 Hem/Onc Treatment Hematology Oncology [place], Chair 2 Hem Onc [facility] [address] [place] [address] 12/24/2022 Office Visit Palliative Medicine Nan Vargas MD [address] [place] [address] 01/06/2023 Office Visit Hematology Oncology Jeff Robbins MD 200 [place] [address] 01/08/2023 Office Visit Gastroenterology Andreea Goodman DO [address] [place] [address] Pending Results Name Type Priority Associated Diagnoses Date /Time COMPREHENSIVE METABOLIC PANEL Lab STAT Metastasis to liver (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) 12/08/2022 10:02 AM EDT Health Maintenance Due Date Last [...] this encounter Medical Devices Implanted Type Area Rails Developer Device Identifier Shelf Expiration Date Model / Serial / Lot Power Port 8fr Sngl Lumen Plas - [id number] Implanted:Qty : 1 on 10/22/2022 by James Baeza DO at OR [facility] Right: Chest CR BARD : PERIPHERAL VASCULAR [id number] 02/25/2024 [id number] / / [id number] documented as of this encounter Procedures Procedure Name Priority Date/Time Associated Diagnosis Comments DIFFERENTIAL, AUTOMATED STAT 12/08/2022 10:02 AM EDT Metastasis to liver (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) CBC WITH WBC DIFFERENTIAL STAT 12/08/2022 10:02 AM EDT Metastasis to liver (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) CBC STAT 12/08/2022 10:02 AM EDT Metastasis to liver (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) documented in this encounter Results * (ABNORMAL) DIFFERENTIAL, AUTOMATED (12/08/2022 10:02 AM EDT) WBC 6.46 4.00 - 10.80 K/uL 12/08/2022 10:06 AM EDT [facility] 56-02 Neutrophils % 50.1 40.0 - 75.0 % 12/08/2022 10:06 AM EDT [facility] 56-02 Lymphocytes % 20.6 18.0 - 42.0 % 12/08/2022 10:06 AM EDT [facility] 56-02 Monocytes % 26.0(H) 1.0 - 11.0 % 12/08/2022 10:06 AM EDT [facility] 56-02 Eosinophils % 2.5 0.0 - 6.0 % 12/08/2022 10:06 AM EDT [facility] 56-02 Basophils % 0.8 0.0 - 2.0 % 12/08/2022 10:06 AM EDT [facility] 56-02 Absolute Neutrophils 3.24 1.80 - 7.70 K/uL 12/08/2022 10:06 AM EDT [facility] 56-02 Absolute Lymphocytes 1.33 1.00 - 4.80 K/ul 12/08/2022 10:06 AM EDT [facility] 56-02 Absolute Monocytes 1.68(H) 0.00 - 1.10 K/uL 12/08/2022 10:06 AM EDT [facility] 56-02 Absolute Eosinophils 0.16 0.00 - 0.70 K/uL 12/08/2022 10:06 AM EDT [facility] 56-02 Absolute Basophils 0.05 0.00 - 0.20 K/uL 12/08/2022 10:06 AM EDT [facility] 56-02 Blood Venous blood specimen / Unknown Venipuncture / Unknown 12/08/2022 10:02 AM EDT 12/08/2022 10:02 AM EDT Jeff Robbins MD LAB BLOOD ORDERABLES [facility] [address] [place] [address] * (ABNORMAL) CBC (12/08/2022 10:02 AM EDT) WBC 6.46 4.00 - 10.80 K/uL 12/08/2022 10:06 AM EDT [facility] 56 RBC 3.68 4.50 - 5.25 M/uL 12/08/2022 10:06 AM EDT [address] HGB 11.9(L) 14.0 - 16.8 g/dL 12/08/2022 10:06 AM EDT [facility] 56 HCT 36.4(L) 40.0 - 48.4 % 12/08/2022 10:06 AM EDT [address] MCV 98.9 82.0 - 99.5 fL 12/08/2022 10:06 AM EDT [address] MCH 32.3 27.0 - 34.0 pg 12/08/2022 10:06 AM EDT [address] MCHC 32.7 32.0 - 36.0 g/dL 12/08/2022 10:06 AM EDT [address] RDW 21.3 11.5 - 15.5 % 12/08/2022 10:06 AM EDT [address] PLT 113(L) 140 - 400 K/uL 12/08/2022 10:06 AM EDT [address] MPV 9.5 6.6 - 11.1 fL 12/08/2022 10:[address] Blood Venous blood specimen / Unknown Venipuncture / Unknown 12/08/2022 10:02 AM EDT 12/08/2022 10:02 AM EDT Jeff Robbins MD LAB BLOOD ORDERABLES Performing Organization Address City/State/[facility] Co de Phone Number [facility] [address] [place], [place] [phone] documented in this encounter Visit Diagnoses Diagnosis Metastasis to liver (HCC) 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) Malignant neoplasm of transverse colon documented in this encounter Advance Directives Documents on File Type Date Recorded Patient Data Entry Operator Expl 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 Question Answer Comments Discussion of Advance Directives occurred with: Patient Care Teams Discovery Manager Relationship Specialty Start Date End Date Escobar Iglesias, [address] [facility] [place] [address] PCP - General Family Medicine 10/07/22 documented as of this encounter
--- OUTSIDE RECORDS SUMMARY | 2023-05-29 14:23 | External Medical Summary | Summary of Care ---
Author Name Unknown Organization [facility] Address [address] [place] [address] Phone [phone] Care Team Providers Care Cutting Machine Tender Decorative Name Role Phone Escobar Iglesias DO Primary Care Provider Encounter Details Date Type Department Care Team Description 12/08/2022 Orders Only [facility] [address] [place] [address] Jeff Robbins MD [address] [place] [address] Allergies Active Allergy Reactions Severity Noted Date [...] HCl 0.1 % Nasal Solution Administer 1 [place] into nostril in the morning and 1 [place] before bedtime. 0 Active Escitalopram Oxalate 10 MG Oral Tablet (Lexapro) Take 1 Tablet by mouth in the morning. 0 Active oxyCODONE HCl 5 MG Oral Tablet (Oxy IR)Indications:[place] stasis to liver (HCC),Malignant neoplasm of transverse [...] Visit Hematology Oncology [facility]NP [address] [facility] [place] [address] 12/09/2022 Hem/Onc Treatment Hematology Oncology [place], Chair 2 Hem Onc [address] [place] [address] Metastasis to liver (HCC)*; Malignant neoplasm of transverse colon (HCC); Encounter for antineoplastic chemotherapy 12/24/2022 Office Visit Palliative Medicine Nan Vargas MD [address] [place] [phone] 01/06/2023 Office Visit Hematology Oncology Jeff Robbins MD 200 [facility] [place] [address] 01/08/2023 Office Visit Gastroenterology Andreea Goodman, DO [address] [place] [address] Health Maintenance Due Date Last Done Comments [...] encounter Medical Devices Implanted Type Area Supervisor Audit Clerks Device Identifier Shelf Expiration Date Model / Serial / Lot Power Port 8fr Sngl Lumen Plas - [id number] Implanted:Qty : 1 on 10/22/2022 by James Baeza DO at OR [facility] Right: Chest CR BARD : PERIPHERAL VASCULAR [id number] 02/25/2024 [id number] / / [id number] documented as of this encounter Advance Directives Documents on File Type Date Recorded Patient Certified Wellness Program Coordinator Expl 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 Question Answer Comments Discussion of Advance Directives occurred with: Patient Care Teams Cutting Machine Tender Decorative Relationship Specialty Start Date End Date Escobar Iglesias DO [address] [place] [address] PCP - General Family Medicine 10/07/22 documented as of this encounter
--- OUTSIDE RECORDS SUMMARY | 2023-05-29 14:23 | External Medical Summary ---
Author Name Unknown Address Unknown Organization K01:[facility] - [address] [place] [address] Laboratory Report Ordering Provider Test Date Status KRISTAL ZEPEDA 12/08/2022 10:02:33 Final Observation Date Value Abnormality Reference (Units ) Status ALEXA 12/08/2022 10:02:33 43.0 Above high normal <= 5.2 (ng/mL) Final Performing Location [facility] - [address] [place] [address]
--- NOTE | 2023-05-29 15:57 | Hospitalist Progress Note ---
Date of Service May 29, 2023 Assessment & Plan (1) Acute hyponatremia: Plan: Mr. 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 Robles dumont admitted 05/28 for evaluation of such. Per admission HPO:" Because of his weakness his chemo is on hold for almost 4 weeks now. There is a plan to change his chemo. Lately patient having de creased p.o. intake. Feeling weak and fatigued. Last few days requiring significant help for transferring. Ambulates with a walker. Seems last night got stuck on the toilet for 1 hour until family was eventually able to help him. " Attempting to manage hyponatremia with Nephrology assistance utilizing albumin assisted diuresis. College Scouting Coordinator to help optimize nutritional status and PT/OT. Planning for paracentesis on Thursday. #Severe hypervolemic hyponatremia Sodium 123 on admission up to 124 this am Continue holding spironolactone and HCTZ Gentle fluids with D5 normal on admission, now discontinued BMP q6h Nephrology consulted for further recommendations -Transitioned to albumin assisted diuresis -Albumin 25% q 8h with furosemide 10mg IV -FR 1.5L -Daily standing weights -Strict I/Os, avoid nephrotoxic agents -Started K 20meq BID per nephrology given lasix -Goal sodium <129 on 4am labs tomorrow #Abnormal EKG with concern for A FIB #PACS Questionable new A-fib on admission EKG, however, poor quality , repeat with PACs ECHO poor quality 2/2 ascites/poor acoustic windows per report Cardiology on consult -Continue anticoagulation at this time Holding Apixaban 5mg BID given planned paracentesis for Thursday Heparin drip for AC, continue to monitor on tele #General weakness #Severe protein calorie malnutrition #Mechanical falls Follows [facility] care 05/13/2023 -Falls last Thursday per 05/28 palliative notes on [facility] Multiple missed appointments 2/2 weakness Weight down from 155 in 01/2023, cachetic College Scouting Coordinator consult Infectious work up negative #Stage IV colon cancer metastatic to liver and lungs #immunocompromised Transverse colon adenocarcinoma, dx 2022 Currently chemo on hold for weakness since last 4 weeks -Recent changes in regimen, last treatment 5FU and leucovorin; transitioning to irinotecan, vectibix 2/2 disease progression -last follow 05/07/[address] Jeff Robbins -Last treatment 05/05 #Transaminitis #Known metastatic liver disease Mostly from metastatic disease hepatitis B core antibody positive Trend CMP #Pseudocirrhosis c/b ascites Last admission January 2023 4 L were taken out Paracentesis planned for 06/01 05/29 eliquis -Hold eliquis -Heparin drip #Elevated CPK levels Getting fluids Downtrending, 820-->381 #Chronic RLE DVT #Hypercoagulable state 2/2 malignancy On Eliquis #General anxiety disorder Depression On buspirone, Lexapro and Remeron #Chronic pain iso malignancy Oxycodone as needed IV morphine as needed Follows with [facility] palliative care #iron deficiency anemia Patient is Pentecostalism Hemoglobin stable at 11.9, baseline 10-11 Trend CBC, no blood product, will obtain b12, folate, iron studies for anemia optimization DVT prophylaxis On Eliquis, transitioning to Heparin Disposition Telemetry floor Pt/OT Full code as per discussion with the family on admission Admission and Anticipated Discharge Date Admission Date: May 28, 2023 Subjective Admitted overnight Reports just progressive weakness as main concern, denies chest pain palpitations or other acute concerns Trying to eat breakfast, reports frustration opening butter Physical Exam Constitutional: weak, frail gentleman, fiddling with pad of butter, cachectic, quite tone Respiratory: normal respiratory effort, lungs clear to auscultation Cardiovascular: RRR, no murmur, no edema Gastrointestinal (Abdomen): distended, nontender Musculoskeletal: moving all extremities equally, slow, strength ~3/5 Results & Data Results & Data Vital Signs (Past 12 Hours) Vital Signs Temp Pulse Resp BP Pulse Ox O2 Del Method 05/29/23 11:41 36.8 C 96 H 16 105/71 93 Room Air 05/29/23 08:07 36.7 C 78 16 95/72 L 98 Room Air 05/29/23 04:49 109/61 94 Room Air 05/29/23 03:44 36.6 C 79 20 97/76 L 91 Room Air Laboratory Results Short CBC 05/28/23 05/29/23 Range/Units 18:15 05:24 WBC 8.92 9.27 (4.8-10.8) K/ul Hgb 11.9 L 10.9 L (14.0-18.0) g/dl Hct 34.1 L 30.0 L (42.0-52.0) % Plt Count 202 170 (130-400) K/uL BMP 05/28/23 05/29/23 05/29/23 18:15 05:24 10:49 Sodium 123 L 124 L 124 L Potassium 3.5 3.6 3.7 Chloride 92 L 95 L 94 L Carbon Dioxide 22 21 23 BUN 31 H 32 H 31 H Creatinine 1.02 0.99 1.06 Glucose 137 H 103 H 107 H Calcium 8.3 L 8.0 L 7.8 L Cardiac Enzymes 05/28/23 05/29/23 Range/Units 18:15 05:24 Total Creatine Kinase 820 H 381 H (30-223) U/L Liver Function 05/28/23 05/29/23 Range/Units 18:15 05:24 Total Bilirubin 2.3 H 2.1 H (0.2-1.0) mg/dl Direct Bilirubin 1.0 H (0-0.2) mg/dl AST 139 H 121 H (13-39) U/L ALT 78 H 66 H (7-52) U/L Alkaline Phosphatase 629 H 522 H (34-104) U/L Albumin 2.8 L 2.6 L (3.4-5.0) gm/dl Urine 05/29/23 Range/Units 01:18 Urine Color Dark Yellow Urine Appearance Cloudy A (Clear) Urine pH 6.0 (4.5-7.5) Ur Specific [place] 1.045 H (1.000-1.030) Urine Protein Trace H (Negative) Urine Glucose (UA) Negative (Negative) Medications Administered Home Medications Medication Instructions Recorded Confirmed Last Taken apixaban 5 mg tablet (Eliquis) 5 mg PO BID 02/07/23 05/28/23 05/28/23 10:30 escitalopram oxalate 10 mg tablet 10 mg PO DAILY 02/07/23 05/28/23 Unknown hydrochlorothiazide 25 mg tablet 25 mg PO DAILY 02/07/23 05/28/23 Unknown oxycodone 5 mg tablet 5 mg PO Q8 PRN Pain 02/07/23 05/28/23 05/28/23 17:00 spironolactone 50 mg tablet 50 mg PO DAILY 02/07/23 05/28/23 Unknown buspirone 10 mg tablet 10 mg PO TID 05/28/23 05/28/23 05/28/23 16:00 loratadine 10 mg tablet 10 mg PO QAM 05/28/23 05/28/23 Unknown mirtazapine 30 mg tablet 30 mg PO HS 05/28/23 05/28/23 Unknown multivitamin 1 tab PO DAILY 05/28/23 05/28/23 Unknown ondansetron HCl 8 mg tablet 8 mg PO Q8 PRN Nausea 05/28/23 05/28/23 Unknown sennosides 8.6 mg tablet (senna) 8.6 mg PO BID PRN Constipation 05/28/23 05/28/23 Unknown Active Medications Generic Name Dose Route Start Last Admin Trade Name Freq PRN Reason Stop Dose Admin Apixaban 5 mg 05/29/23 09:00 05/29/23 07:49 Apixaban 5 Mg Tablet PO 06/28/23 08:59 5 mg BID JORGE Administration Buspirone HCl 10 mg 05/29/23 09:00 05/29/23 13:04 Buspirone 5 Mg Tab PO 06/28/23 08:59 10 mg TID JORGE Administration Escitalopram Oxalate 10 mg 05/29/23 09:00 05/29/23 07:49 Escitalopram Oxalate 10 Mg Tab PO 06/28/23 08:59 10 mg DAILY JORGE Administration Furosemide 10 mg 05/29/23 12:15 05/29/23 13:04 Furosemide Inj 20 Mg/2 Ml Vial IV 06/28/23 12:14 10 mg Q4H JORGE Administration Albumin Human 25 gm in 100 mls @ 50 mls/hr 05/29/23 12:15 05/29/23 15:26 Albumin 25% IV 06/01/23 12:14 Infused Q8H JORGE Infusion Loratadine 10 mg 05/29/23 09:00 05/29/23 07:49 Loratadine 10 Mg Tab PO 06/28/23 08:59 10 mg QAM JORGE Administration Multivitamins 1 tab 05/29/23 09:00 05/29/23 07:49 Multivitamin Tab PO 06/28/23 08:59 1 tab DAILY JORGE Administration Oxycodone HCl 5 mg 05/29/23 00:21 05/29/23 01:22 Oxycodone Hcl Ir 5 Mg Tab (Immediate Release) PO 06/12/23 00:20 5 mg Q8 PRN Administration Pain Potassium Chloride 20 meq 05/29/23 12:15 05/29/23 13:04 Potassium Chloride Crtab 20 Meq Tabcr PO 06/28/23 12:14 20 meq BID JORGE Administration
[2023-05-29 17:24] LABS: BUN Creatinine Ratio 29.8 (10-20); Creatinine Clr Calc Pharmacy 52.6 ml/min; Est GFR (African American) 79.9 ml/min; Est GFR (Non-African American) 68.9 ml/min; Potassium 3.4 mmol/L (3.5-5.1)
[2023-05-29] MEDS: Heparin IV Adult Wt-Based Low-Dose *NO* INITIAL Bolus Protocol IV STA (18:12)
--- NOTE | 2023-05-29 19:02 | Communication Note ---
Date of Service: May 29, 2023 labs and VS reviewed; creat stable; Na stable/no worse; 900 mL negative; K dropping >continue albumin/frequent low dose lasix >continue strict I/O >increase K supplement to qid po; may change to IV if pt not tolerating po
[2023-05-29] MEDS: MoRPHine SULFATE 4 MG/ML 1 ML CARP\\VIAL IV PRN (20:01)
[2023-05-29] MEDS: MIRTAZAPINE TAB 15 MG TAB PO SCH (20:11)
[2023-05-29 20:55] LABS: Basophils # (auto) 0.01 K/uL (0.00-0.20); Basophils % (auto) 0.1 %; Eosinophils # (auto) 0.02 K/uL (0.00-0.50); Eosinophils % (auto) 0.2 %; Hematocrit (blood only) 28.9 % (42.0-52.0); Hemoglobin 10.3 g/dl (14.0-18.0); Immature Granulocytes # (auto) 0.17 K/uL (0.01-0.20); Immature Granulocytes % (auto) 1.8 %; Lymphocytes # (auto) 0.67 K/uL (1.20-3.40); Lymphocytes % (auto) 7.1 %; Mean Corpuscular Hemoglobin 36.9 pg (25.0-34.0); Mean Corpuscular Hgb Conc 35.6 g/dL (32.0-36.0); Mean Corpuscular Volume 103.6 fL (80.0-100.0); Mean Platelet Volume 9.3 fL (9.4-12.4); Monocytes # (auto) 1.64 K/uL (0.11-0.59); Monocytes % (auto) 17.4 %; Neutrophils # (auto) 6.89 K/uL (1.40-6.50); Neutrophils % (auto) 73.4 %; Platelet Count 159 K/uL (130-400); RDW Coefficient of Variation 17.6 % (11.5-14.5); RDW Standard Deviation 67.3 fL (36.4-46.3); Red Blood Count 2.79 M/uL (4.70-6.10)
[2023-05-29 21:26] LABS: INR 1.4 (0.9-1.1); Prothrombin Time 15.1 Seconds (9.0-12.0)
[2023-05-29] MEDS: HEPARIN SODIUM/DEXTROSE 25,000 UNITS/500 ML BAG IV SCH (21:30)
[2023-05-29 21:38] LABS: ANTI-Xa, UFH(UnfractionatedHep > 1.50 IU/ml (0.3-0.7)
[2023-05-29] MEDS: POTASSIUM CHLORIDE PWD 20 MEQ PACK PO SCH (22:17)
[2023-05-29 23:09] LABS: BUN Creatinine Ratio 27.7 (10-20); Calcium 8.2 mg/dl (8.6-10.3); Creatinine Clr Calc Pharmacy 48.8 ml/min; Potassium 3.4 mmol/L (3.5-5.1)
[2023-05-29 23:26] LABS: ANTI-Xa, UFH(UnfractionatedHep > 1.50 IU/ml (0.3-0.7)
[2023-05-29] MEDS: POTASSIUM CHLORIDE / WTR 10 MEQ/100 ML PLCT IV SCH (23:55)
[2023-05-30 02:03] LABS: Hematocrit (blood only) 28.6 % (42.0-52.0); Mean Corpuscular Hemoglobin 36.5 pg (25.0-34.0); Mean Corpuscular Volume 104.4 fL (80.0-100.0); Mean Platelet Volume 9.4 fL (9.4-12.4); Platelet Count 143 K/uL (130-400); RDW Coefficient of Variation 17.7 % (11.5-14.5); RDW Standard Deviation 68.6 fL (36.4-46.3); Red Blood Count 2.74 M/uL (4.70-6.10); White Blood Count 8.17 K/ul (4.8-10.8)
[2023-05-30 02:19] LABS: Albumin Level 3.4 gm/dl (3.4-5.0); BUN Creatinine Ratio 29.9 (10-20); Bilirubin Direct 1.3 mg/dl (0-0.2); Bilirubin,Total 2.3 mg/dl (0.2-1.0); Calcium 8.1 mg/dl (8.6-10.3); Creatinine Clr Calc Pharmacy 51.1 ml/min; Est GFR (African American) 77.2 ml/min; Est GFR (Non-African American) 66.6 ml/min; Phosphorus 3.3 mg/dl (2.5-4.9); Potassium 3.8 mmol/L (3.5-5.1); Total Protein 5.3 gm/dl (6.0-8.3)
[2023-05-30 02:29] LABS: Partial Thromboplastin Ratio 1.2; Partial Thromboplastin Time 35 Seconds (21-31)
[2023-05-30 02:38] LABS: Ferritin 469.3 ng/ml (8-388)
[2023-05-30 02:44] LABS: Folate (Folic Acid),Ser orPlas > 22.30 ng/ml (>5.38)
[2023-05-30 02:45] LABS: Vitamin B12 1010 pg/ml (180-914)
--- NOTE | 2023-05-30 06:35 | Electrocardiogram Report ---
Test Reason : Blood Pressure : / mmHG Vent. Rate : 092 BPM Atrial Rate : 000 BPM P-R Int : 000 ms QRS Dur : 062 ms QT Int : 360 ms P-R-T Axes : 000 -62 026 degrees QTc Int : 445 ms Poor data quality, interpretation may be adversely affected Indeterminate rhythm due to artifact Premature ventricular complexes Left axis deviation Low voltage QRS Possible Inferior infarct Possible Anterolateral infarct (cited on or before 06-FEB-2023) Abnormal ECG When compared with ECG of 06-FEB-2023 16:41, Rhythm difficult to analyze due to artifact on current ECG Confirmed by King Bautista ([id number]) on 05/30/2023 6:34:59 AM Referred By: REFERRED SELF Confirmed By:King Bautista
[2023-05-30 07:19] LABS: Basophils # (auto) 0.01 K/uL (0.00-0.20); Basophils % (auto) 0.1 %; Eosinophils # (auto) 0.02 K/uL (0.00-0.50); Eosinophils % (auto) 0.2 %; Hematocrit (blood only) 27.7 % (42.0-52.0); Immature Granulocytes # (auto) 0.14 K/uL (0.01-0.20); Immature Granulocytes % (auto) 1.5 %; Lymphocytes # (auto) 0.65 K/uL (1.20-3.40); Lymphocytes % (auto) 6.8 %; Mean Corpuscular Hemoglobin 37.9 pg (25.0-34.0); Mean Corpuscular Hgb Conc 36.1 g/dL (32.0-36.0); Mean Corpuscular Volume 104.9 fL (80.0-100.0); Monocytes # (auto) 1.33 K/uL (0.11-0.59); Monocytes % (auto) 13.9 %; Neutrophils % (auto) 77.5 %; Platelet Count 121 K/uL (130-400); RDW Coefficient of Variation 17.5 % (11.5-14.5); RDW Standard Deviation 67.7 fL (36.4-46.3); Red Blood Count 2.64 M/uL (4.70-6.10); White Blood Count 9.55 K/ul (4.8-10.8)
[2023-05-30 07:45] LABS: INR 1.5 (0.9-1.1); Prothrombin Time 15.6 Seconds (9.0-12.0)
[2023-05-30 09:28] LABS: BUN Creatinine Ratio 28.6 (10-20); Calcium 8.3 mg/dl (8.6-10.3); Creatinine Clr Calc Pharmacy 52.5 ml/min; Est GFR (Non-African American) 68.1 ml/min; Potassium 3.1 mmol/L (3.5-5.1)
[2023-05-30 10:22] LABS: ANTI-Xa, UFH(UnfractionatedHep > 1.50 IU/ml (0.3-0.7)
[2023-05-30 11:12] LABS: Partial Thromboplastin Time 86 Seconds (21-31)
--- NOTE | 2023-05-30 12:05 | Hospitalist Progress Note ---
Date of Service May 30, 2023 Assessment & Plan (1) Acute hyponatremia: Plan: Mr. 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 Robles dumont admitted 05/28 for evaluation of such. Per admission HPO:" Because of his weakness his chemo is on hold for almost 4 weeks now. There is a plan to change his chemo. Lately patient having de creased p.o. intake. Feeling weak and fatigued. Last few days requiring significant help for transferring. Ambulates with a walker. Seems last night got stuck on the toilet for 1 hour until family was eventually able to help him. 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 Planning for paracentesis on Thursday. Attempting to manage hyponatremia with Nephrology assistance utilizing albumin assisted diuresis. Given patient's pseudocirrhosis and large volume ascites, will start prophylaxis for SBP given lab values/risk factors discussed below. #Pseudocirrhosis c/b ascites Last admission January 2023 4 L were taken out Paracentesis planned for 06/01 05/29 eliquis -Hold eliquis -Heparin drip Will start SBP prophylaxis as last total protein from para <3.0 (guidelines [place] ggest <1.5, but lab unable to quantify <3), Serum sodium <130, and BUN >25 -Ceftriaxone 2g q 24 hours #Severe hypervolemic hyponatremia *slow improvement #hypokalemia Sodium 123 on admission up to 124 this am Continue holding spironolactone and HCTZ Gentle fluids with D5 normal on admission, now discontinued BMP q12h Nephrology consulted for further recommendations -Transitioned to albumin assisted diuresis -Albumin 25% q 8h with furosemide 10mg IV -FR 1.5L -Daily standing weights -Strict I/Os, avoid nephrotoxic agents -Continue 20meq K QID per nephrology given lasix -Additional IV supplementation prn -Sodium increased approximately 4-5 meq in 24hours, continue current efforts per nephrology #Abnormal EKG with concern for A FIB #PACS Questionable new A-fib on admission EKG, however, poor quality , repeat with PACs ECHO poor quality 2/2 ascites/poor acoustic windows per report Cardiology on consult -Continue anticoagulation at this time Holding Apixaban 5mg BID given planned paracentesis for Thursday Heparin drip for AC, continue to monitor on tele, aptt goal 55-90 #General weakness #Severe protein calorie malnutrition #Mechanical falls Follows [facility] palliative care 05/13/2023 -Falls last Thursday per 05/28 palliative notes on EP[facility] Multiple missed appointments 2/2 weakness Weight down from 155 in 01/2023, cachetic Metal Casting Trades Worker consult Infectious work up negative to date, SBP ppx as above #Stage IV colon cancer metastatic to liver and lungs #immunocompromised Transverse colon adenocarcinoma, dx 2022 Currently chemo on hold for weakness since last 4 weeks -Recent changes in regimen, last treatment 5FU and leucovorin; transitioning to irinotecan, vectibix 2/2 disease progression -last follow 05/07/[address] Jeff Robbins -Last treatment 05/05 #Transaminitis *downtrending #Known metastatic liver disease Mostly from metastatic disease hepatitis B core antibody positive Trend CMP #Elevated CPK levels Getting fluids Downtrending, 820-->381, repeat in am #Chronic RLE DVT #Hypercoagulable state 2/2 malignancy On Eliquis; transitioned to heparin #General anxiety disorder Depression On buspirone, Lexapro and Remeron #Chronic pain iso malignancy Oxycodone as needed IV morphine as needed Follows with [facility] palliative care #iron deficiency anemia Patient is [employer] Hemoglobin stable at 11.9, baseline - Trend CBC, no blood product, -B12 1010, folate >22.30, iron51, TIBC 182/ferritin 469 DVT prophylaxis Hold apixaban , transitioned to Heparin Disposition Telemetry floor Pt/OT Full code as per discussion with the family on admission Admission and Anticipated Discharge Date Admission Date: May 28, 2023 Subjective NAEO Denies any symptoms outside of ongoing weakness, requested to be moved to bedside chair--able to stand up but required assistance moving to side of bed. Denies headaches, fevers/chills, denies any chest pain, palpitations, nausea or vomiting Physical Exam Constitutional: frail, cachetic, requires assistance shifting in bed but able to stand on own with minimal help; however, weak/unsteady moving to chair and minimal strength for slow transition to seated position Respiratory: diminished, scattered crackles Cardiovascular: RRR, no murmur, no edema Gastrointestinal (Abdomen): protuberant, distended, nontender Results & Data Results & Data Vital Signs (Past 12 Hours) Vital Signs Temp Pulse Pulse Resp BP Pulse Ox O2 Del Method 05/30/23 08:10 37.0 C 63 18 111/79 96 Room Air 05/30/23 02:32 36.7 C 79 16 117/86 96 Room Air 05/30/23 01:25 82 05/30/23 00:07 Room Air Laboratory Results Short CBC 05/29/23 05/30/23 05/30/23 Range/Units 20:37 01:49 07:00 WBC 9.40 8.17 9.55 (4.8-10.8) K/ul Hgb 10.3 L 10.0 L 10.0 L (14.0-18.0) g/dl Hct 28.9 L 28.6 L 27.7 L (42.0-52.0) % Plt Count 159 143 121 L (130-400) K/uL BMP 05/29/23 05/29/23 05/30/23 16:50 22:42 01:50 Sodium 124 L 126 L 126 L Potassium 3.4 L 3.4 L 3.8 Chloride 93 L 94 L 95 L Carbon Dioxide 24 24 23 BUN 31 H 31 H 32 H Creatinine 1.04 1.12 1.07 Glucose 110 H 108 H 105 H Calcium 8.0 L 8.2 L 8.1 L 05/30/23 08:49 Sodium 128 L Potassium 3.1 L Chloride 93 L Carbon Dioxide 26 BUN 30 H Creatinine 1.05 Glucose 102 H Calcium 8.3 L Liver Function 05/30/23 Range/Units 01:50 Total Bilirubin 2.3 H (0.2-1.0) mg/dl Direct Bilirubin 1.3 H (0-0.2) mg/dl AST 112 H (13-39) U/L ALT 59 H (7-52) U/L Alkaline Phosphatase 492 H (34-104) U/L Albumin 3.4 (3.4-5.0) gm/dl Medications Administered Home Medications Medication Instructions Recorded Confirmed Last Taken apixaban 5 mg tablet (Eliquis) 5 mg PO BID 10/14/23 02/01/24 02/01/24 10:30 escitalopram oxalate 10 mg tablet 10 mg PO DAILY 02/07/23 05/28/23 Unknown hydrochlorothiazide 25 mg tablet 25 mg PO DAILY 02/07/23 05/28/23 Unknown oxycodone 5 mg tablet 5 mg PO Q8 PRN Pain 02/07/23 05/28/23 05/28/23 17:00 spironolactone 50 mg tablet 50 mg PO DAILY 02/07/23 05/28/23 Unknown buspirone 10 mg tablet 10 mg PO TID 05/28/23 05/28/23 05/28/23 16:00 loratadine 10 mg tablet 10 mg PO QAM 05/28/23 05/28/23 Unknown mirtazapine 30 mg tablet 30 mg PO HS 05/28/23 05/28/23 Unknown multivitamin 1 tab PO DAILY 05/28/23 05/28/23 Unknown ondansetron HCl 8 mg tablet 8 mg PO Q8 PRN Nausea 05/28/23 05/28/23 Unknown sennosides 8.6 mg tablet (senna) 8.6 mg PO BID PRN Constipation 05/28/23 05/28/23 Unknown Active Medications Generic Name Dose Route Start Last Admin Trade Name Antoinette PRN Reason Stop Dose Admin Apixaban 5 mg 05/29/23 09:00 05/29/23 07:49 Apixaban 5 Mg Tablet PO 06/28/23 08:59 5 mg BID JORGE Administration Buspirone HCl 10 mg 05/29/23 09:00 05/30/23 09:01 Buspirone 5 Mg Tab PO 06/28/23 08:59 10 mg TID JORGE Administration Escitalopram Oxalate 10 mg 05/29/23 09:00 05/30/23 09:00 Escitalopram Oxalate 10 Mg Tab PO 06/28/23 08:59 10 mg DAILY JORGE Administration Furosemide 10 mg 05/29/23 12:15 05/30/23 09:00 Furosemide Inj 20 Mg/2 Ml Vial IV 06/28/23 12:14 10 mg Q4H JORGE Administration Albumin Human 25 gm in 100 mls @ 50 mls/hr 05/29/23 12:15 05/30/23 05:58 Albumin 25% IV 06/01/23 12:14 Infused Q8H JORGE Infusion Heparin Sodium/Dextrose 25,000 units in 500 mls @ 15 mls/hr 05/29/23 21:00 05/30/23 07:16 Heparin Sodium/Dextrose IV 06/28/23 20:59 750 units/hr .Q24H JORGE 15 mls/hr Titration Protocol 750 UNITS/HR Loratadine 10 mg 05/29/23 09:00 05/30/23 09:00 Loratadine 10 Mg Tab PO 06/28/23 08:59 10 mg QAM JORGE Administration Mirtazapine 30 mg 05/29/23 21:00 05/29/23 20:11 Mirtazapine Tab 15 Mg Tab PO 06/28/23 20:59 30 mg HS JORGE Administration Morphine Sulfate 3 mg 05/29/23 00:21 05/29/23 20:01 Morphine Sulfate 4 Mg/Ml 1 Ml Carp\\Vial IV 06/12/23 00:20 3 mg Q4H PRN Administration Severe Pain (Scale 7, 8, 9,10) Multivitamins 1 tab 05/29/23 09:00 05/30/23 09:01 Multivitamin Tab PO 06/28/23 08:59 1 tab DAILY JORGE Administration Oxycodone HCl 5 mg 05/29/23 00:21 05/29/23 17:54 Oxycodone Hcl Ir 5 Mg Tab (Immediate Release) PO 06/12/23 00:20 5 mg Q8 PRN Administration Pain Potassium Chloride 20 meq 05/29/23 21:00 05/30/23 09:34 Potassium Chloride Pwd 20 Meq Pack PO 06/28/23 20:59 20 meq QID JORGE Administration
[2023-05-30] MEDS: POTASSIUM CHLORIDE / WTR 10 MEQ/100 ML PLCT IV SCH (13:27)
[2023-05-30] MEDS: cefTRIAXone SODIUM 2,000 MG in DEXTROSE 5 % MINI-B 50 ML IV SCH (13:27)
[2023-05-30] MEDS: MoRPHine SULFATE 2 MG/ML CARP IV PRN (13:28)
[2023-05-30] MEDS: LIDOCAINE 5% 1 PATCH TD STA (13:49)
[2023-05-30] MEDS: POTASSIUM CHLORIDE 20 MEQ/15 ML UDC PO STA (13:49)
--- NOTE | 2023-05-30 14:29 | Nephrology Progress Note ---
Date of Service May 30, 2023 Assessment & Plan (1) Hyponatremia: Plan: severe but slowly improving hypervolemic hyponatremia in the setting of cancer metastatic to liver; needs diuresis and possibly paracentesis; at risk for ANTHONY w/ recent IV contrast creatinine stable to date; work to maintain K; appreciate laser print operator input. -continue to hold spironoalctone -fluid limit 1.5 L daily toward which protein shakes do not count >getting 3X 10 mEq IV K and started 20 mEq po qid last evening as well -continue albumin and periodic low dose lasix >>>>>PENDing next labs consider lasix increase >> reviewed these and transient hypotension this PM and will continue lasix current dose -daily STANDING weights ordereed -needs strict I/O -at risk for ANTHONY after large IV contrast load and given need for diuresis -control pain to lower ADH release > defer to primary service for this -agree w/ bmp q6h but after next one can recheck in AM > needs eukalemia to correct na -goal sNa for tomorrow AM is no more than 134 but aiming primarily to maintain or improve a small amount Admission and Anticipated Discharge Date Admission Date: May 28, 2023 Subjective started on heparin gtt and overall on the admission about 750 mL positive. seen on evenign rounds. family at bedside. pt w/ pain meds on board, tired; answers a few ROS. denies sob or uncontrolled pain. Review of Systems 2 Review of Systems: All systems reviewed & are unremarkable except as noted in Subjective (limited by pt fatigue) Physical Exam 2 Constitutional: well developed, + cachectic, + frail appearing and cooperative Eyes: EOM intact bilaterally ENMT: Ears: no external ear abnormality Nose: no external nose abnormality Mouth: + dry oral mucous membranes Neck: no nuchal rigidity Respiratory: normal respiratory effort Auscultation: + diminished lung sounds Cardiovascular: Rate/Rhythm: regular rate and regular rhythm Extremities: n o edema Gastrointestinal (Abdomen): Inspection/Auscultation: normal bowel sounds P ercussion/Palpation: + ascites, + dullness to percussion and + abdomen firm; abdomen nontender Musculoskeletal: Extremities: strength 5/5 throughout Skin: no rashes, warm and dry Neurologic: limited but appropriate speech, lethargic Psychiatric: Orientation: oriented to person and oriented to place Results & Data Vital Signs (Past 12 Hours) Vital Signs Temp Pulse Resp BP Pulse Ox O2 Del Method 05/30/23 12:37 36.6 C 82 16 121/71 98 Room Air 05/30/23 08:10 37.0 C 63 18 111/79 96 Room Air 05/30/23 02:32 36.7 C 79 16 117/86 96 Room Air Laboratory Results 05/30/23 07:00 05/30/23 08:49
[2023-05-30] MEDS: METOPROLOL TARTRATE 25 MG TAB PO SCH (16:35)
[2023-05-30 17:04] LABS: BUN Creatinine Ratio 31.6 (10-20); Calcium 8.2 mg/dl (8.6-10.3); Est GFR (African American) 89.1 ml/min; Est GFR (Non-African American) 76.9 ml/min; Potassium 4.2 mmol/L (3.5-5.1)
[2023-05-30 17:21] LABS: Partial Thromboplastin Ratio 3.5
[2023-05-30 17:58] LABS: ANTI-Xa, UFH(UnfractionatedHep > 1.50 IU/ml (0.3-0.7); Partial Thromboplastin Time 100 Seconds (21-31)
--- NOTE | 2023-05-30 18:56 | Electrocardiogram Report ---
Test Reason : Blood Pressure : / mmHG Vent. Rate : 079 BPM Atrial Rate : 079 BPM P-R Int : 160 ms QRS Dur : 074 ms QT Int : 382 ms P-R-T Axes : 025 -60 028 degrees QTc Int : 438 ms Sinus rhythm with Premature atrial complexes Left axis deviation Low voltage QRS Possible Lateral infarct (cited on or before 06-FEB-2023) Possible Inferior infarct (cited on or before 28-MAY-2023) Abnormal ECG When compared with ECG of 28-MAY-2023 18:02, Questionable change in initial forces of Anterior leads Confirmed by King Bautista ([id number]) on 05/30/2023 6:56:20 PM Referred By: REFERRED SELF Confirmed By:King Bautista
[2023-05-30] MEDS: HEPARIN SODIUM/DEXTROSE 25,000 UNITS/500 ML BAG IV SCH (22:05)
[2023-05-30] MEDS: METOPROLOL TARTRATE 1 MG/ML VIAL IV STA (22:40)
[2023-05-30 22:50] LABS: BUN Creatinine Ratio 31.3 (10-20); Calcium 8.3 mg/dl (8.6-10.3); Creatinine Clr Calc Pharmacy 57.4 ml/min; Est GFR (Non-African American) 75.9 ml/min
[2023-05-30 22:59] LABS: Partial Thromboplastin Ratio 2.9
[2023-05-30 23:23] LABS: Partial Thromboplastin Time 82 Seconds (21-31)
[2023-05-31] MEDS ORDERED: Nursing to Pharmacy Communication SCH (01:30)
[2023-05-31 04:51] LABS: Magnesium 1.9 mg/dl (1.7-2.4); Phosphorus 2.4 mg/dl (2.5-4.9)
[2023-05-31 04:52] LABS: Hematocrit (blood only) 28.3 % (42.0-52.0); Hemoglobin 9.8 g/dl (14.0-18.0); Mean Corpuscular Hemoglobin 36.8 pg (25.0-34.0); Mean Corpuscular Hgb Conc 34.6 g/dL (32.0-36.0); Mean Corpuscular Volume 106.4 fL (80.0-100.0); Mean Platelet Volume 8.6 fL (9.4-12.4); Platelet Count 109 K/uL (130-400); RDW Coefficient of Variation 17.5 % (11.5-14.5); RDW Standard Deviation 69.4 fL (36.4-46.3); Red Blood Count 2.66 M/uL (4.70-6.10); White Blood Count 9.96 K/ul (4.8-10.8)
[2023-05-31 05:12] LABS: Partial Thromboplastin Ratio 2.8; Partial Thromboplastin Time 80 Seconds (21-31)
[2023-05-31 06:20] LABS: BUN Creatinine Ratio 31.5 (10-20); Calcium 8.5 mg/dl (8.6-10.3); Creatinine Clr Calc Pharmacy 61.9 ml/min; Est GFR (African American) 95.6 ml/min; Est GFR (Non-African American) 82.5 ml/min; Potassium 3.8 mmol/L (3.5-5.1)
--- NOTE | 2023-05-31 06:45 | Electrocardiogram Report ---
Test Reason : Blood Pressure : / mmHG Vent. Rate : 099 BPM Atrial Rate : 099 BPM P-R Int : 150 ms QRS Dur : 084 ms QT Int : 356 ms P-R-T Axes : 060 -47 009 degrees QTc Int : 456 ms Poor data quality, interpretation may be adversely affected Sinus rhythm with Premature atrial complexes with PVC Left axis deviation Low voltage QRS Poor R wave progression, consider anterior NH vs. lead placement vs. LVH Nonspecific T wave abnormality Abnormal ECG When compared with ECG of 29-MAY-2023 05:03, No significant change was found Confirmed by King Bautista ([id number]) on 05/31/2023 6:45:30 AM Referred By: REFERRED SELF Confirmed By:King Bautista
[2023-05-31] MEDS ORDERED: POTASSIUM PHOS 3 MMOL/1 ML INFUSION IV STA (07:41)
[2023-05-31] MEDS: POTASSIUM PHOSPHATE 24 MMOL in SODIUM CHLORIDE 0.9% 500 ML IV ONE (08:18)
[2023-05-31 10:59] LABS: Partial Thromboplastin Ratio 2.7; Partial Thromboplastin Time 76 Seconds (21-31)
--- NOTE | 2023-05-31 14:43 | Nephrology Progress Note ---
Date of Service May 31, 2023 Assessment & Plan (1) Hyponatremia: Plan: severe but slowly improving hypervolemic hyponatremia in the setting of cancer metastatic to liver; needs diuresis and possibly paracentesis; at risk for ANTHONY w/ recent IV contrast but no evidence so far creatinine stable to date; work to maintain K; appreciate svp input. -continue to hold spironoalctone -fluid limit 1.5 L daily toward which protein shakes do not count >continue current aggressive K dose -continue albumin and q4h low dose lasix -daily STANDING weights ordered -needs strict I/O -control pain to lower ADH release > defer to primary service for this >BMP daily > needs eukalemia to correct na -goal sNa for tomorrow AM is no more than 135 but aiming primarily to maintain or improve a small amount >>>even if we correct this sodium hyponatremia is likely to recur as soon as we stop or scale back intensive therapies to correct it given his poor po intake, hypotension, advancing CA; continue goals of care discussions Admission and Anticipated Discharge Date Admission Date: May 28, 2023 Subjective family at bedside on midafternoon rounds. pt denies unconttrolled m-skeletal pain, no n/v; minimal po; not sob. no edema Review of Systems 2 Review of Systems: All systems reviewed & are unremarkable except as noted in Subjective Physical Exam 2 Constitutional: well developed, + cachectic, + frail appearing and cooperative Eyes: EOM intact bilaterally ENMT: Ears: no external ear abnormality Nose: no external nose abnormality Mouth: + dry oral mucous membranes Neck: no nuchal rigidity Respiratory: normal respiratory effort Auscultation: + diminished lung sounds Cardiovascular: Rate/Rhythm: regular rate and regular rhythm Extremities: n o edema Gastrointestinal (Abdomen): Inspection/Auscultation: normal bowel sounds P ercussion/Palpation: + ascites, + dullness to percussion and + abdomen firm; abdomen nontender Musculoskeletal: Extremities: strength 5/5 throughout Skin: no rashes, warm and dry Psychiatric: Orientation: oriented to person and oriented to place Results & Data Vital Signs (Past 12 Hours) Vital Signs Temp Pulse Resp BP Pulse Ox O2 Del Method 05/31/23 11:54 37.0 C 64 16 101/62 98 Room Air 05/31/23 07:53 36.8 C 71 16 109/70 92 Room Air Laboratory Results 05/31/23 04:17 05/31/23 05:43 bmp reviewed from today
--- NOTE | 2023-05-31 15:47 | Hospitalist Progress Note ---
Date of Service May 31, 2023 Assessment & Plan (1) Acute hyponatremia: Plan: Mr. 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 Robles dumont admitted 05/28 for evaluation of such. Per admission HPO:" Because of his weakness his chemo is on hold for almost 4 weeks now. There is a plan to change his chemo. Lately patient having de creased p.o. intake. Feeling weak and fatigued. Last few days requiring significant help for transferring. Ambulates with a walker. Seems last night got stuck on the toilet for 1 hour until family was eventually able to help him. " Credit Union Manager to help optimize nutritional status and PT/OT. Planning for paracentesis on Thursday. Attempting to manage hyponatremia with Nephrology assistance utilizing albumin assisted diuresis. Given patient's pseudocirrhosis and large volume ascites, started prophylaxis for SBP given lab values/risk factors discussed below on 05/30. Plan for NPO at midnight for large volume paracentesis. #Pseudocirrhosis c/b ascites Last admission January 2023 4 L were taken out Paracentesis planned for 06/01 2/ eliquis -Hold eliquis -Heparin drip in interim Continue SBP prophylaxis as last total protein from para <3.0 (guidelines suggest <1.5, but lab unable to quantify <3), Serum sodium <130, and BUN >25 -Ceftriaxone 2g q 24 hours #Severe hypervolemic hyponatremia *slow improvement #hypokalemia Sodium 123 on admission up to 124 this am Continue holding spironolactone and HCTZ Gentle fluids with D5 normal on admission, now discontinued BMP q12h Nephrology consulted for further recommendations -Continue with albumin assisted diuresis -Albumin 25% q 8h with furosemide 10mg IV -FR 1.5L -Daily standing weights -Strict I/Os, avoid nephrotoxic agents -Continue 20meq K QID per nephrology given lasix -Additional IV supplementation prn -Sodium increased approximately 4-5 meq in 24hours, continue current efforts per nephrology ---goal no more than 135 -Paracentesis in am #Paroxysmal Atrial fibrillation #PACS Questionable new A-fib on admission EKG, however, poor quality , repeat with PACs A fib noted on tele ECHO poor quality 2/2 ascites/poor acoustic windows per report Cardiology on consult -Continue anticoagulation at this time Started metoprolol 12.5 q6h, monitor hemodynamics for further titration Holding Apixaban 5mg BID given planned paracentesis for Thursday Heparin drip #General weakness #Severe protein calorie malnutrition #Mechanical falls Follows [facility] palliative care 05/13/2023 -Falls last Thursday per 05/28 palliative notes on EPIC Multiple missed appointments 2/2 weakness Weight down from 155 in 01/2023, cachetic Credit Union Manager consult Infectious work up negative to date, SBP ppx as above #Stage IV colon cancer metastatic to liver and lungs #immunocompromised Transverse colon adenocarcinoma, dx 2022 Currently chemo on hold for weakness since last 4 weeks -Recent changes in regimen, last treatment 5FU and leucovorin; transitioning to irinotecan, vectibix 2/2 disease progression -last follow 05/07/[address] Jeff Robbins -Last treatment 05/05 #Transaminitis *downtrending #Known metastatic liver disease Mostly from metastatic disease hepatitis B core antibody positive Trend CMP #Elevated CPK levels Getting fluids Downtrending, 820-->381, repeat in am #Chronic RLE DVT #Hypercoagulable state 2/2 malignancy On Eliquis; transitioned to heparin #General anxiety disorder Depression On buspirone, Lexapro and Remeron #Chronic pain iso malignancy Oxycodone as needed IV morphine as needed Follows with [facility] palliative care #iron deficiency anemia Patient is [employer]oro[employer]ism Hemoglobin stable at 11.9, baseline 10-11 Trend CBC, no blood product, -B12 1010, folate >22.30, iron51, TIBC 182/ferritin 469 DVT prophylaxis Hold apixaban , transitioned to Heparin Disposition Telemetry floor Pt/OT Full code as per discussion with the family on admission Admission and Anticipated Discharge Date Admission Date: May 28, 2023 Subjective NAEO Attempted to get patient to discuss thoughts/emotions more in depth, declined to engage Declined any acute pain, chest pain, SOB on exam Physical Exam Constitutional: flat/sad affect, thin/cachectic Respiratory: diminished breath sounds Cardiovascular: RRR, no murmur, no edema Gastrointestinal (Abdomen): largely protuberant, firm, nontender Results & Data Results & Data Vital Signs (Past 12 Hours) Vital Signs Temp Pulse Resp BP Pulse Ox O2 Del Method 05/31/23 11:54 37.0 C 64 16 101/62 98 Room Air 05/31/23 07:53 36.8 C 71 16 109/70 92 Room Air Laboratory Results Short CBC 05/31/23 Range/Units 04:17 WBC 9.96 (4.8-10.8) K/ul Hgb 9.8 L (14.0-18.0) g/dl Hct 28.3 L (42.0-52.0) % Plt Count 109 L (130-400) K/uL BMP 05/30/23 05/30/23 05/31/23 16:26 22:21 04:17 Sodium 126 L 127 L 129 L Potassium 4.2 D 4.0 3.8 Chloride 94 L 95 L 96 L Carbon Dioxide 23 BUN 30 H 30 H 28 H Creatinine 0.95 0.96 0.89 Glucose 127 H 113 H 95 Calcium 8.2 L 8.3 L 8.5 L 05/31/23 05:43 Sodium Cancelled Potassium Cancelled Chloride Cancelled Carbon Dioxide Cancelled BUN Cancelled Creatinine Cancelled Glucose Cancelled Calcium Cancelled Medications Administered Home Medications Medication Instructions Recorded Confirmed Last Taken apixaban 5 mg tablet (Eliquis) 5 mg PO BID 02/07/23 05/28/23 05/28/23 10:30 escitalopram oxalate 10 mg tablet 10 mg PO DAILY 02/07/23 05/28/23 Unknown hydrochlorothiazide 25 mg tablet 25 mg PO DAILY 02/07/23 05/28/23 Unknown oxycodone 5 mg tablet 5 mg PO Q8 PRN Pain 02/07/23 05/28/23 05/28/23 17:00 spironolactone 50 mg tablet 50 mg PO DAILY 02/07/23 05/28/23 Unknown buspirone 10 mg tablet 10 mg PO TID 05/28/23 05/28/23 05/28/23 16:00 loratadine 10 mg tablet 10 mg PO QAM 05/28/23 05/28/23 Unknown mirtazapine 30 mg tablet 30 mg PO HS 05/28/23 05/28/23 Unknown multivitamin 1 tab PO DAILY 05/28/23 05/28/23 Unknown ondansetron HCl 8 mg tablet 8 mg PO Q8 PRN Nausea 05/28/23 05/28/23 Unknown sennosides 8.6 mg tablet (senna) 8.6 mg PO BID PRN Constipation 05/28/23 05/28/23 Unknown Active Medications Generic Name Dose Route Start Last Admin Trade Name Marianoq PRN Reason Stop Dose Admin Apixaban 5 mg 05/29/23 09:00 05/29/23 07:49 Apixaban 5 Mg Tablet PO 06/28/23 08:59 5 mg BID JORGE Administration Buspirone HCl 10 mg 05/29/23 09:00 05/31/23 13:58 Buspirone 5 Mg Tab PO 06/28/23 08:59 10 mg TID JORGE Administration Escitalopram Oxalate 10 mg 05/29/23 09:00 05/31/23 08:19 Escitalopram Oxalate 10 Mg Tab PO 06/28/23 08:59 10 mg DAILY JORGE Administration Furosemide 10 mg 05/29/23 12:15 05/31/23 13:58 Furosemide Inj 20 Mg/2 Ml Vial IV 06/28/23 12:14 10 mg Q4H JORGE Administration Albumin Human 25 gm in 100 mls @ 50 mls/hr 05/29/23 12:15 05/31/23 13:57 Albumin 25% IV 06/01/23 12:14 50 mls/hr Q8H JORGE Administration Ceftriaxone Sodium 2,000 mg/ 50 mls @ 100 mls/hr 05/30/23 12:15 05/31/23 08:21 Dextrose IV 06/09/23 12:14 100 mls/hr DAILY JORGE Administration Protocol Heparin Sodium/Dextrose 25,000 units in 500 mls @ 12 mls/hr 05/30/23 21:45 05/31/23 04:17 Heparin Sodium/Dextrose IV 06/29/23 21:44 600 units/hr .Q24H JORGE 12 mls/hr Infusion Protocol 600 UNITS/HR Loratadine 10 mg 05/29/23 09:00 05/31/23 08:19 Loratadine 10 Mg Tab PO 06/28/23 08:59 10 mg QAM JORGE Administration Metoprolol Tartrate 12.5 mg 05/30/23 13:00 05/31/23 13:59 Metoprolol Tartrate 25 Mg Tab PO 06/29/23 12:59 12.5 mg Q6H JORGE Administration Mirtazapine 30 mg 05/29/23 21:00 05/30/23 21:10 Mirtazapine Tab 15 Mg Tab PO 06/28/23 20:59 30 mg HS JORGE Administration Miscellaneous 1 each 05/31/23 01:00 05/31/23 02:00 Remove Lidoderm Patch N/A 06/30/23 00:59 1 each DAILY@2100 JORGE Administration Morphine Sulfate 1 mg 05/30/23 12:53 05/30/23 17:23 Morphine Sulfate 2 Mg/Ml Carp IV 06/12/23 00:20 1 mg Q4H PRN Administration Severe Pain (Scale 7, 8, 9,10) Multivitamins 1 tab 05/29/23 09:00 05/31/23 08:19 Multivitamin Tab PO 06/28/23 08:59 1 tab DAILY JORGE Administration Oxycodone HCl 5 mg 05/29/23 00:21 05/31/23 13:58 Oxycodone Hcl Ir 5 Mg Tab (Immediate Release) PO 06/12/23 00:20 5 mg Q8 PRN Administration Pain Potassium Chloride 20 meq 05/29/23 21:00 05/31/23 13:58 Potassium Chloride Pwd 20 Meq Pack PO 06/28/23 20:59 20 meq QID JORGE Administration
[2023-05-31 20:39] LABS: Partial Thromboplastin Ratio 3.1
[2023-05-31 21:02] LABS: Partial Thromboplastin Time 88 Seconds (21-31)
[2023-06-01 02:19] LABS: Hematocrit (blood only) 28.3 % (42.0-52.0); Hemoglobin 9.7 g/dl (14.0-18.0); Mean Corpuscular Hemoglobin 36.9 pg (25.0-34.0); Mean Corpuscular Hgb Conc 34.3 g/dL (32.0-36.0); Mean Corpuscular Volume 107.6 fL (80.0-100.0); Mean Platelet Volume 9.7 fL (9.4-12.4); Platelet Count 113 K/uL (130-400); RDW Coefficient of Variation 17.6 % (11.5-14.5); RDW Standard Deviation 69.9 fL (36.4-46.3); Red Blood Count 2.63 M/uL (4.70-6.10); White Blood Count 11.99 K/ul (4.8-10.8)
[2023-06-01 02:29] LABS: Albumin Globulin Ratio 2.6 (0.9-2); Albumin Level 4.1 gm/dl (3.4-5.0); BUN Creatinine Ratio 34.1 (10-20); Bilirubin,Total 2.8 mg/dl (0.2-1.0); Calcium 8.7 mg/dl (8.6-10.3); Creatinine Clr Calc Pharmacy 64.9 ml/min; Est GFR (African American) 97.4 ml/min; Globulin 1.6 gm/dl (2.5-4.0); Magnesium 1.8 mg/dl (1.7-2.4); Phosphorus 2.7 mg/dl (2.5-4.9); Potassium 4.1 mmol/L (3.5-5.1); Total Protein 5.7 gm/dl (6.0-8.3)
[2023-06-01 02:49] LABS: Partial Thromboplastin Time 84 Seconds (21-31)
[2023-06-01 09:11] LABS: Partial Thromboplastin Ratio 4.7
[2023-06-01] MEDS ORDERED: Nursing to Pharmacy Communication SCH (09:45)
[2023-06-01 10:01] LABS: Partial Thromboplastin Time 132 Seconds (21-31)
[2023-06-01] MEDS: STOP ORDER [HEPARIN DRIP] ONE (10:59)
[2023-06-01] MEDS: FUROSEMIDE INJ 20 MG/2 ML VIAL IV SCH (11:01)
--- NOTE | 2023-06-01 15:17 | Ultrasound Report ---
ULTRASOUND GUIDED PARACENTESIS CLINICAL HISTORY: Ascites Procedure: Procedure and risks were explained. Informed consent was obtained. A final timeout was com pleted. The abdomen was prepped and draped in sterile fashion. 1% buffered lidocaine was utilized for skin anesthesia. Utilizing ultrasound guidance, a 5 Albanian safety centesis catheter was introduced i nto the left upper quadrant pocket of ascites. Ultrasound images were obtained. Approximately 2.2 L o f ascites fluid was drained and sent to the lab. The catheter was removed and Band-Aid applied. The p atient tolerated the procedure well. Vital signs will be monitored postprocedure. Logistical Engineer: Mickey Hatch PA-C. IMPRESSION: Ultrasound guided paracentesis as described above. Performed, dictated, and signed by Mickey Hatch PA-C; to be co-signed by Dr. Dr Christiano ramon Electronically signed by: Christiano Queen M.D. 06/01/2023 4:04 PM
[2023-06-01 15:50] LABS: Appearance Peritoneal Fluid Hazy; Color Peritoneal Fluid Straw; RBC Peritoneal Fluid Auto < 2000 /uL; WBC Peritoneal Fluid Auto 167 /ul (0-300)
--- NOTE | 2023-06-01 15:50 | Hospitalist Progress Note ---
Date of Service June 01, 2023 Assessment & Plan (1) Acute hyponatremia: Plan: Mr. 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 Robles dumont admitted 05/28 for evaluation of such. Per admission HPO:" Because of his weakness his chemo is on hold for almost 4 weeks now. There is a plan to change his chemo. Lately patient having de creased p.o. intake. Feeling weak and fatigued. Last few days requiring significant help for transferring. Ambulates with a walker. Seems last night got stuck on the toilet for 1 hour until family was eventually able to help him. 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 Last admission January 2023 4 L were taken out --S/P paracentesis on 06/01/2023: 2.2 L removed --Received IV albumin -- Peritoneal fluid cultures pending --Empirically on Rocephin for SBP prophylaxis Further management based on culture results Severe hypervolemic hyponatremia Hypokalemia Sodium 123 on admission>>> 130 today Continue to hold spironolactone and HCTZ Continue IV Lasix per Nephrology Appreciate nephrology input Monitor sodium, potassium levels Also on fluid restriction Paroxysmal Atrial fibrillation PACS Questionable new A-fib on admission EKG, however, poor quality , repeat with PACs A fib noted on tele ECHO poor quality 2/2 ascites/poor acoustic windows per report Cardiology consulted Continue metoprolol tartrate--will adjust dose once BP more stable On Eliquis for anticoagulation General weakness Severe protein calorie malnutrition H/O Mechanical falls Follows with [facility] palliative care 05/13/2023 -Falls last Thursday per 05/28 palliative notes on [facility] Multiple missed appointments 2/2 weakness Weight down from 155 in 01/2023, Cachetic Supervisor Histology consulted Continue PT OT--patient prefers discontinuation of further therapies Stage IV colon cancer metastatic to liver and lungs Immunocompromised Transverse colon adenocarcinoma, Dx 2022 Currently chemo on hold for weakness since last 4 weeks -Recent changes in regimen, last treatment 5FU and leucovorin; transitioning to irinotecan, vectibix 2/2 disease progression -last follow 05/07/[address] Jeff Robbins -Last treatment 05/05 Needs goals of care addressed Transaminitis Due to metastatic liver disease Hepatitis B core antibody positive LFTs trending down Elevated CPK levels Received getting fluids Downtrending, 820-->381 Chronic RLE DVT Hypercoagulable state 2/2 malignancy On Eliquis General anxiety disorder Depression On buspirone, Lexapro and Remeron Chronic pain iso malignancy Oxycodone as needed IV morphine as needed Follows with [facility] palliative care Iron deficiency anemia Patient is Anabaptist Hemoglobin stable at 11.9, baseline 10-11 Trend CBC, no blood product, -B12 1010, folate >22.30, iron51, TIBC 182/ferritin 469 DVT Px: Apixaban CODE STATUS Full code for now Admission and Anticipated Discharge Date Admission Date: May 28, 2023 Subjective Patient is seen and examined at bedside Poor historian Had paracentesis earlier today Intermittently delirious noted by staff Denies any chest pain, dyspnea, nausea, vomiting, abdominal pain Review of Systems Review of Systems: All systems reviewed & are unremarkable except as noted in Subjective Physical Exam Physical Exam: Physical Exam: Vitals signs as noted above General Appearance:Thin, frail, ill appearing, no apparent distress Head: normocephalic, Atraumatic Eyes: normal inspection, EOMI Neck: supple, Trachea midline Respiratory/Chest:Decreased breath sounds, CTA, No accessory muscle use Cardiovascular: S1, S2, No murmur Abdomen/GI:Firm, Non tender, +distended, Bowel sounds present Extremities/Musculoskeletal:normal inspection, no edema Neurologic/Psych:AAOX2, grossly no focal neurological deficits Skin: normal color, warm Results & Data Results & Data Vital Signs (Past 12 Hours) Vital Signs Temp Pulse Pulse Resp BP Pulse Ox O2 Del Method 06/01/23 15:16 37.0 C 68 16 106/74 96 Room Air 06/01/23 12:03 36.7 C 68 19 97/67 L 98 Room Air 06/01/23 08:00 Room Air 06/01/23 07:25 37.3 C 61 16 98/70 L 97 Room Air 06/01/23 06:01 62 Laboratory Results Short CBC 06/01/23 Range/Units 02:00 WBC 11.99 H (4.8-10.8) K/ul Hgb 9.7 L (14.0-18.0) g/dl Hct 28.3 L (42.0-52.0) % Plt Count 113 L (130-400) K/uL BMP 06/01/23 02:00 Sodium 130 L Potassium 4.1 Chloride 97 L Carbon Dioxide 24 BUN 29 H Creatinine 0.85 Glucose 89 Calcium 8.7 Liver Function 06/01/23 Range/Units 02:00 Total Bilirubin 2.8 H (0.2-1.0) mg/dl AST 107 H (13-39) U/L ALT 48 (7-52) U/L Alkaline Phosphatase 413 H (34-104) U/L Albumin 4.1 (3.4-5.0) gm/dl
[2023-06-01] MEDS: ALBUMIN 25% 12.5 GM/50 ML VIAL IV ONE (16:12)
[2023-06-01 16:36] LABS: Lymphocytes, Fluid 28 %; Mono,Macrophage,Mesothelial 64 %; Neutrophils, Fluid 8 %
[2023-06-01 16:52] LABS: BUN Creatinine Ratio 36.3 (10-20); Calcium 8.7 mg/dl (8.6-10.3); Creatinine Clr Calc Pharmacy 68.9 ml/min; Est GFR (African American) 99.9 ml/min; Est GFR (Non-African American) 86.2 ml/min; Potassium 4.1 mmol/L (3.5-5.1)
[2023-06-02 06:08] LABS: Albumin Globulin Ratio 2.4 (0.9-2); Albumin Level 3.8 gm/dl (3.4-5.0); BUN Creatinine Ratio 38.5 (10-20); Calcium 8.8 mg/dl (8.6-10.3); Creatinine Clr Calc Pharmacy 60.6 ml/min; Est GFR (African American) 93.9 ml/min; Globulin 1.6 gm/dl (2.5-4.0); Potassium 4.3 mmol/L (3.5-5.1); Total Protein 5.4 gm/dl (6.0-8.3)
[2023-06-02 06:17] LABS: Hematocrit (blood only) 29.1 % (42.0-52.0); Hemoglobin 9.8 g/dl (14.0-18.0); Mean Corpuscular Hemoglobin 36.4 pg (25.0-34.0); Mean Corpuscular Hgb Conc 33.7 g/dL (32.0-36.0); Mean Corpuscular Volume 108.2 fL (80.0-100.0); Mean Platelet Volume 9.6 fL (9.4-12.4); Platelet Count 111 K/uL (130-400); RDW Coefficient of Variation 17.4 % (11.5-14.5); RDW Standard Deviation 70.4 fL (36.4-46.3); Red Blood Count 2.69 M/uL (4.70-6.10); White Blood Count 11.87 K/ul (4.8-10.8)
--- NOTE | 2023-06-02 10:49 | Nephrology Progress Note ---
Date of Service June 02, 2023 Assessment & Plan Admission and Anticipated Discharge Date Admission Date: May 28, 2023 Subjective Assessment & Plan (1) Hyponatremia: Plan: severe but slowly improving hypervolemic hyponatremia in the setting of cancer metastatic to liver; needs diuresis and possibly paracentesis; at risk for ANTHONY w/ recent IV contrast but no evidence so far creatinine stable to date; work to maintain K; appreciate radiotelephone technical operator input. continue to hold spironolactone fluid limit 1.5 L daily toward which protein shakes do not count continue K supplement--lower the dose a bit. daily STANDING weights ordered needs strict I/O control pain to lower ADH release > defer to primary service for this BMP daily na now 130+ for 2 days in a row--this is as good as it gets with the big picture situation here. Subjective had Abd Paracentescis yesterday--2.2 liter removed. Still on Iv lasix. has Lot of pain all over the body. Review of Systems Review of Systems: All systems reviewed & are unremarkable except as noted in Subjective Physical Exam Constitutional: well developed, + cachectic, + frail appearing and cooperative Eyes: EOM intact bilaterally ENMT: Ears: no external ear abnormality Nose: no external nose abnormality Mouth: + dry oral mucous membranes Neck: no nuchal rigidity Respiratory: normal respiratory effort Auscultation: + diminished lung sounds Cardiovascular: Rate/Rhythm: regular rate and regular rhythm Extremities: no edema Gastrointestinal (Abdomen): Inspection/Auscultation: normal bowel sounds Percussion/Palpation: + ascites, + dullness to percussion and + abdomen firm; abdomen nontender Musculoskeletal: Extremities: strength 5/5 throughout Skin: no rashes, warm and dry Psychiatric: Orientation: oriented to person and oriented to place Results & Data Vital Signs (Past 12 Hours) Vital Signs Temp Pulse Pulse Resp BP BP Pulse Ox 06/02/23 08:01 37.0 C 79 16 105/76 98 06/02/23 07:47 06/02/23 03:35 36.9 C 79 16 91/61 L 97 06/01/23 23:08 77 06/01/23 22:57 37.3 C 84 17 99/67 L 97 O2 Del Method 06/02/23 08:01 Room Air 06/02/23 07:47 Room Air 06/02/23 03:35 Room Air 06/01/23 23:08 06/01/23 22:57 Room Air
[2023-06-02] MEDS ORDERED: POLYETHYLENE (MIRALAX) 17 GM PACK PO PRN (13:36)
[2023-06-02] MEDS: POLYETHYLENE (MIRALAX) 17 GM PACK PO ONE (15:16)
--- NOTE | 2023-06-02 17:18 | Hospitalist Progress Note ---
Date of Service June 02, 2023 Assessment & Plan (1) Acute hyponatremia: Plan: Mr. 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 Robles dumont admitted 05/28 for evaluation of such. Per admission HPO:" Because of his weakness his chemo is on hold for almost 4 weeks now. There is a plan to change his chemo. Lately patient having de creased p.o. intake. Feeling weak and fatigued. Last few days requiring significant help for transferring. Ambulates with a walker. Seems last night got stuck on the toilet for 1 hour until family was eventually able to help him. 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 Last admission January 2023 4 L were taken out --S/P paracentesis on 06/01/2023: 2.2 L removed --Received IV albumin -- Peritoneal fluid cultures negative to date --Empirically on Rocephin for SBP prophylaxis Will discontinue antibiotics if cultures remain negative tomorrow LFTs worsening due to mets Severe hypervolemic hyponatremia Hypokalemia Sodium 123 on admission>>> 131 today Continue to hold spironolactone and HCTZ Continue IV Lasix per Nephrology Appreciate nephrology input Monitor sodium, potassium levels Also on fluid restriction Sodium levels improving Constipation Continue bowel regimen Paroxysmal Atrial fibrillation PACS Questionable new A-fib on admission EKG, however, poor quality , repeat with PACs A fib noted on tele ECHO poor quality 2/2 ascites/poor acoustic windows per report Cardiology consulted Continue metoprolol tartrate--will adjust dose once BP more stable On Eliquis for anticoagulation General weakness Severe protein calorie malnutrition H/O Mechanical falls Follows with [facility] palliative care 05/13/2023 -Falls last Thursday per 05/28 palliative notes on 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 As per family, patient prefers to continue current management and expects to be discharged home and follow-up with oncology. Patient family expresses concern about inability to take care of the patient at home. Prefers patient to be discharged to rehab as able. --Discussed with oncology Dr. Robbins on 06/02/2023: Very poor prognosis per oncology. No further treatment recommended while hospitalized Needs follow-up with oncology on discharge Transaminitis Due to metastatic liver disease Hepatitis B core antibody positive LFTs worsening Elevated CPK levels Received getting fluids Downtrending, 820-->381 Chronic RLE DVT Hypercoagulable state 2/2 malignancy On Eliquis General anxiety disorder Depression On buspirone, Lexapro and Remeron Chronic pain iso malignancy Oxycodone as needed IV morphine as needed Follows with [facility] palliative care Iron deficiency anemia Patient is Oriental orthodox Hemoglobin stable at 11.9, baseline 10-11 Trend CBC, no blood product, -B12 1010, folate >22.30, iron51, TIBC 182/ferritin 469 DVT Px: Apixaban CODE STATUS Full code for now Disposition Rehab as able Admission and Anticipated Discharge Date Admission Date: May 28, 2023 Subjective Patient is seen and examined at bedside Reports back pain and constipation today Also reports having generalized weakness Discussed with patient's over the phone Discussed with oncology Dr. Robbins today LFTs worsening Denies any chest pain, dyspnea, nausea, vomiting, abdominal pain Poor appetite Review of Systems Review of Systems: All systems reviewed & are unremarkable except as noted in Subjective Physical Exam Physical Exam: Physical Exam: Vitals signs as noted above General Appearance:Thin, frail, ill appearing, no apparent distress Head: normocephalic, Atraumatic Eyes: normal inspection, EOMI Neck: supple, Trachea midline Respiratory/Chest:Decreased breath sounds, CTA, No accessory muscle use Cardiovascular: S1, S2, No murmur Abdomen/GI:soft, Non tender, non distended, Bowel sounds present Extremities/Musculoskeletal:normal inspection, no edema Neurologic/Psych:AAOX2, grossly no focal neurological deficits Skin: normal color, warm Results & Data Results & Data Vital Signs (Past 12 Hours) Vital Signs Temp Pulse Resp BP BP Pulse Ox O2 Del Method 06/02/23 15:43 36.5 C 72 16 94/65 L 97 Room Air 06/02/23 11:17 36.9 C 80 16 96/64 L 96 Room Air 06/02/23 08:01 37.0 C 79 16 105/76 98 Room Air 06/02/23 07:47 Room Air Laboratory Results Short CBC 06/02/23 Range/Units 05:22 WBC 11.87 H (4.8-10.8) K/ul Hgb 9.8 L (14.0-18.0) g/dl Hct 29.1 L (42.0-52.0) % Plt Count 111 L (130-400) K/uL BMP 06/02/23 05:22 Sodium 131 L Potassium 4.3 Chloride 98 Carbon Dioxide 25 BUN 35 H Creatinine 0.91 Glucose 110 H Calcium 8.8 Liver Function 06/02/23 Range/Units 05:22 Total Bilirubin 4.0 H (0.2-1.0) mg/dl AST 129 H (13-39) U/L ALT 51 (7-52) U/L Alkaline Phosphatase 518 H (34-104) U/L Albumin 3.8 (3.4-5.0) gm/dl
[2023-06-02] MEDS: POTASSIUM CHLORIDE PWD 20 MEQ PACK PO SCH (20:28)
[2023-06-03] MEDS: METOPROLOL TARTRATE 1 MG/ML VIAL IV STA (05:10)
[2023-06-03] MEDS: METOPROLOL TARTRATE 1 MG/ML VIAL IV ONE (05:13)
[2023-06-03 06:29] LABS: Hematocrit (blood only) 31.6 % (42.0-52.0); Hemoglobin 10.8 g/dl (14.0-18.0); Mean Corpuscular Hemoglobin 36.2 pg (25.0-34.0); Mean Corpuscular Hgb Conc 34.2 g/dL (32.0-36.0); Mean Platelet Volume 10.1 fL (9.4-12.4); Platelet Count 147 K/uL (130-400); RDW Coefficient of Variation 17.1 % (11.5-14.5); RDW Standard Deviation 67.2 fL (36.4-46.3); Red Blood Count 2.98 M/uL (4.70-6.10); White Blood Count 14.58 K/ul (4.8-10.8)
[2023-06-03 06:46] LABS: Albumin Globulin Ratio 1.9 (0.9-2); Albumin Level 3.7 gm/dl (3.4-5.0); BUN Creatinine Ratio 46.5 (10-20); Bilirubin,Total 3.5 mg/dl (0.2-1.0); Calcium 8.9 mg/dl (8.6-10.3); Creatinine Clr Calc Pharmacy 53.5 ml/min; Est GFR (African American) 84.8 ml/min; Est GFR (Non-African American) 73.2 ml/min; Potassium 4.7 mmol/L (3.5-5.1); Total Protein 5.7 gm/dl (6.0-8.3)
--- NOTE | 2023-06-03 10:56 | Electrocardiogram Report ---
Test Reason : Blood Pressure : / mmHG Vent. Rate : 124 BPM Atrial Rate : 124 BPM P-R Int : 136 ms QRS Dur : 076 ms QT Int : 300 ms P-R-T Axes : -02 -64 034 degrees QTc Int : 431 ms Sinus tachycardia Left axis deviation Low voltage QRS Possible Old Lateral infarct (cited on or before 03-JUN-2023) Abnormal ECG When compared with ECG of 30-MAY-2023 13:17, Premature atrial complexes are no longer Present HR has increased by 25 bpm Confirmed by Bradley Medina ([id number]) on 06/03/2023 10:55:44 AM Referred By: REFERRED SELF Confirmed By:Bradley Medina
[2023-06-03] MEDS: POLYETHYLENE (MIRALAX) 17 GM PACK PO SCH (12:43)
--- NOTE | 2023-06-03 15:00 | XRay Report ---
XR chest 1V portable HISTORY: 77 years-old Male Leukocytosis acute leukocytosis COMPARISON: 05/28/2023 TECHNIQUE: AP view the chest FINDINGS: Cardiac mediastinal and hilar silhouettes are unchanged. Stable positioning of the right pectoral Inf use-a-Port catheter. Chronic right hemidiaphragmatic elevation. Probable trace pleural effusions. No pneumothorax or overt pulmonary edema or lobar airspace consolidation. Lungs are hypoinflated. Degene rative change of the shoulders and spine. IMPRESSION: 1. Cardiomegaly without acute process. 2. Probable trace pleural effusions persist. ACT 112: Negative or not required by law. The above report was generated using voice recognition software. It may contain grammatical, syntax o r spelling errors. Electronically signed by: Christiano Queen M.D. 06/03/2023 2:58 PM
--- NOTE | 2023-06-03 16:13 | Hospitalist Progress Note ---
Date of Service June 03, 2023 Assessment & Plan (1) Acute hyponatremia: Plan: Mr. 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 Robles dumont admitted 05/28 for evaluation of such. Per admission HPO:" Because of his weakness his chemo is on hold for almost 4 weeks now. There is a plan to change his chemo. Lately patient having de creased p.o. intake. Feeling weak and fatigued. Last few days requiring significant help for transferring. Ambulates with a walker. Seems last night got stuck on the toilet for 1 hour until family was eventually able to help him. 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 Last admission January 2023 4 L were taken out --S/P paracentesis on 06/01/2023: 2.2 L removed --Received IV albumin, lasix -- Peritoneal fluid cultures negative to date --Empirically received Rocephin for SBP prophylaxis LFTs worsening due to mets Monitor volume status while off IV diuretics No plan to resume HCTZ, Aldactone for now given hyponatremia Will consider adding Lasix if develops hypervolemia Severe hypervolemic hyponatremia Hypokalemia Sodium 123 on admission>>> 132 today HCTZ discontinued Received IV Lasix Appreciate nephrology input Monitor sodium, potassium levels Continue fluid restriction Plan to discharge to rehab facility as able Leukocytosis No clear source of infection Monitor Constipation Continue bowel regimen Paroxysmal Atrial fibrillation PACS Questionable new A-fib on admission EKG, however, poor quality , repeat with PACs A fib noted on tele ECHO poor quality 2/2 ascites/poor acoustic windows per report Cardiology consulted Continue metoprolol tartrate--will adjust dose once BP more stable On Eliquis for anticoagulation General weakness Severe protein calorie malnutrition H/O Mechanical falls Follows with [facility] palliative care 05/13/2023 -Falls last Thursday per 05/28 palliative notes on [facility] Multiple missed appointments 2/2 weakness Weight down from 155 in 01/2023, Cachetic [employer]ar [employer] 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 As per family, patient prefers to continue current management and expects to be discharged home and follow-up with oncology. Patient family expresses concern about inability to take care of the patient at home. Prefers patient to be discharged to rehab as able. --Discussed with oncology Dr. Robbins on 06/02/2023: Very poor prognosis per oncology. No further treatment recommended while hospitalized Needs follow-up with oncology on discharge Transaminitis Due to metastatic liver disease Hepatitis B core antibody positive LFTs worsening Elevated CPK levels Received getting fluids Downtrending, 820-->381 Chronic RLE DVT Hypercoagulable state 2/2 malignancy On Eliquis General anxiety disorder Depression On buspirone, Lexapro and Remeron Chronic pain iso malignancy Oxycodone as needed IV morphine as needed Follows with [facility] palliative care Iron deficiency anemia Patient is Shinto Hemoglobin stable at 11.9, baseline 10-11 Trend CBC, no blood product, -B12 1010, folate >22.30, iron51, TIBC 182/ferritin 469 DVT Px: Apixaban CODE STATUS Full code for now per patient's wishes Disposition Rehab as able Admission and Anticipated Discharge Date Admission Date: May 28, 2023 Subjective Patient is seen and examined at bedside Reports having bowel movements earlier today States feeling tired Discussed with nephrology today Sodium levels continue to improve Patient seemed to understand poor prognosis Denies any chest pain, dyspnea, nausea, vomiting, abdominal pain Review of Systems Review of Systems: All systems reviewed & are unremarkable except as noted in Subjective Physical Exam Physical Exam: Physical Exam: Vitals signs as noted above General Appearance:Thin, frail, ill appearing, no apparent distress Head: normocephalic, Atraumatic Eyes: normal inspection, EOMI Neck: supple, Trachea midline Respiratory/Chest:Decreased breath sounds, CTA, No accessory muscle use Cardiovascular: S1, S2, No murmur Abdomen/GI:soft, Non tender, non distended, Bowel sounds present Extremities/Musculoskeletal:normal inspection, no edema Neurologic/Psych:AAOX2, grossly no focal neurological deficits Skin: normal color, warm Results & Data Results & Data Vital Signs (Past 12 Hours) Vital Signs Temp Pulse Pulse Resp BP BP Pulse Ox 06/03/23 15:10 36.6 C 78 16 92/61 L 98 06/03/23 10:59 36.3 C L 71 16 110/75 100 06/03/23 07:53 36.3 C L 75 16 118/85 99 06/03/23 07:29 06/03/23 07:10 80 06/03/23 05:37 80 108/78 06/03/23 05:25 80 108/78 06/03/23 05:10 122 H 115/80 06/03/23 04:55 36.7 C 122 H 18 115/80 98 O2 Del Method 06/03/23 15:10 Room Air 06/03/23 10:59 Room Air 06/03/23 07:53 Room Air 06/03/23 07:29 Room Air 06/03/23 07:10 06/03/23 05:37 06/03/23 05:25 06/03/23 05:10 06/03/23 04:55 Room Air Laboratory Results Short CBC 06/03/23 Range/Units 06:06 WBC 14.58 H (4.8-10.8) K/ul Hgb 10.8 L (14.0-18.0) g/dl Hct 31.6 L (42.0-52.0) % Plt Count 147 (130-400) K/uL BMP 06/03/23 06:06 Sodium 132 L Potassium 4.7 Chloride 98 Carbon Dioxide 25 BUN 46 H Creatinine 0.99 Glucose 123 H Calcium 8.9 Liver Function 06/03/23 Range/Units 06:06 Total Bilirubin 3.5 H (0.2-1.0) mg/dl AST 154 H (13-39) U/L ALT 68 H (7-52) U/L Alkaline Phosphatase 642 H (34-104) U/L Albumin 3.7 (3.4-5.0) gm/dl
[2023-06-04 05:19] LABS: Basophils # (auto) 0.03 K/uL (0.00-0.20); Basophils % (auto) 0.2 %; Eosinophils # (auto) 0.02 K/uL (0.00-0.50); Eosinophils % (auto) 0.1 %; Hematocrit (blood only) 32.3 % (42.0-52.0); Hemoglobin 10.9 g/dl (14.0-18.0); Immature Granulocytes # (auto) 0.28 K/uL (0.01-0.20); Lymphocytes # (auto) 0.64 K/uL (1.20-3.40); Lymphocytes % (auto) 4.5 %; Mean Corpuscular Hemoglobin 36.5 pg (25.0-34.0); Mean Corpuscular Hgb Conc 33.7 g/dL (32.0-36.0); Mean Platelet Volume 9.9 fL (9.4-12.4); Monocytes # (auto) 1.29 K/uL (0.11-0.59); Monocytes % (auto) 9.1 %; Neutrophils # (auto) 11.92 K/uL (1.40-6.50); Neutrophils % (auto) 84.1 %; Platelet Count 153 K/uL (130-400); RDW Standard Deviation 66.4 fL (36.4-46.3); Red Blood Count 2.99 M/uL (4.70-6.10); White Blood Count 14.18 K/ul (4.8-10.8)
[2023-06-04 05:44] LABS: BUN Creatinine Ratio 47.6 (10-20); Calcium 8.9 mg/dl (8.6-10.3); Creatinine Clr Calc Pharmacy 50.4 ml/min; Est GFR (Non-African American) 68.1 ml/min; Potassium 5.2 mmol/L (3.5-5.1)
[2023-06-04] MEDS ORDERED: SPIRONOLACTONE 25 MG TAB PO SCH (09:00)
[2023-06-04] MEDS: FUROSEMIDE 20 MG TAB PO ONE (10:14)
--- NOTE | 2023-06-04 16:26 | Hospitalist Progress Note ---
Date of Service June 04, 2023 Assessment & Plan (1) Acute hyponatremia: Plan: Mr. 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 Robles dumont admitted 05/28 for evaluation of such. Per admission HPO:" Because of his weakness his chemo is on hold for almost 4 weeks now. There is a plan to change his chemo. Lately patient having de creased p.o. intake. Feeling weak and fatigued. Last few days requiring significant help for transferring. Ambulates with a walker. Seems last night got stuck on the toilet for 1 hour until family was eventually able to help him. 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 Lasix Severe hypervolemic hyponatremia Hypokalemia Sodium 123 on admission>>> 131 today HCTZ discontinued Received IV Lasix Appreciate nephrology input Monitor sodium, potassium levels Continue fluid restriction Plan to discharge to rehab facility as able Continue p.o. Lasix Mild hyperkalemia Potassium 5.2 Potassium supplements discontinued Monitor Leukocytosis No clear source of infection Monitor Constipation Continue bowel regimen Paroxysmal Atrial fibrillation PACS Questionable new A-fib on admission EKG, however, poor quality , repeat with PACs A fib noted on tele ECHO poor quality 2/2 ascites/poor acoustic windows per report Cardiology consulted Continue metoprolol tartrate--will adjust dose once BP more stable On Eliquis for anticoagulation General weakness Severe protein calorie malnutrition H/O Mechanical falls Follows with [facility] palliative care 05/13/2023 -Falls last Thursday per 05/28 palliative notes on [facility] Multiple missed appointments 2/2 weakness Weight down from 155 in 01/2023, Cachetic Tactical Debriefer consulted Continue PT OT: Encouraged to cooperate with PT OT Stage IV colon cancer metastatic to liver and lungs Immunocompromised Transverse colon adenocarcinoma, Dx 2022 Currently chemo on hold for weakness since last 4 weeks -Recent changes in regimen, last treatment 5FU and leucovorin; transitioning to irinotecan, vectibix 2/2 disease progression -last follow 05/07/[address] Jeff Robbins -Last treatment 05/05 --Discussed with patient's on 06/02/2023: Defers decisions to patient. As per family, patient prefers to continue current management and expects to be discharged home and follow-up with oncology. Patient family expresses concern about inability to take care of the patient at home. Prefers patient to be discharged to rehab as able. --Discussed with oncology Dr. Robbins on 06/02/2023: Very poor prognosis per oncology. No further treatment recommended while hospitalized Needs follow-up with oncology on discharge Transaminitis Due to metastatic liver disease Hepatitis B core antibody positive LFTs worsening Elevated CPK levels Received getting fluids Downtrending, 820-->381 Chronic RLE DVT Hypercoagulable state 2/2 malignancy On Eliquis General anxiety disorder Depression On buspirone, Lexapro and Remeron Chronic pain iso malignancy Oxycodone as needed IV morphine as needed Follows with [facility] palliative care Iron deficiency anemia Patient is [employer] Hemoglobin stable at 11.9, baseline 10-11 Trend CBC, no blood product, -B12 1010, folate >22.30, iron51, TIBC 182/ferritin 469 DVT Px: Apixaban CODE STATUS Full code for now per patient's wishes Disposition Rehab as able Admission and Anticipated Discharge Date Admission Date: May 28, 2023 Subjective Patient is seen and examined at bedside States feeling very tired and weak today Appetite remains poor Denies any chest pain, dyspnea, dizziness, nausea, vomiting, abdominal pain Waiting for rehab placement Review of Systems Review of Systems: All systems reviewed & are unremarkable except as noted in Subjective Physical Exam Physical Exam: Physical Exam: Vitals signs as noted above General Appearance:Thin, frail, ill appearing, no apparent distress Head: normocephalic, Atraumatic Eyes: normal inspection, EOMI Neck: supple, Trachea midline Respiratory/Chest:Decreased breath sounds, CTA, No accessory muscle use Cardiovascular: S1, S2, No murmur Abdomen/GI:soft, Non tender, non distended, Bowel sounds present Extremities/Musculoskeletal:normal inspection, no edema Neurologic/Psych:AAOX2, grossly no focal neurological deficits Skin: normal color, warm Results & Data Results & Data Vital Signs (Past 12 Hours) Vital Signs Temp Pulse Pulse Resp BP Pulse Ox O2 Del Method 06/04/23 15:00 72 06/04/23 11:33 36.4 C L 73 16 111/79 97 Room Air 06/04/23 09:00 Room Air 06/04/23 08:14 36.5 C 82 16 114/85 97 Room Air 06/04/23 07:59 82 Laboratory Results Short CBC 06/04/23 Range/Units 04:47 WBC 14.18 H (4.8-10.8) K/ul Hgb 10.9 L (14.0-18.0) g/dl Hct 32.3 L (42.0-52.0) % Plt Count 153 (130-400) K/uL BMP 06/04/23 04:47 Sodium 131 L Potassium 5.2 H Chloride 98 Carbon Dioxide 24 BUN 50 H Creatinine 1.05 Glucose 109 H Calcium 8.9
[2023-06-05 05:10] LABS: Basophils # (auto) 0.03 K/uL (0.00-0.20); Basophils % (auto) 0.2 %; Eosinophils # (auto) 0.01 K/uL (0.00-0.50); Eosinophils % (auto) 0.1 %; Hematocrit (blood only) 26.3 % (42.0-52.0); Hemoglobin 9.1 g/dl (14.0-18.0); Immature Granulocytes # (auto) 0.26 K/uL (0.01-0.20); Lymphocytes # (auto) 0.61 K/uL (1.20-3.40); Lymphocytes % (auto) 4.7 %; Mean Corpuscular Hemoglobin 36.5 pg (25.0-34.0); Mean Corpuscular Hgb Conc 34.6 g/dL (32.0-36.0); Mean Corpuscular Volume 105.6 fL (80.0-100.0); Mean Platelet Volume 9.6 fL (9.4-12.4); Monocytes # (auto) 1.06 K/uL (0.11-0.59); Monocytes % (auto) 8.2 %; Neutrophils # (auto) 10.98 K/uL (1.40-6.50); Neutrophils % (auto) 84.8 %; Platelet Count 132 K/uL (130-400); RDW Coefficient of Variation 16.9 % (11.5-14.5); RDW Standard Deviation 65.4 fL (36.4-46.3); Red Blood Count 2.49 M/uL (4.70-6.10); White Blood Count 12.95 K/ul (4.8-10.8)
[2023-06-05 05:16] LABS: BUN Creatinine Ratio 51.5 (10-20); Creatinine Clr Calc Pharmacy 53.6 ml/min; Est GFR (African American) 84.8 ml/min; Est GFR (Non-African American) 73.2 ml/min; Potassium 4.2 mmol/L (3.5-5.1)
[2023-06-05] MEDS: CALCIUM CARBONATE 1250MG TAB PO SCH (10:25)
--- NOTE | 2023-06-05 12:35 | Hospitalist Progress Note ---
Date of Service June 05, 2023 Assessment & Plan (1) Acute hyponatremia: Plan: Mr. 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 Robles dumont admitted 05/28 for evaluation of such. Per admission HPO:" Because of his weakness his chemo is on hold for almost 4 weeks now. There is a plan to change his chemo. Lately patient having de creased p.o. intake. Feeling weak and fatigued. Last few days requiring significant help for transferring. Ambulates with a walker. Seems last night got stuck on the toilet for 1 hour until family was eventually able to help him. 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 Last admission January 2023 4 L were taken out --S/P paracentesis on 06/01/2023: 2.2 L removed --Received IV albumin, lasix -- Peritoneal fluid cultures negative to date --Empirically received Rocephin for SBP prophylaxis LFTs worsening due to mets Monitor volume status while off IV diuretics No plan to resume HCTZ, Aldactone for now given hyponatremia Continue Lasix 20mg daily as needed if BP tolerates Discharge to rehab facility today Severe hypervolemic hyponatremia Hypokalemia Sodium 123 on admission>>> 134 today HCTZ discontinued Received IV Lasix Appreciate nephrology input Monitor sodium, potassium levels Continue fluid restriction Continue p.o. Lasix as above Mild hyperkalemia Potassium 5.2>>4.2 Potassium supplements discontinued Monitor Leukocytosis No clear source of infection Monitor Constipation Continue bowel regimen Paroxysmal Atrial fibrillation PACS Questionable new A-fib on admission EKG, however, poor quality , repeat with PACs A fib noted on tele ECHO poor quality 2/2 ascites/poor acoustic windows per report Cardiology consulted Continue metoprolol tartrate--will adjust dose once BP more stable On Eliquis for anticoagulation General weakness Severe protein calorie malnutrition H/O Mechanical falls Follows with [facility] palliative care 05/13/2023 -Falls last Thursday per 05/28 palliative notes on [facility] Multiple missed appointments 2/2 weakness Weight down from 155 in 01/2023, Cachetic Content Engineer consulted Continue PT OT: Encouraged to cooperate with PT OT Stage IV colon cancer metastatic to liver and lungs Immunocompromised Transverse colon adenocarcinoma, Dx 2022 Currently chemo on hold for weakness since last 4 weeks -Recent changes in regimen, last treatment 5FU and leucovorin; transitioning to irinotecan, vectibix 2/2 disease progression -last follow 05/07/[address] Jeff Robbins -Last treatment 05/05 --Discussed with patient's on 06/02/2023: Defers decisions to patient. As per family, patient prefers to continue current management and expects to be discharged home and follow-up with oncology. Patient family expresses concern about inability to take care of the patient at home. Prefers patient to be discharged to rehab as able. --Discussed with oncology Dr. Robbins on 06/02/2023: Very poor prognosis per oncology. No further treatment recommended while hospitalized Needs follow-up with oncology on discharge Transaminitis Due to metastatic liver disease Hepatitis B core antibody positive LFTs worsening Elevated CPK levels Received getting fluids Downtrending, 820-->381 Chronic RLE DVT Hypercoagulable state 2/2 malignancy On Eliquis General anxiety disorder Depression On buspirone, Lexapro and Remeron Chronic pain iso malignancy Oxycodone as needed IV morphine as needed Follows with [facility] palliative care Iron deficiency anemia Patient is [employer] Hemoglobin stable at 11.9, baseline 10-11 Trend CBC, no blood product, -B12 1010, folate >22.30, iron51, TIBC 182/ferritin 469 DVT Px: Apixaban CODE STATUS Full code for now per patient's wishes Disposition Rehab Admission and Anticipated Discharge Date Admission Date: May 28, 2023 Subjective Patient is seen and examined at bedside No new complaints Feels tired Poor appetite Denies any chest pain, dyspnea, dizziness, nausea, vomiting, abdominal pain Plan to be discharged to rehab facility today Review of Systems Review of Systems: All systems reviewed & are unremarkable except as noted in Subjective Physical Exam Physical Exam: Physical Exam: Vitals signs as noted above General Appearance:Thin, frail, ill appearing, no apparent distress Head: normocephalic, Atraumatic Eyes: normal inspection, EOMI Neck: supple, Trachea midline Respiratory/Chest:Decreased breath sounds, CTA, No accessory muscle use Cardiovascular: S1, S2, No murmur Abdomen/GI:soft, Non tender, non distended, Bowel sounds present Extremities/Musculoskeletal:normal inspection, no edema Neurologic/Psych:AAOX2, grossly no focal neurological deficits Skin: normal color, warm Results & Data Results & Data Vital Signs (Past 12 Hours) Vital Signs Temp Pulse Pulse Resp BP Pulse Ox O2 Del Method 06/05/23 09:00 Room Air 06/05/23 08:18 36.2 C L 69 17 94/66 L 98 Room Air 06/05/23 07:00 70 06/05/23 02:43 36.5 C 78 16 98/65 L 99 Room Air 06/05/23 02:00 76 Laboratory Results Short CBC 06/05/23 Range/Units 03:54 WBC 12.95 H (4.8-10.8) K/ul Hgb 9.1 L (14.0-18.0) g/dl Hct 26.3 L (42.0-52.0) % Plt Count 132 (130-400) K/uL BMP 06/05/23 03:54 Sodium 134 L Potassium 4.2 Chloride 106 Carbon Dioxide 20 L BUN 51 H Creatinine 0.99 Glucose 116 H Calcium 7.0 L
--- NOTE | 2023-06-05 12:47 | Discharge Summary ---
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 Because of his weakness his chemo is on hold for almost 4 weeks now. There is a plan to change his chemo. Lately patient having decreased p.o. intake. Feeling weak and fatigued. Last few days requiring significant help for transferring. Ambulates with a walker. Seems last night got stuck on the toilet for 1 hour until family was eventually able to help him. Patient speaking in very low volume. Could tell his name. Could tell his date of . Knows that he is in the hospital. Could tell the month. But thinks it is 2022. Complains of pain in the rib cage. Denies any headache. No dizziness. Has some runny nose. No sore throat or cough. No fevers. No nausea. Denies abdominal pain. Normal bowel and bladder movements. Denies blood in the stools. Hemodynamically stable.Family in the room. Past medical history. As mentioned above Past surgical history. IR biopsy. Paracentesis Social history. . No smoking. No alcohol use. No drug use. Family history. No family history on file Admission Exam Per Admitting Provider General- weak. Not in acute distress Head- atraumatic Eyes- PERRL. ENT- oropharynx clear Neck- supple, no JVD. Lungs- clear to auscultation no wheezing or crackles Heart- regular rhythm; no murmur, no gallop. Abdomen- normal bowel sounds, distended no tenderness Extremities- no pretibial edema, no erythema seen Neuro- alert, oriented x 2; PERRL, no facial palsy; no dysarthria; moves extremities Skin- Dry Principal Diagnosis Stage IV colon cancer metastatic to liver and lungs General weakness Severe protein calorie malnutrition Severe hypervolemic hyponatremia Ascites Discharge Data Allergies Allergy/AdvReac Type Severity Reaction Status Date / Time prochlorperazine Allergy Severe Anaphylaxis Verified 05/29/23 00:35 [From Compazine] Consultations 05/28/23 20:44 ED Decision to Admit Stat 05/29/23 08:00 Consult Nephrology Routine Procedures Performed Laboratory Results WBC 12.95 K/ul (4.8-10.8) H 06/05/23 03:54 RBC 2.49 M/uL (4.70-6.10) L 06/05/23 03:54 Hgb 9.1 g/dl (14.0-18.0) L 06/05/23 03:54 Hct 26.3 % (42.0-52.0) L 06/05/23 03:54 MCV 105.6 fL (80.0-100.0) H 06/05/23 03:54 MCH 36.5 pg (25.0-34.0) H 06/05/23 03:54 MCHC 34.6 g/dL (32.0-36.0) 06/05/23 03:54 RDW Std Deviation 65.4 fL (36.4-46.3) H 06/05/23 03:54 RDW Coeff of Mayra 16.9 % (11.5-14.5) H 06/05/23 03:54 Plt Count 132 K/uL (130-400) 06/05/23 03:54 MPV 9.6 fL (9.4-12.4) 06/05/23 03:54 Immature Gran % (Auto) 2.0 % 06/05/23 03:54 Neut % (Auto) 84.8 % 06/05/23 03:54 Lymph % (Auto) 4.7 % 06/05/23 03:54 Braxton % (Auto) 8.2 % 06/05/23 03:54 Eos % (Auto) 0.1 % 06/05/23 03:54 Baso % (Auto) 0.2 % 06/05/23 03:54 Neut # (Auto) 10.98 K/uL (1.40-6.50) H 06/05/23 03:54 Lymph # (Auto) 0.61 K/uL (1.20-3.40) L 06/05/23 03:54 Braxton # (Auto) 1.06 K/uL (0.11-0.59) H 06/05/23 03:54 Eos # (Auto) 0.01 K/uL (0.00-0.50) 06/05/23 03:54 Baso # (Auto) 0.03 K/uL (0.00-0.20) 06/05/23 03:54 Immature Gran # (Auto) 0.26 K/uL (0.01-0.20) H 06/05/23 03:54 PT 15.6 Seconds (9.0-12.0) H 05/30/23 07:00 INR 1.5 (0.9-1.1) H 05/30/23 07:00 APTT 132 Seconds (21-31) H* 06/01/23 08:06 PTT Ratio 4.7 06/01/23 08:06 Heparin Anti-Xa, Unfract > 1.50 IU/ml (0.3-0.7) H* 05/30/23 16:26 Sodium 134 mmol/L (136-145) L 06/05/23 03:54 Potassium 4.2 mmol/L (3.5-5.1) 06/05/23 03:54 Chloride 106 mmol/L (98-107) 06/05/23 03:54 Carbon Dioxide 20 mmol/L (21-32) L 06/05/23 03:54 Anion Gap 8 (3-11) 06/05/23 03:54 BUN 51 mg/dl (6-23) H 06/05/23 03:54 Creatinine 0.99 mg/dl (0.6-1.4) 06/05/23 03:54 Est Cr Clr Drug Dosing 53.6 ml/min 06/05/23 03:54 Est GFR ( Amer) 84.8 ml/min 06/05/23 03:54 Est GFR (Non-Af Amer) 73.2 ml/min 06/05/23 03:54 BUN/Creatinine Ratio 51.5 (10-20) H 06/05/23 03:54 Glucose 116 mg/dl (70-99(Fasting)) H 06/05/23 03:54 Osmolality 271 mOsm/kg (280-300) L 05/29/23 05:24 Calcium 7.0 mg/dl (8.6-10.3) L 06/05/23 03:54 Phosphorus 2.7 mg/dl (2.5-4.9) 06/01/23 02:00 Magnesium 1.8 mg/dl (1.7-2.4) 06/01/23 02:00 Iron 51 mcg/dl (35-175) 05/30/23 01:50 TIBC 182 mcg/dl (250-450) L 05/30/23 01:50 Unsaturated IBC 131 mcg/dl (155-355) L 05/30/23 01:50 Transferrin % Sat 28 % (20-50) 05/30/23 01:50 Ferritin 469.3 ng/ml (8-388) H 05/30/23 01:50 Total Bilirubin 3.5 mg/dl (0.2-1.0) H 06/03/23 06:06 Direct Bilirubin 1.3 mg/dl (0-0.2) H 05/30/23 01:50 AST 154 U/L (13-39) H 06/03/23 06:06 ALT 68 U/L (7-52) H 06/03/23 06:06 Alkaline Phosphatase 642 U/L (34-104) H 06/03/23 06:06 Total Creatine Kinase 381 U/L (30-223) H 05/29/23 05:24 Troponin I High Sens 10.9 pg/ml (0-20) 05/29/23 05:24 Total Protein 5.7 gm/dl (6.0-8.3) L 06/03/23 06:06 Albumin 3.7 gm/dl (3.4-5.0) 06/03/23 06:06 Globulin 2.0 gm/dl (2.5-4.0) L 06/03/23 06:06 Albumin/Globulin Ratio 1.9 (0.9-2) 06/03/23 06:06 Lipase 30 U/L (11-82) 05/28/23 18:15 Vitamin B12 1010 pg/ml (180-914) H 05/30/23 01:49 Folate > 22.30 ng/ml (>5.38) 05/30/23 01:49 Procalcitonin 0.55 ng/ml (0-0.5) H 05/30/23 01:50 TSH 5.809 uIu/ml (0.300-4.500) H 05/28/23 18:15 Free T4 1.15 ng/dl (0.61-1.60) 05/28/23 18:15 Urine Color Dark Yellow 05/29/23 01:18 Urine Appearance Cloudy (Clear) A 05/29/23 01:18 Urine pH 6.0 (4.5-7.5) 05/29/23 01:18 Ur Specific [place] 1.045 (1.000-1.030) H 05/29/23 01:18 Urine Protein Trace (Negative) H 05/29/23 01:18 Urine Glucose (UA) Negative (Negative) 05/29/23 01:18 Urine Ketones Negative (Negative) 05/29/23 01:18 Urine Blood Negative (Negative) 05/29/23 01:18 Urine Nitrite Positive (Negative) A 05/29/23 01:18 Urine Bilirubin 1+ (Negative) H 05/29/23 01:18 Urine Urobilinogen Positive (Negative) H 05/29/23 01:18 Ur Leukocyte Esterase Trace (Negative) H 05/29/23 01:18 Urine WBC (Auto) 1-5 /hpf (0-5) 05/29/23 01:18 Urine RBC (Auto) 0-4 /hpf (0-4) 05/29/23 01:18 U Hyaline Cast (Auto) 5-10 /lpf (0-5) H 05/29/23 01:18 U Epithel Cells (Auto) 10-20 /lpf (0-5) H 05/29/23 01:18 Urine Bacteria (Auto) Negative (Negative) 05/29/23 01:18 Urine Crystals Not Reportable 05/29/23 01:18 Calcium Oxalate Crystal Present (None Prsent) A 05/29/23 01:18 Urine Osmolality 600 mOsm/kg (500-800) 05/29/23 01:18 Ur Random Sodium < 10 mmol/L 05/29/23 01:18 Fluid Neutrophils % 8 % 06/01/23 Unknown Fluid Lymphocytes % 28 % 06/01/23 Unknown Fluid Meso/Macro/Braxton % 64 % 06/01/23 Unknown Fluid Comment 06/01/23 Unknown Peritoneal Color Straw 06/01/23 Unknown Peritoneal Appearance Hazy 06/01/23 Unknown Peritoneal WBC (Auto) 167 /ul (0-300) 06/01/23 Unknown Peritoneal RBC (Auto) < 2000 /uL 06/01/23 Unknown SARS-CoV-2 (PCR) NEGATIVE (Negative) 05/28/23 18:28 Influenza Type A (PCR) Negative (Neg) 05/28/23 18:28 Influenza Type B (PCR) Negative (Neg) 05/28/23 18:28 RSV (RT-PCR) Negative (Neg) 05/28/23 18:28 Impressions Abdomen/Pelvis CT 05/28/23 18:32 Exam(s): CT ABDOMEN + PELVIS With Contrast IV Amt: 118ML OPTIRAY 320 EXAM: CT Abdomen and Pelvis With Intravenous Contrast CLINICAL HISTORY: Reason for exam: fall, weak, cancer, back pain. TECHNIQUE: Axial computed tomography images of the abdomen and pelvis with intravenous contrast. CTDI is 21.73 mGy and DLP is 598.51 mGy-cm. Automated exposure control was utilized for the study. A dose lowering technique was utilized adhering to the principles of ALARA. CONTRAST: Patient received 118ML OPTIRAY 320 of IV contrast COMPARISON: CT abdomen/pelvis on 02/06/2023. FINDINGS: Lung bases: Unremarkable. No mass. No consolidation. ABDOMEN: Liver: Extensive hypoattenuating liver metastases. Hepatomegaly. Nodular contour of the liver. Gallbladder and bile ducts: Unremarkable. No calcified stones. No ductal dilation. Pancreas: Unremarkable. No mass. No ductal dilation. Spleen: Unremarkable. No splenomegaly. Adrenals: Unremarkable. No mass. Kidneys and ureters: Small hypodense lesions in the kidneys are nonspecific. Further evaluation could be performed with ultrasound if clinically indicated. No hydronephrosis or obstructing stone. Stomach and bowel: Moderate to large amount of stool in the colon. No small bowel obstruction. Evaluation of the stomach is limited by underdistention. No mucosal thickening. PELVIS: Appendix: No findings to suggest acute appendicitis. Bladder: Unremarkable. No mass. Reproductive: Prostatomegaly. ABDOMEN and PELVIS: Intraperitoneal space: Large amount of ascites. Nonspecific 5 mm focus of enhancement along the right posterior pelvic peritoneum and more subtle foci of enhancement. There is also peritoneal enhancement along the anterior upper abdomen. Question peritoneal metastases. No free air. Bones/joints: Degenerative changes of the spine. No acute fracture. No dislocation. Soft tissues: Body wall edema. Small fat-containing left femoral hernia. Vasculature: Phleboliths in the pelvis. No abdominal aortic aneurysm. Lymph nodes: Unremarkable. No enlarged lymph nodes. IMPRESSION: 1. Extensive hypoattenuating liver metastases. Hepatomegaly. Nodular contour of the liver. 2. Large amount of ascites. 3. Nonspecific 5 mm focus of enhancement along the right posterior pelvic peritoneum and more subtle foci of enhancement. There is also peritoneal enhancement along the anterior upper abdomen. Question peritoneal metastases. 4. Prostatomegaly. Electronically signed by: Mohini Beckwith M.D. 05/28/23 20:[address] 05/28/23 18:32 Exam(s): CT C SPINE EXAM: CT Cervical Spine Without Intravenous Contrast CLINICAL HISTORY: Reason for exam: falls, weak. TECHNIQUE: Axial computed tomography images of the cervical spine without intravenous contrast. CTDI is 21.27 mGy and DLP is 433.62 mGy-cm. Automated exposure control was utilized for the study. A dose lowering technique was utilized adhering to the principles of ALARA. COMPARISON: None FINDINGS: Bones: Normal alignment. No acute fracture or bony lesion. Disc spaces: No subluxation. Degenerative changes of the spine. Soft tissues: Normal. Other: Nonspecific 5 mm nodule in the left upper lobe. Right-sided Port-A-Cath partially visualized. IMPRESSION: No acute traumatic abnormality. Electronically signed by: Mohini Beckwith M.D. 05/28/23 20:33 PM Chest CTA 05/28/23 18:32 Exam(s): CTA CHEST IV Amt: 118ML OPTIRAY 320 EXAM: CT Angiography Chest With Intravenous Contrast CLINICAL HISTORY: Reason for exam: PE, falls, weak, cancer, pain chest. TECHNIQUE: Axial computed tomographic angiography images of the chest with intravenous contrast. CTDI is 14.25 mGy and DLP is 7.12 mGy-cm. Automated exposure control was utilized for the study. A dose lowering technique was utilized adhering to the principles of ALARA. MIP reconstructed images were created and reviewed. COMPARISON: None FINDINGS: Pulmonary arteries: Unremarkable. No pulmonary embolus identified. Aorta: No acute findings. No aortic aneurysm or dissection. Lungs: Possible small calcified granulomas or other chronic calcifications in the right middle lobe. Nonspecific 4 mm nodule in the left upper lobe. Probable nonspecific 1 cm nodule in the medial left lower lobe. Mild dependent atelectasis bilaterally. Pleural space: Trace bilateral pleural effusions. No pneumothorax. Heart: Unremarkable. No cardiomegaly. No significant pericardial effusion. No evidence of RV dysfunction. Mediastinum: Mild prominence of the wall of the esophagus may represent esophagitis. Bones/joints: Degenerative changes of the spine. No acute fracture. No dislocation. Soft tissues: Unremarkable. Lymph nodes: Unremarkable. No enlarged lymph nodes. Tubes, lines and devices: Right-sided Port-A-Cath terminates in the right atrium. Other: Please see accompanying CT abdomen/pelvis for further details. IMPRESSION: 1. No pulmonary embolus identified. 2. No aortic aneurysm or dissection. 3. Mild prominence of the wall of the esophagus may represent esophagitis. 4. Trace bilateral pleural effusions. 5. Nonspecific 4 mm nodule in the left upper lobe. Probable nonspecific 1 cm nodule in the medial left lower lobe. Electronically signed by: Mohini Beckwith M.D. 05/28/23 20:[address] 05/28/23 18:32 Exam(s): CT HEAD Without Contrast EXAM: CT Head Without Intravenous Contrast CLINICAL HISTORY: Reason for exam: falls, weak. TECHNIQUE: Axial computed tomography images of the head/brain without intravenous contrast. CTDI is 36.67 mGy and DLP is 624.41 mGy-cm. Automated exposure control was utilized for the study. A dose lowering technique was utilized adhering to the principles of ALARA. COMPARISON: None FINDINGS: Brain: No acute infarct or hemorrhage identified. No extra-axial fluid collection. No mass effect or midline shift. Scattered areas of hypoattenuation in the supratentorial white matter likely represent chronic small vessel ischemic changes. Ventricles and sulci: Prominence of the ventricles and sulci is likely secondary to cerebral volume loss. Bones: Normal. No bony lesion or acute fracture. Subcutaneous tissues: Normal. Sinuses: Normal. No air-fluid levels or mucosal thickening. Mastoid air cells: Normal. Orbits: Grossly unremarkable. Other: Atherosclerotic calcifications in the intracranial vasculature. IMPRESSION: 1. No acute intracranial abnormality. 2. Chronic small vessel ischemic changes and cerebral volume loss. Electronically signed by: Mohini Beckwith M.D. 05/28/23 19:56 PM Paracentesis Ultrasound 06/01/23 09:00 ULTRASOUND GUIDED PARACENTESIS CLINICAL HISTORY: Ascites Procedure: Procedure and risks were explained. Informed consent was obtained. A final timeout was completed. The abdomen was prepped and draped in sterile fashion. 1% buffered lidocaine was utilized for skin anesthesia. Utilizing ultrasound guidance, a 5 Upper Sorbian safety centesis catheter was introduced into the left upper quadrant pocket of ascites. Ultrasound images were obtained. Approximately 2.2 L of ascites fluid was drained and sent to the lab. The catheter was removed and Band-Aid applied. The patient tolerated the procedure well. Vital signs will be monitored postprocedure. [employer] Counter Associate: Mickey Hatch PA-C. IMPRESSION: Ultrasound guided paracentesis as described above. Performed, dictated, and signed by Mickey Hatch PA-C; to be co-signed by Dr. Dr Christiano Queen. Electronically signed by: Christinao Queen M.D. 06/01/2023 4:04 PM Chest X-Ray 06/03/23 13:44 XR chest 1V portable HISTORY: 77 years-old Male Leukocytosis acute leukocytosis COMPARISON: 05/28/2023 TECHNIQUE: AP view the chest FINDINGS: Cardiac mediastinal and hilar silhouettes are unchanged. Stable positioning of the right pectoral [place]-e-Hvrp catheter. Chronic right hemidiaphragmatic elevation. Probable trace pleural effusions. No pneumothorax or overt pulmonary edema or lobar airspace consolidation. Lungs are hypoinflated. Degenerative change of the shoulders and spine. IMPRESSION: 1. Cardiomegaly without acute process. 2. Probable trace pleural effusions persist. ACT 112: Negative or not required by law. The above report was generated using voice recognition software. It may contain grammatical, syntax or spelling errors. Electronically signed by: Christiano Queen M.D. 06/03/2023 2:58 PM Ordered Studies 05/28/23 18:32 CT abd pelvis IV con only Stat CT angio chest PE protocol Stat CT cervical spine wo con Stat CT head/brain wo con Stat 06/01/23 09:00 IR paracentesis abd w/img US Routine Hospital Course (1) Acute hyponatremia: Mr. 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 Patient admitted 05/28 for evaluation of such. Per admission HPO:" Because of his weakness his chemo is on hold for almost 4 weeks now. There is a plan to change his chemo. Lately patient having decreased p.o. intake. Feeling weak and fatigued. Last few days requiring significant help for transferring. Ambulates with a walker. Seems last night got stuck on the toilet for 1 hour until family was eventually able to help him. 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 Last admission January 2023 4 L were taken out --S/P paracentesis on 06/01/2023: 2.2 L removed --Received IV albumin, lasix -- Peritoneal fluid cultures negative to date --Empirically received Rocephin for SBP prophylaxis LFTs worsening due to mets Monitor volume status while off IV diuretics No plan to resume HCTZ, Aldactone for now given hyponatremia Continue Lasix 20mg daily as needed if BP tolerates Discharge to rehab facility today Severe hypervolemic hyponatremia Hypokalemia Sodium 123 on admission>>> 134 today HCTZ discontinued Received IV Lasix Appreciate nephrology input Monitor sodium, potassium levels Continue fluid restriction Continue p.o. Lasix as above Mild hyperkalemia Potassium 5.2>>4.2 Potassium supplements discontinued Monitor Leukocytosis No clear source of infection Monitor Constipation Continue bowel regimen Paroxysmal Atrial fibrillation PACS Questionable new A-fib on admission EKG, however, poor quality , repeat with PACs A fib noted on tele ECHO poor quality 2/2 ascites/poor acoustic windows per report Cardiology consulted Continue metoprolol tartrate--will adjust dose once BP more stable On Eliquis for anticoagulation General weakness Severe protein calorie malnutrition H/O Mechanical falls Follows with [facility] palliative care 05/13/2023 -Falls last Thursday per 05/28 palliative notes on [facility] Multiple missed appointments 2/2 weakness Weight down from 155 in 01/2023, Cachetic Vat Overhauler consulted Continue PT OT: Encouraged to cooperate with PT OT Stage IV colon cancer metastatic to liver and lungs Immunocompromised Transverse colon adenocarcinoma, Dx 2022 Currently chemo on hold for weakness since last 4 weeks -Recent changes in regimen, last treatment 5FU and leucovorin; transitioning to irinotecan, vectibix 2/2 disease progression -last follow 05/07/[address] Jeff Robbins -Last treatment 05/05 --Discussed with patient's on 06/02/2023: Defers decisions to patient. As per family, patient prefers to continue current management and expects to be discharged home and follow-up with oncology. Patient family expresses concern about inability to take care of the patient at home. Prefers patient to be discharged to rehab as able. --Discussed with oncology Dr. Robbins on 06/02/2023: Very poor prognosis per oncology. No further treatment recommended while hospitalized Needs follow-up with oncology on discharge Transaminitis Due to metastatic liver disease Hepatitis B core antibody positive LFTs worsening Elevated CPK levels Received getting fluids Downtrending, 820-->381 Chronic RLE DVT Hypercoagulable state 2/2 malignancy On Eliquis General anxiety disorder Depression On buspirone, Lexapro and Remeron Chronic pain iso malignancy Oxycodone as needed IV morphine as needed Follows with [facility] palliative care Iron deficiency anemia Patient is Nondenominational Hemoglobin stable at 11.9, baseline 10-11 Trend CBC, no blood product, -B12 1010, folate >22.30, iron51, TIBC 182/ferritin 469 DVT Px: Apixaban CODE STATUS Full code for now per patient's wishes Disposition Rehab Total Time Total Time Spent Total Time Spent (In Minutes): 58 minutes Discharge Plan Discharge Items Patient Disposition: Transfer Senior Living Fac Reason For Visit: WEAKNESS,HYPONATREMIA,METASTATIC COLON CANCER Discharge Diagnosis: Stage IV colon cancer metastatic to liver and lungs General weakness Severe protein calorie malnutrition Severe hypervolemic hyponatremia Ascites Activity: Per Instructions section Exercise/Sports: Gradually increase as tolerated Non-emergency contact: Primary Care Provider and Oncologist Call non-emergency contact if: you have any medication questions, your symptoms worsen, your pain is concerning for you and you have a fever Follow-up/Referrals: Escobar Iglesias D.O. [Primary Care Provider] - Dietitian Info: Minced and Moist Diet: Regular Fluids: 1500ml (6 cups) Addtl Attending Provider Instructions: Follow-up with your primary care physician in 1 week upon discharge from rehab facility Follow-up with your oncologist / as advised Follow-up with your trolley car overhauler in 2-3 weeks with repeat blood work (basic metabolic panel) Seek immediate medical attention if your symptoms reoccur or worsen Please take all medications as instructed on discharge list below. Please call if you have any questions or problems. You can reach a [facility] hospitalist on duty at [facility] 24 hours a day by calling [phone] Pending Studies at Discharge: No Stand-Alone Forms: My [facility] Skilled Items Patient informed of condition?: Yes DNR: No Discharge Level of Care: Skilled Communicable Disease: No Discharge Prognosis: Other Lines: None Urinary Catheter: No Medications and DC Order Prescriptions: New metoprolol tartrate 25 mg Tablet 12.5 mg PO BID Qty: 60 0RF polyethylene glycol 3350 [Miralax] 17 gram Powder In Packet 17 g PO DAILY PRN (Reason: constipation) Qty: 30 0RF furosemide [Lasix] 20 mg tablet 20 mg PO DAILY PRN (Reason: edema) Qty: 30 0RF Continued oxycodone 5 mg tablet 5 mg PO Q8 PRN (Reason: Pain) escitalopram oxalate 10 mg tablet 10 mg PO DAILY Eliquis 5 mg tablet 5 mg PO BID multivitamin Tablet 1 tab PO DAILY sennosides [senna] 8.6 mg Tablet 8.6 mg PO BID PRN (Reason: Constipation) ondansetron HCl 8 mg tablet 8 mg PO Q8 PRN (Reason: Nausea) mirtazapine 30 mg tablet 30 mg PO HS buspirone 10 mg tablet 10 mg PO TID loratadine 10 mg tablet 10 mg PO QAM Held hydrochlorothiazide 25 mg tablet 25 mg PO DAILY Hold Instructions: Until follow-up with your primary care physician for further instructions spironolactone 50 mg tablet 50 mg PO DAILY Hold Instructions: Until follow-up with your primary care physician Discharge Orders: Discharge Order (Routine); Ordered 06/05/23 Ordered By: Roge La Admission Data Admit Date/Time: 05/28/23 21:47 Attending Provider: Roge La Admit Provider: Júnior Glasgow Primary Care Provider: Escobar Iglesias Other Providers: Júnior Glasgow; Jenna Connelly
== END 2023-06-05 14:19 | DRG 640 ==
LOC: ED 17:47 → SUATTDRO 21:47 → 4W 21:47